=== PATIENT | male | born 1950 | race Caucasian/White ===

== ENCOUNTER 2016-11-10 12:25 | Inpatient (IN) | payer MEDICARE, MEDICAID ==
--- NOTE | 2016-11-10 12:55 | ED Physician Chart ---
Chief Complaint/HPI - Patient Information Date Seen:: 11/10/16 Time Seen:: 12:51 Chief Complaint:: geripsych eval History of Present Illness:: pt sent from [place] for difficult behavior. Was sent over for geripsych eval. pt arrives comfortable and cooperative. he denies any pain or recent illness. states he has no jl pmh. pt from [place]....pt has hx of schizophrenia....reportedly he sometimes runs screaming down hallways c/o hearing voices; this is the case again recently. Allergies:: Allergies Allergy/AdvReac Type Severity Reaction Status Date / Time fluphenazine Allergy Verified 11/10/16 12:32 trifluoperazine Allergy Verified 11/10/16 12:32 [From Stelazine] Vitals:: Vital Signs - 8 hr 11/10/16 12:25 Temp 98.5 F HR 85 RR 16 BP 123/83 O2 Sat % 98 Historian:: Patient, Medical Records Review:: Transfer documents Reviewed Review of Systems - Review of Systems General/Constitutional: No fever, No chills, No weight loss, No weakness, No diaphoresis, No edema, No loss of appetite Skin: No skin lesions, No rash, No bruising Head: No headache, No light-headedness Eyes: No loss of vision, No pain, No diplopia ENT: No earache, No nasal drainage, No sore throat, No tinnitus Neck: No neck pain, No swelling, No thyromegaly, No stiffness, No mass noted Cardio Vascular: No chest pain, No palpitations, No PND, No orthopnea, No edema Pulmonary: No SOB, No cough, No sputum, No wheezing GI: No nausea, No vomiting, No diarrhea, No pain, No melena, No hematochezia, No constipation, No hematemesis G/U: No dysuria, No frequency, No hematuria Musculoskeletal: No bone or joint pain, No back pain, No muscle pain Endocrine: No polyuria, No polydipsia Psychiatric: Prior psych history, No depression, No anxiety, No suicidal ideation, Auditory hallucination Hematopoietic: No bruising, No lymphadenopathy Allergic/Immuno: No urticaria, No angioedema Neurological: No syncope, No focal symptoms, No weakness, No paresthesia, No headache, No seizure, No dizziness, No confusion, No vertigo Past Medical History - Past Medical History Past Medical History: No significant medical hx, HTN, DM, CHF, Asthma/COPD, CVA/ TIA, Dyslipidemia, Arthritis, Other (scoliosis) Social History: Care Facility Psychiatricy History: Schizophrenia, Bipolar Medication: Reviewed Family Medical History - Family Member Mother History Unknown: Yes Hx Family Coronary Artery Disease: (NONE) Hx Family Congestive Heart Failure: (NONE) Physical Exam - Physical Examination General/Constitutional: Awake, Well-developed, well-nourished, Alert, No distress, GCS 15, Non-toxic appearing, Ambulatory Other Gen/Cons comments:: pt calm and cooperative in nad. no complaints. Head: Atraumatic Eyes: Lids, conjuctiva normal, PERRL, EOMI Skin: Nl inspection, No rash, No skin lesions, No ecchymosis, Well hydrated, No lymphadenopathy ENMT: External ears, nose nl, Nasal exam nl, Lips, teeth, gums nl Neck: Nontender, Full ROM w/o pain, No JVD, No nuchal rigidity, No bruit, No mass, No stridor Respiratory: Nl effort/Exclusion, Clear to Auscultation, No Wheeze/Rhonchi/Rales Cardio Vascular: RRR, No murmur, gallop, rubs, NL S1 S2 GI: No tenderness/rebounding/guarding, No organomegaly, No hernia, Normal BS's, Nondistended, No mass/bruits, No McBurney tenderness : No CVA tenderness Extremities: No tenderness or effusion, Full ROM, normal strength in all extremities, No edema, Normal digits & nails Neuro/Psych: Alert/oriented, DTR's symmetric, Normal sensory exam, Normal motor strength, Judgement/insight normal, Mood normal, Normal gait, No focal deficits Misc: normal gait, Normal back, No paraspinal tenderness Labs/Radiology/EKG Results - Lab Results Results: Laboratory Tests 11/10/16 11/10/16 11/10/16 12:50 12:50 12:50 WBC 7.0 D RBC 4.77 Hgb 13.8 Hct 41.0 MCV 85.9 MCH 28.8 MCHC Differential 33.5 RDW 13.5 Plt Count 226 MPV 8.3 Neutrophils % 56.2 Lymphocytes % 30.6 Monocytes % 7.4 Eosinophils % 5.0 Basophils % 0.8 Sodium 133 L Potassium 4.0 Chloride 102 Carbon Dioxide 26.1 Anion Gap 8.9 BUN 14 Creatinine 0.6 L Est GFR ( Amer) > 60.0 Est GFR (Non-Af Amer) > 60.0 BUN/Creatinine Ratio 23.3 Glucose 103 Calcium 9.5 Total Bilirubin 0.5 AST 20 ALT 15 Alkaline Phosphatase 57 Total Protein 6.7 Albumin 4.0 L Globulin 2.7 Albumin/Globulin Ratio 1.5 Triglycerides 136 Cholesterol 167 LDL Cholesterol Direct 97 HDL Cholesterol 55 TSH 1.33 Urine Source Urine Color Urine Clarity Urine pH Ur Specific [place] Urine Protein Urine Glucose (UA) Urine Ketones Urine Blood Urine Nitrate Urine Bilirubin Urine Urobilinogen Ur Leukocyte Esterase Urine RBC Urine WBC Ur Epithelial Cells Urine Bacteria Valproic Acid 11/10/16 11/10/16 12:50 13:00 WBC RBC Hgb Hct MCV MCH MCHC Differential RDW Plt Count MPV Neutrophils % Lymphocytes % Monocytes % Eosinophils % Basophils % Sodium Potassium Chloride Carbon Dioxide Anion Gap BUN Creatinine Est GFR ( Amer) Est GFR (Non-Af Amer) BUN/Creatinine Ratio Glucose Calcium Total Bilirubin AST ALT Alkaline Phosphatase Total Protein Albumin Globulin Albumin/Globulin Ratio Triglycerides Cholesterol LDL Cholesterol Direct HDL Cholesterol TSH Urine Source CLEAN C Urine Color YELLOW Urine Clarity SL. CLOUDY Urine pH 6.5 Ur Specific [place] 1.015 Urine Protein NEGATIVE Urine Glucose (UA) NEGATIVE Urine Ketones NEGATIVE Urine Blood NEGATIVE Urine Nitrate NEGATIVE Urine Bilirubin NEGATIVE Urine Urobilinogen 0.2 Ur Leukocyte Esterase NEGATIVE Urine RBC NONE SEEN Urine WBC NONE SEEN Ur Epithelial Cells RARE Urine Bacteria NONE SEEN Valproic Acid 25.7 L - EKG Interpretations EKG Time:: 13:15 Rhythm: nsr [place]: 11 Rate: 71 Comments:: wnl ED Septic Shock - . Is Septic Shock (SBP<90, OR Lactate>4 mmol\L) present?: No - <6hrs of presentation: Vital Signs: Vital Signs - 8 hr 11/10/16 12:25 Temp 98.5 F HR 85 RR 16 BP 123/83 O2 Sat % 98 Reassessment (Disposition) - Reassessment Reassessment Condition:: Unchanged - Diagnosis Diagnosis:: 1 psychosis 2 medically clear for psych admission - Patient Disposition Admitted to:: [facility] Condition at Disposition:: Unchanged ED Discharge Plan - Patient Disposition Admit/Discharge/Transfer: Other Care w/in this hosp Condition at Disposition: Stable
[2016-11-10 13:03] LABS: % BASOPHILS 0.8 % (0.0-2.0); % LYMPHOCYTES 30.6 % (20.0-50.0); % MONOCYTES 7.4 % (2.0-10.0); % NEUTROPHILS 56.2 % (40.0-80.0); HEMOGLOBIN 13.8 gm/dL (12.6-17.4); MEAN CELL VOLUME 85.9 fl (80-99); MEAN CORPUSCULAR HEMOGLOBIN 28.8 pg (27.0-31.0); MEAN CORPUSCULAR HGB CONC 33.5 pg (28.0-36.0); MEAN PLATELET VOLUME 8.3 fl; PLATELET COUNT 226 Th/cmm (150-400); RED BLOOD COUNT 4.77 Mil/cmm (3.80-5.80); RED CELL DISTRIBUTION WIDTH 13.5 % (11.5-20.0)
[2016-11-10 13:13] LABS: URINE BILIRUBIN NEGATIVE (NEGATIVE); URINE COLOR YELLOW; URINE GLUCOSE (UA) NEGATIVE (NEGATIVE); URINE KETONE NEGATIVE (NEGATIVE)
[2016-11-10 13:14] LABS: URINE BACTERIA NONE SEEN /hpf (NONE SEEN); URINE BLOOD NEGATIVE (NEGATIVE); URINE EPITHELIAL CELLS RARE /lpf (FEW); URINE PH 6.5; URINE PROTEIN NEGATIVE (NEGATIVE); URINE RBC NONE SEEN /hpf (0-5); URINE UROBILINOGEN 0.2 E.U./dL (0.2 - 1.0); URINE WBC NONE SEEN /hpf (0-5)
[2016-11-10 13:22] LABS: ALB/GLOB RATIO 1.5 (1.0-1.8); ALKALINE PHOSPHATASE 57 U/L (34-104); ANION GAP 8.9 (7.0-16.0); BILIRUBIN,TOTAL 0.5 mg/dL (0.3-1.0); BUN - UREA NITROGEN 14 mg/dL (7-25); BUN/CREATININE RATIO 23.3; CALCIUM SERUM 9.5 mg/dL (8.6-10.3); CARBON DIOXIDE 26.1 mEq/L (21.0-31.0); CHLORIDE 102 mEq/L (98-107); CHOLESTEROL 167 mg/dL (<200); CREATININE - SERUM 0.6 mg/dL (0.7-1.3); GLUCOSE 103 mg/dL (70-105); SGOT 20 U/L (13-39); SGPT/ALT 15 U/L (7-52); SODIUM SERUM 133 mEq/L (136-145); TRIGLYCERIDES 136 mg/dL (<150)
[2016-11-10 15:21] VITALS: BP 0/0
[2016-11-10] MEDS ORDERED: Magnesium Hydroxide (MOM) 30 mL UDC PO PRN (15:25)
[2016-11-10] MEDS ORDERED: Maalox 30 mL Cup PO PRN (15:25)
[2016-11-10] MEDS ORDERED: Non-Formulary Item 1 EA (Atorvastatin Calcium [Lipitor] 20 MG) PO SCH (21:00)
--- NOTE | 2016-11-11 01:10 | History & Physical ---
HISTORY OF PRESENT ILLNESS: The patient is a 66-year-old male with long history of hypertension, hyperlipidemia, degenerative joint disease, dementia, admitted to [facility] under Dr. Peguero's service for evaluation and treatment. The patient has been very confused, no chest pain, no shortness of breath, no nausea, no vomiting, no fever, no chills. PAST MEDICAL HISTORY: Significant for hypertension, degenerative joint disease, hyperlipidemia, dementia. PAST SURGICAL HISTORY: No history of recent surgery. ALLERGIES: He is allergic to fluphenazine, which is Prolixin and trifluoperazine. SOCIAL HISTORY: No smoking, alcohol or drugs. FAMILY HISTORY: Noncontributory. REVIEW OF SYSTEMS: RENAL SYSTEM: No history of chronic renal disorder. CARDIOVASCULAR SYSTEM: He has history of hypertension. ENDOCRINE SYSTEM: No diabetes or thyroid problem. GASTROINTESTINAL SYSTEM: No upper or lower gastrointestinal bleed. NEUROLOGICAL: He has history of dementia. PHYSICAL EXAMINATION: GENERAL: He is awake, not coherent. VITAL SIGNS: Temperature is 97.6, heart rate 95, blood pressure 100/64. HEENT: Normocephalic. Pupils reacting to light and accommodation. Sclerae clear. NECK: Supple. Negative for lymphadenopathy, JVD or bruit. CHEST: Bilaterally normal. No rhonchi or wheezing. HEART: S1, S2 normal. ____. ABDOMEN: Soft, bowel sounds positive. EXTREMITIES: No edema. BACK: No tenderness. SKIN: Intact. NEUROLOGIC: He is awake, alert, not fully oriented. No focal motor or sensory deficit. Cranial nerves II-XII intact. ASSESSMENT: 1. Hypertension. 2. Hyperlipidemia. 3. Degenerative joint disease. 4. Dementia. PLAN: The patient admitted to [facility] under Dr. Peguero's service. Medical problem to be addressed during hospitalization is dementia. Medical problems to be addressed at discharge are hypertension and hyperlipidemia. The patient is medically stable for activity. Thank you, Dr. Peguero, for asking me to see your patient. JOB# [id number]
[2016-11-11] MEDS: Multivitamin Tab PO SCH (09:23)
[2016-11-11] MEDS: Aspirin 81mg Chewable Tab PO SCH (09:23)
[2016-11-11] MEDS: Benztropine 1 MG TAB PO SCH (09:23)
[2016-11-11 10:18] LABS: HEP B CORE IGM Negative (Negative); HEP C ANTIBODY <0.1 s/co ratio (0.0-0.9)
--- NOTE | 2016-11-11 15:20 | History & Physical ---
IDENTIFYING INFORMATION: The patient is a 66-year-old male. CHIEF COMPLAINT: "I have been hearing voices." HISTORY OF PRESENT ILLNESS: Presents from [place] because of psychosis. When I talked to him, he agrees that he has been hearing voices and that he was rambling. He is unable to tell me the exact date. He knew this 2016, believe this is October 29, confused, unpredictable, impulsive. He denies having any command hallucination. He sleeps well, eats well. PAST PSYCHIATRIC HISTORY: The patient has a history of schizophrenia with multiple prior admissions to this facility for similar reasons. ALLERGIES: THE PATIENT IS ALLERGIC TO FLUPHENAZINE AND ____. MEDICATIONS: He has been on Tylenol, aspirin. He is on Cogentin 1 mg daily and metoprolol for hypertension and simvastatin, ____ multivitamin. The patient is also on Zyprexa 7.5 mg at bedtime. FAMILY AND SOCIAL HISTORY: Please refer to old records. The patient has been staying at the nursing facility for the past few years. MENTAL STATUS EXAMINATION: The patient is appropriately dressed, not well groomed, he was rambling, admits to hearing voices, but he said they tell him different things that are not command hallucinations. He was irritable, aggressive, unable to tell me the date, where he is, why he is here other than the voices. He believes this is October 26, 2016. Unable to make safe plan for self-care. He has been sleeping and eating well, he reports he is not a good historian. His long and short term memory is a poor because of his psychosis. His insight and judgment is impaired. IMPRESSION: AXIS I: Chronic undifferentiated schizophrenia. MEDICAL DIAGNOSES: Hypertension, hyperlipidemia. His assets, he is accepting treatment. Negative poor coping skills. TREATMENT PLAN: ____ medications. We will do group therapy, milieu therapy, and individual therapy. ESTIMATED LENGTH OF STAY: 3-7 days. DISCHARGE CRITERIA: Decrease in psychosis, agitation after discharge. JOB# [id number]
[2016-11-12] MEDS: Aspirin 81mg Chewable Tab PO SCH (08:38)
[2016-11-12] MEDS: Multivitamin Tab PO SCH (08:38)
[2016-11-12] MEDS: Benztropine 1 MG TAB PO SCH (08:39)
--- NOTE | 2016-11-13 08:26 | Progress Notes ---
Case was discussed with staff of the patient, reviewed records. The patient continues to be responding to internal stimuli. Continues to be unpredictable, impulsive, and needing redirection, internally preoccupied, irritable, and easily agitated. He is compliant with the medication with no side effects, no sedation, no nausea, and no extrapyramidal symptoms. I will be increasing his Zyprexa dose to 10 mg at bedtime. His Depakote level came back low at 25.7, so I will be increasing also his Depakote dose. His current dose of Depakote is 125 twice a day. I will make it 250 twice a day and recheck the level later. We will continue to work with the patient in group therapy, milieu therapy, and adjust the medication as needed. JOB# [id number]
[2016-11-13] MEDS: Benztropine 1 MG TAB PO SCH (09:07)
[2016-11-13] MEDS: Multivitamin Tab PO SCH (09:07)
[2016-11-13] MEDS: Aspirin 81mg Chewable Tab PO SCH (09:07)
--- NOTE | 2016-11-14 05:58 | Progress Notes ---
Case was discussed with staff of the patient, reviewed records. The patient continues to be unpredictable, impulsive, continues to have poor insight, needing redirection. He continues to be internally preoccupied. I did increase the dose of Zyprexa as well as Depakote yesterday. The Depakote level came back. He is compliant with the medication with no side effects, no sedation, no nausea, no extrapyramidal symptoms. Lab Work: Hepatitis panel was negative, CBC within normal range and urinalysis within normal range. His serum sodium is a little bit low at 133 and the rest of chemistry panel within normal range and TSH within normal range. I will be consulting with the medical doctor regarding his abnormal lab work regarding the low sodium level. We will continue to work with the patient in group therapy, milieu therapy, adjust the medication as needed. JOB# [id number]
[2016-11-14] MEDS: Aspirin 81mg Chewable Tab PO SCH (09:59)
[2016-11-14] MEDS: Benztropine 1 MG TAB PO SCH (10:00)
[2016-11-14] MEDS: Multivitamin Tab PO SCH (10:00)
--- NOTE | 2016-11-15 05:43 | Progress Notes ---
Case was discussed with staff of the patient, reviewed records. The patient continues to hear voices. He reports he is not sleeping well at night. Continues to look disheveled, disorganized, internally preoccupied, continues to need redirection and unable to take care of his ADLs. I will be increasing his Zyprexa dose to 12.5 mg at bedtime and so far no side effects, no sedation, no nausea and we will continue to work with the patient in group therapy, milieu therapy and adjust the medications as needed. JOB# [id number]
[2016-11-15] MEDS: Multivitamin Tab PO SCH (09:09)
[2016-11-15] MEDS: Benztropine 1 MG TAB PO SCH (09:09)
[2016-11-15] MEDS: Aspirin 81mg Chewable Tab PO SCH (09:10)
--- NOTE | 2016-11-16 03:12 | Progress Notes ---
Case was discussed with staff of the patient, reviewed records. The patient reports he continues to hear voices. He continues to not sleep well. Continues to be internally preoccupied, looking disheveled, disorganized. Continues to be unable to make safe plan for his self-care. I did increase his olanzapine yesterday to 12.5; however, he is not sleeping well. I will be increasing the Ambien to 10 mg at bedtime, also increase Zyprexa because of the voices to 15 mg at bedtime to help with his sleep. No side effects with the medication, no sedation, no nausea, no extrapyramidal symptoms. We will continue to work with the patient in group therapy, milieu therapy, adjust the medications as needed. JOB# [id number]
[2016-11-16] MEDS: Benztropine 1 MG TAB PO SCH (08:34)
[2016-11-16] MEDS: Multivitamin Tab PO SCH (08:34)
[2016-11-16] MEDS: Aspirin 81mg Chewable Tab PO SCH (08:34)
--- NOTE | 2016-11-17 03:40 | Progress Notes ---
Case was discussed with staff of the patient. The patient reports he continues to hear voices and therefore, he is not sleeping well. I did increase his Zyprexa yesterday to 15 mg at bedtime with no side effects, no sedation, no nausea. We will give it more time to work, as it may not work at the beginning and I will be adding trazodone to his medication to help him with sleep. So far, no side effects, no sedation, no nausea, no extrapyramidal symptoms. We will continue to work with the patient in group therapy, milieu therapy, adjust the medication as needed. JOB# [id number]
[2016-11-17] MEDS: Benztropine 1 MG TAB PO SCH (08:43)
[2016-11-17] MEDS: Multivitamin Tab PO SCH (08:43)
[2016-11-17] MEDS: Aspirin 81mg Chewable Tab PO SCH (08:44)
--- NOTE | 2016-11-18 06:23 | Progress Notes ---
Case was discussed with staff of the patient, reviewed records. The patient reports he continues to hear voices. He is unable to sleep, but he is able to contract for safety. He is not doing well on the higher dose of Zyprexa and I have been increasing the dose daily. He did better, he reports on Seroquel, so I will be discontinuing the Zyprexa and starting the patient on Seroquel, discuss side effects with the patient, so the [facility] and we will continue to work with the patient in group therapy, milieu therapy and adjust the medication as needed. JOB# [id number]
[2016-11-18] MEDS: Aspirin 81mg Chewable Tab PO SCH (09:09)
[2016-11-18] MEDS: Multivitamin Tab PO SCH (09:09)
[2016-11-18] MEDS: Benztropine 1 MG TAB PO SCH (09:10)
--- NOTE | 2016-11-19 08:23 | Progress Notes ---
SUBJECTIVE: The patient seen, chart reviewed, discussed with staff. The patient in the hospital attesting to voices, worsening psychosis, rambling, confused, impulsive, unpredictable, stating that "I get mad", feels medications are not really helping. The patient not sofia for safety, desperate for help, unpredictable, impulsive, still with intense auditory hallucinations. Dr. Peguero is adjusting medications. The patient currently now on Seroquel, tolerating well. No side effects noted. Sleeping fairly well, eating with prompting. ASSESSMENT: The patient remains symptomatic, not safe for a lower level of care, still with intense hallucinations. PLAN: We will increase Seroquel today. Monitor closely for any overt side effects. Continue concerns for the patient's safety. [facility]# [id number]
[2016-11-19] MEDS: Multivitamin Tab PO SCH (08:25)
[2016-11-19] MEDS: Benztropine 1 MG TAB PO SCH (08:25)
[2016-11-19] MEDS: Aspirin 81mg Chewable Tab PO SCH (08:25)
--- NOTE | 2016-11-20 02:34 | Progress Notes ---
SUBJECTIVE: The patient seen, chart reviewed, discussed with staff. The patient remains symptomatic, telling me he hears "crazy voices," states the voices are commanding in nature and he scared and distressed, withdrawn, paranoid, isolative, needs medications, states that he wants medications, adjust ____, states that he gets "upset" because of the voices, still with intense auditory hallucinations, impulsive, unpredictable. Sleeping fairly well, eating with prompting, ADLs with prompting. No EPS. No akathisia noted. ASSESSMENT: The patient is symptomatic, still hallucinating. PLAN: Continue to monitor. We will continue to reassure the patient. Given the severity of his current symptoms, he is not safe for a lower level of care. We will also increase his Seroquel to 150 mg at nighttime to target his psychotic symptoms. [facility]# [id number]
[2016-11-20] MEDS: Aspirin 81mg Chewable Tab PO SCH (08:53)
[2016-11-20] MEDS: Multivitamin Tab PO SCH (08:53)
[2016-11-20] MEDS: Benztropine 1 MG TAB PO SCH (08:53)
--- NOTE | 2016-11-21 01:31 | Progress Notes ---
SUBJECTIVE: The patient is seen, chart reviewed, discussed with staff. The patient remains symptomatic, still talking about "crazy voices", not sofia for safety, depressed, upset, still with hallucinations, still unpredictable, sleeping fairly well, eating fairly well. No EPS. No akathisia noted. Still requiring prompting for ADLs. Concerns for his ability to provide for basic food, clothing and residential. ASSESSMENT: The patient is still symptomatic, still psychotic. PLAN: Continue to monitor. We will continue to titrate medications. The patient remains symptomatic, not safe for a lower level of care. [facility]# [id number]
[2016-11-21] MEDS: Multivitamin Tab PO SCH (09:15)
[2016-11-21] MEDS: Benztropine 1 MG TAB PO SCH (09:15)
[2016-11-21] MEDS: Aspirin 81mg Chewable Tab PO SCH (09:15)
--- NOTE | 2016-11-22 00:39 | Progress Notes ---
SUBJECTIVE: The patient is seen, chart reviewed, discussed with staff. The patient is still talking about voices. Stating the voices "tease me." States the voices "say crazy things to me," still distressing about the voices, depressed, upset, paranoid, isolative, withdrawn, still requiring prompting for ADLs, not doing well due to the severity of his psychotic symptoms, concerns for his ability to utilize basic food, clothing, and detention, spending most of his time in his room, withdrawn. ASSESSMENT: The patient is still symptomatic, still psychotic, still with voices that are distressing. PLAN: We will continue to monitor, we will continue to titrate medications, we will increase Seroquel to 200 mg to try to further target perceptual disturbances. [facility]# [id number]
--- NOTE | 2016-11-22 04:54 | Progress Notes ---
SUBJECTIVE: The patient seen, chart reviewed, discussed with staff. The patient under the care of Dr. Peguero. Remains symptomatic, disorganized, poor orientation, no idea what is going on, stating that he wants to stay home, but this does not making any sense in the context to being in the hospital, still combative, withdrawn, requiring a lot of prompting and redirection, still with episodes of irritability, agitation, unable to participate in any meaningful conversations, requiring prompting for basic food, clothing and [facility]. No EPS noted on exam. Tolerant to medications. ASSESSMENT: The patient remains symptomatic, not safe for a lower level of care. We will continue to monitor. PLAN: We will increase Risperdal to target his combative symptoms, psychotic symptoms, disorganized thought processes. JOB# [id number]
[2016-11-22] MEDS: Benztropine 1 MG TAB PO SCH (09:07)
[2016-11-22] MEDS: Multivitamin Tab PO SCH (09:07)
[2016-11-22] MEDS: Aspirin 81mg Chewable Tab PO SCH (09:07)
--- NOTE | 2016-11-23 00:51 | Progress Notes ---
Case discussed with staff of the patient, reviewed records. The patient continues to report hearing voices. He is unable to sleep well. He continues to be unpredictable, impulsive. Looking disheveled, though he denies any intent to harm himself or anybody. Dr. Vickers increased his Seroquel dose today to be increased to 200 mg or give it a chance. He is compliant with the medication with no side effects, no sedation, no nausea, no extrapyramidal symptoms and we will make further adjustment of the medication depending on how he feels tomorrow. We will continue to work the patient in group therapy, milieu therapy, adjust medication as needed. JOB# [id number]
[2016-11-23] MEDS: Aspirin 81mg Chewable Tab PO SCH (09:15)
[2016-11-23] MEDS: Benztropine 1 MG TAB PO SCH (09:15)
[2016-11-23] MEDS: Multivitamin Tab PO SCH (09:15)
--- NOTE | 2016-11-23 23:36 | Progress Notes ---
Case discussed with staff of the patient, reviewed records. The patient reports hearing voices, but denies command hallucination. He also complained of feeling depressed. He continues to be overwhelmed, continues to be bothered by the voices. I will be increasing the dose, also I will be adding an antidepressant to him, Lexapro and so far no side effects with the medication, no sedation, no nausea, no extrapyramidal symptoms. Discussed the side effects with the patient. Continue the patient in group therapy, milieu therapy, and adjust the medication as needed. JOB# [id number]
[2016-11-24] MEDS: Aspirin 81mg Chewable Tab PO SCH (08:21)
[2016-11-24] MEDS: Escitalopram Oxalate 5 mg Tab PO SCH (08:22)
[2016-11-24] MEDS: Benztropine 1 MG TAB PO SCH (08:22)
[2016-11-24] MEDS: Multivitamin Tab PO SCH (08:22)
--- NOTE | 2016-11-25 02:36 | Progress Notes ---
Case was discussed with staff of the patient, reviewed records. The patient ____ the voices are improving. He accepted that he only slept 3 hours last night. He reports the voices are not command hallucination, ____ about suicide. He said he would never harm himself. He however continues to isolate himself, continues to be unpredictable, impulses, needing redirection, though he denies any intent to harm himself or anybody. He is sleeping, not well. I will be increasing the Seroquel to 400 mg at bedtime and so far no side effects, no sedation, no nausea and no extrapyramidal symptoms. We will continue to work the patient in group therapy, milieu therapy and adjust the medication as needed. JOB# [id number]
[2016-11-25] MEDS: Multivitamin Tab PO SCH (09:14)
[2016-11-25] MEDS: Escitalopram Oxalate 5 mg Tab PO SCH (09:14)
[2016-11-25] MEDS: Benztropine 1 MG TAB PO SCH (09:14)
[2016-11-25] MEDS: Aspirin 81mg Chewable Tab PO SCH (09:14)
[2016-11-25] MEDS ORDERED: Escitalopram Oxalate 5 mg Tab PO SCH (12:06)
--- NOTE | 2016-11-26 05:54 | Progress Notes ---
Case was discussed with staff of the patient, reviewed records. The patient continues to report hearing voices. They are not command hallucination. He reports he would never try to harm himself; however, the voices are bothersome. He is sleeping better. He also reported that he is still depressed. I will be increasing his Lexapro dose to 10 mg a day as he is having no side effects to this. He just started it and also his dose of Seroquel will be increased to 500. The patient used to be on a higher dose of Seroquel in the past and if it does not work, we may have to change it and so far no side effects of the medication, no sedation, no nausea, no extrapyramidal symptoms and we will continue to work the patient in group therapy, milieu therapy and adjust medication as needed. JOB# [id number]
[2016-11-26] MEDS: Multivitamin Tab PO SCH (08:39)
[2016-11-26] MEDS: Benztropine 1 MG TAB PO SCH (08:39)
[2016-11-26] MEDS: Aspirin 81mg Chewable Tab PO SCH (08:39)
[2016-11-26] MEDS: risperiDONE 1 mg/mL 30 mL Bottle PO SCH (17:39)
[2016-11-26] MEDS ORDERED: QUETIAPINE FUMARATE PO SCH (21:00)
--- NOTE | 2016-11-26 21:46 | Progress Notes ---
Case was discussed with staff of the patient, reviewed records. The patient reports he is still not sleeping well. He reports that he is still hearing voices. He believes that Seroquel is not working, he has been on it for 5 days, despite increasing the dose. I will be taking him off the Seroquel, try him on Risperdal, discussed that with the patient, side effects included. He is still not suitable for discharge because of continued psychotic symptoms; however, his hallucinations are not command. He is also not sleeping well, so I will be increasing his trazodone dose to 100 mg a day. We will continue to work with the patient in group therapy, milieu therapy, adjust the medication as needed. JOB# [id number]
[2016-11-27] MEDS: Aspirin 81mg Chewable Tab PO SCH (08:28)
[2016-11-27] MEDS: Benztropine 1 MG TAB PO SCH (08:29)
[2016-11-27] MEDS: Multivitamin Tab PO SCH (08:29)
[2016-11-27] MEDS: risperiDONE 1 mg/mL 30 mL Bottle PO SCH ×2 (08:30→16:31)
--- NOTE | 2016-11-27 21:24 | Progress Notes ---
SUBJECTIVE: The patient seen, chart reviewed. Discussed with staff. The patient remains paranoid, states his mood is "not good," states "everyone is against me," still attesting to voices. The patient being tapered off of Seroquel, now on Risperdal. Dr. Peguero started him on Risperdal to target psychotic symptoms, which remain present. Sleeping fairly well, eating with prompting, ADLs with prompting. He is withdrawn and isolative. ASSESSMENT: The patient remains isolative, withdrawn, depressed, still symptomatic, still with voices. We will continue to monitor and titrate his medications. The patient is not safe for a lower level of care due to the severity of his symptoms. [facility]# [id number]
[2016-11-28] MEDS: Aspirin 81mg Chewable Tab PO SCH (08:59)
[2016-11-28] MEDS: Benztropine 1 MG TAB PO SCH (08:59)
[2016-11-28] MEDS: Multivitamin Tab PO SCH (08:59)
[2016-11-28] MEDS: risperiDONE 1 mg/mL 30 mL Bottle PO SCH ×2 (09:01→17:18)
--- NOTE | 2016-11-28 21:13 | Progress Notes ---
SUBJECTIVE: Chart reviewed and the patient interviewed. Also discussed the patient's condition with the staff and reviewed records and labs. "I couldn't sleep. I hear voices and I am crazy." The patient is still in angry and irritable mood and is still actively hallucinating. The patient also is still staying by himself in his room most of the time. The patient also is still paranoid and he is still having mood swings. Otherwise, the patient is having difficulty with his mood and he is still angry all the time. Also, he is compliant with taking his medications with no side effects of medications. ASSESSMENT: The patient is still psychotic. TREATMENT PLAN: We will continue monitoring his behavior and his condition closely. Also, continue to work on his irritability and we will continue to follow up. [facility]# [id number]
[2016-11-29] MEDS: risperiDONE 1 mg/mL 30 mL Bottle PO SCH ×2 (09:09→16:46)
[2016-11-29] MEDS: Multivitamin Tab PO SCH (09:10)
[2016-11-29] MEDS: Benztropine 1 MG TAB PO SCH (09:10)
[2016-11-29] MEDS: Aspirin 81mg Chewable Tab PO SCH (09:10)
--- NOTE | 2016-11-29 21:38 | Progress Notes ---
Case discussed with staff of the patient, reviewed records. The patient continues to be depressed, feeling worthless, continues to have poor insight. Continues to report hearing voices, but they are not command hallucinations. He continues to be overwhelmed and psychotic, looking disheveled, disorganized, internally preoccupied. I did initiate on him, Risperdal 1 mg twice a day. I will be increasing the dose to 2 mg twice a day and so far no side effects, no sedation, no nausea, no extrapyramidal symptoms and also I will be increasing the trazodone to 200 to help with his sleep and we will continue to work with the patient in group therapy, milieu therapy, adjust the medication as needed. JOB# [id number]
[2016-11-30] MEDS: risperiDONE 1 mg/mL 30 mL Bottle PO SCH ×2 (09:10→17:48)
[2016-11-30] MEDS: Benztropine 1 MG TAB PO SCH (09:12)
[2016-11-30] MEDS: Multivitamin Tab PO SCH (09:12)
[2016-11-30] MEDS: Aspirin 81mg Chewable Tab PO SCH (09:14)
--- NOTE | 2016-12-01 02:07 | Progress Notes ---
Case discussed with staff of the patient, reviewed records. The patient continues to be fairly psychotic. Reports hearing voices. The patient also reported that he feels like people are going to murder him. He is very paranoid, unable to sleep. I did increase his trazodone yesterday. I doubled the dose; however, it does not seem like it is working for him, so I will be taking him off the trazodone and give him Remeron instead and also I will be discussing side effects and also I will be increasing Risperdal to 3 mg twice a day. So far, no side effects of the medication, no sedation, no nausea, and no extrapyramidal symptoms. We will continue to work with the patient in group therapy, milieu therapy, and adjust the medication as needed. JOB# [id number]
[2016-12-01] MEDS: Benztropine 1 MG TAB PO SCH (08:15)
[2016-12-01] MEDS: Aspirin 81mg Chewable Tab PO SCH (08:15)
[2016-12-01] MEDS: Multivitamin Tab PO SCH (08:15)
[2016-12-01] MEDS: risperiDONE 1 mg/mL 30 mL Bottle PO SCH ×2 (08:21→17:01)
--- NOTE | 2016-12-01 23:01 | Progress Notes ---
Case was discussed with staff of the patient, reviewed record. The patient reports he did not sleep well last night, still hearing voices, still paranoid, feeling that he is going to be murdered. He continues to be easily agitated. He is overwhelmed because of poor response to his medication. I have made many adjustments so far with no good outcome. I will be increasing the Depakote today, maybe he will respond better to the antipsychotic and help him with his agitation. Also, I will be increasing the Risperdal to 4 mg twice a day and so far, no side effects with the medication, no sedation, no nausea, no extrapyramidal symptoms. Also, I asked the staff to make sure that the patient is taking his medications and we will continue to work with the patient in group therapy, milieu therapy, adjust the medication as needed. JOB# [id number]
[2016-12-02] MEDS: Benztropine 1 MG TAB PO SCH (08:31)
[2016-12-02] MEDS: Multivitamin Tab PO SCH (08:32)
[2016-12-02] MEDS: Aspirin 81mg Chewable Tab PO SCH (08:33)
[2016-12-02] MEDS: risperiDONE 1 mg/mL 30 mL Bottle PO SCH ×2 (09:44→17:44)
[2016-12-02 13:05] LABS: % BASOPHILS 0.7 % (0.0-2.0); % EOSINOPHILS 4.8 % (0.0-5.0); % LYMPHOCYTES 27.4 % (20.0-50.0); % NEUTROPHILS 59.1 % (40.0-80.0); HEMATOCRIT 43.1 % (39.0-49.0); HEMOGLOBIN 14.4 gm/dL (12.6-17.4); MEAN CELL VOLUME 86.1 fl (80-99); MEAN CORPUSCULAR HEMOGLOBIN 28.8 pg (27.0-31.0); MEAN CORPUSCULAR HGB CONC 33.5 pg (28.0-36.0); MEAN PLATELET VOLUME 8.6 fl; NEUTROPHILE ABSOLUTE 4.9 Th/cmm (1.8-8.0); PLATELET COUNT 233 Th/cmm (150-400); RED BLOOD COUNT 5.01 Mil/cmm (3.80-5.80); RED CELL DISTRIBUTION WIDTH 13.6 % (11.5-20.0); WHITE BLOOD COUNT 8.4 Th/cmm (4.8-10.8)
--- NOTE | 2016-12-02 22:03 | Progress Notes ---
Case was discussed with staff of the patient, reviewed records. He continues to be psychotic, hearing knocks on the wall, very agitated. I have gotten a second opinion from Dr. Hickey, who recommended using Clozaril for him since he is not doing well. We tried him on many medications, so I will be initiating Clozaril on the patient, discussed side effects and so far, no side effects with the medication, no sedation, no nausea, no extrapyramidal symptoms. We will titrate Risperdal down later and we will continue to work with the patient in group therapy, milieu therapy, adjust medication as needed. JOB# [id number]
[2016-12-03] MEDS: risperiDONE 1 mg/mL 30 mL Bottle PO SCH ×2 (09:04→18:17)
[2016-12-03] MEDS: Aspirin 81mg Chewable Tab PO SCH (09:05)
[2016-12-03] MEDS: Benztropine 1 MG TAB PO SCH (09:05)
[2016-12-03] MEDS: Multivitamin Tab PO SCH (09:05)
--- NOTE | 2016-12-03 21:38 | Progress Notes ---
Case discussed with staff of the patient who reports he feels a little bit better, though he is still hearing voices. He still reports not sleeping well. I advised the patient to make sure if he is not sleeping well to tell the staff about it because the staff reports he sleeps well. He continues to be unpredictable and impulsive. I initiated Clozaril for the patient on a small dose and for the covering psychiatrist, I would recommend to increase the Clozaril dose and so far no side effects with the medication, no sedation, no nausea, no extrapyramidal symptoms. We will continue to work with the patient in group therapy, milieu therapy, and adjust the medication as needed. JOB# [id number]
[2016-12-04] MEDS: Aspirin 81mg Chewable Tab PO SCH (08:20)
[2016-12-04] MEDS: Multivitamin Tab PO SCH (08:21)
[2016-12-04] MEDS: Benztropine 1 MG TAB PO SCH (08:22)
[2016-12-04] MEDS: risperiDONE 1 mg/mL 30 mL Bottle PO SCH ×2 (08:28→16:15)
--- NOTE | 2016-12-04 20:02 | Progress Notes ---
SUBJECTIVE: The patient was seen, chart reviewed, discussed with staff. The patient remains symptomatic, still noted to be hearing voices. The patient with perceptual disturbances, still feeling "not good." Dr. Peguero initiated Clozaril, titrating the dose. The patient seems to be tolerating well. Remains depressed, withdrawn, desperate for help. Sleeping well. Eating fairly well. ASSESSMENT: The patient remains symptomatic, still psychotic, not safe for a lower level of care. PLAN: Initiate Clozaril. We will titrate it over the next few days. Monitor closely for any undue side effects. Due to the severity of his psychotic symptoms, he is not safe for discharge at this time. [facility]# [id number]
[2016-12-05] MEDS: risperiDONE 1 mg/mL 30 mL Bottle PO SCH ×3 (08:12→16:34)
[2016-12-05] MEDS: Aspirin 81mg Chewable Tab PO SCH (08:12)
[2016-12-05] MEDS: Multivitamin Tab PO SCH (08:12)
[2016-12-05] MEDS: Benztropine 1 MG TAB PO SCH (08:12)
--- NOTE | 2016-12-05 18:30 | Progress Notes ---
SUBJECTIVE: The patient seen, chart reviewed and discussed with staff. The patient is still symptomatic, still with hallucinations complaining of hallucinations that are disturbing to him. He is asking for some help, desperate for help, depressed and overwhelmed with the voices. The patient is still very upset, isolative and withdrawn. The patient is redirectable following any rules and redirection, but he does remain somewhat disorganized and psychotic and tolerant of Clozaril. ASSESSMENT: The patient remains symptomatic, still psychotic, still with voices that are disturbing to him that are causing him to feel overwhelmed, but desperate. PLAN: We will lower Risperdal today. We will increase Clozaril today. Monitor closely for any overt side effects. [facility]# [id number]
[2016-12-06] MEDS: Benztropine 1 MG TAB PO SCH (09:08)
[2016-12-06] MEDS: Multivitamin Tab PO SCH (09:08)
[2016-12-06] MEDS: Aspirin 81mg Chewable Tab PO SCH (09:08)
[2016-12-06] MEDS: risperiDONE 1 mg/mL 30 mL Bottle PO SCH ×2 (09:09→17:58)
--- NOTE | 2016-12-07 01:07 | Progress Notes ---
Case was discussed with staff of the patient, reviewed records. The patient continues to report hearing voices. He feels that people are going to murder him, he is loud, very irritable, agitated. He reports his sleep is improved a little bit, so his dose of Clozaril was increased to 25 mg at bedtime and 25 mg in the morning, I will be increasing the evening dose to 50 mg a day and so far, no side effects, no sedation, no nausea, no extrapyramidal symptoms. Risperdal dose was decreased to 3 mg twice a day and I will later taper him off the Risperdal and no side effects, no sedation, no nausea, no extrapyramidal symptoms, and we will continue to work with the patient in group therapy, milieu therapy, adjust the medication as needed. JOB# [id number]
[2016-12-07] MEDS: Benztropine 1 MG TAB PO SCH (08:40)
[2016-12-07] MEDS: Aspirin 81mg Chewable Tab PO SCH (08:40)
[2016-12-07] MEDS: Multivitamin Tab PO SCH (08:40)
[2016-12-07] MEDS: risperiDONE 1 mg/mL 30 mL Bottle PO SCH ×2 (08:41→16:58)
--- NOTE | 2016-12-07 23:40 | Progress Notes ---
Case discussed with staff of the patient, reviewed records. The patient continues to be hearing voices, paranoid. He believes the voices are trying to harm him. He continues to be floridly psychotic, not sleeping well, easily agitated, isolating himself. I will be increasing his Clozaril dose at bedtime to 75 mg to help him with sleep and help with psychotic symptoms. He is still not ready to go because of his psychosis, lack of sleep, paranoia. No side effects with the medication, no sedation, no nausea, no extrapyramidal symptoms. I will also taper his Risperdal as well to 2 mg twice a day and maybe stop it later and we will continue to work with the patient in group therapy, milieu therapy, adjust the medication as needed. JOB# [id number]
[2016-12-08] MEDS: Aspirin 81mg Chewable Tab PO SCH (09:38)
[2016-12-08] MEDS: Benztropine 1 MG TAB PO SCH (09:39)
[2016-12-08] MEDS: Multivitamin Tab PO SCH (09:40)
[2016-12-08] MEDS: risperiDONE 1 mg/mL 30 mL Bottle PO SCH ×2 (09:42→18:01)
--- NOTE | 2016-12-08 19:09 | Progress Notes ---
Case was discussed with staff of the patient, reviewed records. The patient continues to be psychotic, loud, continues to be responding to internal stimuli. However, he reports his sleep has improved a little bit. He is still depressed, still unpredictable and impulsive. I will be increasing his Clozaril dose to 100 mg at bedtime and continue the 25 mg in the morning. So far, no side effects with the medication, no sedation, no nausea, and no extrapyramidal symptoms. He is still not ready to go because of his continued psychosis and agitation. We will continue to work with the patient in group therapy, milieu therapy, and adjust the medication as needed. JOB# [id number]
[2016-12-09] MEDS: Aspirin 81mg Chewable Tab PO SCH (09:56)
[2016-12-09] MEDS: Multivitamin Tab PO SCH (09:56)
[2016-12-09] MEDS: Benztropine 1 MG TAB PO SCH (09:56)
[2016-12-09 10:22] LABS: % BASOPHILS 0.8 % (0.0-2.0); % EOSINOPHILS 6.1 % (0.0-5.0); % LYMPHOCYTES 28.4 % (20.0-50.0); % MONOCYTES 12.1 % (2.0-10.0); % NEUTROPHILS 52.6 % (40.0-80.0); HEMATOCRIT 42.4 % (39.0-49.0); HEMOGLOBIN 14.1 gm/dL (12.6-17.4); MEAN CELL VOLUME 86.5 fl (80-99); MEAN CORPUSCULAR HEMOGLOBIN 28.7 pg (27.0-31.0); MEAN CORPUSCULAR HGB CONC 33.2 pg (28.0-36.0); MEAN PLATELET VOLUME 8.4 fl; NEUTROPHILE ABSOLUTE 3.6 Th/cmm (1.8-8.0); PLATELET COUNT 207 Th/cmm (150-400); RED CELL DISTRIBUTION WIDTH 13.6 % (11.5-20.0); WHITE BLOOD COUNT 6.8 Th/cmm (4.8-10.8)
[2016-12-09] MEDS: risperiDONE 1 mg/mL 30 mL Bottle PO SCH ×2 (11:14→17:52)
--- NOTE | 2016-12-10 06:48 | Progress Notes ---
LOCATION: [facility]. Case was discussed with staff of the patient, reviewed records. The patient is ____ Clozaril. He reported the voices are still there, they are loud, they are bothering him. He feels paranoid. He is still not ready to go to a lesser level of care. He has a high eosinophil and monocyte, but his ____ is within normal range. He said he is sleeping a little bit better. He is still loud, irritable, internally preoccupied, paranoid. He is still not ready to go. I will be increasing Clozaril to 125 mg at bedtime and so far, no side effects, no sedation, no nausea, no extrapyramidal symptoms. We will continue to work with the patient in group therapy, milieu therapy, adjust medication as needed. JOB# [id number]
[2016-12-10] MEDS: Multivitamin Tab PO SCH (08:25)
[2016-12-10] MEDS: Benztropine 1 MG TAB PO SCH (08:25)
[2016-12-10] MEDS: Aspirin 81mg Chewable Tab PO SCH (08:25)
[2016-12-10] MEDS: risperiDONE 1 mg/mL 30 mL Bottle PO SCH (08:26)
--- NOTE | 2016-12-10 22:34 | Progress Notes ---
Case discussed with staff of the patient, reviewed records. The patient continues to report hearing voices. He said that he is improving. He continues to isolate himself, continues to be unpredictable, impulsive. He reports he is sleeping better. He continues to have poor insight, unable to make safe plan for his self-care. I will be increasing his Clozaril at bedtime to 150 and I will be decreasing also Risperdal to 1 mg twice a day with the intent of discontinuing it and so far, no side effects with the medication, no sedation, no nausea, no extrapyramidal symptoms and we will continue to work with the patient in group therapy, milieu therapy, adjust medication as needed. [facility]# [id number]
[2016-12-11] MEDS: risperiDONE 1 mg/mL 30 mL Bottle PO SCH ×2 (08:23→16:58)
[2016-12-11] MEDS: Multivitamin Tab PO SCH (08:24)
[2016-12-11] MEDS: Aspirin 81mg Chewable Tab PO SCH (08:24)
[2016-12-11] MEDS: Benztropine 1 MG TAB PO SCH (08:24)
[2016-12-11] MEDS ORDERED: Maalox 30 mL Cup PO PRN (12:54)
--- NOTE | 2016-12-11 20:17 | Progress Notes ---
SUBJECTIVE: Chart reviewed and the patient interviewed. Also discussed the patient's condition with the staff and reviewed records and labs. The patient is still reporting auditory hallucinations and the patient is still stating that the voices are bothering him. The patient also states that the voices although getting slightly less, yet he is still unable to tolerate them. It ____ to isolate himself and is interacting minimally with others. The patient also has unpredictable behavior and he is still impulsive. Otherwise, the patient is cooperative with his treatment and compliant with taking his medications with no side effects of medications. ASSESSMENT: The patient is still paranoid and psychotic. TREATMENT PLAN: We will continue monitoring his behavior and his condition closely. Also, we will continue adjusting psychotropic medications and we will continue to follow up. [facility]# [id number]
[2016-12-12] MEDS: Aspirin 81mg Chewable Tab PO SCH (08:40)
[2016-12-12] MEDS: Multivitamin Tab PO SCH (08:40)
[2016-12-12] MEDS: Benztropine 1 MG TAB PO SCH (08:41)
[2016-12-12] MEDS: risperiDONE 1 mg/mL 30 mL Bottle PO SCH ×2 (08:42→17:31)
--- NOTE | 2016-12-12 22:07 | Progress Notes ---
SUBJECTIVE: Chart reviewed and the patient interviewed. Also discussed the patient's condition with the staff and reviewed records and labs. The patient is still actively hallucinating and he is still complaining of auditory hallucinations "a little bit" and the patient was pointing out with 2 fingers indicating that they are still ____, but in a small amount. The patient is also still paranoid and suspicious and still stating that although the voices are declining, yet he is still bothered by them and they are still keeping him in angry and in irritable mood. The patient also is still suspicious and his thought processes are circumstantial with occasional flight of ideas. ASSESSMENT: The patient is still psychotic and needs close monitoring. TREATMENT PLAN: We will continue monitoring his behavior and his condition closely. Also, we will continue working on his psychosis and adjusting psychotropic medications and we will continue to follow up. JOB# [id number]
[2016-12-13] MEDS: risperiDONE 1 mg/mL 30 mL Bottle PO SCH (08:55)
[2016-12-13] MEDS: Aspirin 81mg Chewable Tab PO SCH (08:56)
[2016-12-13] MEDS: Multivitamin Tab PO SCH (08:56)
[2016-12-13] MEDS: Benztropine 1 MG TAB PO SCH (08:56)
--- NOTE | 2016-12-13 21:52 | Discharge Summary ---
IDENTIFYING INFORMATION: The patient is a 66-year-old male. CHIEF COMPLAINT: "I've been hearing voices." HISTORY OF PRESENT ILLNESS: The patient admitted from [place] because of psychosis. The patient has been hearing voices. He was rambling, unable to tell me the exact date. He knew that it was 2016 ____ October 29, confused, unpredictable, impulsive. He denies having command hallucination. He has a history of schizophrenia with multiple prior admissions to this facility. COURSE IN THE HOSPITAL: The patient was continued with medications. I added Lexapro 10 mg daily and at the beginning he was on Zyprexa, the dose was increased with no progress, changed to Seroquel, increased the dose with no progress. So, I did consult Dr. Hickey, recommended Clozaril, so the patient was started on Clozaril, the dose was increased to 25 mg in the morning and 150 mg at bedtime. The patient progressively got better, though he reported he was hearing them, but not on a constant basis. They come and go. He was not acting in any way dangerous. He never said at all at any point that he was going to harm himself. He was never acting in any way dangerous, so we felt since he is going to a nursing facility, which I go to, that we continue to monitor him at the custodial. So, he was also started on Depakote, increased the dose to 500 mg twice a day, and so the patient was discharged to a lesser level of care. FINAL DIAGNOSES: AXIS I: Chronic undifferentiated schizophrenia. MEDICAL DIAGNOSES: Hypertension, hyperlipidemia. The patient will be going back to [place]. The patient will be followed up with me and the primary care physician there. Expected outcome is stable if the patient complies with the above. JOB# [id number]
== END 2016-12-13 15:00 | DRG 885 ==
LOC: ER 12:25 → GERO 14:25
PROVIDERS: ADMIT Psychiatry & Neurology Psychiatry; ATTEND Psychiatry & Neurology Psychiatry
DX: F20.9 Schizophrenia, unspecified (principal); I11.0 Hypertensive heart disease with heart failure; I50.9 Heart failure, unspecified; F03.90 Unspecified dementia, unspecified severity, without behavioral disturbance, psychotic disturbance, mood disturbance, and anxiety; E11.9 Type 2 diabetes mellitus without complications; J45.909 Unspecified asthma, uncomplicated; J44.9 Chronic obstructive pulmonary disease, unspecified; E78.5 Hyperlipidemia, unspecified; M19.90 Unspecified osteoarthritis, unspecified site; M41.9 Scoliosis, unspecified; F31.9 Bipolar disorder, unspecified; F29 Unspecified psychosis not due to a substance or known physiological condition; Z88.8 Allergy status to other drugs, medicaments and biological substances; Z86.73 Personal history of transient ischemic attack (TIA), and cerebral infarction without residual deficits
CPT/HCPCS: 36415-UA; 80053-TC; 80061-TC; 80074-90; 80164-TC; 81001-TC; 84443-TC; 85025-TC; 86592-TC; 90899; 93005; G0410; Z7610

== ENCOUNTER 2017-05-26 14:02 | Inpatient (IN) | payer MEDICARE, MEDICAID ==
--- NOTE | 2017-05-26 14:16 | ED Physician Chart ---
Chief Complaint/HPI - Patient Information Date Seen:: 05/26/17 Time Seen:: 14:05 Chief Complaint:: visual hallucinations History of Present Illness:: At [facility] he has reportedly been seeing snakes. He thinks that someone is watching him. The EMT got the report that he has been crying a lot. Allergies:: Allergies Allergy/AdvReac Type Severity Reaction Status Date / Time fluphenazine Allergy Verified 11/10/16 12:32 trifluoperazine Allergy Verified 11/10/16 12:32 [From Stelazine] Historian:: Patient, EMS Review:: Nurse's Note Reviewed Review of Systems - Review of Systems General/Constitutional: No fever, No chills Skin: No skin lesions Head: No headache Eyes: No loss of vision ENT: No earache Neck: No neck pain Cardio Vascular: No chest pain, No palpitations Pulmonary: No SOB GI: No nausea, No vomiting G/U: No dysuria, No hematuria Musculoskeletal: No bone or joint pain, No muscle pain Psychiatric: Prior psych history, Visual hallucination Hematopoietic: No bruising Allergic/Immuno: No urticaria, No angioedema Neurological: No syncope, No focal symptoms Past Medical History - Past Medical History Past Medical History: HTN, DM, CHF, Asthma/COPD, Dyslipidemia, Arthritis, Other (hyperlipidemia; paranoid schizophrenia; dementia; major depression cerebrovascular disease; bipolar disorder; scoliosis) Family History: Other (not available) Social History: Non Smoker, No Alcohol, Care Facility Surgical History: other (not available) Psychiatricy History: Schizophrenia, Bipolar, Dementia Medication: Reviewed Family Medical History - Family Member Mother History Unknown: Yes Hx Family Coronary Artery Disease: (NONE) Hx Family Congestive Heart Failure: (NONE) Physical Exam - Physical Examination General/Constitutional: Awake, Well-developed, well-nourished, Alert, No distress Other Gen/Cons comments:: Patient knows the correct month but not the year Head: Atraumatic Eyes: Lids, conjuctiva normal Skin: Nl inspection, No rash, No skin lesions, No ecchymosis, Well hydrated ENMT: External ears, nose nl, TM canals nl, Nasal exam nl Other ENMT comments:: Edentulous Neck: No nuchal rigidity Respiratory: Nl effort/Exclusion, Clear to Auscultation, No Wheeze/Rhonchi/Rales Cardio Vascular: RRR GI: No tenderness/rebounding/guarding, No organomegaly, No hernia : No CVA tenderness Extremities: No tenderness or effusion, Normal digits & nails Neuro/Psych: Alert/oriented Labs/Radiology/EKG Results - Lab Results Results: Laboratory Results - last 24 hr 05/26/17 05/26/17 05/26/17 14:12 14:12 14:12 WBC 9.6 D RBC 5.05 Hgb 14.3 Hct 43.4 MCV 86.0 MCH 28.3 MCHC Differential 32.9 RDW 13.8 Plt Count 268 D MPV 8.3 Neutrophils % 76.9 Lymphocytes % 14.3 L Monocytes % 8.2 Eosinophils % 0.6 Basophils % 0.0 Sodium 137 Potassium 3.5 Chloride 106 Carbon Dioxide 25.3 Anion Gap 9.2 BUN 14 Creatinine 0.7 Est GFR ( Amer) > 60.0 Est GFR (Non-Af Amer) > 60.0 BUN/Creatinine Ratio 20.0 Glucose 109 H Calcium 9.7 Total Bilirubin 0.8 AST 25 ALT 17 Alkaline Phosphatase 76 Total Protein 7.2 Albumin 4.1 L Globulin 3.1 Albumin/Globulin Ratio 1.3 Triglycerides 83 Cholesterol 136 LDL Cholesterol Direct 79 HDL Cholesterol 46 TSH 1.01 Valproic Acid 05/26/17 14:12 WBC RBC Hgb Hct MCV MCH MCHC Differential RDW Plt Count MPV Neutrophils % Lymphocytes % Monocytes % Eosinophils % Basophils % Sodium Potassium Chloride Carbon Dioxide Anion Gap BUN Creatinine Est GFR ( Amer) Est GFR (Non-Af Amer) BUN/Creatinine Ratio Glucose Calcium Total Bilirubin AST ALT Alkaline Phosphatase Total Protein Albumin Globulin Albumin/Globulin Ratio Triglycerides Cholesterol LDL Cholesterol Direct HDL Cholesterol TSH Valproic Acid < 10.0 L - EKG Interpretations Rate & Rhythm: normal sinus rhythm with a rate of 88; normal axis; no ST or T changes ED Septic Shock - . Is Septic Shock (SBP<90, OR Lactate>4 mmol\L) present?: No Reassessment (Disposition) - Reassessment Reassessment Condition:: Unchanged - Diagnosis Diagnosis:: Schizophrenia with visual hallucinations - Patient Disposition Admitted to:: [facility] Admitting Medical Physician:: Thierry Bedoya Admitting Psych Physician:: Diandra Peguero
[2017-05-26 14:26] LABS: % EOSINOPHILS 0.6 % (0.0-5.0); % LYMPHOCYTES 14.3 % (20.0-50.0); % MONOCYTES 8.2 % (2.0-10.0); % NEUTROPHILS 76.9 % (40.0-80.0); HEMATOCRIT 43.4 % (39.0-49.0); HEMOGLOBIN 14.3 gm/dL (12.6-17.4); MEAN CORPUSCULAR HEMOGLOBIN 28.3 pg (27.0-31.0); MEAN CORPUSCULAR HGB CONC 32.9 pg (28.0-36.0); MEAN PLATELET VOLUME 8.3 fl; NEUTROPHILE ABSOLUTE 7.3 Th/cmm (1.8-8.0); RED BLOOD COUNT 5.05 Mil/cmm (3.80-5.80); RED CELL DISTRIBUTION WIDTH 13.8 % (11.5-20.0)
[2017-05-26 14:40] LABS: ALB/GLOB RATIO 1.3 (1.0-1.8); ALKALINE PHOSPHATASE 76 U/L (34-104); ANION GAP 9.2 (7.0-16.0); BILIRUBIN,TOTAL 0.8 mg/dL (0.3-1.0); BUN - UREA NITROGEN 14 mg/dL (7-25); CALCIUM SERUM 9.7 mg/dL (8.6-10.3); CARBON DIOXIDE 25.3 mEq/L (21.0-31.0); CHLORIDE 106 mEq/L (98-107); CHOLESTEROL 136 mg/dL (<200); CREATININE - SERUM 0.7 mg/dL (0.7-1.3); GLUCOSE 109 mg/dL (70-105); POTASSIUM SERUM 3.5 mEq/L (3.5-5.1); SGOT 25 U/L (13-39); SGPT/ALT 17 U/L (7-52); SODIUM SERUM 137 mEq/L (136-145); TRIGLYCERIDES 83 mg/dL (<150)
[2017-05-26 14:41] LABS: PLATELET COUNT 268 Th/cmm (150-400); WHITE BLOOD COUNT 9.6 Th/cmm (4.8-10.8)
[2017-05-26 17:16] VITALS: BP 134/74
[2017-05-26] MEDS ORDERED: Magnesium Hydroxide (MOM) 30 mL UDC PO PRN (17:19)
[2017-05-26] MEDS ORDERED: Non-Formulary Item 1 EA (Melatonin [Melatonin] 3 MG) PO SCH (21:00)
--- NOTE | 2017-05-26 22:20 | History & Physical ---
ADMIT DATE: 05/26/2017 HISTORY OF PRESENT ILLNESS: The patient is a 67-year-old male with long history of diabetes mellitus, hypertension, COPD, dementia, admitted to [facility] for treatment. Apparently, the patient has been very confused, agitated. The patient has been coughing phlegm. The patient . The patient is a poor historian. PAST MEDICAL HISTORY: Significant for hypertension, COPD, diabetes mellitus, dementia. PAST SURGICAL HISTORY: No recent surgery. ALLERGIES: ALLERGIC TO FLUPHENAZINE AND TRIFLUOPERAZINE. MEDICATIONS: Follow admission reconciliation. SOCIAL HISTORY: He is a chronic smoker. No alcohol or drugs. FAMILY HISTORY: Noncontributory. REVIEW OF SYSTEMS: RENAL SYSTEM: No history of chronic renal disorder. CARDIOVASCULAR SYSTEM: No coronary artery disease. ENDOCRINE SYSTEM: He has history of diabetes mellitus. GASTROINTESTINAL SYSTEM: No upper or lower gastrointestinal bleed. NEUROLOGICAL: He has history of dementia. SKELETOMUSCULAR: Has severe kyphosis and osteoporosis. RESPIRATORY: He has history of and COPD. GENITOURINARY: No dysuria or hematuria. PHYSICAL EXAMINATION: GENERAL: He is awake, not coherent. VITAL SIGNS: Temperature 98.6, heart rate 98, blood pressure ____. HEENT: Normocephalic. Pupils reacting to light and accommodation. Sclerae clear. NECK: Supple. Negative for lymphadenopathy, JVD or bruit. CHEST: ____. HEART: S1, S2 normal. ABDOMEN: Soft, bowel sounds positive. EXTREMITIES: No edema. NEUROLOGIC: Awake, not coherent. LABORATORY DATA: White blood cell 9.6, hemoglobin 14.3, hematocrit 43.4, platelet is 268. Sodium 137, potassium 3.5, BUN is 14, creatinine ____. Valproic acid less than 10. ASSESSMENT: 1. Hypertension. 2. Diabetes mellitus. 3. Chronic obstructive pulmonary disease. 4. Dementia. PLAN: The patient is admitted to the hospital and admitted to the Geropsych Department under Dr. Peguero's service. MEDICAL PROBLEMS FOR THIS HOSPITALIZATION: Dementia, psychosis, COPD, diabetes mellitus. MEDICAL PROBLEMS TO BE ADDRESSED AT DISCHARGE: Hypertension, COPD, cessation of smoking, the patient is medically stable for activity. Thank you, Dr. Peguero, for asking me to see your patient. JOB# [id number]
[2017-05-26] MEDS: Albuterol/Ipratropium Neb 3 ML AERS HHN SCH (23:33)
[2017-05-27] MEDS: INSULIN ASPART SLIDING SCALE 100 UNITS/ML UNIT SUBQ SCH (06:17)
[2017-05-27] MEDS: Albuterol/Ipratropium Neb 3 ML AERS HHN SCH ×3 (07:07→22:27)
[2017-05-27] MEDS ORDERED: INSULIN ASPART SLIDING SCALE 100 UNITS/ML UNIT SUBQ SCH (07:30)
[2017-05-27] MEDS ORDERED: Non-Formulary Item 1 EA (Docusate Sodium [Docusate Sodium] 100 MG) PO SCH (09:00)
[2017-05-27] MEDS: Multivitamin w/ Minerals Tab PO SCH (09:03)
[2017-05-27] MEDS: Aspirin 81mg Chewable Tab PO SCH (09:04)
--- NOTE | 2017-05-27 13:04 | Psychosocial Evaluation ---
DATE OF SERVICE: 05/27/2017 IDENTIFYING INFORMATION: The patient is a 67-year-old male. CHIEF COMPLAINT: The patient was referred from [place] because of hallucinations. HISTORY OF PRESENT ILLNESS: The patient himself was a poor historian. He was crying uncontrollably saying that he has a heart attack. He was delusional, reports hearing voices, but they are not command hallucinations, seeing things hard to be controlled. He has apparently been taken of the Clozaril, has not been on any medication so his psychotic symptoms got worse. He denies any current intent to harm himself or anybody. He has not been able to sleep well and eat well. No substance abuse. PAST PSYCHIATRIC HISTORY: Multiple prior admissions to this facility for similar reasons. MEDICAL HISTORY: ALLERGIC TO FLUPHENAZINE, TRIFLUOPERAZINE. He is diabetic. He on insulin. He also has a high triglyceride and on simvastatin. FAMILY AND SOCIAL HISTORY: The patient is single, never , no children. No family involvement. Denies family history of psychotic disorder, and this is according to records. No legal problem. No substance abuse problem. MENTAL STATUS EXAMINATION: The patient is appropriately dressed, not well groomed. He was crying uncontrollably, hard to become consoled. He believed he had a heart attack. He reports hearing voices, but they are not command hallucination. He does not ____ tell him seeing things, unable to tell me what he is seeing. Unable to participate in memory testing because he was overwhelmed, crying, hard to redirect. He reports poor sleep, poor energy, motivation, poor appetite. His insight and judgment is impaired. IMPRESSION: AXIS I: Schizoaffective disorder. MEDICAL DIAGNOSES: Deferred to the medical doctor. His assets, he wants to get help, negative poor coping skills. INITIAL TREATMENT PLAN: The patient will be continued with Seroquel that we started yesterday and then increase the dose. I will be initiating also Remeron on him to help him with his depressive symptoms. We will do group therapy, milieu therapy, individual therapy. ESTIMATED LENGTH OF STAY: 3-7 days. DISCHARGE CRITERIA: Decrease in depression and psychosis. After discharge, outpatient treatment. [facility]# [id number]
--- NOTE | 2017-05-27 20:25 | Internal Medicine Prog Note ---
Internal Medicine Subjective - Subjective Service Date: 05/27/17 Patient seen and examined:: with staff (HE HAS BEEN THROUGHING UP INTENTIOLY.) Patient is:: awake, non-verbal, in bed Per staff patient has:: no adverse event Internal Medicine Objective - Results Result Diagrams: 05/26/17 14:12 05/26/17 14:12 Recent Labs: Laboratory Last Values WBC 9.6 Th/cmm (4.8-10.8) D 05/26/17 14:12 RBC 5.05 Mil/cmm (3.80-5.80) 05/26/17 14:12 Hgb 14.3 gm/dL (12.6-17.4) 05/26/17 14:12 Hct 43.4 % (39.0-49.0) 05/26/17 14:12 MCV 86.0 fl (80-99) 05/26/17 14:12 MCH 28.3 pg (27.0-31.0) 05/26/17 14:12 MCHC Differential 32.9 pg (28.0-36.0) 05/26/17 14:12 RDW 13.8 % (11.5-20.0) 05/26/17 14:12 Plt Count 268 Th/cmm (150-400) D 05/26/17 14:12 MPV 8.3 fl 05/26/17 14:12 Neutrophils % 76.9 % (40.0-80.0) 05/26/17 14:12 Lymphocytes % 14.3 % (20.0-50.0) L 05/26/17 14:12 Monocytes % 8.2 % (2.0-10.0) 05/26/17 14:12 Eosinophils % 0.6 % (0.0-5.0) 05/26/17 14:12 Basophils % 0.0 % (0.0-2.0) 05/26/17 14:12 Sodium 137 mEq/L (136-145) 05/26/17 14:12 Potassium 3.5 mEq/L (3.5-5.1) 05/26/17 14:12 Chloride 106 mEq/L (98-107) 05/26/17 14:12 Carbon Dioxide 25.3 mEq/L (21.0-31.0) 05/26/17 14:12 Anion Gap 9.2 (7.0-16.0) 05/26/17 14:12 BUN 14 mg/dL (7-25) 05/26/17 14:12 Creatinine 0.7 mg/dL (0.7-1.3) 05/26/17 14:12 Est GFR ( Amer) > 60.0 ml/min (>90) 05/26/17 14:12 Est GFR (Non-Af Amer) > 60.0 ml/min 05/26/17 14:12 BUN/Creatinine Ratio 20.0 05/26/17 14:12 Glucose 109 mg/dL (70-105) H 05/26/17 14:12 POC Glucose 94 MG/DL (70 - 105) 05/27/17 05:42 Calcium 9.7 mg/dL (8.6-10.3) 05/26/17 14:12 Total Bilirubin 0.8 mg/dL (0.3-1.0) 05/26/17 14:12 AST 25 U/L (13-39) 05/26/17 14:12 ALT 17 U/L (7-52) 05/26/17 14:12 Alkaline Phosphatase 76 U/L (34-104) 05/26/17 14:12 Total Protein 7.2 gm/dL (6.0-8.3) 05/26/17 14:12 Albumin 4.1 gm/dL (4.2-5.5) L 05/26/17 14:12 Globulin 3.1 gm/dL 05/26/17 14:12 Albumin/Globulin Ratio 1.3 (1.0-1.8) 05/26/17 14:12 Triglycerides 83 mg/dL (<150) 05/26/17 14:12 Cholesterol 136 mg/dL (<200) 05/26/17 14:12 LDL Cholesterol Direct 79 mg/dL (75-193) 05/26/17 14:12 HDL Cholesterol 46 mg/dL (23-92) 05/26/17 14:12 TSH 1.01 uIU/ml (0.34-5.60) 05/26/17 14:12 Valproic Acid < 10.0 ug/mL (50.0-100.0) L 05/26/17 14:12 - Physical Exam Vitals and I&O: Vital Signs Temp 98.2 F 05/27/17 16:22 Pulse 84 05/27/17 16:22 Resp 18 05/27/17 16:22 BP 126/77 05/27/17 16:22 Pulse Ox 96 05/27/17 16:22 Intake & Output 05/27/17 05/27/17 05/28/17 06:59 18:59 06:59 Intake Total 850 Balance 850 Intake: Oral 850 Other: # Voids 4 # Bowel Movements 0 Active Medications: Current Medications Acetaminophen (Tylenol) 650 mg PO Q4HR PRN PRN Reason: Pain (Mild) Stop: 07/25/17 17:18 Albuterol/Ipratropium (Duoneb Neb) 3 ml HHN Q8HRT [facility] Stop: 07/25/17 22:59 Last Admin: 05/27/17 14:01 Dose: 3 ml Aspirin (Aspirin Chewable) 81 mg PO DAILY [facility] Stop: 07/26/17 08:59 Last Admin: 05/27/17 09:04 Dose: 81 mg Docusate Sodium (Colace) 100 mg PO BID [facility] Stop: 07/26/17 08:59 Last Admin: 05/27/17 17:18 Dose: Not Given Insulin Aspart (Novolog Insulin Sliding Scale) 0 units SUBQ 0630 [facility] PRN Reason: Protocol Stop: 07/26/17 06:29 Last Admin: 05/27/17 06:17 Dose: Not Given Lorazepam (Ativan) 0.5 mg PO Q4HR PRN; Protocol PRN Reason: Anxiety Stop: 06/25/17 17:19 Last Admin: 05/26/17 20:14 Dose: 0.5 mg Magnesium Hydroxide (Milk Of Magnesia) 30 ml PO DAILY PRN PRN Reason: Constipation Stop: 07/25/17 17:18 Metoprolol Tartrate (Lopressor) 25 mg PO BID [facility] Stop: 07/26/17 08:59 Last Admin: 05/27/17 17:18 Dose: Not Given Mirtazapine (Remeron) 7.5 mg PO HS [facility] PRN Reason: Protocol Stop: 07/26/17 20:59 Quetiapine Fumarate (Seroquel) 150 mg PO BID [facility] PRN Reason: Protocol Stop: 07/26/17 16:59 Last Admin: 05/27/17 17:00 Dose: Not Given Simvastatin (Zocor) 20 mg PO HS [facility] PRN Reason: Protocol Stop: 07/25/17 20:59 Last Admin: 05/26/17 20:14 Dose: 20 mg Zolpidem Tartrate (Ambien) 5 mg PO HS PRN PRN Reason: Insomnia Stop: 07/25/17 17:19 General: alert, demented, thin HEENT: PERRLA, EOMI, anicteric sclerae, throat clear Neck: Supple, No JVD, No thyromegaly, +2 carotid pulse wo bruit, No LAD Lungs: CTAB, ronchi Cardiovascular: RRR, Normal S1, Normal S2, without murmur Abdomen: non-tender Extremities: clear Neurological: no change - Procedures Procedures: Procedures Procedure Code Date GROUP PSYCHOTHERAPY 81195 07/16/15 GROUP PSYCHOTHERAPY GZHZZZZ 07/16/15 [facility] PSYCHOTHERAP NEC 94.39 09/06/13 OTHER GROUP THERAPY 94.44 05/03/14 RECREATIONAL THERAPY 93.81 08/25/12 Internal Medicine Assmt/Plan - Assessment Assessment: 1.DM. 2.COPD 3.HTN. 4.DEMENTIA. - Plan Plan: CONTINUE ON CURRENT MEDICATION AND DIET.
[2017-05-28] MEDS: INSULIN ASPART SLIDING SCALE 100 UNITS/ML UNIT SUBQ SCH (06:40)
[2017-05-28] MEDS: Albuterol/Ipratropium Neb 3 ML AERS HHN SCH ×2 (07:27→14:46)
[2017-05-28] MEDS: Multivitamin w/ Minerals Tab PO SCH (08:12)
[2017-05-28] MEDS: Aspirin 81mg Chewable Tab PO SCH (08:12)
[2017-05-28 08:42] LABS: % EOSINOPHILS 0.2 % (0.0-5.0); % LYMPHOCYTES 16.1 % (20.0-50.0); % NEUTROPHILS 76.7 % (40.0-80.0); HEMATOCRIT 44.4 % (39.0-49.0); HEMOGLOBIN 14.7 gm/dL (12.6-17.4); MEAN CELL VOLUME 86.4 fl (80-99); MEAN CORPUSCULAR HEMOGLOBIN 28.5 pg (27.0-31.0); MEAN PLATELET VOLUME 8.5 fl; NEUTROPHILE ABSOLUTE 7.9 Th/cmm (1.8-8.0); PLATELET COUNT 275 Th/cmm (150-400); RED BLOOD COUNT 5.14 Mil/cmm (3.80-5.80); WHITE BLOOD COUNT 10.3 Th/cmm (4.8-10.8)
[2017-05-28 08:59] LABS: ALB/GLOB RATIO 1.4 (1.0-1.8); ALKALINE PHOSPHATASE 77 U/L (34-104); ANION GAP 12.6 (7.0-16.0); BILIRUBIN,TOTAL 0.8 mg/dL (0.3-1.0); BUN - UREA NITROGEN 27 mg/dL (7-25); BUN/CREATININE RATIO 33.8; CALCIUM SERUM 10.2 mg/dL (8.6-10.3); CHLORIDE 103 mEq/L (98-107); CREATININE - SERUM 0.8 mg/dL (0.7-1.3); GLUCOSE 120 mg/dL (70-105); POTASSIUM SERUM 3.6 mEq/L (3.5-5.1); SGOT 23 U/L (13-39); SGPT/ALT 16 U/L (7-52); SODIUM SERUM 139 mEq/L (136-145)
--- NOTE | 2017-05-28 10:10 | Diagnostic Imaging Report ---
Exam: KUB. HISTORY: Vomiting. Findings: Supine examination of the abdomen was reviewed. The study demonstrates nonspecific bowel gas pattern. Bony structures intact. No abnormal masses or calcifications are noted. IMPRESSION: Nonspecific bowel gas pattern.
--- NOTE | 2017-05-28 12:23 | Internal Medicine Prog Note ---
Internal Medicine Subjective - Subjective Service Date: 05/28/17 Patient seen and examined:: with staff Patient is:: awake, non-verbal, in bed Per staff patient has:: no adverse event Internal Medicine Objective - Results Result Diagrams: 05/28/17 08:35 05/28/17 08:35 Recent Labs: Laboratory Last Values WBC 10.3 Th/cmm (4.8-10.8) 05/28/17 08:35 RBC 5.14 Mil/cmm (3.80-5.80) 05/28/17 08:35 Hgb 14.7 gm/dL (12.6-17.4) 05/28/17 08:35 Hct 44.4 % (39.0-49.0) 05/28/17 08:35 MCV 86.4 fl (80-99) 05/28/17 08:35 MCH 28.5 pg (27.0-31.0) 05/28/17 08:35 MCHC Differential 33.0 pg (28.0-36.0) 05/28/17 08:35 RDW 14.0 % (11.5-20.0) 05/28/17 08:35 Plt Count 275 Th/cmm (150-400) 05/28/17 08:35 MPV 8.5 fl 05/28/17 08:35 Neutrophils % 76.7 % (40.0-80.0) 05/28/17 08:35 Lymphocytes % 16.1 % (20.0-50.0) L 05/28/17 08:35 Monocytes % 7.0 % (2.0-10.0) 05/28/17 08:35 Eosinophils % 0.2 % (0.0-5.0) 05/28/17 08:35 Basophils % 0.0 % (0.0-2.0) 05/28/17 08:35 Sodium 139 mEq/L (136-145) 05/28/17 08:35 Potassium 3.6 mEq/L (3.5-5.1) 05/28/17 08:35 Chloride 103 mEq/L (98-107) 05/28/17 08:35 Carbon Dioxide 27.0 mEq/L (21.0-31.0) 05/28/17 08:35 Anion Gap 12.6 (7.0-16.0) 05/28/17 08:35 BUN 27 mg/dL (7-25) H 05/28/17 08:35 Creatinine 0.8 mg/dL (0.7-1.3) 05/28/17 08:35 Est GFR ( Amer) > 60.0 ml/min (>90) 05/28/17 08:35 Est GFR (Non-Af Amer) > 60.0 ml/min 05/28/17 08:35 BUN/Creatinine Ratio 33.8 05/28/17 08:35 Glucose 120 mg/dL (70-105) H 05/28/17 08:35 POC Glucose 110 MG/DL (70 - 105) H 05/28/17 05:46 Calcium 10.2 mg/dL (8.6-10.3) 05/28/17 08:35 Total Bilirubin 0.8 mg/dL (0.3-1.0) 05/28/17 08:35 AST 23 U/L (13-39) 05/28/17 08:35 ALT 16 U/L (7-52) 05/28/17 08:35 Alkaline Phosphatase 77 U/L (34-104) 05/28/17 08:35 Total Protein 7.6 gm/dL (6.0-8.3) 05/28/17 08:35 Albumin 4.4 gm/dL (4.2-5.5) 05/28/17 08:35 Globulin 3.2 gm/dL 05/28/17 08:35 Albumin/Globulin Ratio 1.4 (1.0-1.8) 05/28/17 08:35 Triglycerides 83 mg/dL (<150) 05/26/17 14:12 Cholesterol 136 mg/dL (<200) 05/26/17 14:12 LDL Cholesterol Direct 79 mg/dL (75-193) 05/26/17 14:12 HDL Cholesterol 46 mg/dL (23-92) 05/26/17 14:12 TSH 1.01 uIU/ml (0.34-5.60) 05/26/17 14:12 Valproic Acid < 10.0 ug/mL (50.0-100.0) L 05/26/17 14:12 RPR NONREACTIVE (NONREACTIVE) 05/26/17 14:12 - Physical Exam Vitals and I&O: Vital Signs Temp 98 F 05/27/17 20:47 Pulse 87 05/27/17 22:37 Resp 20 05/27/17 22:37 BP 106/64 05/27/17 20:47 Pulse Ox 97 05/27/17 22:37 Intake & Output 05/27/17 05/28/17 05/28/17 18:59 06:59 18:59 Intake Total 850 240 Output Total 1 Balance 850 239 Intake: Oral 850 240 Output: Urine 1 Other: # Voids 4 # Bowel Movements 0 Active Medications: Current Medications Acetaminophen (Tylenol) 650 mg PO Q4HR PRN PRN Reason: Pain (Mild) Stop: 07/25/17 17:18 Albuterol/Ipratropium (Duoneb Neb) 3 ml HHN Q8HRT [facility] Stop: 07/25/17 22:59 Last Admin: 05/28/17 07:27 Dose: 3 ml Aspirin (Aspirin Chewable) 81 mg PO DAILY [facility] Stop: 07/26/17 08:59 Last Admin: 05/28/17 08:12 Dose: Not Given Docusate Sodium (Colace) 100 mg PO BID [facility] Stop: 07/26/17 08:59 Last Admin: 05/28/17 08:12 Dose: Not Given Insulin Aspart (Novolog Insulin Sliding Scale) 0 units SUBQ 0630 [facility] PRN Reason: Protocol Stop: 07/26/17 06:29 Last Admin: 05/28/17 06:40 Dose: Not Given Lorazepam (Ativan) 0.5 mg PO Q4HR PRN; Protocol PRN Reason: Anxiety Stop: 06/25/17 17:19 Last Admin: 05/26/17 20:14 Dose: 0.5 mg Magnesium Hydroxide (Milk Of Magnesia) 30 ml PO DAILY PRN PRN Reason: Constipation Stop: 07/25/17 17:18 Metoprolol Tartrate (Lopressor) 25 mg PO BID [facility] Stop: 07/26/17 08:59 Last Admin: 05/28/17 08:12 Dose: Not Given Mirtazapine (Remeron) 7.5 mg PO HS [facility] PRN Reason: Protocol Stop: 07/26/17 20:59 Quetiapine Fumarate (Seroquel) 200 mg PO BID [facility] PRN Reason: Protocol Stop: 07/27/17 16:59 Simvastatin (Zocor) 20 mg PO HS [facility] PRN Reason: Protocol Stop: 07/25/17 20:59 Last Admin: 05/27/17 20:34 Dose: Not Given Zolpidem Tartrate (Ambien) 5 mg PO HS PRN PRN Reason: Insomnia Stop: 07/25/17 17:19 General: alert, demented, thin HEENT: PERRLA, EOMI, anicteric sclerae, throat clear Neck: Supple, No JVD, No thyromegaly, +2 carotid pulse wo bruit, No LAD Lungs: CTAB, ronchi Cardiovascular: RRR, Normal S1, Normal S2, without murmur Abdomen: non-tender Extremities: clear Neurological: no change - Procedures Procedures: Procedures Procedure Code Date GROUP PSYCHOTHERAPY 01525 07/16/15 GROUP PSYCHOTHERAPY GZHZZZZ 07/16/15 INDIVID PSYCHOTHERAP NEC 94.39 09/06/13 OTHER GROUP THERAPY 94.44 05/03/14 RECREATIONAL THERAPY 93.81 08/25/12 Internal Medicine Assmt/Plan - Assessment Assessment: 1.DM. 2.COPD 3.HTN. 4.DEMENTIA. - Plan Plan: CONTINUE ON CURRENT MEDICATION AND DIET.
[2017-05-28] MEDS ORDERED: Midazolam 1mg/ml 2 ml vial IV ONE ×2 (18:29→18:45)
[2017-05-28] MEDS ORDERED: Sodium Chloride 0.9% 1,000 ML IV ONE (18:48)
--- NOTE | 2017-05-28 20:57 | ED Physician Chart ---
Chief Complaint/HPI - Patient Information Date Seen:: 05/28/17 Time Seen:: 06:30 Chief Complaint:: syncope History of Present Illness:: 67-year-old male admitted to the geriatric psych unit with acute, brief, now improving, severe, loss of consciousness but happened about 5 minutes prior to my arrival. Had associated coughing. In the setting of rapid response being called. Patient was apparently eating dinner and suddenly collapsed. There is reported to have cyanosis of the lips. Regain consciousness after coughing on the floor. History limited by patient's underlying severe psychological disease History provided by nursing staff Allergies:: Allergies Allergy/AdvReac Type Severity Reaction Status Date / Time fluphenazine Allergy Verified 05/26/17 15:29 trifluoperazine Allergy Verified 05/26/17 15:29 [From Stelazine] Historian:: Other Review:: Nurse's Note Reviewed, Old Chart Reviewed Review of Systems - Review of Systems Other: Complete system review otherwise unremarkable except as noted in history of present illness. Past Medical History - Past Medical History Past Medical History: Other Family History: None Social History: Non Smoker, No Alcohol, No Drug Use, Care Facility Surgical History: None Psychiatricy History: Other Medication: Reviewed Family Medical History - Family Member Mother History Unknown: Yes Ethnicity: Unknown Living Status: Unknown Hx Family Coronary Artery Disease: (NONE) Hx Family Congestive Heart Failure: (NONE) Physical Exam - Physical Examination Other:: INITIAL VITAL SIGNS: Reviewed by me GENERAL: Alert and interactive. Agitated HEAD: Head is normocephalic and atraumatic EYES: EOMI. PERRL. No scleral icterus. No conjunctival injection ENT: Moist mucous membranes. NECK: Supple. No masses. Full range of motion RESPIRATORY: No tachypnea. Clear breath sounds bilaterally. No wheezing, rales, or rhonchi CV: Tachycardic No murmurs, rubs, or gallops ABDOMEN: Soft, non-distended, non-tender. No guarding. No rebound. No masses. EXTREMITIES: No deformity. No cyanosis. No edema. SKIN: Warm and dry. No obvious rashes. NEUROLOGIC: Alert and oriented. Face is symmetric. Speech is normal. Moves all extremities equally. Motor and sensory distally intact. Labs/Radiology/EKG Results - Lab Results Results: Laboratory Tests 0805/26/17 05/26/17 14:12 14:12 14:12 WBC 9.6 D RBC 5.05 Hgb 14.3 Hct 43.4 MCV 86.0 MCH 28.3 MCHC Differential 32.9 RDW 13.8 Plt Count 268 D MPV 8.3 Neutrophils % 76.9 Lymphocytes % 14.3 L Monocytes % 8.2 Eosinophils % 0.6 Basophils % 0.0 Sodium 137 Potassium 3.5 Chloride 106 Carbon Dioxide 25.3 Anion Gap 9.2 BUN 14 Creatinine 0.7 Est GFR ( Amer) > 60.0 Est GFR (Non-Af Amer) > 60.0 BUN/Creatinine Ratio 20.0 Glucose 109 H Calcium 9.7 Total Bilirubin 0.8 AST 25 ALT 17 Alkaline Phosphatase 76 Total Protein 7.2 Albumin 4.1 L Globulin 3.1 Albumin/Globulin Ratio 1.3 Triglycerides 83 Cholesterol 136 LDL Cholesterol Direct 79 HDL Cholesterol 46 TSH 1.01 Valproic Acid RPR 05/26/17 05/26/17 14:12 14:12 WBC RBC Hgb Hct MCV MCH MCHC Differential RDW Plt Count MPV Neutrophils % Lymphocytes % Monocytes % Eosinophils % Basophils % Sodium Potassium Chloride Carbon Dioxide Anion Gap BUN Creatinine Est GFR ( Amer) Est GFR (Non-Af Amer) BUN/Creatinine Ratio Glucose Calcium Total Bilirubin AST ALT Alkaline Phosphatase Total Protein Albumin Globulin Albumin/Globulin Ratio Triglycerides Cholesterol LDL Cholesterol Direct HDL Cholesterol TSH Valproic Acid < 10.0 L RPR NONREACTIVE - Radiology Results Results: Single AP VIEW Portable Chest X-ray was interpreted independently and contemporaneously by Belia Flores MD: No cardiomegaly Normal mediastinum No lung infiltrates No pneumothorax No soft tissue or bony abnormalities - EKG Interpretations Comments:: 12-lead EKG Interpretation by Belia Flores MD: Sinus tachycardia with ventricular rate of 148 beats per minute Normal axis Normal intervals No acute ST or T wave changes. No obvious STEMI ED Septic Shock - . Is Septic Shock (SBP<90, OR Lactate>4 mmol\L) present?: No Reassessment (Disposition) - Reassessment Reassessment:: This was a patient who is admitted to the geriatric psych unit. He was eating dinner. Apparently he collapsed with lips turning blue and coughing. He was apparently unresponsive initially. Rapid response was called. By the time I arrived the patient was agitated but alert. He has severe psychological illness which makes it difficult to obtain a clear history from him. He is quite tachycardic as I auscultate his chest. EKG shows sinus tachycardia. We did give him some calming medication as he was quite agitated. He got 2 mg of intramuscular Versed. The tachycardia appeared to be sinus tachycardia. For this we administered 1 L of IV normal saline. The patient's heart rate greatly improved after the fluid bolus. Chest x-ray was clear. There was some concern that he may have aspirated however lung sounds were clear. SPO2 was good on room air as when I arrived. Blood sugar was good. Most likely the patient choked on some food had cleared his own airway prior to my arrival. Currently resolved after IV fluid bolus. The agitation resolved after the intramuscular Versed. The admitting physician was called. We've we recommended the patient be transferred to telemetry temporarily to monitor him. Admitting hospitalist transfer patient to telemetry for further observation. Most likely this patient can return to the geriatric psych unit after he is observed for some time. Reassessment Condition:: Improved - Diagnosis Diagnosis:: Syncope due to choking on food bolus Tachycardia Agitation - Patient Disposition Discharge/Transfer:: Acute Care w/in this hosp Admitted to:: Telemetry Time:: 21:01 Condition at Disposition:: Improved ED Discharge Plan - Patient Disposition Admit/Discharge/Transfer: Other Care w/in this hosp
--- NOTE | 2017-05-29 02:14 | Progress Notes ---
DATE: 05/28/2017 Case was discussed with staff of the patient, reviewed records. The patient believes he is having a heart attack. He is very agitated. We tried to medicate him, but his pulse was higher, and he is compliant with the medication with no side effects, no sedation, no nausea, no extrapyramidal symptoms. I did increase his Seroquel yesterday to 150 mg twice a day and I will make further adjustments to 200 mg twice a day, and so far, no sedation, no nausea, no extrapyramidal symptoms. We will continue to work with the patient in group therapy, milieu therapy, adjust medication as needed. JOB# [id number]
--- NOTE | 2017-05-29 08:02 | Diagnostic Imaging Report ---
Exam: Chest x-ray. HISTORY: Cough Findings: Frontal examination of chest was reviewed no prior studies available comparison. Bony thorax is intact. Mediastinal structures midline. The costophrenic angles are clear. No acute pulmonic infiltrates or effusions are noted. IMPRESSION: No acute disease.
--- NOTE | 2017-05-29 21:08 | Discharge Summary ---
DATE OF DISCHARGE: 05/28/2017 IDENTIFYING INFORMATION: The patient is a 67-year-old male. HISTORY OF PRESENT ILLNESS: The patient was sent from [facility] because of psychosis. When I first met the patient, the patient was crying. He felt he was having a heart attack, he was very psychotic. He is a well-known case to me as I have seen him many times before at [facility] and also here. The patient is a poor historian. He admits to hearing voices, but they are not command hallucination. COURSE IN THE HOSPITAL: The patient was started on Seroquel, the dose was increased to 100 mg twice a day; however, the patient yesterday, the day of his discharge in the morning, felt he was having a heart attack and we checked his vital signs. The patient also given Remeron 7.5 mg at bedtime and increased his Seroquel to 100 mg twice a day; however, he developed a seizure in the evening and was transferred to the Telemetry. FINAL DIAGNOSES: AXIS I: Schizoaffective disorder. MEDICAL DIAGNOSES: Deferred to the medical doctor. The patient was transferred to the medical floor because of seizure. JOB# [id number]
== END 2017-05-28 18:45 | DRG 885 ==
LOC: ER 14:02 → GERO 16:38
PROVIDERS: ADMIT Psychiatry & Neurology Psychiatry; ATTEND Psychiatry & Neurology Psychiatry
DX: F25.9 Schizoaffective disorder, unspecified (principal); F03.90 Unspecified dementia, unspecified severity, without behavioral disturbance, psychotic disturbance, mood disturbance, and anxiety; I11.0 Hypertensive heart disease with heart failure; I50.9 Heart failure, unspecified; J44.9 Chronic obstructive pulmonary disease, unspecified; E11.9 Type 2 diabetes mellitus without complications; F17.210 Nicotine dependence, cigarettes, uncomplicated; E78.5 Hyperlipidemia, unspecified; M19.90 Unspecified osteoarthritis, unspecified site; F32.9 Major depressive disorder, single episode, unspecified; M41.9 Scoliosis, unspecified; R55 Syncope and collapse; R00.0 Tachycardia, unspecified; Z88.8 Allergy status to other drugs, medicaments and biological substances; Z86.73 Personal history of transient ischemic attack (TIA), and cerebral infarction without residual deficits
CPT/HCPCS: 36415-UA; 71010-TC; 74000-TC; 80053-TC; 80061-TC; 80164-TC; 82948-90; 84443-TC; 85025-TC; 86592-TC; 93005; 94760; J2250; J7030; Z7610

== ENCOUNTER 2017-05-28 19:40 | Inpatient (IN) | payer MEDICARE, MEDICAID ==
[2017-05-28 21:29] VITALS: BP 98/65
[2017-05-28] MEDS ORDERED: Magnesium Hydroxide (MOM) 30 mL UDC PO PRN (23:22)
[2017-05-29] MEDS: D5-0.45NS w/20 mEq KCL 1,000 ML IV SCH (01:03)
[2017-05-29 05:39] LABS: % BASOPHILS 0.3 % (0.0-2.0); % EOSINOPHILS 0.5 % (0.0-5.0); % LYMPHOCYTES 22.3 % (20.0-50.0); % MONOCYTES 11.7 % (2.0-10.0); % NEUTROPHILS 65.2 % (40.0-80.0); MEAN CELL VOLUME 85.5 fl (80-99); MEAN CORPUSCULAR HEMOGLOBIN 27.9 pg (27.0-31.0); MEAN CORPUSCULAR HGB CONC 32.6 pg (28.0-36.0); MEAN PLATELET VOLUME 8.3 fl; NEUTROPHILE ABSOLUTE 4.9 Th/cmm (1.8-8.0); PLATELET COUNT 234 Th/cmm (150-400); RED BLOOD COUNT 4.67 Mil/cmm (3.80-5.80); RED CELL DISTRIBUTION WIDTH 13.9 % (11.5-20.0)
[2017-05-29 05:59] LABS: WHITE BLOOD COUNT 7.5 Th/cmm (4.8-10.8)
[2017-05-29 06:12] LABS: ANION GAP 5.5 (7.0-16.0); BUN - UREA NITROGEN 24 mg/dL (7-25); BUN/CREATININE RATIO 34.3; CALCIUM SERUM 9.2 mg/dL (8.6-10.3); CARBON DIOXIDE 30.3 mEq/L (21.0-31.0); CHLORIDE 111 mEq/L (98-107); CREATININE - SERUM 0.7 mg/dL (0.7-1.3); GLUCOSE 109 mg/dL (70-105); POTASSIUM SERUM 3.8 mEq/L (3.5-5.1); SODIUM SERUM 143 mEq/L (136-145)
[2017-05-29] MEDS: INSULIN ASPART SLIDING SCALE 100 UNITS/ML UNIT SUBQ SCH (06:46)
[2017-05-29] MEDS: Albuterol/Ipratropium Neb 3 ML AERS HHN SCH ×2 (07:39→15:57)
[2017-05-29] MEDS: Multivitamin w/ Minerals Tab PO SCH (08:27)
[2017-05-29] MEDS: Aspirin 81mg Chewable Tab PO SCH (08:27)
[2017-05-29] MEDS ORDERED: Non-Formulary Item 1 EA (Docusate Sodium [Docusate Sodium] 100 MG) PO SCH (09:00)
[2017-05-29] MEDS ORDERED: VTE Chemical Prophylaxis Screen/Admission MC PRN (10:03)
[2017-05-29] MEDS ORDERED: Diltiazem 5 mg/mL 5mL Vial IVP STA (15:42)
[2017-05-29] MEDS ORDERED: Diltiazem 5 mg/mL 5mL Vial IVP PRN (18:30)
[2017-05-29] MEDS ORDERED: Non-Formulary Item 1 EA (Melatonin [Melatonin] 3 MG) PO SCH (21:00)
--- NOTE | 2017-05-29 22:23 | History & Physical ---
ADMIT DATE: 05/29/2017 CHIEF COMPLAINT: Seizure disorder, tachycardia. HISTORY OF PRESENT ILLNESS: The patient is a 67-year-old male with long history of dementia, diabetes mellitus, hypertension, resident at [facility], transferred to telemetry with tachycardia with possible seizure disorder. The patient is a poor historian. On arrival, the patient started on IV fluid, Cardizem ordered. Cardiology consultation obtained. No fever, no chills, no nausea, and no vomiting. PAST MEDICAL HISTORY: Dementia, psychosis, hypertension, and diabetes mellitus. PAST SURGICAL HISTORY: No recent surgery. ALLERGIES: None. MEDICATIONS: Follow admission reconciliation. SOCIAL HISTORY: No smoking, alcohol, or drug. FAMILY HISTORY: Noncontributory. REVIEW OF SYSTEMS: IMMUNO SYSTEM: No history of chronic renal disorder. CARDIOVASCULAR SYSTEM: He has history of hypertension, tachycardia. ENDOCRINE SYSTEM: He has history of diabetes mellitus. GASTROINTESTINAL SYSTEM: No upper or lower gastrointestinal bleed. NEUROLOGICAL: He has history ____ dementia, psychosis. PHYSICAL EXAMINATION: GENERAL: He is awake, not coherent. VITAL SIGNS: Temperature 97.8, heart rate 116, and blood pressure 144/90. HEENT: Normocephalic. Pupils are reacting to light and accommodation. Sclerae clear. NECK: Supple. Negative for lymphadenopathy, JVD, or bruit. CHEST: Bilateral normal. No rhonchi or wheezing. HEART: S1 and S2 normal. Tachycardia. ABDOMEN: Soft, bowel sounds positive. EXTREMITIES: No edema. NEUROLOGIC: Awake, not coherent. LABORATORY DATA: White blood 7.5, hemoglobin 13, hematocrit 40, and platelets 234,000. Sodium 143, potassium 3.8, BUN 24, creatinine 0.7, and glucose 109. ASSESSMENT: 1. Possible seizure disorder. 2. Supraventricular tachycardia. 3. Hypertension. 4. Diabetes mellitus. 5. Dementia. 6. Psychosis. PLAN: The patient admitted to the hospital under Dr. Bedoya's service, started on IV fluids, regular diet. The patient will resume his medication. Dr. Jared Ruby, Cardiology consult on the case. Dr. Farah, Neurology consult on the case. The patient is a Full Code. CBC, CMP, magnesium level in a.m. JOB# [id number]
[2017-05-30] MEDS: Albuterol/Ipratropium Neb 3 ML AERS HHN SCH ×4 (00:43→22:38)
--- NOTE | 2017-05-30 03:43 | Consultation ---
DATE OF CONSULTATION: 05/28/2017 IDENTIFYING INFORMATION: The patient is a 67-year-old male. HISTORY OF PRESENT ILLNESS: The patient was transferred from [facility] because the patient developed a seizure. The patient himself was a poor historian, internally preoccupied. He had normal voices responding to internal stimuli. He is a well-known case to me as I have seen him many times here at this hospital, so I follow him at [facility]. PAST PSYCHIATRIC HISTORY: Multiple prior hospitalizations because of psychosis. MEDICAL HISTORY: Deferred to the medical doctor. ALLERGIES: HE IS ALLERGIC TO FLUPHENAZINE AND TRIFLUOPERAZINE. MEDICATIONS: He has been on Seroquel 200 mg twice a day and Remeron 7.5 mg at bedtime. FAMILY AND SOCIAL HISTORY: The patient has been staying at the nursing facility at [facility]. No family involvement. No family history of psychiatric disorder. MENTAL STATUS EXAMINATION: The patient is appropriately dressed, not well groomed. He was alert, he was internally preoccupied, unable to participate in meaningful conversation or make safe plan for self-care. Unable to test his memory because he was somewhat tearful, but in general, he is calmer compared to how he was when he was in [facility] as he was tearful that he was having heart attack. The patient's insight and judgment is impaired. IMPRESSION: AXIS I: Schizoaffective disorder. MEDICAL DIAGNOSIS: Deferred to the medical doctor. I would recommend to continue medication. She may need to go back to [facility] when medically cleared. Thank you very much for allowing me to participate in the care of this most interesting gentleman. JOB# [id number]
[2017-05-30 05:37] LABS: % BASOPHILS 0.9 % (0.0-2.0); % EOSINOPHILS 4.6 % (0.0-5.0); % MONOCYTES 9.2 % (2.0-10.0); % NEUTROPHILS 56.3 % (40.0-80.0); HEMATOCRIT 37.2 % (39.0-49.0); HEMOGLOBIN 12.6 gm/dL (12.6-17.4); MEAN CELL VOLUME 84.9 fl (80-99); MEAN CORPUSCULAR HEMOGLOBIN 28.8 pg (27.0-31.0); MEAN CORPUSCULAR HGB CONC 33.9 pg (28.0-36.0); MEAN PLATELET VOLUME 7.6 fl; NEUTROPHILE ABSOLUTE 3.9 Th/cmm (1.8-8.0); PLATELET COUNT 211 Th/cmm (150-400); RED BLOOD COUNT 4.38 Mil/cmm (3.80-5.80); RED CELL DISTRIBUTION WIDTH 13.5 % (11.5-20.0); WHITE BLOOD COUNT 6.9 Th/cmm (4.8-10.8)
[2017-05-30 06:12] LABS: ALB/GLOB RATIO 1.3 (1.0-1.8); ALKALINE PHOSPHATASE 61 U/L (34-104); ANION GAP 5.3 (7.0-16.0); BILIRUBIN,TOTAL 1.1 mg/dL (0.3-1.0); BUN - UREA NITROGEN 10 mg/dL (7-25); BUN/CREATININE RATIO 16.7; CALCIUM SERUM 8.8 mg/dL (8.6-10.3); CHLORIDE 104 mEq/L (98-107); CHOLESTEROL 106 mg/dL (<200); CREATININE - SERUM 0.6 mg/dL (0.7-1.3); GLUCOSE 94 mg/dL (70-105); MAGNESIUM 1.8 mg/dL (1.9-2.7); POTASSIUM SERUM 3.3 mEq/L (3.5-5.1); SGOT 43 U/L (13-39); SGPT/ALT 23 U/L (7-52); SODIUM SERUM 135 mEq/L (136-145); TRIGLYCERIDES 84 mg/dL (<150)
--- NOTE | 2017-05-30 06:14 | Consultation ---
DATE OF CONSULTATION: 05/28/2017 HISTORY OF PRESENT ILLNESS: This 67-year-old male was seen and examined at the courtesy of Dr. Andrews. The patient was admitted here from [facility]. Cardiology consult was called for marked sinus tachycardia. Proper history is not available from the patient. Information obtained from the chart. The patient does have a history of hypertension, diabetes type 2, chronic obstructive pulmonary disease, hyperlipidemia, dementia, psych problem of schizoaffective disorders. The patient has been very restless, confused, uncooperative, did not give any history of chest pains. Appears very anxious. PAST MEDICAL HISTORY: History of hypertension, COPD, diabetes mellitus, and dementia. PSYCH PROBLEMS: As mentioned above. No other past history available. SOCIAL HISTORY: The patient has history of chronic smoking, no alcohol, or drugs. FAMILY HISTORY: Not significant. REVIEW OF SYSTEMS: Not available from the patient. PHYSICAL EXAMINATION: VITAL SIGNS: Heart rate was 86 now, sinus rhythm, blood pressure 105/54, temperature 98.8, respirations 19, O2 saturation 100%. SKIN: Normal. HEAD: Head is normocephalic. Eyes: Conjunctivae pink. There is no icterus in the eyes. Pupils equally reactive to light. NECK: There was no increased jugular vein distention, no thyromegaly, no lymphadenopathy. Carotids equal both sides. CHEST: Bilaterally symmetrical and moved well with respirations. Respiratory movements equal both sides. Trachea is central. percussion There were no rhonchi, no rales. CARDIOVASCULAR SYSTEM: PMI not well localized. There is no pulsation or thrill. No parasternal heave. S1 normal, S2 physiologic. There was no S3, no rub. ABDOMEN: Soft, no tenderness, no rigidity, no guarding. Bowel sounds are present. EXTREMITIES: There was no edema, no calf tenderness. Peripheral pulses slightly diminished. LABORATORY DATA: EKG showed sinus rhythm, sinus tachycardia. There were no other acute changes. Sodium was 143, potassium 3.8, chloride 111, CO2 30.3, BUN 24, creatinine 0.7, glucose 109, calcium was 9.2. WBC was 7.5, hemoglobin 13, hematocrit 40, platelet count was 234. Chest x-ray showed no acute disease. MEDICATIONS: He responded well to IV Cardizem and Lopressor. His other medications include NovoLog for the diabetes. He is also getting IV fluids half normal saline. He is also on aspirin, Lopressor, Seroquel, Remeron, simvastatin, Cardizem p.r.n., Ambien, and Ativan p.r.n. IMPRESSION: Sinus tachycardia, most probably related to his underlying psych condition such as confusion, restlessness, anxiety; hypertension under control, diabetes type 2, chronic obstructive pulmonary disease, dementia, hyperlipidemia, psych problem of schizoaffective disorder. PLAN: To continue present management. We will get EKG, thyroid panel, lipid panel, and echocardiogram. Thank you, and Dr. Nisa Ruby will be following him in the morning. JOB# [id number]
[2017-05-30] MEDS: INSULIN ASPART SLIDING SCALE 100 UNITS/ML UNIT SUBQ SCH (06:22)
--- NOTE | 2017-05-30 07:25 | Consultation ---
DATE OF CONSULTATION: 05/30/2017 HISTORY OF PRESENT ILLNESS: The patient is a 67-year-old. The patient was in [facility]. Transferred because of seizure. The patient at the moment is awake, alert. Confused. No seizure while here. PAST MEDICAL HISTORY: Dementia, psychosis, hypertension, diabetes. PAST SURGICAL HISTORY: None recently. ALLERGIES: None. MEDICATIONS: As per reconciliation. The patient here on lorazepam 0.5 p.r.n., mirtazapine 7.5 mg at night, Seroquel 200 mg b.i.d., Ambien. I do not see any seizure medication, will start the patient on Keppra. REVIEW OF SYSTEMS: The patient's 12-point negative except for above. ALLERGIES: None known. PHYSICAL EXAMINATION: VITAL SIGNS: Temperature 97.3, blood pressure 132/87, pulse is around 90. NECK: Supple, no bruits. HEART: Sounds S1, S2. LUNGS: Clear. NEUROLOGIC: The patient is awake. Dysarthria. The patient is confused, gives me his name, but does not even give me his age, does not know where he is. He is able to name simple objects such as pen and glasses. CRANIAL NERVES: Pupils react to light. Full eye movement, no nystagmus. No facial weakness. MOTOR: He has some abnormal movements of the face, tongue. Lifts both arms up equal. Will lift both legs up equal. Reflexes about 1. Difficult to get at the ankles. INVESTIGATIONS: No MRI or CAT scan. LABORATORY DATA: WBC 6.9, hemoglobin 12.6, sodium 143, potassium is 3.8, calcium 9.2. IMPRESSION: 1. Seizure. 2. Dementia. 3. Psychosis. 4. Hypertension. 5. Diabetes. PLAN: The patient's CT scan of the head. Further workup depending on findings. We will hold off medications unless repeat seizure. JOB# [id number]
[2017-05-30] MEDS: Aspirin 81mg Chewable Tab PO SCH (09:12)
[2017-05-30] MEDS: Multivitamin w/ Minerals Tab PO SCH (09:15)
[2017-05-30] MEDS ORDERED: Mag Sulfate 2gm/50mL Premix 2 GM/50 ML BAG IV ONE (11:37)
[2017-05-30] MEDS ORDERED: Potassium Chloride 20 mEq ER Tab PO ONE (11:37)
--- NOTE | 2017-05-30 14:13 | Cardiology ---
05/30/[address] Bedoya. M-MODE ECHOCARDIOGRAM: Mitral valve, anterior leaflet of mitral valve shows normal excursion, EF velocity. Posterior mitral valve shows normal excursion. Left ventricular posterior wall shows increased thickness, normal excursion. Interventricular septum shows increased thickness, normal excursion, hypertrophy of the left ventricle, ejection fraction 50%. Left atrium normal. Aortic root shows normal dimension, normal excursion of aortic leaflets. CONCLUSION: Hypertrophy of the left ventricle, ejection fraction 50%. 2D ECHO: Long axis view showed normal sized left ventricle with hypertrophy of the left ventricle. Left atrium normal. Aortic root shows normal dimension, normal excursion of aortic leaflets. Short axis view of mitral valve normal. Short axis view of aortic valve normal. Apical four chamber view showed normal sized left ventricle with hypertrophy of the left ventricle. Left atrium normal. Right ventricular cavity, right atrium normal. No pericardial effusion. CONCLUSION: Hypertrophy of the left ventricle, ejection fraction 50%. Doppler study shows prominent A wave consistent with ____ compliance of left ventricle. Right ventricular systolic pressure 21 mmHg. [facility]# [id number]
--- NOTE | 2017-05-30 17:27 | Internal Medicine Prog Note ---
Internal Medicine Subjective - Subjective Service Date: 05/30/17 Patient seen and examined:: with staff Patient is:: awake, in bed, confused Per staff patient has:: no adverse event (HE IS EATING WELL AND TAKING MEDICATION) Internal Medicine Objective - Results Result Diagrams: 05/30/17 05:30 05/30/17 05:30 Recent Labs: Laboratory Last Values WBC 6.9 Th/cmm (4.8-10.8) 05/30/17 05:30 RBC 4.38 Mil/cmm (3.80-5.80) 05/30/17 05:30 Hgb 12.6 gm/dL (12.6-17.4) 05/30/17 05:30 Hct 37.2 % (39.0-49.0) L 05/30/17 05:30 MCV 84.9 fl (80-99) 05/30/17 05:30 MCH 28.8 pg (27.0-31.0) 05/30/17 05:30 MCHC Differential 33.9 pg (28.0-36.0) 05/30/17 05:30 RDW 13.5 % (11.5-20.0) 05/30/17 05:30 Plt Count 211 Th/cmm (150-400) 05/30/17 05:30 MPV 7.6 fl 05/30/17 05:30 Neutrophils % 56.3 % (40.0-80.0) 05/30/17 05:30 Lymphocytes % 29.0 % (20.0-50.0) 05/30/17 05:30 Monocytes % 9.2 % (2.0-10.0) 05/30/17 05:30 Eosinophils % 4.6 % (0.0-5.0) 05/30/17 05:30 Basophils % 0.9 % (0.0-2.0) 05/30/17 05:30 Sodium 135 mEq/L (136-145) L 05/30/17 05:30 Potassium 3.3 mEq/L (3.5-5.1) L 05/30/17 05:30 Chloride 104 mEq/L (98-107) 05/30/17 05:30 Carbon Dioxide 29.0 mEq/L (21.0-31.0) 05/30/17 05:30 Anion Gap 5.3 (7.0-16.0) L 05/30/17 05:30 BUN 10 mg/dL (7-25) 05/30/17 05:30 Creatinine 0.6 mg/dL (0.7-1.3) L 05/30/17 05:30 Est GFR ( Amer) > 60.0 ml/min (>90) 05/30/17 05:30 Est GFR (Non-Af Amer) > 60.0 ml/min 05/30/17 05:30 BUN/Creatinine Ratio 16.7 05/30/17 05:30 Glucose 94 mg/dL (70-105) 05/30/17 05:30 POC Glucose 94 MG/DL (70 - 105) 05/30/17 06:20 Calcium 8.8 mg/dL (8.6-10.3) 05/30/17 05:30 Magnesium 1.8 mg/dL (1.9-2.7) L 05/30/17 05:30 Total Bilirubin 1.1 mg/dL (0.3-1.0) H 05/30/17 05:30 AST 43 U/L (13-39) H 05/30/17 05:30 ALT 23 U/L (7-52) 05/30/17 05:30 Alkaline Phosphatase 61 U/L (34-104) 05/30/17 05:30 Total Protein 5.8 gm/dL (6.0-8.3) L 05/30/17 05:30 Albumin 3.3 gm/dL (4.2-5.5) L 05/30/17 05:30 Globulin 2.5 gm/dL 05/30/17 05:30 Albumin/Globulin Ratio 1.3 (1.0-1.8) 05/30/17 05:30 Triglycerides 84 mg/dL (<150) 05/30/17 05:30 Cholesterol 106 mg/dL (<200) 05/30/17 05:30 LDL Cholesterol Direct 50 mg/dL (75-193) L 05/30/17 05:30 HDL Cholesterol 41 mg/dL (23-92) 05/30/17 05:30 - Physical Exam Vitals and I&O: Vital Signs Temp 98.2 F 05/30/17 12:00 Pulse 110 05/30/17 14:43 Resp 14 05/30/17 14:43 BP 106/72 05/30/17 12:00 Pulse Ox 97 05/30/17 14:43 Intake & Output 05/29/17 05/30/17 05/30/17 18:59 06:59 18:59 Intake Total 1020 Balance 1020 Weight (lbs) 65.771 kg 63.957 kg Intake: Oral 1020 Other: # Voids 4 Active Medications: Current Medications Acetaminophen (Tylenol) 650 mg PO Q4HR PRN PRN Reason: Pain (Mild) Stop: 07/27/17 23:21 Albuterol/Ipratropium (Duoneb Neb) 3 ml HHN Q8HRT [facility] Stop: 07/28/17 06:59 Last Admin: 05/30/17 14:42 Dose: 3 ml Aspirin (Aspirin Chewable) 81 mg PO DAILY [facility] Stop: 07/28/17 08:59 Last Admin: 05/30/17 09:12 Dose: 81 mg Docusate Sodium (Colace) 100 mg PO BID [facility] Stop: 07/28/17 08:59 Last Admin: 05/30/17 17:01 Dose: 100 mg Potassium Chloride/Dextrose/Sod Cl (D5-0.45ns W/20 Meq Kcl) 1,000 mls @ 75 mls/ hr IV .[id number] [facility] Stop: 07/27/17 23:19 Last Admin: 05/29/17 01:03 Dose: 75 mls/hr Insulin Aspart (Novolog Insulin Sliding Scale) 0 units SUBQ 0630 JOEL PRN Reason: Protocol Stop: 07/28/17 06:29 Last Admin: 05/30/17 06:22 Dose: Not Given Lorazepam (Ativan) 0.5 mg PO Q4HR PRN; Protocol PRN Reason: Agitation Stop: 07/27/17 23:21 Last Admin: 05/29/17 17:21 Dose: 0.5 mg Magnesium Hydroxide (Milk Of Magnesia) 30 ml PO DAILY PRN PRN Reason: Constipation Stop: 07/27/17 23:21 Metoprolol Tartrate (Lopressor) 50 mg PO BID [facility] Stop: 07/29/17 08:59 Last Admin: 05/30/17 17:00 Dose: 50 mg Mirtazapine (Remeron) 7.5 mg PO HS [facility] PRN Reason: Protocol Stop: 07/28/17 20:59 Last Admin: 05/29/17 20:14 Dose: 7.5 mg Miscellaneous (Vte Chemical Prophylaxis Screen/ Admission) 1 ea [facility] PRN PRN PRN Reason: PROTOCOL Stop: 07/28/17 10:02 Quetiapine Fumarate (Seroquel) 200 mg PO BID JOEL PRN Reason: Protocol Stop: 07/28/17 08:59 Last Admin: 05/30/17 17:01 Dose: 200 mg Simvastatin (Zocor) 20 mg PO HS JOEL PRN Reason: Protocol Stop: 07/28/17 20:59 Last Admin: 05/29/17 20:15 Dose: 20 mg Zolpidem Tartrate (Ambien) 5 mg PO HS PRN PRN Reason: Insomnia Stop: 07/27/17 23:21 Last Admin: 05/30/17 01:57 Dose: 5 mg General: demented HEENT: NC/AT, PERRLA, EOMI, anicteric sclerae, throat clear Neck: Supple, No JVD, No thyromegaly Lungs: CTAB Cardiovascular: RRR, Normal S1, Normal S2, without murmur Abdomen: soft, non-tender, non-distended Neurological: no change - Procedures Procedures: Procedures Procedure Code Date GROUP PSYCHOTHERAPY 45795 07/16/15 GROUP PSYCHOTHERAPY GZHZZZZ 07/16/15 INDIVID PSYCHOTHERAP NEC 94.39 09/06/13 OTHER GROUP THERAPY 94.44 05/03/14 RECREATIONAL THERAPY 93.81 08/25/12 Internal Medicine Assmt/Plan - Assessment Assessment: 1.POSSIBLE SEIZURE. 2.DM 3.HTN. 4.DEMENTIA. - Plan Plan: CONTINUE ON CURRENT MEDICATION AND DIET.
[2017-05-31] MEDS: D5-0.45NS w/20 mEq KCL 1,000 ML IV SCH (00:53)
--- NOTE | 2017-05-31 04:17 | Progress Notes ---
DATE: 05/30/2017 The patient is still in telemetry. The patient had a seizure 2 days ago, transferred to med/surg. The patient continues to be fearful, acting like he is praying. Continues to be unpredictable, impulsive, frightened. He needs to go back to [facility] when medically cleared. I have him Seroquel 200 mg twice a day with no side effects, no sedation, no nausea, no extrapyramidal symptoms. We will continue to work with the patient in group therapy, milieu therapy, adjust medication as needed. JOB# [id number]
[2017-05-31] MEDS: INSULIN ASPART SLIDING SCALE 100 UNITS/ML UNIT SUBQ SCH (06:26)
[2017-05-31 07:04] LABS: ANION GAP 7.6 (7.0-16.0); BUN - UREA NITROGEN 10 mg/dL (7-25); BUN/CREATININE RATIO 16.7; CALCIUM SERUM 8.9 mg/dL (8.6-10.3); CARBON DIOXIDE 28.5 mEq/L (21.0-31.0); CHLORIDE 103 mEq/L (98-107); CREATININE - SERUM 0.6 mg/dL (0.7-1.3); GLUCOSE 104 mg/dL (70-105); MAGNESIUM 1.9 mg/dL (1.9-2.7); POTASSIUM SERUM 4.1 mEq/L (3.5-5.1); SODIUM SERUM 135 mEq/L (136-145)
[2017-05-31] MEDS: Albuterol/Ipratropium Neb 3 ML AERS HHN SCH (07:39)
[2017-05-31] MEDS: Aspirin 81mg Chewable Tab PO SCH (08:39)
[2017-05-31] MEDS: Multivitamin w/ Minerals Tab PO SCH (08:39)
--- NOTE | 2017-05-31 10:40 | Diagnostic Imaging Report ---
Head CT without intravenous contrast Indication: CVA, history of seizure Comparison: None Technique: Axial images were obtained from the vertex to the skull base without IV contrast. Coronal reconstructions were made. Total DLP: 643, CTDI34 FINDINGS: Images of the brain obtained without contrast demonstrate no acute hemorrhage. No mass lesions identified. The ventricles and basal cisterns are patent. The purcell-white matter differentiation is preserved. There is no mass effect or midline shift. No skull fractures identified. No soft tissue swelling. There is mucosal thickening in the paranasal sinuses. Sclerotic bilateral mastoid air cells are seen with complete opacification of the left mastoid air cells and partial opacification right mastoid air cells. IMPRESSION: No CT evidence of an acute intracranial abnormality. If indicated, follow up MRI may also be obtained. Bilateral mastoid air cell disease left greater than right. Please correlate clinically for mastoiditis.
[2017-06-03 13:18] LABS: THYROGLOBULIN AB <1.0
== END 2017-05-31 16:14 | DRG 101 ==
LOC: TELE 19:40 → MSI 05-30 13:43
PROVIDERS: ADMIT Family Medicine; ATTEND Family Medicine
DX: G40.909 Epilepsy, unspecified, not intractable, without status epilepticus (principal); I47.1 Supraventricular tachycardia; F03.90 Unspecified dementia, unspecified severity, without behavioral disturbance, psychotic disturbance, mood disturbance, and anxiety; J44.9 Chronic obstructive pulmonary disease, unspecified; I10 Essential (primary) hypertension; E11.9 Type 2 diabetes mellitus without complications; F29 Unspecified psychosis not due to a substance or known physiological condition; F25.9 Schizoaffective disorder, unspecified; F41.9 Anxiety disorder, unspecified; E78.5 Hyperlipidemia, unspecified; F17.210 Nicotine dependence, cigarettes, uncomplicated; Z88.8 Allergy status to other drugs, medicaments and biological substances
CPT/HCPCS: 36415-UA; 70450-TC; 80048-TC; 80053-TC; 80061-TC; 82948-90; 83735-TC; 83880-TC; 84432-90; 85025-TC; 86235-90; 90779; 90784; 93005; 94760; J1815; J3475; Z7610

== ENCOUNTER 2017-05-31 16:49 | Inpatient (IN) | payer MEDICARE, MEDICAID ==
[2017-05-31 17:56] VITALS: BP 97/57
[2017-05-31] MEDS ORDERED: Maalox 30 mL Cup PO PRN (20:27)
[2017-05-31] MEDS ORDERED: Magnesium Hydroxide (MOM) 30 mL UDC PO PRN (20:27)
[2017-05-31] MEDS: Albuterol/Ipratropium Neb 3 ML AERS HHN SCH (23:43)
--- NOTE | 2017-06-01 00:42 | Progress Notes ---
DATE: 05/31/2017 Case was discussed with staff of the patient. The patient is much calmer. He is not as agitated and tearful he was. He was crying all the time. He was very upset; however, in general, he has better. We probably have to send him back to [facility] when he is medically cleared by his medical doctor. I thank you very much for allowing me to participate in the care of this most interesting gentleman. JOB# [id number]
[2017-06-01] MEDS: INSULIN ASPART SLIDING SCALE 100 UNITS/ML UNIT SUBQ SCH (05:52)
[2017-06-01] MEDS: Albuterol/Ipratropium Neb 3 ML AERS HHN SCH ×3 (08:30→22:15)
--- NOTE | 2017-06-01 09:51 | Psychosocial Evaluation ---
DATE OF SERVICE: 05/31/2017 IDENTIFYING INFORMATION: The patient is a 67-year-old male. CHIEF COMPLAINT: "I am hearing voices." HISTORY OF PRESENT ILLNESS: Transferred back from the medical floor and he was transferred there 2 days ago after he had a seizure. He was stabilized. He was started back on the Seroquel while he was there 200 mg twice a day. The patient apparently continues to hear voices, somewhat confused, unable to tell me the date, where he is, he knew he is in the hospital, not sure of the name. He denies that the voices telling him to harm himself. He states he is no longer hearing them already; however, he was internally preoccupied. PAST PSYCHIATRIC HISTORY: Multiple prior admissions to this facility for similar reasons. I have been seeing him for years now at [place]. MEDICAL HISTORY: THE PATIENT IS ALLERGIC TO FLUPHENAZINE AND TRIFLUOPERAZINE. The patient had seizure recently, was worked up while on the medical unit. I do not see any seizure medications. FAMILY AND SOCIAL HISTORY: The patient was single, never , and has been staying at [place]. No family involvement. MENTAL STATUS EXAMINATION: The patient is appropriately dressed, not well groomed. He was internally preoccupied. He did not say much, mainly he is fine. Unable to tell me the date, where he is, he knows he is here because he was hearing voices. He denies any intent to harm himself or anybody. His sleeping and appetite varies. He hears voices and on, but they are not command hallucination. Long-term memory is good for his age. Recent memory is a poor, still not sure about the exact events led to his admission because of his psychosis. He reports he can think. His insight and judgment is impaired. IMPRESSION: AXIS I: Chronic paranoid schizophrenia with acute exacerbation. MEDICAL DIAGNOSES: Deferred to the medical doctor. His assets, he wants to get help. Negative poor coping skills. INITIAL TREATMENT PLAN: The patient will be able to start back on medication. We will do group therapy, milieu therapy, individual therapy. ESTIMATED LENGTH OF STAY: 3-7 days. DISCHARGE CRITERIA: Decreased agitation and psychosis after discharge to outpatient treatment. JOB# [id number]
[2017-06-01] MEDS: Multivitamin Tab PO SCH (11:03)
[2017-06-01] MEDS: Aspirin 81mg Chewable Tab PO SCH (11:05)
--- NOTE | 2017-06-01 19:57 | History & Physical ---
ADMIT DATE: 06/01/2017 HISTORY OF PRESENT ILLNESS: The patient is a 67-year-old male with long history of diabetes mellitus, hypertension, degenerative joint disease, dementia, admitted to [facility] under Dr. Peguero's service for evaluation and treatment. The patient today had some back pain. No fever, no chills, no nausea, no vomiting, and no seizure disorder. The patient is eating well. PAST MEDICAL HISTORY: Significant for hypertension, diabetes mellitus, degenerative joint disease, and dementia. PAST SURGICAL HISTORY: No recent surgery. ALLERGIES: None. MEDICATIONS: Follow admission reconciliation. SOCIAL HISTORY: No smoking, alcohol, or drugs. FAMILY HISTORY: Noncontributory. REVIEW OF SYSTEMS: RENAL SYSTEM: No history of chronic renal disorder. CARDIOVASCULAR SYSTEM: No coronary artery disease. ENDOCRINE SYSTEM: Has history of diabetes mellitus. GASTROINTESTINAL SYSTEM: No upper or lower gastrointestinal bleed. NEUROLOGIC: History of dementia. MUSCULOSKELETAL SYSTEM: He has back pain and degenerative joint disease. PHYSICAL EXAMINATION: GENERAL: He is awake, alert, not fully coherent. VITAL SIGNS: Temperature 98.2, heart rate 96, and blood pressure 105/63. HEENT: Normocephalic. Pupils are reacting equal to light and accommodation. Sclerae clear. NECK: Supple. Negative for lymphadenopathy, JVD, or bruit. CHEST: Bilateral normal. No rhonchi or wheezing. HEART: S1 and S2 normal. No murmur or gallop. ABDOMEN: Soft, bowel sounds positive. EXTREMITIES: No edema. BACK: No tenderness. SKIN: Intact. GENITALIA: Rectal examination done by primary physician. NEUROLOGIC: He is awake, alert, not fully oriented. No focal motor or sensory deficits. Cranial nerves 2-12 are intact. ASSESSMENT: 1. Hypertension. 2. Diabetes mellitus. 3. Hyperlipidemia. 4. Chronic back pain. 5. Dementia. PLAN: The patient is in the hospital under Dr. Peguero's service. MEDICAL PROBLEM TO BE ADDRESSED DURING HOSPITALIZATION: Dementia. MEDICAL PROBLEM TO BE ADDRESSED AT DISCHARGE: Hypertension, diabetes mellitus, and hyperlipidemia. The patient was started on Ultram 50 mg q.8 hour p.r.n. for back pain. The patient is cleared for activity. Thank you, Dr. Peguero, for asking me to see your patient. JOB# [id number]
[2017-06-02] MEDS: INSULIN ASPART SLIDING SCALE 100 UNITS/ML UNIT SUBQ SCH (06:34)
[2017-06-02] MEDS: Albuterol/Ipratropium Neb 3 ML AERS HHN SCH ×3 (07:13→23:14)
[2017-06-02] MEDS: Multivitamin Tab PO SCH (09:04)
[2017-06-02] MEDS: Aspirin 81mg Chewable Tab PO SCH (09:05)
--- NOTE | 2017-06-02 17:28 | Internal Medicine Prog Note ---
Internal Medicine Subjective - Subjective Service Date: 06/02/17 Patient seen and examined:: with staff Patient is:: awake, verbal, in bed, confused Per staff patient has:: no adverse event Internal Medicine Objective - Results Recent Labs: Laboratory Last Values POC Glucose 114 MG/DL (70 - 105) H 06/02/17 06:32 - Physical Exam Vitals and I&O: Vital Signs Temp 97.6 F 06/02/17 14:00 Pulse 112 06/02/17 16:09 Resp 18 06/02/17 15:14 BP 100/74 06/02/17 16:09 Pulse Ox 96 06/02/17 15:14 Intake & Output 06/01/17 06/02/17 06/02/17 18:59 06:59 18:59 Intake Total 1200 Balance 1200 Intake: Oral 1200 Other: # Voids 2 # Bowel Movements 1 0 Active Medications: Current Medications Acetaminophen (Tylenol) 650 mg PO Q4HR PRN PRN Reason: Mild Pain / Temp above 100 Stop: 07/30/17 20:26 Al Hydrox/Mg Hydrox/Simethicone (Maalox) 30 ml PO Q4HR PRN PRN Reason: GI DISTRESS Stop: 07/30/17 20:26 Albuterol/Ipratropium (Duoneb Neb) 3 ml HHN Q8HRT [facility] Stop: 07/30/17 22:59 Last Admin: 06/02/17 07:13 Dose: 3 ml Aspirin (Aspirin Chewable) 81 mg PO DAILY [facility] Stop: 07/31/17 08:59 Last Admin: 06/02/17 09:05 Dose: 81 mg Docusate Sodium (Colace) 100 mg PO BID [facility] Stop: 07/31/17 08:59 Last Admin: 06/02/17 16:08 Dose: 100 mg Insulin Aspart (Novolog Insulin Sliding Scale) 0 units SUBQ 0630 JOEL PRN Reason: Protocol Stop: 07/31/17 06:29 Last Admin: 06/02/17 06:34 Dose: Not Given Lorazepam (Ativan) 0.5 mg PO Q4HR PRN; Protocol PRN Reason: Anxiety Stop: 06/30/17 20:26 Last Admin: 06/01/17 01:20 Dose: 0.5 mg Magnesium Hydroxide (Milk Of Magnesia) 30 ml PO HS PRN PRN Reason: Constipation Metoprolol Tartrate (Lopressor) 50 mg PO BID JOEL Stop: 07/31/17 08:59 Last Admin: 06/02/17 16:09 Dose: Not Given Mirtazapine (Remeron) 7.5 mg PO HS JOEL PRN Reason: Protocol Stop: 07/30/17 20:59 Last Admin: 06/01/17 21:33 Dose: 7.5 mg Multivitamins/Vitamin C (Theragran) 1 tab PO DAILY [facility] Stop: 07/31/17 08:59 Last Admin: 06/02/17 09:04 Dose: 1 tab Quetiapine Fumarate (Seroquel) 200 mg PO BID JOEL PRN Reason: Protocol Stop: 07/31/17 08:59 Last Admin: 06/02/17 16:07 Dose: 200 mg Simvastatin (Zocor) 20 mg PO HS JOEL PRN Reason: Protocol Stop: 07/30/17 20:59 Last Admin: 06/01/17 21:33 Dose: 20 mg Tramadol HCl (Ultram) 50 mg PO Q8HR PRN PRN Reason: Pain (Moderate) Stop: 07/31/17 19:27 Last Admin: 06/02/17 16:08 Dose: 50 mg Zolpidem Tartrate (Ambien) 5 mg PO HS PRN PRN Reason: Insomnia Stop: 07/30/17 20:26 General: demented HEENT: NC/AT, anicteric sclerae, throat clear Neck: Supple, No JVD, No thyromegaly, +2 carotid pulse wo bruit, No LAD Lungs: CTAB Cardiovascular: RRR, Normal S1, Normal S2, without murmur Abdomen: soft, non-tender, non-distended Extremities: clear Neurological: no change - Procedures Procedures: Procedures Procedure Code Date GROUP PSYCHOTHERAPY 74872 07/16/15 GROUP PSYCHOTHERAPY GZHZZZZ 07/16/15 INDIVID PSYCHOTHERAP NEC 94.39 09/06/13 OTHER GROUP THERAPY 94.44 05/03/14 RECREATIONAL THERAPY 93.81 08/25/12 Internal Medicine Assmt/Plan - Assessment Assessment: 1.DM. 2.HTN. 3.3DEMENTEA. 4.DJD - Plan Plan: CONTINUE ON CURRENT MEDICATION AND DIET.
--- NOTE | 2017-06-03 02:38 | Progress Notes ---
DATE: 06/02/2017 Case was discussed with staff of the patient, reviewed records. The patient continues to be internally preoccupied. However, when I questioned, he reported that the voices are fading away. He denies any intent to harm himself or anyone. He denies having any command hallucination. He is less overwhelmed as compared to how he was when he first came. He is compliant with the medication with no side effects, no sedation, no nausea, no extrapyramidal symptoms. We will continue with the patient in group therapy, milieu therapy, adjust medication as needed. JOB# [id number]
[2017-06-03] MEDS: INSULIN ASPART SLIDING SCALE 100 UNITS/ML UNIT SUBQ SCH (06:21)
[2017-06-03] MEDS: Albuterol/Ipratropium Neb 3 ML AERS HHN SCH ×3 (08:00→23:14)
[2017-06-03] MEDS: Aspirin 81mg Chewable Tab PO SCH (08:48)
[2017-06-03] MEDS: Multivitamin Tab PO SCH (08:49)
--- NOTE | 2017-06-04 03:15 | Progress Notes ---
DATE: 06/03/2017 Case was discussed with staff of the patient, reviewed records. The patient has been telling the staff, he wants to be , but yet trying to do a CPR on himself, so very much contradicting himself, very poor insight. Unable to make safe plan for self-care, internally preoccupied. He is sleeping better, eating better. He has been compliant with the medication with no side effects. He reports the voices are not as prominent. He is still acting inappropriately. He is on Seroquel now 200 mg twice a day, increasing the dose a little bit more to make his 225 mg twice a day and so far no side effects with the medication, no sedation, no nausea, no extrapyramidal symptoms. We will continue to work with the patient in group therapy, milieu therapy, adjust medication as needed. JOB# [id number]
[2017-06-04] MEDS: INSULIN ASPART SLIDING SCALE 100 UNITS/ML UNIT SUBQ SCH (06:01)
[2017-06-04] MEDS: Albuterol/Ipratropium Neb 3 ML AERS HHN SCH ×3 (07:24→23:28)
[2017-06-04] MEDS: Multivitamin Tab PO SCH (08:51)
[2017-06-04] MEDS: Aspirin 81mg Chewable Tab PO SCH (08:51)
--- NOTE | 2017-06-04 10:01 | Progress Notes ---
DATE: 06/04/2017 HISTORY OF PRESENT ILLNESS: The patient was seen, chart reviewed, discussed with staff. The patient is currently in the hospital confused, disoriented, mumbling, not safe for a lower level of care, the patient is being cared for by Dr. Peguero, history of agitation and psychosis. Dr. Peguero has been seeing the patient over the past few days, noting that he remains internally preoccupied, still overwhelmed at times, is not answering any questions appropriately today. ASSESSMENT: The patient remains disoriented, mumbling, I cannot understand them, internally preoccupied, seems to be talking to himself. PLAN: We will continue to monitor. Given the ongoing severity of his symptoms, the patient is not safe for a lower level of care. Medications were reviewed, recent dose adjustment by Dr. Peguero. [facility]# [id number]
--- NOTE | 2017-06-04 17:24 | General Progress Note ---
Subjective - Review of Systems Service Date: 06/04/17 Subjective: resting comfortably in bed cooperative no distress Objective - Results Recent Labs: Laboratory Last Values POC Glucose 103 MG/DL (70 - 105) 06/04/17 05:59 - Physical Exam Vitals and I&O: Vital Signs Temp 97.8 F 06/04/17 14:00 Pulse 91 06/04/17 16:38 Resp 16 06/04/17 14:36 BP 108/57 06/04/17 16:38 Pulse Ox 94 06/04/17 14:36 Intake & Output 06/03/17 06/04/17 06/04/17 18:59 06:59 18:59 Intake Total 1200 120 Balance 1200 120 Weight (lbs) 59.058 kg Intake: Oral 1200 120 Other: # Voids 3 3 # Bowel Movements 1 Active Medications: Current Medications Acetaminophen (Tylenol) 650 mg PO Q4HR PRN PRN Reason: Mild Pain / Temp above 100 Stop: 07/30/17 20:26 Al Hydrox/Mg Hydrox/Simethicone (Maalox) 30 ml PO Q4HR PRN PRN Reason: GI DISTRESS Stop: 07/30/17 20:26 Albuterol/Ipratropium (Duoneb Neb) 3 ml HHN Q8HRT [facility] Stop: 07/30/17 22:59 Last Admin: 06/04/17 14:33 Dose: 3 ml Aspirin (Aspirin Chewable) 81 mg PO DAILY [facility] Stop: 07/31/17 08:59 Last Admin: 06/04/17 08:51 Dose: 81 mg Docusate Sodium (Colace) 100 mg PO BID [facility] Stop: 07/31/17 08:59 Last Admin: 06/04/17 16:38 Dose: 100 mg Insulin Aspart (Novolog Insulin Sliding Scale) 0 units SUBQ 0630 JOEL PRN Reason: Protocol Stop: 07/31/17 06:29 Last Admin: 06/04/17 06:01 Dose: Not Given Lorazepam (Ativan) 0.5 mg PO Q4HR PRN; Protocol PRN Reason: Anxiety Stop: 06/30/17 20:26 Last Admin: 06/01/17 01:20 Dose: 0.5 mg Magnesium Hydroxide (Milk Of Magnesia) 30 ml PO HS PRN PRN Reason: Constipation Metoprolol Tartrate (Lopressor) 50 mg PO BID [facility] Stop: 07/31/17 08:59 Last Admin: 06/04/17 16:38 Dose: Not Given Mirtazapine (Remeron) 7.5 mg PO HS JOEL PRN Reason: Protocol Stop: 07/30/17 20:59 Last Admin: 06/03/17 20:12 Dose: 7.5 mg Multivitamins/Vitamin C (Theragran) 1 tab PO DAILY JOEL Stop: 07/31/17 08:59 Last Admin: 06/04/17 08:51 Dose: 1 tab Quetiapine Fumarate 200 mg/ (Quetiapine Fumarate 25 mg) 225 mg PO BID JOEL Stop: 08/02/17 16:59 Last Admin: 06/04/17 16:38 Dose: 225 mg Simvastatin (Zocor) 20 mg PO HS JOEL PRN Reason: Protocol Stop: 07/30/17 20:59 Last Admin: 06/03/17 20:12 Dose: 20 mg Tramadol HCl (Ultram) 50 mg PO Q8HR PRN PRN Reason: Pain (Moderate) Stop: 07/31/17 19:27 Last Admin: 06/02/17 16:08 Dose: 50 mg Zolpidem Tartrate (Ambien) 5 mg PO HS PRN PRN Reason: Insomnia Stop: 07/30/17 20:26 General: Alert Neck: Supple Cardiovascular: Regular rate, Normal S1 Lungs: Clear to auscultation Abdomen: Bowel sounds, Soft - Procedures Procedures: Procedures Procedure Code Date GROUP PSYCHOTHERAPY 04923 07/16/15 GROUP PSYCHOTHERAPY GZHZZZZ 07/16/15 INDIVID PSYCHOTHERAP NEC 94.39 09/06/13 OTHER GROUP THERAPY 94.44 05/03/14 RECREATIONAL THERAPY 93.81 08/25/12 Assessment/Plan - Problem List Patient Problems: All Active Problems Anemia (Active) D64.9 Arthritis (Active) M19.90 CVA - cerebrovascular accident due to cerebral artery occlusion (Active) I63.50 Chronic obstructive lung disease (Active) J44.9 Degenerative joint disease of ankle AND/OR foot (Active) M19.079 Diabetes mellitus (Active) E11.9 Weakness of limb (Active) M62.81 Agitation (Acute) R45.1 Hypertension (Acute) I10 INCREASED HALLUCINATION (Acute 05/03/14) Mental health problem (Acute) F48.9 Schizo affective schizophrenia (Acute) F25.0 - Assessment Assessment: 1.DM. 2.HTN. 3.DEMENTIA. 4.DJD - Plan Plan: cont current treatment Nutritional Asmnt/Malnutr-PDOC - Dietary Evaluation Malnutrition Findings (Please click <Entered> for more info): Nutritional Asmnt/Malnutrition Start: 06/03/17 12: 18 Text: Status: Complete Freq: Document 06/03/17 12:18 GSUN (Rec: 06/03/17 12:30 GSUN [email or web address]) Nutritional Asmnt/Malnutrition Patient General Information Nutritional Screening Moderate Risk Screening Diagnosis Chronic paranoid schizophrenia with acute exacerbation Pertinent Medical Hx/Surgical Hx DM, HTN, DJD, dementia, chronic back pain Subjective Information 67 year old male from SNF. Pt appeared anxious and delusional. Avg PO intake 38% of past 6 meals, not meeting nutritional needs. Pt is able to self feed, admits feeling hungry, however refuses to eat , stating "I can't eat, I am sacrificing myself... waiting for a miracle" Auto Design Checker explained to pt several times of importance of nutrition, pt repeatedly responded with above statement. Write was able to obtain pt's food preference for milk and yogurt . No muscle/fat wasting noted. Current Diet Order/ Nutrition Support [facility] soft ground. Pertinent Medications Colace, Novolog, MOM, Remeron, Theragran Pertinent Labs PCO glucose 99-123H since adm Nutritional Hx/Data Height 1.6 m Height (Calculated Centimeters) 160.0 Current Weight (lbs) 59.058 kg Weight (Calculated Kilograms) 59.1 Weight (Calculated Grams) 42619.7 [place] Body Weight 124 Weight Status Approriate GI Symptoms Cultural/Ethnic/Alevism Belief Likes milk and yogurt Skin Integrity/Comment: Mansoor 17. Skin intact. Current %PO Poor (25-49%) Estimated Nutritional Goals BEE in Kcals: Using Current wt Calories/Kcals/Kg CBW 130.2lb/59.2kg Kcals Calculated 1480-1776kcal (25-30kcal/kg) Protein: Using Current wt Protein Calculated 59g (1g/kg) Fluid: ml 1480-1776ml (1ml/kcal) Nutritional Problem 2. Problem Problem Altered nutrition related laboratory values related to Etiology DM aeb Signs/Symptoms: H&P, on Novolog, elevated POC glucose 1. Problem Problem Inadequate oral food beverage intake related to Etiology cognition, personal believes aeb Signs/Symptoms: pt stated "I can't eat, I am sacrificing myself... waiting for a miracle" Intervention/Recommendation Comments 1. Continue with current diet order to promote PO intake. Avg PO intake is inadequate. Pt believes "I can't eat, I am sacrificing myself... waiting for a miracle." Nursing staff to provide supervision and encouragement with meals. 2. Recommend healthshake and yogurt with every meal. 3. Monitor weight due to poor PO itnake. 4. Monitor glucose levels. Recommend [id number] if PO intake improves to meet >75% of estimated nutritional needs . Expected Outcomes/Goals Expected Outcomes/Goals 1. PO intake to meet at least 75% of estimated nutritional needs.
[2017-06-05] MEDS: INSULIN ASPART SLIDING SCALE 100 UNITS/ML UNIT SUBQ SCH (06:10)
[2017-06-05] MEDS: Albuterol/Ipratropium Neb 3 ML AERS HHN SCH ×3 (06:54→23:04)
[2017-06-05] MEDS: Aspirin 81mg Chewable Tab PO SCH (08:22)
[2017-06-05] MEDS: Multivitamin Tab PO SCH (08:23)
--- NOTE | 2017-06-05 09:05 | Progress Notes ---
DATE: 06/05/2017 SUBJECTIVE: The patient seen, chart reviewed, discussed with staff. The patient hearing voices, stating things like "I am scared," believes that he is "cripple," responding to internal stimuli, delusional, crying in the middle of the hallway, not responding to any of my questions. Staff concerned. ASSESSMENT: The patient remains psychotic, not sleeping, delusional, bizarre behaviors, believing that he is "cripple" for example, not safe for a lower level of care due to the severity of his ongoing psychotic behaviors. PLAN: We will continue to monitor. The patient is on fairly high dose already of Seroquel. We will try to also add medications to help the patient sleep at night. He is currently on Remeron 7.5 mg at bedtime, we will increase his dosage to 50 mg to see if this helps with the sleep and mood symptoms as well. The patient may need ____switch_ to a different antipsychotic like Haldol or Risperdal. JOB# [id number] FABIOLA
[2017-06-06] MEDS: Albuterol/Ipratropium Neb 3 ML AERS HHN SCH ×2 (06:39→14:35)
[2017-06-06] MEDS: INSULIN ASPART SLIDING SCALE 100 UNITS/ML UNIT SUBQ SCH (07:09)
[2017-06-06] MEDS: Multivitamin Tab PO SCH (09:09)
[2017-06-06] MEDS: Aspirin 81mg Chewable Tab PO SCH (09:09)
--- NOTE | 2017-06-06 14:20 | Progress Notes ---
DATE: 06/06/[address] Peguero. SUBJECTIVE: Overnight nursing staff reporting the patient presents very disorganized, very hyper-hindu, responding very heavily when ____ his room, crying and disorganized. Today on [id number] evaluation, the patient observed responding to internal stimuli, hearing voices, very guarded, minimizing in regards to the voices. MENTAL STATUS EXAMINATION: Disorganized, hearing voices, responding heavily. ASSESSMENT AND PLAN: The patient is a 67-year-old male who continues to be very psychotic, disorganized, hyper-hindu. We will continue with the current medication regimen, which includes 225 mg p.o. b.i.d. of the Seroquel and mirtazapine 15 mg ____ active psychotic symptoms as he observed to be responding heavily to internal stimuli. We will continue with the current medication regimen as he is still reaching steady state. [facility]# [id number]
--- NOTE | 2017-06-06 17:13 | General Progress Note ---
Subjective - Review of Systems Service Date: 06/06/17 Subjective: resting comfortably in bed cooperative no distress Objective - Results Recent Labs: Laboratory Last Values POC Glucose 107 MG/DL (70 - 105) H 06/06/17 06:32 - Physical Exam Vitals and I&O: Vital Signs Temp 98.4 F 06/06/17 14:00 Pulse 90 06/06/17 16:30 Resp 14 06/06/17 14:39 BP 91/53 06/06/17 16:30 Pulse Ox 95 06/06/17 14:39 Intake & Output 06/05/17 06/06/17 06/06/17 18:59 06:59 18:59 Intake Total 800 300 Balance 800 300 Intake: Oral 800 300 Other: # Voids 4 2 # Bowel Movements 0 0 Active Medications: Current Medications Acetaminophen (Tylenol) 650 mg PO Q4HR PRN PRN Reason: Mild Pain / Temp above 100 Stop: 07/30/17 20:26 Al Hydrox/Mg Hydrox/Simethicone (Maalox) 30 ml PO Q4HR PRN PRN Reason: GI DISTRESS Stop: 07/30/17 20:26 Albuterol/Ipratropium (Duoneb Neb) 3 ml HHN Q8HRT JOEL Stop: 07/30/17 22:59 Last Admin: 06/06/17 14:35 Dose: 3 ml Aspirin (Aspirin Chewable) 81 mg PO DAILY [facility] Stop: 07/31/17 08:59 Last Admin: 06/06/17 09:09 Dose: 81 mg Docusate Sodium (Colace) 100 mg PO BID [facility] Stop: 07/31/17 08:59 Last Admin: 06/06/17 16:30 Dose: 100 mg Insulin Aspart (Novolog Insulin Sliding Scale) 0 units SUBQ 0630 JOEL PRN Reason: Protocol Stop: 07/31/17 06:29 Last Admin: 06/06/17 07:09 Dose: Not Given Lorazepam (Ativan) 0.5 mg PO Q4HR PRN; Protocol PRN Reason: Anxiety Stop: 06/30/17 20:26 Last Admin: 06/06/17 10:37 Dose: 0.5 mg Magnesium Hydroxide (Milk Of Magnesia) 30 ml PO HS PRN PRN Reason: Constipation Metoprolol Tartrate (Lopressor) 50 mg PO BID JOEL Stop: 07/31/17 08:59 Last Admin: 06/06/17 16:30 Dose: Not Given Mirtazapine (Remeron) 15 mg PO HS JOEL PRN Reason: Protocol Stop: 08/04/17 06:21 Last Admin: 06/05/17 21:06 Dose: 15 mg Multivitamins/Vitamin C (Theragran) 1 tab PO DAILY [facility] Stop: 07/31/17 08:59 Last Admin: 06/06/17 09:09 Dose: 1 tab Quetiapine Fumarate 200 mg/ (Quetiapine Fumarate 25 mg) 225 mg PO BID [facility] Stop: 08/02/17 16:59 Last Admin: 06/06/17 09:10 Dose: 225 mg Simvastatin (Zocor) 20 mg PO HS JOEL PRN Reason: Protocol Stop: 07/30/17 20:59 Last Admin: 06/05/17 21:03 Dose: 20 mg Tramadol HCl (Ultram) 50 mg PO Q8HR PRN PRN Reason: Pain (Moderate) Stop: 07/31/17 19:27 Last Admin: 06/02/17 16:08 Dose: 50 mg Zolpidem Tartrate (Ambien) 5 mg PO HS PRN PRN Reason: Insomnia Stop: 07/30/17 20:26 General: Alert Neck: Supple Cardiovascular: Regular rate, Normal S1 Lungs: Clear to auscultation Abdomen: Bowel sounds, Soft - Procedures Procedures: Procedures Procedure Code Date GROUP PSYCHOTHERAPY 30311 07/16/15 GROUP PSYCHOTHERAPY GZHZZZZ 07/16/15 INDIVID PSYCHOTHERAP NEC 94.39 09/06/13 OTHER GROUP THERAPY 94.44 05/03/14 RECREATIONAL THERAPY 93.81 08/25/12 Assessment/Plan - Problem List Patient Problems: All Active Problems Anemia (Active) D64.9 Arthritis (Active) M19.90 CVA - cerebrovascular accident due to cerebral artery occlusion (Active) I63.50 Chronic obstructive lung disease (Active) J44.9 Degenerative joint disease of ankle AND/OR foot (Active) M19.079 Diabetes mellitus (Active) E11.9 Weakness of limb (Active) M62.81 Agitation (Acute) R45.1 Hypertension (Acute) I10 INCREASED HALLUCINATION (Acute 05/03/14) Mental health problem (Acute) F48.9 Schizo affective schizophrenia (Acute) F25.0 - Assessment Assessment: 1.DM. 2.HTN. 3.DEMENTIA. 4.DJD - Plan Plan: cont current treatment neb treatment changed to PRN Nutritional Asmnt/Malnutr-PDOC - Dietary Evaluation Malnutrition Findings (Please click <Entered> for more info): Nutritional Asmnt/Malnutrition Start: 06/03/17 12: 18 Text: Status: Complete Freq: Document 06/03/17 12:18 GSUN (Rec: 06/03/17 12:30 GSUN [email or web address]) Nutritional Asmnt/Malnutrition Patient General Information Nutritional Screening Moderate Risk Screening Diagnosis Chronic paranoid schizophrenia with acute exacerbation Pertinent Medical Hx/Surgical Hx DM, HTN, DJD, dementia, chronic back pain Subjective Information 67 year old male from SNF. Pt appeared anxious and delusional. Avg PO intake 38% of past 6 meals, not meeting nutritional needs. Pt is able to self feed, admits feeling hungry, however refuses to eat , stating "I can't eat, I am sacrificing myself... waiting for a miracle" Bellows Assembler explained to pt several times of importance of nutrition, pt repeatedly responded with above statement. Write was able to obtain pt's food preference for milk and yogurt . No muscle/fat wasting noted. Current Diet Order/ Nutrition Support [facility] soft ground. Pertinent Medications Colace, Novolog, MOM, Remeron, Theragran Pertinent Labs PCO glucose 99-123H since adm Nutritional Hx/Data Height 1.6 m Height (Calculated Centimeters) 160.0 Current Weight (lbs) 59.058 kg Weight (Calculated Kilograms) 59.1 Weight (Calculated Grams) 44298.7 [place] Body Weight 124 Weight Status Approriate GI Symptoms Cultural/Ethnic/Alevism Belief Likes milk and yogurt Skin Integrity/Comment: Mansoor 17. Skin intact. Current %PO Poor (25-49%) Estimated Nutritional Goals BEE in Kcals: Using Current wt Calories/Kcals/Kg CBW 130.2lb/59.2kg Kcals Calculated 1480-1776kcal (25-30kcal/kg) Protein: Using Current wt Protein Calculated 59g (1g/kg) Fluid: ml 1480-1776ml (1ml/kcal) Nutritional Problem 2. Problem Problem Altered nutrition related laboratory values related to Etiology DM aeb Signs/Symptoms: H&P, on Novolog, elevated POC glucose 1. Problem Problem Inadequate oral food beverage intake related to Etiology cognition, personal believes aeb Signs/Symptoms: pt stated "I can't eat, I am sacrificing myself... waiting for a miracle" Intervention/Recommendation Comments 1. Continue with current diet order to promote PO intake. Avg PO intake is inadequate. Pt believes "I can't eat, I am sacrificing myself... waiting for a miracle." Nursing staff to provide supervision and encouragement with meals. 2. Recommend healthshake and yogurt with every meal. 3. Monitor weight due to poor PO itnake. 4. Monitor glucose levels. Recommend [id number] if PO intake improves to meet >75% of estimated nutritional needs . Expected Outcomes/Goals Expected Outcomes/Goals 1. PO intake to meet at least 75% of estimated nutritional needs.
[2017-06-06] MEDS ORDERED: Albuterol/Ipratropium Neb 3 ML AERS HHN PRN (17:35)
--- NOTE | 2017-06-06 23:14 | Admit Criteria Form ---
Admit Criteria Forms - Admit Criteria Diagnosis: PSYCHIATRIC DISORDERS (Place 'X' for any and all applicable criteria): Ongoing inpatient care may be needed for 1 or more of the following(1)(2)(3)(4)( 6)(7)(8): [ ]I. Danger to self or others not manageable at lower level of care. [ ]II. Grave disability (eg, inability to perform self care necessary at lower level of care) [ ]III. Agitation or inappropriate behavior interfering with care for primary condition (eg, attempting to discontinue lines or drains prematurely, unable to cooperate with respiratory care) [X ]IV. Severe disability or disorder indicated by ALL of the following: [X ]a) Severe behavioral health disorder-related symptoms or condition indicated by 1 or more of the following: [ ]i) Severe problem with cognition, memory, judgment, or impulse control [ X]ii) Severe clinical manifestations (eg, hallucinations , delusions, other acute psychotic symptoms, adolfo, extreme agitation or anxiety) [X ]b) Patient management at lower level of care is not feasible until acute intervention or modification is initiated. Extended stay beyond goal length of stay for the primary condition may be needed until ALLof the following are present(1)(2)(3)(4)(7)25)(23): [ ]a) Danger to self or others is absent or manageable at lower level of care [ ]b) Behavior crisis management, including physical or chemical restraints, is required and is not available at a lower level of care. [ ]c) Behavioral symptoms (e.g., agitation, somnolence, inappropriate behavior) are present, and are not manageable at a lower level of care. [ ]d) Patient cannot understand follow-up treatment and crisis plan. [ ]e) Provider and supports are sufficiently available at lower level of care. [ ]f) Patient can participate (e.g., verify absence of plan for harm) and is in needed of monitoring. The original [facility] content created by [facility] has been revised. The portions of the content which have been revised are identified through the use of italic text or in bold, and [facility] has neither reviewed nor approved the modified material. All other unmodified content is copyright [facility]. Please see references footnoted in the original [facility] edition 2017 Admit Criteria Met?: Yes
[2017-06-07] MEDS: INSULIN ASPART SLIDING SCALE 100 UNITS/ML UNIT SUBQ SCH (06:29)
[2017-06-07] MEDS: Multivitamin Tab PO SCH (09:04)
[2017-06-07] MEDS: Aspirin 81mg Chewable Tab PO SCH (09:04)
--- NOTE | 2017-06-07 20:09 | Internal Medicine Prog Note ---
Internal Medicine Subjective - Subjective Service Date: 06/07/17 Patient seen and examined:: with staff Patient is:: awake, verbal, in bed, confused Per staff patient has:: no adverse event Internal Medicine Objective - Results Recent Labs: Laboratory Last Values POC Glucose 101 MG/DL (70 - 105) 06/07/17 06:09 - Physical Exam Vitals and I&O: Vital Signs Temp 97.4 F 06/07/17 14:00 Pulse 100 06/07/17 17:10 Resp 20 06/07/17 14:00 BP 119/73 06/07/17 17:10 Pulse Ox 96 06/07/17 14:00 Intake & Output 06/07/17 06/07/17 06/08/17 06:59 18:59 06:59 Intake Total 120 1200 Balance 120 1200 Intake: Oral 120 1200 Other: # Voids 3 3 # Bowel Movements 0 1 Active Medications: Current Medications Acetaminophen (Tylenol) 650 mg PO Q4HR PRN PRN Reason: Mild Pain / Temp above 100 Stop: 07/30/17 20:26 Last Admin: 06/06/17 18:32 Dose: 650 mg Al Hydrox/Mg Hydrox/Simethicone (Maalox) 30 ml PO Q4HR PRN PRN Reason: GI DISTRESS Stop: 07/30/17 20:26 Albuterol/Ipratropium (Duoneb Neb) 3 ml HHN Q8HRT PRN PRN Reason: Shortness of Breath Stop: 08/05/17 17:34 Aspirin (Aspirin Chewable) 81 mg PO DAILY [facility] Stop: 07/31/17 08:59 Last Admin: 06/07/17 09:04 Dose: 81 mg Docusate Sodium (Colace) 100 mg PO BID [facility] Stop: 07/31/17 08:59 Last Admin: 06/07/17 17:14 Dose: 100 mg Insulin Aspart (Novolog Insulin Sliding Scale) 0 units SUBQ 0630 JOEL PRN Reason: Protocol Stop: 07/31/17 06:29 Last Admin: 06/07/17 06:29 Dose: Not Given Lorazepam (Ativan) 0.5 mg PO Q4HR PRN; Protocol PRN Reason: Anxiety Stop: 06/30/17 20:26 Last Admin: 06/06/17 20:28 Dose: 0.5 mg Magnesium Hydroxide (Milk Of Magnesia) 30 ml PO HS PRN PRN Reason: Constipation Metoprolol Tartrate (Lopressor) 50 mg PO BID [facility] Stop: 07/31/17 08:59 Last Admin: 06/07/17 17:10 Dose: Not Given Mirtazapine (Remeron) 15 mg PO HS JOEL PRN Reason: Protocol Stop: 08/04/17 06:21 Last Admin: 06/06/17 20:28 Dose: 15 mg Multivitamins/Vitamin C (Theragran) 1 tab PO DAILY JOEL Stop: 07/31/17 08:59 Last Admin: 06/07/17 09:04 Dose: 1 tab Quetiapine Fumarate 200 mg/ (Quetiapine Fumarate 50 mg) 250 mg PO BID JOEL Stop: 08/06/17 16:59 Last Admin: 06/07/17 17:13 Dose: 250 mg Simvastatin (Zocor) 20 mg PO HS JOEL PRN Reason: Protocol Stop: 07/30/17 20:59 Last Admin: 06/06/17 20:28 Dose: 20 mg Tramadol HCl (Ultram) 50 mg PO Q8HR PRN PRN Reason: Pain (Moderate) Stop: 07/31/17 19:27 Last Admin: 06/02/17 16:08 Dose: 50 mg Zolpidem Tartrate (Ambien) 5 mg PO HS PRN PRN Reason: Insomnia Stop: 07/30/17 20:26 General: demented HEENT: NC/AT, anicteric sclerae, throat clear Neck: Supple, No JVD, No thyromegaly, +2 carotid pulse wo bruit, No LAD Lungs: CTAB Cardiovascular: RRR, Normal S1, Normal S2, without murmur Abdomen: soft, non-tender, non-distended Extremities: clear Neurological: no change - Procedures Procedures: Procedures Procedure Code Date GROUP PSYCHOTHERAPY 00979 07/16/15 GROUP PSYCHOTHERAPY GZHZZZZ 07/16/15 INDIVID PSYCHOTHERAP NEC 94.39 09/06/13 OTHER GROUP THERAPY 94.44 05/03/14 RECREATIONAL THERAPY 93.81 08/25/12 Internal Medicine Assmt/Plan - Assessment Assessment: 1.DM. 2.HTN. 3.DEMENTEA. 4.DJD - Plan Plan: CONTINUE ON CURRENT MEDICATION AND DIET. Nutritional Asmnt/Malnutr-PDOC - Dietary Evaluation Malnutrition Findings (Please click <Entered> for more info): Nutritional Asmnt/Malnutrition Start: 06/03/17 12: 18 Text: Status: Complete Freq: Document 06/03/17 12:18 ROSALIASARA (Rec: 06/03/17 12:30 [email or web address]) Nutritional Asmnt/Malnutrition Patient General Information Nutritional Screening Moderate Risk Screening Diagnosis Chronic paranoid schizophrenia with acute exacerbation Pertinent Medical Hx/Surgical Hx DM, HTN, DJD, dementia, chronic back pain Subjective Information 67 year old male from SNF. Pt appeared anxious and delusional. Avg PO intake 38% of past 6 meals, not meeting nutritional needs. Pt is able to self feed, admits feeling hungry, however refuses to eat , stating "I can't eat, I am sacrificing myself... waiting for a miracle" Prop Drawer explained to pt several times of importance of nutrition, pt repeatedly responded with above statement. Write was able to obtain pt's food preference for milk and yogurt . No muscle/fat wasting noted. Current Diet Order/ Nutrition Support [facility] soft ground. Pertinent Medications Colace, Novolog, MOM, Remeron, Theragran Pertinent Labs PCO glucose 99-123H since adm Nutritional Hx/Data Height 1.6 m Height (Calculated Centimeters) 160.0 Current Weight (lbs) 59.058 kg Weight (Calculated Kilograms) 59.1 Weight (Calculated Grams) 36748.7 [place] Body Weight 124 Weight Status Approriate GI Symptoms Cultural/Ethnic/Mu-Ism Belief Likes milk and yogurt Skin Integrity/Comment: Mansoor 17. Skin intact. Current %PO Poor (25-49%) Estimated Nutritional Goals BEE in Kcals: Using Current wt Calories/Kcals/Kg CBW 130.2lb/59.2kg Kcals Calculated 1480-1776kcal (25-30kcal/kg) Protein: Using Current wt Protein Calculated 59g (1g/kg) Fluid: ml 1480-1776ml (1ml/kcal) Nutritional Problem 2. Problem Problem Altered nutrition related laboratory values related to Etiology DM aeb Signs/Symptoms: H&P, on Novolog, elevated POC glucose 1. Problem Problem Inadequate oral food beverage intake related to Etiology cognition, personal believes aeb Signs/Symptoms: pt stated "I can't eat, I am sacrificing myself... waiting for a miracle" Intervention/Recommendation Comments 1. Continue with current diet order to promote PO intake. Avg PO intake is inadequate. Pt believes "I can't eat, I am sacrificing myself... waiting for a miracle." Nursing staff to provide supervision and encouragement with meals. 2. Recommend healthshake and yogurt with every meal. 3. Monitor weight due to poor PO itnake. 4. Monitor glucose levels. Recommend [id number] if PO intake improves to meet >75% of estimated nutritional needs . Expected Outcomes/Goals Expected Outcomes/Goals 1. PO intake to meet at least 75% of estimated nutritional needs.
--- NOTE | 2017-06-08 00:32 | Progress Notes ---
DATE: Case was discussed with staff of the patient, reviewed records. The patient continues to be psychotic, internally preoccupied. Continues to have poor insight, unable to make safe plan for self-care, responding to internal stimuli, unpredictable, impulsive, and needing redirection. He is compliant with the medication with no side effects. No sedation, no nausea, no extrapyramidal symptoms. I will be increasing his Seroquel dosage to 50 mg twice a day and so far no side effects, no sedation, no nausea, no extrapyramidal symptoms. We will continue to work with the patient in group therapy and milieu therapy, adjust the medication as needed. JOB# [id number]
[2017-06-08] MEDS: INSULIN ASPART SLIDING SCALE 100 UNITS/ML UNIT SUBQ SCH (06:01)
[2017-06-08] MEDS: Aspirin 81mg Chewable Tab PO SCH (08:14)
[2017-06-08] MEDS: Multivitamin Tab PO SCH (08:14)
--- NOTE | 2017-06-08 19:21 | Internal Medicine Prog Note ---
Internal Medicine Subjective - Subjective Service Date: 06/08/17 Patient seen and examined:: without staff Patient is:: awake, verbal, in bed, confused Per staff patient has:: no adverse event Internal Medicine Objective - Results Recent Labs: Laboratory Last Values POC Glucose 101 MG/DL (70 - 105) 06/07/17 06:09 - Physical Exam Vitals and I&O: Vital Signs Temp 98.0 F 06/08/17 14:00 Pulse 101 06/08/17 19:13 Resp 20 06/08/17 19:13 BP 106/64 06/08/17 16:20 Pulse Ox 99 06/08/17 19:13 Intake & Output 06/08/17 06/08/17 06/09/17 06:59 18:59 06:59 Intake Total 120 700 Balance 120 700 Intake: Oral 120 700 Other: # Voids 3 3 # Bowel Movements 0 1 Stool Characteristics Soft Formed Active Medications: Current Medications Acetaminophen (Tylenol) 650 mg PO Q4HR PRN PRN Reason: Mild Pain / Temp above 100 Stop: 07/30/17 20:26 Last Admin: 06/08/17 15:16 Dose: 650 mg Al Hydrox/Mg Hydrox/Simethicone (Maalox) 30 ml PO Q4HR PRN PRN Reason: GI DISTRESS Stop: 07/30/17 20:26 Albuterol/Ipratropium (Duoneb Neb) 3 ml HHN Q8HRT PRN PRN Reason: Shortness of Breath Stop: 08/05/17 17:34 Last Admin: 06/08/17 19:13 Dose: 3 ml Aspirin (Aspirin Chewable) 81 mg PO DAILY [facility] Stop: 07/31/17 08:59 Last Admin: 06/08/17 08:14 Dose: 81 mg Docusate Sodium (Colace) 100 mg PO BID [facility] Stop: 07/31/17 08:59 Last Admin: 06/08/17 16:20 Dose: 100 mg Insulin Aspart (Novolog Insulin Sliding Scale) 0 units SUBQ 0630 JOEL PRN Reason: Protocol Stop: 07/31/17 06:29 Last Admin: 06/08/17 06:01 Dose: Not Given Lorazepam (Ativan) 0.5 mg PO Q4HR PRN; Protocol PRN Reason: Anxiety Stop: 06/30/17 20:26 Last Admin: 06/08/17 10:36 Dose: 0.5 mg Metoprolol Tartrate (Lopressor) 50 mg PO BID [facility] Stop: 07/31/17 08:59 Last Admin: 06/08/17 16:20 Dose: 50 mg Mirtazapine (Remeron) 15 mg PO HS JOEL PRN Reason: Protocol Stop: 08/04/17 06:21 Last Admin: 06/07/17 20:16 Dose: 15 mg Multivitamins/Vitamin C (Theragran) 1 tab PO DAILY [facility] Stop: 07/31/17 08:59 Last Admin: 06/08/17 08:14 Dose: 1 tab Quetiapine Fumarate 200 mg/ (Quetiapine Fumarate 50 mg) 250 mg PO BID [facility] Stop: 08/06/17 16:59 Last Admin: 06/08/17 16:20 Dose: 250 mg Simvastatin (Zocor) 20 mg PO HS JOEL PRN Reason: Protocol Stop: 07/30/17 20:59 Last Admin: 06/07/17 20:16 Dose: 20 mg Tramadol HCl (Ultram) 50 mg PO Q8HR PRN PRN Reason: Pain (Moderate) Stop: 07/31/17 19:27 Last Admin: 06/02/17 16:08 Dose: 50 mg Zolpidem Tartrate (Ambien) 5 mg PO HS PRN PRN Reason: Insomnia Stop: 07/30/17 20:26 General: demented HEENT: NC/AT, anicteric sclerae, throat clear Neck: Supple, No JVD, No thyromegaly, +2 carotid pulse wo bruit, No LAD Lungs: CTAB Cardiovascular: RRR, Normal S1, Normal S2, without murmur Abdomen: soft, non-tender, non-distended Extremities: clear Neurological: no change - Procedures Procedures: Procedures Procedure Code Date GROUP PSYCHOTHERAPY 14933 07/16/15 GROUP PSYCHOTHERAPY GZHZZZZ 07/16/15 INDIVID PSYCHOTHERAP NEC 94.39 09/06/13 OTHER GROUP THERAPY 94.44 05/03/14 RECREATIONAL THERAPY 93.81 08/25/12 Internal Medicine Assmt/Plan - Assessment Assessment: 1.DM. 2.HTN. 3.DEMENTEA. 4.DJD - Plan Plan: CONTINUE ON CURRENT MEDICATION AND DIET. Nutritional Asmnt/Malnutr-PDOC - Dietary Evaluation Malnutrition Findings (Please click <Entered> for more info): Nutritional Asmnt/Malnutrition Start: 06/03/17 12: 18 Text: Status: Complete Freq: Document 06/03/17 12:18 ROSALIASARA (Rec: 06/03/17 12:30 [email or web address]) Nutritional Asmnt/Malnutrition Patient General Information Nutritional Screening Moderate Risk Screening Diagnosis Chronic paranoid schizophrenia with acute exacerbation Pertinent Medical Hx/Surgical Hx DM, HTN, DJD, dementia, chronic back pain Subjective Information 67 year old male from SNF. Pt appeared anxious and delusional. Avg PO intake 38% of past 6 meals, not meeting nutritional needs. Pt is able to self feed, admits feeling hungry, however refuses to eat , stating "I can't eat, I am sacrificing myself... waiting for a miracle" Claims Coordinator explained to pt several times of importance of nutrition, pt repeatedly responded with above statement. Write was able to obtain pt's food preference for milk and yogurt . No muscle/fat wasting noted. Current Diet Order/ Nutrition Support [facility] soft ground. Pertinent Medications Colace, Novolog, MOM, Remeron, Theragran Pertinent Labs PCO glucose 99-123H since adm Nutritional Hx/Data Height 1.6 m Height (Calculated Centimeters) 160.0 Current Weight (lbs) 59.058 kg Weight (Calculated Kilograms) 59.1 Weight (Calculated Grams) 98970.7 [place] Body Weight 124 Weight Status Approriate GI Symptoms Cultural/Ethnic/Yazidism Belief Likes milk and yogurt Skin Integrity/Comment: Mansoor 17. Skin intact. Current %PO Poor (25-49%) Estimated Nutritional Goals BEE in Kcals: Using Current wt Calories/Kcals/Kg CBW 130.2lb/59.2kg Kcals Calculated 1480-1776kcal (25-30kcal/kg) Protein: Using Current wt Protein Calculated 59g (1g/kg) Fluid: ml 1480-1776ml (1ml/kcal) Nutritional Problem 2. Problem Problem Altered nutrition related laboratory values related to Etiology DM aeb Signs/Symptoms: H&P, on Novolog, elevated POC glucose 1. Problem Problem Inadequate oral food beverage intake related to Etiology cognition, personal believes aeb Signs/Symptoms: pt stated "I can't eat, I am sacrificing myself... waiting for a miracle" Intervention/Recommendation Comments 1. Continue with current diet order to promote PO intake. Avg PO intake is inadequate. Pt believes "I can't eat, I am sacrificing myself... waiting for a miracle." Nursing staff to provide supervision and encouragement with meals. 2. Recommend healthshake and yogurt with every meal. 3. Monitor weight due to poor PO itnake. 4. Monitor glucose levels. Recommend [id number] if PO intake improves to meet >75% of estimated nutritional needs . Expected Outcomes/Goals Expected Outcomes/Goals 1. PO intake to meet at least 75% of estimated nutritional needs.
--- NOTE | 2017-06-08 22:33 | Progress Notes ---
DATE: 06/08/2017 Case discussed with staff and the patient, reviewed records. The patient continues to be delusional, believes he had a heart attack last night. He is trying to do CPR for himself, pushing on his chest with both hands. He is still psychotic, unpredictable and impulsive. I did increase his Seroquel dose yesterday. No side effects with the medication, no sedation, no nausea. No extrapyramidal symptoms. We will continue to work with the patient in group therapy, milieu therapy, adjust medication as needed. JOB# [id number]
[2017-06-09] MEDS: INSULIN ASPART SLIDING SCALE 100 UNITS/ML UNIT SUBQ SCH (06:56)
[2017-06-09] MEDS: Aspirin 81mg Chewable Tab PO SCH (08:19)
[2017-06-09] MEDS: Multivitamin Tab PO SCH (08:19)
[2017-06-09] MEDS: QUETIAPINE FUMARATE PO SCH (16:23)
--- NOTE | 2017-06-09 18:07 | Internal Medicine Prog Note ---
Internal Medicine Subjective - Subjective Service Date: 06/09/17 Patient seen and examined:: with staff Patient is:: awake, verbal, in bed, confused Per staff patient has:: no adverse event Internal Medicine Objective - Results Recent Labs: Laboratory Last Values POC Glucose 108 MG/DL (70 - 105) H 06/09/17 06:02 - Physical Exam Vitals and I&O: Vital Signs Temp 97.9 F 06/09/17 14:00 Pulse 90 06/09/17 16:24 Resp 18 06/09/17 14:00 BP 97/63 06/09/17 16:24 Pulse Ox 97 06/09/17 14:00 Intake & Output 06/08/17 06/09/17 06/09/17 18:59 06:59 18:59 Intake Total 700 120 Balance 700 120 Intake: Oral 700 120 Other: # Voids 3 3 # Bowel Movements 1 Stool Characteristics Soft Formed Active Medications: Current Medications Acetaminophen (Tylenol) 650 mg PO Q4HR PRN PRN Reason: Mild Pain / Temp above 100 Stop: 07/30/17 20:26 Last Admin: 06/08/17 15:16 Dose: 650 mg Al Hydrox/Mg Hydrox/Simethicone (Maalox) 30 ml PO Q4HR PRN PRN Reason: GI DISTRESS Stop: 07/30/17 20:26 Albuterol/Ipratropium (Duoneb Neb) 3 ml HHN Q8HRT PRN PRN Reason: Shortness of Breath Stop: 08/05/17 17:34 Last Admin: 06/08/17 19:13 Dose: 3 ml Aspirin (Aspirin Chewable) 81 mg PO DAILY [facility] Stop: 07/31/17 08:59 Last Admin: 06/09/17 08:19 Dose: 81 mg Docusate Sodium (Colace) 100 mg PO BID [facility] Stop: 07/31/17 08:59 Last Admin: 06/09/17 16:22 Dose: 100 mg Insulin Aspart (Novolog Insulin Sliding Scale) 0 units SUBQ 0630 JOEL PRN Reason: Protocol Stop: 07/31/17 06:29 Last Admin: 06/09/17 06:56 Dose: Not Given Lorazepam (Ativan) 0.5 mg PO Q4HR PRN; Protocol PRN Reason: Anxiety Stop: 06/30/17 20:26 Last Admin: 06/08/17 20:34 Dose: 0.5 mg Metoprolol Tartrate (Lopressor) 50 mg PO BID [facility] Stop: 07/31/17 08:59 Last Admin: 06/09/17 16:24 Dose: Not Given Mirtazapine (Remeron) 15 mg PO HS JOEL PRN Reason: Protocol Stop: 08/04/17 06:21 Last Admin: 06/08/17 20:34 Dose: 15 mg Multivitamins/Vitamin C (Theragran) 1 tab PO DAILY [facility] Stop: 07/31/17 08:59 Last Admin: 06/09/17 08:19 Dose: 1 tab Quetiapine Fumarate 200 mg/ (Quetiapine Fumarate 75 mg) 275 mg PO BID [facility] Stop: 08/08/17 16:59 Last Admin: 06/09/17 16:23 Dose: 275 mg Simvastatin (Zocor) 20 mg PO HS JOEL PRN Reason: Protocol Stop: 07/30/17 20:59 Last Admin: 06/08/17 20:34 Dose: 20 mg Tramadol HCl (Ultram) 50 mg PO Q8HR PRN PRN Reason: Pain (Moderate) Stop: 07/31/17 19:27 Last Admin: 06/09/17 09:45 Dose: 50 mg Zolpidem Tartrate (Ambien) 5 mg PO HS PRN PRN Reason: Insomnia Stop: 07/30/17 20:26 General: demented HEENT: NC/AT, anicteric sclerae, throat clear Neck: Supple, No JVD, No thyromegaly, +2 carotid pulse wo bruit, No LAD Lungs: CTAB Cardiovascular: RRR, Normal S1, Normal S2, without murmur Abdomen: soft, non-tender, non-distended Extremities: clear Neurological: no change - Procedures Procedures: Procedures Procedure Code Date GROUP PSYCHOTHERAPY 52785 07/16/15 GROUP PSYCHOTHERAPY GZHZZZZ 07/16/15 INDIVID PSYCHOTHERAP NEC 94.39 09/06/13 OTHER GROUP THERAPY 94.44 05/03/14 RECREATIONAL THERAPY 93.81 08/25/12 Internal Medicine Assmt/Plan - Assessment Assessment: 1.DM. 2.HTN. 3.DEMENTEA. 4.DJD - Plan Plan: CONTINUE ON CURRENT MEDICATION AND DIET. Nutritional Asmnt/Malnutr-PDOC - Dietary Evaluation Malnutrition Findings (Please click <Entered> for more info): Nutritional Asmnt/Malnutrition Start: 06/03/17 12: 18 Text: Status: Complete Freq: Document 06/03/17 12:18 ROSALIASARA (Rec: 06/03/17 12:30 GSSARA [email or web address]) Nutritional Asmnt/Malnutrition Patient General Information Nutritional Screening Moderate Risk Screening Diagnosis Chronic paranoid schizophrenia with acute exacerbation Pertinent Medical Hx/Surgical Hx DM, HTN, DJD, dementia, chronic back pain Subjective Information 67 year old male from SNF. Pt appeared anxious and delusional. Avg PO intake 38% of past 6 meals, not meeting nutritional needs. Pt is able to self feed, admits feeling hungry, however refuses to eat , stating "I can't eat, I am sacrificing myself... waiting for a miracle" Hourly Associate explained to pt several times of importance of nutrition, pt repeatedly responded with above statement. Write was able to obtain pt's food preference for milk and yogurt . No muscle/fat wasting noted. Current Diet Order/ Nutrition Support [facility] soft ground. Pertinent Medications Colace, Novolog, MOM, Remeron, Theragran Pertinent Labs PCO glucose 99-123H since adm Nutritional Hx/Data Height 1.6 m Height (Calculated Centimeters) 160.0 Current Weight (lbs) 59.058 kg Weight (Calculated Kilograms) 59.1 Weight (Calculated Grams) 80478.7 [place] Body Weight 124 Weight Status Approriate GI Symptoms Cultural/Ethnic/Synagogue Belief Likes milk and yogurt Skin Integrity/Comment: Mansoor 17. Skin intact. Current %PO Poor (25-49%) Estimated Nutritional Goals BEE in Kcals: Using Current wt Calories/Kcals/Kg CBW 130.2lb/59.2kg Kcals Calculated 1480-1776kcal (25-30kcal/kg) Protein: Using Current wt Protein Calculated 59g (1g/kg) Fluid: ml 1480-1776ml (1ml/kcal) Nutritional Problem 2. Problem Problem Altered nutrition related laboratory values related to Etiology DM aeb Signs/Symptoms: H&P, on Novolog, elevated POC glucose 1. Problem Problem Inadequate oral food beverage intake related to Etiology cognition, personal believes aeb Signs/Symptoms: pt stated "I can't eat, I am sacrificing myself... waiting for a miracle" Intervention/Recommendation Comments 1. Continue with current diet order to promote PO intake. Avg PO intake is inadequate. Pt believes "I can't eat, I am sacrificing myself... waiting for a miracle." Nursing staff to provide supervision and encouragement with meals. 2. Recommend healthshake and yogurt with every meal. 3. Monitor weight due to poor PO itnake. 4. Monitor glucose levels. Recommend [id number] if PO intake improves to meet >75% of estimated nutritional needs . Expected Outcomes/Goals Expected Outcomes/Goals 1. PO intake to meet at least 75% of estimated nutritional needs.
[2017-06-10] MEDS: INSULIN ASPART SLIDING SCALE 100 UNITS/ML UNIT SUBQ SCH (06:25)
--- NOTE | 2017-06-10 08:07 | Progress Notes ---
DATE: 06/09/2017 Case was discussed with staff of the patient, reviewed records. The patient continues to be internally preoccupied. Continues to unable to make safe plan for self-care. Sleeping well, eating well. No side effects with the medication, no sedation, no nausea, no extrapyramidal symptoms. Still believe he had a heart attack, delusional, paranoid and trying to have CPR for himself. I will be increasing his Seroquel dose to 275 mg twice a day and so far no side effects, no sedation, no nausea, no extrapyramidal symptoms and we will continue to work with the patient in group therapy, milieu therapy, adjust the medication as needed. [facility]# [id number]
[2017-06-10] MEDS: QUETIAPINE FUMARATE PO SCH ×2 (08:19→16:36)
[2017-06-10] MEDS: Multivitamin Tab PO SCH (08:20)
[2017-06-10] MEDS: Aspirin 81mg Chewable Tab PO SCH (08:20)
--- NOTE | 2017-06-10 22:57 | Internal Medicine Prog Note ---
Internal Medicine Subjective - Subjective Service Date: 06/10/17 Patient seen and examined:: without staff Patient is:: awake, verbal, in bed, confused Per staff patient has:: no adverse event Internal Medicine Objective - Results Recent Labs: Laboratory Last Values POC Glucose 110 MG/DL (70-105) H 06/10/17 06:45 - Physical Exam Vitals and I&O: Vital Signs Temp 97.6 F 06/10/17 15:34 Pulse 93 06/10/17 16:38 Resp 18 06/10/17 15:34 BP 103/62 06/10/17 16:38 Pulse Ox 96 06/10/17 15:34 Intake & Output 06/10/17 06/10/17 06/11/17 06:59 18:59 06:59 Intake Total 120 900 Balance 120 900 Weight (lbs) 57.516 kg Intake: Oral 120 900 Other: # Voids 3 4 # Bowel Movements 1 Active Medications: Current Medications Acetaminophen (Tylenol) 650 mg PO Q4HR PRN PRN Reason: Mild Pain / Temp above 100 Stop: 07/30/17 20:26 Last Admin: 06/08/17 15:16 Dose: 650 mg Al Hydrox/Mg Hydrox/Simethicone (Maalox) 30 ml PO Q4HR PRN PRN Reason: GI DISTRESS Stop: 07/30/17 20:26 Albuterol/Ipratropium (Duoneb Neb) 3 ml HHN Q8HRT PRN PRN Reason: Shortness of Breath Stop: 08/05/17 17:34 Last Admin: 06/08/17 19:13 Dose: 3 ml Aspirin (Aspirin Chewable) 81 mg PO DAILY [facility] Stop: 07/31/17 08:59 Last Admin: 06/10/17 08:20 Dose: 81 mg Docusate Sodium (Colace) 100 mg PO BID [facility] Stop: 07/31/17 08:59 Last Admin: 06/10/17 16:38 Dose: 100 mg Insulin Aspart (Novolog Insulin Sliding Scale) 0 units SUBQ 0630 JOEL PRN Reason: Protocol Stop: 07/31/17 06:29 Last Admin: 06/10/17 06:25 Dose: Not Given Lorazepam (Ativan) 0.5 mg PO Q4HR PRN; Protocol PRN Reason: Anxiety Stop: 06/30/17 20:26 Last Admin: 06/08/17 20:34 Dose: 0.5 mg Metoprolol Tartrate (Lopressor) 50 mg PO BID [facility] Stop: 07/31/17 08:59 Last Admin: 06/10/17 16:38 Dose: 50 mg Mirtazapine (Remeron) 15 mg PO HS JOEL PRN Reason: Protocol Stop: 08/04/17 06:21 Last Admin: 06/10/17 20:35 Dose: 15 mg Multivitamins/Vitamin C (Theragran) 1 tab PO DAILY [facility] Stop: 07/31/17 08:59 Last Admin: 06/10/17 08:20 Dose: 1 tab Quetiapine Fumarate 200 mg/ (Quetiapine Fumarate 75 mg) 275 mg PO BID [facility] Stop: 08/08/17 16:59 Last Admin: 06/10/17 16:36 Dose: 275 mg Simvastatin (Zocor) 20 mg PO HS JOEL PRN Reason: Protocol Stop: 07/30/17 20:59 Last Admin: 06/10/17 20:35 Dose: 20 mg Tramadol HCl (Ultram) 50 mg PO Q8HR PRN PRN Reason: Pain (Moderate) Stop: 07/31/17 19:27 Last Admin: 06/09/17 09:45 Dose: 50 mg Zolpidem Tartrate (Ambien) 5 mg PO HS PRN PRN Reason: Insomnia Stop: 07/30/17 20:26 Last Admin: 06/10/17 20:35 Dose: 5 mg General: demented HEENT: NC/AT, anicteric sclerae, throat clear Neck: Supple, No JVD, No thyromegaly, +2 carotid pulse wo bruit, No LAD Lungs: CTAB Cardiovascular: RRR, Normal S1, Normal S2, without murmur Abdomen: soft, non-tender, non-distended Extremities: clear Neurological: no change - Procedures Procedures: Procedures Procedure Code Date GROUP PSYCHOTHERAPY 37521 07/16/15 GROUP PSYCHOTHERAPY GZHZZZZ 07/16/15 INDIVID PSYCHOTHERAP NEC 94.39 09/06/13 OTHER GROUP THERAPY 94.44 05/03/14 RECREATIONAL THERAPY 93.81 08/25/12 Internal Medicine Assmt/Plan - Assessment Assessment: 1.DM. 2.HTN. 3.DEMENTEA. 4.DJD - Plan Plan: CONTINUE ON CURRENT MEDICATION AND DIET. Nutritional Asmnt/Malnutr-PDOC - Dietary Evaluation Malnutrition Findings (Please click <Entered> for more info): Nutritional Asmnt/Malnutrition Start: 06/03/17 12: 18 Text: Status: Complete Freq: Document 06/03/17 12:18 GSSARA (Rec: 06/03/17 12:30 [email or web address]) Nutritional Asmnt/Malnutrition Patient General Information Nutritional Screening Moderate Risk Screening Diagnosis Chronic paranoid schizophrenia with acute exacerbation Pertinent Medical Hx/Surgical Hx DM, HTN, DJD, dementia, chronic back pain Subjective Information 67 year old male from SNF. Pt appeared anxious and delusional. Avg PO intake 38% of past 6 meals, not meeting nutritional needs. Pt is able to self feed, admits feeling hungry, however refuses to eat , stating "I can't eat, I am sacrificing myself... waiting for a miracle" Radial Router Operator explained to pt several times of importance of nutrition, pt repeatedly responded with above statement. Write was able to obtain pt's food preference for milk and yogurt . No muscle/fat wasting noted. Current Diet Order/ Nutrition Support [facility] soft ground. Pertinent Medications Colace, Novolog, MOM, Remeron, Theragran Pertinent Labs PCO glucose 99-123H since adm Nutritional Hx/Data Height 1.6 m Height (Calculated Centimeters) 160.0 Current Weight (lbs) 59.058 kg Weight (Calculated Kilograms) 59.1 Weight (Calculated Grams) 08887.7 [place] Body Weight 124 Weight Status Approriate GI Symptoms Cultural/Ethnic/Tenriism Belief Likes milk and yogurt Skin Integrity/Comment: Mansoor 17. Skin intact. Current %PO Poor (25-49%) Estimated Nutritional Goals BEE in Kcals: Using Current wt Calories/Kcals/Kg CBW 130.2lb/59.2kg Kcals Calculated 1480-1776kcal (25-30kcal/kg) Protein: Using Current wt Protein Calculated 59g (1g/kg) Fluid: ml 1480-1776ml (1ml/kcal) Nutritional Problem 2. Problem Problem Altered nutrition related laboratory values related to Etiology DM aeb Signs/Symptoms: H&P, on Novolog, elevated POC glucose 1. Problem Problem Inadequate oral food beverage intake related to Etiology cognition, personal believes aeb Signs/Symptoms: pt stated "I can't eat, I am sacrificing myself... waiting for a miracle" Intervention/Recommendation Comments 1. Continue with current diet order to promote PO intake. Avg PO intake is inadequate. Pt believes "I can't eat, I am sacrificing myself... waiting for a miracle." Nursing staff to provide supervision and encouragement with meals. 2. Recommend healthshake and yogurt with every meal. 3. Monitor weight due to poor PO itnake. 4. Monitor glucose levels. Recommend [id number] if PO intake improves to meet >75% of estimated nutritional needs . Expected Outcomes/Goals Expected Outcomes/Goals 1. PO intake to meet at least 75% of estimated nutritional needs.
[2017-06-11] MEDS: INSULIN ASPART SLIDING SCALE 100 UNITS/ML UNIT SUBQ SCH (06:01)
[2017-06-11] MEDS: Multivitamin Tab PO SCH (08:06)
[2017-06-11] MEDS: Aspirin 81mg Chewable Tab PO SCH (08:06)
[2017-06-11] MEDS: QUETIAPINE FUMARATE PO SCH ×2 (08:07→16:29)
[2017-06-11 12:43] LABS: % BASOPHILS 0.9 % (0.0-2.0); % EOSINOPHILS 4.4 % (0.0-5.0); % MONOCYTES 9.9 % (2.0-10.0); % NEUTROPHILS 59.8 % (40.0-80.0); HEMATOCRIT 39.8 % (39.0-49.0); HEMOGLOBIN 13.1 gm/dL (12.6-17.4); MEAN CELL VOLUME 84.3 fl (80-99); MEAN CORPUSCULAR HEMOGLOBIN 27.7 pg (27.0-31.0); MEAN CORPUSCULAR HGB CONC 32.8 pg (28.0-36.0); MEAN PLATELET VOLUME 7.7 fl; NEUTROPHILE ABSOLUTE 3.8 Th/cmm (1.8-8.0); RED BLOOD COUNT 4.73 Mil/cmm (3.80-5.80); RED CELL DISTRIBUTION WIDTH 13.3 % (11.5-20.0); WHITE BLOOD COUNT 6.4 Th/cmm (4.8-10.8)
[2017-06-11 12:44] LABS: PLATELET COUNT 438 Th/cmm (150-400)
--- NOTE | 2017-06-11 20:24 | Internal Medicine Prog Note ---
Internal Medicine Subjective - Subjective Service Date: 06/11/17 Patient seen and examined:: without staff Patient is:: awake, verbal, in bed, confused Per staff patient has:: no adverse event Internal Medicine Objective - Results Result Diagrams: 06/11/17 12:30 Recent Labs: Laboratory Last Values WBC 6.4 Th/cmm (4.8-10.8) 06/11/17 12:30 RBC 4.73 Mil/cmm (3.80-5.80) 06/11/17 12:30 Hgb 13.1 gm/dL (12.6-17.4) 06/11/17 12:30 Hct 39.8 % (39.0-49.0) 06/11/17 12:30 MCV 84.3 fl (80-99) 06/11/17 12:30 MCH 27.7 pg (27.0-31.0) 06/11/17 12:30 MCHC Differential 32.8 pg (28.0-36.0) 06/11/17 12:30 RDW 13.3 % (11.5-20.0) 06/11/17 12:30 Plt Count 438 Th/cmm (150-400) H D 06/11/17 12:30 MPV 7.7 fl 06/11/17 12:30 Neutrophils % 59.8 % (40.0-80.0) 06/11/17 12:30 Lymphocytes % 25.0 % (20.0-50.0) 06/11/17 12:30 Monocytes % 9.9 % (2.0-10.0) 06/11/17 12:30 Eosinophils % 4.4 % (0.0-5.0) 06/11/17 12:30 Basophils % 0.9 % (0.0-2.0) 06/11/17 12:30 POC Glucose 106 MG/DL (70 - 105) H 06/11/17 05:25 - Physical Exam Vitals and I&O: Vital Signs Temp 97.6 F 06/11/17 18:16 Pulse 98 06/11/17 19:09 Resp 18 06/11/17 19:09 BP 84/53 06/11/17 18:16 Pulse Ox 98 06/11/17 19:09 Intake & Output 06/11/17 06/11/17 06/12/17 06:59 18:59 06:59 Intake Total 900 Balance 900 Intake: Oral 900 Other: # Voids 3 3 # Bowel Movements 0 1 Active Medications: Current Medications Acetaminophen (Tylenol) 650 mg PO Q4HR PRN PRN Reason: Mild Pain / Temp above 100 Stop: 07/30/17 20:26 Last Admin: 06/08/17 15:16 Dose: 650 mg Al Hydrox/Mg Hydrox/Simethicone (Maalox) 30 ml PO Q4HR PRN PRN Reason: GI DISTRESS Stop: 07/30/17 20:26 Albuterol/Ipratropium (Duoneb Neb) 3 ml HHN Q8HRT PRN PRN Reason: Shortness of Breath Stop: 08/05/17 17:34 Last Admin: 06/08/17 19:13 Dose: 3 ml Aspirin (Aspirin Chewable) 81 mg PO DAILY [facility] Stop: 07/31/17 08:59 Last Admin: 06/11/17 08:06 Dose: 81 mg Docusate Sodium (Colace) 100 mg PO BID [facility] Stop: 07/31/17 08:59 Last Admin: 06/11/17 16:28 Dose: 100 mg Insulin Aspart (Novolog Insulin Sliding Scale) 0 units SUBQ 0630 JOEL PRN Reason: Protocol Stop: 07/31/17 06:29 Last Admin: 06/11/17 06:01 Dose: Not Given Lorazepam (Ativan) 0.5 mg PO Q4HR PRN; Protocol PRN Reason: Anxiety Stop: 06/30/17 20:26 Last Admin: 06/11/17 12:58 Dose: 0.5 mg Metoprolol Tartrate (Lopressor) 50 mg PO BID [facility] Stop: 07/31/17 08:59 Last Admin: 06/11/17 16:30 Dose: Not Given Mirtazapine (Remeron) 15 mg PO HS JOEL PRN Reason: Protocol Stop: 08/04/17 06:21 Last Admin: 06/10/17 20:35 Dose: 15 mg Multivitamins/Vitamin C (Theragran) 1 tab PO DAILY JOEL Stop: 07/31/17 08:59 Last Admin: 06/11/17 08:06 Dose: 1 tab Quetiapine Fumarate 200 mg/ (Quetiapine Fumarate 75 mg) 275 mg PO BID [facility] Stop: 08/08/17 16:59 Last Admin: 06/11/17 16:29 Dose: 275 mg Simvastatin (Zocor) 20 mg PO HS JOEL PRN Reason: Protocol Stop: 07/30/17 20:59 Last Admin: 06/10/17 20:35 Dose: 20 mg Tramadol HCl (Ultram) 50 mg PO Q8HR PRN PRN Reason: Pain (Moderate) Stop: 07/31/17 19:27 Last Admin: 06/11/17 09:37 Dose: 50 mg Zolpidem Tartrate (Ambien) 5 mg PO HS PRN PRN Reason: Insomnia Stop: 07/30/17 20:26 Last Admin: 06/10/17 20:35 Dose: 5 mg General: demented HEENT: NC/AT, anicteric sclerae, throat clear Neck: Supple, No JVD, No thyromegaly, +2 carotid pulse wo bruit, No LAD Lungs: CTAB Cardiovascular: RRR, Normal S1, Normal S2, without murmur Abdomen: soft, non-tender, non-distended Extremities: clear Neurological: no change - Procedures Procedures: Procedures Procedure Code Date GROUP PSYCHOTHERAPY 92127 07/16/15 GROUP PSYCHOTHERAPY GZHZZZZ 07/16/15 INDIVID PSYCHOTHERAP NEC 94.39 09/06/13 OTHER GROUP THERAPY 94.44 05/03/14 RECREATIONAL THERAPY 93.81 08/25/12 Internal Medicine Assmt/Plan - Assessment Assessment: 1.DM. 2.HTN. 3.DEMENTEA. 4.DJD - Plan Plan: CONTINUE ON CURRENT MEDICATION AND DIET. Nutritional Asmnt/Malnutr-PDOC - Dietary Evaluation Malnutrition Findings (Please click <Entered> for more info): Nutritional Asmnt/Malnutrition Start: 06/03/17 12: 18 Text: Status: Complete Freq: Document 06/03/17 12:18 GSUN (Rec: 06/03/17 12:30 [email or web address]) Nutritional Asmnt/Malnutrition Patient General Information Nutritional Screening Moderate Risk Screening Diagnosis Chronic paranoid schizophrenia with acute exacerbation Pertinent Medical Hx/Surgical Hx DM, HTN, DJD, dementia, chronic back pain Subjective Information 67 year old male from SNF. Pt appeared anxious and delusional. Avg PO intake 38% of past 6 meals, not meeting nutritional needs. Pt is able to self feed, admits feeling hungry, however refuses to eat , stating "I can't eat, I am sacrificing myself... waiting for a miracle" Glazier Supervisor explained to pt several times of importance of nutrition, pt repeatedly responded with above statement. Write was able to obtain pt's food preference for milk and yogurt . No muscle/fat wasting noted. Current Diet Order/ Nutrition Support [facility] soft ground. Pertinent Medications Colace, Novolog, MOM, Remeron, Theragran Pertinent Labs PCO glucose 99-123H since adm Nutritional Hx/Data Height 1.6 m Height (Calculated Centimeters) 160.0 Current Weight (lbs) 59.058 kg Weight (Calculated Kilograms) 59.1 Weight (Calculated Grams) 14057.7 [place] Body Weight 124 Weight Status Approriate GI Symptoms Cultural/Ethnic/Scientologist Belief Likes milk and yogurt Skin Integrity/Comment: Mansoor 17. Skin intact. Current %PO Poor (25-49%) Estimated Nutritional Goals BEE in Kcals: Using Current wt Calories/Kcals/Kg CBW 130.2lb/59.2kg Kcals Calculated 1480-1776kcal (25-30kcal/kg) Protein: Using Current wt Protein Calculated 59g (1g/kg) Fluid: ml 1480-1776ml (1ml/kcal) Nutritional Problem 2. Problem Problem Altered nutrition related laboratory values related to Etiology DM aeb Signs/Symptoms: H&P, on Novolog, elevated POC glucose 1. Problem Problem Inadequate oral food beverage intake related to Etiology cognition, personal believes aeb Signs/Symptoms: pt stated "I can't eat, I am sacrificing myself... waiting for a miracle" Intervention/Recommendation Comments 1. Continue with current diet order to promote PO intake. Avg PO intake is inadequate. Pt believes "I can't eat, I am sacrificing myself... waiting for a miracle." Nursing staff to provide supervision and encouragement with meals. 2. Recommend healthshake and yogurt with every meal. 3. Monitor weight due to poor PO itnake. 4. Monitor glucose levels. Recommend [id number] if PO intake improves to meet >75% of estimated nutritional needs . Expected Outcomes/Goals Expected Outcomes/Goals 1. PO intake to meet at least 75% of estimated nutritional needs.
--- NOTE | 2017-06-11 20:59 | Progress Notes ---
DATE: 06/10/2017 Case was discussed with staff of patient, reviewed records. The patient is more quiet now. He was a little sleepy today, probably from increase in Seroquel, but he is not as delusional. He is sleeping better, eating better. He reported the voices are fading away. He denies any current intent to harm himself or anybody. Some sedation as a side effect. However, I will keep him on that and he is already on fall precaution and we will continue to work with the patient in group therapy, milieu therapy, adjust medication as needed. JOB# [id number]
[2017-06-12] MEDS: INSULIN ASPART SLIDING SCALE 100 UNITS/ML UNIT SUBQ SCH (06:08)
[2017-06-12] MEDS: Multivitamin Tab PO SCH (08:44)
[2017-06-12] MEDS: Aspirin 81mg Chewable Tab PO SCH (08:44)
[2017-06-12] MEDS: QUETIAPINE FUMARATE PO SCH ×2 (08:44→16:15)
--- NOTE | 2017-06-12 21:02 | Progress Notes ---
DATE: 06/11/2017 Case was discussed with staff of the patient, reviewed records. The patient continues to be scared. He is delusional. He is very fearful. He is anxious, paranoid. Does not seem like he is doing well on Seroquel. Last time, he was here, we have to put him on Clozaril, so I will be initiating the Clozaril, start tapering him off Seroquel soon. After, he was on Clozaril and so far no side effects with the medication, no sedation, no nausea, no extrapyramidal symptoms. Discussed side effects of the medication. We will continue to work with the patient in group therapy, milieu therapy, adjust medication as needed. JOB# [id number]
--- NOTE | 2017-06-12 21:39 | Internal Medicine Prog Note ---
Internal Medicine Subjective - Subjective Service Date: 06/12/17 Patient seen and examined:: without staff Patient is:: awake, verbal, in bed, confused Per staff patient has:: no adverse event Internal Medicine Objective - Results Result Diagrams: 06/11/17 12:30 Recent Labs: Laboratory Last Values WBC 6.4 Th/cmm (4.8-10.8) 06/11/17 12:30 RBC 4.73 Mil/cmm (3.80-5.80) 06/11/17 12:30 Hgb 13.1 gm/dL (12.6-17.4) 06/11/17 12:30 Hct 39.8 % (39.0-49.0) 06/11/17 12:30 MCV 84.3 fl (80-99) 06/11/17 12:30 MCH 27.7 pg (27.0-31.0) 06/11/17 12:30 MCHC Differential 32.8 pg (28.0-36.0) 06/11/17 12:30 RDW 13.3 % (11.5-20.0) 06/11/17 12:30 Plt Count 438 Th/cmm (150-400) H D 06/11/17 12:30 MPV 7.7 fl 06/11/17 12:30 Neutrophils % 59.8 % (40.0-80.0) 06/11/17 12:30 Lymphocytes % 25.0 % (20.0-50.0) 06/11/17 12:30 Monocytes % 9.9 % (2.0-10.0) 06/11/17 12:30 Eosinophils % 4.4 % (0.0-5.0) 06/11/17 12:30 Basophils % 0.9 % (0.0-2.0) 06/11/17 12:30 POC Glucose 113 MG/DL (70 - 105) H 06/12/17 06:01 - Physical Exam Vitals and I&O: Vital Signs Temp 98 F 06/12/17 17:35 Pulse 117 06/12/17 20:51 Resp 19 06/12/17 20:51 BP 104/66 06/12/17 17:35 Pulse Ox 95 06/12/17 20:51 Intake & Output 06/12/17 06/12/17 06/13/17 06:59 18:59 06:59 Intake Total 120 900 Balance 120 900 Intake: Oral 120 900 Other: # Voids 3 4 # Bowel Movements 2 Active Medications: Current Medications Acetaminophen (Tylenol) 650 mg PO Q4HR PRN PRN Reason: Mild Pain / Temp above 100 Stop: 07/30/17 20:26 Last Admin: 06/08/17 15:16 Dose: 650 mg Al Hydrox/Mg Hydrox/Simethicone (Maalox) 30 ml PO Q4HR PRN PRN Reason: GI DISTRESS Stop: 07/30/17 20:26 Albuterol/Ipratropium (Duoneb Neb) 3 ml HHN Q8HRT PRN PRN Reason: Shortness of Breath Stop: 08/05/17 17:34 Last Admin: 06/08/17 19:13 Dose: 3 ml Aspirin (Aspirin Chewable) 81 mg PO DAILY [facility] Stop: 07/31/17 08:59 Last Admin: 06/12/17 08:44 Dose: 81 mg Clozapine (Clozaril) 25 mg PO DAILY JOEL PRN Reason: Protocol Stop: 08/12/17 08:59 Docusate Sodium (Colace) 100 mg PO BID JOEL Stop: 07/31/17 08:59 Last Admin: 06/12/17 16:19 Dose: 100 mg Insulin Aspart (Novolog Insulin Sliding Scale) 0 units SUBQ 0630 JOEL PRN Reason: Protocol Stop: 07/31/17 06:29 Last Admin: 06/12/17 06:08 Dose: Not Given Lorazepam (Ativan) 0.5 mg PO Q4HR PRN; Protocol PRN Reason: Anxiety Stop: 06/30/17 20:26 Last Admin: 06/11/17 12:58 Dose: 0.5 mg Metoprolol Tartrate (Lopressor) 50 mg PO BID JOEL Stop: 07/31/17 08:59 Last Admin: 06/12/17 16:20 Dose: Not Given Mirtazapine (Remeron) 15 mg PO HS JOEL PRN Reason: Protocol Stop: 08/04/17 06:21 Last Admin: 06/12/17 20:29 Dose: 15 mg Miscellaneous (Clinical Monitoring) 1 ea MC PRN PRN PRN Reason: PROTOCOL Stop: 08/11/17 12:18 Multivitamins/Vitamin C (Theragran) 1 tab PO DAILY JOEL Stop: 07/31/17 08:59 Last Admin: 06/12/17 08:44 Dose: 1 tab Quetiapine Fumarate 200 mg/ (Quetiapine Fumarate 75 mg) 275 mg PO BID JOEL Stop: 08/08/17 16:59 Last Admin: 06/12/17 16:15 Dose: 275 mg Simvastatin (Zocor) 20 mg PO HS JOEL PRN Reason: Protocol Stop: 07/30/17 20:59 Last Admin: 06/12/17 20:28 Dose: 20 mg Tramadol HCl (Ultram) 50 mg PO Q8HR PRN PRN Reason: Pain (Moderate) Stop: 07/31/17 19:27 Last Admin: 06/11/17 09:37 Dose: 50 mg Zolpidem Tartrate (Ambien) 5 mg PO HS PRN PRN Reason: Insomnia Stop: 07/30/17 20:26 Last Admin: 06/12/17 20:29 Dose: 5 mg General: demented HEENT: NC/AT, anicteric sclerae, throat clear Neck: Supple, No JVD, No thyromegaly, +2 carotid pulse wo bruit, No LAD Lungs: CTAB Cardiovascular: RRR, Normal S1, Normal S2, without murmur Abdomen: soft, non-tender, non-distended Extremities: clear Neurological: no change - Procedures Procedures: Procedures Procedure Code Date GROUP PSYCHOTHERAPY 32871 07/16/15 GROUP PSYCHOTHERAPY GZHZZZZ 07/16/15 INDIVID PSYCHOTHERAP NEC 94.39 09/06/13 OTHER GROUP THERAPY 94.44 05/03/14 RECREATIONAL THERAPY 93.81 08/25/12 Internal Medicine Assmt/Plan - Assessment Assessment: 1.DM. 2.HTN. 3.DEMENTEA. 4.DJD - Plan Plan: CONTINUE ON CURRENT MEDICATION AND DIET. Nutritional Asmnt/Malnutr-PDOC - Dietary Evaluation Malnutrition Findings (Please click <Entered> for more info): Nutritional Asmnt/Malnutrition Start: 06/03/17 12: 18 Text: Status: Complete Freq: Document 06/03/17 12:18 GSUN (Rec: 06/03/17 12:30 GSUN [email or web address]) Nutritional Asmnt/Malnutrition Patient General Information Nutritional Screening Moderate Risk Screening Diagnosis Chronic paranoid schizophrenia with acute exacerbation Pertinent Medical Hx/Surgical Hx DM, HTN, DJD, dementia, chronic back pain Subjective Information 67 year old male from SNF. Pt appeared anxious and delusional. Avg PO intake 38% of past 6 meals, not meeting nutritional needs. Pt is able to self feed, admits feeling hungry, however refuses to eat , stating "I can't eat, I am sacrificing myself... waiting for a miracle" Tattoo Technician explained to pt several times of importance of nutrition, pt repeatedly responded with above statement. Write was able to obtain pt's food preference for milk and yogurt . No muscle/fat wasting noted. Current Diet Order/ Nutrition Support [facility] soft ground. Pertinent Medications Colace, Novolog, MOM, Remeron, Theragran Pertinent Labs PCO glucose 99-123H since adm Nutritional Hx/Data Height 1.6 m Height (Calculated Centimeters) 160.0 Current Weight (lbs) 59.058 kg Weight (Calculated Kilograms) 59.1 Weight (Calculated Grams) 30214.7 [place] Body Weight 124 Weight Status Approriate GI Symptoms Cultural/Ethnic/Congregation Belief Likes milk and yogurt Skin Integrity/Comment: Mansoor 17. Skin intact. Current %PO Poor (25-49%) Estimated Nutritional Goals BEE in Kcals: Using Current wt Calories/Kcals/Kg CBW 130.2lb/59.2kg Kcals Calculated 1480-1776kcal (25-30kcal/kg) Protein: Using Current wt Protein Calculated 59g (1g/kg) Fluid: ml 1480-1776ml (1ml/kcal) Nutritional Problem 2. Problem Problem Altered nutrition related laboratory values related to Etiology DM aeb Signs/Symptoms: H&P, on Novolog, elevated POC glucose 1. Problem Problem Inadequate oral food beverage intake related to Etiology cognition, personal believes aeb Signs/Symptoms: pt stated "I can't eat, I am sacrificing myself... waiting for a miracle" Intervention/Recommendation Comments 1. Continue with current diet order to promote PO intake. Avg PO intake is inadequate. Pt believes "I can't eat, I am sacrificing myself... waiting for a miracle." Nursing staff to provide supervision and encouragement with meals. 2. Recommend healthshake and yogurt with every meal. 3. Monitor weight due to poor PO itnake. 4. Monitor glucose levels. Recommend [id number] if PO intake improves to meet >75% of estimated nutritional needs . Expected Outcomes/Goals Expected Outcomes/Goals 1. PO intake to meet at least 75% of estimated nutritional needs.
--- NOTE | 2017-06-13 04:53 | Progress Notes ---
DATE: 06/12/2017 Case was discussed with staff of the patient, reviewed records. The patient will be started on Clozaril. We are working on getting him a stat CBC, still delusional, responding to internal stimuli, fearful, sad. No side effects with the medication, no sedation, no nausea, no extrapyramidal symptoms. We will continue to work with the patient in group therapy, milieu therapy, adjust the medication as needed. The patient currently denies that he will harm himself as he is very fearful. JOB# [id number]
[2017-06-13] MEDS: INSULIN ASPART SLIDING SCALE 100 UNITS/ML UNIT SUBQ SCH (06:51)
[2017-06-13] MEDS: Multivitamin Tab PO SCH (09:28)
[2017-06-13] MEDS: QUETIAPINE FUMARATE PO SCH (09:28)
[2017-06-13] MEDS: Aspirin 81mg Chewable Tab PO SCH (09:28)
--- NOTE | 2017-06-14 01:54 | Progress Notes ---
DATE: 06/13/2017 Case was discussed with staff of the patient, reviewed records. The patient continues to be fearful, paranoid and continues to have poor insight. Continues to be unable to make safe plan for self-care. He continues to be delusional. He reports he cannot walk. I would be taking him off Seroquel initiating Risperdal on him and so far, no side effects, no sedation, no nausea, and no extrapyramidal symptoms. We will continue to work with the patient in group therapy, milieu therapy, adjust medication as needed. So, the patient will be started on Risperdal 1 mg twice a day to help with his psychotic symptoms and discussed side effects and will consider the patient in group therapy, milieu therapy, adjust the medication as needed. JOB# [id number]
[2017-06-14] MEDS: INSULIN ASPART SLIDING SCALE 100 UNITS/ML UNIT SUBQ SCH (06:37)
[2017-06-14] MEDS: Aspirin 81mg Chewable Tab PO SCH (08:38)
[2017-06-14] MEDS: Multivitamin Tab PO SCH (08:39)
--- NOTE | 2017-06-14 13:03 | Internal Medicine Prog Note ---
Internal Medicine Subjective - Subjective Service Date: 06/14/17 Patient seen and examined:: without staff Patient is:: awake, verbal, in bed, confused Per staff patient has:: no adverse event Internal Medicine Objective - Results Result Diagrams: 06/11/17 12:30 Recent Labs: Laboratory Last Values WBC 6.4 Th/cmm (4.8-10.8) 06/11/17 12:30 RBC 4.73 Mil/cmm (3.80-5.80) 06/11/17 12:30 Hgb 13.1 gm/dL (12.6-17.4) 06/11/17 12:30 Hct 39.8 % (39.0-49.0) 06/11/17 12:30 MCV 84.3 fl (80-99) 06/11/17 12:30 MCH 27.7 pg (27.0-31.0) 06/11/17 12:30 MCHC Differential 32.8 pg (28.0-36.0) 06/11/17 12:30 RDW 13.3 % (11.5-20.0) 06/11/17 12:30 Plt Count 438 Th/cmm (150-400) H D 06/11/17 12:30 MPV 7.7 fl 06/11/17 12:30 Neutrophils % 59.8 % (40.0-80.0) 06/11/17 12:30 Lymphocytes % 25.0 % (20.0-50.0) 06/11/17 12:30 Monocytes % 9.9 % (2.0-10.0) 06/11/17 12:30 Eosinophils % 4.4 % (0.0-5.0) 06/11/17 12:30 Basophils % 0.9 % (0.0-2.0) 06/11/17 12:30 POC Glucose 120 MG/DL (70 - 105) H 06/14/17 06:34 - Physical Exam Vitals and I&O: Vital Signs Temp 97.9 F 06/14/17 06:05 Pulse 110 06/14/17 08:39 Resp 20 06/14/17 06:05 BP 118/66 06/14/17 08:39 Pulse Ox 95 06/14/17 06:05 Intake & Output 06/13/17 06/14/17 06/14/17 18:59 06:59 18:59 Intake Total 850 360 Balance 850 360 Intake: Oral 850 360 Other: # Voids 4 2 # Bowel Movements 2 0 Active Medications: Current Medications Acetaminophen (Tylenol) 650 mg PO Q4HR PRN PRN Reason: Mild Pain / Temp above 100 Stop: 07/30/17 20:26 Last Admin: 06/08/17 15:16 Dose: 650 mg Al Hydrox/Mg Hydrox/Simethicone (Maalox) 30 ml PO Q4HR PRN PRN Reason: GI DISTRESS Stop: 07/30/17 20:26 Albuterol/Ipratropium (Duoneb Neb) 3 ml HHN Q8HRT PRN PRN Reason: Shortness of Breath Stop: 08/05/17 17:34 Last Admin: 06/08/17 19:13 Dose: 3 ml Aspirin (Aspirin Chewable) 81 mg PO DAILY JOEL Stop: 07/31/17 08:59 Last Admin: 06/14/17 08:38 Dose: 81 mg Clozapine (Clozaril) 50 mg PO DAILY JOEL PRN Reason: Protocol Stop: 08/13/17 12:05 Docusate Sodium (Colace) 100 mg PO BID JOEL Stop: 07/31/17 08:59 Last Admin: 06/14/17 08:39 Dose: 100 mg Insulin Aspart (Novolog Insulin Sliding Scale) 0 units SUBQ 0630 JOEL PRN Reason: Protocol Stop: 07/31/17 06:29 Last Admin: 06/14/17 06:37 Dose: Not Given Lorazepam (Ativan) 0.5 mg PO Q4HR PRN; Protocol PRN Reason: Anxiety Stop: 06/30/17 20:26 Last Admin: 06/13/17 20:43 Dose: 0.5 mg Metoprolol Tartrate (Lopressor) 50 mg PO BID JOEL Stop: 07/31/17 08:59 Last Admin: 06/14/17 08:39 Dose: 50 mg Mirtazapine (Remeron) 15 mg PO HS JOEL PRN Reason: Protocol Stop: 08/04/17 06:21 Last Admin: 06/13/17 20:43 Dose: 15 mg Miscellaneous (Clinical Monitoring) 1 ea MC PRN PRN PRN Reason: PROTOCOL Stop: 08/11/17 12:18 Multivitamins/Vitamin C (Theragran) 1 tab PO DAILY JOEL Stop: 07/31/17 08:59 Last Admin: 06/14/17 08:39 Dose: 1 tab Risperidone (Risperdal) 1 mg PO BID JOEL PRN Reason: Protocol Stop: 08/12/17 16:59 Last Admin: 06/13/17 17:00 Dose: Not Given Simvastatin (Zocor) 20 mg PO HS JOEL PRN Reason: Protocol Stop: 07/30/17 20:59 Last Admin: 06/13/17 20:43 Dose: 20 mg Tramadol HCl (Ultram) 50 mg PO Q8HR PRN PRN Reason: Pain (Moderate) Stop: 07/31/17 19:27 Last Admin: 06/11/17 09:37 Dose: 50 mg Zolpidem Tartrate (Ambien) 5 mg PO HS PRN PRN Reason: Insomnia Stop: 07/30/17 20:26 Last Admin: 06/12/17 20:29 Dose: 5 mg General: demented HEENT: NC/AT, anicteric sclerae, throat clear Neck: Supple, No JVD, No thyromegaly, +2 carotid pulse wo bruit, No LAD Lungs: CTAB Cardiovascular: RRR, Normal S1, Normal S2, without murmur Abdomen: soft, non-tender, non-distended Extremities: clear Neurological: no change - Procedures Procedures: Procedures Procedure Code Date GROUP PSYCHOTHERAPY 62937 07/16/15 GROUP PSYCHOTHERAPY GZHZZZZ 07/16/15 INDIVID PSYCHOTHERAP NEC 94.39 09/06/13 OTHER GROUP THERAPY 94.44 05/03/14 RECREATIONAL THERAPY 93.81 08/25/12 Internal Medicine Assmt/Plan - Assessment Assessment: 1.DM. 2.HTN. 3.DEMENTEA. 4.DJD - Plan Plan: CONTINUE ON CURRENT MEDICATION AND DIET. Nutritional Asmnt/Malnutr-PDOC - Dietary Evaluation Malnutrition Findings (Please click <Entered> for more info): Nutritional Asmnt/Malnutrition Start: 06/03/17 12: 18 Text: Status: Complete Freq: Document 06/03/17 12:18 GSUN (Rec: 06/03/17 12:30 GSUN [email or web address]) Nutritional Asmnt/Malnutrition Patient General Information Nutritional Screening Moderate Risk Screening Diagnosis Chronic paranoid schizophrenia with acute exacerbation Pertinent Medical Hx/Surgical Hx DM, HTN, DJD, dementia, chronic back pain Subjective Information 67 year old male from SNF. Pt appeared anxious and delusional. Avg PO intake 38% of past 6 meals, not meeting nutritional needs. Pt is able to self feed, admits feeling hungry, however refuses to eat , stating "I can't eat, I am sacrificing myself... waiting for a miracle" Surgical Instruments Inspector explained to pt several times of importance of nutrition, pt repeatedly responded with above statement. Write was able to obtain pt's food preference for milk and yogurt . No muscle/fat wasting noted. Current Diet Order/ Nutrition Support [facility] soft ground. Pertinent Medications Colace, Novolog, MOM, Remeron, Theragran Pertinent Labs PCO glucose 99-123H since adm Nutritional Hx/Data Height 1.6 m Height (Calculated Centimeters) 160.0 Current Weight (lbs) 59.058 kg Weight (Calculated Kilograms) 59.1 Weight (Calculated Grams) 38114.7 [place] Body Weight 124 Weight Status Approriate GI Symptoms Cultural/Ethnic/Roman Catholic Belief Likes milk and yogurt Skin Integrity/Comment: Mansoor 17. Skin intact. Current %PO Poor (25-49%) Estimated Nutritional Goals BEE in Kcals: Using Current wt Calories/Kcals/Kg CBW 130.2lb/59.2kg Kcals Calculated 1480-1776kcal (25-30kcal/kg) Protein: Using Current wt Protein Calculated 59g (1g/kg) Fluid: ml 1480-1776ml (1ml/kcal) Nutritional Problem 2. Problem Problem Altered nutrition related laboratory values related to Etiology DM aeb Signs/Symptoms: H&P, on Novolog, elevated POC glucose 1. Problem Problem Inadequate oral food beverage intake related to Etiology cognition, personal believes aeb Signs/Symptoms: pt stated "I can't eat, I am sacrificing myself... waiting for a miracle" Intervention/Recommendation Comments 1. Continue with current diet order to promote PO intake. Avg PO intake is inadequate. Pt believes "I can't eat, I am sacrificing myself... waiting for a miracle." Nursing staff to provide supervision and encouragement with meals. 2. Recommend healthshake and yogurt with every meal. 3. Monitor weight due to poor PO itnake. 4. Monitor glucose levels. Recommend [id number] if PO intake improves to meet >75% of estimated nutritional needs . Expected Outcomes/Goals Expected Outcomes/Goals 1. PO intake to meet at least 75% of estimated nutritional needs.
--- NOTE | 2017-06-15 02:09 | Progress Notes ---
DATE: 06/14/2017 Case was discussed with staff of the patient, reviewed records. The patient continues to be delusional, responding to internal stimuli. He denies having any intent to harm himself or anybody. He is scared of . He is unpredictable, impulsive, needing redirection. He is actually on Clozaril, but they managed to get ____ and I will be increasing it to 50 mg at bedtime to help improve his symptoms as it did help him before and maybe later take him off Risperdal. He is already off the Seroquel and we will continue to work with the patient in group therapy, milieu therapy, adjust the medication as needed. JOB# [id number]
[2017-06-15] MEDS: INSULIN ASPART SLIDING SCALE 100 UNITS/ML UNIT SUBQ SCH (06:45)
[2017-06-15] MEDS: Multivitamin Tab PO SCH (08:14)
[2017-06-15] MEDS: Aspirin 81mg Chewable Tab PO SCH (08:15)
--- NOTE | 2017-06-15 21:16 | Internal Medicine Prog Note ---
Internal Medicine Subjective - Subjective Service Date: 06/15/17 Patient seen and examined:: without staff Patient is:: awake, verbal, in bed, confused Per staff patient has:: no adverse event Internal Medicine Objective - Results Result Diagrams: 06/11/17 12:30 Recent Labs: Laboratory Last Values WBC 6.4 Th/cmm (4.8-10.8) 06/11/17 12:30 RBC 4.73 Mil/cmm (3.80-5.80) 06/11/17 12:30 Hgb 13.1 gm/dL (12.6-17.4) 06/11/17 12:30 Hct 39.8 % (39.0-49.0) 06/11/17 12:30 MCV 84.3 fl (80-99) 06/11/17 12:30 MCH 27.7 pg (27.0-31.0) 06/11/17 12:30 MCHC Differential 32.8 pg (28.0-36.0) 06/11/17 12:30 RDW 13.3 % (11.5-20.0) 06/11/17 12:30 Plt Count 438 Th/cmm (150-400) H D 06/11/17 12:30 MPV 7.7 fl 06/11/17 12:30 Neutrophils % 59.8 % (40.0-80.0) 06/11/17 12:30 Lymphocytes % 25.0 % (20.0-50.0) 06/11/17 12:30 Monocytes % 9.9 % (2.0-10.0) 06/11/17 12:30 Eosinophils % 4.4 % (0.0-5.0) 06/11/17 12:30 Basophils % 0.9 % (0.0-2.0) 06/11/17 12:30 POC Glucose 96 MG/DL (70 - 105) 06/15/17 05:55 - Physical Exam Vitals and I&O: Vital Signs Temp 97.6 F 06/15/17 20:00 Pulse 102 06/15/17 20:00 Resp 20 06/15/17 20:00 BP 117/78 06/15/17 20:00 Pulse Ox 97 06/15/17 20:00 Intake & Output 06/15/17 06/15/17 06/16/17 06:59 18:59 06:59 Intake Total 120 1800 Balance 120 1800 Intake: Oral 120 1800 Other: # Voids 3 4 # Bowel Movements 0 0 Active Medications: Current Medications Acetaminophen (Tylenol) 650 mg PO Q4HR PRN PRN Reason: Mild Pain / Temp above 100 Stop: 07/30/17 20:26 Last Admin: 06/08/17 15:16 Dose: 650 mg Al Hydrox/Mg Hydrox/Simethicone (Maalox) 30 ml PO Q4HR PRN PRN Reason: GI DISTRESS Stop: 07/30/17 20:26 Albuterol/Ipratropium (Duoneb Neb) 3 ml HHN Q8HRT PRN PRN Reason: Shortness of Breath Stop: 08/05/17 17:34 Last Admin: 06/08/17 19:13 Dose: 3 ml Aspirin (Aspirin Chewable) 81 mg PO DAILY [facility] Stop: 07/31/17 08:59 Last Admin: 06/15/17 08:15 Dose: 81 mg Clozapine (Clozaril) 75 mg PO DAILY JOEL PRN Reason: Protocol Stop: 08/14/17 08:35 Last Admin: 06/15/17 08:52 Dose: Not Given Docusate Sodium (Colace) 100 mg PO BID JOEL Stop: 07/31/17 08:59 Last Admin: 06/15/17 16:24 Dose: 100 mg Insulin Aspart (Novolog Insulin Sliding Scale) 0 units SUBQ 0630 JOEL PRN Reason: Protocol Stop: 07/31/17 06:29 Last Admin: 06/15/17 06:45 Dose: Not Given Metoprolol Tartrate (Lopressor) 50 mg PO BID JOEL Stop: 07/31/17 08:59 Last Admin: 06/15/17 16:24 Dose: 50 mg Mirtazapine (Remeron) 15 mg PO HS JOEL PRN Reason: Protocol Stop: 08/04/17 06:21 Last Admin: 06/14/17 20:13 Dose: 15 mg Miscellaneous (Clinical Monitoring) 1 ea MC PRN PRN PRN Reason: PROTOCOL Stop: 08/11/17 12:18 Multivitamins/Vitamin C (Theragran) 1 tab PO DAILY JOEL Stop: 07/31/17 08:59 Last Admin: 06/15/17 08:14 Dose: 1 tab Simvastatin (Zocor) 20 mg PO HS JOEL PRN Reason: Protocol Stop: 07/30/17 20:59 Last Admin: 06/14/17 20:13 Dose: 20 mg Tramadol HCl (Ultram) 50 mg PO Q8HR PRN PRN Reason: Pain (Moderate) Stop: 07/31/17 19:27 Last Admin: 06/11/17 09:37 Dose: 50 mg General: demented HEENT: NC/AT, anicteric sclerae, throat clear Neck: Supple, No JVD, No thyromegaly, +2 carotid pulse wo bruit, No LAD Lungs: CTAB Cardiovascular: RRR, Normal S1, Normal S2, without murmur Abdomen: soft, non-tender, non-distended Extremities: clear Neurological: no change - Procedures Procedures: Procedures Procedure Code Date GROUP PSYCHOTHERAPY 89892 07/16/15 GROUP PSYCHOTHERAPY GZHZZZZ 07/16/15 INDIVID PSYCHOTHERAP NEC 94.39 09/06/13 OTHER GROUP THERAPY 94.44 05/03/14 RECREATIONAL THERAPY 93.81 08/25/12 Internal Medicine Assmt/Plan - Assessment Assessment: 1.DM. 2.HTN. 3.DEMENTEA. 4.DJD - Plan Plan: CONTINUE ON CURRENT MEDICATION AND DIET. Nutritional Asmnt/Malnutr-PDOC - Dietary Evaluation Malnutrition Findings (Please click <Entered> for more info): Nutritional Asmnt/Malnutrition Start: 06/03/17 12: 18 Text: Status: Complete Freq: Document 06/03/17 12:18 GSUN (Rec: 06/03/17 12:30 [email or web address]) Nutritional Asmnt/Malnutrition Patient General Information Nutritional Screening Moderate Risk Screening Diagnosis Chronic paranoid schizophrenia with acute exacerbation Pertinent Medical Hx/Surgical Hx DM, HTN, DJD, dementia, chronic back pain Subjective Information 67 year old male from SNF. Pt appeared anxious and delusional. Avg PO intake 38% of past 6 meals, not meeting nutritional needs. Pt is able to self feed, admits feeling hungry, however refuses to eat , stating "I can't eat, I am sacrificing myself... waiting for a miracle" Senior Environmental Scientist explained to pt several times of importance of nutrition, pt repeatedly responded with above statement. Write was able to obtain pt's food preference for milk and yogurt . No muscle/fat wasting noted. Current Diet Order/ Nutrition Support [facility] soft ground. Pertinent Medications Colace, Novolog, MOM, Remeron, Theragran Pertinent Labs PCO glucose 99-123H since adm Nutritional Hx/Data Height 1.6 m Height (Calculated Centimeters) 160.0 Current Weight (lbs) 59.058 kg Weight (Calculated Kilograms) 59.1 Weight (Calculated Grams) 71225.7 [place] Body Weight 124 Weight Status Approriate GI Symptoms Cultural/Ethnic/Evangelical Belief Likes milk and yogurt Skin Integrity/Comment: Mansoor 17. Skin intact. Current %PO Poor (25-49%) Estimated Nutritional Goals BEE in Kcals: Using Current wt Calories/Kcals/Kg CBW 130.2lb/59.2kg Kcals Calculated 1480-1776kcal (25-30kcal/kg) Protein: Using Current wt Protein Calculated 59g (1g/kg) Fluid: ml 1480-1776ml (1ml/kcal) Nutritional Problem 2. Problem Problem Altered nutrition related laboratory values related to Etiology DM aeb Signs/Symptoms: H&P, on Novolog, elevated POC glucose 1. Problem Problem Inadequate oral food beverage intake related to Etiology cognition, personal believes aeb Signs/Symptoms: pt stated "I can't eat, I am sacrificing myself... waiting for a miracle" Intervention/Recommendation Comments 1. Continue with current diet order to promote PO intake. Avg PO intake is inadequate. Pt believes "I can't eat, I am sacrificing myself... waiting for a miracle." Nursing staff to provide supervision and encouragement with meals. 2. Recommend healthshake and yogurt with every meal. 3. Monitor weight due to poor PO itnake. 4. Monitor glucose levels. Recommend [id number] if PO intake improves to meet >75% of estimated nutritional needs . Expected Outcomes/Goals Expected Outcomes/Goals 1. PO intake to meet at least 75% of estimated nutritional needs.
--- NOTE | 2017-06-15 23:58 | Progress Notes ---
DATE: 06/15/2017 Case was discussed with staff of the patient. The story is not hearing voices. He seems to be a little better, though he still has multiple somatic concerns. He believes having a heart attack. He has been sleeping better, eating better. I will be taking him off the Risperdal dose and increase the Clozaril dose and so far, no side effects, no sedation, no nausea, no extrapyramidal symptoms, his new dose for Plavix 75 mg at bedtime and will continue to work with the patient in group therapy, milieu therapy, adjust medications as needed. JOB# [id number]
[2017-06-16] MEDS: INSULIN ASPART SLIDING SCALE 100 UNITS/ML UNIT SUBQ SCH (06:05)
[2017-06-16] MEDS: Aspirin 81mg Chewable Tab PO SCH (08:33)
[2017-06-16] MEDS: Multivitamin Tab PO SCH (08:33)
--- NOTE | 2017-06-16 21:51 | Internal Medicine Prog Note ---
Internal Medicine Subjective - Subjective Service Date: 06/16/17 Patient seen and examined:: without staff (HE IS DOING BETTER,TOLERATING HIS MEDICATION.) Patient is:: awake, verbal, in bed, confused Per staff patient has:: no adverse event Internal Medicine Objective - Results Result Diagrams: 06/11/17 12:30 Recent Labs: Laboratory Last Values WBC 6.4 Th/cmm (4.8-10.8) 06/11/17 12:30 RBC 4.73 Mil/cmm (3.80-5.80) 06/11/17 12:30 Hgb 13.1 gm/dL (12.6-17.4) 06/11/17 12:30 Hct 39.8 % (39.0-49.0) 06/11/17 12:30 MCV 84.3 fl (80-99) 06/11/17 12:30 MCH 27.7 pg (27.0-31.0) 06/11/17 12:30 MCHC Differential 32.8 pg (28.0-36.0) 06/11/17 12:30 RDW 13.3 % (11.5-20.0) 06/11/17 12:30 Plt Count 438 Th/cmm (150-400) H D 06/11/17 12:30 MPV 7.7 fl 06/11/17 12:30 Neutrophils % 59.8 % (40.0-80.0) 06/11/17 12:30 Lymphocytes % 25.0 % (20.0-50.0) 06/11/17 12:30 Monocytes % 9.9 % (2.0-10.0) 06/11/17 12:30 Eosinophils % 4.4 % (0.0-5.0) 06/11/17 12:30 Basophils % 0.9 % (0.0-2.0) 06/11/17 12:30 POC Glucose 101 MG/DL (70 - 105) 06/16/17 05:48 - Physical Exam Vitals and I&O: Vital Signs Temp 97.6 F 06/16/17 14:00 Pulse 145 06/16/17 20:30 Resp 20 06/16/17 20:30 BP 96/78 06/16/17 16:23 Pulse Ox 98 06/16/17 20:30 Intake & Output 06/16/17 06/16/17 06/17/17 06:59 18:59 06:59 Intake Total 120 1600 Balance 120 1600 Intake: Oral 120 1600 Other: # Voids 3 4 # Bowel Movements 0 Active Medications: Current Medications Acetaminophen (Tylenol) 650 mg PO Q4HR PRN PRN Reason: Mild Pain / Temp above 100 Stop: 07/30/17 20:26 Last Admin: 06/08/17 15:16 Dose: 650 mg Al Hydrox/Mg Hydrox/Simethicone (Maalox) 30 ml PO Q4HR PRN PRN Reason: GI DISTRESS Stop: 07/30/17 20:26 Albuterol/Ipratropium (Duoneb Neb) 3 ml HHN Q8HRT PRN PRN Reason: Shortness of Breath Stop: 08/05/17 17:34 Last Admin: 06/08/17 19:13 Dose: 3 ml Aspirin (Aspirin Chewable) 81 mg PO DAILY [facility] Stop: 07/31/17 08:59 Last Admin: 06/16/17 08:33 Dose: 81 mg Clozapine (Clozaril) 100 mg PO DAILY JOEL PRN Reason: Protocol Stop: 08/15/17 12:30 Docusate Sodium (Colace) 100 mg PO BID JOEL Stop: 07/31/17 08:59 Last Admin: 06/16/17 16:23 Dose: Not Given Insulin Aspart (Novolog Insulin Sliding Scale) 0 units SUBQ 0630 JOEL PRN Reason: Protocol Stop: 07/31/17 06:29 Last Admin: 06/16/17 06:05 Dose: Not Given Metoprolol Tartrate (Lopressor) 50 mg PO BID [facility] Stop: 07/31/17 08:59 Last Admin: 06/16/17 16:23 Dose: Not Given Mirtazapine (Remeron) 15 mg PO HS JOEL PRN Reason: Protocol Stop: 08/04/17 06:21 Last Admin: 06/16/17 20:54 Dose: 15 mg Miscellaneous (Clinical Monitoring) 1 ea MC PRN PRN PRN Reason: PROTOCOL Stop: 08/11/17 12:18 Multivitamins/Vitamin C (Theragran) 1 tab PO DAILY [facility] Stop: 07/31/17 08:59 Last Admin: 06/16/17 08:33 Dose: 1 tab Simvastatin (Zocor) 20 mg PO HS JOEL PRN Reason: Protocol Stop: 07/30/17 20:59 Last Admin: 06/16/17 20:54 Dose: 20 mg Tramadol HCl (Ultram) 50 mg PO Q8HR PRN PRN Reason: Pain (Moderate) Stop: 07/31/17 19:27 Last Admin: 06/11/17 09:37 Dose: 50 mg General: demented HEENT: NC/AT, anicteric sclerae, throat clear Neck: Supple, No JVD, No thyromegaly, +2 carotid pulse wo bruit, No LAD Lungs: CTAB Cardiovascular: RRR, Normal S1, Normal S2, without murmur Abdomen: soft, non-tender, non-distended Extremities: clear Neurological: no change - Procedures Procedures: Procedures Procedure Code Date GROUP PSYCHOTHERAPY 49259 07/16/15 GROUP PSYCHOTHERAPY GZHZZZZ 07/16/15 INDIVID PSYCHOTHERAP NEC 94.39 09/06/13 OTHER GROUP THERAPY 94.44 05/03/14 RECREATIONAL THERAPY 93.81 08/25/12 Internal Medicine Assmt/Plan - Assessment Assessment: 1.DM. 2.HTN. 3.DEMENTEA. 4.DJD - Plan Plan: CONTINUE ON CURRENT MEDICATION AND DIET. Nutritional Asmnt/Malnutr-PDOC - Dietary Evaluation Malnutrition Findings (Please click <Entered> for more info): Nutritional Asmnt/Malnutrition Start: 06/03/17 12: 18 Text: Status: Complete Freq: Document 06/03/17 12:18 GSUN (Rec: 06/03/17 12:30 GSUN [email or web address]) Nutritional Asmnt/Malnutrition Patient General Information Nutritional Screening Moderate Risk Screening Diagnosis Chronic paranoid schizophrenia with acute exacerbation Pertinent Medical Hx/Surgical Hx DM, HTN, DJD, dementia, chronic back pain Subjective Information 67 year old male from SNF. Pt appeared anxious and delusional. Avg PO intake 38% of past 6 meals, not meeting nutritional needs. Pt is able to self feed, admits feeling hungry, however refuses to eat , stating "I can't eat, I am sacrificing myself... waiting for a miracle" Brand Marketing Intern explained to pt several times of importance of nutrition, pt repeatedly responded with above statement. Write was able to obtain pt's food preference for milk and yogurt . No muscle/fat wasting noted. Current Diet Order/ Nutrition Support [facility] soft ground. Pertinent Medications Colace, Novolog, MOM, Remeron, Theragran Pertinent Labs PCO glucose 99-123H since adm Nutritional Hx/Data Height 1.6 m Height (Calculated Centimeters) 160.0 Current Weight (lbs) 59.058 kg Weight (Calculated Kilograms) 59.1 Weight (Calculated Grams) 10703.7 [place] Body Weight 124 Weight Status Approriate GI Symptoms Cultural/Ethnic/Temple Belief Likes milk and yogurt Skin Integrity/Comment: Mansoor 17. Skin intact. Current %PO Poor (25-49%) Estimated Nutritional Goals BEE in Kcals: Using Current wt Calories/Kcals/Kg CBW 130.2lb/59.2kg Kcals Calculated 1480-1776kcal (25-30kcal/kg) Protein: Using Current wt Protein Calculated 59g (1g/kg) Fluid: ml 1480-1776ml (1ml/kcal) Nutritional Problem 2. Problem Problem Altered nutrition related laboratory values related to Etiology DM aeb Signs/Symptoms: H&P, on Novolog, elevated POC glucose 1. Problem Problem Inadequate oral food beverage intake related to Etiology cognition, personal believes aeb Signs/Symptoms: pt stated "I can't eat, I am sacrificing myself... waiting for a miracle" Intervention/Recommendation Comments 1. Continue with current diet order to promote PO intake. Avg PO intake is inadequate. Pt believes "I can't eat, I am sacrificing myself... waiting for a miracle." Nursing staff to provide supervision and encouragement with meals. 2. Recommend healthshake and yogurt with every meal. 3. Monitor weight due to poor PO itnake. 4. Monitor glucose levels. Recommend [id number] if PO intake improves to meet >75% of estimated nutritional needs . Expected Outcomes/Goals Expected Outcomes/Goals 1. PO intake to meet at least 75% of estimated nutritional needs.
--- NOTE | 2017-06-16 23:23 | Progress Notes ---
DATE: 06/16/2017 Case was discussed with staff of the patient, reviewed records. The patient seems to be showing a little progress. He is still internally preoccupied. Continues to have feelings he is going to have a heart attack. He continues to be unpredictable, impulsive, needing redirection. He is compliant with the medication with no side effects, no sedation, no nausea, no extrapyramidal symptoms. I will be increasing the dose to 100 mg at bedtime and he is currently denying any intent to harm himself or anybody. He denies that the hallucinations are command hallucination. We will continue to work with the patient in group therapy, milieu therapy, and adjust the medication as needed. JOB# [id number]
[2017-06-17] MEDS: INSULIN ASPART SLIDING SCALE 100 UNITS/ML UNIT SUBQ SCH (06:03)
[2017-06-17] MEDS: Aspirin 81mg Chewable Tab PO SCH (08:13)
[2017-06-17] MEDS: Multivitamin Tab PO SCH (08:14)
[2017-06-17] MEDS ORDERED: Haloperidol Lactate 5 mg/mL 1mL Vial IM ONE (12:55)
[2017-06-17] MEDS: cloZAPine 100 MG, cloZAPine 25 MG PO SCH (12:59)
[2017-06-17] MEDS ORDERED: Haloperidol Lactate 5 mg/mL 1mL Vial ONE (13:00)
--- NOTE | 2017-06-17 15:24 | Internal Medicine Prog Note ---
Internal Medicine Subjective - Subjective Service Date: 06/17/17 Patient seen and examined:: with staff Patient is:: awake, verbal, in bed, confused Per staff patient has:: no adverse event Internal Medicine Objective - Results Result Diagrams: 06/11/17 12:30 Recent Labs: Laboratory Last Values WBC 6.4 Th/cmm (4.8-10.8) 06/11/17 12:30 RBC 4.73 Mil/cmm (3.80-5.80) 06/11/17 12:30 Hgb 13.1 gm/dL (12.6-17.4) 06/11/17 12:30 Hct 39.8 % (39.0-49.0) 06/11/17 12:30 MCV 84.3 fl (80-99) 06/11/17 12:30 MCH 27.7 pg (27.0-31.0) 06/11/17 12:30 MCHC Differential 32.8 pg (28.0-36.0) 06/11/17 12:30 RDW 13.3 % (11.5-20.0) 06/11/17 12:30 Plt Count 438 Th/cmm (150-400) H D 06/11/17 12:30 MPV 7.7 fl 06/11/17 12:30 Neutrophils % 59.8 % (40.0-80.0) 06/11/17 12:30 Lymphocytes % 25.0 % (20.0-50.0) 06/11/17 12:30 Monocytes % 9.9 % (2.0-10.0) 06/11/17 12:30 Eosinophils % 4.4 % (0.0-5.0) 06/11/17 12:30 Basophils % 0.9 % (0.0-2.0) 06/11/17 12:30 POC Glucose 106 MG/DL (70 - 105) H 06/17/17 05:58 - Physical Exam Vitals and I&O: Vital Signs Temp 97.8 F 06/17/17 06:39 Pulse 115 06/17/17 07:41 Resp 20 06/17/17 07:41 BP 133/75 06/17/17 06:39 Pulse Ox 97 06/17/17 07:41 Intake & Output 06/16/17 06/17/17 06/17/17 18:59 06:59 18:59 Intake Total 1600 120 Balance 1600 120 Intake: Oral 1600 120 Other: # Voids 4 3 # Bowel Movements 0 Active Medications: Current Medications Acetaminophen (Tylenol) 650 mg PO Q4HR PRN PRN Reason: Mild Pain / Temp above 100 Stop: 07/30/17 20:26 Last Admin: 06/08/17 15:16 Dose: 650 mg Al Hydrox/Mg Hydrox/Simethicone (Maalox) 30 ml PO Q4HR PRN PRN Reason: GI DISTRESS Stop: 07/30/17 20:26 Albuterol/Ipratropium (Duoneb Neb) 3 ml HHN Q8HRT PRN PRN Reason: Shortness of Breath Stop: 08/05/17 17:34 Last Admin: 06/08/17 19:13 Dose: 3 ml Aspirin (Aspirin Chewable) 81 mg PO DAILY [facility] Stop: 07/31/17 08:59 Last Admin: 06/17/17 08:13 Dose: 81 mg Clozapine 100 mg/ Clozapine 25 (mg) 125 mg PO DAILY JOEL Stop: 08/16/17 11:29 Last Admin: 06/17/17 12:59 Dose: Not Given Divalproex Sodium (Depakote Dr) 250 mg PO Q8HR JOEL PRN Reason: Protocol Stop: 08/16/17 12:59 Last Admin: 06/17/17 13:06 Dose: Not Given Docusate Sodium (Colace) 100 mg PO BID JOEL Stop: 07/31/17 08:59 Last Admin: 06/17/17 08:14 Dose: 100 mg Insulin Aspart (Novolog Insulin Sliding Scale) 0 units SUBQ 0630 JOEL PRN Reason: Protocol Stop: 07/31/17 06:29 Last Admin: 06/17/17 06:03 Dose: Not Given Metoprolol Tartrate (Lopressor) 25 mg PO HS JOEL Stop: 08/16/17 20:59 Mirtazapine (Remeron) 15 mg PO HS JOEL PRN Reason: Protocol Stop: 08/04/17 06:21 Last Admin: 06/16/17 20:54 Dose: 15 mg Miscellaneous (Clinical Monitoring) 1 ea MC PRN PRN PRN Reason: PROTOCOL Stop: 08/11/17 12:18 Multivitamins/Vitamin C (Theragran) 1 tab PO DAILY [facility] Stop: 07/31/17 08:59 Last Admin: 06/17/17 08:14 Dose: 1 tab Simvastatin (Zocor) 20 mg PO HS JOEL PRN Reason: Protocol Stop: 07/30/17 20:59 Last Admin: 06/16/17 20:54 Dose: 20 mg Tramadol HCl (Ultram) 50 mg PO Q8HR PRN PRN Reason: Pain (Moderate) Stop: 07/31/17 19:27 Last Admin: 06/11/17 09:37 Dose: 50 mg General: demented HEENT: NC/AT, anicteric sclerae, throat clear Neck: Supple, No JVD, No thyromegaly, +2 carotid pulse wo bruit, No LAD Lungs: CTAB Cardiovascular: RRR, Normal S1, Normal S2, without murmur Abdomen: soft, non-tender, non-distended Extremities: clear Neurological: no change - Procedures Procedures: Procedures Procedure Code Date GROUP PSYCHOTHERAPY 36020 07/16/15 GROUP PSYCHOTHERAPY GZHZZZZ 07/16/15 INDIVID PSYCHOTHERAP NEC 94.39 09/06/13 OTHER GROUP THERAPY 94.44 05/03/14 RECREATIONAL THERAPY 93.81 08/25/12 Internal Medicine Assmt/Plan - Assessment Assessment: 1.DM. 2.HTN. 3.DEMENTEA. 4.DJD - Plan Plan: CONTINUE ON CURRENT MEDICATION AND DIET. Nutritional Asmnt/Malnutr-PDOC - Dietary Evaluation Malnutrition Findings (Please click <Entered> for more info): Nutritional Asmnt/Malnutrition Start: 06/03/17 12: 18 Text: Status: Complete Freq: Document 06/03/17 12:18 GSUN (Rec: 06/03/17 12:30 GSUN [email or web address]) Nutritional Asmnt/Malnutrition Patient General Information Nutritional Screening Moderate Risk Screening Diagnosis Chronic paranoid schizophrenia with acute exacerbation Pertinent Medical Hx/Surgical Hx DM, HTN, DJD, dementia, chronic back pain Subjective Information 67 year old male from SNF. Pt appeared anxious and delusional. Avg PO intake 38% of past 6 meals, not meeting nutritional needs. Pt is able to self feed, admits feeling hungry, however refuses to eat , stating "I can't eat, I am sacrificing myself... waiting for a miracle" Printer'S Assistant explained to pt several times of importance of nutrition, pt repeatedly responded with above statement. Write was able to obtain pt's food preference for milk and yogurt . No muscle/fat wasting noted. Current Diet Order/ Nutrition Support [facility] soft ground. Pertinent Medications Colace, Novolog, MOM, Remeron, Theragran Pertinent Labs PCO glucose 99-123H since adm Nutritional Hx/Data Height 1.6 m Height (Calculated Centimeters) 160.0 Current Weight (lbs) 59.058 kg Weight (Calculated Kilograms) 59.1 Weight (Calculated Grams) 40463.7 [place] Body Weight 124 Weight Status Approriate GI Symptoms Cultural/Ethnic/Jehovah'S Witness Belief Likes milk and yogurt Skin Integrity/Comment: Mansoor 17. Skin intact. Current %PO Poor (25-49%) Estimated Nutritional Goals BEE in Kcals: Using Current wt Calories/Kcals/Kg CBW 130.2lb/59.2kg Kcals Calculated 1480-1776kcal (25-30kcal/kg) Protein: Using Current wt Protein Calculated 59g (1g/kg) Fluid: ml 1480-1776ml (1ml/kcal) Nutritional Problem 2. Problem Problem Altered nutrition related laboratory values related to Etiology DM aeb Signs/Symptoms: H&P, on Novolog, elevated POC glucose 1. Problem Problem Inadequate oral food beverage intake related to Etiology cognition, personal believes aeb Signs/Symptoms: pt stated "I can't eat, I am sacrificing myself... waiting for a miracle" Intervention/Recommendation Comments 1. Continue with current diet order to promote PO intake. Avg PO intake is inadequate. Pt believes "I can't eat, I am sacrificing myself... waiting for a miracle." Nursing staff to provide supervision and encouragement with meals. 2. Recommend healthshake and yogurt with every meal. 3. Monitor weight due to poor PO itnake. 4. Monitor glucose levels. Recommend [id number] if PO intake improves to meet >75% of estimated nutritional needs . Expected Outcomes/Goals Expected Outcomes/Goals 1. PO intake to meet at least 75% of estimated nutritional needs.
--- NOTE | 2017-06-17 23:07 | Progress Notes ---
DATE: 06/17/2017 Case was discussed with staff of the patient, reviewed records. The patient continues to be degroot, irritable, continues to be responding to internal stimuli. He said he could not sleep last night. The staff believes he is displaying some bipolar symptoms being degroot. He is on Clozaril with no side effects, no sedation, no nausea, no extrapyramidal symptoms. I will be increasing the dose 125 mg a day and I will be adding a small dose of Depakote to his medication to help stabilize his mood. We will continue to work with the patient in group therapy, milieu therapy, adjust medications as needed. JOB# [id number]
[2017-06-18] MEDS: INSULIN ASPART SLIDING SCALE 100 UNITS/ML UNIT SUBQ SCH (05:53)
[2017-06-18] MEDS: cloZAPine 100 MG, cloZAPine 25 MG PO SCH (08:34)
[2017-06-18] MEDS: Multivitamin Tab PO SCH (08:34)
[2017-06-18] MEDS: Aspirin 81mg Chewable Tab PO SCH (08:34)
--- NOTE | 2017-06-18 16:53 | General Progress Note ---
Subjective - Review of Systems Service Date: 06/18/17 Subjective: resting comfortably in bed cooperative no distress Objective - Results Result Diagrams: 06/11/17 12:30 Recent Labs: Laboratory Last Values WBC 6.4 Th/cmm (4.8-10.8) 06/11/17 12:30 RBC 4.73 Mil/cmm (3.80-5.80) 06/11/17 12:30 Hgb 13.1 gm/dL (12.6-17.4) 06/11/17 12:30 Hct 39.8 % (39.0-49.0) 06/11/17 12:30 MCV 84.3 fl (80-99) 06/11/17 12:30 MCH 27.7 pg (27.0-31.0) 06/11/17 12:30 MCHC Differential 32.8 pg (28.0-36.0) 06/11/17 12:30 RDW 13.3 % (11.5-20.0) 06/11/17 12:30 Plt Count 438 Th/cmm (150-400) H D 06/11/17 12:30 MPV 7.7 fl 06/11/17 12:30 Neutrophils % 59.8 % (40.0-80.0) 06/11/17 12:30 Lymphocytes % 25.0 % (20.0-50.0) 06/11/17 12:30 Monocytes % 9.9 % (2.0-10.0) 06/11/17 12:30 Eosinophils % 4.4 % (0.0-5.0) 06/11/17 12:30 Basophils % 0.9 % (0.0-2.0) 06/11/17 12:30 POC Glucose 94 MG/DL (70 - 105) 06/18/17 05:50 - Physical Exam Vitals and I&O: Vital Signs Temp 97.6 F 06/18/17 15:28 Pulse 94 06/18/17 15:28 Resp 18 06/18/17 15:28 BP 107/66 06/18/17 15:28 Pulse Ox 97 06/18/17 15:28 Intake & Output 06/17/17 06/18/17 06/18/17 18:59 06:59 18:59 Intake Total 960 360 Balance 960 360 Intake: Oral 960 360 Other: # Voids 3 2 # Bowel Movements 1 Active Medications: Current Medications Acetaminophen (Tylenol) 650 mg PO Q4HR PRN PRN Reason: Mild Pain / Temp above 100 Stop: 07/30/17 20:26 Last Admin: 06/08/17 15:16 Dose: 650 mg Al Hydrox/Mg Hydrox/Simethicone (Maalox) 30 ml PO Q4HR PRN PRN Reason: GI DISTRESS Stop: 07/30/17 20:26 Albuterol/Ipratropium (Duoneb Neb) 3 ml HHN Q8HRT PRN PRN Reason: Shortness of Breath Stop: 08/05/17 17:34 Last Admin: 06/08/17 19:13 Dose: 3 ml Aspirin (Aspirin Chewable) 81 mg PO DAILY [facility] Stop: 07/31/17 08:59 Last Admin: 06/18/17 08:34 Dose: 81 mg Clozapine 100 mg/ Clozapine 25 (mg) 125 mg PO DAILY JOEL Stop: 08/16/17 11:29 Last Admin: 06/18/17 08:34 Dose: 125 mg Divalproex Sodium (Depakote Dr) 250 mg PO Q8HR JOEL PRN Reason: Protocol Stop: 08/16/17 12:59 Last Admin: 06/18/17 12:28 Dose: 250 mg Docusate Sodium (Colace) 100 mg PO BID JOEL Stop: 07/31/17 08:59 Last Admin: 06/18/17 16:03 Dose: Not Given Insulin Aspart (Novolog Insulin Sliding Scale) 0 units SUBQ 0630 JOEL PRN Reason: Protocol Stop: 07/31/17 06:29 Last Admin: 06/18/17 05:53 Dose: Not Given Metoprolol Tartrate (Lopressor) 25 mg PO HS JOEL Stop: 08/16/17 20:59 Last Admin: 06/17/17 20:36 Dose: 25 mg Mirtazapine (Remeron) 15 mg PO HS JOEL PRN Reason: Protocol Stop: 08/04/17 06:21 Last Admin: 06/17/17 20:36 Dose: 15 mg Miscellaneous (Clinical Monitoring) 1 ea MC PRN PRN PRN Reason: PROTOCOL Stop: 08/11/17 12:18 Multivitamins/Vitamin C (Theragran) 1 tab PO DAILY [facility] Stop: 07/31/17 08:59 Last Admin: 06/18/17 08:34 Dose: 1 tab Simvastatin (Zocor) 20 mg PO HS JOEL PRN Reason: Protocol Stop: 07/30/17 20:59 Last Admin: 06/17/17 20:35 Dose: 20 mg Tramadol HCl (Ultram) 50 mg PO Q8HR PRN PRN Reason: Pain (Moderate) Stop: 07/31/17 19:27 Last Admin: 06/11/17 09:37 Dose: 50 mg General: Alert Neck: Supple Cardiovascular: Regular rate, Normal S1 Lungs: Clear to auscultation Abdomen: Bowel sounds, Soft - Procedures Procedures: Procedures Procedure Code Date GROUP PSYCHOTHERAPY 28926 07/16/15 GROUP PSYCHOTHERAPY GZHZZZZ 07/16/15 INDIVID PSYCHOTHERAP NEC 94.39 09/06/13 OTHER GROUP THERAPY 94.44 05/03/14 RECREATIONAL THERAPY 93.81 08/25/12 Assessment/Plan - Problem List Patient Problems: All Active Problems Anemia (Active) D64.9 Arthritis (Active) M19.90 CVA - cerebrovascular accident due to cerebral artery occlusion (Active) I63.50 Chronic obstructive lung disease (Active) J44.9 Degenerative joint disease of ankle AND/OR foot (Active) M19.079 Diabetes mellitus (Active) E11.9 Weakness of limb (Active) M62.81 Agitation (Acute) R45.1 Hypertension (Acute) I10 INCREASED HALLUCINATION (Acute 05/03/14) Mental health problem (Acute) F48.9 Schizo affective schizophrenia (Acute) F25.0 - Assessment Assessment: 1.DM. 2.HTN. 3.DEMENTIA. 4.DJD - Plan Plan: cont current treatment Nutritional Asmnt/Malnutr-PDOC - Dietary Evaluation Malnutrition Findings (Please click <Entered> for more info): Nutritional Asmnt/Malnutrition Start: 06/03/17 12: 18 Text: Status: Complete Freq: Document 06/03/17 12:18 GSUN (Rec: 06/03/17 12:30 GSUN [email or web address]) Nutritional Asmnt/Malnutrition Patient General Information Nutritional Screening Moderate Risk Screening Diagnosis Chronic paranoid schizophrenia with acute exacerbation Pertinent Medical Hx/Surgical Hx DM, HTN, DJD, dementia, chronic back pain Subjective Information 67 year old male from SNF. Pt appeared anxious and delusional. Avg PO intake 38% of past 6 meals, not meeting nutritional needs. Pt is able to self feed, admits feeling hungry, however refuses to eat , stating "I can't eat, I am sacrificing myself... waiting for a miracle" Bureau Director explained to pt several times of importance of nutrition, pt repeatedly responded with above statement. Write was able to obtain pt's food preference for milk and yogurt . No muscle/fat wasting noted. Current Diet Order/ Nutrition Support [facility] soft ground. Pertinent Medications Colace, Novolog, MOM, Remeron, Theragran Pertinent Labs PCO glucose 99-123H since adm Nutritional Hx/Data Height 1.6 m Height (Calculated Centimeters) 160.0 Current Weight (lbs) 59.058 kg Weight (Calculated Kilograms) 59.1 Weight (Calculated Grams) 29744.7 [place] Body Weight 124 Weight Status Approriate GI Symptoms Cultural/Ethnic/Judaism Belief Likes milk and yogurt Skin Integrity/Comment: Mansoor 17. Skin intact. Current %PO Poor (25-49%) Estimated Nutritional Goals BEE in Kcals: Using Current wt Calories/Kcals/Kg CBW 130.2lb/59.2kg Kcals Calculated 1480-1776kcal (25-30kcal/kg) Protein: Using Current wt Protein Calculated 59g (1g/kg) Fluid: ml 1480-1776ml (1ml/kcal) Nutritional Problem 2. Problem Problem Altered nutrition related laboratory values related to Etiology DM aeb Signs/Symptoms: H&P, on Novolog, elevated POC glucose 1. Problem Problem Inadequate oral food beverage intake related to Etiology cognition, personal believes aeb Signs/Symptoms: pt stated "I can't eat, I am sacrificing myself... waiting for a miracle" Intervention/Recommendation Comments 1. Continue with current diet order to promote PO intake. Avg PO intake is inadequate. Pt believes "I can't eat, I am sacrificing myself... waiting for a miracle." Nursing staff to provide supervision and encouragement with meals. 2. Recommend healthshake and yogurt with every meal. 3. Monitor weight due to poor PO itnake. 4. Monitor glucose levels. Recommend [id number] if PO intake improves to meet >75% of estimated nutritional needs . Expected Outcomes/Goals Expected Outcomes/Goals 1. PO intake to meet at least 75% of estimated nutritional needs.
--- NOTE | 2017-06-18 21:50 | Progress Notes ---
DATE: 06/18/2017 Dr. Hickey is covering for Dr. Peguero. SUBJECTIVE: Chart reviewed and the patient interviewed. Also discussed the patient's condition with the staff and reviewed records and labs. The patient is still easily agitated and the patient is still withdrawn. The patient also is still combative and aggressive with the staff and the patient had to be given Haldol, Ativan and Benadryl on emergency basis yesterday at around 1:00 p.m. Also, still needs lots of redirections. He also still seems to be actively responding to stimuli. The patient also is still complaining of difficulty sleeping at night and only sleeping for a few hours according to staff. The patient is still in irritable and angry mood and also is still disheveled. ASSESSMENT: The patient is still psychotic and can be dangerous to others. TREATMENT PLAN: Clozaril was increased yesterday to 125 mg everyday. We will continue same dose. Also, continue every 8 hours and Remeron 15 mg at bedtime and we will continue to follow up his condition closely. JOB# [id number]
[2017-06-19] MEDS: INSULIN ASPART SLIDING SCALE 100 UNITS/ML UNIT SUBQ SCH (05:54)
--- NOTE | 2017-06-19 07:51 | General Progress Note ---
Subjective - Review of Systems Service Date: 06/19/17 Subjective: resting comfortably in bed cooperative no distress Objective - Results Result Diagrams: 06/11/17 12:30 Recent Labs: Laboratory Last Values WBC 6.4 Th/cmm (4.8-10.8) 06/11/17 12:30 RBC 4.73 Mil/cmm (3.80-5.80) 06/11/17 12:30 Hgb 13.1 gm/dL (12.6-17.4) 06/11/17 12:30 Hct 39.8 % (39.0-49.0) 06/11/17 12:30 MCV 84.3 fl (80-99) 06/11/17 12:30 MCH 27.7 pg (27.0-31.0) 06/11/17 12:30 MCHC Differential 32.8 pg (28.0-36.0) 06/11/17 12:30 RDW 13.3 % (11.5-20.0) 06/11/17 12:30 Plt Count 438 Th/cmm (150-400) H D 06/11/17 12:30 MPV 7.7 fl 06/11/17 12:30 Neutrophils % 59.8 % (40.0-80.0) 06/11/17 12:30 Lymphocytes % 25.0 % (20.0-50.0) 06/11/17 12:30 Monocytes % 9.9 % (2.0-10.0) 06/11/17 12:30 Eosinophils % 4.4 % (0.0-5.0) 06/11/17 12:30 Basophils % 0.9 % (0.0-2.0) 06/11/17 12:30 POC Glucose 104 MG/DL (70 - 105) 06/19/17 05:53 - Physical Exam Vitals and I&O: Vital Signs Temp 97.9 F 06/19/17 06:44 Pulse 103 06/19/17 06:44 Resp 20 06/19/17 06:44 BP 102/59 06/19/17 06:44 Pulse Ox 97 06/19/17 06:44 Intake & Output 06/18/17 06/19/17 06/19/17 18:59 06:59 18:59 Intake Total 1200 720 Balance 1200 720 Intake: Oral 1200 720 Other: # Voids 4 2 # Bowel Movements 1 Active Medications: Current Medications Acetaminophen (Tylenol) 650 mg PO Q4HR PRN PRN Reason: Mild Pain / Temp above 100 Stop: 07/30/17 20:26 Last Admin: 06/08/17 15:16 Dose: 650 mg Al Hydrox/Mg Hydrox/Simethicone (Maalox) 30 ml PO Q4HR PRN PRN Reason: GI DISTRESS Stop: 07/30/17 20:26 Albuterol/Ipratropium (Duoneb Neb) 3 ml HHN Q8HRT PRN PRN Reason: Shortness of Breath Stop: 08/05/17 17:34 Last Admin: 06/08/17 19:13 Dose: 3 ml Aspirin (Aspirin Chewable) 81 mg PO DAILY [facility] Stop: 07/31/17 08:59 Last Admin: 06/18/17 08:34 Dose: 81 mg Clozapine 100 mg/ Clozapine 25 (mg) 125 mg PO DAILY JOEL Stop: 08/16/17 11:29 Last Admin: 06/18/17 08:34 Dose: 125 mg Divalproex Sodium (Depakote Dr) 250 mg PO Q8HR JOEL PRN Reason: Protocol Stop: 08/16/17 12:59 Last Admin: 06/19/17 05:48 Dose: 250 mg Docusate Sodium (Colace) 100 mg PO BID JOEL Stop: 07/31/17 08:59 Last Admin: 06/18/17 16:03 Dose: Not Given Insulin Aspart (Novolog Insulin Sliding Scale) 0 units SUBQ 0630 JOEL PRN Reason: Protocol Stop: 07/31/17 06:29 Last Admin: 06/19/17 05:54 Dose: Not Given Metoprolol Tartrate (Lopressor) 25 mg PO HS JOEL Stop: 08/16/17 20:59 Last Admin: 06/18/17 20:27 Dose: 25 mg Mirtazapine (Remeron) 15 mg PO HS JOEL PRN Reason: Protocol Stop: 08/04/17 06:21 Last Admin: 06/18/17 20:27 Dose: 15 mg Miscellaneous (Clinical Monitoring) 1 ea MC PRN PRN PRN Reason: PROTOCOL Stop: 08/11/17 12:18 Multivitamins/Vitamin C (Theragran) 1 tab PO DAILY JOEL Stop: 07/31/17 08:59 Last Admin: 06/18/17 08:34 Dose: 1 tab Simvastatin (Zocor) 20 mg PO HS JOEL PRN Reason: Protocol Stop: 07/30/17 20:59 Last Admin: 06/18/17 20:27 Dose: 20 mg Tramadol HCl (Ultram) 50 mg PO Q8HR PRN PRN Reason: Pain (Moderate) Stop: 07/31/17 19:27 Last Admin: 06/11/17 09:37 Dose: 50 mg General: Alert Neck: Supple Cardiovascular: Regular rate, Normal S1 Lungs: Clear to auscultation Abdomen: Bowel sounds, Soft - Procedures Procedures: Procedures Procedure Code Date GROUP PSYCHOTHERAPY 46783 07/16/15 GROUP PSYCHOTHERAPY GZHZZZZ 07/16/15 INDIVID PSYCHOTHERAP NEC 94.39 09/06/13 OTHER GROUP THERAPY 94.44 05/03/14 RECREATIONAL THERAPY 93.81 08/25/12 Assessment/Plan - Problem List Patient Problems: All Active Problems Anemia (Active) D64.9 Arthritis (Active) M19.90 CVA - cerebrovascular accident due to cerebral artery occlusion (Active) I63.50 Chronic obstructive lung disease (Active) J44.9 Degenerative joint disease of ankle AND/OR foot (Active) M19.079 Diabetes mellitus (Active) E11.9 Weakness of limb (Active) M62.81 Agitation (Acute) R45.1 Hypertension (Acute) I10 INCREASED HALLUCINATION (Acute 05/03/14) Mental health problem (Acute) F48.9 Schizo affective schizophrenia (Acute) F25.0 - Assessment Assessment: 1.DM. 2.HTN. 3.DEMENTIA. 4.DJD - Plan Plan: cont current treatment Nutritional Asmnt/Malnutr-PDOC - Dietary Evaluation Malnutrition Findings (Please click <Entered> for more info): Nutritional Asmnt/Malnutrition Start: 06/03/17 12: 18 Text: Status: Complete Freq: Document 06/03/17 12:18 GSUN (Rec: 06/03/17 12:30 [email or web address]) Nutritional Asmnt/Malnutrition Patient General Information Nutritional Screening Moderate Risk Screening Diagnosis Chronic paranoid schizophrenia with acute exacerbation Pertinent Medical Hx/Surgical Hx DM, HTN, DJD, dementia, chronic back pain Subjective Information 67 year old male from SNF. Pt appeared anxious and delusional. Avg PO intake 38% of past 6 meals, not meeting nutritional needs. Pt is able to self feed, admits feeling hungry, however refuses to eat , stating "I can't eat, I am sacrificing myself... waiting for a miracle" Outside Rigger explained to pt several times of importance of nutrition, pt repeatedly responded with above statement. Write was able to obtain pt's food preference for milk and yogurt . No muscle/fat wasting noted. Current Diet Order/ Nutrition Support [facility] soft ground. Pertinent Medications Colace, Novolog, MOM, Remeron, Theragran Pertinent Labs PCO glucose 99-123H since adm Nutritional Hx/Data Height 1.6 m Height (Calculated Centimeters) 160.0 Current Weight (lbs) 59.058 kg Weight (Calculated Kilograms) 59.1 Weight (Calculated Grams) 72366.7 [place] Body Weight 124 Weight Status Approriate GI Symptoms Cultural/Ethnic/Spiritism Belief Likes milk and yogurt Skin Integrity/Comment: Mansoor 17. Skin intact. Current %PO Poor (25-49%) Estimated Nutritional Goals BEE in Kcals: Using Current wt Calories/Kcals/Kg CBW 130.2lb/59.2kg Kcals Calculated 1480-1776kcal (25-30kcal/kg) Protein: Using Current wt Protein Calculated 59g (1g/kg) Fluid: ml 1480-1776ml (1ml/kcal) Nutritional Problem 2. Problem Problem Altered nutrition related laboratory values related to Etiology DM aeb Signs/Symptoms: H&P, on Novolog, elevated POC glucose 1. Problem Problem Inadequate oral food beverage intake related to Etiology cognition, personal believes aeb Signs/Symptoms: pt stated "I can't eat, I am sacrificing myself... waiting for a miracle" Intervention/Recommendation Comments 1. Continue with current diet order to promote PO intake. Avg PO intake is inadequate. Pt believes "I can't eat, I am sacrificing myself... waiting for a miracle." Nursing staff to provide supervision and encouragement with meals. 2. Recommend healthshake and yogurt with every meal. 3. Monitor weight due to poor PO itnake. 4. Monitor glucose levels. Recommend [id number] if PO intake improves to meet >75% of estimated nutritional needs . Expected Outcomes/Goals Expected Outcomes/Goals 1. PO intake to meet at least 75% of estimated nutritional needs.
[2017-06-19] MEDS: cloZAPine 100 MG, cloZAPine 25 MG PO SCH (08:15)
[2017-06-19] MEDS: Aspirin 81mg Chewable Tab PO SCH (08:15)
[2017-06-19] MEDS: Multivitamin Tab PO SCH (08:15)
--- NOTE | 2017-06-19 20:24 | Progress Notes ---
DATE: 06/19/2017 SUBJECTIVE: Chart reviewed and the patient interviewed. Also discussed the patient's condition with the staff and reviewed records and labs. The patient continued to be severely agitated and he is still paranoid. The patient also is still actively responding to stimuli. He also still has severe mood swings and irritability and needs lots of redirections with difficulty following directions. ASSESSMENT: The patient is still agitated and psychotic. TREATMENT PLAN: We will continue monitoring his behavior and his condition closely. Also, continue Clozaril that was increased to 125 mg a day and continue Depakote and Remeron. JOB# [id number]
[2017-06-20] MEDS ORDERED: Pantoprazole 40 mg EC Tab PO ONE (00:30)
[2017-06-20] MEDS: INSULIN ASPART SLIDING SCALE 100 UNITS/ML UNIT SUBQ SCH (06:38)
[2017-06-20] MEDS: Pantoprazole 40 mg EC Tab PO SCH (07:01)
[2017-06-20 07:52] LABS: % BASOPHILS 0.8 % (0.0-2.0); % EOSINOPHILS 0.7 % (0.0-5.0); % LYMPHOCYTES 20.1 % (20.0-50.0); % MONOCYTES 8.8 % (2.0-10.0); % NEUTROPHILS 69.6 % (40.0-80.0); HEMATOCRIT 38.4 % (41.0-60); HEMOGLOBIN 12.7 gm/dL (12-16); MEAN PLATELET VOLUME 8.5 fl; NEUTROPHILE ABSOLUTE 6.9 Th/cmm (1.8-8.0); PLATELET COUNT 352 Th/cmm (150-400); RED BLOOD COUNT 4.52 Mil/cmm (3.80-5.80); RED CELL DISTRIBUTION WIDTH 13.8 % (11.5-20.0)
[2017-06-20 08:28] LABS: ALB/GLOB RATIO 1.1 (1.0-1.8); ALKALINE PHOSPHATASE 132 U/L (34-104); ANION GAP 9.5 (7.0-16.0); BILIRUBIN,TOTAL 0.6 mg/dL (0.3-1.0); BUN - UREA NITROGEN 12 mg/dL (7-25); BUN/CREATININE RATIO 17.1; CALCIUM SERUM 8.9 mg/dL (8.6-10.3); CARBON DIOXIDE 28.6 mEq/L (21.0-31.0); CHLORIDE 104 mEq/L (98-107); CREATININE - SERUM 0.7 mg/dL (0.7-1.3); GLUCOSE 88 mg/dL (70-105); POTASSIUM SERUM 4.1 mEq/L (3.5-5.1); SGOT 16 U/L (13-39); SGPT/ALT 10 U/L (7-52); SODIUM SERUM 138 mEq/L (136-145)
[2017-06-20] MEDS ORDERED: Pantoprazole 40 mg EC Tab PO SCH (09:00)
[2017-06-20] MEDS: cloZAPine 100 MG, cloZAPine 25 MG PO SCH (09:48)
[2017-06-20] MEDS: Multivitamin Tab PO SCH (09:49)
--- NOTE | 2017-06-20 18:56 | Internal Medicine Prog Note ---
Internal Medicine Subjective - Subjective Service Date: 06/20/17 Patient seen and examined:: with staff (HE IS TAKING MEDICATION,STILL HAS ON AND OFF TACHYCARDIA.NO NAUSEA OR VOMITING.) Patient is:: awake, verbal, in bed, confused Per staff patient has:: no adverse event Internal Medicine Objective - Results Result Diagrams: 06/20/17 07:07 06/20/17 07:07 Recent Labs: Laboratory Last Values WBC 10.0 Th/cmm (4.8-10.8) D 06/20/17 07:07 RBC 4.52 Mil/cmm (3.80-5.80) 06/20/17 07:07 Hgb 12.7 gm/dL (12-16) 06/20/17 07:07 Hct 38.4 % (41.0-60) L 06/20/17 07:07 MCV 85.0 fl (80-99) 06/20/17 07:07 MCH 28.0 pg (27.0-31.0) 06/20/17 07:07 MCHC Differential 33.0 pg (28.0-36.0) 06/20/17 07:07 RDW 13.8 % (11.5-20.0) 06/20/17 07:07 Plt Count 352 Th/cmm (150-400) 06/20/17 07:07 MPV 8.5 fl 06/20/17 07:07 Neutrophils % 69.6 % (40.0-80.0) 06/20/17 07:07 Lymphocytes % 20.1 % (20.0-50.0) 06/20/17 07:07 Monocytes % 8.8 % (2.0-10.0) 06/20/17 07:07 Eosinophils % 0.7 % (0.0-5.0) 06/20/17 07:07 Basophils % 0.8 % (0.0-2.0) 06/20/17 07:07 Sodium 138 mEq/L (136-145) 06/20/17 07:07 Potassium 4.1 mEq/L (3.5-5.1) 06/20/17 07:07 Chloride 104 mEq/L (98-107) 06/20/17 07:07 Carbon Dioxide 28.6 mEq/L (21.0-31.0) 06/20/17 07:07 Anion Gap 9.5 (7.0-16.0) 06/20/17 07:07 BUN 12 mg/dL (7-25) 06/20/17 07:07 Creatinine 0.7 mg/dL (0.7-1.3) 06/20/17 07:07 Est GFR ( Amer) > 60.0 ml/min (>90) 06/20/17 07:07 Est GFR (Non-Af Amer) > 60.0 ml/min 06/20/17 07:07 BUN/Creatinine Ratio 17.1 06/20/17 07:07 Glucose 88 mg/dL (70-105) 06/20/17 07:07 POC Glucose 99 MG/DL (70 - 105) 06/20/17 06:33 Calcium 8.9 mg/dL (8.6-10.3) 06/20/17 07:07 Total Bilirubin 0.6 mg/dL (0.3-1.0) 06/20/17 07:07 AST 16 U/L (13-39) 06/20/17 07:07 ALT 10 U/L (7-52) 06/20/17 07:07 Alkaline Phosphatase 132 U/L (34-104) H 06/20/17 07:07 Total Protein 6.2 gm/dL (6.0-8.3) 06/20/17 07:07 Albumin 3.3 gm/dL (4.2-5.5) L 06/20/17 07:07 Globulin 2.9 gm/dL 06/20/17 07:07 Albumin/Globulin Ratio 1.1 (1.0-1.8) 06/20/17 07:07 - Physical Exam Vitals and I&O: Vital Signs Temp 98.2 F 06/20/17 15:15 Pulse 105 06/20/17 15:15 Resp 19 06/20/17 15:15 BP 106/57 06/20/17 15:15 Pulse Ox 95 06/20/17 15:15 Intake & Output 06/19/17 06/20/17 06/20/17 18:59 06:59 18:59 Intake Total 489 676 1620 Balance 900 856 6454 Intake: Oral 763 873 5582 Other: # Voids 4 1 3 # Bowel Movements 1 0 0 Stool Characteristics Soft Soft Active Medications: Current Medications Acetaminophen (Tylenol) 650 mg PO Q4HR PRN PRN Reason: Mild Pain / Temp above 100 Stop: 07/30/17 20:26 Last Admin: 06/08/17 15:16 Dose: 650 mg Al Hydrox/Mg Hydrox/Simethicone (Maalox) 30 ml PO Q4HR PRN PRN Reason: GI DISTRESS Stop: 07/30/17 20:26 Albuterol/Ipratropium (Duoneb Neb) 3 ml HHN Q8HRT PRN PRN Reason: Shortness of Breath Stop: 08/05/17 17:34 Last Admin: 06/08/17 19:13 Dose: 3 ml Clozapine (Clozaril) 150 mg PO DAILY [facility] Stop: 08/20/17 08:59 Divalproex Sodium (Depakote Dr) 250 mg PO Q8HR JOEL PRN Reason: Protocol Stop: 08/16/17 12:59 Last Admin: 06/20/17 13:48 Dose: 250 mg Docusate Sodium (Colace) 100 mg PO BID [facility] Stop: 07/31/17 08:59 Last Admin: 06/20/17 16:57 Dose: 100 mg Insulin Aspart (Novolog Insulin Sliding Scale) 0 units SUBQ 0630 JOEL PRN Reason: Protocol Stop: 07/31/17 06:29 Last Admin: 06/20/17 06:38 Dose: Not Given Metoprolol Tartrate (Lopressor) 25 mg PO HS [facility] Stop: 08/16/17 20:59 Last Admin: 06/19/17 20:46 Dose: 25 mg Mirtazapine (Remeron) 15 mg PO HS [facility] PRN Reason: Protocol Stop: 08/04/17 06:21 Last Admin: 06/19/17 20:47 Dose: 15 mg Miscellaneous (Clinical Monitoring) 1 ea MC PRN PRN PRN Reason: PROTOCOL Stop: 08/11/17 12:18 Multivitamins/Vitamin C (Theragran) 1 tab PO DAILY [facility] Stop: 07/31/17 08:59 Last Admin: 06/20/17 09:49 Dose: Not Given Ondansetron HCl (Zofran Odt) 4 mg PO Q4H PRN PRN Reason: Nausea / Vomiting Stop: 08/19/17 00:17 Last Admin: 06/20/17 01:06 Dose: 4 mg Pantoprazole Sodium (Protonix) 40 mg PO QDAC JOEL Stop: 08/19/17 07:29 Last Admin: 06/20/17 07:01 Dose: 40 mg Simvastatin (Zocor) 20 mg PO HS JOEL PRN Reason: Protocol Stop: 07/30/17 20:59 Last Admin: 06/19/17 20:47 Dose: 20 mg Tramadol HCl (Ultram) 50 mg PO Q8HR PRN PRN Reason: Pain (Moderate) Stop: 07/31/17 19:27 Last Admin: 06/11/17 09:37 Dose: 50 mg General: demented HEENT: NC/AT, anicteric sclerae, throat clear Neck: Supple, No JVD, No thyromegaly, +2 carotid pulse wo bruit, No LAD Lungs: CTAB Cardiovascular: RRR, Normal S1, Normal S2, without murmur Abdomen: soft, non-tender, non-distended Extremities: clear Neurological: no change - Procedures Procedures: Procedures Procedure Code Date GROUP PSYCHOTHERAPY 47389 07/16/15 GROUP PSYCHOTHERAPY GZHZZZZ 07/16/15 INDIVID PSYCHOTHERAP NEC 94.39 09/06/13 OTHER GROUP THERAPY 94.44 05/03/14 RECREATIONAL THERAPY 93.81 08/25/12 Internal Medicine Assmt/Plan - Assessment Assessment: 1.DM. 2.HTN. 3.DEMENTEA. 4.DJD - Plan Plan: CONTINUE ON CURRENT MEDICATION AND DIET. Nutritional Asmnt/Malnutr-PDOC - Dietary Evaluation Malnutrition Findings (Please click <Entered> for more info): Nutritional Asmnt/Malnutrition Start: 06/03/17 12: 18 Text: Status: Complete Freq: Document 06/03/17 12:18 GSUN (Rec: 06/03/17 12:30 GSUN [email or web address]) Nutritional Asmnt/Malnutrition Patient General Information Nutritional Screening Moderate Risk Screening Diagnosis Chronic paranoid schizophrenia with acute exacerbation Pertinent Medical Hx/Surgical Hx DM, HTN, DJD, dementia, chronic back pain Subjective Information 67 year old male from SNF. Pt appeared anxious and delusional. Avg PO intake 38% of past 6 meals, not meeting nutritional needs. Pt is able to self feed, admits feeling hungry, however refuses to eat , stating "I can't eat, I am sacrificing myself... waiting for a miracle" Cadastral Engineer explained to pt several times of importance of nutrition, pt repeatedly responded with above statement. Write was able to obtain pt's food preference for milk and yogurt . No muscle/fat wasting noted. Current Diet Order/ Nutrition Support [facility] soft ground. Pertinent Medications Colace, Novolog, MOM, Remeron, Theragran Pertinent Labs PCO glucose 99-123H since adm Nutritional Hx/Data Height 1.6 m Height (Calculated Centimeters) 160.0 Current Weight (lbs) 59.058 kg Weight (Calculated Kilograms) 59.1 Weight (Calculated Grams) 07574.7 [place] Body Weight 124 Weight Status Approriate GI Symptoms Cultural/Ethnic/Jewish Belief Likes milk and yogurt Skin Integrity/Comment: Mansoor 17. Skin intact. Current %PO Poor (25-49%) Estimated Nutritional Goals BEE in Kcals: Using Current wt Calories/Kcals/Kg CBW 130.2lb/59.2kg Kcals Calculated 1480-1776kcal (25-30kcal/kg) Protein: Using Current wt Protein Calculated 59g (1g/kg) Fluid: ml 1480-1776ml (1ml/kcal) Nutritional Problem 2. Problem Problem Altered nutrition related laboratory values related to Etiology DM aeb Signs/Symptoms: H&P, on Novolog, elevated POC glucose 1. Problem Problem Inadequate oral food beverage intake related to Etiology cognition, personal believes aeb Signs/Symptoms: pt stated "I can't eat, I am sacrificing myself... waiting for a miracle" Intervention/Recommendation Comments 1. Continue with current diet order to promote PO intake. Avg PO intake is inadequate. Pt believes "I can't eat, I am sacrificing myself... waiting for a miracle." Nursing staff to provide supervision and encouragement with meals. 2. Recommend healthshake and yogurt with every meal. 3. Monitor weight due to poor PO itnake. 4. Monitor glucose levels. Recommend [id number] if PO intake improves to meet >75% of estimated nutritional needs . Expected Outcomes/Goals Expected Outcomes/Goals 1. PO intake to meet at least 75% of estimated nutritional needs.
--- NOTE | 2017-06-21 05:16 | Progress Notes ---
DATE: 06/20/2017 Case was discussed with staff of the patient, reviewed records. The patient continues to be talking to himself. Continues to be unpredictable, impulsive, needing redirection. Continues to have poor insight, laughing inappropriately at times, responding to internal stimuli. No side effects to the medication, no sedation, no nausea, no extrapyramidal symptoms. I will be increasing his Clozaril dose to 150 mg a day and we will continue to work with the patient in group therapy, milieu therapy, adjust medication as needed. The patient in the past when he was on Clozaril, who was on a higher dose, was able to tolerate that and that was few months ago. JOB# [id number]
[2017-06-21] MEDS: INSULIN ASPART SLIDING SCALE 100 UNITS/ML UNIT SUBQ SCH (06:27)
[2017-06-21] MEDS: Pantoprazole 40 mg EC Tab PO SCH (06:29)
[2017-06-21] MEDS: Multivitamin Tab PO SCH (09:44)
--- NOTE | 2017-06-21 19:46 | Internal Medicine Prog Note ---
Internal Medicine Subjective - Subjective Service Date: 06/21/17 Patient seen and examined:: with staff (HE IS DOING BETTER,TAKING MEDICATION.) Patient is:: awake, verbal, in bed, confused Per staff patient has:: no adverse event Internal Medicine Objective - Results Result Diagrams: 06/20/17 07:07 06/20/17 07:07 Recent Labs: Laboratory Last Values WBC 10.0 Th/cmm (4.8-10.8) D 06/20/17 07:07 RBC 4.52 Mil/cmm (3.80-5.80) 06/20/17 07:07 Hgb 12.7 gm/dL (12-16) 06/20/17 07:07 Hct 38.4 % (41.0-60) L 06/20/17 07:07 MCV 85.0 fl (80-99) 06/20/17 07:07 MCH 28.0 pg (27.0-31.0) 06/20/17 07:07 MCHC Differential 33.0 pg (28.0-36.0) 06/20/17 07:07 RDW 13.8 % (11.5-20.0) 06/20/17 07:07 Plt Count 352 Th/cmm (150-400) 06/20/17 07:07 MPV 8.5 fl 06/20/17 07:07 Neutrophils % 69.6 % (40.0-80.0) 06/20/17 07:07 Lymphocytes % 20.1 % (20.0-50.0) 06/20/17 07:07 Monocytes % 8.8 % (2.0-10.0) 06/20/17 07:07 Eosinophils % 0.7 % (0.0-5.0) 06/20/17 07:07 Basophils % 0.8 % (0.0-2.0) 06/20/17 07:07 Sodium 138 mEq/L (136-145) 06/20/17 07:07 Potassium 4.1 mEq/L (3.5-5.1) 06/20/17 07:07 Chloride 104 mEq/L (98-107) 06/20/17 07:07 Carbon Dioxide 28.6 mEq/L (21.0-31.0) 06/20/17 07:07 Anion Gap 9.5 (7.0-16.0) 06/20/17 07:07 BUN 12 mg/dL (7-25) 06/20/17 07:07 Creatinine 0.7 mg/dL (0.7-1.3) 06/20/17 07:07 Est GFR ( Amer) > 60.0 ml/min (>90) 06/20/17 07:07 Est GFR (Non-Af Amer) > 60.0 ml/min 06/20/17 07:07 BUN/Creatinine Ratio 17.1 06/20/17 07:07 Glucose 88 mg/dL (70-105) 06/20/17 07:07 POC Glucose 103 MG/DL (70 - 105) 06/21/17 06:23 Calcium 8.9 mg/dL (8.6-10.3) 06/20/17 07:07 Total Bilirubin 0.6 mg/dL (0.3-1.0) 06/20/17 07:07 AST 16 U/L (13-39) 06/20/17 07:07 ALT 10 U/L (7-52) 06/20/17 07:07 Alkaline Phosphatase 132 U/L (34-104) H 06/20/17 07:07 Total Protein 6.2 gm/dL (6.0-8.3) 06/20/17 07:07 Albumin 3.3 gm/dL (4.2-5.5) L 06/20/17 07:07 Globulin 2.9 gm/dL 06/20/17 07:07 Albumin/Globulin Ratio 1.1 (1.0-1.8) 06/20/17 07:07 Valproic Acid 80.4 ug/mL (50.0-100.0) 06/21/17 14:00 - Physical Exam Vitals and I&O: Vital Signs Temp 97.4 F 06/21/17 14:00 Pulse 88 06/21/17 14:00 Resp 20 06/21/17 14:00 BP 108/66 06/21/17 14:00 Pulse Ox 96 06/21/17 14:00 Intake & Output 06/21/17 06/21/17 06/22/17 06:59 18:59 06:59 Intake Total 240 800 Balance 240 800 Intake: Oral 240 800 Other: # Voids 3 3 # Bowel Movements 0 1 Stool Characteristics Soft Active Medications: Current Medications Acetaminophen (Tylenol) 650 mg PO Q4HR PRN PRN Reason: Mild Pain / Temp above 100 Stop: 07/30/17 20:26 Last Admin: 06/08/17 15:16 Dose: 650 mg Al Hydrox/Mg Hydrox/Simethicone (Maalox) 30 ml PO Q4HR PRN PRN Reason: GI DISTRESS Stop: 07/30/17 20:26 Albuterol/Ipratropium (Duoneb Neb) 3 ml HHN Q8HRT PRN PRN Reason: Shortness of Breath Stop: 08/05/17 17:34 Last Admin: 06/08/17 19:13 Dose: 3 ml Clozapine (Clozaril) 150 mg PO DAILY COUNT INCLUDES [facility] Stop: 08/20/17 08:59 Last Admin: 06/21/17 09:44 Dose: 150 mg Divalproex Sodium (Depakote Dr) 250 mg PO Q8HR JOEL PRN Reason: Protocol Stop: 08/16/17 12:59 Last Admin: 06/21/17 13:19 Dose: 250 mg Docusate Sodium (Colace) 100 mg PO BID COUNT INCLUDES [facility] Stop: 07/31/17 08:59 Last Admin: 06/21/17 16:16 Dose: 100 mg Insulin Aspart (Novolog Insulin Sliding Scale) 0 units SUBQ 0630 JOEL PRN Reason: Protocol Stop: 07/31/17 06:29 Last Admin: 06/21/17 06:27 Dose: Not Given Metoprolol Tartrate (Lopressor) 25 mg PO HS COUNT INCLUDES [facility] Stop: 08/16/17 20:59 Last Admin: 06/20/17 21:30 Dose: 25 mg Mirtazapine (Remeron) 15 mg PO HS COUNT INCLUDES [facility] PRN Reason: Protocol Stop: 08/04/17 06:21 Last Admin: 06/20/17 21:31 Dose: 15 mg Miscellaneous (Clinical Monitoring) 1 ea MC PRN PRN PRN Reason: PROTOCOL Stop: 08/11/17 12:18 Multivitamins/Vitamin C (Theragran) 1 tab PO DAILY COUNT INCLUDES [facility] Stop: 07/31/17 08:59 Last Admin: 06/21/17 09:44 Dose: 1 tab Ondansetron HCl (Zofran Odt) 4 mg PO Q4H PRN PRN Reason: Nausea / Vomiting Stop: 08/19/17 00:17 Last Admin: 06/20/17 01:06 Dose: 4 mg Pantoprazole Sodium (Protonix) 40 mg PO QDAC JOEL Stop: 08/19/17 07:29 Last Admin: 06/21/17 06:29 Dose: 40 mg Simvastatin (Zocor) 20 mg PO HS JOEL PRN Reason: Protocol Stop: 07/30/17 20:59 Last Admin: 06/20/17 21:31 Dose: 20 mg Tramadol HCl (Ultram) 50 mg PO Q8HR PRN PRN Reason: Pain (Moderate) Stop: 07/31/17 19:27 Last Admin: 06/11/17 09:37 Dose: 50 mg General: demented HEENT: NC/AT, anicteric sclerae, throat clear Neck: Supple, No JVD, No thyromegaly, +2 carotid pulse wo bruit, No LAD Lungs: CTAB Cardiovascular: RRR, Normal S1, Normal S2, without murmur Abdomen: soft, non-tender, non-distended Extremities: clear Neurological: no change - Procedures Procedures: Procedures Procedure Code Date GROUP PSYCHOTHERAPY 06387 07/16/15 GROUP PSYCHOTHERAPY GZHZZZZ 07/16/15 INDIVID PSYCHOTHERAP NEC 94.39 09/06/13 OTHER GROUP THERAPY 94.44 05/03/14 RECREATIONAL THERAPY 93.81 08/25/12 Internal Medicine Assmt/Plan - Assessment Assessment: 1.DM. 2.HTN. 3.DEMENTEA. 4.DJD - Plan Plan: CONTINUE ON CURRENT MEDICATION AND DIET. Nutritional Asmnt/Malnutr-PDOC - Dietary Evaluation Malnutrition Findings (Please click <Entered> for more info): Nutritional Asmnt/Malnutrition Start: 06/03/17 12: 18 Text: Status: Complete Freq: Document 06/03/17 12:18 GSUN (Rec: 06/03/17 12:30 GSUN [email or web address]) Nutritional Asmnt/Malnutrition Patient General Information Nutritional Screening Moderate Risk Screening Diagnosis Chronic paranoid schizophrenia with acute exacerbation Pertinent Medical Hx/Surgical Hx DM, HTN, DJD, dementia, chronic back pain Subjective Information 67 year old male from SNF. Pt appeared anxious and delusional. Avg PO intake 38% of past 6 meals, not meeting nutritional needs. Pt is able to self feed, admits feeling hungry, however refuses to eat , stating "I can't eat, I am sacrificing myself... waiting for a miracle" Service Cashier explained to pt several times of importance of nutrition, pt repeatedly responded with above statement. Write was able to obtain pt's food preference for milk and yogurt . No muscle/fat wasting noted. Current Diet Order/ Nutrition Support [facility] soft ground. Pertinent Medications Colace, Novolog, MOM, Remeron, Theragran Pertinent Labs PCO glucose 99-123H since adm Nutritional Hx/Data Height 1.6 m Height (Calculated Centimeters) 160.0 Current Weight (lbs) 59.058 kg Weight (Calculated Kilograms) 59.1 Weight (Calculated Grams) 08091.7 [place] Body Weight 124 Weight Status Approriate GI Symptoms Cultural/Ethnic/Protestant Belief Likes milk and yogurt Skin Integrity/Comment: Mansoor 17. Skin intact. Current %PO Poor (25-49%) Estimated Nutritional Goals BEE in Kcals: Using Current wt Calories/Kcals/Kg CBW 130.2lb/59.2kg Kcals Calculated 1480-1776kcal (25-30kcal/kg) Protein: Using Current wt Protein Calculated 59g (1g/kg) Fluid: ml 1480-1776ml (1ml/kcal) Nutritional Problem 2. Problem Problem Altered nutrition related laboratory values related to Etiology DM aeb Signs/Symptoms: H&P, on Novolog, elevated POC glucose 1. Problem Problem Inadequate oral food beverage intake related to Etiology cognition, personal believes aeb Signs/Symptoms: pt stated "I can't eat, I am sacrificing myself... waiting for a miracle" Intervention/Recommendation Comments 1. Continue with current diet order to promote PO intake. Avg PO intake is inadequate. Pt believes "I can't eat, I am sacrificing myself... waiting for a miracle." Nursing staff to provide supervision and encouragement with meals. 2. Recommend healthshake and yogurt with every meal. 3. Monitor weight due to poor PO itnake. 4. Monitor glucose levels. Recommend [id number] if PO intake improves to meet >75% of estimated nutritional needs . Expected Outcomes/Goals Expected Outcomes/Goals 1. PO intake to meet at least 75% of estimated nutritional needs.
--- NOTE | 2017-06-22 02:23 | Progress Notes ---
DATE: 06/21/2017 Case was discussed with staff of the patient, continues to be internally preoccupied. His pulse rate was high yesterday at 2014. Today, he is calmer in general. Sleeping better, eating better. Continues to be internally preoccupied. Unable to make safe plan for self-care. No side effects with the medication, no sedation, no nausea, and no extrapyramidal symptoms. I did increase his Clozaril to 150 mg twice a day and he is on Depakote as well as checking his Depakote level. We will continue to work with the patient in group therapy, milieu therapy, adjust the medication as needed. JOB# [id number]
[2017-06-22] MEDS: INSULIN ASPART SLIDING SCALE 100 UNITS/ML UNIT SUBQ SCH (06:23)
[2017-06-22] MEDS: Pantoprazole 40 mg EC Tab PO SCH (06:29)
[2017-06-22] MEDS: Multivitamin Tab PO SCH (08:13)
--- NOTE | 2017-06-22 10:26 | Internal Medicine Prog Note ---
Internal Medicine Subjective - Subjective Service Date: 06/22/17 Patient seen and examined:: without staff Patient is:: awake, verbal, in bed, confused Per staff patient has:: no adverse event Internal Medicine Objective - Results Result Diagrams: 06/20/17 07:07 06/20/17 07:07 Recent Labs: Laboratory Last Values WBC 10.0 Th/cmm (4.8-10.8) D 06/20/17 07:07 RBC 4.52 Mil/cmm (3.80-5.80) 06/20/17 07:07 Hgb 12.7 gm/dL (12-16) 06/20/17 07:07 Hct 38.4 % (41.0-60) L 06/20/17 07:07 MCV 85.0 fl (80-99) 06/20/17 07:07 MCH 28.0 pg (27.0-31.0) 06/20/17 07:07 MCHC Differential 33.0 pg (28.0-36.0) 06/20/17 07:07 RDW 13.8 % (11.5-20.0) 06/20/17 07:07 Plt Count 352 Th/cmm (150-400) 06/20/17 07:07 MPV 8.5 fl 06/20/17 07:07 Neutrophils % 69.6 % (40.0-80.0) 06/20/17 07:07 Lymphocytes % 20.1 % (20.0-50.0) 06/20/17 07:07 Monocytes % 8.8 % (2.0-10.0) 06/20/17 07:07 Eosinophils % 0.7 % (0.0-5.0) 06/20/17 07:07 Basophils % 0.8 % (0.0-2.0) 06/20/17 07:07 Sodium 138 mEq/L (136-145) 06/20/17 07:07 Potassium 4.1 mEq/L (3.5-5.1) 06/20/17 07:07 Chloride 104 mEq/L (98-107) 06/20/17 07:07 Carbon Dioxide 28.6 mEq/L (21.0-31.0) 06/20/17 07:07 Anion Gap 9.5 (7.0-16.0) 06/20/17 07:07 BUN 12 mg/dL (7-25) 06/20/17 07:07 Creatinine 0.7 mg/dL (0.7-1.3) 06/20/17 07:07 Est GFR ( Amer) > 60.0 ml/min (>90) 06/20/17 07:07 Est GFR (Non-Af Amer) > 60.0 ml/min 06/20/17 07:07 BUN/Creatinine Ratio 17.1 06/20/17 07:07 Glucose 88 mg/dL (70-105) 06/20/17 07:07 POC Glucose 96 MG/DL (70 - 105) 06/22/17 06:20 Calcium 8.9 mg/dL (8.6-10.3) 06/20/17 07:07 Total Bilirubin 0.6 mg/dL (0.3-1.0) 06/20/17 07:07 AST 16 U/L (13-39) 06/20/17 07:07 ALT 10 U/L (7-52) 06/20/17 07:07 Alkaline Phosphatase 132 U/L (34-104) H 06/20/17 07:07 Total Protein 6.2 gm/dL (6.0-8.3) 06/20/17 07:07 Albumin 3.3 gm/dL (4.2-5.5) L 06/20/17 07:07 Globulin 2.9 gm/dL 06/20/17 07:07 Albumin/Globulin Ratio 1.1 (1.0-1.8) 06/20/17 07:07 Valproic Acid 80.4 ug/mL (50.0-100.0) 06/21/17 14:00 - Physical Exam Vitals and I&O: Vital Signs Temp 97 F 06/22/17 06:32 Pulse 112 06/22/17 07:22 Resp 20 06/22/17 07:22 BP 152/86 06/22/17 06:32 Pulse Ox 98 06/22/17 07:22 Intake & Output 06/21/17 06/22/17 06/22/17 18:59 06:59 18:59 Intake Total 800 120 Balance 800 120 Intake: Oral 800 120 Other: # Voids 3 3 # Bowel Movements 1 Active Medications: Current Medications Acetaminophen (Tylenol) 650 mg PO Q4HR PRN PRN Reason: Mild Pain / Temp above 100 Stop: 07/30/17 20:26 Last Admin: 06/08/17 15:16 Dose: 650 mg Al Hydrox/Mg Hydrox/Simethicone (Maalox) 30 ml PO Q4HR PRN PRN Reason: GI DISTRESS Stop: 07/30/17 20:26 Albuterol/Ipratropium (Duoneb Neb) 3 ml HHN Q8HRT PRN PRN Reason: Shortness of Breath Stop: 08/05/17 17:34 Last Admin: 06/08/17 19:13 Dose: 3 ml Clozapine 100 mg/ Clozapine 75 (mg) 175 mg PO DAILY JOEL Stop: 08/21/17 09:29 Divalproex Sodium (Depakote Dr) 250 mg PO Q8HR JOEL PRN Reason: Protocol Stop: 08/16/17 12:59 Last Admin: 06/22/17 06:00 Dose: 250 mg Docusate Sodium (Colace) 100 mg PO BID [facility] Stop: 07/31/17 08:59 Last Admin: 06/22/17 08:13 Dose: 100 mg Insulin Aspart (Novolog Insulin Sliding Scale) 0 units SUBQ 0630 JOEL PRN Reason: Protocol Stop: 07/31/17 06:29 Last Admin: 06/22/17 06:23 Dose: Not Given Metoprolol Tartrate (Lopressor) 25 mg PO HS [facility] Stop: 08/16/17 20:59 Last Admin: 06/21/17 20:36 Dose: 25 mg Mirtazapine (Remeron) 15 mg PO HS JOEL PRN Reason: Protocol Stop: 08/04/17 06:21 Last Admin: 06/21/17 20:39 Dose: 15 mg Miscellaneous (Clinical Monitoring) 1 ea MC PRN PRN PRN Reason: PROTOCOL Stop: 08/11/17 12:18 Multivitamins/Vitamin C (Theragran) 1 tab PO DAILY [facility] Stop: 07/31/17 08:59 Last Admin: 06/22/17 08:13 Dose: 1 tab Ondansetron HCl (Zofran Odt) 4 mg PO Q4H PRN PRN Reason: Nausea / Vomiting Stop: 08/19/17 00:17 Last Admin: 06/20/17 01:06 Dose: 4 mg Pantoprazole Sodium (Protonix) 40 mg PO QDAC JOEL Stop: 08/19/17 07:29 Last Admin: 06/22/17 06:29 Dose: 40 mg Simvastatin (Zocor) 20 mg PO HS JOEL PRN Reason: Protocol Stop: 07/30/17 20:59 Last Admin: 06/21/17 20:40 Dose: 20 mg Tramadol HCl (Ultram) 50 mg PO Q8HR PRN PRN Reason: Pain (Moderate) Stop: 07/31/17 19:27 Last Admin: 06/11/17 09:37 Dose: 50 mg General: demented HEENT: NC/AT, anicteric sclerae, throat clear Neck: Supple, No JVD, No thyromegaly, +2 carotid pulse wo bruit, No LAD Lungs: CTAB Cardiovascular: RRR, Normal S1, Normal S2, without murmur Abdomen: soft, non-tender, non-distended Extremities: clear Neurological: no change - Procedures Procedures: Procedures Procedure Code Date GROUP PSYCHOTHERAPY 67397 07/16/15 GROUP PSYCHOTHERAPY GZHZZZZ 07/16/15 INDIVID PSYCHOTHERAP NEC 94.39 09/06/13 OTHER GROUP THERAPY 94.44 05/03/14 RECREATIONAL THERAPY 93.81 08/25/12 Internal Medicine Assmt/Plan - Assessment Assessment: 1.DM. 2.HTN. 3.DEMENTEA. 4.DJD - Plan Plan: CONTINUE ON CURRENT MEDICATION AND DIET. Nutritional Asmnt/Malnutr-PDOC - Dietary Evaluation Malnutrition Findings (Please click <Entered> for more info): Nutritional Asmnt/Malnutrition Start: 06/03/17 12: 18 Text: Status: Complete Freq: Document 06/03/17 12:18 GSUN (Rec: 06/03/17 12:30 GSUN [id number]) Nutritional Asmnt/Malnutrition Patient General Information Nutritional Screening Moderate Risk Screening Diagnosis Chronic paranoid schizophrenia with acute exacerbation Pertinent Medical Hx/Surgical Hx DM, HTN, DJD, dementia, chronic back pain Subjective Information 67 year old male from SNF. Pt appeared anxious and delusional. Avg PO intake 38% of past 6 meals, not meeting nutritional needs. Pt is able to self feed, admits feeling hungry, however refuses to eat , stating "I can't eat, I am sacrificing myself... waiting for a miracle" Technical Advisor explained to pt several times of importance of nutrition, pt repeatedly responded with above statement. Write was able to obtain pt's food preference for milk and yogurt . No muscle/fat wasting noted. Current Diet Order/ Nutrition Support [facility] soft ground. Pertinent Medications Colace, Novolog, MOM, Remeron, Theragran Pertinent Labs PCO glucose 99-123H since adm Nutritional Hx/Data Height 1.6 m Height (Calculated Centimeters) 160.0 Current Weight (lbs) 59.058 kg Weight (Calculated Kilograms) 59.1 Weight (Calculated Grams) 92226.7 [place] Body Weight 124 Weight Status Approriate GI Symptoms Cultural/Ethnic/Catholic Belief Likes milk and yogurt Skin Integrity/Comment: Mansoor 17. Skin intact. Current %PO Poor (25-49%) Estimated Nutritional Goals BEE in Kcals: Using Current wt Calories/Kcals/Kg CBW 130.2lb/59.2kg Kcals Calculated 1480-1776kcal (25-30kcal/kg) Protein: Using Current wt Protein Calculated 59g (1g/kg) Fluid: ml 1480-1776ml (1ml/kcal) Nutritional Problem 2. Problem Problem Altered nutrition related laboratory values related to Etiology DM aeb Signs/Symptoms: H&P, on Novolog, elevated POC glucose 1. Problem Problem Inadequate oral food beverage intake related to Etiology cognition, personal believes aeb Signs/Symptoms: pt stated "I can't eat, I am sacrificing myself... waiting for a miracle" Intervention/Recommendation Comments 1. Continue with current diet order to promote PO intake. Avg PO intake is inadequate. Pt believes "I can't eat, I am sacrificing myself... waiting for a miracle." Nursing staff to provide supervision and encouragement with meals. 2. Recommend healthshake and yogurt with every meal. 3. Monitor weight due to poor PO itnake. 4. Monitor glucose levels. Recommend [id number] if PO intake improves to meet >75% of estimated nutritional needs . Expected Outcomes/Goals Expected Outcomes/Goals 1. PO intake to meet at least 75% of estimated nutritional needs.
[2017-06-22] MEDS: cloZAPine 100 MG, cloZAPine 75 MG PO SCH (11:32)
--- NOTE | 2017-06-22 23:21 | Progress Notes ---
DATE: 06/22/2017 Case was discussed with staff of the patient, reviewed records. The patient continues to do the same. Continues to be unpredictable, impulsive, needing redirection, responding to internal stimuli. Continues to have poor insight. I initiated Depakote few days ago to stabilize his mood and his current dose of Clozaril is 150. He used to be on a higher dose. I will be increasing the dose to 175 mg a day and he is no longer having tachycardia, his pulse is 106. No side effects with the medication, no sedation, no nausea, no extrapyramidal symptoms. We will continue to work with the patient in group therapy and milieu therapy, adjust the medication as needed. JOB# [id number]
[2017-06-23] MEDS: INSULIN ASPART SLIDING SCALE 100 UNITS/ML UNIT SUBQ SCH (06:37)
[2017-06-23] MEDS: Pantoprazole 40 mg EC Tab PO SCH (06:37)
[2017-06-23] MEDS: cloZAPine 100 MG, cloZAPine 75 MG PO SCH (09:02)
[2017-06-23] MEDS: Multivitamin Tab PO SCH (09:03)
--- NOTE | 2017-06-23 20:20 | Internal Medicine Prog Note ---
Internal Medicine Subjective - Subjective Service Date: 06/23/17 Patient seen and examined:: with staff Patient is:: awake, verbal, in bed, confused Per staff patient has:: no adverse event Internal Medicine Objective - Results Result Diagrams: 06/20/17 07:07 06/20/17 07:07 Recent Labs: Laboratory Last Values WBC 10.0 Th/cmm (4.8-10.8) D 06/20/17 07:07 RBC 4.52 Mil/cmm (3.80-5.80) 06/20/17 07:07 Hgb 12.7 gm/dL (12-16) 06/20/17 07:07 Hct 38.4 % (41.0-60) L 06/20/17 07:07 MCV 85.0 fl (80-99) 06/20/17 07:07 MCH 28.0 pg (27.0-31.0) 06/20/17 07:07 MCHC Differential 33.0 pg (28.0-36.0) 06/20/17 07:07 RDW 13.8 % (11.5-20.0) 06/20/17 07:07 Plt Count 352 Th/cmm (150-400) 06/20/17 07:07 MPV 8.5 fl 06/20/17 07:07 Neutrophils % 69.6 % (40.0-80.0) 06/20/17 07:07 Lymphocytes % 20.1 % (20.0-50.0) 06/20/17 07:07 Monocytes % 8.8 % (2.0-10.0) 06/20/17 07:07 Eosinophils % 0.7 % (0.0-5.0) 06/20/17 07:07 Basophils % 0.8 % (0.0-2.0) 06/20/17 07:07 Sodium 138 mEq/L (136-145) 06/20/17 07:07 Potassium 4.1 mEq/L (3.5-5.1) 06/20/17 07:07 Chloride 104 mEq/L (98-107) 06/20/17 07:07 Carbon Dioxide 28.6 mEq/L (21.0-31.0) 06/20/17 07:07 Anion Gap 9.5 (7.0-16.0) 06/20/17 07:07 BUN 12 mg/dL (7-25) 06/20/17 07:07 Creatinine 0.7 mg/dL (0.7-1.3) 06/20/17 07:07 Est GFR ( Amer) > 60.0 ml/min (>90) 06/20/17 07:07 Est GFR (Non-Af Amer) > 60.0 ml/min 06/20/17 07:07 BUN/Creatinine Ratio 17.1 06/20/17 07:07 Glucose 88 mg/dL (70-105) 06/20/17 07:07 POC Glucose 101 MG/DL (70 - 105) 06/23/17 06:04 Calcium 8.9 mg/dL (8.6-10.3) 06/20/17 07:07 Total Bilirubin 0.6 mg/dL (0.3-1.0) 06/20/17 07:07 AST 16 U/L (13-39) 06/20/17 07:07 ALT 10 U/L (7-52) 06/20/17 07:07 Alkaline Phosphatase 132 U/L (34-104) H 06/20/17 07:07 Total Protein 6.2 gm/dL (6.0-8.3) 06/20/17 07:07 Albumin 3.3 gm/dL (4.2-5.5) L 06/20/17 07:07 Globulin 2.9 gm/dL 06/20/17 07:07 Albumin/Globulin Ratio 1.1 (1.0-1.8) 06/20/17 07:07 Valproic Acid 80.4 ug/mL (50.0-100.0) 06/21/17 14:00 - Physical Exam Vitals and I&O: Vital Signs Temp 97.6 F 06/23/17 14:00 Pulse 129 06/23/17 19:51 Resp 20 06/23/17 19:51 BP 116/70 06/23/17 14:00 Pulse Ox 99 06/23/17 19:51 Intake & Output 06/23/17 06/23/17 06/24/17 06:59 18:59 06:59 Intake Total 120 1200 Balance 120 1200 Intake: Oral 120 1200 Other: # Voids 3 # Bowel Movements 1 Stool Characteristics Formed Active Medications: Current Medications Acetaminophen (Tylenol) 650 mg PO Q4HR PRN PRN Reason: Mild Pain / Temp above 100 Stop: 07/30/17 20:26 Last Admin: 06/08/17 15:16 Dose: 650 mg Al Hydrox/Mg Hydrox/Simethicone (Maalox) 30 ml PO Q4HR PRN PRN Reason: GI DISTRESS Stop: 07/30/17 20:26 Albuterol/Ipratropium (Duoneb Neb) 3 ml HHN Q8HRT PRN PRN Reason: Shortness of Breath Stop: 08/05/17 17:34 Last Admin: 06/08/17 19:13 Dose: 3 ml Clozapine 100 mg/ Clozapine 75 (mg) 175 mg PO DAILY [facility] Stop: 08/21/17 09:29 Last Admin: 06/23/17 09:02 Dose: 175 mg Divalproex Sodium (Depakote Dr) 250 mg PO Q8HR JOEL PRN Reason: Protocol Stop: 08/16/17 12:59 Last Admin: 06/23/17 13:10 Dose: 250 mg Docusate Sodium (Colace) 100 mg PO BID [facility] Stop: 07/31/17 08:59 Last Admin: 06/23/17 16:30 Dose: 100 mg Insulin Aspart (Novolog Insulin Sliding Scale) 0 units SUBQ 0630 JOEL PRN Reason: Protocol Stop: 07/31/17 06:29 Last Admin: 06/23/17 06:37 Dose: Not Given Metoprolol Tartrate (Lopressor) 25 mg PO HS [facility] Stop: 08/16/17 20:59 Last Admin: 06/22/17 21:06 Dose: 25 mg Mirtazapine (Remeron) 15 mg PO HS [facility] PRN Reason: Protocol Stop: 08/04/17 06:21 Last Admin: 06/22/17 21:05 Dose: 15 mg Miscellaneous (Clinical Monitoring) 1 ea MC PRN PRN PRN Reason: PROTOCOL Stop: 08/11/17 12:18 Multivitamins/Vitamin C (Theragran) 1 tab PO DAILY [facility] Stop: 07/31/17 08:59 Last Admin: 06/23/17 09:03 Dose: 1 tab Ondansetron HCl (Zofran Odt) 4 mg PO Q4H PRN PRN Reason: Nausea / Vomiting Stop: 08/19/17 00:17 Last Admin: 06/20/17 01:06 Dose: 4 mg Pantoprazole Sodium (Protonix) 40 mg PO QDAC JOEL Stop: 08/19/17 07:29 Last Admin: 06/23/17 06:37 Dose: 40 mg Simvastatin (Zocor) 20 mg PO HS JOEL PRN Reason: Protocol Stop: 07/30/17 20:59 Last Admin: 06/22/17 21:06 Dose: 20 mg Tramadol HCl (Ultram) 50 mg PO Q8HR PRN PRN Reason: Pain (Moderate) Stop: 07/31/17 19:27 Last Admin: 06/11/17 09:37 Dose: 50 mg General: demented HEENT: NC/AT, anicteric sclerae, throat clear Neck: Supple, No JVD, No thyromegaly, +2 carotid pulse wo bruit, No LAD Lungs: CTAB Cardiovascular: RRR, Normal S1, Normal S2, without murmur Abdomen: soft, non-tender, non-distended Extremities: clear Neurological: no change - Procedures Procedures: Procedures Procedure Code Date GROUP PSYCHOTHERAPY 73226 07/16/15 GROUP PSYCHOTHERAPY [id number] 07/16/15 INDIVID PSYCHOTHERAP NEC 94.39 09/06/13 OTHER GROUP THERAPY 94.44 05/03/14 RECREATIONAL THERAPY 93.81 08/25/12 Internal Medicine Assmt/Plan - Assessment Assessment: 1.DM. 2.HTN. 3.DEMENTEA. 4.DJD - Plan Plan: CONTINUE ON CURRENT MEDICATION AND DIET. Nutritional Asmnt/Malnutr-PDOC - Dietary Evaluation Malnutrition Findings (Please click <Entered> for more info): Nutritional Asmnt/Malnutrition Start: 06/03/17 12: 18 Text: Status: Complete Freq: Document 06/03/17 12:18 GSUN (Rec: 06/03/17 12:30 GSUN [id number]) Nutritional Asmnt/Malnutrition Patient General Information Nutritional Screening Moderate Risk Screening Diagnosis Chronic paranoid schizophrenia with acute exacerbation Pertinent Medical Hx/Surgical Hx DM, HTN, DJD, dementia, chronic back pain Subjective Information 67 year old male from SNF. Pt appeared anxious and delusional. Avg PO intake 38% of past 6 meals, not meeting nutritional needs. Pt is able to self feed, admits feeling hungry, however refuses to eat , stating "I can't eat, I am sacrificing myself... waiting for a miracle" Presser Machine explained to pt several times of importance of nutrition, pt repeatedly responded with above statement. Write was able to obtain pt's food preference for milk and yogurt . No muscle/fat wasting noted. Current Diet Order/ Nutrition Support [facility] soft ground. Pertinent Medications Colace, Novolog, MOM, Remeron, Theragran Pertinent Labs PCO glucose 99-123H since adm Nutritional Hx/Data Height 1.6 m Height (Calculated Centimeters) 160.0 Current Weight (lbs) 59.058 kg Weight (Calculated Kilograms) 59.1 Weight (Calculated Grams) 80435.7 [place] Body Weight 124 Weight Status Approriate GI Symptoms Cultural/Ethnic/Mosque Belief Likes milk and yogurt Skin Integrity/Comment: Mansoor 17. Skin intact. Current %PO Poor (25-49%) Estimated Nutritional Goals BEE in Kcals: Using Current wt Calories/Kcals/Kg CBW 130.2lb/59.2kg Kcals Calculated 1480-1776kcal (25-30kcal/kg) Protein: Using Current wt Protein Calculated 59g (1g/kg) Fluid: ml 1480-1776ml (1ml/kcal) Nutritional Problem 2. Problem Problem Altered nutrition related laboratory values related to Etiology DM aeb Signs/Symptoms: H&P, on Novolog, elevated POC glucose 1. Problem Problem Inadequate oral food beverage intake related to Etiology cognition, personal believes aeb Signs/Symptoms: pt stated "I can't eat, I am sacrificing myself... waiting for a miracle" Intervention/Recommendation Comments 1. Continue with current diet order to promote PO intake. Avg PO intake is inadequate. Pt believes "I can't eat, I am sacrificing myself... waiting for a miracle." Nursing staff to provide supervision and encouragement with meals. 2. Recommend healthshake and yogurt with every meal. 3. Monitor weight due to poor PO itnake. 4. Monitor glucose levels. Recommend [id number] if PO intake improves to meet >75% of estimated nutritional needs . Expected Outcomes/Goals Expected Outcomes/Goals 1. PO intake to meet at least 75% of estimated nutritional needs.
--- NOTE | 2017-06-24 00:12 | Progress Notes ---
DATE: 06/23/2017 Case was discussed with staff of the patient. Staff reports that this patient is improving. He is less psychotic. He is responding better to redirection. Sleeping better, eating better. No side effects with the medication, no sedation, no nausea, no extrapyramidal symptoms and tolerating increasing Klonopin to 175 mg yesterday. I will continue working on discharge planning as well. He would be going to ____ when he is ready. I will continue to work with the patient in group therapy, milieu therapy, and adjust medication as needed. JOB# [id number]
[2017-06-24] MEDS: Pantoprazole 40 mg EC Tab PO SCH (06:41)
[2017-06-24] MEDS: INSULIN ASPART SLIDING SCALE 100 UNITS/ML UNIT SUBQ SCH (06:46)
[2017-06-24] MEDS: Multivitamin Tab PO SCH (08:20)
[2017-06-24] MEDS: cloZAPine 100 MG, cloZAPine 75 MG PO SCH (08:20)
--- NOTE | 2017-06-24 12:05 | Discharge Summary ---
DATE OF DISCHARGE: 06/24/2017 DISCHARGE DATE: 06/24/2017 IDENTIFYING INFORMATION: The patient is a 67-year-old male. CHIEF COMPLAINT: The patient was psychotic. HISTORY OF PRESENT ILLNESS: The patient was sent from [place] because of agitation and psychosis. The patient was a poor historian. He believes he was psychotic, delusional. The patient was responding to internal stimuli. He was hearing voices and so believes he was having a heart attack, unable to participate in a meaningful conversation, he is a well-known case, we have seen him before many times because of his condition. He has multiple prior admissions to this facility for similar reason. The patient was actually admitted to the staff from the medical floor and he was originally here and then has to be transferred there because of the seizure. COURSE IN THE HOSPITAL: The patient allergic to FLUPHENAZINE and TRIFLUOPERAZINE. First, we tried on Seroquel, increased the dose but that did not help him. ____ that worked, so I put him back ____ used to be on, increased the dose to 175 mg day, also added Depakote because of his mood swings and irritability 250 mg 3 times a day. The patient progressively got better. He was continued with insulin, metoprolol, and Remeron 15 mg at bedtime, multivitamins and Zofran as needed, Protonix, simvastatin on tramadol. The patient progressively got better. He was calmer. He was no longer delusional. I believe that he has a heart attack. He was sleeping well, eating well. He was accepted to go to [place], as he improved. He was no longer acting psychotic or delusional. He was sleeping well, eating well. We felt he could be discharged to a lesser level of care. FINAL DIAGNOSIS: AXIS I: Chronic paranoid schizophrenia with acute exacerbation. MEDICAL DIAGNOSES: Diabetes mellitus, seizure, hyperlipidemia, asthma, hypertension, GERD, chronic pain. The patient will be discharged to [facility]. The patient will follow up with the psychiatrist, primary care physician and a therapist there. EXPECTED OUTCOME: Stable if the patient complies with the above. JOB# [id number]
== END 2017-06-24 13:45 | DRG 885 ==
LOC: GERO 16:49 → UNDOADMIN 16:49 → GERO 06-01 16:42
PROVIDERS: ADMIT Psychiatry & Neurology Psychiatry; ATTEND Psychiatry & Neurology Psychiatry
DX: F20.0 Paranoid schizophrenia (principal); F03.90 Unspecified dementia, unspecified severity, without behavioral disturbance, psychotic disturbance, mood disturbance, and anxiety; R56.9 Unspecified convulsions; I10 Essential (primary) hypertension; E11.9 Type 2 diabetes mellitus without complications; E78.5 Hyperlipidemia, unspecified; M54.9 Dorsalgia, unspecified; M19.90 Unspecified osteoarthritis, unspecified site; G89.29 Other chronic pain; J45.909 Unspecified asthma, uncomplicated; K21.9 Gastro-esophageal reflux disease without esophagitis; Z88.8 Allergy status to other drugs, medicaments and biological substances
CPT/HCPCS: 36415-UA; 80053-TC; 80164-TC; 82948-90; 85025-TC; 90899; 94640; 94760; G0410; J1200; J1630; J1815; J2060; Q0162; Z7610

== ENCOUNTER 2017-11-10 16:12 | Inpatient (IN) | payer MEDICARE, MEDICAID ==
--- NOTE | 2017-11-10 16:29 | ED Physician Chart ---
ED Chief Complaint/HPI - Patient Information Date Seen:: 11/10/17 Time Seen:: 16:20 Chief Complaint:: Agitation History of Present Illness:: onset x 3 days of agitation and combative behavior; no report of SIs, trauma, H/ As, neck pain, C/P, SOB, cough, Abd. Pain, A/N/V/D/C, fever, chills, or urinary s/s Allergies:: Allergies Allergy/AdvReac Type Severity Reaction Status Date / Time fluphenazine Allergy Verified 05/26/17 15:29 trifluoperazine Allergy Verified 05/26/17 15:29 [From Stelazine] Historian:: Patient, EMS Review:: Nurse's Note Reviewed, Old Chart Reviewed, EMS run form Reviewed ED Review of Systems - Review of Systems General/Constitutional: No fever, No chills, No weight loss, No weakness, No diaphoresis, No edema, No loss of appetite Skin: No skin lesions, No rash, No bruising Head: No headache, No light-headedness Eyes: No loss of vision, No pain, No diplopia ENT: No earache, No nasal drainage, No sore throat, No tinnitus Neck: No neck pain, No swelling, No thyromegaly, No stiffness, No mass noted Cardio Vascular: No chest pain, No palpitations, No PND, No orthopnea, No edema Pulmonary: No SOB, No cough, No sputum, No wheezing GI: No nausea, No vomiting, No diarrhea, No pain, No melena, No hematochezia, No constipation, No hematemesis G/U: No dysuria, No frequency, No hematuria, No nacturia Musculoskeletal: No bone or joint pain, No back pain, No muscle pain Endocrine: Polyuria, Polydipsia Psychiatric: No prior psych history, No depression, No anxiety, No suicidal ideation, No homicidal ideation, Auditory hallucination, No visual hallucination Hematopoietic: No bruising, No lymphadenopathy Allergic/Immuno: No urticaria, No angioedema Neurological: No syncope, No focal symptoms, No weakness, No paresthesia, No headache, No seizure, No dizziness, No confusion, No vertigo ED Past Medical History - Past Medical History Obtainable: Yes Past Medical History: HTN, DM, CVA/TIA, Dyslipidemia, PUD/GERD, Arthritis, Dementia Family History: Diabetes Melitus, HTN Social History: Single, Care Facility Surgical History: None Psychiatricy History: Depression, Schizophrenia, Bipolar, Dementia Medication: Reviewed Family Medical History - Family Member Mother History Unknown: Yes Ethnicity: Unknown Living Status: Unknown Hx Family Coronary Artery Disease: (NONE) Hx Family Congestive Heart Failure: (NONE) ED Physical Exam - Physical Examination General/Constitutional: Awake, Well-developed, well-nourished, Alert, No distress, GCS 15, Non-toxic appearing, Ambulatory Head: Atraumatic Eyes: Lids, conjuctiva normal, PERRL, EOMI Skin: Nl inspection, No rash, No skin lesions, No ecchymosis, Well hydrated, No lymphadenopathy ENMT: External ears, nose nl, TM canals nl, Nasal exam nl, Lips, teeth, gums nl , Oropharynx nl, Tonsils nl Neck: Nontender, Full ROM w/o pain, No JVD, No nuchal rigidity, No bruit, No mass, No stridor Respiratory: Nl effort/Exclusion, Clear to Auscultation, No Wheeze/Rhonchi/Rales Cardio Vascular: RRR, No murmur, gallop, rubs, NL S1 S2, Carotid/Femoral/Distal pulses equal bilaterally GI: No tenderness/rebounding/guarding, No organomegaly, No hernia, Normal BS's, Nondistended, No mass/bruits, No McBurney tenderness : No CVA tenderness Extremities: No tenderness or effusion, Full ROM, normal strength in all extremities, No edema, Normal digits & nails Neuro/Psych: Alert/oriented, DTR's symmetric, Normal sensory exam, Normal motor strength, Judgement/insight normal, Mood normal, Normal gait, No focal deficits Other Neuro/Psych comments:: + Psychomotor Agitation; no SIs; Mood/Affect: Labile Misc: Normal back, No paraspinal tenderness ED Labs/Radiology/EKG Results - Lab Results Comments:: unremarkable - EKG Interpretations EKG Time:: 16:49 Rate & Rhythm: 113; ST Comments:: non-specific st-t changes ED Septic Shock - . Is Septic Shock (SBP<90, OR Lactate>4 mmol\L) present?: No ED Reassessment (Disposition) - Reassessment Reassessment Condition:: Improved - Diagnosis Diagnosis:: Agitation; Bipolar Disorder; - Aftercare/Follow up Instructions Aftercare/Follow-Up Instructions:: Counseled pt regarding lab results/diagnosis & need follow up, Counseled pt & family regarding lab results/diagnosis & need follow up - Patient Disposition Discharge/Transfer:: Acute Care w/in this hosp Admitted to:: [facility] Condition at Disposition:: Stable, Improved
[2017-11-10 16:45] LABS: % BASOPHILS 0.4 % (0.0-2.0); % EOSINOPHILS 4.2 % (0.0-5.0); % LYMPHOCYTES 31.3 % (20.0-50.0); % MONOCYTES 8.6 % (2.0-10.0); % NEUTROPHILS 55.5 % (40.0-80.0); EOSINOPHILE ABSOLUTE 0.2 Th/cmm (0.1-0.4); HEMATOCRIT 40.2 % (41.0-60); HEMOGLOBIN 13.1 gm/dL (12-16); LYMPHOCYTE ABSOLUTE 1.7 Th/cmm (1.5-3.0); MEAN CORPUSCULAR HEMOGLOBIN 27.3 pg (27.0-31.0); MEAN CORPUSCULAR HGB CONC 32.5 pg (28.0-36.0); MONOCYTE ABSOLUTE 0.5 Th/cmm (0.3-1.0); RED BLOOD COUNT 4.78 Mil/cmm (3.80-5.80); RED CELL DISTRIBUTION WIDTH 15.8 % (11.5-20.0)
[2017-11-10 16:47] LABS: PLATELET COUNT 276 Th/cmm (150-400); WHITE BLOOD COUNT 5.4 Th/cmm (4.8-10.8)
[2017-11-10 17:03] LABS: ACETAMINOPHEN < 10.0 ug/mL (10.0-30.0); ALB/GLOB RATIO 1.7 (1.0-1.8); ALBUMIN 4.2 gm/dL (4.2-5.5); ALKALINE PHOSPHATASE 62 U/L (34-104); ANION GAP 10.8 (7.0-16.0); BILIRUBIN,TOTAL 0.3 mg/dL (0.3-1.0); BUN - UREA NITROGEN 18 mg/dL (7-25); CALCIUM SERUM 9.5 mg/dL (8.6-10.3); CARBON DIOXIDE 27.6 mEq/L (21.0-31.0); CHLORIDE 102 mEq/L (98-107); CHOLESTEROL 157 mg/dL (<200); GFR AFRICAN-AMERICAN > 60.0 ml/min (>90); GFR NON AFRICAN-AMERICAN > 60.0 ml/min; GLUCOSE 115 mg/dL (70-105); HDL -HIGH DENSITY LIPOPROTEIN 58 mg/dL (23-92); POTASSIUM SERUM 4.4 mEq/L (3.5-5.1); SGOT 18 U/L (13-39); SGPT/ALT 11 U/L (7-52); SODIUM SERUM 136 mEq/L (136-145); TOTAL PROTEIN,SERUM 6.7 gm/dL (6.0-8.3); TRIGLYCERIDES 108 mg/dL (<150)
[2017-11-10 17:09] LABS: SALICYLATES (ASPIRIN) < 25.0 mg/L (30.0-100.0)
[2017-11-10 18:18] LABS: URINE MICROSCOPIC INDICATED? YES; URINE SOURCE CLEAN C
[2017-11-10 18:22] LABS: URINE BILIRUBIN NEGATIVE (NEGATIVE); URINE BLOOD NEGATIVE (NEGATIVE); URINE GLUCOSE (UA) NEGATIVE (NEGATIVE); URINE KETONE NEGATIVE (NEGATIVE); URINE LEUKOCYTE ESTERASE NEGATIVE (NEGATIVE); URINE NITRATE NEGATIVE (NEGATIVE); URINE PH 7.5 (4.6 - 8.0); URINE PROTEIN NEGATIVE (NEGATIVE); URINE UROBILINOGEN 0.2 E.U./dL (0.2 - 1.0)
[2017-11-10 18:28] LABS: URINE CLARITY CLEAR (CLEAR); URINE COLOR YELLOW
[2017-11-10 18:32] LABS: URINE BACTERIA NONE SEEN /hpf (NONE SEEN); URINE EPITHELIAL CELLS NONE SEEN /lpf (FEW); URINE RBC NONE SEEN /hpf (0-5); URINE WBC NONE SEEN /hpf (0-5)
[2017-11-10 18:33] LABS: AMPHETAMINE URINE NEGATIVE (NEGATIVE); BARBITURATES URINE NEGATIVE (NEGATIVE); BENZODIAZEPINES QUAL URINE NEGATIVE (NEGATIVE); CANNABINOID THC NEGATIVE (NEGATIVE); COCAINE METABOLITE QUAL URINE NEGATIVE (NEGATIVE); METHADONE URINE NEGATIVE (NEGATIVE); METHAMPHETAMINES QUAL URINE NEGATIVE (NEGATIVE); OPIATES (MORPHINE) QUAL. URINE NEGATIVE (NEGATIVE); PHENCYCLIDINE (PCP) URINE NEGATIVE (NEGATIVE); TRICYCLICS (TCA) QUAL. URINE NEGATIVE (NEGATIVE)
[2017-11-10 20:02] VITALS: BP 155/80
[2017-11-11] MEDS ORDERED: Albuterol/Ipratropium Neb 3 ML AERS HHN PRN (00:17)
[2017-11-11] MEDS ORDERED: Maalox 30 mL Cup PO PRN (00:17)
[2017-11-11] MEDS: INSULIN ASPART SLIDING SCALE 100 UNITS/ML UNIT SUBQ SCH (06:34)
[2017-11-11] MEDS: Pantoprazole 40 mg EC Tab PO SCH (06:35)
[2017-11-11] MEDS: Multivitamin Tab PO SCH (09:12)
[2017-11-11] MEDS ORDERED: cloZAPine 100 MG, cloZAPine 75 MG PO SCH (17:00)
--- NOTE | 2017-11-11 21:48 | History & Physical ---
ADMIT DATE: HISTORY OF PRESENT ILLNESS: The patient is a 67-year-old male with long history of diabetes mellitus, hypertension, hyperlipidemia, and psychosis, admitted to [facility] under Dr. Peguero's service for treatment. The patient feels well. No chest pain, no shortness of breath, no nausea, no vomiting. PAST MEDICAL HISTORY: Significant for diabetes mellitus, hypertension, hyperlipidemia, and psychosis. PAST SURGICAL HISTORY: No recent surgery. ALLERGIES: FLUPHENAZINE AND TRIFLUOPERAZINE. SOCIAL HISTORY: He is a chronic smoker. No alcohol or drugs. FAMILY HISTORY: Noncontributory. MEDICATIONS: Follow admission reconciliation. REVIEW OF SYSTEMS: RENAL SYSTEM: No history of chronic renal disorder. CARDIOVASCULAR SYSTEM: He has history of hypertension. No coronary artery disease. ENDOCRINE SYSTEM: Diabetes mellitus. No thyroid problem. GASTROINTESTINAL SYSTEM: No upper or lower gastrointestinal bleed. NEUROLOGICAL SYSTEM: History of psychosis. No seizure disorder. SKELETOMUSCULAR SYSTEM: No muscular dystrophy. HEMATOLOGIC SYSTEM: No bleeding tendencies. RESPIRATORY SYSTEM: Chronic smoker. GENITOURINARY SYSTEM: No dysuria or hematuria. PHYSICAL EXAMINATION: GENERAL: He is awake, alert, and oriented. VITAL SIGNS: Temperature 98.2, heart rate 86, and blood pressure 112/61. HEENT: Normocephalic. Pupils reactive to light and accommodation. Sclerae clear. NECK: Supple. Negative for lymphadenopathy, JVD, or bruit. CHEST: Entry of air bilaterally normal. No rhonchi or wheezing. HEART: S1, S2 normal. No gallop rhythm. ABDOMEN: Soft. Bowel sounds positive. EXTREMITIES: No edema. BACK: Nontender. SKIN: Intact. NEUROLOGIC: He is awake, alert, and oriented. No focal motor deficits. Cranial nerves 2-12 are intact. LABORATORY DATA: White blood 5.4, hemoglobin 13.1, hematocrit 40.2, and platelets 276. Sodium 136, potassium 4.4, BUN 18, and creatinine 1.0. ASSESSMENT: 1. Diabetes mellitus. 2. Hypertension. 3. Hyperlipidemia. 4. Psychosis. PLAN: The patient admitted to the hospital under Dr. Peguero's service. PROBLEM ADDRESSED DURING HOSPITALIZATION: Psychosis. MEDICAL PROBLEMS ADDRESSED AT DISCHARGE: Diabetes mellitus, hypertension, and hyperlipidemia. The patient is medically stable for activity. Thank you, Dr. Peguero for asking me to see your patient. [facility]# [id number]
--- NOTE | 2017-11-12 00:41 | Psychosocial Evaluation ---
DATE OF SERVICE: 11/11/2017 JUSTIFICATION FOR HOSPITALIZATION: The patient is currently in the hospital, combative, agitated, was hallucinating. CHIEF COMPLAINT: "The voices are getting bad." HISTORY OF PRESENT ILLNESS: A 67-year-old male, seems he has history of schizophrenia, complaining of voices, noted to be more combative, agitated, states his mood is "not good". Notes he is very depressed, hopeless, poor sleep, poor appetite. PAST MEDICAL HISTORY: Admissions in the past. FAMILY HISTORY: Noncontributory. SOCIAL HISTORY: Born in [place], not , no kids. Using nicotine. States he lives in group facility type setting. No family, "they are all ." ALLERGIES: Noted including fluphenazine. MENTAL STATUS EXAMINATION: Stated age, some eye contact. Speech within normal limits. Mood "not good". Affect flat. Thought processes were tangential, but redirectable. The patient exhibiting hallucinatory-type behaviors, psychosis, delusions. No overt SI or HI. Insight and judgment diminished. PROVISIONAL DIAGNOSIS: Schizophrenia. UNDER MEDICAL: Please see full H and P. ESTIMATED LENGTH OF STAY: 5-7 days. ASSESSMENT: The patient is requiring inpatient hospitalization, delusional, aggressive, agitated, worsening psychotic symptoms. PLAN: We will continue Clozaril. Will adjust dosages appropriately. TREATMENT PLAN: Includes group as well as milieu therapy. CONDITIONS FOR DISCHARGE: Improved mood, improved affect, cessation of any SI, better coping. [facility]# [id number]
[2017-11-12] MEDS: INSULIN ASPART SLIDING SCALE 100 UNITS/ML UNIT SUBQ SCH (05:38)
[2017-11-12] MEDS: Pantoprazole 40 mg EC Tab PO SCH (06:31)
[2017-11-12] MEDS: Multivitamin Tab PO SCH (08:31)
--- NOTE | 2017-11-12 19:28 | Progress Notes ---
DATE: 11/12/2017 SUBJECTIVE: The patient is currently in the hospital with worsening voices, hallucinating. On [id number], the patient notes he feels "very bad." States the voices are." mumbling." He states he is "not good." He has slept well, but he remains occlusive, paranoid, isolative, stating that he is very upset about the voices, feeling hopeless and despairing. ASSESSMENT: The patient remains symptomatic, ongoing perceptual disturbances, ongoing psychosis. PLAN: We will continue to monitor. The patient is on Clozaril. We will increase Clozaril at this time to target perceptual disturbances. JOB# [id number]
--- NOTE | 2017-11-12 20:06 | Internal Medicine Prog Note ---
Internal Medicine Subjective - Subjective Service Date: 11/12/17 Patient seen and examined:: with staff Patient is:: awake, verbal, in bed, denies any new complaints Per staff patient has:: no adverse event (HE FEELS WELL) Internal Medicine Objective - Results Result Diagrams: 11/10/17 16:37 11/10/17 16:37 Recent Labs: Laboratory Last Values WBC 5.4 Th/cmm (4.8-10.8) D 11/10/17 16:37 RBC 4.78 Mil/cmm (3.80-5.80) 11/10/17 16:37 Hgb 13.1 gm/dL (12-16) 11/10/17 16:37 Hct 40.2 % (41.0-60) L 11/10/17 16:37 MCV 84.0 fl (80-99) 11/10/17 16:37 MCH 27.3 pg (27.0-31.0) 11/10/17 16:37 MCHC Differential 32.5 pg (28.0-36.0) 11/10/17 16:37 RDW 15.8 % (11.5-20.0) 11/10/17 16:37 Plt Count 276 Th/cmm (150-400) D 11/10/17 16:37 MPV 8.0 fl 11/10/17 16:37 Neutrophils % 55.5 % (40.0-80.0) 11/10/17 16:37 Lymphocytes % 31.3 % (20.0-50.0) 11/10/17 16:37 Monocytes % 8.6 % (2.0-10.0) 11/10/17 16:37 Eosinophils % 4.2 % (0.0-5.0) 11/10/17 16:37 Basophils % 0.4 % (0.0-2.0) 11/10/17 16:37 Sodium 136 mEq/L (136-145) 11/10/17 16:37 Potassium 4.4 mEq/L (3.5-5.1) 11/10/17 16:37 Chloride 102 mEq/L (98-107) 11/10/17 16:37 Carbon Dioxide 27.6 mEq/L (21.0-31.0) 11/10/17 16:37 Anion Gap 10.8 (7.0-16.0) 11/10/17 16:37 BUN 18 mg/dL (7-25) 11/10/17 16:37 Creatinine 1.0 mg/dL (0.7-1.3) 11/10/17 16:37 Est GFR ( Amer) > 60.0 ml/min (>90) 11/10/17 16:37 Est GFR (Non-Af Amer) > 60.0 ml/min 11/10/17 16:37 BUN/Creatinine Ratio 18.0 11/10/17 16:37 Glucose 115 mg/dL (70-105) H 11/10/17 16:37 POC Glucose 84 MG/DL (70 - 105) 11/11/17 05:19 Hemoglobin A1c % 6.0 % (4.0-6.0) 11/10/17 16:37 Calcium 9.5 mg/dL (8.6-10.3) 11/10/17 16:37 Total Bilirubin 0.3 mg/dL (0.3-1.0) 11/10/17 16:37 AST 18 U/L (13-39) 11/10/17 16:37 ALT 11 U/L (7-52) 11/10/17 16:37 Alkaline Phosphatase 62 U/L (34-104) 11/10/17 16:37 Total Protein 6.7 gm/dL (6.0-8.3) 11/10/17 16:37 Albumin 4.2 gm/dL (4.2-5.5) 11/10/17 16:37 Globulin 2.5 gm/dL 11/10/17 16:37 Albumin/Globulin Ratio 1.7 (1.0-1.8) 11/10/17 16:37 Triglycerides 108 mg/dL (<150) 11/10/17 16:37 Cholesterol 157 mg/dL (<200) 11/10/17 16:37 LDL Cholesterol Direct 85 mg/dL (75-193) 11/10/17 16:37 HDL Cholesterol 58 mg/dL (23-92) 11/10/17 16:37 TSH 2.23 uIU/ml (0.34-5.60) 11/10/17 16:37 Urine Source CLEAN C 11/10/17 18:10 Urine Color YELLOW 11/10/17 18:10 Urine Clarity CLEAR (CLEAR) 11/10/17 18:10 Urine pH 7.5 (4.6 - 8.0) 11/10/17 18:10 Ur Specific [place] 1.015 (1.005-1.030) 11/10/17 18:10 Urine Protein NEGATIVE mg/dL (NEGATIVE) 11/10/17 18:10 Urine Glucose (UA) NEGATIVE mg/dL (NEGATIVE) 11/10/17 18:10 Urine Ketones NEGATIVE mg/dL (NEGATIVE) 11/10/17 18:10 Urine Blood NEGATIVE (NEGATIVE) 11/10/17 18:10 Urine Nitrate NEGATIVE (NEGATIVE) 11/10/17 18:10 Urine Bilirubin NEGATIVE (NEGATIVE) 11/10/17 18:10 Urine Urobilinogen 0.2 E.U./dL (0.2 - 1.0) 11/10/17 18:10 Ur Leukocyte Esterase NEGATIVE (NEGATIVE) 11/10/17 18:10 Urine RBC NONE SEEN /hpf (0-5) 11/10/17 18:10 Urine WBC NONE SEEN /hpf (0-5) 11/10/17 18:10 Ur Epithelial Cells NONE SEEN /lpf (FEW) 11/10/17 18:10 Urine Bacteria NONE SEEN /hpf (NONE SEEN) 11/10/17 18:10 Salicylates < 25.0 mg/L (30.0-100.0) L 11/10/17 16:37 Urine Opiates Screen NEGATIVE (NEGATIVE) 11/10/17 18:10 Urine Methadone Screen NEGATIVE (NEGATIVE) 11/10/17 18:10 Acetaminophen < 10.0 ug/mL (10.0-30.0) L 11/10/17 16:37 Ur Barbiturates Screen NEGATIVE (NEGATIVE) 11/10/17 18:10 Ur Tricyclics Screen NEGATIVE (NEGATIVE) 11/10/17 18:10 Ur Phencyclidine Scrn NEGATIVE (NEGATIVE) 11/10/17 18:10 Amphetamines Screen NEGATIVE (NEGATIVE) 11/10/17 18:10 U Methamphetamines Scrn NEGATIVE (NEGATIVE) 11/10/17 18:10 U Benzodiazepines Scrn NEGATIVE (NEGATIVE) 11/10/17 18:10 U Cocaine Metab Screen NEGATIVE (NEGATIVE) 11/10/17 18:10 U Cannabinoids Screen NEGATIVE (NEGATIVE) 11/10/17 18:10 Ethyl Alcohol < 10 mg/dL (0-10) 11/10/17 16:37 RPR NONREACTIVE (NONREACTIVE) 11/10/17 16:37 - Physical Exam Vitals and I&O: Vital Signs Temp 97.8 F 11/12/17 14:00 Pulse 91 11/12/17 14:00 Resp 20 11/12/17 14:00 BP 108/70 11/12/17 14:00 Pulse Ox 98 11/12/17 14:00 Intake & Output 11/12/17 11/12/17 11/13/17 06:59 18:59 06:59 Intake Total 480 1000 Balance 480 1000 Intake: Oral 480 1000 Other: # Voids 2 4 # Bowel Movements 1 Active Medications: Current Medications Acetaminophen (Tylenol) 650 mg PO Q4HR PRN PRN Reason: Mild Pain / Temp above 100 Stop: 01/10/18 00:16 Al Hydrox/Mg Hydrox/Simethicone (Maalox) 30 ml PO Q4HR PRN PRN Reason: GI DISTRESS Stop: 01/10/18 00:16 Albuterol/Ipratropium (Duoneb Neb) 3 ml HHN Q8HRT PRN PRN Reason: Shortness of Breath Stop: 01/10/18 00:16 Clozapine (Clozaril) 200 mg PO DAILY [facility] Stop: 01/11/18 05:58 Last Admin: 11/12/17 08:30 Dose: 200 mg Divalproex Sodium (Depakote Dr) 250 mg PO Q8HR JOEL PRN Reason: Protocol Stop: 01/10/18 04:59 Last Admin: 11/12/17 14:00 Dose: 250 mg Docusate Sodium (Colace) 100 mg PO BID [facility] Stop: 01/10/18 08:59 Last Admin: 11/12/17 17:56 Dose: Not Given Insulin Aspart (Novolog Insulin Sliding Scale) 0 units SUBQ 0630 JOEL PRN Reason: Protocol Stop: 01/10/18 06:29 Last Admin: 11/12/17 05:38 Dose: Not Given Metoprolol Tartrate (Lopressor) 25 mg PO HS [facility] Stop: 01/10/18 20:59 Last Admin: 11/11/17 20:24 Dose: Not Given Mirtazapine (Remeron) 15 mg PO [facility] PRN Reason: Protocol Stop: 01/10/18 20:59 Last Admin: 11/11/17 20:24 Dose: 15 mg Multivitamins/Vitamin C (Theragran) 1 tab PO DAILY [facility] Stop: 01/10/18 08:59 Last Admin: 11/12/17 08:31 Dose: 1 tab Ondansetron HCl (Zofran Odt) 4 mg PO Q4H PRN PRN Reason: Nausea / Vomiting Stop: 01/10/18 00:16 Pantoprazole Sodium (Protonix) 40 mg PO QDAC [facility]EL Stop: 01/10/18 07:29 Last Admin: 11/12/17 06:31 Dose: 40 mg Simvastatin (Zocor) 20 mg PO HS [facility]EL PRN Reason: Protocol Stop: 01/10/18 20:59 Last Admin: 11/11/17 20:23 Dose: 20 mg Tramadol HCl (Ultram) 50 mg PO Q8HR PRN PRN Reason: Pain (Moderate) Stop: 01/10/18 00:16 Zolpidem Tartrate (Ambien) 5 mg PO HS PRN PRN Reason: Insomnia Stop: 01/10/18 01:02 General: demented HEENT: NC/AT, PERRLA, EOMI, anicteric sclerae, throat clear Neck: Supple, No JVD, No thyromegaly, No LAD Lungs: CTAB Abdomen: non-tender, non-distended Extremities: clear Neurological: no change - Procedures Procedures: Procedures Procedure Code Date GROUP PSYCHOTHERAPY 28613 07/16/15 GROUP PSYCHOTHERAPY GZHZZZZ 07/16/15 INDIVID PSYCHOTHERAP NEC 94.39 09/06/13 OTHER GROUP THERAPY 94.44 05/03/14 RECREATIONAL THERAPY 93.81 08/25/12 Internal Medicine Assmt/Plan - Assessment Assessment: 1.DM. 2.HTN. 3 HYPERLIPIDEMIA. 4.DEMENTIA. - Plan Plan: CONTINUE ON CURRENT MEDICATION AND DIET.
[2017-11-13] MEDS: INSULIN ASPART SLIDING SCALE 100 UNITS/ML UNIT SUBQ SCH (05:45)
[2017-11-13] MEDS: Pantoprazole 40 mg EC Tab PO SCH (06:56)
--- NOTE | 2017-11-13 07:15 | Progress Notes ---
DATE: 11/13/2017 SUBJECTIVE: The patient is seen today on 11/13/2017. Currently not in the hospital combative, agitated, hallucinating, worsening of voices, history of schizophrenia. On [id number], the patient remains withdrawn, states he does not feel good, states the voices are ongoing. He remains isolative, paranoid, delusional, still with hopeless thoughts, despair, appearing sullen. MEDICATIONS: Reviewed. ASSESSMENT: The patient remains symptomatic, ongoing perceptual disturbances, ongoing psychosis, hopeless thoughts. PLAN: We will continue to monitor. The patient not very amenable to interview this morning, not engaging on exam. He wakes up, but does not say anything to me and goes back to sleep. I did make a recent dose increase of Clozaril. JOB# [id number]
[2017-11-13] MEDS: Multivitamin Tab PO SCH (08:52)
--- NOTE | 2017-11-13 19:38 | Internal Medicine Prog Note ---
Internal Medicine Subjective - Subjective Service Date: 11/13/17 Patient seen and examined:: with staff Patient is:: awake, verbal, in bed, denies any new complaints Per staff patient has:: no adverse event (HE FEELS WELL) Internal Medicine Objective - Results Result Diagrams: 11/10/17 16:37 11/10/17 16:37 Recent Labs: Laboratory Last Values WBC 5.4 Th/cmm (4.8-10.8) D 11/10/17 16:37 RBC 4.78 Mil/cmm (3.80-5.80) 11/10/17 16:37 Hgb 13.1 gm/dL (12-16) 11/10/17 16:37 Hct 40.2 % (41.0-60) L 11/10/17 16:37 MCV 84.0 fl (80-99) 11/10/17 16:37 MCH 27.3 pg (27.0-31.0) 11/10/17 16:37 MCHC Differential 32.5 pg (28.0-36.0) 11/10/17 16:37 RDW 15.8 % (11.5-20.0) 11/10/17 16:37 Plt Count 276 Th/cmm (150-400) D 11/10/17 16:37 MPV 8.0 fl 11/10/17 16:37 Neutrophils % 55.5 % (40.0-80.0) 11/10/17 16:37 Lymphocytes % 31.3 % (20.0-50.0) 11/10/17 16:37 Monocytes % 8.6 % (2.0-10.0) 11/10/17 16:37 Eosinophils % 4.2 % (0.0-5.0) 11/10/17 16:37 Basophils % 0.4 % (0.0-2.0) 11/10/17 16:37 Sodium 136 mEq/L (136-145) 11/10/17 16:37 Potassium 4.4 mEq/L (3.5-5.1) 11/10/17 16:37 Chloride 102 mEq/L (98-107) 11/10/17 16:37 Carbon Dioxide 27.6 mEq/L (21.0-31.0) 11/10/17 16:37 Anion Gap 10.8 (7.0-16.0) 11/10/17 16:37 BUN 18 mg/dL (7-25) 11/10/17 16:37 Creatinine 1.0 mg/dL (0.7-1.3) 11/10/17 16:37 Est GFR ( Amer) > 60.0 ml/min (>90) 11/10/17 16:37 Est GFR (Non-Af Amer) > 60.0 ml/min 11/10/17 16:37 BUN/Creatinine Ratio 18.0 11/10/17 16:37 Glucose 115 mg/dL (70-105) H 11/10/17 16:37 POC Glucose 107 MG/DL (70 - 105) H 11/13/17 05:39 Hemoglobin A1c % 6.0 % (4.0-6.0) 11/10/17 16:37 Calcium 9.5 mg/dL (8.6-10.3) 11/10/17 16:37 Total Bilirubin 0.3 mg/dL (0.3-1.0) 11/10/17 16:37 AST 18 U/L (13-39) 11/10/17 16:37 ALT 11 U/L (7-52) 11/10/17 16:37 Alkaline Phosphatase 62 U/L (34-104) 11/10/17 16:37 Total Protein 6.7 gm/dL (6.0-8.3) 11/10/17 16:37 Albumin 4.2 gm/dL (4.2-5.5) 11/10/17 16:37 Globulin 2.5 gm/dL 11/10/17 16:37 Albumin/Globulin Ratio 1.7 (1.0-1.8) 11/10/17 16:37 Triglycerides 108 mg/dL (<150) 11/10/17 16:37 Cholesterol 157 mg/dL (<200) 11/10/17 16:37 LDL Cholesterol Direct 85 mg/dL (75-193) 11/10/17 16:37 HDL Cholesterol 58 mg/dL (23-92) 11/10/17 16:37 TSH 2.23 uIU/ml (0.34-5.60) 11/10/17 16:37 Urine Source CLEAN C 11/10/17 18:10 Urine Color YELLOW 11/10/17 18:10 Urine Clarity CLEAR (CLEAR) 11/10/17 18:10 Urine pH 7.5 (4.6 - 8.0) 11/10/17 18:10 Ur Specific [place] 1.015 (1.005-1.030) 11/10/17 18:10 Urine Protein NEGATIVE mg/dL (NEGATIVE) 11/10/17 18:10 Urine Glucose (UA) NEGATIVE mg/dL (NEGATIVE) 11/10/17 18:10 Urine Ketones NEGATIVE mg/dL (NEGATIVE) 11/10/17 18:10 Urine Blood NEGATIVE (NEGATIVE) 11/10/17 18:10 Urine Nitrate NEGATIVE (NEGATIVE) 11/10/17 18:10 Urine Bilirubin NEGATIVE (NEGATIVE) 11/10/17 18:10 Urine Urobilinogen 0.2 E.U./dL (0.2 - 1.0) 11/10/17 18:10 Ur Leukocyte Esterase NEGATIVE (NEGATIVE) 11/10/17 18:10 Urine RBC NONE SEEN /hpf (0-5) 11/10/17 18:10 Urine WBC NONE SEEN /hpf (0-5) 11/10/17 18:10 Ur Epithelial Cells NONE SEEN /lpf (FEW) 11/10/17 18:10 Urine Bacteria NONE SEEN /hpf (NONE SEEN) 11/10/17 18:10 Salicylates < 25.0 mg/L (30.0-100.0) L 11/10/17 16:37 Urine Opiates Screen NEGATIVE (NEGATIVE) 11/10/17 18:10 Urine Methadone Screen NEGATIVE (NEGATIVE) 11/10/17 18:10 Acetaminophen < 10.0 ug/mL (10.0-30.0) L 11/10/17 16:37 Ur Barbiturates Screen NEGATIVE (NEGATIVE) 11/10/17 18:10 Ur Tricyclics Screen NEGATIVE (NEGATIVE) 11/10/17 18:10 Ur Phencyclidine Scrn NEGATIVE (NEGATIVE) 11/10/17 18:10 Amphetamines Screen NEGATIVE (NEGATIVE) 11/10/17 18:10 U Methamphetamines Scrn NEGATIVE (NEGATIVE) 11/10/17 18:10 U Benzodiazepines Scrn NEGATIVE (NEGATIVE) 11/10/17 18:10 U Cocaine Metab Screen NEGATIVE (NEGATIVE) 11/10/17 18:10 U Cannabinoids Screen NEGATIVE (NEGATIVE) 11/10/17 18:10 Ethyl Alcohol < 10 mg/dL (0-10) 11/10/17 16:37 RPR NONREACTIVE (NONREACTIVE) 11/10/17 16:37 - Physical Exam Vitals and I&O: Vital Signs Temp 97.1 F 11/13/17 06:45 Pulse 103 11/13/17 08:15 Resp 20 11/13/17 08:15 BP 129/82 11/13/17 06:45 Pulse Ox 97 11/13/17 08:15 Intake & Output 11/13/17 11/13/17 11/14/17 06:59 18:59 06:59 Intake Total 120 1000 Balance 120 1000 Intake: Oral 120 1000 Other: # Voids 2 Active Medications: Current Medications Acetaminophen (Tylenol) 650 mg PO Q4HR PRN PRN Reason: Mild Pain / Temp above 100 Stop: 01/10/18 00:16 Al Hydrox/Mg Hydrox/Simethicone (Maalox) 30 ml PO Q4HR PRN PRN Reason: GI DISTRESS Stop: 01/10/18 00:16 Albuterol/Ipratropium (Duoneb Neb) 3 ml HHN Q8HRT PRN PRN Reason: Shortness of Breath Stop: 01/10/18 00:16 Clozapine (Clozaril) 200 mg PO DAILY [facility] Stop: 01/11/18 05:58 Last Admin: 11/13/17 08:51 Dose: 200 mg Divalproex Sodium (Depakote Dr) 250 mg PO Q8HR [facility]EL PRN Reason: Protocol Stop: 01/10/18 04:59 Last Admin: 11/13/17 12:48 Dose: 250 mg Docusate Sodium (Colace) 100 mg PO BID [facility] Stop: 01/10/18 08:59 Last Admin: 11/13/17 16:24 Dose: 100 mg Insulin Aspart (Novolog Insulin Sliding Scale) 0 units SUBQ 0630 JOEL PRN Reason: Protocol Stop: 01/10/18 06:29 Last Admin: 11/13/17 05:45 Dose: Not Given Metoprolol Tartrate (Lopressor) 25 mg PO HS [facility] Stop: 01/10/18 20:59 Last Admin: 11/12/17 21:23 Dose: 25 mg Mirtazapine (Remeron) 15 mg PO HS [facility]EL PRN Reason: Protocol Stop: 01/10/18 20:59 Last Admin: 11/12/17 21:19 Dose: 15 mg Multivitamins/Vitamin C (Theragran) 1 tab PO DAILY [facility] Stop: 01/10/18 08:59 Last Admin: 11/13/17 08:52 Dose: 1 tab Ondansetron HCl (Zofran Odt) 4 mg PO Q4H PRN PRN Reason: Nausea / Vomiting Stop: 01/10/18 00:16 Pantoprazole Sodium (Protonix) 40 mg PO QDAC JOEL Stop: 01/10/18 07:29 Last Admin: 11/13/17 06:56 Dose: 40 mg Simvastatin (Zocor) 20 mg PO HS JOEL PRN Reason: Protocol Stop: 01/10/18 20:59 Last Admin: 11/12/17 21:19 Dose: 20 mg Tramadol HCl (Ultram) 50 mg PO Q8HR PRN PRN Reason: Pain (Moderate) Stop: 01/10/18 00:16 Zolpidem Tartrate (Ambien) 5 mg PO HS PRN PRN Reason: Insomnia Stop: 01/10/18 01:02 General: demented HEENT: NC/AT, PERRLA, EOMI, anicteric sclerae, throat clear Neck: Supple, No JVD, No thyromegaly, No LAD Lungs: CTAB Abdomen: non-tender, non-distended Extremities: clear Neurological: no change - Procedures Procedures: Procedures Procedure Code Date GROUP PSYCHOTHERAPY 00097 07/16/15 GROUP PSYCHOTHERAPY GZHZZZZ 07/16/15 INDIVID PSYCHOTHERAP NEC 94.39 09/06/13 OTHER GROUP THERAPY 94.44 05/03/14 RECREATIONAL THERAPY 93.81 08/25/12 Internal Medicine Assmt/Plan - Assessment Assessment: 1.DM. 2.HTN. 3 HYPERLIPIDEMIA. 4.DEMENTIA. - Plan Plan: CONTINUE ON CURRENT MEDICATION AND DIET.
[2017-11-14] MEDS: INSULIN ASPART SLIDING SCALE 100 UNITS/ML UNIT SUBQ SCH (05:30)
[2017-11-14] MEDS: Pantoprazole 40 mg EC Tab PO SCH (06:30)
[2017-11-14] MEDS: Multivitamin Tab PO SCH (08:38)
--- NOTE | 2017-11-14 21:15 | Internal Medicine Prog Note ---
Internal Medicine Subjective - Subjective Service Date: 11/14/17 Patient seen and examined:: with staff Patient is:: awake, verbal, in bed, denies any new complaints Per staff patient has:: no adverse event (HE FEELS WELL) Internal Medicine Objective - Results Result Diagrams: 11/10/17 16:37 11/10/17 16:37 Recent Labs: Laboratory Last Values WBC 5.4 Th/cmm (4.8-10.8) D 11/10/17 16:37 RBC 4.78 Mil/cmm (3.80-5.80) 11/10/17 16:37 Hgb 13.1 gm/dL (12-16) 11/10/17 16:37 Hct 40.2 % (41.0-60) L 11/10/17 16:37 MCV 84.0 fl (80-99) 11/10/17 16:37 MCH 27.3 pg (27.0-31.0) 11/10/17 16:37 MCHC Differential 32.5 pg (28.0-36.0) 11/10/17 16:37 RDW 15.8 % (11.5-20.0) 11/10/17 16:37 Plt Count 276 Th/cmm (150-400) D 11/10/17 16:37 MPV 8.0 fl 11/10/17 16:37 Neutrophils % 55.5 % (40.0-80.0) 11/10/17 16:37 Lymphocytes % 31.3 % (20.0-50.0) 11/10/17 16:37 Monocytes % 8.6 % (2.0-10.0) 11/10/17 16:37 Eosinophils % 4.2 % (0.0-5.0) 11/10/17 16:37 Basophils % 0.4 % (0.0-2.0) 11/10/17 16:37 Sodium 136 mEq/L (136-145) 11/10/17 16:37 Potassium 4.4 mEq/L (3.5-5.1) 11/10/17 16:37 Chloride 102 mEq/L (98-107) 11/10/17 16:37 Carbon Dioxide 27.6 mEq/L (21.0-31.0) 11/10/17 16:37 Anion Gap 10.8 (7.0-16.0) 11/10/17 16:37 BUN 18 mg/dL (7-25) 11/10/17 16:37 Creatinine 1.0 mg/dL (0.7-1.3) 11/10/17 16:37 Est GFR ( Amer) > 60.0 ml/min (>90) 11/10/17 16:37 Est GFR (Non-Af Amer) > 60.0 ml/min 11/10/17 16:37 BUN/Creatinine Ratio 18.0 11/10/17 16:37 Glucose 115 mg/dL (70-105) H 11/10/17 16:37 POC Glucose 95 MG/DL (70 - 105) 11/14/17 05:26 Hemoglobin A1c % 6.0 % (4.0-6.0) 11/10/17 16:37 Calcium 9.5 mg/dL (8.6-10.3) 11/10/17 16:37 Total Bilirubin 0.3 mg/dL (0.3-1.0) 11/10/17 16:37 AST 18 U/L (13-39) 11/10/17 16:37 ALT 11 U/L (7-52) 11/10/17 16:37 Alkaline Phosphatase 62 U/L (34-104) 11/10/17 16:37 Total Protein 6.7 gm/dL (6.0-8.3) 11/10/17 16:37 Albumin 4.2 gm/dL (4.2-5.5) 11/10/17 16:37 Globulin 2.5 gm/dL 11/10/17 16:37 Albumin/Globulin Ratio 1.7 (1.0-1.8) 11/10/17 16:37 Triglycerides 108 mg/dL (<150) 11/10/17 16:37 Cholesterol 157 mg/dL (<200) 11/10/17 16:37 LDL Cholesterol Direct 85 mg/dL (75-193) 11/10/17 16:37 HDL Cholesterol 58 mg/dL (23-92) 11/10/17 16:37 TSH 2.23 uIU/ml (0.34-5.60) 11/10/17 16:37 Urine Source CLEAN C 11/10/17 18:10 Urine Color YELLOW 11/10/17 18:10 Urine Clarity CLEAR (CLEAR) 11/10/17 18:10 Urine pH 7.5 (4.6 - 8.0) 11/10/17 18:10 Ur Specific [place] 1.015 (1.005-1.030) 11/10/17 18:10 Urine Protein NEGATIVE mg/dL (NEGATIVE) 11/10/17 18:10 Urine Glucose (UA) NEGATIVE mg/dL (NEGATIVE) 11/10/17 18:10 Urine Ketones NEGATIVE mg/dL (NEGATIVE) 11/10/17 18:10 Urine Blood NEGATIVE (NEGATIVE) 11/10/17 18:10 Urine Nitrate NEGATIVE (NEGATIVE) 11/10/17 18:10 Urine Bilirubin NEGATIVE (NEGATIVE) 11/10/17 18:10 Urine Urobilinogen 0.2 E.U./dL (0.2 - 1.0) 11/10/17 18:10 Ur Leukocyte Esterase NEGATIVE (NEGATIVE) 11/10/17 18:10 Urine RBC NONE SEEN /hpf (0-5) 11/10/17 18:10 Urine WBC NONE SEEN /hpf (0-5) 11/10/17 18:10 Ur Epithelial Cells NONE SEEN /lpf (FEW) 11/10/17 18:10 Urine Bacteria NONE SEEN /hpf (NONE SEEN) 11/10/17 18:10 Salicylates < 25.0 mg/L (30.0-100.0) L 11/10/17 16:37 Urine Opiates Screen NEGATIVE (NEGATIVE) 11/10/17 18:10 Urine Methadone Screen NEGATIVE (NEGATIVE) 11/10/17 18:10 Acetaminophen < 10.0 ug/mL (10.0-30.0) L 11/10/17 16:37 Ur Barbiturates Screen NEGATIVE (NEGATIVE) 11/10/17 18:10 Ur Tricyclics Screen NEGATIVE (NEGATIVE) 11/10/17 18:10 Ur Phencyclidine Scrn NEGATIVE (NEGATIVE) 11/10/17 18:10 Amphetamines Screen NEGATIVE (NEGATIVE) 11/10/17 18:10 U Methamphetamines Scrn NEGATIVE (NEGATIVE) 11/10/17 18:10 U Benzodiazepines Scrn NEGATIVE (NEGATIVE) 11/10/17 18:10 U Cocaine Metab Screen NEGATIVE (NEGATIVE) 11/10/17 18:10 U Cannabinoids Screen NEGATIVE (NEGATIVE) 11/10/17 18:10 Ethyl Alcohol < 10 mg/dL (0-10) 11/10/17 16:37 RPR NONREACTIVE (NONREACTIVE) 11/10/17 16:37 - Physical Exam Vitals and I&O: Vital Signs Temp 97.8 F 11/14/17 20:08 Pulse 100 11/14/17 20:57 Resp 20 11/14/17 20:08 BP 121/66 11/14/17 20:57 Pulse Ox 97 11/14/17 20:08 Intake & Output 11/14/17 11/14/17 11/15/17 06:59 18:59 06:59 Intake Total 240 950 480 Balance 240 950 480 Intake: Oral 240 950 480 Other: # Voids 1 4 2 # Bowel Movements 0 1 Active Medications: Current Medications Acetaminophen (Tylenol) 650 mg PO Q4HR PRN PRN Reason: Mild Pain / Temp above 100 Stop: 01/10/18 00:16 Al Hydrox/Mg Hydrox/Simethicone (Maalox) 30 ml PO Q4HR PRN PRN Reason: GI DISTRESS Stop: 01/10/18 00:16 Albuterol/Ipratropium (Duoneb Neb) 3 ml HHN Q8HRT PRN PRN Reason: Shortness of Breath Stop: 01/10/18 00:16 Clozapine (Clozaril) 200 mg PO DAILY [facility] Stop: 01/11/18 05:58 Last Admin: 11/14/17 08:35 Dose: 200 mg Clozapine (Clozaril) 25 mg PO HS JOEL PRN Reason: Protocol Stop: 01/13/18 20:59 Divalproex Sodium (Depakote Dr) 250 mg PO Q8HR JOEL PRN Reason: Protocol Stop: 01/10/18 04:59 Last Admin: 11/14/17 20:58 Dose: 250 mg Docusate Sodium (Colace) 100 mg PO BID [facility] Stop: 01/10/18 08:59 Last Admin: 11/14/17 16:06 Dose: 100 mg Insulin Aspart (Novolog Insulin Sliding Scale) 0 units SUBQ 0630 JOEL PRN Reason: Protocol Stop: 01/10/18 06:29 Last Admin: 11/14/17 05:30 Dose: Not Given Metoprolol Tartrate (Lopressor) 25 mg PO HS [facility] Stop: 01/10/18 20:59 Last Admin: 11/14/17 20:57 Dose: 25 mg Mirtazapine (Remeron) 15 mg PO HS JOEL PRN Reason: Protocol Stop: 01/10/18 20:59 Last Admin: 11/14/17 20:58 Dose: 15 mg Multivitamins/Vitamin C (Theragran) 1 tab PO DAILY JOEL Stop: 01/10/18 08:59 Last Admin: 11/14/17 08:38 Dose: 1 tab Ondansetron HCl (Zofran Odt) 4 mg PO Q4H PRN PRN Reason: Nausea / Vomiting Stop: 01/10/18 00:16 Pantoprazole Sodium (Protonix) 40 mg PO QDAC JOEL Stop: 01/10/18 07:29 Last Admin: 11/14/17 06:30 Dose: 40 mg Simvastatin (Zocor) 20 mg PO HS JOEL PRN Reason: Protocol Stop: 01/10/18 20:59 Last Admin: 11/14/17 20:58 Dose: 20 mg Tramadol HCl (Ultram) 50 mg PO Q8HR PRN PRN Reason: Pain (Moderate) Stop: 01/10/18 00:16 Zolpidem Tartrate (Ambien) 5 mg PO HS PRN PRN Reason: Insomnia Stop: 01/10/18 01:02 General: demented HEENT: NC/AT, PERRLA, EOMI, anicteric sclerae, throat clear Neck: Supple, No JVD, No thyromegaly, No LAD Lungs: CTAB Abdomen: non-tender, non-distended Extremities: clear Neurological: no change - Procedures Procedures: Procedures Procedure Code Date GROUP PSYCHOTHERAPY 74451 07/16/15 GROUP PSYCHOTHERAPY [id number] 07/16/15 INDIVID PSYCHOTHERAP NEC 94.39 09/06/13 OTHER GROUP THERAPY 94.44 05/03/14 RECREATIONAL THERAPY 93.81 08/25/12 Internal Medicine Assmt/Plan - Assessment Assessment: 1.DM. 2.HTN. 3 HYPERLIPIDEMIA. 4.DEMENTIA. - Plan Plan: CONTINUE ON CURRENT MEDICATION AND DIET.
[2017-11-15] MEDS: Pantoprazole 40 mg EC Tab PO SCH (06:47)
[2017-11-15] MEDS: INSULIN ASPART SLIDING SCALE 100 UNITS/ML UNIT SUBQ SCH (06:48)
--- NOTE | 2017-11-15 07:15 | Progress Notes ---
DATE: 11/14/2017 The patient is seen today, 11/14/2017. Currently in the hospital due to combative behaviors, agitation, hallucinations, worsening of voices. The patient noting he is having difficulty sleeping at night, still hallucinating, still hopeless and helpless thoughts, despair, appearing sullen and isolative and reclusive. Medications reviewed. He is currently on Clozaril and Depakote. ASSESSMENT: The patient remains symptomatic, still with ongoing psychotic symptoms. PLAN: We will continue to monitor. We will be titrating, adjusting his dosing of Clozaril, I will be increasing Clozaril dosing to target his hallucinations given his ongoing symptoms, he is not safe for discharge at this time. [facility]# [id number]
[2017-11-15] MEDS: Multivitamin Tab PO SCH (09:33)
--- NOTE | 2017-11-15 21:02 | Internal Medicine Prog Note ---
Internal Medicine Subjective - Subjective Service Date: 11/15/17 Patient seen and examined:: with staff Patient is:: awake, verbal, in bed, denies any new complaints Per staff patient has:: no adverse event (HE FEELS WELL) Internal Medicine Objective - Results Result Diagrams: 11/10/17 16:37 11/10/17 16:37 Recent Labs: Laboratory Last Values WBC 5.4 Th/cmm (4.8-10.8) D 11/10/17 16:37 RBC 4.78 Mil/cmm (3.80-5.80) 11/10/17 16:37 Hgb 13.1 gm/dL (12-16) 11/10/17 16:37 Hct 40.2 % (41.0-60) L 11/10/17 16:37 MCV 84.0 fl (80-99) 11/10/17 16:37 MCH 27.3 pg (27.0-31.0) 11/10/17 16:37 MCHC Differential 32.5 pg (28.0-36.0) 11/10/17 16:37 RDW 15.8 % (11.5-20.0) 11/10/17 16:37 Plt Count 276 Th/cmm (150-400) D 11/10/17 16:37 MPV 8.0 fl 11/10/17 16:37 Neutrophils % 55.5 % (40.0-80.0) 11/10/17 16:37 Lymphocytes % 31.3 % (20.0-50.0) 11/10/17 16:37 Monocytes % 8.6 % (2.0-10.0) 11/10/17 16:37 Eosinophils % 4.2 % (0.0-5.0) 11/10/17 16:37 Basophils % 0.4 % (0.0-2.0) 11/10/17 16:37 Sodium 136 mEq/L (136-145) 11/10/17 16:37 Potassium 4.4 mEq/L (3.5-5.1) 11/10/17 16:37 Chloride 102 mEq/L (98-107) 11/10/17 16:37 Carbon Dioxide 27.6 mEq/L (21.0-31.0) 11/10/17 16:37 Anion Gap 10.8 (7.0-16.0) 11/10/17 16:37 BUN 18 mg/dL (7-25) 11/10/17 16:37 Creatinine 1.0 mg/dL (0.7-1.3) 11/10/17 16:37 Est GFR ( Amer) > 60.0 ml/min (>90) 11/10/17 16:37 Est GFR (Non-Af Amer) > 60.0 ml/min 11/10/17 16:37 BUN/Creatinine Ratio 18.0 11/10/17 16:37 Glucose 115 mg/dL (70-105) H 11/10/17 16:37 POC Glucose 90 MG/DL (70 - 105) 11/15/17 11:20 Hemoglobin A1c % 6.0 % (4.0-6.0) 11/10/17 16:37 Calcium 9.5 mg/dL (8.6-10.3) 11/10/17 16:37 Total Bilirubin 0.3 mg/dL (0.3-1.0) 11/10/17 16:37 AST 18 U/L (13-39) 11/10/17 16:37 ALT 11 U/L (7-52) 11/10/17 16:37 Alkaline Phosphatase 62 U/L (34-104) 11/10/17 16:37 Total Protein 6.7 gm/dL (6.0-8.3) 11/10/17 16:37 Albumin 4.2 gm/dL (4.2-5.5) 11/10/17 16:37 Globulin 2.5 gm/dL 11/10/17 16:37 Albumin/Globulin Ratio 1.7 (1.0-1.8) 11/10/17 16:37 Triglycerides 108 mg/dL (<150) 11/10/17 16:37 Cholesterol 157 mg/dL (<200) 11/10/17 16:37 LDL Cholesterol Direct 85 mg/dL (75-193) 11/10/17 16:37 HDL Cholesterol 58 mg/dL (23-92) 11/10/17 16:37 TSH 2.23 uIU/ml (0.34-5.60) 11/10/17 16:37 Urine Source CLEAN C 11/10/17 18:10 Urine Color YELLOW 11/10/17 18:10 Urine Clarity CLEAR (CLEAR) 11/10/17 18:10 Urine pH 7.5 (4.6 - 8.0) 11/10/17 18:10 Ur Specific [place] 1.015 (1.005-1.030) 11/10/17 18:10 Urine Protein NEGATIVE mg/dL (NEGATIVE) 11/10/17 18:10 Urine Glucose (UA) NEGATIVE mg/dL (NEGATIVE) 11/10/17 18:10 Urine Ketones NEGATIVE mg/dL (NEGATIVE) 11/10/17 18:10 Urine Blood NEGATIVE (NEGATIVE) 11/10/17 18:10 Urine Nitrate NEGATIVE (NEGATIVE) 11/10/17 18:10 Urine Bilirubin NEGATIVE (NEGATIVE) 11/10/17 18:10 Urine Urobilinogen 0.2 E.U./dL (0.2 - 1.0) 11/10/17 18:10 Ur Leukocyte Esterase NEGATIVE (NEGATIVE) 11/10/17 18:10 Urine RBC NONE SEEN /hpf (0-5) 11/10/17 18:10 Urine WBC NONE SEEN /hpf (0-5) 11/10/17 18:10 Ur Epithelial Cells NONE SEEN /lpf (FEW) 11/10/17 18:10 Urine Bacteria NONE SEEN /hpf (NONE SEEN) 11/10/17 18:10 Salicylates < 25.0 mg/L (30.0-100.0) L 11/10/17 16:37 Urine Opiates Screen NEGATIVE (NEGATIVE) 11/10/17 18:10 Urine Methadone Screen NEGATIVE (NEGATIVE) 11/10/17 18:10 Acetaminophen < 10.0 ug/mL (10.0-30.0) L 11/10/17 16:37 Ur Barbiturates Screen NEGATIVE (NEGATIVE) 11/10/17 18:10 Ur Tricyclics Screen NEGATIVE (NEGATIVE) 11/10/17 18:10 Ur Phencyclidine Scrn NEGATIVE (NEGATIVE) 11/10/17 18:10 Amphetamines Screen NEGATIVE (NEGATIVE) 11/10/17 18:10 U Methamphetamines Scrn NEGATIVE (NEGATIVE) 11/10/17 18:10 U Benzodiazepines Scrn NEGATIVE (NEGATIVE) 11/10/17 18:10 U Cocaine Metab Screen NEGATIVE (NEGATIVE) 11/10/17 18:10 U Cannabinoids Screen NEGATIVE (NEGATIVE) 11/10/17 18:10 Ethyl Alcohol < 10 mg/dL (0-10) 11/10/17 16:37 RPR NONREACTIVE (NONREACTIVE) 11/10/17 16:37 - Physical Exam Vitals and I&O: Vital Signs Temp 98.2 F 11/15/17 19:40 Pulse 97 11/15/17 20:41 Resp 20 11/15/17 19:40 BP 139/75 11/15/17 20:41 Pulse Ox 98 11/15/17 19:40 Intake & Output 11/15/17 11/15/17 11/16/17 06:59 18:59 06:59 Intake Total 480 1200 480 Balance 480 1200 480 Intake: Oral 480 1200 480 Other: # Voids 2 3 2 # Bowel Movements 0 Stool Characteristics Soft Active Medications: Current Medications Acetaminophen (Tylenol) 650 mg PO Q4HR PRN PRN Reason: Mild Pain / Temp above 100 Stop: 01/10/18 00:16 Al Hydrox/Mg Hydrox/Simethicone (Maalox) 30 ml PO Q4HR PRN PRN Reason: GI DISTRESS Stop: 01/10/18 00:16 Albuterol/Ipratropium (Duoneb Neb) 3 ml HHN Q8HRT PRN PRN Reason: Shortness of Breath Stop: 01/10/18 00:16 Clozapine (Clozaril) 200 mg PO DAILY [facility] Stop: 01/11/18 05:58 Last Admin: 11/15/17 09:32 Dose: 200 mg Clozapine (Clozaril) 50 mg PO HS JOEL PRN Reason: Protocol Stop: 01/14/18 20:59 Last Admin: 11/15/17 20:40 Dose: 50 mg Divalproex Sodium (Depakote Dr) 250 mg PO Q8HR JOEL PRN Reason: Protocol Stop: 01/10/18 04:59 Last Admin: 11/15/17 20:40 Dose: 250 mg Docusate Sodium (Colace) 100 mg PO BID [facility] Stop: 01/10/18 08:59 Last Admin: 11/15/17 16:15 Dose: 100 mg Insulin Aspart (Novolog Insulin Sliding Scale) 0 units SUBQ 0630 JOEL PRN Reason: Protocol Stop: 01/10/18 06:29 Last Admin: 11/15/17 06:48 Dose: Not Given Lorazepam (Ativan) 0.5 mg PO Q6H PRN; Protocol PRN Reason: Agitation Stop: 01/14/18 11:12 Last Admin: 11/15/17 12:09 Dose: 0.5 mg Metoprolol Tartrate (Lopressor) 25 mg PO HS JOEL Stop: 01/10/18 20:59 Last Admin: 11/15/17 20:41 Dose: 25 mg Mirtazapine (Remeron) 15 mg PO HS JOEL PRN Reason: Protocol Stop: 01/10/18 20:59 Last Admin: 11/15/17 20:40 Dose: 15 mg Multivitamins/Vitamin C (Theragran) 1 tab PO DAILY JOEL Stop: 01/10/18 08:59 Last Admin: 11/15/17 09:33 Dose: 1 tab Ondansetron HCl (Zofran Odt) 4 mg PO Q4H PRN PRN Reason: Nausea / Vomiting Stop: 01/10/18 00:16 Pantoprazole Sodium (Protonix) 40 mg PO QDAC JOEL Stop: 01/10/18 07:29 Last Admin: 11/15/17 06:47 Dose: 40 mg Simvastatin (Zocor) 20 mg PO HS JOEL PRN Reason: Protocol Stop: 01/10/18 20:59 Last Admin: 11/15/17 20:40 Dose: 20 mg Tramadol HCl (Ultram) 50 mg PO Q8HR PRN PRN Reason: Pain (Moderate) Stop: 01/10/18 00:16 Zolpidem Tartrate (Ambien) 5 mg PO HS PRN PRN Reason: Insomnia Stop: 01/10/18 01:02 General: demented HEENT: NC/AT, PERRLA, EOMI, anicteric sclerae, throat clear Neck: Supple, No JVD, No thyromegaly, No LAD Lungs: CTAB Abdomen: non-tender, non-distended Extremities: clear Neurological: no change - Procedures Procedures: Procedures Procedure Code Date GROUP PSYCHOTHERAPY 14994 07/16/15 GROUP PSYCHOTHERAPY GZHZZZZ 07/16/15 INDIVID PSYCHOTHERAP NEC 94.39 09/06/13 OTHER GROUP THERAPY 94.44 05/03/14 RECREATIONAL THERAPY 93.81 08/25/12 Internal Medicine Assmt/Plan - Assessment Assessment: 1.DM. 2.HTN. 3 HYPERLIPIDEMIA. 4.DEMENTIA. - Plan Plan: CONTINUE ON CURRENT MEDICATION AND DIET. Nutritional Asmnt/Malnutr-PDOC - Dietary Evaluation Malnutrition Findings (Please click <Entered> for more info): Nutritional Asmnt/Malnutrition Start: 11/15/17 14: 32 Text: Status: Complete Freq: Document 11/15/17 14:32 [email or web address] (Rec: 11/15/17 14:35 [email or web address]) Nutritional Asmnt/Malnutrition Patient General Information Nutritional Screening Moderate Risk Diagnosis psychosis NOS Pertinent Medical Hx/Surgical Hx DM, HTN, HLD, psychosis Subjective Information Pt confused and depressed. Eating 75-100% of meals. Current Diet Order/ Nutrition Support mechanical soft, chopped, CCHO , MAURA Patient / S.O Not Indicated Pertinent Medications insulin, remeron, MVI, protonix Pertinent Labs POC: 84-107, hgba1c: 6.0 Nutritional Hx/Data Height 1.57 m Height (Calculated Centimeters) 157.5 Current Weight (lbs) 68.039 kg Weight (Calculated Kilograms) 68.0 Weight (Calculated Grams) 38774.9 [place] Body Weight 118 lbs % [place] Body Weight 127 Body Mass Index (BMI) 27.4 Weight Status Overweight GI Symptoms GI Symptoms None Last BM 11/13 Difficult in: None Skin Integrity/Comment: intact Current %PO Good (75-100%) Estimated Nutritional Goals BEE in Kcals: Adj wt of IBW Calories/Kcals/Kg 25-30 Kcals Calculated 1482-1941 kcals Protein: Adj wt of IBW Protein g/k-1.2 Protein Calculated 68-82 g Fluid: ml 3401-0161 mL (1 ml/kcal) Nutritional Problem 1. Problem Problem n/a Etiology none Signs/Symptoms: none Intervention/Recommendation Comments 1. Continue mechanical soft, chopped, CCHO, MAURA diet as ordered Expected Outcomes/Goals Expected Outcomes/Goals Goal: PO intake >50% montior wts, labs, skin, PO intake
--- NOTE | 2017-11-16 05:33 | Progress Notes ---
DATE: 11/15/2017 SUBJECTIVE: The patient is currently in the hospital due to combative behaviors, delusional, psychotic, still attesting to voices, poor sleep, believing that people are after him, paranoid that someone is trying to hurt him, stating he is not sleeping at all at night, attesting to insomnia. Staff noting he is very anxious, ruminative. MEDICATIONS: Reviewed. ASSESSMENT: The patient remains symptomatic, still psychotic, insomnia. PLAN: We will continue to monitor. We will titrate and adjust medications. Given his ongoing symptoms, he is not safe for discharge. [facility]# [id number]
[2017-11-16] MEDS: INSULIN ASPART SLIDING SCALE 100 UNITS/ML UNIT SUBQ SCH (06:40)
[2017-11-16] MEDS: Pantoprazole 40 mg EC Tab PO SCH (06:41)
[2017-11-16] MEDS: Multivitamin Tab PO SCH (08:24)
--- NOTE | 2017-11-16 20:19 | Internal Medicine Prog Note ---
Internal Medicine Subjective - Subjective Service Date: 11/16/17 Patient seen and examined:: with staff Patient is:: awake, verbal, in bed, denies any new complaints Per staff patient has:: no adverse event (HE FEELS WELL) Internal Medicine Objective - Results Result Diagrams: 11/10/17 16:37 11/10/17 16:37 Recent Labs: Laboratory Last Values WBC 5.4 Th/cmm (4.8-10.8) D 11/10/17 16:37 RBC 4.78 Mil/cmm (3.80-5.80) 11/10/17 16:37 Hgb 13.1 gm/dL (12-16) 11/10/17 16:37 Hct 40.2 % (41.0-60) L 11/10/17 16:37 MCV 84.0 fl (80-99) 11/10/17 16:37 MCH 27.3 pg (27.0-31.0) 11/10/17 16:37 MCHC Differential 32.5 pg (28.0-36.0) 11/10/17 16:37 RDW 15.8 % (11.5-20.0) 11/10/17 16:37 Plt Count 276 Th/cmm (150-400) D 11/10/17 16:37 MPV 8.0 fl 11/10/17 16:37 Neutrophils % 55.5 % (40.0-80.0) 11/10/17 16:37 Lymphocytes % 31.3 % (20.0-50.0) 11/10/17 16:37 Monocytes % 8.6 % (2.0-10.0) 11/10/17 16:37 Eosinophils % 4.2 % (0.0-5.0) 11/10/17 16:37 Basophils % 0.4 % (0.0-2.0) 11/10/17 16:37 Sodium 136 mEq/L (136-145) 11/10/17 16:37 Potassium 4.4 mEq/L (3.5-5.1) 11/10/17 16:37 Chloride 102 mEq/L (98-107) 11/10/17 16:37 Carbon Dioxide 27.6 mEq/L (21.0-31.0) 11/10/17 16:37 Anion Gap 10.8 (7.0-16.0) 11/10/17 16:37 BUN 18 mg/dL (7-25) 11/10/17 16:37 Creatinine 1.0 mg/dL (0.7-1.3) 11/10/17 16:37 Est GFR ( Amer) > 60.0 ml/min (>90) 11/10/17 16:37 Est GFR (Non-Af Amer) > 60.0 ml/min 11/10/17 16:37 BUN/Creatinine Ratio 18.0 11/10/17 16:37 Glucose 115 mg/dL (70-105) H 11/10/17 16:37 POC Glucose 90 MG/DL (70 - 105) 11/15/17 11:20 Hemoglobin A1c % 6.0 % (4.0-6.0) 11/10/17 16:37 Calcium 9.5 mg/dL (8.6-10.3) 11/10/17 16:37 Total Bilirubin 0.3 mg/dL (0.3-1.0) 11/10/17 16:37 AST 18 U/L (13-39) 11/10/17 16:37 ALT 11 U/L (7-52) 11/10/17 16:37 Alkaline Phosphatase 62 U/L (34-104) 11/10/17 16:37 Total Protein 6.7 gm/dL (6.0-8.3) 11/10/17 16:37 Albumin 4.2 gm/dL (4.2-5.5) 11/10/17 16:37 Globulin 2.5 gm/dL 11/10/17 16:37 Albumin/Globulin Ratio 1.7 (1.0-1.8) 11/10/17 16:37 Triglycerides 108 mg/dL (<150) 11/10/17 16:37 Cholesterol 157 mg/dL (<200) 11/10/17 16:37 LDL Cholesterol Direct 85 mg/dL (75-193) 11/10/17 16:37 HDL Cholesterol 58 mg/dL (23-92) 11/10/17 16:37 TSH 2.23 uIU/ml (0.34-5.60) 11/10/17 16:37 Urine Source CLEAN C 11/10/17 18:10 Urine Color YELLOW 11/10/17 18:10 Urine Clarity CLEAR (CLEAR) 11/10/17 18:10 Urine pH 7.5 (4.6 - 8.0) 11/10/17 18:10 Ur Specific [place] 1.015 (1.005-1.030) 11/10/17 18:10 Urine Protein NEGATIVE mg/dL (NEGATIVE) 11/10/17 18:10 Urine Glucose (UA) NEGATIVE mg/dL (NEGATIVE) 11/10/17 18:10 Urine Ketones NEGATIVE mg/dL (NEGATIVE) 11/10/17 18:10 Urine Blood NEGATIVE (NEGATIVE) 11/10/17 18:10 Urine Nitrate NEGATIVE (NEGATIVE) 11/10/17 18:10 Urine Bilirubin NEGATIVE (NEGATIVE) 11/10/17 18:10 Urine Urobilinogen 0.2 E.U./dL (0.2 - 1.0) 11/10/17 18:10 Ur Leukocyte Esterase NEGATIVE (NEGATIVE) 11/10/17 18:10 Urine RBC NONE SEEN /hpf (0-5) 11/10/17 18:10 Urine WBC NONE SEEN /hpf (0-5) 11/10/17 18:10 Ur Epithelial Cells NONE SEEN /lpf (FEW) 11/10/17 18:10 Urine Bacteria NONE SEEN /hpf (NONE SEEN) 11/10/17 18:10 Salicylates < 25.0 mg/L (30.0-100.0) L 11/10/17 16:37 Urine Opiates Screen NEGATIVE (NEGATIVE) 11/10/17 18:10 Urine Methadone Screen NEGATIVE (NEGATIVE) 11/10/17 18:10 Acetaminophen < 10.0 ug/mL (10.0-30.0) L 11/10/17 16:37 Ur Barbiturates Screen NEGATIVE (NEGATIVE) 11/10/17 18:10 Ur Tricyclics Screen NEGATIVE (NEGATIVE) 11/10/17 18:10 Ur Phencyclidine Scrn NEGATIVE (NEGATIVE) 11/10/17 18:10 Amphetamines Screen NEGATIVE (NEGATIVE) 11/10/17 18:10 U Methamphetamines Scrn NEGATIVE (NEGATIVE) 11/10/17 18:10 U Benzodiazepines Scrn NEGATIVE (NEGATIVE) 11/10/17 18:10 U Cocaine Metab Screen NEGATIVE (NEGATIVE) 11/10/17 18:10 U Cannabinoids Screen NEGATIVE (NEGATIVE) 11/10/17 18:10 Ethyl Alcohol < 10 mg/dL (0-10) 11/10/17 16:37 RPR NONREACTIVE (NONREACTIVE) 11/10/17 16:37 - Physical Exam Vitals and I&O: Vital Signs Temp 97.9 F 11/16/17 17:13 Pulse 113 11/16/17 17:13 Resp 20 11/16/17 17:13 BP 92/71 11/16/17 17:13 Pulse Ox 97 11/16/17 17:13 Intake & Output 11/16/17 11/16/17 11/17/17 06:59 18:59 06:59 Intake Total 480 1000 Balance 480 1000 Intake: Oral 480 1000 Other: # Voids 2 3 Stool Characteristics Soft Soft Active Medications: Current Medications Acetaminophen (Tylenol) 650 mg PO Q4HR PRN PRN Reason: Mild Pain / Temp above 100 Stop: 01/10/18 00:16 Al Hydrox/Mg Hydrox/Simethicone (Maalox) 30 ml PO Q4HR PRN PRN Reason: GI DISTRESS Stop: 01/10/18 00:16 Albuterol/Ipratropium (Duoneb Neb) 3 ml HHN Q8HRT PRN PRN Reason: Shortness of Breath Stop: 01/10/18 00:16 Clozapine (Clozaril) 200 mg PO DAILY JOEL Stop: 01/11/18 05:58 Last Admin: 11/16/17 08:23 Dose: 200 mg Clozapine (Clozaril) 75 mg PO HS JOEL PRN Reason: Protocol Stop: 01/15/18 10:26 Divalproex Sodium (Depakote Dr) 250 mg PO Q8HR JOEL PRN Reason: Protocol Stop: 01/10/18 04:59 Last Admin: 11/16/17 12:55 Dose: 250 mg Docusate Sodium (Colace) 100 mg PO BID JOEL Stop: 01/10/18 08:59 Last Admin: 11/16/17 17:56 Dose: 100 mg Insulin Aspart (Novolog Insulin Sliding Scale) 0 units SUBQ 0630 JOEL PRN Reason: Protocol Stop: 01/10/18 06:29 Last Admin: 11/16/17 06:40 Dose: Not Given Lorazepam (Ativan) 0.5 mg PO Q6H PRN; Protocol PRN Reason: Agitation Stop: 01/14/18 11:12 Last Admin: 11/15/17 12:09 Dose: 0.5 mg Metoprolol Tartrate (Lopressor) 25 mg PO HS JOEL Stop: 01/10/18 20:59 Last Admin: 11/15/17 20:41 Dose: 25 mg Mirtazapine (Remeron) 15 mg PO HS JOEL PRN Reason: Protocol Stop: 01/10/18 20:59 Last Admin: 11/15/17 20:40 Dose: 15 mg Multivitamins/Vitamin C (Theragran) 1 tab PO DAILY JOEL Stop: 01/10/18 08:59 Last Admin: 11/16/17 08:24 Dose: 1 tab Ondansetron HCl (Zofran Odt) 4 mg PO Q4H PRN PRN Reason: Nausea / Vomiting Stop: 01/10/18 00:16 Pantoprazole Sodium (Protonix) 40 mg PO QDAC JOEL Stop: 01/10/18 07:29 Last Admin: 11/16/17 06:41 Dose: 40 mg Simvastatin (Zocor) 20 mg PO HS JOEL PRN Reason: Protocol Stop: 01/10/18 20:59 Last Admin: 11/15/17 20:40 Dose: 20 mg Tramadol HCl (Ultram) 50 mg PO Q8HR PRN PRN Reason: Pain (Moderate) Stop: 01/10/18 00:16 Zolpidem Tartrate (Ambien) 5 mg PO HS PRN PRN Reason: Insomnia Stop: 01/10/18 01:02 General: demented HEENT: NC/AT, PERRLA, EOMI, anicteric sclerae, throat clear Neck: Supple, No JVD, No thyromegaly, No LAD Lungs: CTAB Abdomen: non-tender, non-distended Extremities: clear Neurological: no change - Procedures Procedures: Procedures Procedure Code Date GROUP PSYCHOTHERAPY 95113 07/16/15 GROUP PSYCHOTHERAPY GZHZZZZ 07/16/15 INDIVID PSYCHOTHERAP NEC 94.39 09/06/13 OTHER GROUP THERAPY 94.44 05/03/14 RECREATIONAL THERAPY 93.81 08/25/12 Internal Medicine Assmt/Plan - Assessment Assessment: 1.DM. 2.HTN. 3 HYPERLIPIDEMIA. 4.DEMENTIA. - Plan Plan: CONTINUE ON CURRENT MEDICATION AND DIET. Nutritional Asmnt/Malnutr-PDOC - Dietary Evaluation Malnutrition Findings (Please click <Entered> for more info): Nutritional Asmnt/Malnutrition Start: 11/15/17 14: 32 Text: Status: Complete Freq: Document 11/15/17 14:32 [email or web address] (Rec: 11/15/17 14:35 [email or web address]) Nutritional Asmnt/Malnutrition Patient General Information Nutritional Screening Moderate Risk Diagnosis psychosis NOS Pertinent Medical Hx/Surgical Hx DM, HTN, HLD, psychosis Subjective Information Pt confused and depressed. Eating 75-100% of meals. Current Diet Order/ Nutrition Support mechanical soft, chopped, CCHO , MAURA Patient / S.O Not Indicated Pertinent Medications insulin, remeron, MVI, protonix Pertinent Labs POC: 84-107, hgba1c: 6.0 Nutritional Hx/Data Height 1.57 m Height (Calculated Centimeters) 157.5 Current Weight (lbs) 68.039 kg Weight (Calculated Kilograms) 68.0 Weight (Calculated Grams) 36479.9 [place] Body Weight 118 lbs % [place] Body Weight 127 Body Mass Index (BMI) 27.4 Weight Status Overweight GI Symptoms GI Symptoms None Last BM 11/13 Difficult in: None Skin Integrity/Comment: intact Current %PO Good (75-100%) Estimated Nutritional Goals BEE in Kcals: Adj wt of IBW Calories/Kcals/Kg 25-30 Kcals Calculated 3762-6632 kcals Protein: Adj wt of IBW Protein g/k-1.2 Protein Calculated 68-82 g Fluid: ml 1537-3114 mL (1 ml/kcal) Nutritional Problem 1. Problem Problem n/a Etiology none Signs/Symptoms: none Intervention/Recommendation Comments 1. Continue mechanical soft, chopped, CCHO, MAURA diet as ordered Expected Outcomes/Goals Expected Outcomes/Goals Goal: PO intake >50% montior wts, labs, skin, PO intake
--- NOTE | 2017-11-16 23:51 | Progress Notes ---
DATE: 11/16/2017 SUBJECTIVE: The patient is currently in the hospital due to combative behaviors, delusional and psychotic. The patient has been calm and cooperative and amenable to treatment. However, he remains reclusive and isolative. Still attesting to voices, very poor sleep, still desperate for help, desperate to feel calmer, desperate for the voices to go away. ASSESSMENT: The patient remains symptomatic, ongoing psychotic symptoms, ongoing hopeless and helpless thoughts and melancholy. PLAN: We will increase Clozaril today. Given his ongoing symptoms, he is not safe for discharge. We will also encourage socialization. [facility]# [id number]
[2017-11-17] MEDS: INSULIN ASPART SLIDING SCALE 100 UNITS/ML UNIT SUBQ SCH (06:38)
[2017-11-17] MEDS: Pantoprazole 40 mg EC Tab PO SCH (06:42)
[2017-11-17] MEDS: Multivitamin Tab PO SCH (09:00)
--- NOTE | 2017-11-17 17:17 | Internal Medicine Prog Note ---
Internal Medicine Subjective - Subjective Service Date: 11/17/17 Patient seen and examined:: with staff Patient is:: awake, verbal, in bed, denies any new complaints Per staff patient has:: no adverse event (HE FEELS WELL) Internal Medicine Objective - Results Result Diagrams: 11/10/17 16:37 11/10/17 16:37 Recent Labs: Laboratory Last Values WBC 5.4 Th/cmm (4.8-10.8) D 11/10/17 16:37 RBC 4.78 Mil/cmm (3.80-5.80) 11/10/17 16:37 Hgb 13.1 gm/dL (12-16) 11/10/17 16:37 Hct 40.2 % (41.0-60) L 11/10/17 16:37 MCV 84.0 fl (80-99) 11/10/17 16:37 MCH 27.3 pg (27.0-31.0) 11/10/17 16:37 MCHC Differential 32.5 pg (28.0-36.0) 11/10/17 16:37 RDW 15.8 % (11.5-20.0) 11/10/17 16:37 Plt Count 276 Th/cmm (150-400) D 11/10/17 16:37 MPV 8.0 fl 11/10/17 16:37 Neutrophils % 55.5 % (40.0-80.0) 11/10/17 16:37 Lymphocytes % 31.3 % (20.0-50.0) 11/10/17 16:37 Monocytes % 8.6 % (2.0-10.0) 11/10/17 16:37 Eosinophils % 4.2 % (0.0-5.0) 11/10/17 16:37 Basophils % 0.4 % (0.0-2.0) 11/10/17 16:37 Sodium 136 mEq/L (136-145) 11/10/17 16:37 Potassium 4.4 mEq/L (3.5-5.1) 11/10/17 16:37 Chloride 102 mEq/L (98-107) 11/10/17 16:37 Carbon Dioxide 27.6 mEq/L (21.0-31.0) 11/10/17 16:37 Anion Gap 10.8 (7.0-16.0) 11/10/17 16:37 BUN 18 mg/dL (7-25) 11/10/17 16:37 Creatinine 1.0 mg/dL (0.7-1.3) 11/10/17 16:37 Est GFR ( Amer) > 60.0 ml/min (>90) 11/10/17 16:37 Est GFR (Non-Af Amer) > 60.0 ml/min 11/10/17 16:37 BUN/Creatinine Ratio 18.0 11/10/17 16:37 Glucose 115 mg/dL (70-105) H 11/10/17 16:37 POC Glucose 85 MG/DL (70 - 105) 11/17/17 06:37 Hemoglobin A1c % 6.0 % (4.0-6.0) 11/10/17 16:37 Calcium 9.5 mg/dL (8.6-10.3) 11/10/17 16:37 Total Bilirubin 0.3 mg/dL (0.3-1.0) 11/10/17 16:37 AST 18 U/L (13-39) 11/10/17 16:37 ALT 11 U/L (7-52) 11/10/17 16:37 Alkaline Phosphatase 62 U/L (34-104) 11/10/17 16:37 Total Protein 6.7 gm/dL (6.0-8.3) 11/10/17 16:37 Albumin 4.2 gm/dL (4.2-5.5) 11/10/17 16:37 Globulin 2.5 gm/dL 11/10/17 16:37 Albumin/Globulin Ratio 1.7 (1.0-1.8) 11/10/17 16:37 Triglycerides 108 mg/dL (<150) 11/10/17 16:37 Cholesterol 157 mg/dL (<200) 11/10/17 16:37 LDL Cholesterol Direct 85 mg/dL (75-193) 11/10/17 16:37 HDL Cholesterol 58 mg/dL (23-92) 11/10/17 16:37 TSH 2.23 uIU/ml (0.34-5.60) 11/10/17 16:37 Urine Source CLEAN C 11/10/17 18:10 Urine Color YELLOW 11/10/17 18:10 Urine Clarity CLEAR (CLEAR) 11/10/17 18:10 Urine pH 7.5 (4.6 - 8.0) 11/10/17 18:10 Ur Specific [place] 1.015 (1.005-1.030) 11/10/17 18:10 Urine Protein NEGATIVE mg/dL (NEGATIVE) 11/10/17 18:10 Urine Glucose (UA) NEGATIVE mg/dL (NEGATIVE) 11/10/17 18:10 Urine Ketones NEGATIVE mg/dL (NEGATIVE) 11/10/17 18:10 Urine Blood NEGATIVE (NEGATIVE) 11/10/17 18:10 Urine Nitrate NEGATIVE (NEGATIVE) 11/10/17 18:10 Urine Bilirubin NEGATIVE (NEGATIVE) 11/10/17 18:10 Urine Urobilinogen 0.2 E.U./dL (0.2 - 1.0) 11/10/17 18:10 Ur Leukocyte Esterase NEGATIVE (NEGATIVE) 11/10/17 18:10 Urine RBC NONE SEEN /hpf (0-5) 11/10/17 18:10 Urine WBC NONE SEEN /hpf (0-5) 11/10/17 18:10 Ur Epithelial Cells NONE SEEN /lpf (FEW) 11/10/17 18:10 Urine Bacteria NONE SEEN /hpf (NONE SEEN) 11/10/17 18:10 Salicylates < 25.0 mg/L (30.0-100.0) L 11/10/17 16:37 Urine Opiates Screen NEGATIVE (NEGATIVE) 11/10/17 18:10 Urine Methadone Screen NEGATIVE (NEGATIVE) 11/10/17 18:10 Acetaminophen < 10.0 ug/mL (10.0-30.0) L 11/10/17 16:37 Ur Barbiturates Screen NEGATIVE (NEGATIVE) 11/10/17 18:10 Ur Tricyclics Screen NEGATIVE (NEGATIVE) 11/10/17 18:10 Ur Phencyclidine Scrn NEGATIVE (NEGATIVE) 11/10/17 18:10 Amphetamines Screen NEGATIVE (NEGATIVE) 11/10/17 18:10 U Methamphetamines Scrn NEGATIVE (NEGATIVE) 11/10/17 18:10 U Benzodiazepines Scrn NEGATIVE (NEGATIVE) 11/10/17 18:10 U Cocaine Metab Screen NEGATIVE (NEGATIVE) 11/10/17 18:10 U Cannabinoids Screen NEGATIVE (NEGATIVE) 11/10/17 18:10 Ethyl Alcohol < 10 mg/dL (0-10) 11/10/17 16:37 RPR NONREACTIVE (NONREACTIVE) 11/10/17 16:37 - Physical Exam Vitals and I&O: Vital Signs Temp 98.3 F 11/17/17 06:55 Pulse 94 11/17/17 08:44 Resp 18 11/17/17 08:46 BP 123/78 11/17/17 06:55 Pulse Ox 96 11/17/17 08:44 Intake & Output 11/16/17 11/17/17 11/17/17 18:59 06:59 18:59 Intake Total 1000 120 Balance 1000 120 Intake: Oral 1000 120 Other: # Voids 3 2 Stool Characteristics Soft Soft Soft Active Medications: Current Medications Acetaminophen (Tylenol) 650 mg PO Q4HR PRN PRN Reason: Mild Pain / Temp above 100 Stop: 01/10/18 00:16 Al Hydrox/Mg Hydrox/Simethicone (Maalox) 30 ml PO Q4HR PRN PRN Reason: GI DISTRESS Stop: 01/10/18 00:16 Albuterol/Ipratropium (Duoneb Neb) 3 ml HHN Q8HRT PRN PRN Reason: Shortness of Breath Stop: 01/10/18 00:16 Clozapine (Clozaril) 200 mg PO DAILY JOEL Stop: 01/11/18 05:58 Last Admin: 11/17/17 09:00 Dose: 200 mg Clozapine (Clozaril) 75 mg PO HS JOEL PRN Reason: Protocol Stop: 01/15/18 10:26 Last Admin: 11/16/17 21:06 Dose: 75 mg Divalproex Sodium (Depakote Dr) 250 mg PO Q8HR JOEL PRN Reason: Protocol Stop: 01/10/18 04:59 Last Admin: 11/17/17 13:33 Dose: 250 mg Docusate Sodium (Colace) 100 mg PO BID JOEL Stop: 01/10/18 08:59 Last Admin: 11/17/17 09:00 Dose: 100 mg Insulin Aspart (Novolog Insulin Sliding Scale) 0 units SUBQ 0630 JOEL PRN Reason: Protocol Stop: 01/10/18 06:29 Last Admin: 11/17/17 06:38 Dose: Not Given Lorazepam (Ativan) 0.5 mg PO Q6H PRN; Protocol PRN Reason: Agitation Stop: 01/14/18 11:12 Last Admin: 11/15/17 12:09 Dose: 0.5 mg Metoprolol Tartrate (Lopressor) 25 mg PO HS JOEL Stop: 01/10/18 20:59 Last Admin: 11/16/17 21:07 Dose: 25 mg Mirtazapine (Remeron) 15 mg PO HS JOEL PRN Reason: Protocol Stop: 01/10/18 20:59 Last Admin: 11/16/17 21:06 Dose: 15 mg Multivitamins/Vitamin C (Theragran) 1 tab PO DAILY JOEL Stop: 01/10/18 08:59 Last Admin: 11/17/17 09:00 Dose: 1 tab Ondansetron HCl (Zofran Odt) 4 mg PO Q4H PRN PRN Reason: Nausea / Vomiting Stop: 01/10/18 00:16 Pantoprazole Sodium (Protonix) 40 mg PO QDAC JOEL Stop: 01/10/18 07:29 Last Admin: 11/17/17 06:42 Dose: 40 mg Simvastatin (Zocor) 20 mg PO HS JOEL PRN Reason: Protocol Stop: 01/10/18 20:59 Last Admin: 11/16/17 21:07 Dose: 20 mg Tramadol HCl (Ultram) 50 mg PO Q8HR PRN PRN Reason: Pain (Moderate) Stop: 01/10/18 00:16 Zolpidem Tartrate (Ambien) 5 mg PO HS PRN PRN Reason: Insomnia Stop: 01/10/18 01:02 General: demented HEENT: NC/AT, PERRLA, EOMI, anicteric sclerae, throat clear Neck: Supple, No JVD, No thyromegaly, No LAD Lungs: CTAB Abdomen: non-tender, non-distended Extremities: clear Neurological: no change - Procedures Procedures: Procedures Procedure Code Date GROUP PSYCHOTHERAPY 47570 07/16/15 GROUP PSYCHOTHERAPY GZHZZZZ 07/16/15 INDIVID PSYCHOTHERAP NEC 94.39 09/06/13 OTHER GROUP THERAPY 94.44 05/03/14 RECREATIONAL THERAPY 93.81 08/25/12 Internal Medicine Assmt/Plan - Assessment Assessment: 1.DM. 2.HTN. 3 HYPERLIPIDEMIA. 4.DEMENTIA. - Plan Plan: CONTINUE ON CURRENT MEDICATION AND DIET. Nutritional Asmnt/Malnutr-PDOC - Dietary Evaluation Malnutrition Findings (Please click <Entered> for more info): Nutritional Asmnt/Malnutrition Start: 11/15/17 14: 32 Text: Status: Complete Freq: Document 11/15/17 14:32 [email or web address] (Rec: 11/15/17 14:35 [email or web address]) Nutritional Asmnt/Malnutrition Patient General Information Nutritional Screening Moderate Risk Diagnosis psychosis NOS Pertinent Medical Hx/Surgical Hx DM, HTN, HLD, psychosis Subjective Information Pt confused and depressed. Eating 75-100% of meals. Current Diet Order/ Nutrition Support mechanical soft, chopped, CCHO , MAURA Patient / S.O Not Indicated Pertinent Medications insulin, remeron, MVI, protonix Pertinent Labs POC: 84-107, hgba1c: 6.0 Nutritional Hx/Data Height 1.57 m Height (Calculated Centimeters) 157.5 Current Weight (lbs) 68.039 kg Weight (Calculated Kilograms) 68.0 Weight (Calculated Grams) 71079.9 [place] Body Weight 118 lbs % [place] Body Weight 127 Body Mass Index (BMI) 27.4 Weight Status Overweight GI Symptoms GI Symptoms None Last BM 11/13 Difficult in: None Skin Integrity/Comment: intact Current %PO Good (75-100%) Estimated Nutritional Goals BEE in Kcals: Adj wt of IBW Calories/Kcals/Kg 25-30 Kcals Calculated 1204-5813 kcals Protein: Adj wt of IBW Protein g/k-1.2 Protein Calculated 68-82 g Fluid: ml 2527-1736 mL (1 ml/kcal) Nutritional Problem 1. Problem Problem n/a Etiology none Signs/Symptoms: none Intervention/Recommendation Comments 1. Continue mechanical soft, chopped, CCHO, MAURA diet as ordered Expected Outcomes/Goals Expected Outcomes/Goals Goal: PO intake >50% montior wts, labs, skin, PO intake
--- NOTE | 2017-11-17 20:49 | Progress Notes ---
DATE: 11/17/2017 The patient is currently in the hospital due to delusional behavior, psychosis, voices. On [id number], it seems that he is less anxious. He is still attesting to voices. It seems he did sleep better last night, calmer, more cooperative, but still does prefer the voices to go away. ASSESSMENT: The patient remains symptomatic, ongoing voices, still melancholic, isolative and withdrawn; however, he seems to be calmer and tolerant of Clozaril. We will continue to monitor and follow up. JOB# [id number]
[2017-11-18] MEDS: INSULIN ASPART SLIDING SCALE 100 UNITS/ML UNIT SUBQ SCH (06:13)
[2017-11-18 06:23] LABS: % BASOPHILS 0.8 % (0.0-2.0); % EOSINOPHILS 6.2 % (0.0-5.0); % LYMPHOCYTES 31.5 % (20.0-50.0); % MONOCYTES 9.4 % (2.0-10.0); % NEUTROPHILS 52.1 % (40.0-80.0); EOSINOPHILE ABSOLUTE 0.4 Th/cmm (0.1-0.4); HEMATOCRIT 40.7 % (41.0-60); HEMOGLOBIN 13.4 gm/dL (12-16); LYMPHOCYTE ABSOLUTE 1.8 Th/cmm (1.5-3.0); MEAN CELL VOLUME 83.7 fl (80-99); MEAN CORPUSCULAR HEMOGLOBIN 27.7 pg (27.0-31.0); MEAN PLATELET VOLUME 8.2 fl; MONOCYTE ABSOLUTE 0.5 Th/cmm (0.3-1.0); PLATELET COUNT 266 Th/cmm (150-400); RED BLOOD COUNT 4.86 Mil/cmm (3.80-5.80); RED CELL DISTRIBUTION WIDTH 15.5 % (11.5-20.0); WHITE BLOOD COUNT 5.7 Th/cmm (4.8-10.8)
[2017-11-18] MEDS: Multivitamin Tab PO SCH (08:05)
[2017-11-18] MEDS: Pantoprazole 40 mg EC Tab PO SCH (08:05)
--- NOTE | 2017-11-18 20:07 | Internal Medicine Prog Note ---
Internal Medicine Subjective - Subjective Service Date: 11/18/17 Patient seen and examined:: with staff Patient is:: awake, verbal, in bed, denies any new complaints Per staff patient has:: no adverse event (HE FEELS WELL) Internal Medicine Objective - Results Result Diagrams: 11/18/17 06:20 11/10/17 16:37 Recent Labs: Laboratory Last Values WBC 5.7 Th/cmm (4.8-10.8) 11/18/17 06:20 RBC 4.86 Mil/cmm (3.80-5.80) 11/18/17 06:20 Hgb 13.4 gm/dL (12-16) 11/18/17 06:20 Hct 40.7 % (41.0-60) L 11/18/17 06:20 MCV 83.7 fl (80-99) 11/18/17 06:20 MCH 27.7 pg (27.0-31.0) 11/18/17 06:20 MCHC Differential 33.0 pg (28.0-36.0) 11/18/17 06:20 RDW 15.5 % (11.5-20.0) 11/18/17 06:20 Plt Count 266 Th/cmm (150-400) 11/18/17 06:20 MPV 8.2 fl 11/18/17 06:20 Neutrophils % 52.1 % (40.0-80.0) 11/18/17 06:20 Lymphocytes % 31.5 % (20.0-50.0) 11/18/17 06:20 Monocytes % 9.4 % (2.0-10.0) 11/18/17 06:20 Eosinophils % 6.2 % (0.0-5.0) H 11/18/17 06:20 Basophils % 0.8 % (0.0-2.0) 11/18/17 06:20 Sodium 136 mEq/L (136-145) 11/10/17 16:37 Potassium 4.4 mEq/L (3.5-5.1) 11/10/17 16:37 Chloride 102 mEq/L (98-107) 11/10/17 16:37 Carbon Dioxide 27.6 mEq/L (21.0-31.0) 11/10/17 16:37 Anion Gap 10.8 (7.0-16.0) 11/10/17 16:37 BUN 18 mg/dL (7-25) 11/10/17 16:37 Creatinine 1.0 mg/dL (0.7-1.3) 11/10/17 16:37 Est GFR ( Amer) > 60.0 ml/min (>90) 11/10/17 16:37 Est GFR (Non-Af Amer) > 60.0 ml/min 11/10/17 16:37 BUN/Creatinine Ratio 18.0 11/10/17 16:37 Glucose 115 mg/dL (70-105) H 11/10/17 16:37 POC Glucose 92 MG/DL (70 - 105) 11/18/17 06:13 Hemoglobin A1c % 6.0 % (4.0-6.0) 11/10/17 16:37 Calcium 9.5 mg/dL (8.6-10.3) 11/10/17 16:37 Total Bilirubin 0.3 mg/dL (0.3-1.0) 11/10/17 16:37 AST 18 U/L (13-39) 11/10/17 16:37 ALT 11 U/L (7-52) 11/10/17 16:37 Alkaline Phosphatase 62 U/L (34-104) 11/10/17 16:37 Total Protein 6.7 gm/dL (6.0-8.3) 11/10/17 16:37 Albumin 4.2 gm/dL (4.2-5.5) 11/10/17 16:37 Globulin 2.5 gm/dL 11/10/17 16:37 Albumin/Globulin Ratio 1.7 (1.0-1.8) 11/10/17 16:37 Triglycerides 108 mg/dL (<150) 11/10/17 16:37 Cholesterol 157 mg/dL (<200) 11/10/17 16:37 LDL Cholesterol Direct 85 mg/dL (75-193) 11/10/17 16:37 HDL Cholesterol 58 mg/dL (23-92) 11/10/17 16:37 TSH 2.23 uIU/ml (0.34-5.60) 11/10/17 16:37 Urine Source CLEAN C 11/10/17 18:10 Urine Color YELLOW 11/10/17 18:10 Urine Clarity CLEAR (CLEAR) 11/10/17 18:10 Urine pH 7.5 (4.6 - 8.0) 11/10/17 18:10 Ur Specific [place] 1.015 (1.005-1.030) 11/10/17 18:10 Urine Protein NEGATIVE mg/dL (NEGATIVE) 11/10/17 18:10 Urine Glucose (UA) NEGATIVE mg/dL (NEGATIVE) 11/10/17 18:10 Urine Ketones NEGATIVE mg/dL (NEGATIVE) 11/10/17 18:10 Urine Blood NEGATIVE (NEGATIVE) 11/10/17 18:10 Urine Nitrate NEGATIVE (NEGATIVE) 11/10/17 18:10 Urine Bilirubin NEGATIVE (NEGATIVE) 11/10/17 18:10 Urine Urobilinogen 0.2 E.U./dL (0.2 - 1.0) 11/10/17 18:10 Ur Leukocyte Esterase NEGATIVE (NEGATIVE) 11/10/17 18:10 Urine RBC NONE SEEN /hpf (0-5) 11/10/17 18:10 Urine WBC NONE SEEN /hpf (0-5) 11/10/17 18:10 Ur Epithelial Cells NONE SEEN /lpf (FEW) 11/10/17 18:10 Urine Bacteria NONE SEEN /hpf (NONE SEEN) 11/10/17 18:10 Salicylates < 25.0 mg/L (30.0-100.0) L 11/10/17 16:37 Urine Opiates Screen NEGATIVE (NEGATIVE) 11/10/17 18:10 Urine Methadone Screen NEGATIVE (NEGATIVE) 11/10/17 18:10 Acetaminophen < 10.0 ug/mL (10.0-30.0) L 11/10/17 16:37 Ur Barbiturates Screen NEGATIVE (NEGATIVE) 11/10/17 18:10 Ur Tricyclics Screen NEGATIVE (NEGATIVE) 11/10/17 18:10 Ur Phencyclidine Scrn NEGATIVE (NEGATIVE) 11/10/17 18:10 Amphetamines Screen NEGATIVE (NEGATIVE) 11/10/17 18:10 U Methamphetamines Scrn NEGATIVE (NEGATIVE) 11/10/17 18:10 U Benzodiazepines Scrn NEGATIVE (NEGATIVE) 11/10/17 18:10 U Cocaine Metab Screen NEGATIVE (NEGATIVE) 11/10/17 18:10 U Cannabinoids Screen NEGATIVE (NEGATIVE) 11/10/17 18:10 Ethyl Alcohol < 10 mg/dL (0-10) 11/10/17 16:37 RPR NONREACTIVE (NONREACTIVE) 11/10/17 16:37 - Physical Exam Vitals and I&O: Vital Signs Temp 97.8 F 11/18/17 15:17 Pulse 91 11/18/17 15:17 Resp 18 11/18/17 15:17 BP 117/72 11/18/17 15:17 Pulse Ox 96 11/18/17 15:17 Intake & Output 11/18/17 11/18/17 11/19/17 06:59 18:59 06:59 Intake Total 120 1200 Balance 120 1200 Intake: Oral 120 1200 Other: # Voids 2 Stool Characteristics Soft Active Medications: Current Medications Acetaminophen (Tylenol) 650 mg PO Q4HR PRN PRN Reason: Mild Pain / Temp above 100 Stop: 01/10/18 00:16 Al Hydrox/Mg Hydrox/Simethicone (Maalox) 30 ml PO Q4HR PRN PRN Reason: GI DISTRESS Stop: 01/10/18 00:16 Albuterol/Ipratropium (Duoneb Neb) 3 ml HHN Q8HRT PRN PRN Reason: Shortness of Breath Stop: 01/10/18 00:16 Clozapine (Clozaril) 200 mg PO DAILY [facility] Stop: 01/11/18 05:58 Last Admin: 11/18/17 08:04 Dose: 200 mg Clozapine (Clozaril) 100 mg PO HS JOEL PRN Reason: Protocol Stop: 01/17/18 06:57 Divalproex Sodium (Depakote Dr) 250 mg PO Q8HR JOEL PRN Reason: Protocol Stop: 01/10/18 04:59 Last Admin: 11/18/17 13:14 Dose: 250 mg Docusate Sodium (Colace) 100 mg PO BID JOEL Stop: 01/10/18 08:59 Last Admin: 11/18/17 16:02 Dose: 100 mg Insulin Aspart (Novolog Insulin Sliding Scale) 0 units SUBQ 0630 JOEL PRN Reason: Protocol Stop: 01/10/18 06:29 Last Admin: 11/18/17 06:13 Dose: Not Given Lorazepam (Ativan) 0.5 mg PO Q6H PRN; Protocol PRN Reason: Agitation Stop: 01/14/18 11:12 Last Admin: 11/15/17 12:09 Dose: 0.5 mg Metoprolol Tartrate (Lopressor) 25 mg PO HS JOEL Stop: 01/10/18 20:59 Last Admin: 11/17/17 21:42 Dose: 25 mg Mirtazapine (Remeron) 15 mg PO HS JOEL PRN Reason: Protocol Stop: 01/10/18 20:59 Last Admin: 11/17/17 21:44 Dose: 15 mg Multivitamins/Vitamin C (Theragran) 1 tab PO DAILY JOEL Stop: 01/10/18 08:59 Last Admin: 11/18/17 08:05 Dose: 1 tab Ondansetron HCl (Zofran Odt) 4 mg PO Q4H PRN PRN Reason: Nausea / Vomiting Stop: 01/10/18 00:16 Pantoprazole Sodium (Protonix) 40 mg PO QDAC JOEL Stop: 01/10/18 07:29 Last Admin: 11/18/17 08:05 Dose: 40 mg Simvastatin (Zocor) 20 mg PO HS JOEL PRN Reason: Protocol Stop: 01/10/18 20:59 Last Admin: 11/17/17 21:44 Dose: 20 mg Tramadol HCl (Ultram) 50 mg PO Q8HR PRN PRN Reason: Pain (Moderate) Stop: 01/10/18 00:16 Zolpidem Tartrate (Ambien) 5 mg PO HS PRN PRN Reason: Insomnia Stop: 01/10/18 01:02 General: demented HEENT: NC/AT, PERRLA, EOMI, anicteric sclerae, throat clear Neck: Supple, No JVD, No thyromegaly, No LAD Lungs: CTAB Abdomen: non-tender, non-distended Extremities: clear Neurological: no change - Procedures Procedures: Procedures Procedure Code Date GROUP PSYCHOTHERAPY 32195 07/16/15 GROUP PSYCHOTHERAPY GZHZZZZ 07/16/15 INDIVID PSYCHOTHERAP NEC 94.39 09/06/13 OTHER GROUP THERAPY 94.44 05/03/14 RECREATIONAL THERAPY 93.81 08/25/12 Internal Medicine Assmt/Plan - Assessment Assessment: 1.DM. 2.HTN. 3 HYPERLIPIDEMIA. 4.DEMENTIA. - Plan Plan: CONTINUE ON CURRENT MEDICATION AND DIET. Nutritional Asmnt/Malnutr-PDOC - Dietary Evaluation Malnutrition Findings (Please click <Entered> for more info): Nutritional Asmnt/Malnutrition Start: 11/15/17 14: 32 Text: Status: Complete Freq: Document 11/15/17 14:32 [email or web address] (Rec: 11/15/17 14:35 [email or web address]) Nutritional Asmnt/Malnutrition Patient General Information Nutritional Screening Moderate Risk Diagnosis psychosis NOS Pertinent Medical Hx/Surgical Hx DM, HTN, HLD, psychosis Subjective Information Pt confused and depressed. Eating 75-100% of meals. Current Diet Order/ Nutrition Support mechanical soft, chopped, CCHO , MAURA Patient / S.O Not Indicated Pertinent Medications insulin, remeron, MVI, protonix Pertinent Labs POC: 84-107, hgba1c: 6.0 Nutritional Hx/Data Height 1.57 m Height (Calculated Centimeters) 157.5 Current Weight (lbs) 68.039 kg Weight (Calculated Kilograms) 68.0 Weight (Calculated Grams) 98697.9 [place] Body Weight 118 lbs % [place] Body Weight 127 Body Mass Index (BMI) 27.4 Weight Status Overweight GI Symptoms GI Symptoms None Last BM 11/13 Difficult in: None Skin Integrity/Comment: intact Current %PO Good (75-100%) Estimated Nutritional Goals BEE in Kcals: Adj wt of IBW Calories/Kcals/Kg 25-30 Kcals Calculated 4029-5867 kcals Protein: Adj wt of IBW Protein g/k-1.2 Protein Calculated 68-82 g Fluid: ml 0251-1729 mL (1 ml/kcal) Nutritional Problem 1. Problem Problem n/a Etiology none Signs/Symptoms: none Intervention/Recommendation Comments 1. Continue mechanical soft, chopped, CCHO, MAURA diet as ordered Expected Outcomes/Goals Expected Outcomes/Goals Goal: PO intake >50% montior wts, labs, skin, PO intake
--- NOTE | 2017-11-19 01:12 | Progress Notes ---
DATE: 11/18/2017 SUBJECTIVE: The patient was seen today, 11/18/2017. The patient in the hospital, still hearing mumbling, still psychotic, hearing voices, still with poor sleep, anxiety, hopelessness and despair, desperate for help, isolative and occlusive. MEDICATIONS: Reviewed. ASSESSMENT: The patient remains symptomatic, rambling voices, still hopeless, verbalizing, poor sleep. PLAN: We will continue to monitor. We will continue to make dose adjustments to his medications. I will be increasing his Clozaril dosing today. JOB# [id number]
[2017-11-19] MEDS: Pantoprazole 40 mg EC Tab PO SCH (06:47)
[2017-11-19] MEDS: INSULIN ASPART SLIDING SCALE 100 UNITS/ML UNIT SUBQ SCH (06:50)
[2017-11-19] MEDS: Multivitamin Tab PO SCH (08:16)
--- NOTE | 2017-11-19 21:10 | General Progress Note ---
Subjective - Review of Systems Service Date: 11/19/17 Subjective: resting comfortably no distress Objective - Results Result Diagrams: 11/18/17 06:20 11/10/17 16:37 Recent Labs: Laboratory Last Values WBC 5.7 Th/cmm (4.8-10.8) 11/18/17 06:20 RBC 4.86 Mil/cmm (3.80-5.80) 11/18/17 06:20 Hgb 13.4 gm/dL (12-16) 11/18/17 06:20 Hct 40.7 % (41.0-60) L 11/18/17 06:20 MCV 83.7 fl (80-99) 11/18/17 06:20 MCH 27.7 pg (27.0-31.0) 11/18/17 06:20 MCHC Differential 33.0 pg (28.0-36.0) 11/18/17 06:20 RDW 15.5 % (11.5-20.0) 11/18/17 06:20 Plt Count 266 Th/cmm (150-400) 11/18/17 06:20 MPV 8.2 fl 11/18/17 06:20 Neutrophils % 52.1 % (40.0-80.0) 11/18/17 06:20 Lymphocytes % 31.5 % (20.0-50.0) 11/18/17 06:20 Monocytes % 9.4 % (2.0-10.0) 11/18/17 06:20 Eosinophils % 6.2 % (0.0-5.0) H 11/18/17 06:20 Basophils % 0.8 % (0.0-2.0) 11/18/17 06:20 Sodium 136 mEq/L (136-145) 11/10/17 16:37 Potassium 4.4 mEq/L (3.5-5.1) 11/10/17 16:37 Chloride 102 mEq/L (98-107) 11/10/17 16:37 Carbon Dioxide 27.6 mEq/L (21.0-31.0) 11/10/17 16:37 Anion Gap 10.8 (7.0-16.0) 11/10/17 16:37 BUN 18 mg/dL (7-25) 11/10/17 16:37 Creatinine 1.0 mg/dL (0.7-1.3) 11/10/17 16:37 Est GFR ( Amer) > 60.0 ml/min (>90) 11/10/17 16:37 Est GFR (Non-Af Amer) > 60.0 ml/min 11/10/17 16:37 BUN/Creatinine Ratio 18.0 11/10/17 16:37 Glucose 115 mg/dL (70-105) H 11/10/17 16:37 POC Glucose 92 MG/DL (70 - 105) 11/18/17 06:13 Hemoglobin A1c % 6.0 % (4.0-6.0) 11/10/17 16:37 Calcium 9.5 mg/dL (8.6-10.3) 11/10/17 16:37 Total Bilirubin 0.3 mg/dL (0.3-1.0) 11/10/17 16:37 AST 18 U/L (13-39) 11/10/17 16:37 ALT 11 U/L (7-52) 11/10/17 16:37 Alkaline Phosphatase 62 U/L (34-104) 11/10/17 16:37 Total Protein 6.7 gm/dL (6.0-8.3) 11/10/17 16:37 Albumin 4.2 gm/dL (4.2-5.5) 11/10/17 16:37 Globulin 2.5 gm/dL 11/10/17 16:37 Albumin/Globulin Ratio 1.7 (1.0-1.8) 11/10/17 16:37 Triglycerides 108 mg/dL (<150) 11/10/17 16:37 Cholesterol 157 mg/dL (<200) 11/10/17 16:37 LDL Cholesterol Direct 85 mg/dL (75-193) 11/10/17 16:37 HDL Cholesterol 58 mg/dL (23-92) 11/10/17 16:37 TSH 2.23 uIU/ml (0.34-5.60) 11/10/17 16:37 Urine Source CLEAN C 11/10/17 18:10 Urine Color YELLOW 11/10/17 18:10 Urine Clarity CLEAR (CLEAR) 11/10/17 18:10 Urine pH 7.5 (4.6 - 8.0) 11/10/17 18:10 Ur Specific [place] 1.015 (1.005-1.030) 11/10/17 18:10 Urine Protein NEGATIVE mg/dL (NEGATIVE) 11/10/17 18:10 Urine Glucose (UA) NEGATIVE mg/dL (NEGATIVE) 11/10/17 18:10 Urine Ketones NEGATIVE mg/dL (NEGATIVE) 11/10/17 18:10 Urine Blood NEGATIVE (NEGATIVE) 11/10/17 18:10 Urine Nitrate NEGATIVE (NEGATIVE) 11/10/17 18:10 Urine Bilirubin NEGATIVE (NEGATIVE) 11/10/17 18:10 Urine Urobilinogen 0.2 E.U./dL (0.2 - 1.0) 11/10/17 18:10 Ur Leukocyte Esterase NEGATIVE (NEGATIVE) 11/10/17 18:10 Urine RBC NONE SEEN /hpf (0-5) 11/10/17 18:10 Urine WBC NONE SEEN /hpf (0-5) 11/10/17 18:10 Ur Epithelial Cells NONE SEEN /lpf (FEW) 11/10/17 18:10 Urine Bacteria NONE SEEN /hpf (NONE SEEN) 11/10/17 18:10 Salicylates < 25.0 mg/L (30.0-100.0) L 11/10/17 16:37 Urine Opiates Screen NEGATIVE (NEGATIVE) 11/10/17 18:10 Urine Methadone Screen NEGATIVE (NEGATIVE) 11/10/17 18:10 Acetaminophen < 10.0 ug/mL (10.0-30.0) L 11/10/17 16:37 Ur Barbiturates Screen NEGATIVE (NEGATIVE) 11/10/17 18:10 Ur Tricyclics Screen NEGATIVE (NEGATIVE) 11/10/17 18:10 Ur Phencyclidine Scrn NEGATIVE (NEGATIVE) 11/10/17 18:10 Amphetamines Screen NEGATIVE (NEGATIVE) 11/10/17 18:10 U Methamphetamines Scrn NEGATIVE (NEGATIVE) 11/10/17 18:10 U Benzodiazepines Scrn NEGATIVE (NEGATIVE) 11/10/17 18:10 U Cocaine Metab Screen NEGATIVE (NEGATIVE) 11/10/17 18:10 U Cannabinoids Screen NEGATIVE (NEGATIVE) 11/10/17 18:10 Ethyl Alcohol < 10 mg/dL (0-10) 11/10/17 16:37 RPR NONREACTIVE (NONREACTIVE) 11/10/17 16:37 - Physical Exam Vitals and I&O: Vital Signs Temp 97.9 F 11/19/17 20:40 Pulse 98 11/19/17 20:57 Resp 19 11/19/17 20:40 BP 104/77 11/19/17 20:57 Pulse Ox 96 11/19/17 20:40 Intake & Output 11/19/17 11/19/17 11/20/17 06:59 18:59 06:59 Intake Total 500 1200 240 Balance 500 1200 240 Intake: Oral 500 1200 240 Other: # Voids 1 3 1 Active Medications: Current Medications Acetaminophen (Tylenol) 650 mg PO Q4HR PRN PRN Reason: Mild Pain / Temp above 100 Stop: 01/10/18 00:16 Al Hydrox/Mg Hydrox/Simethicone (Maalox) 30 ml PO Q4HR PRN PRN Reason: GI DISTRESS Stop: 01/10/18 00:16 Albuterol/Ipratropium (Duoneb Neb) 3 ml HHN Q8HRT PRN PRN Reason: Shortness of Breath Stop: 01/10/18 00:16 Clozapine (Clozaril) 200 mg PO DAILY JOEL Stop: 01/11/18 05:58 Last Admin: 11/19/17 08:16 Dose: 200 mg Clozapine (Clozaril) 100 mg PO HS JOEL PRN Reason: Protocol Stop: 01/17/18 06:57 Last Admin: 11/19/17 20:56 Dose: 100 mg Divalproex Sodium (Depakote Dr) 250 mg PO Q8HR JOEL PRN Reason: Protocol Stop: 01/10/18 04:59 Last Admin: 11/19/17 20:56 Dose: 250 mg Docusate Sodium (Colace) 100 mg PO BID JOEL Stop: 01/10/18 08:59 Last Admin: 11/19/17 16:06 Dose: 100 mg Insulin Aspart (Novolog Insulin Sliding Scale) 0 units SUBQ 0630 JOEL PRN Reason: Protocol Stop: 01/10/18 06:29 Last Admin: 11/19/17 06:50 Dose: Not Given Lorazepam (Ativan) 0.5 mg PO Q6H PRN; Protocol PRN Reason: Agitation Stop: 01/14/18 11:12 Last Admin: 11/15/17 12:09 Dose: 0.5 mg Metoprolol Tartrate (Lopressor) 25 mg PO HS JOEL Stop: 01/10/18 20:59 Last Admin: 11/19/17 20:57 Dose: 25 mg Mirtazapine (Remeron) 15 mg PO HS JOEL PRN Reason: Protocol Stop: 01/10/18 20:59 Last Admin: 11/19/17 20:57 Dose: 15 mg Multivitamins/Vitamin C (Theragran) 1 tab PO DAILY JOEL Stop: 01/10/18 08:59 Last Admin: 11/19/17 08:16 Dose: 1 tab Ondansetron HCl (Zofran Odt) 4 mg PO Q4H PRN PRN Reason: Nausea / Vomiting Stop: 01/10/18 00:16 Pantoprazole Sodium (Protonix) 40 mg PO QDAC JOEL Stop: 01/10/18 07:29 Last Admin: 11/19/17 06:47 Dose: 40 mg Simvastatin (Zocor) 20 mg PO HS JOEL PRN Reason: Protocol Stop: 01/10/18 20:59 Last Admin: 11/19/17 20:58 Dose: 20 mg Tramadol HCl (Ultram) 50 mg PO Q8HR PRN PRN Reason: Pain (Moderate) Stop: 01/10/18 00:16 Zolpidem Tartrate (Ambien) 5 mg PO HS PRN PRN Reason: Insomnia Stop: 01/10/18 01:02 General: No acute distress HEENT: Atraumatic, PERRLA, EOMI Neck: Supple, JVD Cardiovascular: Regular rate, Normal S1, Normal S2 Lungs: Clear to auscultation Abdomen: Bowel sounds, Soft - Procedures Procedures: Procedures Procedure Code Date GROUP PSYCHOTHERAPY 00922 07/16/15 GROUP PSYCHOTHERAPY GZHZZZZ 07/16/15 INDIVID PSYCHOTHERAP NEC 94.39 09/06/13 OTHER GROUP THERAPY 94.44 05/03/14 RECREATIONAL THERAPY 93.81 08/25/12 Assessment/Plan - Assessment Assessment: 1.DM. 2.HTN. 3 HYPERLIPIDEMIA. 4.DEMENTIA. - Plan Plan: cont current treatment Nutritional Asmnt/Malnutr-PDOC - Dietary Evaluation Malnutrition Findings (Please click <Entered> for more info): Nutritional Asmnt/Malnutrition Start: 11/15/17 14: 32 Text: Status: Complete Freq: Document 11/15/17 14:32 [email or web address] (Rec: 11/15/17 14:35 [email or web address]) Nutritional Asmnt/Malnutrition Patient General Information Nutritional Screening Moderate Risk Diagnosis psychosis NOS Pertinent Medical Hx/Surgical Hx DM, HTN, HLD, psychosis Subjective Information Pt confused and depressed. Eating 75-100% of meals. Current Diet Order/ Nutrition Support mechanical soft, chopped, CCHO , MAURA Patient / S.O Not Indicated Pertinent Medications insulin, remeron, MVI, protonix Pertinent Labs POC: 84-107, hgba1c: 6.0 Nutritional Hx/Data Height 1.57 m Height (Calculated Centimeters) 157.5 Current Weight (lbs) 68.039 kg Weight (Calculated Kilograms) 68.0 Weight (Calculated Grams) 34679.9 [place] Body Weight 118 lbs % [place] Body Weight 127 Body Mass Index (BMI) 27.4 Weight Status Overweight GI Symptoms GI Symptoms None Last BM 11/13 Difficult in: None Skin Integrity/Comment: intact Current %PO Good (75-100%) Estimated Nutritional Goals BEE in Kcals: Adj wt of IBW Calories/Kcals/Kg 25-30 Kcals Calculated 2314-4295 kcals Protein: Adj wt of IBW Protein g/k-1.2 Protein Calculated 68-82 g Fluid: ml 1302-2402 mL (1 ml/kcal) Nutritional Problem 1. Problem Problem n/a Etiology none Signs/Symptoms: none Intervention/Recommendation Comments 1. Continue mechanical soft, chopped, CCHO, MAURA diet as ordered Expected Outcomes/Goals Expected Outcomes/Goals Goal: PO intake >50% montior wts, labs, skin, PO intake
[2017-11-20] MEDS: INSULIN ASPART SLIDING SCALE 100 UNITS/ML UNIT SUBQ SCH (06:31)
[2017-11-20] MEDS: Pantoprazole 40 mg EC Tab PO SCH (06:52)
[2017-11-20] MEDS: Multivitamin Tab PO SCH (08:13)
--- NOTE | 2017-11-20 10:37 | General Progress Note ---
Subjective - Review of Systems Service Date: 11/20/17 Subjective: resting comfortably no distress Objective - Results Result Diagrams: 11/18/17 06:20 11/10/17 16:37 Recent Labs: Laboratory Last Values WBC 5.7 Th/cmm (4.8-10.8) 11/18/17 06:20 RBC 4.86 Mil/cmm (3.80-5.80) 11/18/17 06:20 Hgb 13.4 gm/dL (12-16) 11/18/17 06:20 Hct 40.7 % (41.0-60) L 11/18/17 06:20 MCV 83.7 fl (80-99) 11/18/17 06:20 MCH 27.7 pg (27.0-31.0) 11/18/17 06:20 MCHC Differential 33.0 pg (28.0-36.0) 11/18/17 06:20 RDW 15.5 % (11.5-20.0) 11/18/17 06:20 Plt Count 266 Th/cmm (150-400) 11/18/17 06:20 MPV 8.2 fl 11/18/17 06:20 Neutrophils % 52.1 % (40.0-80.0) 11/18/17 06:20 Lymphocytes % 31.5 % (20.0-50.0) 11/18/17 06:20 Monocytes % 9.4 % (2.0-10.0) 11/18/17 06:20 Eosinophils % 6.2 % (0.0-5.0) H 11/18/17 06:20 Basophils % 0.8 % (0.0-2.0) 11/18/17 06:20 Sodium 136 mEq/L (136-145) 11/10/17 16:37 Potassium 4.4 mEq/L (3.5-5.1) 11/10/17 16:37 Chloride 102 mEq/L (98-107) 11/10/17 16:37 Carbon Dioxide 27.6 mEq/L (21.0-31.0) 11/10/17 16:37 Anion Gap 10.8 (7.0-16.0) 11/10/17 16:37 BUN 18 mg/dL (7-25) 11/10/17 16:37 Creatinine 1.0 mg/dL (0.7-1.3) 11/10/17 16:37 Est GFR ( Amer) > 60.0 ml/min (>90) 11/10/17 16:37 Est GFR (Non-Af Amer) > 60.0 ml/min 11/10/17 16:37 BUN/Creatinine Ratio 18.0 11/10/17 16:37 Glucose 115 mg/dL (70-105) H 11/10/17 16:37 POC Glucose 93 MG/DL (70 - 105) 11/20/17 06:27 Hemoglobin A1c % 6.0 % (4.0-6.0) 11/10/17 16:37 Calcium 9.5 mg/dL (8.6-10.3) 11/10/17 16:37 Total Bilirubin 0.3 mg/dL (0.3-1.0) 11/10/17 16:37 AST 18 U/L (13-39) 11/10/17 16:37 ALT 11 U/L (7-52) 11/10/17 16:37 Alkaline Phosphatase 62 U/L (34-104) 11/10/17 16:37 Total Protein 6.7 gm/dL (6.0-8.3) 11/10/17 16:37 Albumin 4.2 gm/dL (4.2-5.5) 11/10/17 16:37 Globulin 2.5 gm/dL 11/10/17 16:37 Albumin/Globulin Ratio 1.7 (1.0-1.8) 11/10/17 16:37 Triglycerides 108 mg/dL (<150) 11/10/17 16:37 Cholesterol 157 mg/dL (<200) 11/10/17 16:37 LDL Cholesterol Direct 85 mg/dL (75-193) 11/10/17 16:37 HDL Cholesterol 58 mg/dL (23-92) 11/10/17 16:37 TSH 2.23 uIU/ml (0.34-5.60) 11/10/17 16:37 Urine Source CLEAN C 11/10/17 18:10 Urine Color YELLOW 11/10/17 18:10 Urine Clarity CLEAR (CLEAR) 11/10/17 18:10 Urine pH 7.5 (4.6 - 8.0) 11/10/17 18:10 Ur Specific [place] 1.015 (1.005-1.030) 11/10/17 18:10 Urine Protein NEGATIVE mg/dL (NEGATIVE) 11/10/17 18:10 Urine Glucose (UA) NEGATIVE mg/dL (NEGATIVE) 11/10/17 18:10 Urine Ketones NEGATIVE mg/dL (NEGATIVE) 11/10/17 18:10 Urine Blood NEGATIVE (NEGATIVE) 11/10/17 18:10 Urine Nitrate NEGATIVE (NEGATIVE) 11/10/17 18:10 Urine Bilirubin NEGATIVE (NEGATIVE) 11/10/17 18:10 Urine Urobilinogen 0.2 E.U./dL (0.2 - 1.0) 11/10/17 18:10 Ur Leukocyte Esterase NEGATIVE (NEGATIVE) 11/10/17 18:10 Urine RBC NONE SEEN /hpf (0-5) 11/10/17 18:10 Urine WBC NONE SEEN /hpf (0-5) 11/10/17 18:10 Ur Epithelial Cells NONE SEEN /lpf (FEW) 11/10/17 18:10 Urine Bacteria NONE SEEN /hpf (NONE SEEN) 11/10/17 18:10 Salicylates < 25.0 mg/L (30.0-100.0) L 11/10/17 16:37 Urine Opiates Screen NEGATIVE (NEGATIVE) 11/10/17 18:10 Urine Methadone Screen NEGATIVE (NEGATIVE) 11/10/17 18:10 Acetaminophen < 10.0 ug/mL (10.0-30.0) L 11/10/17 16:37 Ur Barbiturates Screen NEGATIVE (NEGATIVE) 11/10/17 18:10 Ur Tricyclics Screen NEGATIVE (NEGATIVE) 11/10/17 18:10 Ur Phencyclidine Scrn NEGATIVE (NEGATIVE) 11/10/17 18:10 Amphetamines Screen NEGATIVE (NEGATIVE) 11/10/17 18:10 U Methamphetamines Scrn NEGATIVE (NEGATIVE) 11/10/17 18:10 U Benzodiazepines Scrn NEGATIVE (NEGATIVE) 11/10/17 18:10 U Cocaine Metab Screen NEGATIVE (NEGATIVE) 11/10/17 18:10 U Cannabinoids Screen NEGATIVE (NEGATIVE) 11/10/17 18:10 Ethyl Alcohol < 10 mg/dL (0-10) 11/10/17 16:37 RPR NONREACTIVE (NONREACTIVE) 11/10/17 16:37 - Physical Exam Vitals and I&O: Vital Signs Temp 97.9 F 11/19/17 20:40 Pulse 85 11/20/17 07:50 Resp 18 11/20/17 07:50 BP 104/77 11/19/17 20:57 Pulse Ox 97 11/20/17 07:50 Intake & Output 11/19/17 11/20/17 11/20/17 18:59 06:59 18:59 Intake Total 1200 240 Balance 1200 240 Intake: Oral 1200 240 Other: # Voids 3 1 Active Medications: Current Medications Acetaminophen (Tylenol) 650 mg PO Q4HR PRN PRN Reason: Mild Pain / Temp above 100 Stop: 01/10/18 00:16 Al Hydrox/Mg Hydrox/Simethicone (Maalox) 30 ml PO Q4HR PRN PRN Reason: GI DISTRESS Stop: 01/10/18 00:16 Albuterol/Ipratropium (Duoneb Neb) 3 ml HHN Q8HRT PRN PRN Reason: Shortness of Breath Stop: 01/10/18 00:16 Clozapine (Clozaril) 200 mg PO DAILY [facility] Stop: 01/11/18 05:58 Last Admin: 11/20/17 08:13 Dose: 200 mg Clozapine (Clozaril) 100 mg PO HS JOEL PRN Reason: Protocol Stop: 01/17/18 06:57 Last Admin: 11/19/17 20:56 Dose: 100 mg Divalproex Sodium (Depakote Dr) 250 mg PO Q8HR JOEL PRN Reason: Protocol Stop: 01/10/18 04:59 Last Admin: 11/20/17 05:00 Dose: 250 mg Docusate Sodium (Colace) 100 mg PO BID JOEL Stop: 01/10/18 08:59 Last Admin: 11/20/17 08:13 Dose: 100 mg Insulin Aspart (Novolog Insulin Sliding Scale) 0 units SUBQ 0630 JOEL PRN Reason: Protocol Stop: 01/10/18 06:29 Last Admin: 11/20/17 06:31 Dose: Not Given Lorazepam (Ativan) 0.5 mg PO Q6H PRN; Protocol PRN Reason: Agitation Stop: 01/14/18 11:12 Last Admin: 11/15/17 12:09 Dose: 0.5 mg Metoprolol Tartrate (Lopressor) 25 mg PO HS JOEL Stop: 01/10/18 20:59 Last Admin: 11/19/17 20:57 Dose: 25 mg Mirtazapine (Remeron) 15 mg PO HS JOEL PRN Reason: Protocol Stop: 01/10/18 20:59 Last Admin: 11/19/17 20:57 Dose: 15 mg Multivitamins/Vitamin C (Theragran) 1 tab PO DAILY JOEL Stop: 01/10/18 08:59 Last Admin: 11/20/17 08:13 Dose: 1 tab Ondansetron HCl (Zofran Odt) 4 mg PO Q4H PRN PRN Reason: Nausea / Vomiting Stop: 01/10/18 00:16 Pantoprazole Sodium (Protonix) 40 mg PO QDAC JOEL Stop: 01/10/18 07:29 Last Admin: 11/20/17 06:52 Dose: 40 mg Simvastatin (Zocor) 20 mg PO HS JOEL PRN Reason: Protocol Stop: 01/10/18 20:59 Last Admin: 11/19/17 20:58 Dose: 20 mg Tramadol HCl (Ultram) 50 mg PO Q8HR PRN PRN Reason: Pain (Moderate) Stop: 01/10/18 00:16 Zolpidem Tartrate (Ambien) 5 mg PO HS PRN PRN Reason: Insomnia Stop: 01/10/18 01:02 General: No acute distress HEENT: Atraumatic, PERRLA, EOMI Neck: Supple, JVD Cardiovascular: Regular rate, Normal S1, Normal S2 Lungs: Clear to auscultation Abdomen: Bowel sounds, Soft - Procedures Procedures: Procedures Procedure Code Date GROUP PSYCHOTHERAPY 05658 07/16/15 GROUP PSYCHOTHERAPY GZHZZZZ 07/16/15 INDIVID PSYCHOTHERAP NEC 94.39 09/06/13 OTHER GROUP THERAPY 94.44 05/03/14 RECREATIONAL THERAPY 93.81 08/25/12 Assessment/Plan - Assessment Assessment: 1.DM. 2.HTN. 3 HYPERLIPIDEMIA. 4.DEMENTIA. - Plan Plan: cont current treatment Nutritional Asmnt/Malnutr-PDOC - Dietary Evaluation Malnutrition Findings (Please click <Entered> for more info): Nutritional Asmnt/Malnutrition Start: 11/15/17 14: 32 Text: Status: Complete Freq: Document 11/15/17 14:32 [email or web address] (Rec: 11/15/17 14:35 [email or web address]) Nutritional Asmnt/Malnutrition Patient General Information Nutritional Screening Moderate Risk Diagnosis psychosis NOS Pertinent Medical Hx/Surgical Hx DM, HTN, HLD, psychosis Subjective Information Pt confused and depressed. Eating 75-100% of meals. Current Diet Order/ Nutrition Support mechanical soft, chopped, CCHO , MAURA Patient / S.O Not Indicated Pertinent Medications insulin, remeron, MVI, protonix Pertinent Labs POC: 84-107, hgba1c: 6.0 Nutritional Hx/Data Height 1.57 m Height (Calculated Centimeters) 157.5 Current Weight (lbs) 68.039 kg Weight (Calculated Kilograms) 68.0 Weight (Calculated Grams) 89984.9 [place] Body Weight 118 lbs % [place] Body Weight 127 Body Mass Index (BMI) 27.4 Weight Status Overweight GI Symptoms GI Symptoms None Last BM 11/13 Difficult in: None Skin Integrity/Comment: intact Current %PO Good (75-100%) Estimated Nutritional Goals BEE in Kcals: Adj wt of IBW Calories/Kcals/Kg 25-30 Kcals Calculated 5207-4259 kcals Protein: Adj wt of IBW Protein g/k-1.2 Protein Calculated 68-82 g Fluid: ml 7548-4815 mL (1 ml/kcal) Nutritional Problem 1. Problem Problem n/a Etiology none Signs/Symptoms: none Intervention/Recommendation Comments 1. Continue mechanical soft, chopped, CCHO, MAURA diet as ordered Expected Outcomes/Goals Expected Outcomes/Goals Goal: PO intake >50% montior wts, labs, skin, PO intake
--- NOTE | 2017-11-20 10:55 | Progress Notes ---
DATE: SUBJECTIVE: The patient was seen, chart reviewed and discussed with staff. The patient continues to be actively psychotic, responding to internal stimuli seen, talking to himself. The patient continues to be isolative and very aloof. He has, however, been compliant with his medications. PLAN: The patient continues to be acutely psychotic, so that he will require inpatient care center treatment. We will monitor patient on a daily basis for response of treatment and titrate meds as needed. [facility]# [id number]
--- NOTE | 2017-11-20 22:20 | Progress Notes ---
DATE: SUBJECTIVE: The patient was seen, chart reviewed and discussed with staff. The patient continues to be actively psychotic, responding to internal stimuli, seen talking and mumbling to himself. He has been compliant with medications and denies any undue side effects. PLAN: The patient continues to be actively psychotic, so that he will require continued inpatient care for stabilization and treatment. We will monitor patient on a daily basis for response to medication and titrate medications as needed. [facility]# [id number]
[2017-11-21] MEDS: INSULIN ASPART SLIDING SCALE 100 UNITS/ML UNIT SUBQ SCH (06:15)
[2017-11-21] MEDS: Pantoprazole 40 mg EC Tab PO SCH (06:29)
[2017-11-21] MEDS: Multivitamin Tab PO SCH (09:27)
--- NOTE | 2017-11-21 19:52 | Internal Medicine Prog Note ---
Internal Medicine Subjective - Subjective Service Date: 11/21/17 Patient seen and examined:: with staff Patient is:: awake, verbal, in bed, denies any new complaints Per staff patient has:: no adverse event (HE FEELS WELL) Internal Medicine Objective - Results Result Diagrams: 11/18/17 06:20 11/10/17 16:37 Recent Labs: Laboratory Last Values WBC 5.7 Th/cmm (4.8-10.8) 11/18/17 06:20 RBC 4.86 Mil/cmm (3.80-5.80) 11/18/17 06:20 Hgb 13.4 gm/dL (12-16) 11/18/17 06:20 Hct 40.7 % (41.0-60) L 11/18/17 06:20 MCV 83.7 fl (80-99) 11/18/17 06:20 MCH 27.7 pg (27.0-31.0) 11/18/17 06:20 MCHC Differential 33.0 pg (28.0-36.0) 11/18/17 06:20 RDW 15.5 % (11.5-20.0) 11/18/17 06:20 Plt Count 266 Th/cmm (150-400) 11/18/17 06:20 MPV 8.2 fl 11/18/17 06:20 Neutrophils % 52.1 % (40.0-80.0) 11/18/17 06:20 Lymphocytes % 31.5 % (20.0-50.0) 11/18/17 06:20 Monocytes % 9.4 % (2.0-10.0) 11/18/17 06:20 Eosinophils % 6.2 % (0.0-5.0) H 11/18/17 06:20 Basophils % 0.8 % (0.0-2.0) 11/18/17 06:20 Sodium 136 mEq/L (136-145) 11/10/17 16:37 Potassium 4.4 mEq/L (3.5-5.1) 11/10/17 16:37 Chloride 102 mEq/L (98-107) 11/10/17 16:37 Carbon Dioxide 27.6 mEq/L (21.0-31.0) 11/10/17 16:37 Anion Gap 10.8 (7.0-16.0) 11/10/17 16:37 BUN 18 mg/dL (7-25) 11/10/17 16:37 Creatinine 1.0 mg/dL (0.7-1.3) 11/10/17 16:37 Est GFR ( Amer) > 60.0 ml/min (>90) 11/10/17 16:37 Est GFR (Non-Af Amer) > 60.0 ml/min 11/10/17 16:37 BUN/Creatinine Ratio 18.0 11/10/17 16:37 Glucose 115 mg/dL (70-105) H 11/10/17 16:37 POC Glucose 93 MG/DL (70 - 105) 11/20/17 06:27 Hemoglobin A1c % 6.0 % (4.0-6.0) 11/10/17 16:37 Calcium 9.5 mg/dL (8.6-10.3) 11/10/17 16:37 Total Bilirubin 0.3 mg/dL (0.3-1.0) 11/10/17 16:37 AST 18 U/L (13-39) 11/10/17 16:37 ALT 11 U/L (7-52) 11/10/17 16:37 Alkaline Phosphatase 62 U/L (34-104) 11/10/17 16:37 Total Protein 6.7 gm/dL (6.0-8.3) 11/10/17 16:37 Albumin 4.2 gm/dL (4.2-5.5) 11/10/17 16:37 Globulin 2.5 gm/dL 11/10/17 16:37 Albumin/Globulin Ratio 1.7 (1.0-1.8) 11/10/17 16:37 Triglycerides 108 mg/dL (<150) 11/10/17 16:37 Cholesterol 157 mg/dL (<200) 11/10/17 16:37 LDL Cholesterol Direct 85 mg/dL (75-193) 11/10/17 16:37 HDL Cholesterol 58 mg/dL (23-92) 11/10/17 16:37 TSH 2.23 uIU/ml (0.34-5.60) 11/10/17 16:37 Urine Source CLEAN C 11/10/17 18:10 Urine Color YELLOW 11/10/17 18:10 Urine Clarity CLEAR (CLEAR) 11/10/17 18:10 Urine pH 7.5 (4.6 - 8.0) 11/10/17 18:10 Ur Specific [place] 1.015 (1.005-1.030) 11/10/17 18:10 Urine Protein NEGATIVE mg/dL (NEGATIVE) 11/10/17 18:10 Urine Glucose (UA) NEGATIVE mg/dL (NEGATIVE) 11/10/17 18:10 Urine Ketones NEGATIVE mg/dL (NEGATIVE) 11/10/17 18:10 Urine Blood NEGATIVE (NEGATIVE) 11/10/17 18:10 Urine Nitrate NEGATIVE (NEGATIVE) 11/10/17 18:10 Urine Bilirubin NEGATIVE (NEGATIVE) 11/10/17 18:10 Urine Urobilinogen 0.2 E.U./dL (0.2 - 1.0) 11/10/17 18:10 Ur Leukocyte Esterase NEGATIVE (NEGATIVE) 11/10/17 18:10 Urine RBC NONE SEEN /hpf (0-5) 11/10/17 18:10 Urine WBC NONE SEEN /hpf (0-5) 11/10/17 18:10 Ur Epithelial Cells NONE SEEN /lpf (FEW) 11/10/17 18:10 Urine Bacteria NONE SEEN /hpf (NONE SEEN) 11/10/17 18:10 Salicylates < 25.0 mg/L (30.0-100.0) L 11/10/17 16:37 Urine Opiates Screen NEGATIVE (NEGATIVE) 11/10/17 18:10 Urine Methadone Screen NEGATIVE (NEGATIVE) 11/10/17 18:10 Acetaminophen < 10.0 ug/mL (10.0-30.0) L 11/10/17 16:37 Ur Barbiturates Screen NEGATIVE (NEGATIVE) 11/10/17 18:10 Ur Tricyclics Screen NEGATIVE (NEGATIVE) 11/10/17 18:10 Ur Phencyclidine Scrn NEGATIVE (NEGATIVE) 11/10/17 18:10 Amphetamines Screen NEGATIVE (NEGATIVE) 11/10/17 18:10 U Methamphetamines Scrn NEGATIVE (NEGATIVE) 11/10/17 18:10 U Benzodiazepines Scrn NEGATIVE (NEGATIVE) 11/10/17 18:10 U Cocaine Metab Screen NEGATIVE (NEGATIVE) 11/10/17 18:10 U Cannabinoids Screen NEGATIVE (NEGATIVE) 11/10/17 18:10 Ethyl Alcohol < 10 mg/dL (0-10) 11/10/17 16:37 RPR NONREACTIVE (NONREACTIVE) 11/10/17 16:37 - Physical Exam Vitals and I&O: Vital Signs Temp 97.7 F 11/21/17 17:54 Pulse 113 11/21/17 17:54 Resp 18 11/21/17 17:54 BP 116/64 11/21/17 17:54 Pulse Ox 99 11/21/17 17:54 Intake & Output 11/21/17 11/21/17 11/22/17 06:59 18:59 06:59 Other: Stool Characteristics Soft Active Medications: Current Medications Acetaminophen (Tylenol) 650 mg PO Q4HR PRN PRN Reason: Mild Pain / Temp above 100 Stop: 01/10/18 00:16 Al Hydrox/Mg Hydrox/Simethicone (Maalox) 30 ml PO Q4HR PRN PRN Reason: GI DISTRESS Stop: 01/10/18 00:16 Albuterol/Ipratropium (Duoneb Neb) 3 ml HHN Q8HRT PRN PRN Reason: Shortness of Breath Stop: 01/10/18 00:16 Clozapine (Clozaril) 200 mg PO DAILY JOEL Stop: 01/11/18 05:58 Last Admin: 11/21/17 09:27 Dose: 200 mg Clozapine (Clozaril) 100 mg PO HS JOEL PRN Reason: Protocol Stop: 01/17/18 06:57 Last Admin: 11/20/17 21:15 Dose: 100 mg Divalproex Sodium (Depakote Dr) 250 mg PO Q8HR JOEL PRN Reason: Protocol Stop: 01/10/18 04:59 Last Admin: 11/21/17 13:35 Dose: Not Given Docusate Sodium (Colace) 100 mg PO BID JOEL Stop: 01/10/18 08:59 Last Admin: 11/21/17 17:16 Dose: Not Given Insulin Aspart (Novolog Insulin Sliding Scale) 0 units SUBQ 0630 JOEL PRN Reason: Protocol Stop: 01/10/18 06:29 Last Admin: 11/21/17 06:15 Dose: Not Given Lorazepam (Ativan) 0.5 mg PO Q6H PRN; Protocol PRN Reason: Agitation Stop: 01/14/18 11:12 Last Admin: 11/15/17 12:09 Dose: 0.5 mg Metoprolol Tartrate (Lopressor) 25 mg PO HS JOEL Stop: 01/10/18 20:59 Last Admin: 11/20/17 21:16 Dose: 25 mg Mirtazapine (Remeron) 30 mg PO HS JOEL PRN Reason: Protocol Stop: 01/20/18 20:59 Multivitamins/Vitamin C (Theragran) 1 tab PO DAILY JOEL Stop: 01/10/18 08:59 Last Admin: 11/21/17 09:27 Dose: 1 tab Ondansetron HCl (Zofran Odt) 4 mg PO Q4H PRN PRN Reason: Nausea / Vomiting Stop: 01/10/18 00:16 Pantoprazole Sodium (Protonix) 40 mg PO QDAC JOEL Stop: 01/10/18 07:29 Last Admin: 11/21/17 06:29 Dose: 40 mg Simvastatin (Zocor) 20 mg PO HS JOEL PRN Reason: Protocol Stop: 01/10/18 20:59 Last Admin: 11/20/17 21:16 Dose: 20 mg Tramadol HCl (Ultram) 50 mg PO Q8HR PRN PRN Reason: Pain (Moderate) Stop: 01/10/18 00:16 Zolpidem Tartrate (Ambien) 5 mg PO HS PRN PRN Reason: Insomnia Stop: 01/10/18 01:02 General: demented HEENT: NC/AT, PERRLA, EOMI, anicteric sclerae, throat clear Neck: Supple, No JVD, No thyromegaly, No LAD Lungs: CTAB Abdomen: non-tender, non-distended Extremities: clear Neurological: no change - Procedures Procedures: Procedures Procedure Code Date GROUP PSYCHOTHERAPY 40624 07/16/15 GROUP PSYCHOTHERAPY GZHZZZZ 07/16/15 INDIVID PSYCHOTHERAP NEC 94.39 09/06/13 OTHER GROUP THERAPY 94.44 05/03/14 RECREATIONAL THERAPY 93.81 08/25/12 Internal Medicine Assmt/Plan - Assessment Assessment: 1.DM. 2.HTN. 3 HYPERLIPIDEMIA. 4.DEMENTIA. - Plan Plan: CONTINUE ON CURRENT MEDICATION AND DIET. Nutritional Asmnt/Malnutr-PDOC - Dietary Evaluation Malnutrition Findings (Please click <Entered> for more info): Nutritional Asmnt/Malnutrition Start: 11/15/17 14: 32 Text: Status: Complete Freq: Document 11/15/17 14:32 [email or web address] (Rec: 11/15/17 14:35 [email or web address]) Nutritional Asmnt/Malnutrition Patient General Information Nutritional Screening Moderate Risk Diagnosis psychosis NOS Pertinent Medical Hx/Surgical Hx DM, HTN, HLD, psychosis Subjective Information Pt confused and depressed. Eating 75-100% of meals. Current Diet Order/ Nutrition Support mechanical soft, chopped, CCHO , MAURA Patient / S.O Not Indicated Pertinent Medications insulin, remeron, MVI, protonix Pertinent Labs POC: 84-107, hgba1c: 6.0 Nutritional Hx/Data Height 1.57 m Height (Calculated Centimeters) 157.5 Current Weight (lbs) 68.039 kg Weight (Calculated Kilograms) 68.0 Weight (Calculated Grams) 27640.9 [place] Body Weight 118 lbs % [place] Body Weight 127 Body Mass Index (BMI) 27.4 Weight Status Overweight GI Symptoms GI Symptoms None Last BM 11/13 Difficult in: None Skin Integrity/Comment: intact Current %PO Good (75-100%) Estimated Nutritional Goals BEE in Kcals: Adj wt of IBW Calories/Kcals/Kg 25-30 Kcals Calculated 6465-7123 kcals Protein: Adj wt of IBW Protein g/k-1.2 Protein Calculated 68-82 g Fluid: ml 7697-4724 mL (1 ml/kcal) Nutritional Problem 1. Problem Problem n/a Etiology none Signs/Symptoms: none Intervention/Recommendation Comments 1. Continue mechanical soft, chopped, CCHO, MAURA diet as ordered Expected Outcomes/Goals Expected Outcomes/Goals Goal: PO intake >50% montior wts, labs, skin, PO intake
--- NOTE | 2017-11-22 01:55 | Progress Notes ---
DATE: 11/21/2017 Case was discussed with staff of the patient, reviewed records. This is a patient of mine that was readmitted on 11/10/2017. He was agitated and hallucinating. He reports the voices were getting bad. The patient has multiple prior admissions. He was combative and agitated. He continues to be depressed. He is feeling hopeless, poor sleep, and poor appetite. The patient is single, never , no children. The patient has a history of being on Clozaril in the past and currently he is on clozapine 200 mg daily and 100 mg at bedtime, and Depakote 250 mg 3 times a day with no side effects, no constipation, no extrapyramidal symptoms. He is also on Remeron 50 mg at bedtime, multivitamins, simvastatin and he reports that he is not sleeping great, so I will be increasing his Remeron to 30 mg at bedtime. He continues to be internally preoccupied. Continues to be unpredictable, impulsive, and needing redirection. Continues not ready to go because of his symptoms, lack of sleep, psychosis, and agitation. We will continue outpatient group therapy, milieu therapy and adjust medications. [facility]# [id number]
[2017-11-22] MEDS: INSULIN ASPART SLIDING SCALE 100 UNITS/ML UNIT SUBQ SCH (05:46)
[2017-11-22] MEDS: Multivitamin Tab PO SCH (08:30)
[2017-11-22] MEDS: Pantoprazole 40 mg EC Tab PO SCH (08:30)
--- NOTE | 2017-11-22 19:31 | Internal Medicine Prog Note ---
Internal Medicine Subjective - Subjective Service Date: 11/22/17 Patient seen and examined:: with staff Patient is:: awake, verbal, in bed, denies any new complaints Per staff patient has:: no adverse event (HE FEELS WELL) Internal Medicine Objective - Results Result Diagrams: 11/18/17 06:20 11/10/17 16:37 Recent Labs: Laboratory Last Values WBC 5.7 Th/cmm (4.8-10.8) 11/18/17 06:20 RBC 4.86 Mil/cmm (3.80-5.80) 11/18/17 06:20 Hgb 13.4 gm/dL (12-16) 11/18/17 06:20 Hct 40.7 % (41.0-60) L 11/18/17 06:20 MCV 83.7 fl (80-99) 11/18/17 06:20 MCH 27.7 pg (27.0-31.0) 11/18/17 06:20 MCHC Differential 33.0 pg (28.0-36.0) 11/18/17 06:20 RDW 15.5 % (11.5-20.0) 11/18/17 06:20 Plt Count 266 Th/cmm (150-400) 11/18/17 06:20 MPV 8.2 fl 11/18/17 06:20 Neutrophils % 52.1 % (40.0-80.0) 11/18/17 06:20 Lymphocytes % 31.5 % (20.0-50.0) 11/18/17 06:20 Monocytes % 9.4 % (2.0-10.0) 11/18/17 06:20 Eosinophils % 6.2 % (0.0-5.0) H 11/18/17 06:20 Basophils % 0.8 % (0.0-2.0) 11/18/17 06:20 Sodium 136 mEq/L (136-145) 11/10/17 16:37 Potassium 4.4 mEq/L (3.5-5.1) 11/10/17 16:37 Chloride 102 mEq/L (98-107) 11/10/17 16:37 Carbon Dioxide 27.6 mEq/L (21.0-31.0) 11/10/17 16:37 Anion Gap 10.8 (7.0-16.0) 11/10/17 16:37 BUN 18 mg/dL (7-25) 11/10/17 16:37 Creatinine 1.0 mg/dL (0.7-1.3) 11/10/17 16:37 Est GFR ( Amer) > 60.0 ml/min (>90) 11/10/17 16:37 Est GFR (Non-Af Amer) > 60.0 ml/min 11/10/17 16:37 BUN/Creatinine Ratio 18.0 11/10/17 16:37 Glucose 115 mg/dL (70-105) H 11/10/17 16:37 POC Glucose 78 MG/DL (70 - 105) 11/22/17 16:08 Hemoglobin A1c % 6.0 % (4.0-6.0) 11/10/17 16:37 Calcium 9.5 mg/dL (8.6-10.3) 11/10/17 16:37 Total Bilirubin 0.3 mg/dL (0.3-1.0) 11/10/17 16:37 AST 18 U/L (13-39) 11/10/17 16:37 ALT 11 U/L (7-52) 11/10/17 16:37 Alkaline Phosphatase 62 U/L (34-104) 11/10/17 16:37 Total Protein 6.7 gm/dL (6.0-8.3) 11/10/17 16:37 Albumin 4.2 gm/dL (4.2-5.5) 11/10/17 16:37 Globulin 2.5 gm/dL 11/10/17 16:37 Albumin/Globulin Ratio 1.7 (1.0-1.8) 11/10/17 16:37 Triglycerides 108 mg/dL (<150) 11/10/17 16:37 Cholesterol 157 mg/dL (<200) 11/10/17 16:37 LDL Cholesterol Direct 85 mg/dL (75-193) 11/10/17 16:37 HDL Cholesterol 58 mg/dL (23-92) 11/10/17 16:37 TSH 2.23 uIU/ml (0.34-5.60) 11/10/17 16:37 Urine Source CLEAN C 11/10/17 18:10 Urine Color YELLOW 11/10/17 18:10 Urine Clarity CLEAR (CLEAR) 11/10/17 18:10 Urine pH 7.5 (4.6 - 8.0) 11/10/17 18:10 Ur Specific [place] 1.015 (1.005-1.030) 11/10/17 18:10 Urine Protein NEGATIVE mg/dL (NEGATIVE) 11/10/17 18:10 Urine Glucose (UA) NEGATIVE mg/dL (NEGATIVE) 11/10/17 18:10 Urine Ketones NEGATIVE mg/dL (NEGATIVE) 11/10/17 18:10 Urine Blood NEGATIVE (NEGATIVE) 11/10/17 18:10 Urine Nitrate NEGATIVE (NEGATIVE) 11/10/17 18:10 Urine Bilirubin NEGATIVE (NEGATIVE) 11/10/17 18:10 Urine Urobilinogen 0.2 E.U./dL (0.2 - 1.0) 11/10/17 18:10 Ur Leukocyte Esterase NEGATIVE (NEGATIVE) 11/10/17 18:10 Urine RBC NONE SEEN /hpf (0-5) 11/10/17 18:10 Urine WBC NONE SEEN /hpf (0-5) 11/10/17 18:10 Ur Epithelial Cells NONE SEEN /lpf (FEW) 11/10/17 18:10 Urine Bacteria NONE SEEN /hpf (NONE SEEN) 11/10/17 18:10 Salicylates < 25.0 mg/L (30.0-100.0) L 11/10/17 16:37 Urine Opiates Screen NEGATIVE (NEGATIVE) 11/10/17 18:10 Urine Methadone Screen NEGATIVE (NEGATIVE) 11/10/17 18:10 Acetaminophen < 10.0 ug/mL (10.0-30.0) L 11/10/17 16:37 Ur Barbiturates Screen NEGATIVE (NEGATIVE) 11/10/17 18:10 Ur Tricyclics Screen NEGATIVE (NEGATIVE) 11/10/17 18:10 Ur Phencyclidine Scrn NEGATIVE (NEGATIVE) 11/10/17 18:10 Amphetamines Screen NEGATIVE (NEGATIVE) 11/10/17 18:10 U Methamphetamines Scrn NEGATIVE (NEGATIVE) 11/10/17 18:10 U Benzodiazepines Scrn NEGATIVE (NEGATIVE) 11/10/17 18:10 U Cocaine Metab Screen NEGATIVE (NEGATIVE) 11/10/17 18:10 U Cannabinoids Screen NEGATIVE (NEGATIVE) 11/10/17 18:10 Ethyl Alcohol < 10 mg/dL (0-10) 11/10/17 16:37 RPR NONREACTIVE (NONREACTIVE) 11/10/17 16:37 - Physical Exam Vitals and I&O: Vital Signs Temp 98.8 F 11/22/17 16:07 Pulse 94 11/22/17 16:07 Resp 18 11/22/17 16:07 BP 120/76 11/22/17 16:07 Pulse Ox 98 11/22/17 16:07 Intake & Output 11/22/17 11/22/17 11/23/17 06:59 18:59 06:59 Intake Total 1800 Balance 1800 Intake: Oral 1800 Other: # Voids 4 # Bowel Movements 0 Active Medications: Current Medications Acetaminophen (Tylenol) 650 mg PO Q4HR PRN PRN Reason: Mild Pain / Temp above 100 Stop: 01/10/18 00:16 Al Hydrox/Mg Hydrox/Simethicone (Maalox) 30 ml PO Q4HR PRN PRN Reason: GI DISTRESS Stop: 01/10/18 00:16 Albuterol/Ipratropium (Duoneb Neb) 3 ml HHN Q8HRT PRN PRN Reason: Shortness of Breath Stop: 01/10/18 00:16 Clozapine (Clozaril) 200 mg PO DAILY JOEL Stop: 01/11/18 05:58 Last Admin: 11/22/17 08:30 Dose: 200 mg Clozapine (Clozaril) 100 mg PO HS JOEL PRN Reason: Protocol Stop: 01/17/18 06:57 Last Admin: 11/21/17 20:35 Dose: 100 mg Divalproex Sodium (Depakote Dr) 250 mg PO Q8HR JOEL PRN Reason: Protocol Stop: 01/10/18 04:59 Last Admin: 11/22/17 14:17 Dose: 250 mg Docusate Sodium (Colace) 100 mg PO BID JOEL Stop: 01/10/18 08:59 Last Admin: 11/22/17 16:57 Dose: 100 mg Insulin Aspart (Novolog Insulin Sliding Scale) 0 units SUBQ 0630 JOEL PRN Reason: Protocol Stop: 01/10/18 06:29 Last Admin: 11/22/17 05:46 Dose: Not Given Lorazepam (Ativan) 0.5 mg PO Q6H PRN; Protocol PRN Reason: Agitation Stop: 01/14/18 11:12 Last Admin: 11/21/17 20:49 Dose: 0.5 mg Metoprolol Tartrate (Lopressor) 25 mg PO HS JOEL Stop: 01/10/18 20:59 Last Admin: 11/21/17 20:34 Dose: 25 mg Mirtazapine (Remeron) 30 mg PO HS JOEL PRN Reason: Protocol Stop: 01/20/18 20:59 Last Admin: 11/21/17 20:35 Dose: 30 mg Multivitamins/Vitamin C (Theragran) 1 tab PO DAILY JOEL Stop: 01/10/18 08:59 Last Admin: 11/22/17 08:30 Dose: 1 tab Ondansetron HCl (Zofran Odt) 4 mg PO Q4H PRN PRN Reason: Nausea / Vomiting Stop: 01/10/18 00:16 Pantoprazole Sodium (Protonix) 40 mg PO QDAC JOEL Stop: 01/10/18 07:29 Last Admin: 11/22/17 08:30 Dose: 40 mg Simvastatin (Zocor) 20 mg PO HS JOEL PRN Reason: Protocol Stop: 01/10/18 20:59 Last Admin: 11/21/17 20:34 Dose: 20 mg Tramadol HCl (Ultram) 50 mg PO Q8HR PRN PRN Reason: Pain (Moderate) Stop: 01/10/18 00:16 Zolpidem Tartrate (Ambien) 5 mg PO HS PRN PRN Reason: Insomnia Stop: 01/10/18 01:02 Last Admin: 11/21/17 20:49 Dose: 5 mg General: demented HEENT: NC/AT, PERRLA, EOMI, anicteric sclerae, throat clear Neck: Supple, No JVD, No thyromegaly, No LAD Lungs: CTAB Abdomen: non-tender, non-distended Extremities: clear Neurological: no change - Procedures Procedures: Procedures Procedure Code Date GROUP PSYCHOTHERAPY 83090 07/16/15 GROUP PSYCHOTHERAPY GZHZZZZ 07/16/15 INDIVID PSYCHOTHERAP NEC 94.39 09/06/13 OTHER GROUP THERAPY 94.44 05/03/14 RECREATIONAL THERAPY 93.81 08/25/12 Internal Medicine Assmt/Plan - Assessment Assessment: 1.DM. 2.HTN. 3 HYPERLIPIDEMIA. 4.DEMENTIA. - Plan Plan: CONTINUE ON CURRENT MEDICATION AND DIET. Nutritional Asmnt/Malnutr-PDOC - Dietary Evaluation Malnutrition Findings (Please click <Entered> for more info): Nutritional Asmnt/Malnutrition Start: 11/15/17 14: 32 Text: Status: Complete Freq: Document 11/15/17 14:32 [email or web address] (Rec: 11/15/17 14:35 [email or web address]) Nutritional Asmnt/Malnutrition Patient General Information Nutritional Screening Moderate Risk Diagnosis psychosis NOS Pertinent Medical Hx/Surgical Hx DM, HTN, HLD, psychosis Subjective Information Pt confused and depressed. Eating 75-100% of meals. Current Diet Order/ Nutrition Support mechanical soft, chopped, CCHO , MAURA Patient / S.O Not Indicated Pertinent Medications insulin, remeron, MVI, protonix Pertinent Labs POC: 84-107, hgba1c: 6.0 Nutritional Hx/Data Height 1.57 m Height (Calculated Centimeters) 157.5 Current Weight (lbs) 68.039 kg Weight (Calculated Kilograms) 68.0 Weight (Calculated Grams) 28951.9 [place] Body Weight 118 lbs % [place] Body Weight 127 Body Mass Index (BMI) 27.4 Weight Status Overweight GI Symptoms GI Symptoms None Last BM 11/13 Difficult in: None Skin Integrity/Comment: intact Current %PO Good (75-100%) Estimated Nutritional Goals BEE in Kcals: Adj wt of IBW Calories/Kcals/Kg 25-30 Kcals Calculated 9529-8290 kcals Protein: Adj wt of IBW Protein g/k-1.2 Protein Calculated 68-82 g Fluid: ml 1556-7553 mL (1 ml/kcal) Nutritional Problem 1. Problem Problem n/a Etiology none Signs/Symptoms: none Intervention/Recommendation Comments 1. Continue mechanical soft, chopped, CCHO, MAURA diet as ordered Expected Outcomes/Goals Expected Outcomes/Goals Goal: PO intake >50% montior wts, labs, skin, PO intake
--- NOTE | 2017-11-22 23:12 | Progress Notes ---
DATE: 11/22/2017 SUBJECTIVE: Case was discussed with staff of the patient and reviewed records. The patient continues to be internally preoccupied, stays in his room. Continues to be unable to make safe plan for self-care. Continues to be unpredictable, impulsive, needing redirection, isolating himself. PLAN: I did decrease his mirtazapine yesterday to 15 mg at bedtime. His lab work showed his hematology with low hematocrit at 40.7 and high eosinophils, the rest was within normal range. Chemistry panel shows blood sugar to be within normal range. No other lab work was available. We will continue to have the patient in group therapy, milieu therapy, adjust medication as needed. JOB# [id number]
[2017-11-23] MEDS: Pantoprazole 40 mg EC Tab PO SCH (06:41)
[2017-11-23] MEDS: INSULIN ASPART SLIDING SCALE 100 UNITS/ML UNIT SUBQ SCH (06:41)
[2017-11-23] MEDS: Multivitamin Tab PO SCH (09:56)
--- NOTE | 2017-11-23 21:03 | Internal Medicine Prog Note ---
Internal Medicine Subjective - Subjective Service Date: 11/23/17 Patient seen and examined:: with staff Patient is:: awake, verbal, in bed, denies any new complaints Per staff patient has:: no adverse event (HE FEELS WELL) Internal Medicine Objective - Results Result Diagrams: 11/18/17 06:20 11/10/17 16:37 Recent Labs: Laboratory Last Values WBC 5.7 Th/cmm (4.8-10.8) 11/18/17 06:20 RBC 4.86 Mil/cmm (3.80-5.80) 11/18/17 06:20 Hgb 13.4 gm/dL (12-16) 11/18/17 06:20 Hct 40.7 % (41.0-60) L 11/18/17 06:20 MCV 83.7 fl (80-99) 11/18/17 06:20 MCH 27.7 pg (27.0-31.0) 11/18/17 06:20 MCHC Differential 33.0 pg (28.0-36.0) 11/18/17 06:20 RDW 15.5 % (11.5-20.0) 11/18/17 06:20 Plt Count 266 Th/cmm (150-400) 11/18/17 06:20 MPV 8.2 fl 11/18/17 06:20 Neutrophils % 52.1 % (40.0-80.0) 11/18/17 06:20 Lymphocytes % 31.5 % (20.0-50.0) 11/18/17 06:20 Monocytes % 9.4 % (2.0-10.0) 11/18/17 06:20 Eosinophils % 6.2 % (0.0-5.0) H 11/18/17 06:20 Basophils % 0.8 % (0.0-2.0) 11/18/17 06:20 Sodium 136 mEq/L (136-145) 11/10/17 16:37 Potassium 4.4 mEq/L (3.5-5.1) 11/10/17 16:37 Chloride 102 mEq/L (98-107) 11/10/17 16:37 Carbon Dioxide 27.6 mEq/L (21.0-31.0) 11/10/17 16:37 Anion Gap 10.8 (7.0-16.0) 11/10/17 16:37 BUN 18 mg/dL (7-25) 11/10/17 16:37 Creatinine 1.0 mg/dL (0.7-1.3) 11/10/17 16:37 Est GFR ( Amer) > 60.0 ml/min (>90) 11/10/17 16:37 Est GFR (Non-Af Amer) > 60.0 ml/min 11/10/17 16:37 BUN/Creatinine Ratio 18.0 11/10/17 16:37 Glucose 115 mg/dL (70-105) H 11/10/17 16:37 POC Glucose 78 MG/DL (70 - 105) 11/22/17 16:08 Hemoglobin A1c % 6.0 % (4.0-6.0) 11/10/17 16:37 Calcium 9.5 mg/dL (8.6-10.3) 11/10/17 16:37 Total Bilirubin 0.3 mg/dL (0.3-1.0) 11/10/17 16:37 AST 18 U/L (13-39) 11/10/17 16:37 ALT 11 U/L (7-52) 11/10/17 16:37 Alkaline Phosphatase 62 U/L (34-104) 11/10/17 16:37 Total Protein 6.7 gm/dL (6.0-8.3) 11/10/17 16:37 Albumin 4.2 gm/dL (4.2-5.5) 11/10/17 16:37 Globulin 2.5 gm/dL 11/10/17 16:37 Albumin/Globulin Ratio 1.7 (1.0-1.8) 11/10/17 16:37 Triglycerides 108 mg/dL (<150) 11/10/17 16:37 Cholesterol 157 mg/dL (<200) 11/10/17 16:37 LDL Cholesterol Direct 85 mg/dL (75-193) 11/10/17 16:37 HDL Cholesterol 58 mg/dL (23-92) 11/10/17 16:37 TSH 2.23 uIU/ml (0.34-5.60) 11/10/17 16:37 Urine Source CLEAN C 11/10/17 18:10 Urine Color YELLOW 11/10/17 18:10 Urine Clarity CLEAR (CLEAR) 11/10/17 18:10 Urine pH 7.5 (4.6 - 8.0) 11/10/17 18:10 Ur Specific [place] 1.015 (1.005-1.030) 11/10/17 18:10 Urine Protein NEGATIVE mg/dL (NEGATIVE) 11/10/17 18:10 Urine Glucose (UA) NEGATIVE mg/dL (NEGATIVE) 11/10/17 18:10 Urine Ketones NEGATIVE mg/dL (NEGATIVE) 11/10/17 18:10 Urine Blood NEGATIVE (NEGATIVE) 11/10/17 18:10 Urine Nitrate NEGATIVE (NEGATIVE) 11/10/17 18:10 Urine Bilirubin NEGATIVE (NEGATIVE) 11/10/17 18:10 Urine Urobilinogen 0.2 E.U./dL (0.2 - 1.0) 11/10/17 18:10 Ur Leukocyte Esterase NEGATIVE (NEGATIVE) 11/10/17 18:10 Urine RBC NONE SEEN /hpf (0-5) 11/10/17 18:10 Urine WBC NONE SEEN /hpf (0-5) 11/10/17 18:10 Ur Epithelial Cells NONE SEEN /lpf (FEW) 11/10/17 18:10 Urine Bacteria NONE SEEN /hpf (NONE SEEN) 11/10/17 18:10 Salicylates < 25.0 mg/L (30.0-100.0) L 11/10/17 16:37 Urine Opiates Screen NEGATIVE (NEGATIVE) 11/10/17 18:10 Urine Methadone Screen NEGATIVE (NEGATIVE) 11/10/17 18:10 Acetaminophen < 10.0 ug/mL (10.0-30.0) L 11/10/17 16:37 Ur Barbiturates Screen NEGATIVE (NEGATIVE) 11/10/17 18:10 Valproic Acid 56.3 ug/mL (50.0-100.0) 11/23/17 08:25 Ur Tricyclics Screen NEGATIVE (NEGATIVE) 11/10/17 18:10 Ur Phencyclidine Scrn NEGATIVE (NEGATIVE) 11/10/17 18:10 Amphetamines Screen NEGATIVE (NEGATIVE) 11/10/17 18:10 U Methamphetamines Scrn NEGATIVE (NEGATIVE) 11/10/17 18:10 U Benzodiazepines Scrn NEGATIVE (NEGATIVE) 11/10/17 18:10 U Cocaine Metab Screen NEGATIVE (NEGATIVE) 11/10/17 18:10 U Cannabinoids Screen NEGATIVE (NEGATIVE) 11/10/17 18:10 Ethyl Alcohol < 10 mg/dL (0-10) 11/10/17 16:37 RPR NONREACTIVE (NONREACTIVE) 11/10/17 16:37 - Physical Exam Vitals and I&O: Vital Signs Temp 98.3 F 11/23/17 16:02 Pulse 110 11/23/17 20:36 Resp 18 11/23/17 19:30 BP 120/74 11/23/17 20:36 Pulse Ox 98 11/23/17 19:30 Intake & Output 11/23/17 11/23/17 11/24/17 06:59 18:59 06:59 Intake Total 2220 Balance 2220 Intake: Oral 2220 Other: # Voids 4 # Bowel Movements 1 Stool Characteristics Soft Formed Active Medications: Current Medications Acetaminophen (Tylenol) 650 mg PO Q4HR PRN PRN Reason: Mild Pain / Temp above 100 Stop: 01/10/18 00:16 Al Hydrox/Mg Hydrox/Simethicone (Maalox) 30 ml PO Q4HR PRN PRN Reason: GI DISTRESS Stop: 01/10/18 00:16 Albuterol/Ipratropium (Duoneb Neb) 3 ml HHN Q8HRT PRN PRN Reason: Shortness of Breath Stop: 01/10/18 00:16 Clozapine (Clozaril) 200 mg PO DAILY [facility] Stop: 01/11/18 05:58 Last Admin: 11/23/17 09:56 Dose: 200 mg Clozapine (Clozaril) 100 mg PO HS JOEL PRN Reason: Protocol Stop: 01/17/18 06:57 Last Admin: 11/23/17 20:32 Dose: 100 mg Divalproex Sodium (Depakote Dr) 250 mg PO Q8HR JOEL PRN Reason: Protocol Stop: 01/10/18 04:59 Last Admin: 11/23/17 20:33 Dose: 250 mg Docusate Sodium (Colace) 100 mg PO BID JOEL Stop: 01/10/18 08:59 Last Admin: 11/23/17 17:54 Dose: Not Given Insulin Aspart (Novolog Insulin Sliding Scale) 0 units SUBQ 0630 JOEL PRN Reason: Protocol Stop: 01/10/18 06:29 Last Admin: 11/23/17 06:41 Dose: Not Given Lorazepam (Ativan) 0.5 mg PO Q6H PRN; Protocol PRN Reason: Agitation Stop: 01/14/18 11:12 Last Admin: 11/23/17 20:38 Dose: 0.5 mg Metoprolol Tartrate (Lopressor) 25 mg PO HS JOEL Stop: 01/10/18 20:59 Last Admin: 11/23/17 20:36 Dose: 25 mg Mirtazapine (Remeron) 30 mg PO HS JOEL PRN Reason: Protocol Stop: 01/20/18 20:59 Last Admin: 11/23/17 20:33 Dose: 30 mg Multivitamins/Vitamin C (Theragran) 1 tab PO DAILY JOEL Stop: 01/10/18 08:59 Last Admin: 11/23/17 09:56 Dose: 1 tab Ondansetron HCl (Zofran Odt) 4 mg PO Q4H PRN PRN Reason: Nausea / Vomiting Stop: 01/10/18 00:16 Pantoprazole Sodium (Protonix) 40 mg PO QDAC JOEL Stop: 01/10/18 07:29 Last Admin: 11/23/17 06:41 Dose: 40 mg Simvastatin (Zocor) 20 mg PO HS JOEL PRN Reason: Protocol Stop: 01/10/18 20:59 Last Admin: 11/23/17 20:33 Dose: 20 mg Tramadol HCl (Ultram) 50 mg PO Q8HR PRN PRN Reason: Pain (Moderate) Stop: 01/10/18 00:16 Zolpidem Tartrate (Ambien) 5 mg PO HS PRN PRN Reason: Insomnia Stop: 01/10/18 01:02 Last Admin: 11/23/17 20:34 Dose: 5 mg General: demented HEENT: NC/AT, PERRLA, EOMI, anicteric sclerae, throat clear Neck: Supple, No JVD, No thyromegaly, No LAD Lungs: CTAB Abdomen: non-tender, non-distended Extremities: clear Neurological: no change - Procedures Procedures: Procedures Procedure Code Date GROUP PSYCHOTHERAPY 20248 07/16/15 GROUP PSYCHOTHERAPY GZHZZZZ 07/16/15 INDIVID PSYCHOTHERAP NEC 94.39 09/06/13 OTHER GROUP THERAPY 94.44 05/03/14 RECREATIONAL THERAPY 93.81 08/25/12 Internal Medicine Assmt/Plan - Assessment Assessment: 1.DM. 2.HTN. 3 HYPERLIPIDEMIA. 4.DEMENTIA. - Plan Plan: CONTINUE ON CURRENT MEDICATION AND DIET. Nutritional Asmnt/Malnutr-PDOC - Dietary Evaluation Malnutrition Findings (Please click <Entered> for more info): Nutritional Asmnt/Malnutrition Start: 11/15/17 14: 32 Text: Status: Complete Freq: Document 11/15/17 14:32 [email or web address] (Rec: 11/15/17 14:35 [email or web address]) Nutritional Asmnt/Malnutrition Patient General Information Nutritional Screening Moderate Risk Diagnosis psychosis NOS Pertinent Medical Hx/Surgical Hx DM, HTN, HLD, psychosis Subjective Information Pt confused and depressed. Eating 75-100% of meals. Current Diet Order/ Nutrition Support mechanical soft, chopped, CCHO , MAURA Patient / S.O Not Indicated Pertinent Medications insulin, remeron, MVI, protonix Pertinent Labs POC: 84-107, hgba1c: 6.0 Nutritional Hx/Data Height 1.57 m Height (Calculated Centimeters) 157.5 Current Weight (lbs) 68.039 kg Weight (Calculated Kilograms) 68.0 Weight (Calculated Grams) 87637.9 [place] Body Weight 118 lbs % [place] Body Weight 127 Body Mass Index (BMI) 27.4 Weight Status Overweight GI Symptoms GI Symptoms None Last BM 11/13 Difficult in: None Skin Integrity/Comment: intact Current %PO Good (75-100%) Estimated Nutritional Goals BEE in Kcals: Adj wt of IBW Calories/Kcals/Kg 25-30 Kcals Calculated 7378-9947 kcals Protein: Adj wt of IBW Protein g/k-1.2 Protein Calculated 68-82 g Fluid: ml 9562-6695 mL (1 ml/kcal) Nutritional Problem 1. Problem Problem n/a Etiology none Signs/Symptoms: none Intervention/Recommendation Comments 1. Continue mechanical soft, chopped, CCHO, MAURA diet as ordered Expected Outcomes/Goals Expected Outcomes/Goals Goal: PO intake >50% montior wts, labs, skin, PO intake
--- NOTE | 2017-11-23 23:13 | Progress Notes ---
DATE: 11/23/2017 Case was discussed with staff of the patient, reviewed records. The patient is reported to be mumbling to himself. Continues to have poor insight, internally preoccupied, and depressed. Continues to be unable to make safe plan for self-care. He is compliant with the medication with no side effects, no sedation, no nausea, and no extrapyramidal symptoms. I did increase his Remeron dose to 50 mg at bedtime and his lab work was discussed yesterday, but I will be ordering Depakote level on him to make sure he is compliant with the medication and see if this could be adjusted. I will continue to work with the patient in group therapy, milieu therapy, and adjust medication as needed. JOB# [id number]
[2017-11-24] MEDS: INSULIN ASPART SLIDING SCALE 100 UNITS/ML UNIT SUBQ SCH (06:55)
[2017-11-24] MEDS: Pantoprazole 40 mg EC Tab PO SCH (06:55)
[2017-11-24] MEDS: Multivitamin Tab PO SCH (09:25)
--- NOTE | 2017-11-24 15:55 | Internal Medicine Prog Note ---
Internal Medicine Subjective - Subjective Service Date: 11/24/17 Patient seen and examined:: with staff Patient is:: awake, verbal, in bed, denies any new complaints Per staff patient has:: no adverse event (HE FEELS WELL) Internal Medicine Objective - Results Result Diagrams: 11/18/17 06:20 11/10/17 16:37 Recent Labs: Laboratory Last Values WBC 5.7 Th/cmm (4.8-10.8) 11/18/17 06:20 RBC 4.86 Mil/cmm (3.80-5.80) 11/18/17 06:20 Hgb 13.4 gm/dL (12-16) 11/18/17 06:20 Hct 40.7 % (41.0-60) L 11/18/17 06:20 MCV 83.7 fl (80-99) 11/18/17 06:20 MCH 27.7 pg (27.0-31.0) 11/18/17 06:20 MCHC Differential 33.0 pg (28.0-36.0) 11/18/17 06:20 RDW 15.5 % (11.5-20.0) 11/18/17 06:20 Plt Count 266 Th/cmm (150-400) 11/18/17 06:20 MPV 8.2 fl 11/18/17 06:20 Neutrophils % 52.1 % (40.0-80.0) 11/18/17 06:20 Lymphocytes % 31.5 % (20.0-50.0) 11/18/17 06:20 Monocytes % 9.4 % (2.0-10.0) 11/18/17 06:20 Eosinophils % 6.2 % (0.0-5.0) H 11/18/17 06:20 Basophils % 0.8 % (0.0-2.0) 11/18/17 06:20 Sodium 136 mEq/L (136-145) 11/10/17 16:37 Potassium 4.4 mEq/L (3.5-5.1) 11/10/17 16:37 Chloride 102 mEq/L (98-107) 11/10/17 16:37 Carbon Dioxide 27.6 mEq/L (21.0-31.0) 11/10/17 16:37 Anion Gap 10.8 (7.0-16.0) 11/10/17 16:37 BUN 18 mg/dL (7-25) 11/10/17 16:37 Creatinine 1.0 mg/dL (0.7-1.3) 11/10/17 16:37 Est GFR ( Amer) > 60.0 ml/min (>90) 11/10/17 16:37 Est GFR (Non-Af Amer) > 60.0 ml/min 11/10/17 16:37 BUN/Creatinine Ratio 18.0 11/10/17 16:37 Glucose 115 mg/dL (70-105) H 11/10/17 16:37 POC Glucose 78 MG/DL (70 - 105) 11/22/17 16:08 Hemoglobin A1c % 6.0 % (4.0-6.0) 11/10/17 16:37 Calcium 9.5 mg/dL (8.6-10.3) 11/10/17 16:37 Total Bilirubin 0.3 mg/dL (0.3-1.0) 11/10/17 16:37 AST 18 U/L (13-39) 11/10/17 16:37 ALT 11 U/L (7-52) 11/10/17 16:37 Alkaline Phosphatase 62 U/L (34-104) 11/10/17 16:37 Total Protein 6.7 gm/dL (6.0-8.3) 11/10/17 16:37 Albumin 4.2 gm/dL (4.2-5.5) 11/10/17 16:37 Globulin 2.5 gm/dL 11/10/17 16:37 Albumin/Globulin Ratio 1.7 (1.0-1.8) 11/10/17 16:37 Triglycerides 108 mg/dL (<150) 11/10/17 16:37 Cholesterol 157 mg/dL (<200) 11/10/17 16:37 LDL Cholesterol Direct 85 mg/dL (75-193) 11/10/17 16:37 HDL Cholesterol 58 mg/dL (23-92) 11/10/17 16:37 TSH 2.23 uIU/ml (0.34-5.60) 11/10/17 16:37 Urine Source CLEAN C 11/10/17 18:10 Urine Color YELLOW 11/10/17 18:10 Urine Clarity CLEAR (CLEAR) 11/10/17 18:10 Urine pH 7.5 (4.6 - 8.0) 11/10/17 18:10 Ur Specific [place] 1.015 (1.005-1.030) 11/10/17 18:10 Urine Protein NEGATIVE mg/dL (NEGATIVE) 11/10/17 18:10 Urine Glucose (UA) NEGATIVE mg/dL (NEGATIVE) 11/10/17 18:10 Urine Ketones NEGATIVE mg/dL (NEGATIVE) 11/10/17 18:10 Urine Blood NEGATIVE (NEGATIVE) 11/10/17 18:10 Urine Nitrate NEGATIVE (NEGATIVE) 11/10/17 18:10 Urine Bilirubin NEGATIVE (NEGATIVE) 11/10/17 18:10 Urine Urobilinogen 0.2 E.U./dL (0.2 - 1.0) 11/10/17 18:10 Ur Leukocyte Esterase NEGATIVE (NEGATIVE) 11/10/17 18:10 Urine RBC NONE SEEN /hpf (0-5) 11/10/17 18:10 Urine WBC NONE SEEN /hpf (0-5) 11/10/17 18:10 Ur Epithelial Cells NONE SEEN /lpf (FEW) 11/10/17 18:10 Urine Bacteria NONE SEEN /hpf (NONE SEEN) 11/10/17 18:10 Salicylates < 25.0 mg/L (30.0-100.0) L 11/10/17 16:37 Urine Opiates Screen NEGATIVE (NEGATIVE) 11/10/17 18:10 Urine Methadone Screen NEGATIVE (NEGATIVE) 11/10/17 18:10 Acetaminophen < 10.0 ug/mL (10.0-30.0) L 11/10/17 16:37 Ur Barbiturates Screen NEGATIVE (NEGATIVE) 11/10/17 18:10 Valproic Acid 56.3 ug/mL (50.0-100.0) 11/23/17 08:25 Ur Tricyclics Screen NEGATIVE (NEGATIVE) 11/10/17 18:10 Ur Phencyclidine Scrn NEGATIVE (NEGATIVE) 11/10/17 18:10 Amphetamines Screen NEGATIVE (NEGATIVE) 11/10/17 18:10 U Methamphetamines Scrn NEGATIVE (NEGATIVE) 11/10/17 18:10 U Benzodiazepines Scrn NEGATIVE (NEGATIVE) 11/10/17 18:10 U Cocaine Metab Screen NEGATIVE (NEGATIVE) 11/10/17 18:10 U Cannabinoids Screen NEGATIVE (NEGATIVE) 11/10/17 18:10 Ethyl Alcohol < 10 mg/dL (0-10) 11/10/17 16:37 RPR NONREACTIVE (NONREACTIVE) 11/10/17 16:37 - Physical Exam Vitals and I&O: Vital Signs Temp 97.2 F 11/24/17 06:41 Pulse 112 11/24/17 08:06 Resp 18 11/24/17 08:06 BP 112/71 11/24/17 06:41 Pulse Ox 97 11/24/17 08:06 Intake & Output 11/23/17 11/24/17 11/24/17 18:59 06:59 18:59 Intake Total 2220 120 Balance 2220 120 Intake: Oral 2220 120 Other: # Voids 4 3 # Bowel Movements 1 Stool Characteristics Soft Formed Active Medications: Current Medications Acetaminophen (Tylenol) 650 mg PO Q4HR PRN PRN Reason: Mild Pain / Temp above 100 Stop: 01/10/18 00:16 Al Hydrox/Mg Hydrox/Simethicone (Maalox) 30 ml PO Q4HR PRN PRN Reason: GI DISTRESS Stop: 01/10/18 00:16 Albuterol/Ipratropium (Duoneb Neb) 3 ml HHN Q8HRT PRN PRN Reason: Shortness of Breath Stop: 01/10/18 00:16 Bupropion HCl (Wellbutrin Xl) 150 mg PO DAILY JOEL PRN Reason: Protocol Stop: 01/24/18 08:59 Clozapine (Clozaril) 200 mg PO DAILY JOEL Stop: 01/11/18 05:58 Last Admin: 11/24/17 09:24 Dose: 200 mg Clozapine (Clozaril) 100 mg PO HS OJEL PRN Reason: Protocol Stop: 01/17/18 06:57 Last Admin: 11/23/17 20:32 Dose: 100 mg Divalproex Sodium (Depakote Dr) 250 mg PO Q8HR JOEL PRN Reason: Protocol Stop: 01/10/18 04:59 Last Admin: 11/24/17 13:26 Dose: 250 mg Docusate Sodium (Colace) 100 mg PO BID JOEL Stop: 01/10/18 08:59 Last Admin: 11/24/17 09:25 Dose: 100 mg Insulin Aspart (Novolog Insulin Sliding Scale) 0 units SUBQ 0630 JOEL PRN Reason: Protocol Stop: 01/10/18 06:29 Last Admin: 11/24/17 06:55 Dose: Not Given Lorazepam (Ativan) 0.5 mg PO Q6H PRN; Protocol PRN Reason: Agitation Stop: 01/14/18 11:12 Last Admin: 11/23/17 20:38 Dose: 0.5 mg Metoprolol Tartrate (Lopressor) 25 mg PO HS JOEL Stop: 01/10/18 20:59 Last Admin: 11/23/17 20:36 Dose: 25 mg Mirtazapine (Remeron) 30 mg PO HS JOEL PRN Reason: Protocol Stop: 01/20/18 20:59 Last Admin: 11/23/17 20:33 Dose: 30 mg Multivitamins/Vitamin C (Theragran) 1 tab PO DAILY [facility] Stop: 01/10/18 08:59 Last Admin: 11/24/17 09:25 Dose: 1 tab Ondansetron HCl (Zofran Odt) 4 mg PO Q4H PRN PRN Reason: Nausea / Vomiting Stop: 01/10/18 00:16 Pantoprazole Sodium (Protonix) 40 mg PO QDAC JOEL Stop: 01/10/18 07:29 Last Admin: 11/24/17 06:55 Dose: 40 mg Simvastatin (Zocor) 20 mg PO HS [facility] PRN Reason: Protocol Stop: 01/10/18 20:59 Last Admin: 11/23/17 20:33 Dose: 20 mg Tramadol HCl (Ultram) 50 mg PO Q8HR PRN PRN Reason: Pain (Moderate) Stop: 01/10/18 00:16 Zolpidem Tartrate (Ambien) 5 mg PO HS PRN PRN Reason: Insomnia Stop: 01/10/18 01:02 Last Admin: 11/23/17 20:34 Dose: 5 mg General: demented HEENT: NC/AT, PERRLA, EOMI, anicteric sclerae, throat clear Neck: Supple, No JVD, No thyromegaly, No LAD Lungs: CTAB Abdomen: non-tender, non-distended Extremities: clear Neurological: no change - Procedures Procedures: Procedures Procedure Code Date GROUP PSYCHOTHERAPY 95432 07/16/15 GROUP PSYCHOTHERAPY GZHZZZZ 07/16/15 INDIVID PSYCHOTHERAP NEC 94.39 09/06/13 OTHER GROUP THERAPY 94.44 05/03/14 RECREATIONAL THERAPY 93.81 08/25/12 Internal Medicine Assmt/Plan - Assessment Assessment: 1.DM. 2.HTN. 3 HYPERLIPIDEMIA. 4.DEMENTIA. - Plan Plan: CONTINUE ON CURRENT MEDICATION AND DIET. Nutritional Asmnt/Malnutr-PDOC - Dietary Evaluation Malnutrition Findings (Please click <Entered> for more info): Nutritional Asmnt/Malnutrition Start: 11/15/17 14: 32 Text: Status: Complete Freq: Document 11/15/17 14:32 [email or web address] (Rec: 11/15/17 14:35 [email or web address]) Nutritional Asmnt/Malnutrition Patient General Information Nutritional Screening Moderate Risk Diagnosis psychosis NOS Pertinent Medical Hx/Surgical Hx DM, HTN, HLD, psychosis Subjective Information Pt confused and depressed. Eating 75-100% of meals. Current Diet Order/ Nutrition Support mechanical soft, chopped, CCHO , MAURA Patient / S.O Not Indicated Pertinent Medications insulin, remeron, MVI, protonix Pertinent Labs POC: 84-107, hgba1c: 6.0 Nutritional Hx/Data Height 1.57 m Height (Calculated Centimeters) 157.5 Current Weight (lbs) 68.039 kg Weight (Calculated Kilograms) 68.0 Weight (Calculated Grams) 22775.9 [place] Body Weight 118 lbs % [place] Body Weight 127 Body Mass Index (BMI) 27.4 Weight Status Overweight GI Symptoms GI Symptoms None Last BM 11/13 Difficult in: None Skin Integrity/Comment: intact Current %PO Good (75-100%) Estimated Nutritional Goals BEE in Kcals: Adj wt of IBW Calories/Kcals/Kg 25-30 Kcals Calculated 0146-7476 kcals Protein: Adj wt of IBW Protein g/k-1.2 Protein Calculated 68-82 g Fluid: ml 0879-2762 mL (1 ml/kcal) Nutritional Problem 1. Problem Problem n/a Etiology none Signs/Symptoms: none Intervention/Recommendation Comments 1. Continue mechanical soft, chopped, CCHO, MAURA diet as ordered Expected Outcomes/Goals Expected Outcomes/Goals Goal: PO intake >50% montior wts, labs, skin, PO intake
--- NOTE | 2017-11-24 22:45 | Progress Notes ---
DATE: 11/24/2017 SUBJECTIVE: Case was discussed with staff of the patient and reviewed records. The patient continues to be psychotic, internally preoccupied. He is on Clozaril 100 mg at bedtime and he is still isolating himself unpredictable, impulsive. Also reported to be very depressed with no energy, no motivation. I will be adding Wellbutrin to his medication to help give him more energy and motivation and he is still very severely depressed with very poor energy, stay to himself. We will continue outpatient group therapy, milieu therapy, adjust medication as needed. JOB# [id number]
[2017-11-25] MEDS: INSULIN ASPART SLIDING SCALE 100 UNITS/ML UNIT SUBQ SCH (06:41)
[2017-11-25] MEDS: Pantoprazole 40 mg EC Tab PO SCH (06:41)
[2017-11-25] MEDS: buPROPion XL 150 mg T 24 H PO SCH (08:49)
[2017-11-25] MEDS: Multivitamin Tab PO SCH (08:49)
[2017-11-25 10:20] LABS: % BASOPHILS 0.2 % (0.0-2.0); % EOSINOPHILS 2.9 % (0.0-5.0); % LYMPHOCYTES 22.4 % (20.0-50.0); % MONOCYTES 7.8 % (2.0-10.0); % NEUTROPHILS 66.7 % (40.0-80.0); EOSINOPHILE ABSOLUTE 0.2 Th/cmm (0.1-0.4); HEMATOCRIT 43.3 % (41.0-60); HEMOGLOBIN 14.2 gm/dL (12-16); LYMPHOCYTE ABSOLUTE 1.5 Th/cmm (1.5-3.0); MEAN CORPUSCULAR HEMOGLOBIN 27.5 pg (27.0-31.0); MEAN CORPUSCULAR HGB CONC 32.7 pg (28.0-36.0); MEAN PLATELET VOLUME 8.5 fl; MONOCYTE ABSOLUTE 0.5 Th/cmm (0.3-1.0); NEUTROPHILE ABSOLUTE 4.5 Th/cmm (1.8-8.0); PLATELET COUNT 256 Th/cmm (150-400); RED BLOOD COUNT 5.15 Mil/cmm (3.80-5.80); RED CELL DISTRIBUTION WIDTH 15.9 % (11.5-20.0); WHITE BLOOD COUNT 6.7 Th/cmm (4.8-10.8)
--- NOTE | 2017-11-25 21:18 | Internal Medicine Prog Note ---
Internal Medicine Subjective - Subjective Service Date: 11/25/17 Patient seen and examined:: with staff Patient is:: awake, verbal, in bed, denies any new complaints Per staff patient has:: no adverse event (HE FEELS WELL) Internal Medicine Objective - Results Result Diagrams: 11/25/17 10:00 11/10/17 16:37 Recent Labs: Laboratory Last Values WBC 6.7 Th/cmm (4.8-10.8) 11/25/17 10:00 RBC 5.15 Mil/cmm (3.80-5.80) 11/25/17 10:00 Hgb 14.2 gm/dL (12-16) 11/25/17 10:00 Hct 43.3 % (41.0-60) 11/25/17 10:00 MCV 84.0 fl (80-99) 11/25/17 10:00 MCH 27.5 pg (27.0-31.0) 11/25/17 10:00 MCHC Differential 32.7 pg (28.0-36.0) 11/25/17 10:00 RDW 15.9 % (11.5-20.0) 11/25/17 10:00 Plt Count 256 Th/cmm (150-400) 11/25/17 10:00 MPV 8.5 fl 11/25/17 10:00 Neutrophils % 66.7 % (40.0-80.0) 11/25/17 10:00 Lymphocytes % 22.4 % (20.0-50.0) 11/25/17 10:00 Monocytes % 7.8 % (2.0-10.0) 11/25/17 10:00 Eosinophils % 2.9 % (0.0-5.0) 11/25/17 10:00 Basophils % 0.2 % (0.0-2.0) 11/25/17 10:00 Sodium 136 mEq/L (136-145) 11/10/17 16:37 Potassium 4.4 mEq/L (3.5-5.1) 11/10/17 16:37 Chloride 102 mEq/L (98-107) 11/10/17 16:37 Carbon Dioxide 27.6 mEq/L (21.0-31.0) 11/10/17 16:37 Anion Gap 10.8 (7.0-16.0) 11/10/17 16:37 BUN 18 mg/dL (7-25) 11/10/17 16:37 Creatinine 1.0 mg/dL (0.7-1.3) 11/10/17 16:37 Est GFR ( Amer) > 60.0 ml/min (>90) 11/10/17 16:37 Est GFR (Non-Af Amer) > 60.0 ml/min 11/10/17 16:37 BUN/Creatinine Ratio 18.0 11/10/17 16:37 Glucose 115 mg/dL (70-105) H 11/10/17 16:37 POC Glucose 81 MG/DL (70 - 105) 11/25/17 06:33 Hemoglobin A1c % 6.0 % (4.0-6.0) 11/10/17 16:37 Calcium 9.5 mg/dL (8.6-10.3) 11/10/17 16:37 Total Bilirubin 0.3 mg/dL (0.3-1.0) 11/10/17 16:37 AST 18 U/L (13-39) 11/10/17 16:37 ALT 11 U/L (7-52) 11/10/17 16:37 Alkaline Phosphatase 62 U/L (34-104) 11/10/17 16:37 Total Protein 6.7 gm/dL (6.0-8.3) 11/10/17 16:37 Albumin 4.2 gm/dL (4.2-5.5) 11/10/17 16:37 Globulin 2.5 gm/dL 11/10/17 16:37 Albumin/Globulin Ratio 1.7 (1.0-1.8) 11/10/17 16:37 Triglycerides 108 mg/dL (<150) 11/10/17 16:37 Cholesterol 157 mg/dL (<200) 11/10/17 16:37 LDL Cholesterol Direct 85 mg/dL (75-193) 11/10/17 16:37 HDL Cholesterol 58 mg/dL (23-92) 11/10/17 16:37 TSH 2.23 uIU/ml (0.34-5.60) 11/10/17 16:37 Urine Source CLEAN C 11/10/17 18:10 Urine Color YELLOW 11/10/17 18:10 Urine Clarity CLEAR (CLEAR) 11/10/17 18:10 Urine pH 7.5 (4.6 - 8.0) 11/10/17 18:10 Ur Specific [place] 1.015 (1.005-1.030) 11/10/17 18:10 Urine Protein NEGATIVE mg/dL (NEGATIVE) 11/10/17 18:10 Urine Glucose (UA) NEGATIVE mg/dL (NEGATIVE) 11/10/17 18:10 Urine Ketones NEGATIVE mg/dL (NEGATIVE) 11/10/17 18:10 Urine Blood NEGATIVE (NEGATIVE) 11/10/17 18:10 Urine Nitrate NEGATIVE (NEGATIVE) 11/10/17 18:10 Urine Bilirubin NEGATIVE (NEGATIVE) 11/10/17 18:10 Urine Urobilinogen 0.2 E.U./dL (0.2 - 1.0) 11/10/17 18:10 Ur Leukocyte Esterase NEGATIVE (NEGATIVE) 11/10/17 18:10 Urine RBC NONE SEEN /hpf (0-5) 11/10/17 18:10 Urine WBC NONE SEEN /hpf (0-5) 11/10/17 18:10 Ur Epithelial Cells NONE SEEN /lpf (FEW) 11/10/17 18:10 Urine Bacteria NONE SEEN /hpf (NONE SEEN) 11/10/17 18:10 Salicylates < 25.0 mg/L (30.0-100.0) L 11/10/17 16:37 Urine Opiates Screen NEGATIVE (NEGATIVE) 11/10/17 18:10 Urine Methadone Screen NEGATIVE (NEGATIVE) 11/10/17 18:10 Acetaminophen < 10.0 ug/mL (10.0-30.0) L 11/10/17 16:37 Ur Barbiturates Screen NEGATIVE (NEGATIVE) 11/10/17 18:10 Valproic Acid 56.3 ug/mL (50.0-100.0) 11/23/17 08:25 Ur Tricyclics Screen NEGATIVE (NEGATIVE) 11/10/17 18:10 Ur Phencyclidine Scrn NEGATIVE (NEGATIVE) 11/10/17 18:10 Amphetamines Screen NEGATIVE (NEGATIVE) 11/10/17 18:10 U Methamphetamines Scrn NEGATIVE (NEGATIVE) 11/10/17 18:10 U Benzodiazepines Scrn NEGATIVE (NEGATIVE) 11/10/17 18:10 U Cocaine Metab Screen NEGATIVE (NEGATIVE) 11/10/17 18:10 U Cannabinoids Screen NEGATIVE (NEGATIVE) 11/10/17 18:10 Ethyl Alcohol < 10 mg/dL (0-10) 11/10/17 16:37 RPR NONREACTIVE (NONREACTIVE) 11/10/17 16:37 - Physical Exam Vitals and I&O: Vital Signs Temp 97.5 F 11/25/17 16:33 Pulse 119 11/25/17 20:41 Resp 20 11/25/17 16:33 BP 116/87 11/25/17 20:41 Pulse Ox 97 11/25/17 16:33 Intake & Output 11/25/17 11/25/17 11/26/17 06:59 18:59 06:59 Intake Total 490 Balance 490 Intake: Oral 490 Other: # Voids 2 # Bowel Movements 0 Active Medications: Current Medications Acetaminophen (Tylenol) 650 mg PO Q4HR PRN PRN Reason: Mild Pain / Temp above 100 Stop: 01/10/18 00:16 Al Hydrox/Mg Hydrox/Simethicone (Maalox) 30 ml PO Q4HR PRN PRN Reason: GI DISTRESS Stop: 01/10/18 00:16 Albuterol/Ipratropium (Duoneb Neb) 3 ml HHN Q8HRT PRN PRN Reason: Shortness of Breath Stop: 01/10/18 00:16 Bupropion HCl (Wellbutrin Xl) 150 mg PO DAILY JOEL PRN Reason: Protocol Stop: 01/24/18 08:59 Last Admin: 11/25/17 08:49 Dose: 150 mg Clozapine (Clozaril) 200 mg PO DAILY JOEL Stop: 01/11/18 05:58 Last Admin: 11/25/17 08:49 Dose: 200 mg Clozapine (Clozaril) 100 mg PO HS [facility]OL PRN Reason: Protocol Stop: 01/17/18 06:57 Last Admin: 11/25/17 20:39 Dose: 100 mg Divalproex Sodium (Depakote Dr) 250 mg PO Q8HR JOEL PRN Reason: Protocol Stop: 01/10/18 04:59 Last Admin: 11/25/17 20:39 Dose: 250 mg Docusate Sodium (Colace) 100 mg PO BID JOEL Stop: 01/10/18 08:59 Last Admin: 11/25/17 16:30 Dose: 100 mg Insulin Aspart (Novolog Insulin Sliding Scale) 0 units SUBQ 0630 JOEL PRN Reason: Protocol Stop: 01/10/18 06:29 Last Admin: 11/25/17 06:41 Dose: Not Given Lorazepam (Ativan) 0.5 mg PO Q6H PRN; Protocol PRN Reason: Agitation Stop: 01/14/18 11:12 Last Admin: 11/23/17 20:38 Dose: 0.5 mg Metoprolol Tartrate (Lopressor) 25 mg PO HS JOEL Stop: 01/10/18 20:59 Last Admin: 11/25/17 20:41 Dose: 25 mg Mirtazapine (Remeron) 30 mg PO HS JOEL PRN Reason: Protocol Stop: 01/20/18 20:59 Last Admin: 11/25/17 20:40 Dose: 30 mg Multivitamins/Vitamin C (Theragran) 1 tab PO DAILY JOEL Stop: 01/10/18 08:59 Last Admin: 11/25/17 08:49 Dose: 1 tab Ondansetron HCl (Zofran Odt) 4 mg PO Q4H PRN PRN Reason: Nausea / Vomiting Stop: 01/10/18 00:16 Pantoprazole Sodium (Protonix) 40 mg PO QDAC JOEL Stop: 01/10/18 07:29 Last Admin: 11/25/17 06:41 Dose: 40 mg Simvastatin (Zocor) 20 mg PO HS [facility] PRN Reason: Protocol Stop: 01/10/18 20:59 Last Admin: 11/25/17 20:40 Dose: 20 mg General: demented HEENT: NC/AT, PERRLA, EOMI, anicteric sclerae, throat clear Neck: Supple, No JVD, No thyromegaly, No LAD Lungs: CTAB Abdomen: non-tender, non-distended Extremities: clear Neurological: no change - Procedures Procedures: Procedures Procedure Code Date GROUP PSYCHOTHERAPY 00403 07/16/15 GROUP PSYCHOTHERAPY GZHZZZZ 07/16/15 INDIVID PSYCHOTHERAP NEC 94.39 09/06/13 OTHER GROUP THERAPY 94.44 05/03/14 RECREATIONAL THERAPY 93.81 08/25/12 Internal Medicine Assmt/Plan - Assessment Assessment: 1.DM. 2.HTN. 3 HYPERLIPIDEMIA. 4.DEMENTIA. - Plan Plan: CONTINUE ON CURRENT MEDICATION AND DIET. Nutritional Asmnt/Malnutr-PDOC - Dietary Evaluation Malnutrition Findings (Please click <Entered> for more info): Nutritional Asmnt/Malnutrition Start: 11/15/17 14: 32 Text: Status: Complete Freq: Document 11/15/17 14:32 [email or web address] (Rec: 11/15/17 14:35 [id number]) Nutritional Asmnt/Malnutrition Patient General Information Nutritional Screening Moderate Risk Diagnosis psychosis NOS Pertinent Medical Hx/Surgical Hx DM, HTN, HLD, psychosis Subjective Information Pt confused and depressed. Eating 75-100% of meals. Current Diet Order/ Nutrition Support mechanical soft, chopped, CCHO , MAURA Patient / S.O Not Indicated Pertinent Medications insulin, remeron, MVI, protonix Pertinent Labs POC: 84-107, hgba1c: 6.0 Nutritional Hx/Data Height 1.57 m Height (Calculated Centimeters) 157.5 Current Weight (lbs) 68.039 kg Weight (Calculated Kilograms) 68.0 Weight (Calculated Grams) 60064.9 [place] Body Weight 118 lbs % [place] Body Weight 127 Body Mass Index (BMI) 27.4 Weight Status Overweight GI Symptoms GI Symptoms None Last BM 11/13 Difficult in: None Skin Integrity/Comment: intact Current %PO Good (75-100%) Estimated Nutritional Goals BEE in Kcals: Adj wt of IBW Calories/Kcals/Kg 25-30 Kcals Calculated 0293-7464 kcals Protein: Adj wt of IBW Protein g/k-1.2 Protein Calculated 68-82 g Fluid: ml 6070-8883 mL (1 ml/kcal) Nutritional Problem 1. Problem Problem n/a Etiology none Signs/Symptoms: none Intervention/Recommendation Comments 1. Continue mechanical soft, chopped, CCHO, MAURA diet as ordered Expected Outcomes/Goals Expected Outcomes/Goals Goal: PO intake >50% montior wts, labs, skin, PO intake
--- NOTE | 2017-11-25 23:33 | Progress Notes ---
DATE: 11/25/2017 SUBJECTIVE: Case was discussed with staff of the patient, reviewed records. The patient continues to be unpredictable, impulsive, needing redirection. Continues to be internally preoccupied, isolating himself. Continues to look very depressed. I did add Wellbutrin yesterday and it is too early to make judgment how it is helping him and he is on the Seroquel, a total of 300 mg a day with no side effects, no sedation, no nausea, no extrapyramidal symptoms. His Depakote level is 66.3, which is within acceptable therapeutic range and no complaint of constipation by the patient. PLAN: We will continue to work with the patient in group therapy, milieu therapy, and adjust medications as needed. JOB# [id number]
[2017-11-26] MEDS: INSULIN ASPART SLIDING SCALE 100 UNITS/ML UNIT SUBQ SCH (06:12)
[2017-11-26] MEDS: Pantoprazole 40 mg EC Tab PO SCH (06:43)
[2017-11-26] MEDS: Multivitamin Tab PO SCH (09:11)
[2017-11-26] MEDS: buPROPion XL 150 mg T 24 H PO SCH (09:11)
--- NOTE | 2017-11-26 19:41 | Internal Medicine Prog Note ---
Internal Medicine Subjective - Subjective Service Date: 11/26/17 Patient seen and examined:: with staff Patient is:: awake, verbal, in bed, denies any new complaints Per staff patient has:: no adverse event (HE FEELS WELL) Internal Medicine Objective - Results Result Diagrams: 11/25/17 10:00 11/10/17 16:37 Recent Labs: Laboratory Last Values WBC 6.7 Th/cmm (4.8-10.8) 11/25/17 10:00 RBC 5.15 Mil/cmm (3.80-5.80) 11/25/17 10:00 Hgb 14.2 gm/dL (12-16) 11/25/17 10:00 Hct 43.3 % (41.0-60) 11/25/17 10:00 MCV 84.0 fl (80-99) 11/25/17 10:00 MCH 27.5 pg (27.0-31.0) 11/25/17 10:00 MCHC Differential 32.7 pg (28.0-36.0) 11/25/17 10:00 RDW 15.9 % (11.5-20.0) 11/25/17 10:00 Plt Count 256 Th/cmm (150-400) 11/25/17 10:00 MPV 8.5 fl 11/25/17 10:00 Neutrophils % 66.7 % (40.0-80.0) 11/25/17 10:00 Lymphocytes % 22.4 % (20.0-50.0) 11/25/17 10:00 Monocytes % 7.8 % (2.0-10.0) 11/25/17 10:00 Eosinophils % 2.9 % (0.0-5.0) 11/25/17 10:00 Basophils % 0.2 % (0.0-2.0) 11/25/17 10:00 Sodium 136 mEq/L (136-145) 11/10/17 16:37 Potassium 4.4 mEq/L (3.5-5.1) 11/10/17 16:37 Chloride 102 mEq/L (98-107) 11/10/17 16:37 Carbon Dioxide 27.6 mEq/L (21.0-31.0) 11/10/17 16:37 Anion Gap 10.8 (7.0-16.0) 11/10/17 16:37 BUN 18 mg/dL (7-25) 11/10/17 16:37 Creatinine 1.0 mg/dL (0.7-1.3) 11/10/17 16:37 Est GFR ( Amer) > 60.0 ml/min (>90) 11/10/17 16:37 Est GFR (Non-Af Amer) > 60.0 ml/min 11/10/17 16:37 BUN/Creatinine Ratio 18.0 11/10/17 16:37 Glucose 115 mg/dL (70-105) H 11/10/17 16:37 POC Glucose 90 MG/DL (70 - 105) 11/26/17 05:58 Hemoglobin A1c % 6.0 % (4.0-6.0) 11/10/17 16:37 Calcium 9.5 mg/dL (8.6-10.3) 11/10/17 16:37 Total Bilirubin 0.3 mg/dL (0.3-1.0) 11/10/17 16:37 AST 18 U/L (13-39) 11/10/17 16:37 ALT 11 U/L (7-52) 11/10/17 16:37 Alkaline Phosphatase 62 U/L (34-104) 11/10/17 16:37 Total Protein 6.7 gm/dL (6.0-8.3) 11/10/17 16:37 Albumin 4.2 gm/dL (4.2-5.5) 11/10/17 16:37 Globulin 2.5 gm/dL 11/10/17 16:37 Albumin/Globulin Ratio 1.7 (1.0-1.8) 11/10/17 16:37 Triglycerides 108 mg/dL (<150) 11/10/17 16:37 Cholesterol 157 mg/dL (<200) 11/10/17 16:37 LDL Cholesterol Direct 85 mg/dL (75-193) 11/10/17 16:37 HDL Cholesterol 58 mg/dL (23-92) 11/10/17 16:37 TSH 2.23 uIU/ml (0.34-5.60) 11/10/17 16:37 Urine Source CLEAN C 11/10/17 18:10 Urine Color YELLOW 11/10/17 18:10 Urine Clarity CLEAR (CLEAR) 11/10/17 18:10 Urine pH 7.5 (4.6 - 8.0) 11/10/17 18:10 Ur Specific [place] 1.015 (1.005-1.030) 11/10/17 18:10 Urine Protein NEGATIVE mg/dL (NEGATIVE) 11/10/17 18:10 Urine Glucose (UA) NEGATIVE mg/dL (NEGATIVE) 11/10/17 18:10 Urine Ketones NEGATIVE mg/dL (NEGATIVE) 11/10/17 18:10 Urine Blood NEGATIVE (NEGATIVE) 11/10/17 18:10 Urine Nitrate NEGATIVE (NEGATIVE) 11/10/17 18:10 Urine Bilirubin NEGATIVE (NEGATIVE) 11/10/17 18:10 Urine Urobilinogen 0.2 E.U./dL (0.2 - 1.0) 11/10/17 18:10 Ur Leukocyte Esterase NEGATIVE (NEGATIVE) 11/10/17 18:10 Urine RBC NONE SEEN /hpf (0-5) 11/10/17 18:10 Urine WBC NONE SEEN /hpf (0-5) 11/10/17 18:10 Ur Epithelial Cells NONE SEEN /lpf (FEW) 11/10/17 18:10 Urine Bacteria NONE SEEN /hpf (NONE SEEN) 11/10/17 18:10 Salicylates < 25.0 mg/L (30.0-100.0) L 11/10/17 16:37 Urine Opiates Screen NEGATIVE (NEGATIVE) 11/10/17 18:10 Urine Methadone Screen NEGATIVE (NEGATIVE) 11/10/17 18:10 Acetaminophen < 10.0 ug/mL (10.0-30.0) L 11/10/17 16:37 Ur Barbiturates Screen NEGATIVE (NEGATIVE) 11/10/17 18:10 Valproic Acid 56.3 ug/mL (50.0-100.0) 11/23/17 08:25 Ur Tricyclics Screen NEGATIVE (NEGATIVE) 11/10/17 18:10 Ur Phencyclidine Scrn NEGATIVE (NEGATIVE) 11/10/17 18:10 Amphetamines Screen NEGATIVE (NEGATIVE) 11/10/17 18:10 U Methamphetamines Scrn NEGATIVE (NEGATIVE) 11/10/17 18:10 U Benzodiazepines Scrn NEGATIVE (NEGATIVE) 11/10/17 18:10 U Cocaine Metab Screen NEGATIVE (NEGATIVE) 11/10/17 18:10 U Cannabinoids Screen NEGATIVE (NEGATIVE) 11/10/17 18:10 Ethyl Alcohol < 10 mg/dL (0-10) 11/10/17 16:37 RPR NONREACTIVE (NONREACTIVE) 11/10/17 16:37 - Physical Exam Vitals and I&O: Vital Signs Temp 97.8 F 11/26/17 16:33 Pulse 90 11/26/17 16:33 Resp 18 11/26/17 16:33 BP 125/61 11/26/17 16:33 Pulse Ox 97 11/26/17 16:33 Intake & Output 11/26/17 11/26/17 11/27/17 06:59 18:59 06:59 Intake Total 240 1800 Balance 240 1800 Intake: Oral 240 1800 Other: # Voids 2 4 # Bowel Movements 0 Active Medications: Current Medications Acetaminophen (Tylenol) 650 mg PO Q4HR PRN PRN Reason: Mild Pain / Temp above 100 Stop: 01/10/18 00:16 Al Hydrox/Mg Hydrox/Simethicone (Maalox) 30 ml PO Q4HR PRN PRN Reason: GI DISTRESS Stop: 01/10/18 00:16 Albuterol/Ipratropium (Duoneb Neb) 3 ml HHN Q8HRT PRN PRN Reason: Shortness of Breath Stop: 01/10/18 00:16 Bupropion HCl (Wellbutrin Xl) 150 mg PO DAILY JOEL PRN Reason: Protocol Stop: 01/24/18 08:59 Last Admin: 11/26/17 09:11 Dose: 150 mg Clozapine (Clozaril) 200 mg PO DAILY [facility] Stop: 01/11/18 05:58 Last Admin: 11/26/17 09:11 Dose: 200 mg Clozapine (Clozaril) 100 mg PO HS JOEL PRN Reason: Protocol Stop: 01/17/18 06:57 Last Admin: 11/25/17 20:39 Dose: 100 mg Divalproex Sodium (Depakote Dr) 250 mg PO Q8HR JOEL PRN Reason: Protocol Stop: 01/10/18 04:59 Last Admin: 11/26/17 13:18 Dose: 250 mg Docusate Sodium (Colace) 100 mg PO BID JOEL Stop: 01/10/18 08:59 Last Admin: 11/26/17 16:41 Dose: 100 mg Insulin Aspart (Novolog Insulin Sliding Scale) 0 units SUBQ 0630 JOEL PRN Reason: Protocol Stop: 01/10/18 06:29 Last Admin: 11/26/17 06:12 Dose: Not Given Lorazepam (Ativan) 0.5 mg PO Q6H PRN; Protocol PRN Reason: Agitation Stop: 01/14/18 11:12 Last Admin: 11/23/17 20:38 Dose: 0.5 mg Metoprolol Tartrate (Lopressor) 25 mg PO HS JOEL Stop: 01/10/18 20:59 Last Admin: 11/25/17 20:41 Dose: 25 mg Mirtazapine (Remeron) 30 mg PO HS [facility] PRN Reason: Protocol Stop: 01/20/18 20:59 Last Admin: 11/25/17 20:40 Dose: 30 mg Multivitamins/Vitamin C (Theragran) 1 tab PO DAILY [facility] Stop: 01/10/18 08:59 Last Admin: 11/26/17 09:11 Dose: 1 tab Ondansetron HCl (Zofran Odt) 4 mg PO Q4H PRN PRN Reason: Nausea / Vomiting Stop: 01/10/18 00:16 Pantoprazole Sodium (Protonix) 40 mg PO QDAC JOEL Stop: 01/10/18 07:29 Last Admin: 11/26/17 06:43 Dose: 40 mg Simvastatin (Zocor) 20 mg PO HS [facility] PRN Reason: Protocol Stop: 01/10/18 20:59 Last Admin: 11/25/17 20:40 Dose: 20 mg General: demented HEENT: NC/AT, PERRLA, EOMI, anicteric sclerae, throat clear Neck: Supple, No JVD, No thyromegaly, No LAD Lungs: CTAB Abdomen: non-tender, non-distended Extremities: clear Neurological: no change - Procedures Procedures: Procedures Procedure Code Date GROUP PSYCHOTHERAPY 76216 07/16/15 GROUP PSYCHOTHERAPY GZHZZZZ 07/16/15 INDIVID PSYCHOTHERAP NEC 94.39 09/06/13 OTHER GROUP THERAPY 94.44 05/03/14 RECREATIONAL THERAPY 93.81 08/25/12 Internal Medicine Assmt/Plan - Assessment Assessment: 1.DM. 2.HTN. 3 HYPERLIPIDEMIA. 4.DEMENTIA. - Plan Plan: CONTINUE ON CURRENT MEDICATION AND DIET. Nutritional Asmnt/Malnutr-PDOC - Dietary Evaluation Malnutrition Findings (Please click <Entered> for more info): Nutritional Asmnt/Malnutrition Start: 11/15/17 14: 32 Text: Status: Complete Freq: Document 11/15/17 14:32 [email or web address].[email or web address] (Rec: 11/15/17 14:35 [email or web address]) Nutritional Asmnt/Malnutrition Patient General Information Nutritional Screening Moderate Risk Diagnosis psychosis NOS Pertinent Medical Hx/Surgical Hx DM, HTN, HLD, psychosis Subjective Information Pt confused and depressed. Eating 75-100% of meals. Current Diet Order/ Nutrition Support mechanical soft, chopped, CCHO , MAURA Patient / S.O Not Indicated Pertinent Medications insulin, remeron, MVI, protonix Pertinent Labs POC: 84-107, hgba1c: 6.0 Nutritional Hx/Data Height 1.57 m Height (Calculated Centimeters) 157.5 Current Weight (lbs) 68.039 kg Weight (Calculated Kilograms) 68.0 Weight (Calculated Grams) 04048.9 [place] Body Weight 118 lbs % [place] Body Weight 127 Body Mass Index (BMI) 27.4 Weight Status Overweight GI Symptoms GI Symptoms None Last BM 11/13 Difficult in: None Skin Integrity/Comment: intact Current %PO Good (75-100%) Estimated Nutritional Goals BEE in Kcals: Adj wt of IBW Calories/Kcals/Kg 25-30 Kcals Calculated 2639-9903 kcals Protein: Adj wt of IBW Protein g/k-1.2 Protein Calculated 68-82 g Fluid: ml 2641-7066 mL (1 ml/kcal) Nutritional Problem 1. Problem Problem n/a Etiology none Signs/Symptoms: none Intervention/Recommendation Comments 1. Continue mechanical soft, chopped, CCHO, MAURA diet as ordered Expected Outcomes/Goals Expected Outcomes/Goals Goal: PO intake >50% montior wts, labs, skin, PO intake
--- NOTE | 2017-11-27 02:29 | Progress Notes ---
DATE: 11/26/2017 SUBJECTIVE: The patient was seen and evaluated. The patient's chart reviewed. Dr. Alexis covering for Dr. Peguero. He is a 67-year-old male who is still noted to be very isolative, withdrawn and disengaged. In the last 24 hours, primary psychiatrist had continued to note that the patient has been internally preoccupied and mostly isolating himself. Recently, he was added on Wellbutrin without any complications or side effects of medications and also Seroquel with a total of 300 mg daily with no side effects with Depakote level 66. Today on [id number] evaluation, the patient is very isolative, withdrawn, disengaged, minimally interactive and guarded, minimizing. MENTAL STATUS EXAMINATION: Minimally interactive and disengaged, withdrawn, disorganized, and internally preoccupied. ASSESSMENT AND PLAN: The patient is a 67-year-old male with a history of schizoaffective depressive type, who presents still very distraught, melancholic, will continue with primary psychiatrist's treatment plan, while more collateral baseline information is gathered. He is currently on Wellbutrin 150 mg a day, Clozaril 200 mg at daytime and 100 at nighttime with Depakote 750 a day and mirtazapine at 30 mg. [facility]# [id number]
[2017-11-27] MEDS: INSULIN ASPART SLIDING SCALE 100 UNITS/ML UNIT SUBQ SCH (06:27)
[2017-11-27] MEDS: Pantoprazole 40 mg EC Tab PO SCH (06:31)
[2017-11-27] MEDS: buPROPion XL 150 mg T 24 H PO SCH (08:59)
[2017-11-27] MEDS: Multivitamin Tab PO SCH (08:59)
--- NOTE | 2017-11-27 19:02 | Progress Notes ---
DATE: SUBJECTIVE: The patient was seen and evaluated. The patient's chart reviewed. Covering for Dr. Peguero. Today on [id number] evaluation, the patient denies any side effects of medications. He reported his sleep is little better. Today on mental status examination despite the improvement, he is noted to be very isolative, withdrawn and disengaged. ASSESSMENT AND PLAN: This is a 67-year-old male with history of schizoaffective depressive disorder who continues to feel very distraught and isolating, withdrawn and continues to be high risk. We will continue with the current medication regimen, which includes Wellbutrin, Clozaril, Depakote, and mirtazapine. Primary psychiatrist to continue following tomorrow and adjust medications as needed. [facility]# [phone] [id number]
--- NOTE | 2017-11-27 20:46 | Internal Medicine Prog Note ---
Internal Medicine Subjective - Subjective Service Date: 11/27/17 Patient seen and examined:: with staff Patient is:: awake, verbal, in bed, denies any new complaints Per staff patient has:: no adverse event (HE FEELS WELL) Internal Medicine Objective - Results Result Diagrams: 11/25/17 10:00 11/10/17 16:37 Recent Labs: Laboratory Last Values WBC 6.7 Th/cmm (4.8-10.8) 11/25/17 10:00 RBC 5.15 Mil/cmm (3.80-5.80) 11/25/17 10:00 Hgb 14.2 gm/dL (12-16) 11/25/17 10:00 Hct 43.3 % (41.0-60) 11/25/17 10:00 MCV 84.0 fl (80-99) 11/25/17 10:00 MCH 27.5 pg (27.0-31.0) 11/25/17 10:00 MCHC Differential 32.7 pg (28.0-36.0) 11/25/17 10:00 RDW 15.9 % (11.5-20.0) 11/25/17 10:00 Plt Count 256 Th/cmm (150-400) 11/25/17 10:00 MPV 8.5 fl 11/25/17 10:00 Neutrophils % 66.7 % (40.0-80.0) 11/25/17 10:00 Lymphocytes % 22.4 % (20.0-50.0) 11/25/17 10:00 Monocytes % 7.8 % (2.0-10.0) 11/25/17 10:00 Eosinophils % 2.9 % (0.0-5.0) 11/25/17 10:00 Basophils % 0.2 % (0.0-2.0) 11/25/17 10:00 Sodium 136 mEq/L (136-145) 11/10/17 16:37 Potassium 4.4 mEq/L (3.5-5.1) 11/10/17 16:37 Chloride 102 mEq/L (98-107) 11/10/17 16:37 Carbon Dioxide 27.6 mEq/L (21.0-31.0) 11/10/17 16:37 Anion Gap 10.8 (7.0-16.0) 11/10/17 16:37 BUN 18 mg/dL (7-25) 11/10/17 16:37 Creatinine 1.0 mg/dL (0.7-1.3) 11/10/17 16:37 Est GFR ( Amer) > 60.0 ml/min (>90) 11/10/17 16:37 Est GFR (Non-Af Amer) > 60.0 ml/min 11/10/17 16:37 BUN/Creatinine Ratio 18.0 11/10/17 16:37 Glucose 115 mg/dL (70-105) H 11/10/17 16:37 POC Glucose 100 MG/DL (70 - 105) 11/27/17 05:32 Hemoglobin A1c % 6.0 % (4.0-6.0) 11/10/17 16:37 Calcium 9.5 mg/dL (8.6-10.3) 11/10/17 16:37 Total Bilirubin 0.3 mg/dL (0.3-1.0) 11/10/17 16:37 AST 18 U/L (13-39) 11/10/17 16:37 ALT 11 U/L (7-52) 11/10/17 16:37 Alkaline Phosphatase 62 U/L (34-104) 11/10/17 16:37 Total Protein 6.7 gm/dL (6.0-8.3) 11/10/17 16:37 Albumin 4.2 gm/dL (4.2-5.5) 11/10/17 16:37 Globulin 2.5 gm/dL 11/10/17 16:37 Albumin/Globulin Ratio 1.7 (1.0-1.8) 11/10/17 16:37 Triglycerides 108 mg/dL (<150) 11/10/17 16:37 Cholesterol 157 mg/dL (<200) 11/10/17 16:37 LDL Cholesterol Direct 85 mg/dL (75-193) 11/10/17 16:37 HDL Cholesterol 58 mg/dL (23-92) 11/10/17 16:37 TSH 2.23 uIU/ml (0.34-5.60) 11/10/17 16:37 Urine Source CLEAN C 11/10/17 18:10 Urine Color YELLOW 11/10/17 18:10 Urine Clarity CLEAR (CLEAR) 11/10/17 18:10 Urine pH 7.5 (4.6 - 8.0) 11/10/17 18:10 Ur Specific [place] 1.015 (1.005-1.030) 11/10/17 18:10 Urine Protein NEGATIVE mg/dL (NEGATIVE) 11/10/17 18:10 Urine Glucose (UA) NEGATIVE mg/dL (NEGATIVE) 11/10/17 18:10 Urine Ketones NEGATIVE mg/dL (NEGATIVE) 11/10/17 18:10 Urine Blood NEGATIVE (NEGATIVE) 11/10/17 18:10 Urine Nitrate NEGATIVE (NEGATIVE) 11/10/17 18:10 Urine Bilirubin NEGATIVE (NEGATIVE) 11/10/17 18:10 Urine Urobilinogen 0.2 E.U./dL (0.2 - 1.0) 11/10/17 18:10 Ur Leukocyte Esterase NEGATIVE (NEGATIVE) 11/10/17 18:10 Urine RBC NONE SEEN /hpf (0-5) 11/10/17 18:10 Urine WBC NONE SEEN /hpf (0-5) 11/10/17 18:10 Ur Epithelial Cells NONE SEEN /lpf (FEW) 11/10/17 18:10 Urine Bacteria NONE SEEN /hpf (NONE SEEN) 11/10/17 18:10 Salicylates < 25.0 mg/L (30.0-100.0) L 11/10/17 16:37 Urine Opiates Screen NEGATIVE (NEGATIVE) 11/10/17 18:10 Urine Methadone Screen NEGATIVE (NEGATIVE) 11/10/17 18:10 Acetaminophen < 10.0 ug/mL (10.0-30.0) L 11/10/17 16:37 Ur Barbiturates Screen NEGATIVE (NEGATIVE) 11/10/17 18:10 Valproic Acid 56.3 ug/mL (50.0-100.0) 11/23/17 08:25 Ur Tricyclics Screen NEGATIVE (NEGATIVE) 11/10/17 18:10 Ur Phencyclidine Scrn NEGATIVE (NEGATIVE) 11/10/17 18:10 Amphetamines Screen NEGATIVE (NEGATIVE) 11/10/17 18:10 U Methamphetamines Scrn NEGATIVE (NEGATIVE) 11/10/17 18:10 U Benzodiazepines Scrn NEGATIVE (NEGATIVE) 11/10/17 18:10 U Cocaine Metab Screen NEGATIVE (NEGATIVE) 11/10/17 18:10 U Cannabinoids Screen NEGATIVE (NEGATIVE) 11/10/17 18:10 Ethyl Alcohol < 10 mg/dL (0-10) 11/10/17 16:37 RPR NONREACTIVE (NONREACTIVE) 11/10/17 16:37 - Physical Exam Vitals and I&O: Vital Signs Temp 97.8 F 11/27/17 15:33 Pulse 89 11/27/17 20:29 Resp 20 11/27/17 19:45 BP 129/91 11/27/17 20:29 Pulse Ox 98 11/27/17 19:45 Intake & Output 11/27/17 11/27/17 11/28/17 06:59 18:59 06:59 Intake Total 1800 Balance 1800 Intake: Oral 1800 Other: # Voids 4 # Bowel Movements 0 Stool Characteristics Formed Brown Active Medications: Current Medications Acetaminophen (Tylenol) 650 mg PO Q4HR PRN PRN Reason: Mild Pain / Temp above 100 Stop: 01/10/18 00:16 Al Hydrox/Mg Hydrox/Simethicone (Maalox) 30 ml PO Q4HR PRN PRN Reason: GI DISTRESS Stop: 01/10/18 00:16 Albuterol/Ipratropium (Duoneb Neb) 3 ml HHN Q8HRT PRN PRN Reason: Shortness of Breath Stop: 01/10/18 00:16 Bupropion HCl (Wellbutrin Xl) 150 mg PO DAILY JOEL PRN Reason: Protocol Stop: 01/24/18 08:59 Last Admin: 11/27/17 08:59 Dose: 150 mg Clozapine (Clozaril) 200 mg PO DAILY [facility] Stop: 01/11/18 05:58 Last Admin: 11/27/17 08:58 Dose: 200 mg Clozapine (Clozaril) 100 mg PO HS JOEL PRN Reason: Protocol Stop: 01/17/18 06:57 Last Admin: 11/27/17 20:29 Dose: 100 mg Divalproex Sodium (Depakote Dr) 250 mg PO Q8HR JOEL PRN Reason: Protocol Stop: 01/10/18 04:59 Last Admin: 11/27/17 20:29 Dose: 250 mg Docusate Sodium (Colace) 100 mg PO BID JOEL Stop: 01/10/18 08:59 Last Admin: 11/27/17 16:59 Dose: 100 mg Insulin Aspart (Novolog Insulin Sliding Scale) 0 units SUBQ 0630 JOEL PRN Reason: Protocol Stop: 01/10/18 06:29 Last Admin: 11/27/17 06:27 Dose: Not Given Lorazepam (Ativan) 0.5 mg PO Q6H PRN; Protocol PRN Reason: Agitation Stop: 01/14/18 11:12 Last Admin: 11/27/17 03:58 Dose: 0.5 mg Metoprolol Tartrate (Lopressor) 25 mg PO HS JOEL Stop: 01/10/18 20:59 Last Admin: 11/27/17 20:29 Dose: 25 mg Mirtazapine (Remeron) 30 mg PO HS [facility] PRN Reason: Protocol Stop: 01/20/18 20:59 Last Admin: 11/27/17 20:28 Dose: 30 mg Multivitamins/Vitamin C (Theragran) 1 tab PO DAILY JOEL Stop: 01/10/18 08:59 Last Admin: 11/27/17 08:59 Dose: 1 tab Ondansetron HCl (Zofran Odt) 4 mg PO Q4H PRN PRN Reason: Nausea / Vomiting Stop: 01/10/18 00:16 Pantoprazole Sodium (Protonix) 40 mg PO QDAC JOEL Stop: 01/10/18 07:29 Last Admin: 11/27/17 06:31 Dose: 40 mg Simvastatin (Zocor) 20 mg PO HS [facility] PRN Reason: Protocol Stop: 01/10/18 20:59 Last Admin: 11/27/17 20:29 Dose: 20 mg General: demented HEENT: NC/AT, PERRLA, EOMI, anicteric sclerae, throat clear Neck: Supple, No JVD, No thyromegaly, No LAD Lungs: CTAB Abdomen: non-tender, non-distended Extremities: clear Neurological: no change - Procedures Procedures: Procedures Procedure Code Date GROUP PSYCHOTHERAPY 93906 07/16/15 GROUP PSYCHOTHERAPY GZHZZZZ 07/16/15 INDIVID PSYCHOTHERAP NEC 94.39 09/06/13 OTHER GROUP THERAPY 94.44 05/03/14 RECREATIONAL THERAPY 93.81 08/25/12 Internal Medicine Assmt/Plan - Assessment Assessment: 1.DM. 2.HTN. 3 HYPERLIPIDEMIA. 4.DEMENTIA. - Plan Plan: CONTINUE ON CURRENT MEDICATION AND DIET. Nutritional Asmnt/Malnutr-PDOC - Dietary Evaluation Malnutrition Findings (Please click <Entered> for more info): Nutritional Asmnt/Malnutrition Start: 11/15/17 14: 32 Text: Status: Complete Freq: Document 11/15/17 14:32 [email or web address] (Rec: 11/15/17 14:35 [email or web address]) Nutritional Asmnt/Malnutrition Patient General Information Nutritional Screening Moderate Risk Diagnosis psychosis NOS Pertinent Medical Hx/Surgical Hx DM, HTN, HLD, psychosis Subjective Information Pt confused and depressed. Eating 75-100% of meals. Current Diet Order/ Nutrition Support mechanical soft, chopped, CCHO , MAURA Patient / S.O Not Indicated Pertinent Medications insulin, remeron, MVI, protonix Pertinent Labs POC: 84-107, hgba1c: 6.0 Nutritional Hx/Data Height 1.57 m Height (Calculated Centimeters) 157.5 Current Weight (lbs) 68.039 kg Weight (Calculated Kilograms) 68.0 Weight (Calculated Grams) 55765.9 [place] Body Weight 118 lbs % [place] Body Weight 127 Body Mass Index (BMI) 27.4 Weight Status Overweight GI Symptoms GI Symptoms None Last BM 11/13 Difficult in: None Skin Integrity/Comment: intact Current %PO Good (75-100%) Estimated Nutritional Goals BEE in Kcals: Adj wt of IBW Calories/Kcals/Kg 25-30 Kcals Calculated 2174-1643 kcals Protein: Adj wt of IBW Protein g/k-1.2 Protein Calculated 68-82 g Fluid: ml 0407-8588 mL (1 ml/kcal) Nutritional Problem 1. Problem Problem n/a Etiology none Signs/Symptoms: none Intervention/Recommendation Comments 1. Continue mechanical soft, chopped, CCHO, MAURA diet as ordered Expected Outcomes/Goals Expected Outcomes/Goals Goal: PO intake >50% montior wts, labs, skin, PO intake
[2017-11-28] MEDS: INSULIN ASPART SLIDING SCALE 100 UNITS/ML UNIT SUBQ SCH (06:46)
[2017-11-28] MEDS: Pantoprazole 40 mg EC Tab PO SCH (06:47)
[2017-11-28] MEDS: buPROPion XL 150 mg T 24 H PO SCH (09:44)
[2017-11-28] MEDS: Multivitamin Tab PO SCH (09:44)
--- NOTE | 2017-11-28 19:45 | Internal Medicine Prog Note ---
Internal Medicine Subjective - Subjective Service Date: 11/28/17 Patient seen and examined:: without staff (HE IS DOING BETTER) Patient is:: awake, verbal, in bed, denies any new complaints Per staff patient has:: no adverse event (HE FEELS WELL) Internal Medicine Objective - Results Result Diagrams: 11/25/17 10:00 11/10/17 16:37 Recent Labs: Laboratory Last Values WBC 6.7 Th/cmm (4.8-10.8) 11/25/17 10:00 RBC 5.15 Mil/cmm (3.80-5.80) 11/25/17 10:00 Hgb 14.2 gm/dL (12-16) 11/25/17 10:00 Hct 43.3 % (41.0-60) 11/25/17 10:00 MCV 84.0 fl (80-99) 11/25/17 10:00 MCH 27.5 pg (27.0-31.0) 11/25/17 10:00 MCHC Differential 32.7 pg (28.0-36.0) 11/25/17 10:00 RDW 15.9 % (11.5-20.0) 11/25/17 10:00 Plt Count 256 Th/cmm (150-400) 11/25/17 10:00 MPV 8.5 fl 11/25/17 10:00 Neutrophils % 66.7 % (40.0-80.0) 11/25/17 10:00 Lymphocytes % 22.4 % (20.0-50.0) 11/25/17 10:00 Monocytes % 7.8 % (2.0-10.0) 11/25/17 10:00 Eosinophils % 2.9 % (0.0-5.0) 11/25/17 10:00 Basophils % 0.2 % (0.0-2.0) 11/25/17 10:00 Sodium 136 mEq/L (136-145) 11/10/17 16:37 Potassium 4.4 mEq/L (3.5-5.1) 11/10/17 16:37 Chloride 102 mEq/L (98-107) 11/10/17 16:37 Carbon Dioxide 27.6 mEq/L (21.0-31.0) 11/10/17 16:37 Anion Gap 10.8 (7.0-16.0) 11/10/17 16:37 BUN 18 mg/dL (7-25) 11/10/17 16:37 Creatinine 1.0 mg/dL (0.7-1.3) 11/10/17 16:37 Est GFR ( Amer) > 60.0 ml/min (>90) 11/10/17 16:37 Est GFR (Non-Af Amer) > 60.0 ml/min 11/10/17 16:37 BUN/Creatinine Ratio 18.0 11/10/17 16:37 Glucose 115 mg/dL (70-105) H 11/10/17 16:37 POC Glucose 106 MG/DL (70 - 105) H 11/28/17 05:50 Hemoglobin A1c % 6.0 % (4.0-6.0) 11/10/17 16:37 Calcium 9.5 mg/dL (8.6-10.3) 11/10/17 16:37 Total Bilirubin 0.3 mg/dL (0.3-1.0) 11/10/17 16:37 AST 18 U/L (13-39) 11/10/17 16:37 ALT 11 U/L (7-52) 11/10/17 16:37 Alkaline Phosphatase 62 U/L (34-104) 11/10/17 16:37 Total Protein 6.7 gm/dL (6.0-8.3) 11/10/17 16:37 Albumin 4.2 gm/dL (4.2-5.5) 11/10/17 16:37 Globulin 2.5 gm/dL 11/10/17 16:37 Albumin/Globulin Ratio 1.7 (1.0-1.8) 11/10/17 16:37 Triglycerides 108 mg/dL (<150) 11/10/17 16:37 Cholesterol 157 mg/dL (<200) 11/10/17 16:37 LDL Cholesterol Direct 85 mg/dL (75-193) 11/10/17 16:37 HDL Cholesterol 58 mg/dL (23-92) 11/10/17 16:37 TSH 2.23 uIU/ml (0.34-5.60) 11/10/17 16:37 Urine Source CLEAN C 11/10/17 18:10 Urine Color YELLOW 11/10/17 18:10 Urine Clarity CLEAR (CLEAR) 11/10/17 18:10 Urine pH 7.5 (4.6 - 8.0) 11/10/17 18:10 Ur Specific [place] 1.015 (1.005-1.030) 11/10/17 18:10 Urine Protein NEGATIVE mg/dL (NEGATIVE) 11/10/17 18:10 Urine Glucose (UA) NEGATIVE mg/dL (NEGATIVE) 11/10/17 18:10 Urine Ketones NEGATIVE mg/dL (NEGATIVE) 11/10/17 18:10 Urine Blood NEGATIVE (NEGATIVE) 11/10/17 18:10 Urine Nitrate NEGATIVE (NEGATIVE) 11/10/17 18:10 Urine Bilirubin NEGATIVE (NEGATIVE) 11/10/17 18:10 Urine Urobilinogen 0.2 E.U./dL (0.2 - 1.0) 11/10/17 18:10 Ur Leukocyte Esterase NEGATIVE (NEGATIVE) 11/10/17 18:10 Urine RBC NONE SEEN /hpf (0-5) 11/10/17 18:10 Urine WBC NONE SEEN /hpf (0-5) 11/10/17 18:10 Ur Epithelial Cells NONE SEEN /lpf (FEW) 11/10/17 18:10 Urine Bacteria NONE SEEN /hpf (NONE SEEN) 11/10/17 18:10 Salicylates < 25.0 mg/L (30.0-100.0) L 11/10/17 16:37 Urine Opiates Screen NEGATIVE (NEGATIVE) 11/10/17 18:10 Urine Methadone Screen NEGATIVE (NEGATIVE) 11/10/17 18:10 Acetaminophen < 10.0 ug/mL (10.0-30.0) L 11/10/17 16:37 Ur Barbiturates Screen NEGATIVE (NEGATIVE) 11/10/17 18:10 Valproic Acid 56.3 ug/mL (50.0-100.0) 11/23/17 08:25 Ur Tricyclics Screen NEGATIVE (NEGATIVE) 11/10/17 18:10 Ur Phencyclidine Scrn NEGATIVE (NEGATIVE) 11/10/17 18:10 Amphetamines Screen NEGATIVE (NEGATIVE) 11/10/17 18:10 U Methamphetamines Scrn NEGATIVE (NEGATIVE) 11/10/17 18:10 U Benzodiazepines Scrn NEGATIVE (NEGATIVE) 11/10/17 18:10 U Cocaine Metab Screen NEGATIVE (NEGATIVE) 11/10/17 18:10 U Cannabinoids Screen NEGATIVE (NEGATIVE) 11/10/17 18:10 Ethyl Alcohol < 10 mg/dL (0-10) 11/10/17 16:37 RPR NONREACTIVE (NONREACTIVE) 11/10/17 16:37 - Physical Exam Vitals and I&O: Vital Signs Temp 97.8 F 11/28/17 15:42 Pulse 90 11/28/17 15:42 Resp 20 11/28/17 15:42 BP 110/74 11/28/17 15:42 Pulse Ox 97 11/28/17 15:42 Intake & Output 11/28/17 11/28/17 11/29/17 06:59 18:59 06:59 Intake Total 240 1000 Balance 240 1000 Intake: Oral 240 1000 Other: # Voids 1 4 # Bowel Movements 1 Stool Characteristics Formed Formed Brown Brown Active Medications: Current Medications Acetaminophen (Tylenol) 650 mg PO Q4HR PRN PRN Reason: Mild Pain / Temp above 100 Stop: 01/10/18 00:16 Al Hydrox/Mg Hydrox/Simethicone (Maalox) 30 ml PO Q4HR PRN PRN Reason: GI DISTRESS Stop: 01/10/18 00:16 Albuterol/Ipratropium (Duoneb Neb) 3 ml HHN Q8HRT PRN PRN Reason: Shortness of Breath Stop: 01/10/18 00:16 Bupropion HCl (Wellbutrin Xl) 300 mg PO DAILY [facility] PRN Reason: Protocol Stop: 01/27/18 11:34 Clozapine (Clozaril) 200 mg PO DAILY [facility] Stop: 01/11/18 05:58 Last Admin: 11/28/17 09:45 Dose: 200 mg Clozapine 100 mg/ Clozapine 25 (mg) 125 mg PO HS [facility]EL Stop: 01/27/18 20:59 Divalproex Sodium (Depakote Dr) 250 mg PO Q8HR [facility] PRN Reason: Protocol Stop: 01/10/18 04:59 Last Admin: 11/28/17 15:10 Dose: Not Given Docusate Sodium (Colace) 100 mg PO BID [facility] Stop: 01/10/18 08:59 Last Admin: 11/28/17 16:27 Dose: Not Given Insulin Aspart (Novolog Insulin Sliding Scale) 0 units SUBQ 0630 JOEL PRN Reason: Protocol Stop: 01/10/18 06:29 Last Admin: 11/28/17 06:46 Dose: Not Given Lorazepam (Ativan) 0.5 mg PO Q6H PRN PRN Reason: Agitation Stop: 01/27/18 14:57 Last Admin: 11/28/17 15:14 Dose: 0.5 mg Metoprolol Tartrate (Lopressor) 25 mg PO HS [facility] Stop: 01/10/18 20:59 Last Admin: 11/27/17 20:29 Dose: 25 mg Mirtazapine (Remeron) 30 mg PO HS [facility] PRN Reason: Protocol Stop: 01/20/18 20:59 Last Admin: 11/27/17 20:28 Dose: 30 mg Multivitamins/Vitamin C (Theragran) 1 tab PO DAILY [facility] Stop: 01/10/18 08:59 Last Admin: 11/28/17 09:44 Dose: 1 tab Ondansetron HCl (Zofran Odt) 4 mg PO Q4H PRN PRN Reason: Nausea / Vomiting Stop: 01/10/18 00:16 Pantoprazole Sodium (Protonix) 40 mg PO QDAC [facility]EL Stop: 01/10/18 07:29 Last Admin: 11/28/17 06:47 Dose: Not Given Simvastatin (Zocor) 20 mg PO [facility] PRN Reason: Protocol Stop: 01/10/18 20:59 Last Admin: 11/27/17 20:29 Dose: 20 mg General: demented HEENT: NC/AT, PERRLA, EOMI, anicteric sclerae, throat clear Neck: Supple, No JVD, No thyromegaly, No LAD Lungs: CTAB Abdomen: non-tender, non-distended Extremities: clear Neurological: no change - Procedures Procedures: Procedures Procedure Code Date GROUP PSYCHOTHERAPY 17738 07/16/15 GROUP PSYCHOTHERAPY GZHZZZZ 07/16/15 INDIVID PSYCHOTHERAP NEC 94.39 09/06/13 OTHER GROUP THERAPY 94.44 05/03/14 RECREATIONAL THERAPY 93.81 08/25/12 Internal Medicine Assmt/Plan - Assessment Assessment: 1.DM. 2.HTN. 3 HYPERLIPIDEMIA. 4.DEMENTIA. - Plan Plan: CONTINUE ON CURRENT MEDICATION AND DIET. Nutritional Asmnt/Malnutr-PDOC - Dietary Evaluation Malnutrition Findings (Please click <Entered> for more info): Nutritional Asmnt/Malnutrition Start: 11/15/17 14: 32 Text: Status: Complete Freq: Document 11/15/17 14:32 [email or web address] (Rec: 11/15/17 14:35 [email or web address]) Nutritional Asmnt/Malnutrition Patient General Information Nutritional Screening Moderate Risk Diagnosis psychosis NOS Pertinent Medical Hx/Surgical Hx DM, HTN, HLD, psychosis Subjective Information Pt confused and depressed. Eating 75-100% of meals. Current Diet Order/ Nutrition Support mechanical soft, chopped, CCHO , MAURA Patient / S.O Not Indicated Pertinent Medications insulin, remeron, MVI, protonix Pertinent Labs POC: 84-107, hgba1c: 6.0 Nutritional Hx/Data Height 1.57 m Height (Calculated Centimeters) 157.5 Current Weight (lbs) 68.039 kg Weight (Calculated Kilograms) 68.0 Weight (Calculated Grams) 76665.9 [place] Body Weight 118 lbs % [place] Body Weight 127 Body Mass Index (BMI) 27.4 Weight Status Overweight GI Symptoms GI Symptoms None Last BM 11/13 Difficult in: None Skin Integrity/Comment: intact Current %PO Good (75-100%) Estimated Nutritional Goals BEE in Kcals: Adj wt of IBW Calories/Kcals/Kg 25-30 Kcals Calculated 3507-4359 kcals Protein: Adj wt of IBW Protein g/k-1.2 Protein Calculated 68-82 g Fluid: ml 4088-2820 mL (1 ml/kcal) Nutritional Problem 1. Problem Problem n/a Etiology none Signs/Symptoms: none Intervention/Recommendation Comments 1. Continue mechanical soft, chopped, CCHO, MAURA diet as ordered Expected Outcomes/Goals Expected Outcomes/Goals Goal: PO intake >50% montior wts, labs, skin, PO intake
[2017-11-28] MEDS: cloZAPine 100 MG, cloZAPine 25 MG PO SCH (21:22)
--- NOTE | 2017-11-28 23:46 | Progress Notes ---
DATE: 11/28/2017 Case was discussed with staff of the patient, reviewed records. This patient reports hearing voices, isolating himself, continues to be unpredictable, and impulsive. He is denying that he have any current plans of harming himself, but he is bothered by the voices. He isolates himself. I will be increasing his Clozaril dose to 125 mg at bedtime and continue the 200 mg in the morning. I did initiate Wellbutrin on him a few days ago, because of his lack of energy and motivation I will be increasing the dose to 300 mg a day and so far no side effects from the medication, no sedation, no nausea, and no extrapyramidal symptoms. We will continue to work with the patient in group therapy, milieu therapy, and adjust the medications as needed. JOB# [id number]
[2017-11-29] MEDS: INSULIN ASPART SLIDING SCALE 100 UNITS/ML UNIT SUBQ SCH (06:05)
[2017-11-29] MEDS: Pantoprazole 40 mg EC Tab PO SCH (06:34)
[2017-11-29] MEDS: buPROPion XL 150 mg T 24 H PO SCH (11:01)
[2017-11-29] MEDS: Multivitamin Tab PO SCH (11:03)
--- NOTE | 2017-11-29 19:11 | Internal Medicine Prog Note ---
Internal Medicine Subjective - Subjective Service Date: 11/29/17 Patient seen and examined:: without staff Patient is:: awake, verbal, in bed, denies any new complaints Per staff patient has:: no adverse event (HE FEELS WELL) Internal Medicine Objective - Results Result Diagrams: 11/25/17 10:00 11/10/17 16:37 Recent Labs: Laboratory Last Values WBC 6.7 Th/cmm (4.8-10.8) 11/25/17 10:00 RBC 5.15 Mil/cmm (3.80-5.80) 11/25/17 10:00 Hgb 14.2 gm/dL (12-16) 11/25/17 10:00 Hct 43.3 % (41.0-60) 11/25/17 10:00 MCV 84.0 fl (80-99) 11/25/17 10:00 MCH 27.5 pg (27.0-31.0) 11/25/17 10:00 MCHC Differential 32.7 pg (28.0-36.0) 11/25/17 10:00 RDW 15.9 % (11.5-20.0) 11/25/17 10:00 Plt Count 256 Th/cmm (150-400) 11/25/17 10:00 MPV 8.5 fl 11/25/17 10:00 Neutrophils % 66.7 % (40.0-80.0) 11/25/17 10:00 Lymphocytes % 22.4 % (20.0-50.0) 11/25/17 10:00 Monocytes % 7.8 % (2.0-10.0) 11/25/17 10:00 Eosinophils % 2.9 % (0.0-5.0) 11/25/17 10:00 Basophils % 0.2 % (0.0-2.0) 11/25/17 10:00 Sodium 136 mEq/L (136-145) 11/10/17 16:37 Potassium 4.4 mEq/L (3.5-5.1) 11/10/17 16:37 Chloride 102 mEq/L (98-107) 11/10/17 16:37 Carbon Dioxide 27.6 mEq/L (21.0-31.0) 11/10/17 16:37 Anion Gap 10.8 (7.0-16.0) 11/10/17 16:37 BUN 18 mg/dL (7-25) 11/10/17 16:37 Creatinine 1.0 mg/dL (0.7-1.3) 11/10/17 16:37 Est GFR ( Amer) > 60.0 ml/min (>90) 11/10/17 16:37 Est GFR (Non-Af Amer) > 60.0 ml/min 11/10/17 16:37 BUN/Creatinine Ratio 18.0 11/10/17 16:37 Glucose 115 mg/dL (70-105) H 11/10/17 16:37 POC Glucose 110 MG/DL (70 - 105) H 11/29/17 05:58 Hemoglobin A1c % 6.0 % (4.0-6.0) 11/10/17 16:37 Calcium 9.5 mg/dL (8.6-10.3) 11/10/17 16:37 Total Bilirubin 0.3 mg/dL (0.3-1.0) 11/10/17 16:37 AST 18 U/L (13-39) 11/10/17 16:37 ALT 11 U/L (7-52) 11/10/17 16:37 Alkaline Phosphatase 62 U/L (34-104) 11/10/17 16:37 Total Protein 6.7 gm/dL (6.0-8.3) 11/10/17 16:37 Albumin 4.2 gm/dL (4.2-5.5) 11/10/17 16:37 Globulin 2.5 gm/dL 11/10/17 16:37 Albumin/Globulin Ratio 1.7 (1.0-1.8) 11/10/17 16:37 Triglycerides 108 mg/dL (<150) 11/10/17 16:37 Cholesterol 157 mg/dL (<200) 11/10/17 16:37 LDL Cholesterol Direct 85 mg/dL (75-193) 11/10/17 16:37 HDL Cholesterol 58 mg/dL (23-92) 11/10/17 16:37 TSH 2.23 uIU/ml (0.34-5.60) 11/10/17 16:37 Urine Source CLEAN C 11/10/17 18:10 Urine Color YELLOW 11/10/17 18:10 Urine Clarity CLEAR (CLEAR) 11/10/17 18:10 Urine pH 7.5 (4.6 - 8.0) 11/10/17 18:10 Ur Specific [place] 1.015 (1.005-1.030) 11/10/17 18:10 Urine Protein NEGATIVE mg/dL (NEGATIVE) 11/10/17 18:10 Urine Glucose (UA) NEGATIVE mg/dL (NEGATIVE) 11/10/17 18:10 Urine Ketones NEGATIVE mg/dL (NEGATIVE) 11/10/17 18:10 Urine Blood NEGATIVE (NEGATIVE) 11/10/17 18:10 Urine Nitrate NEGATIVE (NEGATIVE) 11/10/17 18:10 Urine Bilirubin NEGATIVE (NEGATIVE) 11/10/17 18:10 Urine Urobilinogen 0.2 E.U./dL (0.2 - 1.0) 11/10/17 18:10 Ur Leukocyte Esterase NEGATIVE (NEGATIVE) 11/10/17 18:10 Urine RBC NONE SEEN /hpf (0-5) 11/10/17 18:10 Urine WBC NONE SEEN /hpf (0-5) 11/10/17 18:10 Ur Epithelial Cells NONE SEEN /lpf (FEW) 11/10/17 18:10 Urine Bacteria NONE SEEN /hpf (NONE SEEN) 11/10/17 18:10 Salicylates < 25.0 mg/L (30.0-100.0) L 11/10/17 16:37 Urine Opiates Screen NEGATIVE (NEGATIVE) 11/10/17 18:10 Urine Methadone Screen NEGATIVE (NEGATIVE) 11/10/17 18:10 Acetaminophen < 10.0 ug/mL (10.0-30.0) L 11/10/17 16:37 Ur Barbiturates Screen NEGATIVE (NEGATIVE) 11/10/17 18:10 Valproic Acid 56.3 ug/mL (50.0-100.0) 11/23/17 08:25 Ur Tricyclics Screen NEGATIVE (NEGATIVE) 11/10/17 18:10 Ur Phencyclidine Scrn NEGATIVE (NEGATIVE) 11/10/17 18:10 Amphetamines Screen NEGATIVE (NEGATIVE) 11/10/17 18:10 U Methamphetamines Scrn NEGATIVE (NEGATIVE) 11/10/17 18:10 U Benzodiazepines Scrn NEGATIVE (NEGATIVE) 11/10/17 18:10 U Cocaine Metab Screen NEGATIVE (NEGATIVE) 02/08/18 18:10 U Cannabinoids Screen NEGATIVE (NEGATIVE) 11/10/17 18:10 Ethyl Alcohol < 10 mg/dL (0-10) 11/10/17 16:37 RPR NONREACTIVE (NONREACTIVE) 11/10/17 16:37 - Physical Exam Vitals and I&O: Vital Signs Temp 98.0 F 11/29/17 14:00 Pulse 90 11/29/17 14:00 Resp 20 11/29/17 14:00 BP 105/61 11/29/17 14:00 Pulse Ox 98 11/29/17 14:00 Intake & Output 11/29/17 11/29/17 11/30/17 06:59 18:59 06:59 Intake Total 240 800 Balance 240 800 Intake: Oral 240 800 Other: # Voids 3 3 # Bowel Movements 0 1 Stool Characteristics Formed Formed Brown Brown Active Medications: Current Medications Acetaminophen (Tylenol) 650 mg PO Q4HR PRN PRN Reason: Mild Pain / Temp above 100 Stop: 01/10/18 00:16 Al Hydrox/Mg Hydrox/Simethicone (Maalox) 30 ml PO Q4HR PRN PRN Reason: GI DISTRESS Stop: 01/10/18 00:16 Albuterol/Ipratropium (Duoneb Neb) 3 ml HHN Q8HRT PRN PRN Reason: Shortness of Breath Stop: 01/10/18 00:16 Bupropion HCl (Wellbutrin Xl) 300 mg PO DAILY JOEL PRN Reason: Protocol Stop: 01/27/18 11:34 Last Admin: 11/29/17 11:01 Dose: 300 mg Clozapine (Clozaril) 200 mg PO DAILY JOEL Stop: 01/11/18 05:58 Last Admin: 11/29/17 11:01 Dose: 200 mg Clozapine 100 mg/ Clozapine 25 (mg) 125 mg PO HS JOEL Stop: 01/27/18 20:59 Last Admin: 11/28/17 21:22 Dose: 125 mg Divalproex Sodium (Depakote Dr) 250 mg PO Q8HR JOEL PRN Reason: Protocol Stop: 01/10/18 04:59 Last Admin: 11/29/17 15:16 Dose: 250 mg Docusate Sodium (Colace) 100 mg PO BID JOEL Stop: 01/10/18 08:59 Last Admin: 11/29/17 17:30 Dose: Not Given Insulin Aspart (Novolog Insulin Sliding Scale) 0 units SUBQ 0630 JOEL PRN Reason: Protocol Stop: 01/10/18 06:29 Last Admin: 11/29/17 06:05 Dose: Not Given Lorazepam (Ativan) 0.5 mg PO Q6H PRN PRN Reason: Agitation Stop: 01/27/18 14:57 Last Admin: 11/28/17 15:14 Dose: 0.5 mg Metoprolol Tartrate (Lopressor) 25 mg PO HS JOEL Stop: 01/10/18 20:59 Last Admin: 11/28/17 21:21 Dose: 25 mg Mirtazapine (Remeron) 30 mg PO HS JOEL PRN Reason: Protocol Stop: 01/20/18 20:59 Last Admin: 11/28/17 21:24 Dose: 30 mg Multivitamins/Vitamin C (Theragran) 1 tab PO DAILY JOEL Stop: 01/10/18 08:59 Last Admin: 11/29/17 11:03 Dose: Not Given Ondansetron HCl (Zofran Odt) 4 mg PO Q4H PRN PRN Reason: Nausea / Vomiting Stop: 01/10/18 00:16 Pantoprazole Sodium (Protonix) 40 mg PO QDAC JOEL Stop: 01/10/18 07:29 Last Admin: 11/29/17 06:34 Dose: 40 mg Simvastatin (Zocor) 20 mg PO HS JOEL PRN Reason: Protocol Stop: 01/10/18 20:59 Last Admin: 11/28/17 21:20 Dose: 20 mg General: demented HEENT: NC/AT, PERRLA, EOMI, anicteric sclerae, throat clear Neck: Supple, No JVD, No thyromegaly, No LAD Lungs: CTAB Abdomen: non-tender, non-distended Extremities: clear Neurological: no change - Procedures Procedures: Procedures Procedure Code Date GROUP PSYCHOTHERAPY 26844 07/16/15 GROUP PSYCHOTHERAPY GZHZZZZ 07/16/15 INDIVID PSYCHOTHERAP NEC 94.39 09/06/13 OTHER GROUP THERAPY 94.44 05/03/14 RECREATIONAL THERAPY 93.81 08/25/12 Internal Medicine Assmt/Plan - Assessment Assessment: 1.DM. 2.HTN. 3 HYPERLIPIDEMIA. 4.DEMENTIA. - Plan Plan: CONTINUE ON CURRENT MEDICATION AND DIET. Nutritional Asmnt/Malnutr-PDOC - Dietary Evaluation Malnutrition Findings (Please click <Entered> for more info): Nutritional Asmnt/Malnutrition Start: 11/15/17 14: 32 Text: Status: Complete Freq: Document 11/15/17 14:32 [email or web address] (Rec: 11/15/17 14:35 [email or web address]) Nutritional Asmnt/Malnutrition Patient General Information Nutritional Screening Moderate Risk Diagnosis psychosis NOS Pertinent Medical Hx/Surgical Hx DM, HTN, HLD, psychosis Subjective Information Pt confused and depressed. Eating 75-100% of meals. Current Diet Order/ Nutrition Support mechanical soft, chopped, CCHO , MAURA Patient / S.O Not Indicated Pertinent Medications insulin, remeron, MVI, protonix Pertinent Labs POC: 84-107, hgba1c: 6.0 Nutritional Hx/Data Height 1.57 m Height (Calculated Centimeters) 157.5 Current Weight (lbs) 68.039 kg Weight (Calculated Kilograms) 68.0 Weight (Calculated Grams) 07933.9 [place] Body Weight 118 lbs % [place] Body Weight 127 Body Mass Index (BMI) 27.4 Weight Status Overweight GI Symptoms GI Symptoms None Last BM 11/13 Difficult in: None Skin Integrity/Comment: intact Current %PO Good (75-100%) Estimated Nutritional Goals BEE in Kcals: Adj wt of IBW Calories/Kcals/Kg 25-30 Kcals Calculated 4096-6282 kcals Protein: Adj wt of IBW Protein g/k-1.2 Protein Calculated 68-82 g Fluid: ml 7056-4342 mL (1 ml/kcal) Nutritional Problem 1. Problem Problem n/a Etiology none Signs/Symptoms: none Intervention/Recommendation Comments 1. Continue mechanical soft, chopped, CCHO, MAURA diet as ordered Expected Outcomes/Goals Expected Outcomes/Goals Goal: PO intake >50% montior wts, labs, skin, PO intake
[2017-11-29] MEDS: cloZAPine 100 MG, cloZAPine 25 MG PO SCH (21:16)
--- NOTE | 2017-11-29 22:17 | Progress Notes ---
DATE: 11/29/2017 Case was discussed with staff of the patient and reviewed the records. The patient continues to be internally preoccupied. Continues to be unable to make safe plan for self-care, unpredictable, impulsive, responding to internal stimuli, very depressed, but he denies any intent to harm himself or anybody. I did increase his Wellbutrin to 20 mg a day, also increased his Clozapine to 125 mcg at bedtime with no side effects, no sedation, no nausea, no extrapyramidal symptoms, other systemic level is to be checked. I will continue the patient in group therapy, milieu therapy, adjust medication as needed. JOB# [id number]
[2017-11-30] MEDS: INSULIN ASPART SLIDING SCALE 100 UNITS/ML UNIT SUBQ SCH (06:37)
[2017-11-30] MEDS: Pantoprazole 40 mg EC Tab PO SCH (06:38)
[2017-11-30] MEDS: buPROPion XL 150 mg T 24 H PO SCH (10:46)
[2017-11-30] MEDS: Multivitamin Tab PO SCH (10:46)
--- NOTE | 2017-11-30 13:11 | Internal Medicine Prog Note ---
Internal Medicine Subjective - Subjective Service Date: 11/30/17 Patient seen and examined:: with staff Patient is:: awake, verbal, in bed, denies any new complaints Per staff patient has:: no adverse event (HE FEELS WELL) Internal Medicine Objective - Results Result Diagrams: 11/25/17 10:00 11/10/17 16:37 Recent Labs: Laboratory Last Values WBC 6.7 Th/cmm (4.8-10.8) 11/25/17 10:00 RBC 5.15 Mil/cmm (3.80-5.80) 11/25/17 10:00 Hgb 14.2 gm/dL (12-16) 11/25/17 10:00 Hct 43.3 % (41.0-60) 11/25/17 10:00 MCV 84.0 fl (80-99) 11/25/17 10:00 MCH 27.5 pg (27.0-31.0) 11/25/17 10:00 MCHC Differential 32.7 pg (28.0-36.0) 11/25/17 10:00 RDW 15.9 % (11.5-20.0) 11/25/17 10:00 Plt Count 256 Th/cmm (150-400) 11/25/17 10:00 MPV 8.5 fl 11/25/17 10:00 Neutrophils % 66.7 % (40.0-80.0) 11/25/17 10:00 Lymphocytes % 22.4 % (20.0-50.0) 11/25/17 10:00 Monocytes % 7.8 % (2.0-10.0) 11/25/17 10:00 Eosinophils % 2.9 % (0.0-5.0) 11/25/17 10:00 Basophils % 0.2 % (0.0-2.0) 11/25/17 10:00 Sodium 136 mEq/L (136-145) 11/10/17 16:37 Potassium 4.4 mEq/L (3.5-5.1) 11/10/17 16:37 Chloride 102 mEq/L (98-107) 11/10/17 16:37 Carbon Dioxide 27.6 mEq/L (21.0-31.0) 11/10/17 16:37 Anion Gap 10.8 (7.0-16.0) 11/10/17 16:37 BUN 18 mg/dL (7-25) 11/10/17 16:37 Creatinine 1.0 mg/dL (0.7-1.3) 11/10/17 16:37 Est GFR ( Amer) > 60.0 ml/min (>90) 11/10/17 16:37 Est GFR (Non-Af Amer) > 60.0 ml/min 11/10/17 16:37 BUN/Creatinine Ratio 18.0 11/10/17 16:37 Glucose 115 mg/dL (70-105) H 11/10/17 16:37 POC Glucose 110 MG/DL (70 - 105) H 11/29/17 05:58 Hemoglobin A1c % 6.0 % (4.0-6.0) 11/10/17 16:37 Calcium 9.5 mg/dL (8.6-10.3) 11/10/17 16:37 Total Bilirubin 0.3 mg/dL (0.3-1.0) 11/10/17 16:37 AST 18 U/L (13-39) 11/10/17 16:37 ALT 11 U/L (7-52) 11/10/17 16:37 Alkaline Phosphatase 62 U/L (34-104) 11/10/17 16:37 Total Protein 6.7 gm/dL (6.0-8.3) 11/10/17 16:37 Albumin 4.2 gm/dL (4.2-5.5) 11/10/17 16:37 Globulin 2.5 gm/dL 11/10/17 16:37 Albumin/Globulin Ratio 1.7 (1.0-1.8) 11/10/17 16:37 Triglycerides 108 mg/dL (<150) 11/10/17 16:37 Cholesterol 157 mg/dL (<200) 11/10/17 16:37 LDL Cholesterol Direct 85 mg/dL (75-193) 11/10/17 16:37 HDL Cholesterol 58 mg/dL (23-92) 11/10/17 16:37 TSH 2.23 uIU/ml (0.34-5.60) 11/10/17 16:37 Urine Source CLEAN C 11/10/17 18:10 Urine Color YELLOW 11/10/17 18:10 Urine Clarity CLEAR (CLEAR) 11/10/17 18:10 Urine pH 7.5 (4.6 - 8.0) 11/10/17 18:10 Ur Specific [place] 1.015 (1.005-1.030) 11/10/17 18:10 Urine Protein NEGATIVE mg/dL (NEGATIVE) 11/10/17 18:10 Urine Glucose (UA) NEGATIVE mg/dL (NEGATIVE) 11/10/17 18:10 Urine Ketones NEGATIVE mg/dL (NEGATIVE) 11/10/17 18:10 Urine Blood NEGATIVE (NEGATIVE) 11/10/17 18:10 Urine Nitrate NEGATIVE (NEGATIVE) 11/10/17 18:10 Urine Bilirubin NEGATIVE (NEGATIVE) 11/10/17 18:10 Urine Urobilinogen 0.2 E.U./dL (0.2 - 1.0) 11/10/17 18:10 Ur Leukocyte Esterase NEGATIVE (NEGATIVE) 11/10/17 18:10 Urine RBC NONE SEEN /hpf (0-5) 11/10/17 18:10 Urine WBC NONE SEEN /hpf (0-5) 11/10/17 18:10 Ur Epithelial Cells NONE SEEN /lpf (FEW) 11/10/17 18:10 Urine Bacteria NONE SEEN /hpf (NONE SEEN) 11/10/17 18:10 Salicylates < 25.0 mg/L (30.0-100.0) L 11/10/17 16:37 Urine Opiates Screen NEGATIVE (NEGATIVE) 11/10/17 18:10 Urine Methadone Screen NEGATIVE (NEGATIVE) 11/10/17 18:10 Acetaminophen < 10.0 ug/mL (10.0-30.0) L 11/10/17 16:37 Ur Barbiturates Screen NEGATIVE (NEGATIVE) 11/10/17 18:10 Valproic Acid 56.3 ug/mL (50.0-100.0) 11/23/17 08:25 Ur Tricyclics Screen NEGATIVE (NEGATIVE) 11/10/17 18:10 Ur Phencyclidine Scrn NEGATIVE (NEGATIVE) 11/10/17 18:10 Amphetamines Screen NEGATIVE (NEGATIVE) 11/10/17 18:10 U Methamphetamines Scrn NEGATIVE (NEGATIVE) 11/10/17 18:10 U Benzodiazepines Scrn NEGATIVE (NEGATIVE) 11/10/17 18:10 U Cocaine Metab Screen NEGATIVE (NEGATIVE) 02/08/18 18:10 U Cannabinoids Screen NEGATIVE (NEGATIVE) 11/10/17 18:10 Ethyl Alcohol < 10 mg/dL (0-10) 11/10/17 16:37 RPR NONREACTIVE (NONREACTIVE) 11/10/17 16:37 - Physical Exam Vitals and I&O: Vital Signs Temp 97.0 F 11/30/17 06:07 Pulse 101 11/30/17 07:33 Resp 17 11/30/17 07:33 BP 106/64 11/30/17 06:07 Pulse Ox 98 11/30/17 07:33 Intake & Output 11/29/17 11/30/17 11/30/17 18:59 06:59 18:59 Intake Total 800 240 Balance 800 240 Intake: Oral 800 240 Other: # Voids 3 2 # Bowel Movements 1 Stool Characteristics Formed Brown Active Medications: Current Medications Acetaminophen (Tylenol) 650 mg PO Q4HR PRN PRN Reason: Mild Pain / Temp above 100 Stop: 01/10/18 00:16 Al Hydrox/Mg Hydrox/Simethicone (Maalox) 30 ml PO Q4HR PRN PRN Reason: GI DISTRESS Stop: 01/10/18 00:16 Albuterol/Ipratropium (Duoneb Neb) 3 ml HHN Q8HRT PRN PRN Reason: Shortness of Breath Stop: 01/10/18 00:16 Bupropion HCl (Wellbutrin Xl) 300 mg PO DAILY JOEL PRN Reason: Protocol Stop: 01/27/18 11:34 Last Admin: 11/30/17 10:46 Dose: 300 mg Divalproex Sodium (Depakote Dr) 250 mg PO Q8HR JOEL PRN Reason: Protocol Stop: 01/10/18 04:59 Last Admin: 11/30/17 06:00 Dose: 250 mg Docusate Sodium (Colace) 100 mg PO BID JOEL Stop: 01/10/18 08:59 Last Admin: 11/30/17 10:46 Dose: 100 mg Insulin Aspart (Novolog Insulin Sliding Scale) 0 units SUBQ 0630 JOEL PRN Reason: Protocol Stop: 01/10/18 06:29 Last Admin: 11/30/17 06:37 Dose: Not Given Lorazepam (Ativan) 0.5 mg PO Q6H PRN PRN Reason: Agitation Stop: 01/27/18 14:57 Last Admin: 11/28/17 15:14 Dose: 0.5 mg Metoprolol Tartrate (Lopressor) 25 mg PO HS JOEL Stop: 01/10/18 20:59 Last Admin: 11/29/17 21:17 Dose: 25 mg Mirtazapine (Remeron) 30 mg PO HS JOEL PRN Reason: Protocol Stop: 01/20/18 20:59 Last Admin: 11/29/17 21:16 Dose: 30 mg Multivitamins/Vitamin C (Theragran) 1 tab PO DAILY JOEL Stop: 01/10/18 08:59 Last Admin: 11/30/17 10:46 Dose: 1 tab Ondansetron HCl (Zofran Odt) 4 mg PO Q4H PRN PRN Reason: Nausea / Vomiting Stop: 01/10/18 00:16 Pantoprazole Sodium (Protonix) 40 mg PO QDAC JOEL Stop: 01/10/18 07:29 Last Admin: 11/30/17 06:38 Dose: 40 mg Quetiapine Fumarate (Seroquel) 100 mg PO BID JOEL PRN Reason: Protocol Stop: 01/29/18 08:59 Last Admin: 11/30/17 10:46 Dose: 100 mg Simvastatin (Zocor) 20 mg PO HS JOEL PRN Reason: Protocol Stop: 01/10/18 20:59 Last Admin: 11/29/17 21:16 Dose: 20 mg General: demented HEENT: NC/AT, PERRLA, EOMI, anicteric sclerae, throat clear Neck: Supple, No JVD, No thyromegaly, No LAD Lungs: CTAB Abdomen: non-tender, non-distended Extremities: clear Neurological: no change - Procedures Procedures: Procedures Procedure Code Date GROUP PSYCHOTHERAPY 55570 07/16/15 GROUP PSYCHOTHERAPY GZHZZZZ 07/16/15 INDIVID PSYCHOTHERAP NEC 94.39 09/06/13 OTHER GROUP THERAPY 94.44 05/03/14 RECREATIONAL THERAPY 93.81 08/25/12 Internal Medicine Assmt/Plan - Assessment Assessment: 1.DM. 2.HTN. 3 HYPERLIPIDEMIA. 4.DEMENTIA. - Plan Plan: CONTINUE ON CURRENT MEDICATION AND DIET. Nutritional Asmnt/Malnutr-PDOC - Dietary Evaluation Malnutrition Findings (Please click <Entered> for more info): Nutritional Asmnt/Malnutrition Start: 11/15/17 14: 32 Text: Status: Complete Freq: Document 11/15/17 14:32 [email or web address] (Rec: 11/15/17 14:35 [email or web address]) Nutritional Asmnt/Malnutrition Patient General Information Nutritional Screening Moderate Risk Diagnosis psychosis NOS Pertinent Medical Hx/Surgical Hx DM, HTN, HLD, psychosis Subjective Information Pt confused and depressed. Eating 75-100% of meals. Current Diet Order/ Nutrition Support mechanical soft, chopped, CCHO , MAURA Patient / S.O Not Indicated Pertinent Medications insulin, remeron, MVI, protonix Pertinent Labs POC: 84-107, hgba1c: 6.0 Nutritional Hx/Data Height 1.57 m Height (Calculated Centimeters) 157.5 Current Weight (lbs) 68.039 kg Weight (Calculated Kilograms) 68.0 Weight (Calculated Grams) 40235.9 [place] Body Weight 118 lbs % [place] Body Weight 127 Body Mass Index (BMI) 27.4 Weight Status Overweight GI Symptoms GI Symptoms None Last BM 11/13 Difficult in: None Skin Integrity/Comment: intact Current %PO Good (75-100%) Estimated Nutritional Goals BEE in Kcals: Adj wt of IBW Calories/Kcals/Kg 25-30 Kcals Calculated 7146-2007 kcals Protein: Adj wt of IBW Protein g/k-1.2 Protein Calculated 68-82 g Fluid: ml 2420-4059 mL (1 ml/kcal) Nutritional Problem 1. Problem Problem n/a Etiology none Signs/Symptoms: none Intervention/Recommendation Comments 1. Continue mechanical soft, chopped, CCHO, MAURA diet as ordered Expected Outcomes/Goals Expected Outcomes/Goals Goal: PO intake >50% montior wts, labs, skin, PO intake
--- NOTE | 2017-11-30 22:10 | Progress Notes ---
DATE: 11/30/2017 Case was discussed with staff of the patient, reviewed records. The patient reports he continues to hear voices. He believes that Clozaril has not been helpful to him. He would rather go back on Seroquel. He said he felt better on Seroquel, so I will be discontinuing the Clozaril. I initiated Seroquel on him at 100 mg twice a day. He used to be on much higher dose in the past. He denies that he will harm himself. He says the voices do not tell him fairly to harm himself. He is more alert since I added the Wellbutrin. Continues to be unpredictable and impulsive, looking somewhat disheveled, and I will discussed side effects of the Seroquel. Also, I will be checking his Depakote level. I will continue to work with the patient in group therapy, milieu therapy, and adjust medications as needed. JOB# [id number]
[2017-12-01] MEDS: INSULIN ASPART SLIDING SCALE 100 UNITS/ML UNIT SUBQ SCH (05:55)
[2017-12-01] MEDS: Pantoprazole 40 mg EC Tab PO SCH (06:36)
[2017-12-01] MEDS: Multivitamin Tab PO SCH (08:15)
[2017-12-01] MEDS: buPROPion XL 150 mg T 24 H PO SCH (08:15)
--- NOTE | 2017-12-01 18:27 | Internal Medicine Prog Note ---
Internal Medicine Subjective - Subjective Service Date: 12/01/17 Patient seen and examined:: without staff Patient is:: awake, verbal, in bed, denies any new complaints Per staff patient has:: no adverse event (HE FEELS WELL) Internal Medicine Objective - Results Result Diagrams: 11/25/17 10:00 11/10/17 16:37 Recent Labs: Laboratory Last Values WBC 6.7 Th/cmm (4.8-10.8) 11/25/17 10:00 RBC 5.15 Mil/cmm (3.80-5.80) 11/25/17 10:00 Hgb 14.2 gm/dL (12-16) 11/25/17 10:00 Hct 43.3 % (41.0-60) 11/25/17 10:00 MCV 84.0 fl (80-99) 11/25/17 10:00 MCH 27.5 pg (27.0-31.0) 11/25/17 10:00 MCHC Differential 32.7 pg (28.0-36.0) 11/25/17 10:00 RDW 15.9 % (11.5-20.0) 11/25/17 10:00 Plt Count 256 Th/cmm (150-400) 11/25/17 10:00 MPV 8.5 fl 11/25/17 10:00 Neutrophils % 66.7 % (40.0-80.0) 11/25/17 10:00 Lymphocytes % 22.4 % (20.0-50.0) 11/25/17 10:00 Monocytes % 7.8 % (2.0-10.0) 11/25/17 10:00 Eosinophils % 2.9 % (0.0-5.0) 11/25/17 10:00 Basophils % 0.2 % (0.0-2.0) 11/25/17 10:00 Sodium 136 mEq/L (136-145) 11/10/17 16:37 Potassium 4.4 mEq/L (3.5-5.1) 11/10/17 16:37 Chloride 102 mEq/L (98-107) 11/10/17 16:37 Carbon Dioxide 27.6 mEq/L (21.0-31.0) 11/10/17 16:37 Anion Gap 10.8 (7.0-16.0) 11/10/17 16:37 BUN 18 mg/dL (7-25) 11/10/17 16:37 Creatinine 1.0 mg/dL (0.7-1.3) 11/10/17 16:37 Est GFR ( Amer) > 60.0 ml/min (>90) 11/10/17 16:37 Est GFR (Non-Af Amer) > 60.0 ml/min 11/10/17 16:37 BUN/Creatinine Ratio 18.0 11/10/17 16:37 Glucose 115 mg/dL (70-105) H 11/10/17 16:37 POC Glucose 86 MG/DL (70 - 105) 12/01/17 05:44 Hemoglobin A1c % 6.0 % (4.0-6.0) 11/10/17 16:37 Calcium 9.5 mg/dL (8.6-10.3) 11/10/17 16:37 Total Bilirubin 0.3 mg/dL (0.3-1.0) 11/10/17 16:37 AST 18 U/L (13-39) 11/10/17 16:37 ALT 11 U/L (7-52) 11/10/17 16:37 Alkaline Phosphatase 62 U/L (34-104) 11/10/17 16:37 Total Protein 6.7 gm/dL (6.0-8.3) 11/10/17 16:37 Albumin 4.2 gm/dL (4.2-5.5) 11/10/17 16:37 Globulin 2.5 gm/dL 11/10/17 16:37 Albumin/Globulin Ratio 1.7 (1.0-1.8) 11/10/17 16:37 Triglycerides 108 mg/dL (<150) 11/10/17 16:37 Cholesterol 157 mg/dL (<200) 11/10/17 16:37 LDL Cholesterol Direct 85 mg/dL (75-193) 11/10/17 16:37 HDL Cholesterol 58 mg/dL (23-92) 11/10/17 16:37 TSH 2.23 uIU/ml (0.34-5.60) 11/10/17 16:37 Urine Source CLEAN C 11/10/17 18:10 Urine Color YELLOW 11/10/17 18:10 Urine Clarity CLEAR (CLEAR) 11/10/17 18:10 Urine pH 7.5 (4.6 - 8.0) 11/10/17 18:10 Ur Specific [place] 1.015 (1.005-1.030) 11/10/17 18:10 Urine Protein NEGATIVE mg/dL (NEGATIVE) 11/10/17 18:10 Urine Glucose (UA) NEGATIVE mg/dL (NEGATIVE) 11/10/17 18:10 Urine Ketones NEGATIVE mg/dL (NEGATIVE) 11/10/17 18:10 Urine Blood NEGATIVE (NEGATIVE) 11/10/17 18:10 Urine Nitrate NEGATIVE (NEGATIVE) 11/10/17 18:10 Urine Bilirubin NEGATIVE (NEGATIVE) 11/10/17 18:10 Urine Urobilinogen 0.2 E.U./dL (0.2 - 1.0) 11/10/17 18:10 Ur Leukocyte Esterase NEGATIVE (NEGATIVE) 11/10/17 18:10 Urine RBC NONE SEEN /hpf (0-5) 11/10/17 18:10 Urine WBC NONE SEEN /hpf (0-5) 11/10/17 18:10 Ur Epithelial Cells NONE SEEN /lpf (FEW) 11/10/17 18:10 Urine Bacteria NONE SEEN /hpf (NONE SEEN) 11/10/17 18:10 Salicylates < 25.0 mg/L (30.0-100.0) L 11/10/17 16:37 Urine Opiates Screen NEGATIVE (NEGATIVE) 11/10/17 18:10 Urine Methadone Screen NEGATIVE (NEGATIVE) 11/10/17 18:10 Acetaminophen < 10.0 ug/mL (10.0-30.0) L 11/10/17 16:37 Ur Barbiturates Screen NEGATIVE (NEGATIVE) 11/10/17 18:10 Valproic Acid 71.0 ug/mL (50.0-100.0) 11/30/17 10:20 Ur Tricyclics Screen NEGATIVE (NEGATIVE) 11/10/17 18:10 Ur Phencyclidine Scrn NEGATIVE (NEGATIVE) 11/10/17 18:10 Amphetamines Screen NEGATIVE (NEGATIVE) 11/10/17 18:10 U Methamphetamines Scrn NEGATIVE (NEGATIVE) 11/10/17 18:10 U Benzodiazepines Scrn NEGATIVE (NEGATIVE) 11/10/17 18:10 U Cocaine Metab Screen NEGATIVE (NEGATIVE) 11/10/17 18:10 U Cannabinoids Screen NEGATIVE (NEGATIVE) 11/10/17 18:10 Ethyl Alcohol < 10 mg/dL (0-10) 11/10/17 16:37 RPR NONREACTIVE (NONREACTIVE) 11/10/17 16:37 - Physical Exam Vitals and I&O: Vital Signs Temp 97.2 F 12/01/17 14:58 Pulse 94 12/01/17 14:58 Resp 20 12/01/17 14:58 BP 94/63 12/01/17 14:58 Pulse Ox 95 12/01/17 14:58 Intake & Output 11/30/17 12/01/17 12/01/17 18:59 06:59 18:59 Intake Total 1200 120 Balance 1200 120 Intake: Oral 1200 120 Other: # Voids 3 3 # Bowel Movements 1 0 Active Medications: Current Medications Acetaminophen (Tylenol) 650 mg PO Q4HR PRN PRN Reason: Mild Pain / Temp above 100 Stop: 01/10/18 00:16 Al Hydrox/Mg Hydrox/Simethicone (Maalox) 30 ml PO Q4HR PRN PRN Reason: GI DISTRESS Stop: 01/10/18 00:16 Albuterol/Ipratropium (Duoneb Neb) 3 ml HHN Q8HRT PRN PRN Reason: Shortness of Breath Stop: 01/10/18 00:16 Bupropion HCl (Wellbutrin Xl) 300 mg PO DAILY JOEL PRN Reason: Protocol Stop: 01/27/18 11:34 Last Admin: 12/01/17 08:15 Dose: 300 mg Divalproex Sodium (Depakote Dr) 250 mg PO Q8HR JOEL PRN Reason: Protocol Stop: 01/10/18 04:59 Last Admin: 12/01/17 14:00 Dose: 250 mg Docusate Sodium (Colace) 100 mg PO BID JOEL Stop: 01/10/18 08:59 Last Admin: 12/01/17 17:33 Dose: 100 mg Insulin Aspart (Novolog Insulin Sliding Scale) 0 units SUBQ 0630 JOEL PRN Reason: Protocol Stop: 01/10/18 06:29 Last Admin: 12/01/17 05:55 Dose: Not Given Lorazepam (Ativan) 0.5 mg PO Q6H PRN PRN Reason: Agitation Stop: 01/27/18 14:57 Last Admin: 11/30/17 20:48 Dose: 0.5 mg Metoprolol Tartrate (Lopressor) 25 mg PO HS JOEL Stop: 01/10/18 20:59 Last Admin: 11/30/17 20:48 Dose: 25 mg Mirtazapine (Remeron) 30 mg PO HS JOEL PRN Reason: Protocol Stop: 01/20/18 20:59 Last Admin: 11/30/17 20:47 Dose: 30 mg Multivitamins/Vitamin C (Theragran) 1 tab PO DAILY JOEL Stop: 01/10/18 08:59 Last Admin: 12/01/17 08:15 Dose: 1 tab Ondansetron HCl (Zofran Odt) 4 mg PO Q4H PRN PRN Reason: Nausea / Vomiting Stop: 01/10/18 00:16 Pantoprazole Sodium (Protonix) 40 mg PO QDAC JOEL Stop: 01/10/18 07:29 Last Admin: 12/01/17 06:36 Dose: 40 mg Quetiapine Fumarate (Seroquel) 100 mg PO BID JOEL PRN Reason: Protocol Stop: 01/29/18 08:59 Last Admin: 12/01/17 17:33 Dose: 100 mg Simvastatin (Zocor) 20 mg PO HS JOEL PRN Reason: Protocol Stop: 01/10/18 20:59 Last Admin: 11/30/17 20:48 Dose: 20 mg General: demented HEENT: NC/AT, PERRLA, EOMI, anicteric sclerae, throat clear Neck: Supple, No JVD, No thyromegaly, No LAD Lungs: CTAB Abdomen: non-tender, non-distended Extremities: clear Neurological: no change - Procedures Procedures: Procedures Procedure Code Date GROUP PSYCHOTHERAPY 20038 07/16/15 GROUP PSYCHOTHERAPY GZHZZZZ 07/16/15 INDIVID PSYCHOTHERAP NEC 94.39 09/06/13 OTHER GROUP THERAPY 94.44 05/03/14 RECREATIONAL THERAPY 93.81 08/25/12 Internal Medicine Assmt/Plan - Assessment Assessment: 1.DM. 2.HTN. 3 HYPERLIPIDEMIA. 4.DEMENTIA. - Plan Plan: CONTINUE ON CURRENT MEDICATION AND DIET. Nutritional Asmnt/Malnutr-PDOC - Dietary Evaluation Malnutrition Findings (Please click <Entered> for more info): Nutritional Asmnt/Malnutrition Start: 11/15/17 14: 32 Text: Status: Complete Freq: Document 11/15/17 14:32 [email or web address] (Rec: 11/15/17 14:35 [email or web address]) Nutritional Asmnt/Malnutrition Patient General Information Nutritional Screening Moderate Risk Diagnosis psychosis NOS Pertinent Medical Hx/Surgical Hx DM, HTN, HLD, psychosis Subjective Information Pt confused and depressed. Eating 75-100% of meals. Current Diet Order/ Nutrition Support mechanical soft, chopped, CCHO , MAURA Patient / S.O Not Indicated Pertinent Medications insulin, remeron, MVI, protonix Pertinent Labs POC: 84-107, hgba1c: 6.0 Nutritional Hx/Data Height 1.57 m Height (Calculated Centimeters) 157.5 Current Weight (lbs) 68.039 kg Weight (Calculated Kilograms) 68.0 Weight (Calculated Grams) 07626.9 [place] Body Weight 118 lbs % [place] Body Weight 127 Body Mass Index (BMI) 27.4 Weight Status Overweight GI Symptoms GI Symptoms None Last BM 11/13 Difficult in: None Skin Integrity/Comment: intact Current %PO Good (75-100%) Estimated Nutritional Goals BEE in Kcals: Adj wt of IBW Calories/Kcals/Kg 25-30 Kcals Calculated 2800-5149 kcals Protein: Adj wt of IBW Protein g/k-1.2 Protein Calculated 68-82 g Fluid: ml 8449-8647 mL (1 ml/kcal) Nutritional Problem 1. Problem Problem n/a Etiology none Signs/Symptoms: none Intervention/Recommendation Comments 1. Continue mechanical soft, chopped, CCHO, MAURA diet as ordered Expected Outcomes/Goals Expected Outcomes/Goals Goal: PO intake >50% montior wts, labs, skin, PO intake
--- NOTE | 2017-12-02 02:55 | Progress Notes ---
DATE: 12/01/2017 SUBJECTIVE: Case was discussed with staff of the patient, reviewed records. The patient continues to report hearing voices. Continues to be unpredictable, impulsive, needing redirection. I changed him to Seroquel yesterday; however, it is too early to make any judgment. He is off the clozapine. It was not helping him anyway despite increasing the dose. I also added Wellbutrin to help him have more energy and so far no side effects with the medication. No sedation, no nausea, no extrapyramidal symptoms. His Depakote level was 71, which is within acceptable therapeutic range and also the patient is compliant with medications. We will continue the patient in group therapy, milieu therapy, and adjust medication as needed. JOB# [id number]
[2017-12-02] MEDS: INSULIN ASPART SLIDING SCALE 100 UNITS/ML UNIT SUBQ SCH (05:55)
[2017-12-02] MEDS: Pantoprazole 40 mg EC Tab PO SCH (06:51)
[2017-12-02] MEDS: buPROPion XL 150 mg T 24 H PO SCH (08:10)
[2017-12-02] MEDS: Multivitamin Tab PO SCH (08:10)
--- NOTE | 2017-12-02 21:52 | Progress Notes ---
DATE: 12/02/2017 Case was discussed with staff of the patient, reviewed records. The patient reports he continues to hear voices. He is not able to eat, continues to isolate himself. Continues to have poor insight, continues to need redirection. He tolerated the increase in Seroquel with no side effects and that was done over the last 2 days. He is currently on 100 mg twice a day. I will be increasing the dose to 125 mg twice a day and so far no side effects, no sedation, no nausea, no extrapyramidal symptoms. He used to be on a much higher dose of Seroquel in the past and tolerated it and no side effects and we will continue to work with the patient in group therapy, milieu therapy, and adjust the medications as needed. JOB# [id number]
--- NOTE | 2017-12-03 00:13 | Internal Medicine Prog Note ---
Internal Medicine Subjective - Subjective Service Date: 12/02/17 Patient seen and examined:: without staff Patient is:: awake, verbal, in bed, denies any new complaints Per staff patient has:: no adverse event (HE FEELS WELL) Internal Medicine Objective - Results Result Diagrams: 11/25/17 10:00 11/10/17 16:37 Recent Labs: Laboratory Last Values WBC 6.7 Th/cmm (4.8-10.8) 11/25/17 10:00 RBC 5.15 Mil/cmm (3.80-5.80) 11/25/17 10:00 Hgb 14.2 gm/dL (12-16) 11/25/17 10:00 Hct 43.3 % (41.0-60) 11/25/17 10:00 MCV 84.0 fl (80-99) 11/25/17 10:00 MCH 27.5 pg (27.0-31.0) 11/25/17 10:00 MCHC Differential 32.7 pg (28.0-36.0) 11/25/17 10:00 RDW 15.9 % (11.5-20.0) 11/25/17 10:00 Plt Count 256 Th/cmm (150-400) 11/25/17 10:00 MPV 8.5 fl 11/25/17 10:00 Neutrophils % 66.7 % (40.0-80.0) 11/25/17 10:00 Lymphocytes % 22.4 % (20.0-50.0) 11/25/17 10:00 Monocytes % 7.8 % (2.0-10.0) 11/25/17 10:00 Eosinophils % 2.9 % (0.0-5.0) 11/25/17 10:00 Basophils % 0.2 % (0.0-2.0) 11/25/17 10:00 Sodium 136 mEq/L (136-145) 11/10/17 16:37 Potassium 4.4 mEq/L (3.5-5.1) 11/10/17 16:37 Chloride 102 mEq/L (98-107) 11/10/17 16:37 Carbon Dioxide 27.6 mEq/L (21.0-31.0) 11/10/17 16:37 Anion Gap 10.8 (7.0-16.0) 11/10/17 16:37 BUN 18 mg/dL (7-25) 11/10/17 16:37 Creatinine 1.0 mg/dL (0.7-1.3) 11/10/17 16:37 Est GFR ( Amer) > 60.0 ml/min (>90) 11/10/17 16:37 Est GFR (Non-Af Amer) > 60.0 ml/min 11/10/17 16:37 BUN/Creatinine Ratio 18.0 11/10/17 16:37 Glucose 115 mg/dL (70-105) H 11/10/17 16:37 POC Glucose 74 MG/DL (70 - 105) 12/02/17 05:42 Hemoglobin A1c % 6.0 % (4.0-6.0) 11/10/17 16:37 Calcium 9.5 mg/dL (8.6-10.3) 11/10/17 16:37 Total Bilirubin 0.3 mg/dL (0.3-1.0) 11/10/17 16:37 AST 18 U/L (13-39) 11/10/17 16:37 ALT 11 U/L (7-52) 11/10/17 16:37 Alkaline Phosphatase 62 U/L (34-104) 11/10/17 16:37 Total Protein 6.7 gm/dL (6.0-8.3) 11/10/17 16:37 Albumin 4.2 gm/dL (4.2-5.5) 11/10/17 16:37 Globulin 2.5 gm/dL 11/10/17 16:37 Albumin/Globulin Ratio 1.7 (1.0-1.8) 11/10/17 16:37 Triglycerides 108 mg/dL (<150) 11/10/17 16:37 Cholesterol 157 mg/dL (<200) 11/10/17 16:37 LDL Cholesterol Direct 85 mg/dL (75-193) 11/10/17 16:37 HDL Cholesterol 58 mg/dL (23-92) 11/10/17 16:37 TSH 2.23 uIU/ml (0.34-5.60) 11/10/17 16:37 Urine Source CLEAN C 11/10/17 18:10 Urine Color YELLOW 11/10/17 18:10 Urine Clarity CLEAR (CLEAR) 11/10/17 18:10 Urine pH 7.5 (4.6 - 8.0) 11/10/17 18:10 Ur Specific [place] 1.015 (1.005-1.030) 11/10/17 18:10 Urine Protein NEGATIVE mg/dL (NEGATIVE) 11/10/17 18:10 Urine Glucose (UA) NEGATIVE mg/dL (NEGATIVE) 11/10/17 18:10 Urine Ketones NEGATIVE mg/dL (NEGATIVE) 11/10/17 18:10 Urine Blood NEGATIVE (NEGATIVE) 11/10/17 18:10 Urine Nitrate NEGATIVE (NEGATIVE) 11/10/17 18:10 Urine Bilirubin NEGATIVE (NEGATIVE) 11/10/17 18:10 Urine Urobilinogen 0.2 E.U./dL (0.2 - 1.0) 11/10/17 18:10 Ur Leukocyte Esterase NEGATIVE (NEGATIVE) 11/10/17 18:10 Urine RBC NONE SEEN /hpf (0-5) 11/10/17 18:10 Urine WBC NONE SEEN /hpf (0-5) 11/10/17 18:10 Ur Epithelial Cells NONE SEEN /lpf (FEW) 11/10/17 18:10 Urine Bacteria NONE SEEN /hpf (NONE SEEN) 11/10/17 18:10 Salicylates < 25.0 mg/L (30.0-100.0) L 11/10/17 16:37 Urine Opiates Screen NEGATIVE (NEGATIVE) 11/10/17 18:10 Urine Methadone Screen NEGATIVE (NEGATIVE) 11/10/17 18:10 Acetaminophen < 10.0 ug/mL (10.0-30.0) L 11/10/17 16:37 Ur Barbiturates Screen NEGATIVE (NEGATIVE) 11/10/17 18:10 Valproic Acid 71.0 ug/mL (50.0-100.0) 11/30/17 10:20 Ur Tricyclics Screen NEGATIVE (NEGATIVE) 11/10/17 18:10 Ur Phencyclidine Scrn NEGATIVE (NEGATIVE) 11/10/17 18:10 Amphetamines Screen NEGATIVE (NEGATIVE) 11/10/17 18:10 U Methamphetamines Scrn NEGATIVE (NEGATIVE) 11/10/17 18:10 U Benzodiazepines Scrn NEGATIVE (NEGATIVE) 11/10/17 18:10 U Cocaine Metab Screen NEGATIVE (NEGATIVE) 11/10/17 18:10 U Cannabinoids Screen NEGATIVE (NEGATIVE) 11/10/17 18:10 Ethyl Alcohol < 10 mg/dL (0-10) 11/10/17 16:37 RPR NONREACTIVE (NONREACTIVE) 11/10/17 16:37 - Physical Exam Vitals and I&O: Vital Signs Temp 97.2 F 12/02/17 15:06 Pulse 89 12/02/17 21:36 Resp 18 12/02/17 21:36 BP 108/70 12/02/17 21:15 Pulse Ox 97 12/02/17 21:36 Intake & Output 12/02/17 12/02/17 12/03/17 06:59 18:59 06:59 Intake Total 120 1200 Balance 120 1200 Intake: Oral 120 1200 Other: # Voids 3 3 # Bowel Movements 1 Active Medications: Current Medications Acetaminophen (Tylenol) 650 mg PO Q4HR PRN PRN Reason: Mild Pain / Temp above 100 Stop: 01/10/18 00:16 Al Hydrox/Mg Hydrox/Simethicone (Maalox) 30 ml PO Q4HR PRN PRN Reason: GI DISTRESS Stop: 01/10/18 00:16 Albuterol/Ipratropium (Duoneb Neb) 3 ml HHN Q8HRT PRN PRN Reason: Shortness of Breath Stop: 01/10/18 00:16 Bupropion HCl (Wellbutrin Xl) 300 mg PO DAILY JOEL PRN Reason: Protocol Stop: 01/27/18 11:34 Last Admin: 12/02/17 08:10 Dose: 300 mg Divalproex Sodium (Depakote Dr) 250 mg PO Q8HR JOEL PRN Reason: Protocol Stop: 01/10/18 04:59 Last Admin: 12/02/17 21:15 Dose: 250 mg Docusate Sodium (Colace) 100 mg PO BID JOEL Stop: 01/10/18 08:59 Last Admin: 12/02/17 17:20 Dose: 100 mg Insulin Aspart (Novolog Insulin Sliding Scale) 0 units SUBQ 0630 JOEL PRN Reason: Protocol Stop: 01/10/18 06:29 Last Admin: 12/02/17 05:55 Dose: Not Given Lorazepam (Ativan) 0.5 mg PO Q6H PRN PRN Reason: Agitation Stop: 01/27/18 14:57 Last Admin: 12/02/17 21:15 Dose: 0.5 mg Metoprolol Tartrate (Lopressor) 25 mg PO HS JOEL Stop: 01/10/18 20:59 Last Admin: 12/02/17 21:15 Dose: 25 mg Mirtazapine (Remeron) 30 mg PO HS [facility] PRN Reason: Protocol Stop: 01/20/18 20:59 Last Admin: 12/02/17 21:15 Dose: 30 mg Multivitamins/Vitamin C (Theragran) 1 tab PO DAILY JOEL Stop: 01/10/18 08:59 Last Admin: 12/02/17 08:10 Dose: 1 tab Ondansetron HCl (Zofran Odt) 4 mg PO Q4H PRN PRN Reason: Nausea / Vomiting Stop: 01/10/18 00:16 Pantoprazole Sodium (Protonix) 40 mg PO QDAC [facility] Stop: 01/10/18 07:29 Last Admin: 12/02/17 06:51 Dose: 40 mg Quetiapine Fumarate 100 mg/ (Quetiapine Fumarate 25 mg) 125 mg PO BID [facility] Stop: 01/31/18 16:59 Last Admin: 12/02/17 17:20 Dose: 125 mg Simvastatin (Zocor) 20 mg PO HS [facility] PRN Reason: Protocol Stop: 01/10/18 20:59 Last Admin: 12/02/17 21:15 Dose: 20 mg General: demented HEENT: NC/AT, PERRLA, EOMI, anicteric sclerae, throat clear Neck: Supple, No JVD, No thyromegaly, No LAD Lungs: CTAB Abdomen: non-tender, non-distended Extremities: clear Neurological: no change - Procedures Procedures: Procedures Procedure Code Date GROUP PSYCHOTHERAPY 22337 07/16/15 GROUP PSYCHOTHERAPY GZHZZZZ 07/16/15 INDIVID PSYCHOTHERAP NEC 94.39 09/06/13 OTHER GROUP THERAPY 94.44 05/03/14 RECREATIONAL THERAPY 93.81 08/25/12 Internal Medicine Assmt/Plan - Assessment Assessment: 1.DM. 2.HTN. 3 HYPERLIPIDEMIA. 4.DEMENTIA. - Plan Plan: CONTINUE ON CURRENT MEDICATION AND DIET. Nutritional Asmnt/Malnutr-PDOC - Dietary Evaluation Malnutrition Findings (Please click <Entered> for more info): Nutritional Asmnt/Malnutrition Start: 11/15/17 14: 32 Text: Status: Complete Freq: Document 11/15/17 14:32 [email or web address] (Rec: 11/15/17 14:35 [email or web address]) Nutritional Asmnt/Malnutrition Patient General Information Nutritional Screening Moderate Risk Diagnosis psychosis NOS Pertinent Medical Hx/Surgical Hx DM, HTN, HLD, psychosis Subjective Information Pt confused and depressed. Eating 75-100% of meals. Current Diet Order/ Nutrition Support mechanical soft, chopped, CCHO , MAURA Patient / S.O Not Indicated Pertinent Medications insulin, remeron, MVI, protonix Pertinent Labs POC: 84-107, hgba1c: 6.0 Nutritional Hx/Data Height 1.57 m Height (Calculated Centimeters) 157.5 Current Weight (lbs) 68.039 kg Weight (Calculated Kilograms) 68.0 Weight (Calculated Grams) 83050.9 [place] Body Weight 118 lbs % [place] Body Weight 127 Body Mass Index (BMI) 27.4 Weight Status Overweight GI Symptoms GI Symptoms None Last BM 11/13 Difficult in: None Skin Integrity/Comment: intact Current %PO Good (75-100%) Estimated Nutritional Goals BEE in Kcals: Adj wt of IBW Calories/Kcals/Kg 25-30 Kcals Calculated 8980-6779 kcals Protein: Adj wt of IBW Protein g/k-1.2 Protein Calculated 68-82 g Fluid: ml 6557-3892 mL (1 ml/kcal) Nutritional Problem 1. Problem Problem n/a Etiology none Signs/Symptoms: none Intervention/Recommendation Comments 1. Continue mechanical soft, chopped, CCHO, MAURA diet as ordered Expected Outcomes/Goals Expected Outcomes/Goals Goal: PO intake >50% montior wts, labs, skin, PO intake
[2017-12-03] MEDS: INSULIN ASPART SLIDING SCALE 100 UNITS/ML UNIT SUBQ SCH (05:38)
[2017-12-03] MEDS: Pantoprazole 40 mg EC Tab PO SCH (06:44)
[2017-12-03] MEDS: buPROPion XL 150 mg T 24 H PO SCH (08:51)
[2017-12-03] MEDS: Multivitamin Tab PO SCH (08:51)
--- NOTE | 2017-12-03 15:15 | General Progress Note ---
Subjective - Review of Systems Service Date: 12/03/17 Subjective: resting comfortably no distress Objective - Results Result Diagrams: 11/25/17 10:00 11/10/17 16:37 Recent Labs: Laboratory Last Values WBC 6.7 Th/cmm (4.8-10.8) 11/25/17 10:00 RBC 5.15 Mil/cmm (3.80-5.80) 11/25/17 10:00 Hgb 14.2 gm/dL (12-16) 11/25/17 10:00 Hct 43.3 % (41.0-60) 11/25/17 10:00 MCV 84.0 fl (80-99) 11/25/17 10:00 MCH 27.5 pg (27.0-31.0) 11/25/17 10:00 MCHC Differential 32.7 pg (28.0-36.0) 11/25/17 10:00 RDW 15.9 % (11.5-20.0) 11/25/17 10:00 Plt Count 256 Th/cmm (150-400) 11/25/17 10:00 MPV 8.5 fl 11/25/17 10:00 Neutrophils % 66.7 % (40.0-80.0) 11/25/17 10:00 Lymphocytes % 22.4 % (20.0-50.0) 11/25/17 10:00 Monocytes % 7.8 % (2.0-10.0) 11/25/17 10:00 Eosinophils % 2.9 % (0.0-5.0) 11/25/17 10:00 Basophils % 0.2 % (0.0-2.0) 11/25/17 10:00 Sodium 136 mEq/L (136-145) 11/10/17 16:37 Potassium 4.4 mEq/L (3.5-5.1) 11/10/17 16:37 Chloride 102 mEq/L (98-107) 11/10/17 16:37 Carbon Dioxide 27.6 mEq/L (21.0-31.0) 11/10/17 16:37 Anion Gap 10.8 (7.0-16.0) 11/10/17 16:37 BUN 18 mg/dL (7-25) 11/10/17 16:37 Creatinine 1.0 mg/dL (0.7-1.3) 11/10/17 16:37 Est GFR ( Amer) > 60.0 ml/min (>90) 11/10/17 16:37 Est GFR (Non-Af Amer) > 60.0 ml/min 11/10/17 16:37 BUN/Creatinine Ratio 18.0 11/10/17 16:37 Glucose 115 mg/dL (70-105) H 11/10/17 16:37 POC Glucose 85 MG/DL (70 - 105) 12/03/17 05:29 Hemoglobin A1c % 6.0 % (4.0-6.0) 11/10/17 16:37 Calcium 9.5 mg/dL (8.6-10.3) 11/10/17 16:37 Total Bilirubin 0.3 mg/dL (0.3-1.0) 11/10/17 16:37 AST 18 U/L (13-39) 11/10/17 16:37 ALT 11 U/L (7-52) 11/10/17 16:37 Alkaline Phosphatase 62 U/L (34-104) 11/10/17 16:37 Total Protein 6.7 gm/dL (6.0-8.3) 11/10/17 16:37 Albumin 4.2 gm/dL (4.2-5.5) 11/10/17 16:37 Globulin 2.5 gm/dL 11/10/17 16:37 Albumin/Globulin Ratio 1.7 (1.0-1.8) 11/10/17 16:37 Triglycerides 108 mg/dL (<150) 11/10/17 16:37 Cholesterol 157 mg/dL (<200) 11/10/17 16:37 LDL Cholesterol Direct 85 mg/dL (75-193) 11/10/17 16:37 HDL Cholesterol 58 mg/dL (23-92) 11/10/17 16:37 TSH 2.23 uIU/ml (0.34-5.60) 11/10/17 16:37 Urine Source CLEAN C 11/10/17 18:10 Urine Color YELLOW 11/10/17 18:10 Urine Clarity CLEAR (CLEAR) 11/10/17 18:10 Urine pH 7.5 (4.6 - 8.0) 11/10/17 18:10 Ur Specific [place] 1.015 (1.005-1.030) 11/10/17 18:10 Urine Protein NEGATIVE mg/dL (NEGATIVE) 11/10/17 18:10 Urine Glucose (UA) NEGATIVE mg/dL (NEGATIVE) 11/10/17 18:10 Urine Ketones NEGATIVE mg/dL (NEGATIVE) 11/10/17 18:10 Urine Blood NEGATIVE (NEGATIVE) 11/10/17 18:10 Urine Nitrate NEGATIVE (NEGATIVE) 11/10/17 18:10 Urine Bilirubin NEGATIVE (NEGATIVE) 11/10/17 18:10 Urine Urobilinogen 0.2 E.U./dL (0.2 - 1.0) 11/10/17 18:10 Ur Leukocyte Esterase NEGATIVE (NEGATIVE) 11/10/17 18:10 Urine RBC NONE SEEN /hpf (0-5) 11/10/17 18:10 Urine WBC NONE SEEN /hpf (0-5) 11/10/17 18:10 Ur Epithelial Cells NONE SEEN /lpf (FEW) 11/10/17 18:10 Urine Bacteria NONE SEEN /hpf (NONE SEEN) 11/10/17 18:10 Salicylates < 25.0 mg/L (30.0-100.0) L 11/10/17 16:37 Urine Opiates Screen NEGATIVE (NEGATIVE) 11/10/17 18:10 Urine Methadone Screen NEGATIVE (NEGATIVE) 11/10/17 18:10 Acetaminophen < 10.0 ug/mL (10.0-30.0) L 11/10/17 16:37 Ur Barbiturates Screen NEGATIVE (NEGATIVE) 11/10/17 18:10 Valproic Acid 71.0 ug/mL (50.0-100.0) 11/30/17 10:20 Ur Tricyclics Screen NEGATIVE (NEGATIVE) 11/10/17 18:10 Ur Phencyclidine Scrn NEGATIVE (NEGATIVE) 11/10/17 18:10 Amphetamines Screen NEGATIVE (NEGATIVE) 11/10/17 18:10 U Methamphetamines Scrn NEGATIVE (NEGATIVE) 11/10/17 18:10 U Benzodiazepines Scrn NEGATIVE (NEGATIVE) 11/10/17 18:10 U Cocaine Metab Screen NEGATIVE (NEGATIVE) 11/10/17 18:10 U Cannabinoids Screen NEGATIVE (NEGATIVE) 11/10/17 18:10 Ethyl Alcohol < 10 mg/dL (0-10) 11/10/17 16:37 RPR NONREACTIVE (NONREACTIVE) 11/10/17 16:37 - Physical Exam Vitals and I&O: Vital Signs Temp 97.2 F 12/02/17 15:06 Pulse 86 12/03/17 07:00 Resp 12 12/03/17 07:00 BP 108/70 12/02/17 21:15 Pulse Ox 98 12/03/17 07:00 Intake & Output 12/02/17 12/03/17 12/03/17 18:59 06:59 18:59 Intake Total 1200 Balance 1200 Intake: Oral 1200 Other: # Voids 3 # Bowel Movements 1 Active Medications: Current Medications Acetaminophen (Tylenol) 650 mg PO Q4HR PRN PRN Reason: Mild Pain / Temp above 100 Stop: 01/10/18 00:16 Al Hydrox/Mg Hydrox/Simethicone (Maalox) 30 ml PO Q4HR PRN PRN Reason: GI DISTRESS Stop: 01/10/18 00:16 Albuterol/Ipratropium (Duoneb Neb) 3 ml HHN Q8HRT PRN PRN Reason: Shortness of Breath Stop: 01/10/18 00:16 Bupropion HCl (Wellbutrin Xl) 300 mg PO DAILY JOEL PRN Reason: Protocol Stop: 01/27/18 11:34 Last Admin: 12/03/17 08:51 Dose: 300 mg Divalproex Sodium (Depakote Dr) 250 mg PO Q8HR JOEL PRN Reason: Protocol Stop: 01/10/18 04:59 Last Admin: 12/03/17 12:16 Dose: 250 mg Docusate Sodium (Colace) 100 mg PO BID [facility] Stop: 01/10/18 08:59 Last Admin: 12/03/17 08:51 Dose: 100 mg Insulin Aspart (Novolog Insulin Sliding Scale) 0 units SUBQ 0630 JOEL PRN Reason: Protocol Stop: 01/10/18 06:29 Last Admin: 12/03/17 05:38 Dose: Not Given Lorazepam (Ativan) 0.5 mg PO Q6H PRN PRN Reason: Agitation Stop: 01/27/18 14:57 Last Admin: 12/03/17 08:51 Dose: 0.5 mg Metoprolol Tartrate (Lopressor) 25 mg PO HS [facility] Stop: 01/10/18 20:59 Last Admin: 12/02/17 21:15 Dose: 25 mg Mirtazapine (Remeron) 30 mg PO HS JOEL PRN Reason: Protocol Stop: 01/20/18 20:59 Last Admin: 12/02/17 21:15 Dose: 30 mg Multivitamins/Vitamin C (Theragran) 1 tab PO DAILY JOEL Stop: 01/10/18 08:59 Last Admin: 12/03/17 08:51 Dose: 1 tab Ondansetron HCl (Zofran Odt) 4 mg PO Q4H PRN PRN Reason: Nausea / Vomiting Stop: 01/10/18 00:16 Pantoprazole Sodium (Protonix) 40 mg PO QDAC JOEL Stop: 01/10/18 07:29 Last Admin: 12/03/17 06:44 Dose: 40 mg Quetiapine Fumarate (Seroquel) 150 mg PO BID [facility] Stop: 02/01/18 12:04 Simvastatin (Zocor) 20 mg PO HS JOEL PRN Reason: Protocol Stop: 01/10/18 20:59 Last Admin: 12/02/17 21:15 Dose: 20 mg General: No acute distress HEENT: Atraumatic, PERRLA, EOMI Neck: Supple, JVD Cardiovascular: Regular rate, Normal S1, Normal S2 Lungs: Clear to auscultation Abdomen: Bowel sounds, Soft - Procedures Procedures: Procedures Procedure Code Date GROUP PSYCHOTHERAPY 55893 07/16/15 GROUP PSYCHOTHERAPY GZHZZZZ 07/16/15 INDIVID PSYCHOTHERAP NEC 94.39 09/06/13 OTHER GROUP THERAPY 94.44 05/03/14 RECREATIONAL THERAPY 93.81 08/25/12 Assessment/Plan - Assessment Assessment: 1.DM. 2.HTN. 3 HYPERLIPIDEMIA. 4.DEMENTIA. - Plan Plan: cont current treatment Nutritional Asmnt/Malnutr-PDOC - Dietary Evaluation Malnutrition Findings (Please click <Entered> for more info): Nutritional Asmnt/Malnutrition Start: 11/15/17 14: 32 Text: Status: Complete Freq: Document 11/15/17 14:32 [email or web address] (Rec: 11/15/17 14:35 [email or web address]) Nutritional Asmnt/Malnutrition Patient General Information Nutritional Screening Moderate Risk Diagnosis psychosis NOS Pertinent Medical Hx/Surgical Hx DM, HTN, HLD, psychosis Subjective Information Pt confused and depressed. Eating 75-100% of meals. Current Diet Order/ Nutrition Support mechanical soft, chopped, CCHO , MAURA Patient / S.O Not Indicated Pertinent Medications insulin, remeron, MVI, protonix Pertinent Labs POC: 84-107, hgba1c: 6.0 Nutritional Hx/Data Height 1.57 m Height (Calculated Centimeters) 157.5 Current Weight (lbs) 68.039 kg Weight (Calculated Kilograms) 68.0 Weight (Calculated Grams) 71678.9 [place] Body Weight 118 lbs % [place] Body Weight 127 Body Mass Index (BMI) 27.4 Weight Status Overweight GI Symptoms GI Symptoms None Last BM 11/13 Difficult in: None Skin Integrity/Comment: intact Current %PO Good (75-100%) Estimated Nutritional Goals BEE in Kcals: Adj wt of IBW Calories/Kcals/Kg 25-30 Kcals Calculated 2371-2562 kcals Protein: Adj wt of IBW Protein g/k-1.2 Protein Calculated 68-82 g Fluid: ml 1973-8315 mL (1 ml/kcal) Nutritional Problem 1. Problem Problem n/a Etiology none Signs/Symptoms: none Intervention/Recommendation Comments 1. Continue mechanical soft, chopped, CCHO, MAURA diet as ordered Expected Outcomes/Goals Expected Outcomes/Goals Goal: PO intake >50% montior wts, labs, skin, PO intake
--- NOTE | 2017-12-03 16:58 | Progress Notes ---
DATE: 12/03/2017 Case was discussed with staff of the patient, reviewed records. The patient continues to hear voices, continues to be restless, irritable, continues to have poor insight, continues to be unable to make safe plan for self-care. He wants medication change; however, just I told him that the Seroquel was only change yesterday and so I will be increasing the dose to 150 mg twice a day to help with his psychotic symptoms and so far no side effects, no sedation, no nausea and no extrapyramidal symptoms. The patient actually since the discontinuation of Clozaril, he has been more up and about going to the groups and activities, more visible in the unit. ____ also I added for him and Wellbutrin increased to 300 mg in the morning and he seems to be showing some progress; however, still not ready to go because of the hallucinations, they are not command hallucination, may tell him all kinds of things and they bother him. We will continue to work with the patient in group therapy, milieu therapy and adjust medications. JOB# [id number]
[2017-12-04] MEDS: INSULIN ASPART SLIDING SCALE 100 UNITS/ML UNIT SUBQ SCH (06:31)
[2017-12-04] MEDS: Pantoprazole 40 mg EC Tab PO SCH (06:32)
--- NOTE | 2017-12-04 08:20 | General Progress Note ---
Subjective - Review of Systems Service Date: 12/04/17 Subjective: resting comfortably no distress Objective - Results Result Diagrams: 11/25/17 10:00 11/10/17 16:37 Recent Labs: Laboratory Last Values WBC 6.7 Th/cmm (4.8-10.8) 11/25/17 10:00 RBC 5.15 Mil/cmm (3.80-5.80) 11/25/17 10:00 Hgb 14.2 gm/dL (12-16) 11/25/17 10:00 Hct 43.3 % (41.0-60) 11/25/17 10:00 MCV 84.0 fl (80-99) 11/25/17 10:00 MCH 27.5 pg (27.0-31.0) 11/25/17 10:00 MCHC Differential 32.7 pg (28.0-36.0) 11/25/17 10:00 RDW 15.9 % (11.5-20.0) 11/25/17 10:00 Plt Count 256 Th/cmm (150-400) 11/25/17 10:00 MPV 8.5 fl 11/25/17 10:00 Neutrophils % 66.7 % (40.0-80.0) 11/25/17 10:00 Lymphocytes % 22.4 % (20.0-50.0) 11/25/17 10:00 Monocytes % 7.8 % (2.0-10.0) 11/25/17 10:00 Eosinophils % 2.9 % (0.0-5.0) 11/25/17 10:00 Basophils % 0.2 % (0.0-2.0) 11/25/17 10:00 Sodium 136 mEq/L (136-145) 11/10/17 16:37 Potassium 4.4 mEq/L (3.5-5.1) 11/10/17 16:37 Chloride 102 mEq/L (98-107) 11/10/17 16:37 Carbon Dioxide 27.6 mEq/L (21.0-31.0) 11/10/17 16:37 Anion Gap 10.8 (7.0-16.0) 11/10/17 16:37 BUN 18 mg/dL (7-25) 11/10/17 16:37 Creatinine 1.0 mg/dL (0.7-1.3) 11/10/17 16:37 Est GFR ( Amer) > 60.0 ml/min (>90) 11/10/17 16:37 Est GFR (Non-Af Amer) > 60.0 ml/min 11/10/17 16:37 BUN/Creatinine Ratio 18.0 11/10/17 16:37 Glucose 115 mg/dL (70-105) H 11/10/17 16:37 POC Glucose 74 MG/DL (70 - 105) 12/04/17 06:31 Hemoglobin A1c % 6.0 % (4.0-6.0) 11/10/17 16:37 Calcium 9.5 mg/dL (8.6-10.3) 11/10/17 16:37 Total Bilirubin 0.3 mg/dL (0.3-1.0) 11/10/17 16:37 AST 18 U/L (13-39) 11/10/17 16:37 ALT 11 U/L (7-52) 11/10/17 16:37 Alkaline Phosphatase 62 U/L (34-104) 11/10/17 16:37 Total Protein 6.7 gm/dL (6.0-8.3) 11/10/17 16:37 Albumin 4.2 gm/dL (4.2-5.5) 11/10/17 16:37 Globulin 2.5 gm/dL 11/10/17 16:37 Albumin/Globulin Ratio 1.7 (1.0-1.8) 11/10/17 16:37 Triglycerides 108 mg/dL (<150) 11/10/17 16:37 Cholesterol 157 mg/dL (<200) 11/10/17 16:37 LDL Cholesterol Direct 85 mg/dL (75-193) 11/10/17 16:37 HDL Cholesterol 58 mg/dL (23-92) 11/10/17 16:37 TSH 2.23 uIU/ml (0.34-5.60) 11/10/17 16:37 Urine Source CLEAN C 11/10/17 18:10 Urine Color YELLOW 11/10/17 18:10 Urine Clarity CLEAR (CLEAR) 11/10/17 18:10 Urine pH 7.5 (4.6 - 8.0) 11/10/17 18:10 Ur Specific [place] 1.015 (1.005-1.030) 11/10/17 18:10 Urine Protein NEGATIVE mg/dL (NEGATIVE) 11/10/17 18:10 Urine Glucose (UA) NEGATIVE mg/dL (NEGATIVE) 11/10/17 18:10 Urine Ketones NEGATIVE mg/dL (NEGATIVE) 11/10/17 18:10 Urine Blood NEGATIVE (NEGATIVE) 11/10/17 18:10 Urine Nitrate NEGATIVE (NEGATIVE) 11/10/17 18:10 Urine Bilirubin NEGATIVE (NEGATIVE) 11/10/17 18:10 Urine Urobilinogen 0.2 E.U./dL (0.2 - 1.0) 11/10/17 18:10 Ur Leukocyte Esterase NEGATIVE (NEGATIVE) 11/10/17 18:10 Urine RBC NONE SEEN /hpf (0-5) 11/10/17 18:10 Urine WBC NONE SEEN /hpf (0-5) 11/10/17 18:10 Ur Epithelial Cells NONE SEEN /lpf (FEW) 11/10/17 18:10 Urine Bacteria NONE SEEN /hpf (NONE SEEN) 11/10/17 18:10 Salicylates < 25.0 mg/L (30.0-100.0) L 11/10/17 16:37 Urine Opiates Screen NEGATIVE (NEGATIVE) 11/10/17 18:10 Urine Methadone Screen NEGATIVE (NEGATIVE) 11/10/17 18:10 Acetaminophen < 10.0 ug/mL (10.0-30.0) L 11/10/17 16:37 Ur Barbiturates Screen NEGATIVE (NEGATIVE) 11/10/17 18:10 Valproic Acid 71.0 ug/mL (50.0-100.0) 11/30/17 10:20 Ur Tricyclics Screen NEGATIVE (NEGATIVE) 11/10/17 18:10 Ur Phencyclidine Scrn NEGATIVE (NEGATIVE) 11/10/17 18:10 Amphetamines Screen NEGATIVE (NEGATIVE) 11/10/17 18:10 U Methamphetamines Scrn NEGATIVE (NEGATIVE) 11/10/17 18:10 U Benzodiazepines Scrn NEGATIVE (NEGATIVE) 11/10/17 18:10 U Cocaine Metab Screen NEGATIVE (NEGATIVE) 11/10/17 18:10 U Cannabinoids Screen NEGATIVE (NEGATIVE) 11/10/17 18:10 Ethyl Alcohol < 10 mg/dL (0-10) 11/10/17 16:37 RPR NONREACTIVE (NONREACTIVE) 11/10/17 16:37 - Physical Exam Vitals and I&O: Vital Signs Temp 98.4 F 12/04/17 06:26 Pulse 76 12/04/17 06:26 Resp 18 12/04/17 06:26 BP 112/78 12/04/17 06:26 Pulse Ox 99 12/04/17 06:26 Intake & Output 12/03/17 12/04/17 12/04/17 18:59 06:59 18:59 Intake Total 1200 Balance 1200 Intake: Oral 1200 Other: # Voids 3 # Bowel Movements 1 Active Medications: Current Medications Acetaminophen (Tylenol) 650 mg PO Q4HR PRN PRN Reason: Mild Pain / Temp above 100 Stop: 01/10/18 00:16 Al Hydrox/Mg Hydrox/Simethicone (Maalox) 30 ml PO Q4HR PRN PRN Reason: GI DISTRESS Stop: 01/10/18 00:16 Albuterol/Ipratropium (Duoneb Neb) 3 ml HHN Q8HRT PRN PRN Reason: Shortness of Breath Stop: 01/10/18 00:16 Bupropion HCl (Wellbutrin Xl) 300 mg PO DAILY JOEL PRN Reason: Protocol Stop: 01/27/18 11:34 Last Admin: 12/03/17 08:51 Dose: 300 mg Divalproex Sodium (Depakote Dr) 250 mg PO Q8HR JOEL PRN Reason: Protocol Stop: 01/10/18 04:59 Last Admin: 12/04/17 05:05 Dose: 250 mg Docusate Sodium (Colace) 100 mg PO BID [facility] Stop: 01/10/18 08:59 Last Admin: 12/03/17 17:22 Dose: 100 mg Insulin Aspart (Novolog Insulin Sliding Scale) 0 units SUBQ 0630 JOEL PRN Reason: Protocol Stop: 01/10/18 06:29 Last Admin: 12/04/17 06:31 Dose: Not Given Lorazepam (Ativan) 0.5 mg PO Q6H PRN PRN Reason: Agitation Stop: 01/27/18 14:57 Last Admin: 12/03/17 08:51 Dose: 0.5 mg Metoprolol Tartrate (Lopressor) 25 mg PO [facility] Stop: 01/10/18 20:59 Last Admin: 12/03/17 21:35 Dose: 25 mg Mirtazapine (Remeron) 30 mg PO HS JOEL PRN Reason: Protocol Stop: 01/20/18 20:59 Last Admin: 12/03/17 21:35 Dose: 30 mg Multivitamins/Vitamin C (Theragran) 1 tab PO DAILY JOEL Stop: 01/10/18 08:59 Last Admin: 12/03/17 08:51 Dose: 1 tab Ondansetron HCl (Zofran Odt) 4 mg PO Q4H PRN PRN Reason: Nausea / Vomiting Stop: 01/10/18 00:16 Pantoprazole Sodium (Protonix) 40 mg PO QDAC JOEL Stop: 01/10/18 07:29 Last Admin: 12/04/17 06:32 Dose: 40 mg Quetiapine Fumarate (Seroquel) 150 mg PO BID JOEL Stop: 02/01/18 12:04 Last Admin: 12/03/17 17:21 Dose: 150 mg Simvastatin (Zocor) 20 mg PO HS JOEL PRN Reason: Protocol Stop: 01/10/18 20:59 Last Admin: 12/03/17 21:35 Dose: 20 mg General: No acute distress HEENT: Atraumatic, PERRLA, EOMI Neck: Supple, JVD Cardiovascular: Regular rate, Normal S1, Normal S2 Lungs: Clear to auscultation Abdomen: Bowel sounds, Soft - Procedures Procedures: Procedures Procedure Code Date GROUP PSYCHOTHERAPY 24958 07/16/15 GROUP PSYCHOTHERAPY GZHZZZZ 07/16/15 INDIVID PSYCHOTHERAP NEC 94.39 09/06/13 OTHER GROUP THERAPY 94.44 05/03/14 RECREATIONAL THERAPY 93.81 08/25/12 Assessment/Plan - Assessment Assessment: 1.DM. 2.HTN. 3 HYPERLIPIDEMIA. 4.DEMENTIA. - Plan Plan: cont current treatment Nutritional Asmnt/Malnutr-PDOC - Dietary Evaluation Malnutrition Findings (Please click <Entered> for more info): Nutritional Asmnt/Malnutrition Start: 11/15/17 14: 32 Text: Status: Complete Freq: Document 11/15/17 14:32 [email or web address] (Rec: 11/15/17 14:35 [email or web address]) Nutritional Asmnt/Malnutrition Patient General Information Nutritional Screening Moderate Risk Diagnosis psychosis NOS Pertinent Medical Hx/Surgical Hx DM, HTN, HLD, psychosis Subjective Information Pt confused and depressed. Eating 75-100% of meals. Current Diet Order/ Nutrition Support mechanical soft, chopped, CCHO , MAURA Patient / S.O Not Indicated Pertinent Medications insulin, remeron, MVI, protonix Pertinent Labs POC: 84-107, hgba1c: 6.0 Nutritional Hx/Data Height 1.57 m Height (Calculated Centimeters) 157.5 Current Weight (lbs) 68.039 kg Weight (Calculated Kilograms) 68.0 Weight (Calculated Grams) 08218.9 [place] Body Weight 118 lbs % [place] Body Weight 127 Body Mass Index (BMI) 27.4 Weight Status Overweight GI Symptoms GI Symptoms None Last BM 11/13 Difficult in: None Skin Integrity/Comment: intact Current %PO Good (75-100%) Estimated Nutritional Goals BEE in Kcals: Adj wt of IBW Calories/Kcals/Kg 25-30 Kcals Calculated 2570-9247 kcals Protein: Adj wt of IBW Protein g/k-1.2 Protein Calculated 68-82 g Fluid: ml 7260-5703 mL (1 ml/kcal) Nutritional Problem 1. Problem Problem n/a Etiology none Signs/Symptoms: none Intervention/Recommendation Comments 1. Continue mechanical soft, chopped, CCHO, MAURA diet as ordered Expected Outcomes/Goals Expected Outcomes/Goals Goal: PO intake >50% montior wts, labs, skin, PO intake
[2017-12-04] MEDS: Multivitamin Tab PO SCH (08:27)
[2017-12-04] MEDS: buPROPion XL 150 mg T 24 H PO SCH (08:27)
--- NOTE | 2017-12-04 22:30 | Progress Notes ---
DATE: 12/04/2017 Case was discussed with staff of the patient and reviewed records. The patient reports he only slept 2-1/2 hours last night, continues to hear voices, continues to have poor insight, continues to be easily agitated. He is compliant with the medication with no side effects, no sedation, no nausea, no extrapyramidal symptoms. I will be decreasing his Remeron to help him with sleep to 15 mg at bedtime as it tends to help him sleep better with a smaller dose. I will be increasing his Seroquel to 200 mg twice a day. We may have to add another antipsychotic with it if he continues to not do well; however, give it a chance at a higher dose. The patient is willing to contract for safety. He denies any current intent to harm himself or anybody. We will continue to work with the patient in group therapy, milieu therapy, adjust the medication as needed. JOB# [id number]
[2017-12-05] MEDS: INSULIN ASPART SLIDING SCALE 100 UNITS/ML UNIT SUBQ SCH (06:24)
[2017-12-05] MEDS: Pantoprazole 40 mg EC Tab PO SCH (06:44)
[2017-12-05] MEDS: buPROPion XL 150 mg T 24 H PO SCH (08:27)
[2017-12-05] MEDS: Multivitamin Tab PO SCH (08:27)
--- NOTE | 2017-12-05 22:25 | Progress Notes ---
DATE: 12/05/2017 SUBJECTIVE: Case was discussed with the staff of the patient and reviewed the records. The patient continues to report hearing voices. He reported the medications are not working. He could not sleep well last night. He continues to be easily overwhelmed, agitated, so I will be replacing the Seroquel since this has not been working despite he has been on it for a while now. I will be trying Zyprexa. He said he never tried Zyprexa before, maybe that would work as Clozaril did not work and Seroquel is no longer working. I will be initiating Zyprexa on this patient and discussed side effects, also initiated the patient on Ambien yesterday. I will continue to work the patient in group therapy, milieu therapy, adjust the medication as needed. Lab work showed blood sugar within normal limits. JOB# [id number]
--- NOTE | 2017-12-05 23:15 | Internal Medicine Prog Note ---
Internal Medicine Subjective - Subjective Service Date: 12/05/17 Patient seen and examined:: without staff Patient is:: awake, verbal, in bed, denies any new complaints Per staff patient has:: no adverse event (HE FEELS WELL) Internal Medicine Objective - Results Result Diagrams: 11/25/17 10:00 11/10/17 16:37 Recent Labs: Laboratory Last Values WBC 6.7 Th/cmm (4.8-10.8) 11/25/17 10:00 RBC 5.15 Mil/cmm (3.80-5.80) 11/25/17 10:00 Hgb 14.2 gm/dL (12-16) 11/25/17 10:00 Hct 43.3 % (41.0-60) 11/25/17 10:00 MCV 84.0 fl (80-99) 11/25/17 10:00 MCH 27.5 pg (27.0-31.0) 11/25/17 10:00 MCHC Differential 32.7 pg (28.0-36.0) 11/25/17 10:00 RDW 15.9 % (11.5-20.0) 11/25/17 10:00 Plt Count 256 Th/cmm (150-400) 11/25/17 10:00 MPV 8.5 fl 11/25/17 10:00 Neutrophils % 66.7 % (40.0-80.0) 11/25/17 10:00 Lymphocytes % 22.4 % (20.0-50.0) 11/25/17 10:00 Monocytes % 7.8 % (2.0-10.0) 11/25/17 10:00 Eosinophils % 2.9 % (0.0-5.0) 11/25/17 10:00 Basophils % 0.2 % (0.0-2.0) 11/25/17 10:00 Sodium 136 mEq/L (136-145) 11/10/17 16:37 Potassium 4.4 mEq/L (3.5-5.1) 11/10/17 16:37 Chloride 102 mEq/L (98-107) 11/10/17 16:37 Carbon Dioxide 27.6 mEq/L (21.0-31.0) 11/10/17 16:37 Anion Gap 10.8 (7.0-16.0) 11/10/17 16:37 BUN 18 mg/dL (7-25) 11/10/17 16:37 Creatinine 1.0 mg/dL (0.7-1.3) 11/10/17 16:37 Est GFR ( Amer) > 60.0 ml/min (>90) 11/10/17 16:37 Est GFR (Non-Af Amer) > 60.0 ml/min 11/10/17 16:37 BUN/Creatinine Ratio 18.0 11/10/17 16:37 Glucose 115 mg/dL (70-105) H 11/10/17 16:37 POC Glucose 87 MG/DL (70 - 105) 12/05/17 06:22 Hemoglobin A1c % 6.0 % (4.0-6.0) 11/10/17 16:37 Calcium 9.5 mg/dL (8.6-10.3) 11/10/17 16:37 Total Bilirubin 0.3 mg/dL (0.3-1.0) 11/10/17 16:37 AST 18 U/L (13-39) 11/10/17 16:37 ALT 11 U/L (7-52) 11/10/17 16:37 Alkaline Phosphatase 62 U/L (34-104) 11/10/17 16:37 Total Protein 6.7 gm/dL (6.0-8.3) 11/10/17 16:37 Albumin 4.2 gm/dL (4.2-5.5) 11/10/17 16:37 Globulin 2.5 gm/dL 11/10/17 16:37 Albumin/Globulin Ratio 1.7 (1.0-1.8) 11/10/17 16:37 Triglycerides 108 mg/dL (<150) 11/10/17 16:37 Cholesterol 157 mg/dL (<200) 11/10/17 16:37 LDL Cholesterol Direct 85 mg/dL (75-193) 11/10/17 16:37 HDL Cholesterol 58 mg/dL (23-92) 11/10/17 16:37 TSH 2.23 uIU/ml (0.34-5.60) 11/10/17 16:37 Urine Source CLEAN C 11/10/17 18:10 Urine Color YELLOW 11/10/17 18:10 Urine Clarity CLEAR (CLEAR) 11/10/17 18:10 Urine pH 7.5 (4.6 - 8.0) 11/10/17 18:10 Ur Specific [place] 1.015 (1.005-1.030) 11/10/17 18:10 Urine Protein NEGATIVE mg/dL (NEGATIVE) 11/10/17 18:10 Urine Glucose (UA) NEGATIVE mg/dL (NEGATIVE) 11/10/17 18:10 Urine Ketones NEGATIVE mg/dL (NEGATIVE) 11/10/17 18:10 Urine Blood NEGATIVE (NEGATIVE) 11/10/17 18:10 Urine Nitrate NEGATIVE (NEGATIVE) 11/10/17 18:10 Urine Bilirubin NEGATIVE (NEGATIVE) 11/10/17 18:10 Urine Urobilinogen 0.2 E.U./dL (0.2 - 1.0) 11/10/17 18:10 Ur Leukocyte Esterase NEGATIVE (NEGATIVE) 11/10/17 18:10 Urine RBC NONE SEEN /hpf (0-5) 11/10/17 18:10 Urine WBC NONE SEEN /hpf (0-5) 11/10/17 18:10 Ur Epithelial Cells NONE SEEN /lpf (FEW) 11/10/17 18:10 Urine Bacteria NONE SEEN /hpf (NONE SEEN) 11/10/17 18:10 Salicylates < 25.0 mg/L (30.0-100.0) L 11/10/17 16:37 Urine Opiates Screen NEGATIVE (NEGATIVE) 11/10/17 18:10 Urine Methadone Screen NEGATIVE (NEGATIVE) 11/10/17 18:10 Acetaminophen < 10.0 ug/mL (10.0-30.0) L 11/10/17 16:37 Ur Barbiturates Screen NEGATIVE (NEGATIVE) 11/10/17 18:10 Valproic Acid 71.0 ug/mL (50.0-100.0) 11/30/17 10:20 Ur Tricyclics Screen NEGATIVE (NEGATIVE) 11/10/17 18:10 Ur Phencyclidine Scrn NEGATIVE (NEGATIVE) 11/10/17 18:10 Amphetamines Screen NEGATIVE (NEGATIVE) 11/10/17 18:10 U Methamphetamines Scrn NEGATIVE (NEGATIVE) 11/10/17 18:10 U Benzodiazepines Scrn NEGATIVE (NEGATIVE) 11/10/17 18:10 U Cocaine Metab Screen NEGATIVE (NEGATIVE) 11/10/17 18:10 U Cannabinoids Screen NEGATIVE (NEGATIVE) 11/10/17 18:10 Ethyl Alcohol < 10 mg/dL (0-10) 11/10/17 16:37 RPR NONREACTIVE (NONREACTIVE) 11/10/17 16:37 - Physical Exam Vitals and I&O: Vital Signs Temp 97.8 F 12/05/17 20:49 Pulse 100 12/05/17 21:22 Resp 20 12/05/17 20:49 BP 127/78 12/05/17 21:22 Pulse Ox 97 12/05/17 20:49 Intake & Output 12/05/17 12/05/17 12/06/17 06:59 18:59 06:59 Intake Total 360 1000 240 Balance 360 1000 240 Intake: Oral 360 1000 240 Other: # Voids 1 3 1 # Bowel Movements 0 1 Active Medications: Current Medications Acetaminophen (Tylenol) 650 mg PO Q4HR PRN PRN Reason: Mild Pain / Temp above 100 Stop: 01/10/18 00:16 Al Hydrox/Mg Hydrox/Simethicone (Maalox) 30 ml PO Q4HR PRN PRN Reason: GI DISTRESS Stop: 01/10/18 00:16 Albuterol/Ipratropium (Duoneb Neb) 3 ml HHN Q8HRT PRN PRN Reason: Shortness of Breath Stop: 01/10/18 00:16 Bupropion HCl (Wellbutrin Xl) 300 mg PO DAILY JOEL PRN Reason: Protocol Stop: 01/27/18 11:34 Last Admin: 12/05/17 08:27 Dose: 300 mg Divalproex Sodium (Depakote Dr) 250 mg PO Q8HR JOEL PRN Reason: Protocol Stop: 01/10/18 04:59 Last Admin: 12/05/17 21:23 Dose: 250 mg Docusate Sodium (Colace) 100 mg PO BID JOEL Stop: 01/10/18 08:59 Last Admin: 12/05/17 16:28 Dose: 100 mg Insulin Aspart (Novolog Insulin Sliding Scale) 0 units SUBQ 0630 JOEL PRN Reason: Protocol Stop: 01/10/18 06:29 Last Admin: 12/05/17 06:24 Dose: Not Given Lorazepam (Ativan) 0.5 mg PO Q6H PRN PRN Reason: Agitation Stop: 01/27/18 14:57 Last Admin: 12/03/17 08:51 Dose: 0.5 mg Metoprolol Tartrate (Lopressor) 25 mg PO HS JOEL Stop: 01/10/18 20:59 Last Admin: 12/05/17 21:22 Dose: 25 mg Mirtazapine (Remeron) 15 mg PO HS JOEL PRN Reason: Protocol Stop: 02/02/18 12:52 Last Admin: 12/05/17 21:23 Dose: 15 mg Multivitamins/Vitamin C (Theragran) 1 tab PO DAILY JOEL Stop: 01/10/18 08:59 Last Admin: 12/05/17 08:27 Dose: 1 tab Olanzapine (Zyprexa) 10 mg PO DAILY JOEL PRN Reason: Protocol Stop: 02/04/18 08:59 Ondansetron HCl (Zofran Odt) 4 mg PO Q4H PRN PRN Reason: Nausea / Vomiting Stop: 01/10/18 00:16 Pantoprazole Sodium (Protonix) 40 mg PO QDAC JOEL Stop: 01/10/18 07:29 Last Admin: 12/05/17 06:44 Dose: 40 mg Simvastatin (Zocor) 20 mg PO HS JOEL PRN Reason: Protocol Stop: 01/10/18 20:59 Last Admin: 12/05/17 21:23 Dose: 20 mg Zolpidem Tartrate (Ambien) 5 mg PO HS PRN PRN Reason: Insomnia Stop: 02/02/18 12:53 Last Admin: 12/05/17 21:23 Dose: 5 mg General: demented HEENT: NC/AT, PERRLA, EOMI, anicteric sclerae, throat clear Neck: Supple, No JVD, No thyromegaly, No LAD Lungs: CTAB Abdomen: non-tender, non-distended Extremities: clear Neurological: no change - Procedures Procedures: Procedures Procedure Code Date GROUP PSYCHOTHERAPY 03943 07/16/15 GROUP PSYCHOTHERAPY GZHZZZZ 07/16/15 INDIVID PSYCHOTHERAP NEC 94.39 09/06/13 OTHER GROUP THERAPY 94.44 05/03/14 RECREATIONAL THERAPY 93.81 08/25/12 Internal Medicine Assmt/Plan - Assessment Assessment: 1.DM. 2.HTN. 3 HYPERLIPIDEMIA. 4.DEMENTIA. - Plan Plan: CONTINUE ON CURRENT MEDICATION AND DIET. Nutritional Asmnt/Malnutr-PDOC - Dietary Evaluation Malnutrition Findings (Please click <Entered> for more info): Nutritional Asmnt/Malnutrition Start: 11/15/17 14: 32 Text: Status: Complete Freq: Document 11/15/17 14:32 [email or web address] (Rec: 11/15/17 14:35 [email or web address]) Nutritional Asmnt/Malnutrition Patient General Information Nutritional Screening Moderate Risk Diagnosis psychosis NOS Pertinent Medical Hx/Surgical Hx DM, HTN, HLD, psychosis Subjective Information Pt confused and depressed. Eating 75-100% of meals. Current Diet Order/ Nutrition Support mechanical soft, chopped, CCHO , MAURA Patient / S.O Not Indicated Pertinent Medications insulin, remeron, MVI, protonix Pertinent Labs POC: 84-107, hgba1c: 6.0 Nutritional Hx/Data Height 1.57 m Height (Calculated Centimeters) 157.5 Current Weight (lbs) 68.039 kg Weight (Calculated Kilograms) 68.0 Weight (Calculated Grams) 77795.9 [place] Body Weight 118 lbs % [place] Body Weight 127 Body Mass Index (BMI) 27.4 Weight Status Overweight GI Symptoms GI Symptoms None Last BM 11/13 Difficult in: None Skin Integrity/Comment: intact Current %PO Good (75-100%) Estimated Nutritional Goals BEE in Kcals: Adj wt of IBW Calories/Kcals/Kg 25-30 Kcals Calculated 5739-8356 kcals Protein: Adj wt of IBW Protein g/k-1.2 Protein Calculated 68-82 g Fluid: ml 6312-5971 mL (1 ml/kcal) Nutritional Problem 1. Problem Problem n/a Etiology none Signs/Symptoms: none Intervention/Recommendation Comments 1. Continue mechanical soft, chopped, CCHO, MAURA diet as ordered Expected Outcomes/Goals Expected Outcomes/Goals Goal: PO intake >50% montior wts, labs, skin, PO intake
[2017-12-06] MEDS: INSULIN ASPART SLIDING SCALE 100 UNITS/ML UNIT SUBQ SCH (06:13)
[2017-12-06] MEDS: Pantoprazole 40 mg EC Tab PO SCH (06:36)
[2017-12-06] MEDS: buPROPion XL 150 mg T 24 H PO SCH (09:47)
[2017-12-06] MEDS: Multivitamin Tab PO SCH (09:47)
--- NOTE | 2017-12-06 11:45 | Internal Medicine Prog Note ---
Internal Medicine Subjective - Subjective Service Date: 12/06/17 Patient seen and examined:: with staff Patient is:: awake, verbal, in bed, denies any new complaints Per staff patient has:: no adverse event (HE FEELS WELL) Internal Medicine Objective - Results Result Diagrams: 11/25/17 10:00 11/10/17 16:37 Recent Labs: Laboratory Last Values WBC 6.7 Th/cmm (4.8-10.8) 11/25/17 10:00 RBC 5.15 Mil/cmm (3.80-5.80) 11/25/17 10:00 Hgb 14.2 gm/dL (12-16) 11/25/17 10:00 Hct 43.3 % (41.0-60) 11/25/17 10:00 MCV 84.0 fl (80-99) 11/25/17 10:00 MCH 27.5 pg (27.0-31.0) 11/25/17 10:00 MCHC Differential 32.7 pg (28.0-36.0) 11/25/17 10:00 RDW 15.9 % (11.5-20.0) 11/25/17 10:00 Plt Count 256 Th/cmm (150-400) 11/25/17 10:00 MPV 8.5 fl 11/25/17 10:00 Neutrophils % 66.7 % (40.0-80.0) 11/25/17 10:00 Lymphocytes % 22.4 % (20.0-50.0) 11/25/17 10:00 Monocytes % 7.8 % (2.0-10.0) 11/25/17 10:00 Eosinophils % 2.9 % (0.0-5.0) 11/25/17 10:00 Basophils % 0.2 % (0.0-2.0) 11/25/17 10:00 Sodium 136 mEq/L (136-145) 11/10/17 16:37 Potassium 4.4 mEq/L (3.5-5.1) 11/10/17 16:37 Chloride 102 mEq/L (98-107) 11/10/17 16:37 Carbon Dioxide 27.6 mEq/L (21.0-31.0) 11/10/17 16:37 Anion Gap 10.8 (7.0-16.0) 11/10/17 16:37 BUN 18 mg/dL (7-25) 11/10/17 16:37 Creatinine 1.0 mg/dL (0.7-1.3) 11/10/17 16:37 Est GFR ( Amer) > 60.0 ml/min (>90) 11/10/17 16:37 Est GFR (Non-Af Amer) > 60.0 ml/min 11/10/17 16:37 BUN/Creatinine Ratio 18.0 11/10/17 16:37 Glucose 115 mg/dL (70-105) H 11/10/17 16:37 POC Glucose 89 MG/DL (70 - 105) 12/06/17 06:03 Hemoglobin A1c % 6.0 % (4.0-6.0) 11/10/17 16:37 Calcium 9.5 mg/dL (8.6-10.3) 11/10/17 16:37 Total Bilirubin 0.3 mg/dL (0.3-1.0) 11/10/17 16:37 AST 18 U/L (13-39) 11/10/17 16:37 ALT 11 U/L (7-52) 11/10/17 16:37 Alkaline Phosphatase 62 U/L (34-104) 11/10/17 16:37 Total Protein 6.7 gm/dL (6.0-8.3) 11/10/17 16:37 Albumin 4.2 gm/dL (4.2-5.5) 11/10/17 16:37 Globulin 2.5 gm/dL 11/10/17 16:37 Albumin/Globulin Ratio 1.7 (1.0-1.8) 11/10/17 16:37 Triglycerides 108 mg/dL (<150) 11/10/17 16:37 Cholesterol 157 mg/dL (<200) 11/10/17 16:37 LDL Cholesterol Direct 85 mg/dL (75-193) 11/10/17 16:37 HDL Cholesterol 58 mg/dL (23-92) 11/10/17 16:37 TSH 2.23 uIU/ml (0.34-5.60) 11/10/17 16:37 Urine Source CLEAN C 11/10/17 18:10 Urine Color YELLOW 11/10/17 18:10 Urine Clarity CLEAR (CLEAR) 11/10/17 18:10 Urine pH 7.5 (4.6 - 8.0) 11/10/17 18:10 Ur Specific [place] 1.015 (1.005-1.030) 11/10/17 18:10 Urine Protein NEGATIVE mg/dL (NEGATIVE) 11/10/17 18:10 Urine Glucose (UA) NEGATIVE mg/dL (NEGATIVE) 11/10/17 18:10 Urine Ketones NEGATIVE mg/dL (NEGATIVE) 11/10/17 18:10 Urine Blood NEGATIVE (NEGATIVE) 11/10/17 18:10 Urine Nitrate NEGATIVE (NEGATIVE) 11/10/17 18:10 Urine Bilirubin NEGATIVE (NEGATIVE) 11/10/17 18:10 Urine Urobilinogen 0.2 E.U./dL (0.2 - 1.0) 11/10/17 18:10 Ur Leukocyte Esterase NEGATIVE (NEGATIVE) 11/10/17 18:10 Urine RBC NONE SEEN /hpf (0-5) 11/10/17 18:10 Urine WBC NONE SEEN /hpf (0-5) 11/10/17 18:10 Ur Epithelial Cells NONE SEEN /lpf (FEW) 11/10/17 18:10 Urine Bacteria NONE SEEN /hpf (NONE SEEN) 11/10/17 18:10 Salicylates < 25.0 mg/L (30.0-100.0) L 11/10/17 16:37 Urine Opiates Screen NEGATIVE (NEGATIVE) 11/10/17 18:10 Urine Methadone Screen NEGATIVE (NEGATIVE) 11/10/17 18:10 Acetaminophen < 10.0 ug/mL (10.0-30.0) L 11/10/17 16:37 Ur Barbiturates Screen NEGATIVE (NEGATIVE) 11/10/17 18:10 Valproic Acid 71.0 ug/mL (50.0-100.0) 11/30/17 10:20 Ur Tricyclics Screen NEGATIVE (NEGATIVE) 11/10/17 18:10 Ur Phencyclidine Scrn NEGATIVE (NEGATIVE) 11/10/17 18:10 Amphetamines Screen NEGATIVE (NEGATIVE) 11/10/17 18:10 U Methamphetamines Scrn NEGATIVE (NEGATIVE) 11/10/17 18:10 U Benzodiazepines Scrn NEGATIVE (NEGATIVE) 11/10/17 18:10 U Cocaine Metab Screen NEGATIVE (NEGATIVE) 11/10/17 18:10 U Cannabinoids Screen NEGATIVE (NEGATIVE) 11/10/17 18:10 Ethyl Alcohol < 10 mg/dL (0-10) 11/10/17 16:37 RPR NONREACTIVE (NONREACTIVE) 11/10/17 16:37 - Physical Exam Vitals and I&O: Vital Signs Temp 98 F 12/06/17 06:11 Pulse 84 12/06/17 06:11 Resp 19 12/06/17 06:11 BP 102/69 12/06/17 06:11 Pulse Ox 94 12/06/17 06:11 Intake & Output 12/05/17 12/06/17 12/06/17 18:59 06:59 18:59 Intake Total 1000 240 Balance 1000 240 Intake: Oral 1000 240 Other: # Voids 3 3 # Bowel Movements 1 0 Active Medications: Current Medications Acetaminophen (Tylenol) 650 mg PO Q4HR PRN PRN Reason: Mild Pain / Temp above 100 Stop: 01/10/18 00:16 Al Hydrox/Mg Hydrox/Simethicone (Maalox) 30 ml PO Q4HR PRN PRN Reason: GI DISTRESS Stop: 01/10/18 00:16 Albuterol/Ipratropium (Duoneb Neb) 3 ml HHN Q8HRT PRN PRN Reason: Shortness of Breath Stop: 01/10/18 00:16 Bupropion HCl (Wellbutrin Xl) 300 mg PO DAILY JOEL PRN Reason: Protocol Stop: 01/27/18 11:34 Last Admin: 12/06/17 09:47 Dose: 300 mg Divalproex Sodium (Depakote Dr) 250 mg PO Q8HR JOEL PRN Reason: Protocol Stop: 01/10/18 04:59 Last Admin: 12/06/17 05:08 Dose: 250 mg Docusate Sodium (Colace) 100 mg PO BID JOEL Stop: 01/10/18 08:59 Last Admin: 12/06/17 09:47 Dose: 100 mg Insulin Aspart (Novolog Insulin Sliding Scale) 0 units SUBQ 0630 JOEL PRN Reason: Protocol Stop: 01/10/18 06:29 Last Admin: 12/06/17 06:13 Dose: Not Given Lorazepam (Ativan) 0.5 mg PO Q6H PRN PRN Reason: Agitation Stop: 01/27/18 14:57 Last Admin: 12/06/17 09:47 Dose: 0.5 mg Metoprolol Tartrate (Lopressor) 25 mg PO HS JOEL Stop: 01/10/18 20:59 Last Admin: 12/05/17 21:22 Dose: 25 mg Mirtazapine (Remeron) 15 mg PO HS JOEL PRN Reason: Protocol Stop: 02/02/18 12:52 Last Admin: 12/05/17 21:23 Dose: 15 mg Multivitamins/Vitamin C (Theragran) 1 tab PO DAILY JOEL Stop: 01/10/18 08:59 Last Admin: 12/06/17 09:47 Dose: 1 tab Olanzapine (Zyprexa) 15 mg PO DAILY JOEL PRN Reason: Protocol Stop: 02/04/18 11:31 Ondansetron HCl (Zofran Odt) 4 mg PO Q4H PRN PRN Reason: Nausea / Vomiting Stop: 01/10/18 00:16 Pantoprazole Sodium (Protonix) 40 mg PO QDAC JOEL Stop: 01/10/18 07:29 Last Admin: 12/06/17 06:36 Dose: 40 mg Simvastatin (Zocor) 20 mg PO HS JOEL PRN Reason: Protocol Stop: 01/10/18 20:59 Last Admin: 12/05/17 21:23 Dose: 20 mg Zolpidem Tartrate (Ambien) 5 mg PO HS PRN PRN Reason: Insomnia Stop: 02/02/18 12:53 Last Admin: 12/05/17 21:23 Dose: 5 mg General: demented HEENT: NC/AT, PERRLA, EOMI, anicteric sclerae, throat clear Neck: Supple, No JVD, No thyromegaly, No LAD Lungs: CTAB Abdomen: non-tender, non-distended Extremities: clear Neurological: no change - Procedures Procedures: Procedures Procedure Code Date GROUP PSYCHOTHERAPY 02183 07/16/15 GROUP PSYCHOTHERAPY GZHZZZZ 07/16/15 INDIVID PSYCHOTHERAP NEC 94.39 09/06/13 OTHER GROUP THERAPY 94.44 05/03/14 RECREATIONAL THERAPY 93.81 08/25/12 Internal Medicine Assmt/Plan - Assessment Assessment: 1.DM. 2.HTN. 3 HYPERLIPIDEMIA. 4.DEMENTIA. - Plan Plan: CONTINUE ON CURRENT MEDICATION AND DIET. Nutritional Asmnt/Malnutr-PDOC - Dietary Evaluation Malnutrition Findings (Please click <Entered> for more info): Nutritional Asmnt/Malnutrition Start: 11/15/17 14: 32 Text: Status: Complete Freq: Document 11/15/17 14:32 [email or web address] (Rec: 11/15/17 14:35 [email or web address]) Nutritional Asmnt/Malnutrition Patient General Information Nutritional Screening Moderate Risk Diagnosis psychosis NOS Pertinent Medical Hx/Surgical Hx DM, HTN, HLD, psychosis Subjective Information Pt confused and depressed. Eating 75-100% of meals. Current Diet Order/ Nutrition Support mechanical soft, chopped, CCHO , MAURA Patient / S.O Not Indicated Pertinent Medications insulin, remeron, MVI, protonix Pertinent Labs POC: 84-107, hgba1c: 6.0 Nutritional Hx/Data Height 1.57 m Height (Calculated Centimeters) 157.5 Current Weight (lbs) 68.039 kg Weight (Calculated Kilograms) 68.0 Weight (Calculated Grams) 16645.9 [place] Body Weight 118 lbs % [place] Body Weight 127 Body Mass Index (BMI) 27.4 Weight Status Overweight GI Symptoms GI Symptoms None Last BM 11/13 Difficult in: None Skin Integrity/Comment: intact Current %PO Good (75-100%) Estimated Nutritional Goals BEE in Kcals: Adj wt of IBW Calories/Kcals/Kg 25-30 Kcals Calculated 6753-6714 kcals Protein: Adj wt of IBW Protein g/k-1.2 Protein Calculated 68-82 g Fluid: ml 4037-6479 mL (1 ml/kcal) Nutritional Problem 1. Problem Problem n/a Etiology none Signs/Symptoms: none Intervention/Recommendation Comments 1. Continue mechanical soft, chopped, CCHO, MAURA diet as ordered Expected Outcomes/Goals Expected Outcomes/Goals Goal: PO intake >50% montior wts, labs, skin, PO intake
--- NOTE | 2017-12-06 22:17 | Progress Notes ---
DATE: 12/06/2017 SUBJECTIVE: Case was discussed with staff of patient and reviewed records. The patient did not get the olanzapine yesterday. He will start getting it today. He said he only slept 3 hours last night. Continues to be easily agitated. Reports the voices are loud. He continues to have poor insight, continues to be unable to make safe plan for self-care. Zyprexa was started yesterday. He never took Zyprexa before he reported, discussed side effects, and we will continue to work the patient in group therapy, milieu therapy, and adjust medications as needed. JOB# [id number]
[2017-12-07] MEDS: INSULIN ASPART SLIDING SCALE 100 UNITS/ML UNIT SUBQ SCH (06:27)
[2017-12-07] MEDS: Pantoprazole 40 mg EC Tab PO SCH (06:38)
[2017-12-07] MEDS: Multivitamin Tab PO SCH (09:25)
[2017-12-07] MEDS: buPROPion XL 150 mg T 24 H PO SCH (09:25)
--- NOTE | 2017-12-07 15:27 | Progress Notes ---
DATE: 12/07/2017 Case was discussed with staff of the patient. The patient continues to be delusional, slept ____ 4 hours last night. I did add Zyprexa, took him off Seroquel 3 days ago and that he is currently on Zyprexa 50 mg daily. He reported this helped him sleep better. He is compliant with the medication with no side effects, no sedation, no nausea, no extrapyramidal symptoms. I will be increasing Zyprexa to 20 mg and we will continue to work with the patient in group therapy, milieu therapy, adjust the medication as needed. JOB# [id number]
--- NOTE | 2017-12-07 19:44 | Internal Medicine Prog Note ---
Internal Medicine Subjective - Subjective Service Date: 12/07/17 Patient seen and examined:: with staff Patient is:: awake, verbal, in bed, denies any new complaints Per staff patient has:: no adverse event (HE FEELS WELL) Internal Medicine Objective - Results Result Diagrams: 11/25/17 10:00 11/10/17 16:37 Recent Labs: Laboratory Last Values WBC 6.7 Th/cmm (4.8-10.8) 11/25/17 10:00 RBC 5.15 Mil/cmm (3.80-5.80) 11/25/17 10:00 Hgb 14.2 gm/dL (12-16) 11/25/17 10:00 Hct 43.3 % (41.0-60) 11/25/17 10:00 MCV 84.0 fl (80-99) 11/25/17 10:00 MCH 27.5 pg (27.0-31.0) 11/25/17 10:00 MCHC Differential 32.7 pg (28.0-36.0) 11/25/17 10:00 RDW 15.9 % (11.5-20.0) 11/25/17 10:00 Plt Count 256 Th/cmm (150-400) 11/25/17 10:00 MPV 8.5 fl 11/25/17 10:00 Neutrophils % 66.7 % (40.0-80.0) 11/25/17 10:00 Lymphocytes % 22.4 % (20.0-50.0) 11/25/17 10:00 Monocytes % 7.8 % (2.0-10.0) 11/25/17 10:00 Eosinophils % 2.9 % (0.0-5.0) 11/25/17 10:00 Basophils % 0.2 % (0.0-2.0) 11/25/17 10:00 Sodium 136 mEq/L (136-145) 11/10/17 16:37 Potassium 4.4 mEq/L (3.5-5.1) 11/10/17 16:37 Chloride 102 mEq/L (98-107) 11/10/17 16:37 Carbon Dioxide 27.6 mEq/L (21.0-31.0) 11/10/17 16:37 Anion Gap 10.8 (7.0-16.0) 11/10/17 16:37 BUN 18 mg/dL (7-25) 11/10/17 16:37 Creatinine 1.0 mg/dL (0.7-1.3) 11/10/17 16:37 Est GFR ( Amer) > 60.0 ml/min (>90) 11/10/17 16:37 Est GFR (Non-Af Amer) > 60.0 ml/min 11/10/17 16:37 BUN/Creatinine Ratio 18.0 11/10/17 16:37 Glucose 115 mg/dL (70-105) H 11/10/17 16:37 POC Glucose 98 MG/DL (70 - 105) 12/07/17 06:02 Hemoglobin A1c % 6.0 % (4.0-6.0) 11/10/17 16:37 Calcium 9.5 mg/dL (8.6-10.3) 11/10/17 16:37 Total Bilirubin 0.3 mg/dL (0.3-1.0) 11/10/17 16:37 AST 18 U/L (13-39) 11/10/17 16:37 ALT 11 U/L (7-52) 11/10/17 16:37 Alkaline Phosphatase 62 U/L (34-104) 11/10/17 16:37 Total Protein 6.7 gm/dL (6.0-8.3) 11/10/17 16:37 Albumin 4.2 gm/dL (4.2-5.5) 11/10/17 16:37 Globulin 2.5 gm/dL 11/10/17 16:37 Albumin/Globulin Ratio 1.7 (1.0-1.8) 11/10/17 16:37 Triglycerides 108 mg/dL (<150) 11/10/17 16:37 Cholesterol 157 mg/dL (<200) 11/10/17 16:37 LDL Cholesterol Direct 85 mg/dL (75-193) 11/10/17 16:37 HDL Cholesterol 58 mg/dL (23-92) 11/10/17 16:37 TSH 2.23 uIU/ml (0.34-5.60) 11/10/17 16:37 Urine Source CLEAN C 11/10/17 18:10 Urine Color YELLOW 11/10/17 18:10 Urine Clarity CLEAR (CLEAR) 11/10/17 18:10 Urine pH 7.5 (4.6 - 8.0) 11/10/17 18:10 Ur Specific [place] 1.015 (1.005-1.030) 11/10/17 18:10 Urine Protein NEGATIVE mg/dL (NEGATIVE) 11/10/17 18:10 Urine Glucose (UA) NEGATIVE mg/dL (NEGATIVE) 11/10/17 18:10 Urine Ketones NEGATIVE mg/dL (NEGATIVE) 11/10/17 18:10 Urine Blood NEGATIVE (NEGATIVE) 11/10/17 18:10 Urine Nitrate NEGATIVE (NEGATIVE) 11/10/17 18:10 Urine Bilirubin NEGATIVE (NEGATIVE) 11/10/17 18:10 Urine Urobilinogen 0.2 E.U./dL (0.2 - 1.0) 11/10/17 18:10 Ur Leukocyte Esterase NEGATIVE (NEGATIVE) 11/10/17 18:10 Urine RBC NONE SEEN /hpf (0-5) 11/10/17 18:10 Urine WBC NONE SEEN /hpf (0-5) 11/10/17 18:10 Ur Epithelial Cells NONE SEEN /lpf (FEW) 11/10/17 18:10 Urine Bacteria NONE SEEN /hpf (NONE SEEN) 11/10/17 18:10 Salicylates < 25.0 mg/L (30.0-100.0) L 11/10/17 16:37 Urine Opiates Screen NEGATIVE (NEGATIVE) 11/10/17 18:10 Urine Methadone Screen NEGATIVE (NEGATIVE) 11/10/17 18:10 Acetaminophen < 10.0 ug/mL (10.0-30.0) L 11/10/17 16:37 Ur Barbiturates Screen NEGATIVE (NEGATIVE) 11/10/17 18:10 Valproic Acid 71.0 ug/mL (50.0-100.0) 11/30/17 10:20 Ur Tricyclics Screen NEGATIVE (NEGATIVE) 11/10/17 18:10 Ur Phencyclidine Scrn NEGATIVE (NEGATIVE) 11/10/17 18:10 Amphetamines Screen NEGATIVE (NEGATIVE) 11/10/17 18:10 U Methamphetamines Scrn NEGATIVE (NEGATIVE) 11/10/17 18:10 U Benzodiazepines Scrn NEGATIVE (NEGATIVE) 11/10/17 18:10 U Cocaine Metab Screen NEGATIVE (NEGATIVE) 11/10/17 18:10 U Cannabinoids Screen NEGATIVE (NEGATIVE) 11/10/17 18:10 Ethyl Alcohol < 10 mg/dL (0-10) 11/10/17 16:37 RPR NONREACTIVE (NONREACTIVE) 11/10/17 16:37 - Physical Exam Vitals and I&O: Vital Signs Temp 98.2 F 12/07/17 15:49 Pulse 99 12/07/17 15:49 Resp 18 12/07/17 15:49 BP 101/59 12/07/17 15:49 Pulse Ox 97 12/07/17 15:49 Intake & Output 12/07/17 12/07/17 12/08/17 06:59 18:59 06:59 Intake Total 240 1200 Balance 240 1200 Intake: Oral 240 1200 Other: # Voids 1 3 # Bowel Movements 0 Active Medications: Current Medications Acetaminophen (Tylenol) 650 mg PO Q4HR PRN PRN Reason: Mild Pain / Temp above 100 Stop: 01/10/18 00:16 Al Hydrox/Mg Hydrox/Simethicone (Maalox) 30 ml PO Q4HR PRN PRN Reason: GI DISTRESS Stop: 01/10/18 00:16 Albuterol/Ipratropium (Duoneb Neb) 3 ml HHN Q8HRT PRN PRN Reason: Shortness of Breath Stop: 01/10/18 00:16 Bupropion HCl (Wellbutrin Xl) 300 mg PO DAILY JOEL PRN Reason: Protocol Stop: 01/27/18 11:34 Last Admin: 12/07/17 09:25 Dose: 300 mg Divalproex Sodium (Depakote Dr) 250 mg PO Q8HR JOEL PRN Reason: Protocol Stop: 01/10/18 04:59 Last Admin: 12/07/17 14:18 Dose: 250 mg Docusate Sodium (Colace) 100 mg PO BID JOEL Stop: 01/10/18 08:59 Last Admin: 12/07/17 18:46 Dose: 100 mg Insulin Aspart (Novolog Insulin Sliding Scale) 0 units SUBQ 0630 JOEL PRN Reason: Protocol Stop: 01/10/18 06:29 Last Admin: 12/07/17 06:27 Dose: Not Given Lorazepam (Ativan) 0.5 mg PO Q6H PRN PRN Reason: Agitation Stop: 01/27/18 14:57 Last Admin: 12/07/17 09:25 Dose: 0.5 mg Metoprolol Tartrate (Lopressor) 25 mg PO HS JOEL Stop: 01/10/18 20:59 Last Admin: 12/06/17 21:16 Dose: 25 mg Mirtazapine (Remeron) 15 mg PO HS JOEL PRN Reason: Protocol Stop: 02/02/18 12:52 Last Admin: 12/06/17 21:15 Dose: 15 mg Multivitamins/Vitamin C (Theragran) 1 tab PO DAILY JOEL Stop: 01/10/18 08:59 Last Admin: 12/07/17 09:25 Dose: 1 tab Olanzapine (Zyprexa) 20 mg PO DAILY JOEL PRN Reason: Protocol Stop: 02/05/18 15:59 Last Admin: 12/07/17 18:46 Dose: 20 mg Ondansetron HCl (Zofran Odt) 4 mg PO Q4H PRN PRN Reason: Nausea / Vomiting Stop: 01/10/18 00:16 Pantoprazole Sodium (Protonix) 40 mg PO QDAC JOEL Stop: 01/10/18 07:29 Last Admin: 12/07/17 06:38 Dose: 40 mg Simvastatin (Zocor) 20 mg PO HS JOEL PRN Reason: Protocol Stop: 01/10/18 20:59 Last Admin: 12/06/17 21:12 Dose: 20 mg Zolpidem Tartrate (Ambien) 5 mg PO HS PRN PRN Reason: Insomnia Stop: 02/02/18 12:53 Last Admin: 12/06/17 21:16 Dose: 5 mg General: demented HEENT: NC/AT, PERRLA, EOMI, anicteric sclerae, throat clear Neck: Supple, No JVD, No thyromegaly, No LAD Lungs: CTAB Abdomen: non-tender, non-distended Extremities: clear Neurological: no change - Procedures Procedures: Procedures Procedure Code Date GROUP PSYCHOTHERAPY 02744 07/16/15 GROUP PSYCHOTHERAPY GZHZZZZ 07/16/15 INDIVID PSYCHOTHERAP NEC 94.39 09/06/13 OTHER GROUP THERAPY 94.44 05/03/14 RECREATIONAL THERAPY 93.81 08/25/12 Internal Medicine Assmt/Plan - Assessment Assessment: 1.DM. 2.HTN. 3 HYPERLIPIDEMIA. 4.DEMENTIA. - Plan Plan: CONTINUE ON CURRENT MEDICATION AND DIET. Nutritional Asmnt/Malnutr-PDOC - Dietary Evaluation Malnutrition Findings (Please click <Entered> for more info): Nutritional Asmnt/Malnutrition Start: 11/15/17 14: 32 Text: Status: Complete Freq: Document 11/15/17 14:32 [email or web address] (Rec: 11/15/17 14:35 [email or web address]) Nutritional Asmnt/Malnutrition Patient General Information Nutritional Screening Moderate Risk Diagnosis psychosis NOS Pertinent Medical Hx/Surgical Hx DM, HTN, HLD, psychosis Subjective Information Pt confused and depressed. Eating 75-100% of meals. Current Diet Order/ Nutrition Support mechanical soft, chopped, CCHO , MAURA Patient / S.O Not Indicated Pertinent Medications insulin, remeron, MVI, protonix Pertinent Labs POC: 84-107, hgba1c: 6.0 Nutritional Hx/Data Height 1.57 m Height (Calculated Centimeters) 157.5 Current Weight (lbs) 68.039 kg Weight (Calculated Kilograms) 68.0 Weight (Calculated Grams) 94840.9 [place] Body Weight 118 lbs % [place] Body Weight 127 Body Mass Index (BMI) 27.4 Weight Status Overweight GI Symptoms GI Symptoms None Last BM 11/13 Difficult in: None Skin Integrity/Comment: intact Current %PO Good (75-100%) Estimated Nutritional Goals BEE in Kcals: Adj wt of IBW Calories/Kcals/Kg 25-30 Kcals Calculated 8412-8252 kcals Protein: Adj wt of IBW Protein g/k-1.2 Protein Calculated 68-82 g Fluid: ml 0317-3916 mL (1 ml/kcal) Nutritional Problem 1. Problem Problem n/a Etiology none Signs/Symptoms: none Intervention/Recommendation Comments 1. Continue mechanical soft, chopped, CCHO, MAURA diet as ordered Expected Outcomes/Goals Expected Outcomes/Goals Goal: PO intake >50% montior wts, labs, skin, PO intake
[2017-12-08] MEDS: INSULIN ASPART SLIDING SCALE 100 UNITS/ML UNIT SUBQ SCH (05:50)
[2017-12-08] MEDS: Pantoprazole 40 mg EC Tab PO SCH (06:42)
[2017-12-08] MEDS: buPROPion XL 150 mg T 24 H PO SCH (09:57)
[2017-12-08] MEDS: Multivitamin Tab PO SCH (09:57)
--- NOTE | 2017-12-08 19:10 | Progress Notes ---
DATE: 12/08/2017 Case was discussed with staff of the patient, reviewed records. The patient continues to be psychotic. He said he only slept 4 hours, seeing snakes, hearing voices, not command hallucinations. He tolerated the Zyprexa with no side effects, no sedation, no nausea, no extrapyramidal symptoms. We did increase his dose further and so far no side effects, no sedation, no nausea, no extrapyramidal symptoms. We will continue to work with the patient in group therapy, milieu therapy, adjust medication as needed. JOB# [id number]
--- NOTE | 2017-12-08 20:06 | Internal Medicine Prog Note ---
Internal Medicine Subjective - Subjective Service Date: 12/08/17 Patient seen and examined:: without staff Patient is:: awake, verbal, in bed, denies any new complaints Per staff patient has:: no adverse event (HE FEELS WELL) Internal Medicine Objective - Results Result Diagrams: 11/25/17 10:00 11/10/17 16:37 Recent Labs: Laboratory Last Values WBC 6.7 Th/cmm (4.8-10.8) 11/25/17 10:00 RBC 5.15 Mil/cmm (3.80-5.80) 11/25/17 10:00 Hgb 14.2 gm/dL (12-16) 11/25/17 10:00 Hct 43.3 % (41.0-60) 11/25/17 10:00 MCV 84.0 fl (80-99) 11/25/17 10:00 MCH 27.5 pg (27.0-31.0) 11/25/17 10:00 MCHC Differential 32.7 pg (28.0-36.0) 11/25/17 10:00 RDW 15.9 % (11.5-20.0) 11/25/17 10:00 Plt Count 256 Th/cmm (150-400) 11/25/17 10:00 MPV 8.5 fl 11/25/17 10:00 Neutrophils % 66.7 % (40.0-80.0) 11/25/17 10:00 Lymphocytes % 22.4 % (20.0-50.0) 11/25/17 10:00 Monocytes % 7.8 % (2.0-10.0) 11/25/17 10:00 Eosinophils % 2.9 % (0.0-5.0) 11/25/17 10:00 Basophils % 0.2 % (0.0-2.0) 11/25/17 10:00 Sodium 136 mEq/L (136-145) 11/10/17 16:37 Potassium 4.4 mEq/L (3.5-5.1) 11/10/17 16:37 Chloride 102 mEq/L (98-107) 11/10/17 16:37 Carbon Dioxide 27.6 mEq/L (21.0-31.0) 11/10/17 16:37 Anion Gap 10.8 (7.0-16.0) 11/10/17 16:37 BUN 18 mg/dL (7-25) 11/10/17 16:37 Creatinine 1.0 mg/dL (0.7-1.3) 11/10/17 16:37 Est GFR ( Amer) > 60.0 ml/min (>90) 11/10/17 16:37 Est GFR (Non-Af Amer) > 60.0 ml/min 11/10/17 16:37 BUN/Creatinine Ratio 18.0 11/10/17 16:37 Glucose 115 mg/dL (70-105) H 11/10/17 16:37 POC Glucose 95 MG/DL (70 - 105) 12/08/17 05:37 Hemoglobin A1c % 6.0 % (4.0-6.0) 11/10/17 16:37 Calcium 9.5 mg/dL (8.6-10.3) 11/10/17 16:37 Total Bilirubin 0.3 mg/dL (0.3-1.0) 11/10/17 16:37 AST 18 U/L (13-39) 11/10/17 16:37 ALT 11 U/L (7-52) 11/10/17 16:37 Alkaline Phosphatase 62 U/L (34-104) 11/10/17 16:37 Total Protein 6.7 gm/dL (6.0-8.3) 11/10/17 16:37 Albumin 4.2 gm/dL (4.2-5.5) 11/10/17 16:37 Globulin 2.5 gm/dL 11/10/17 16:37 Albumin/Globulin Ratio 1.7 (1.0-1.8) 11/10/17 16:37 Triglycerides 108 mg/dL (<150) 11/10/17 16:37 Cholesterol 157 mg/dL (<200) 11/10/17 16:37 LDL Cholesterol Direct 85 mg/dL (75-193) 11/10/17 16:37 HDL Cholesterol 58 mg/dL (23-92) 11/10/17 16:37 TSH 2.23 uIU/ml (0.34-5.60) 11/10/17 16:37 Urine Source CLEAN C 11/10/17 18:10 Urine Color YELLOW 11/10/17 18:10 Urine Clarity CLEAR (CLEAR) 11/10/17 18:10 Urine pH 7.5 (4.6 - 8.0) 11/10/17 18:10 Ur Specific [place] 1.015 (1.005-1.030) 11/10/17 18:10 Urine Protein NEGATIVE mg/dL (NEGATIVE) 11/10/17 18:10 Urine Glucose (UA) NEGATIVE mg/dL (NEGATIVE) 11/10/17 18:10 Urine Ketones NEGATIVE mg/dL (NEGATIVE) 11/10/17 18:10 Urine Blood NEGATIVE (NEGATIVE) 11/10/17 18:10 Urine Nitrate NEGATIVE (NEGATIVE) 11/10/17 18:10 Urine Bilirubin NEGATIVE (NEGATIVE) 11/10/17 18:10 Urine Urobilinogen 0.2 E.U./dL (0.2 - 1.0) 11/10/17 18:10 Ur Leukocyte Esterase NEGATIVE (NEGATIVE) 11/10/17 18:10 Urine RBC NONE SEEN /hpf (0-5) 11/10/17 18:10 Urine WBC NONE SEEN /hpf (0-5) 11/10/17 18:10 Ur Epithelial Cells NONE SEEN /lpf (FEW) 11/10/17 18:10 Urine Bacteria NONE SEEN /hpf (NONE SEEN) 11/10/17 18:10 Salicylates < 25.0 mg/L (30.0-100.0) L 11/10/17 16:37 Urine Opiates Screen NEGATIVE (NEGATIVE) 11/10/17 18:10 Urine Methadone Screen NEGATIVE (NEGATIVE) 11/10/17 18:10 Acetaminophen < 10.0 ug/mL (10.0-30.0) L 11/10/17 16:37 Ur Barbiturates Screen NEGATIVE (NEGATIVE) 11/10/17 18:10 Valproic Acid 71.0 ug/mL (50.0-100.0) 11/30/17 10:20 Ur Tricyclics Screen NEGATIVE (NEGATIVE) 11/10/17 18:10 Ur Phencyclidine Scrn NEGATIVE (NEGATIVE) 11/10/17 18:10 Amphetamines Screen NEGATIVE (NEGATIVE) 11/10/17 18:10 U Methamphetamines Scrn NEGATIVE (NEGATIVE) 11/10/17 18:10 U Benzodiazepines Scrn NEGATIVE (NEGATIVE) 11/10/17 18:10 U Cocaine Metab Screen NEGATIVE (NEGATIVE) 11/10/17 18:10 U Cannabinoids Screen NEGATIVE (NEGATIVE) 11/10/17 18:10 Ethyl Alcohol < 10 mg/dL (0-10) 11/10/17 16:37 RPR NONREACTIVE (NONREACTIVE) 11/10/17 16:37 - Physical Exam Vitals and I&O: Vital Signs Temp 98.7 F 12/08/17 14:00 Pulse 88 12/08/17 14:30 Resp 18 12/08/17 14:30 BP 106/59 12/08/17 14:00 Pulse Ox 95 12/08/17 14:30 Intake & Output 12/08/17 12/08/17 12/09/17 06:59 18:59 06:59 Intake Total 120 1000 Balance 120 1000 Intake: Oral 120 1000 Other: # Voids 3 4 # Bowel Movements 0 1 Stool Characteristics Formed Formed Formed Brown Brown Brown Active Medications: Current Medications Acetaminophen (Tylenol) 650 mg PO Q4HR PRN PRN Reason: Mild Pain / Temp above 100 Stop: 01/10/18 00:16 Al Hydrox/Mg Hydrox/Simethicone (Maalox) 30 ml PO Q4HR PRN PRN Reason: GI DISTRESS Stop: 01/10/18 00:16 Albuterol/Ipratropium (Duoneb Neb) 3 ml HHN Q8HRT PRN PRN Reason: Shortness of Breath Stop: 01/10/18 00:16 Bupropion HCl (Wellbutrin Xl) 300 mg PO DAILY JOEL PRN Reason: Protocol Stop: 01/27/18 11:34 Last Admin: 12/08/17 09:57 Dose: 300 mg Divalproex Sodium (Depakote Dr) 250 mg PO Q8HR JOEL PRN Reason: Protocol Stop: 01/10/18 04:59 Last Admin: 12/08/17 14:16 Dose: 250 mg Docusate Sodium (Colace) 100 mg PO BID JOEL Stop: 01/10/18 08:59 Last Admin: 12/08/17 17:59 Dose: 100 mg Insulin Aspart (Novolog Insulin Sliding Scale) 0 units SUBQ 0630 JOEL PRN Reason: Protocol Stop: 01/10/18 06:29 Last Admin: 12/08/17 05:50 Dose: Not Given Lorazepam (Ativan) 0.5 mg PO Q6H PRN PRN Reason: Agitation Stop: 01/27/18 14:57 Last Admin: 12/07/17 09:25 Dose: 0.5 mg Metoprolol Tartrate (Lopressor) 25 mg PO HS JOEL Stop: 01/10/18 20:59 Last Admin: 12/07/17 21:45 Dose: Not Given Mirtazapine (Remeron) 15 mg PO HS JOEL PRN Reason: Protocol Stop: 02/02/18 12:52 Last Admin: 12/07/17 21:44 Dose: 15 mg Multivitamins/Vitamin C (Theragran) 1 tab PO DAILY JOEL Stop: 01/10/18 08:59 Last Admin: 12/08/17 09:57 Dose: 1 tab Olanzapine 20 mg/ Olanzapine 5 (mg) 25 mg PO BID JOEL Stop: 02/06/18 16:59 Last Admin: 12/08/17 17:58 Dose: 25 mg Ondansetron HCl (Zofran Odt) 4 mg PO Q4H PRN PRN Reason: Nausea / Vomiting Stop: 01/10/18 00:16 Pantoprazole Sodium (Protonix) 40 mg PO QDAC JOEL Stop: 01/10/18 07:29 Last Admin: 12/08/17 06:42 Dose: 40 mg Simvastatin (Zocor) 20 mg PO HS JOEL PRN Reason: Protocol Stop: 01/10/18 20:59 Last Admin: 12/07/17 21:44 Dose: 20 mg Zolpidem Tartrate (Ambien) 5 mg PO HS PRN PRN Reason: Insomnia Stop: 02/02/18 12:53 Last Admin: 12/06/17 21:16 Dose: 5 mg General: demented HEENT: NC/AT, PERRLA, EOMI, anicteric sclerae, throat clear Neck: Supple, No JVD, No thyromegaly, No LAD Lungs: CTAB Abdomen: non-tender, non-distended Extremities: clear Neurological: no change - Procedures Procedures: Procedures Procedure Code Date GROUP PSYCHOTHERAPY 67028 07/16/15 GROUP PSYCHOTHERAPY GZHZZZZ 07/16/15 INDIVID PSYCHOTHERAP NEC 94.39 09/06/13 OTHER GROUP THERAPY 94.44 05/03/14 RECREATIONAL THERAPY 93.81 08/25/12 Internal Medicine Assmt/Plan - Assessment Assessment: 1.DM. 2.HTN. 3 HYPERLIPIDEMIA. 4.DEMENTIA. - Plan Plan: CONTINUE ON CURRENT MEDICATION AND DIET. Nutritional Asmnt/Malnutr-PDOC - Dietary Evaluation Malnutrition Findings (Please click <Entered> for more info): Nutritional Asmnt/Malnutrition Start: 11/15/17 14: 32 Text: Status: Complete Freq: Document 11/15/17 14:32 [email or web address].[email or web address] (Rec: 11/15/17 14:35 [email or web address]) Nutritional Asmnt/Malnutrition Patient General Information Nutritional Screening Moderate Risk Diagnosis psychosis NOS Pertinent Medical Hx/Surgical Hx DM, HTN, HLD, psychosis Subjective Information Pt confused and depressed. Eating 75-100% of meals. Current Diet Order/ Nutrition Support mechanical soft, chopped, CCHO , MAURA Patient / S.O Not Indicated Pertinent Medications insulin, remeron, MVI, protonix Pertinent Labs POC: 84-107, hgba1c: 6.0 Nutritional Hx/Data Height 1.57 m Height (Calculated Centimeters) 157.5 Current Weight (lbs) 68.039 kg Weight (Calculated Kilograms) 68.0 Weight (Calculated Grams) 69923.9 [place] Body Weight 118 lbs % [place] Body Weight 127 Body Mass Index (BMI) 27.4 Weight Status Overweight GI Symptoms GI Symptoms None Last BM 11/13 Difficult in: None Skin Integrity/Comment: intact Current %PO Good (75-100%) Estimated Nutritional Goals BEE in Kcals: Adj wt of IBW Calories/Kcals/Kg 25-30 Kcals Calculated 4745-2340 kcals Protein: Adj wt of IBW Protein g/k-1.2 Protein Calculated 68-82 g Fluid: ml 2320-7115 mL (1 ml/kcal) Nutritional Problem 1. Problem Problem n/a Etiology none Signs/Symptoms: none Intervention/Recommendation Comments 1. Continue mechanical soft, chopped, CCHO, MAURA diet as ordered Expected Outcomes/Goals Expected Outcomes/Goals Goal: PO intake >50% montior wts, labs, skin, PO intake
[2017-12-09] MEDS: INSULIN ASPART SLIDING SCALE 100 UNITS/ML UNIT SUBQ SCH (06:29)
[2017-12-09] MEDS: Pantoprazole 40 mg EC Tab PO SCH (06:30)
[2017-12-09] MEDS: Multivitamin Tab PO SCH (11:04)
[2017-12-09] MEDS: buPROPion XL 150 mg T 24 H PO SCH (11:04)
--- NOTE | 2017-12-09 19:28 | Internal Medicine Prog Note ---
Internal Medicine Subjective - Subjective Service Date: 12/09/17 Patient seen and examined:: with staff Patient is:: awake, verbal, in bed, denies any new complaints Per staff patient has:: no adverse event (HE FEELS WELL) Internal Medicine Objective - Results Result Diagrams: 11/25/17 10:00 11/10/17 16:37 Recent Labs: Laboratory Last Values WBC 6.7 Th/cmm (4.8-10.8) 11/25/17 10:00 RBC 5.15 Mil/cmm (3.80-5.80) 11/25/17 10:00 Hgb 14.2 gm/dL (12-16) 11/25/17 10:00 Hct 43.3 % (41.0-60) 11/25/17 10:00 MCV 84.0 fl (80-99) 11/25/17 10:00 MCH 27.5 pg (27.0-31.0) 11/25/17 10:00 MCHC Differential 32.7 pg (28.0-36.0) 11/25/17 10:00 RDW 15.9 % (11.5-20.0) 11/25/17 10:00 Plt Count 256 Th/cmm (150-400) 11/25/17 10:00 MPV 8.5 fl 11/25/17 10:00 Neutrophils % 66.7 % (40.0-80.0) 11/25/17 10:00 Lymphocytes % 22.4 % (20.0-50.0) 11/25/17 10:00 Monocytes % 7.8 % (2.0-10.0) 11/25/17 10:00 Eosinophils % 2.9 % (0.0-5.0) 11/25/17 10:00 Basophils % 0.2 % (0.0-2.0) 11/25/17 10:00 Sodium 136 mEq/L (136-145) 11/10/17 16:37 Potassium 4.4 mEq/L (3.5-5.1) 11/10/17 16:37 Chloride 102 mEq/L (98-107) 11/10/17 16:37 Carbon Dioxide 27.6 mEq/L (21.0-31.0) 11/10/17 16:37 Anion Gap 10.8 (7.0-16.0) 11/10/17 16:37 BUN 18 mg/dL (7-25) 11/10/17 16:37 Creatinine 1.0 mg/dL (0.7-1.3) 11/10/17 16:37 Est GFR ( Amer) > 60.0 ml/min (>90) 11/10/17 16:37 Est GFR (Non-Af Amer) > 60.0 ml/min 11/10/17 16:37 BUN/Creatinine Ratio 18.0 11/10/17 16:37 Glucose 115 mg/dL (70-105) H 11/10/17 16:37 POC Glucose 95 MG/DL (70 - 105) 12/09/17 06:09 Hemoglobin A1c % 6.0 % (4.0-6.0) 11/10/17 16:37 Calcium 9.5 mg/dL (8.6-10.3) 11/10/17 16:37 Total Bilirubin 0.3 mg/dL (0.3-1.0) 11/10/17 16:37 AST 18 U/L (13-39) 11/10/17 16:37 ALT 11 U/L (7-52) 11/10/17 16:37 Alkaline Phosphatase 62 U/L (34-104) 11/10/17 16:37 Total Protein 6.7 gm/dL (6.0-8.3) 11/10/17 16:37 Albumin 4.2 gm/dL (4.2-5.5) 11/10/17 16:37 Globulin 2.5 gm/dL 11/10/17 16:37 Albumin/Globulin Ratio 1.7 (1.0-1.8) 11/10/17 16:37 Triglycerides 108 mg/dL (<150) 11/10/17 16:37 Cholesterol 157 mg/dL (<200) 11/10/17 16:37 LDL Cholesterol Direct 85 mg/dL (75-193) 11/10/17 16:37 HDL Cholesterol 58 mg/dL (23-92) 11/10/17 16:37 TSH 2.23 uIU/ml (0.34-5.60) 11/10/17 16:37 Urine Source CLEAN C 11/10/17 18:10 Urine Color YELLOW 11/10/17 18:10 Urine Clarity CLEAR (CLEAR) 11/10/17 18:10 Urine pH 7.5 (4.6 - 8.0) 11/10/17 18:10 Ur Specific [place] 1.015 (1.005-1.030) 11/10/17 18:10 Urine Protein NEGATIVE mg/dL (NEGATIVE) 11/10/17 18:10 Urine Glucose (UA) NEGATIVE mg/dL (NEGATIVE) 11/10/17 18:10 Urine Ketones NEGATIVE mg/dL (NEGATIVE) 11/10/17 18:10 Urine Blood NEGATIVE (NEGATIVE) 11/10/17 18:10 Urine Nitrate NEGATIVE (NEGATIVE) 11/10/17 18:10 Urine Bilirubin NEGATIVE (NEGATIVE) 11/10/17 18:10 Urine Urobilinogen 0.2 E.U./dL (0.2 - 1.0) 11/10/17 18:10 Ur Leukocyte Esterase NEGATIVE (NEGATIVE) 11/10/17 18:10 Urine RBC NONE SEEN /hpf (0-5) 11/10/17 18:10 Urine WBC NONE SEEN /hpf (0-5) 11/10/17 18:10 Ur Epithelial Cells NONE SEEN /lpf (FEW) 11/10/17 18:10 Urine Bacteria NONE SEEN /hpf (NONE SEEN) 11/10/17 18:10 Salicylates < 25.0 mg/L (30.0-100.0) L 11/10/17 16:37 Urine Opiates Screen NEGATIVE (NEGATIVE) 11/10/17 18:10 Urine Methadone Screen NEGATIVE (NEGATIVE) 11/10/17 18:10 Acetaminophen < 10.0 ug/mL (10.0-30.0) L 11/10/17 16:37 Ur Barbiturates Screen NEGATIVE (NEGATIVE) 11/10/17 18:10 Valproic Acid 71.0 ug/mL (50.0-100.0) 11/30/17 10:20 Ur Tricyclics Screen NEGATIVE (NEGATIVE) 11/10/17 18:10 Ur Phencyclidine Scrn NEGATIVE (NEGATIVE) 11/10/17 18:10 Amphetamines Screen NEGATIVE (NEGATIVE) 11/10/17 18:10 U Methamphetamines Scrn NEGATIVE (NEGATIVE) 11/10/17 18:10 U Benzodiazepines Scrn NEGATIVE (NEGATIVE) 11/10/17 18:10 U Cocaine Metab Screen NEGATIVE (NEGATIVE) 11/10/17 18:10 U Cannabinoids Screen NEGATIVE (NEGATIVE) 11/10/17 18:10 Ethyl Alcohol < 10 mg/dL (0-10) 11/10/17 16:37 RPR NONREACTIVE (NONREACTIVE) 11/10/17 16:37 - Physical Exam Vitals and I&O: Vital Signs Temp 98.4 F 12/09/17 14:00 Pulse 95 12/09/17 14:01 Resp 18 12/09/17 14:03 BP 114/75 12/09/17 14:00 Pulse Ox 97 12/09/17 14:01 Intake & Output 12/09/17 12/09/17 12/10/17 06:59 18:59 06:59 Intake Total 450 1200 Balance 450 1200 Intake: Oral 450 1200 Other: # Voids 2 # Bowel Movements 0 1 Stool Characteristics Formed Formed Formed Brown Brown Brown Active Medications: Current Medications Acetaminophen (Tylenol) 650 mg PO Q4HR PRN PRN Reason: Mild Pain / Temp above 100 Stop: 01/10/18 00:16 Al Hydrox/Mg Hydrox/Simethicone (Maalox) 30 ml PO Q4HR PRN PRN Reason: GI DISTRESS Stop: 01/10/18 00:16 Albuterol/Ipratropium (Duoneb Neb) 3 ml HHN Q8HRT PRN PRN Reason: Shortness of Breath Stop: 01/10/18 00:16 Bupropion HCl (Wellbutrin Xl) 300 mg PO DAILY JOEL PRN Reason: Protocol Stop: 01/27/18 11:34 Last Admin: 12/09/17 11:04 Dose: 300 mg Divalproex Sodium (Depakote Dr) 250 mg PO Q8HR JOEL PRN Reason: Protocol Stop: 01/10/18 04:59 Last Admin: 12/09/17 15:00 Dose: 250 mg Docusate Sodium (Colace) 100 mg PO BID JOEL Stop: 01/10/18 08:59 Last Admin: 12/09/17 11:04 Dose: 100 mg Insulin Aspart (Novolog Insulin Sliding Scale) 0 units SUBQ 0630 JOEL PRN Reason: Protocol Stop: 01/10/18 06:29 Last Admin: 12/09/17 06:29 Dose: Not Given Lorazepam (Ativan) 0.5 mg PO Q6H PRN PRN Reason: Agitation Stop: 01/27/18 14:57 Last Admin: 12/09/17 11:21 Dose: 0.5 mg Metoprolol Tartrate (Lopressor) 25 mg PO HS JOEL Stop: 01/10/18 20:59 Last Admin: 12/08/17 20:42 Dose: 25 mg Mirtazapine (Remeron) 15 mg PO HS JOEL PRN Reason: Protocol Stop: 02/02/18 12:52 Last Admin: 12/08/17 20:43 Dose: 15 mg Multivitamins/Vitamin C (Theragran) 1 tab PO DAILY JOEL Stop: 01/10/18 08:59 Last Admin: 12/09/17 11:04 Dose: 1 tab Olanzapine 20 mg/ Olanzapine 5 (mg) 25 mg PO HS JOEL Stop: 02/07/18 20:59 Ondansetron HCl (Zofran Odt) 4 mg PO Q4H PRN PRN Reason: Nausea / Vomiting Stop: 01/10/18 00:16 Pantoprazole Sodium (Protonix) 40 mg PO QDAC JOEL Stop: 01/10/18 07:29 Last Admin: 12/09/17 06:30 Dose: 40 mg Simvastatin (Zocor) 20 mg PO HS JOEL PRN Reason: Protocol Stop: 01/10/18 20:59 Last Admin: 12/08/17 20:42 Dose: 20 mg Zolpidem Tartrate (Ambien) 5 mg PO HS PRN PRN Reason: Insomnia Stop: 02/02/18 12:53 Last Admin: 12/06/17 21:16 Dose: 5 mg General: demented HEENT: NC/AT, PERRLA, EOMI, anicteric sclerae, throat clear Neck: Supple, No JVD, No thyromegaly, No LAD Lungs: CTAB Abdomen: non-tender, non-distended Extremities: clear Neurological: no change - Procedures Procedures: Procedures Procedure Code Date GROUP PSYCHOTHERAPY 99259 07/16/15 GROUP PSYCHOTHERAPY GZHZZZZ 07/16/15 INDIVID PSYCHOTHERAP NEC 94.39 09/06/13 OTHER GROUP THERAPY 94.44 05/03/14 RECREATIONAL THERAPY 93.81 08/25/12 Internal Medicine Assmt/Plan - Assessment Assessment: 1.DM. 2.HTN. 3 HYPERLIPIDEMIA. 4.DEMENTIA. - Plan Plan: CONTINUE ON CURRENT MEDICATION AND DIET. Nutritional Asmnt/Malnutr-PDOC - Dietary Evaluation Malnutrition Findings (Please click <Entered> for more info): Nutritional Asmnt/Malnutrition Start: 11/15/17 14: 32 Text: Status: Complete Freq: Document 11/15/17 14:32 [email or web address] (Rec: 11/15/17 14:35 [email or web address]) Nutritional Asmnt/Malnutrition Patient General Information Nutritional Screening Moderate Risk Diagnosis psychosis NOS Pertinent Medical Hx/Surgical Hx DM, HTN, HLD, psychosis Subjective Information Pt confused and depressed. Eating 75-100% of meals. Current Diet Order/ Nutrition Support mechanical soft, chopped, CCHO , MAURA Patient / S.O Not Indicated Pertinent Medications insulin, remeron, MVI, protonix Pertinent Labs POC: 84-107, hgba1c: 6.0 Nutritional Hx/Data Height 1.57 m Height (Calculated Centimeters) 157.5 Current Weight (lbs) 68.039 kg Weight (Calculated Kilograms) 68.0 Weight (Calculated Grams) 49774.9 [place] Body Weight 118 lbs % [place] Body Weight 127 Body Mass Index (BMI) 27.4 Weight Status Overweight GI Symptoms GI Symptoms None Last BM 11/13 Difficult in: None Skin Integrity/Comment: intact Current %PO Good (75-100%) Estimated Nutritional Goals BEE in Kcals: Adj wt of IBW Calories/Kcals/Kg 25-30 Kcals Calculated 9856-2560 kcals Protein: Adj wt of IBW Protein g/k-1.2 Protein Calculated 68-82 g Fluid: ml 8148-6198 mL (1 ml/kcal) Nutritional Problem 1. Problem Problem n/a Etiology none Signs/Symptoms: none Intervention/Recommendation Comments 1. Continue mechanical soft, chopped, CCHO, MAURA diet as ordered Expected Outcomes/Goals Expected Outcomes/Goals Goal: PO intake >50% montior wts, labs, skin, PO intake
--- NOTE | 2017-12-09 20:34 | Discharge Summary ---
DATE OF DISCHARGE: 12/09/2017 IDENTIFYING INFORMATION: The patient is a 67-year-old male. HISTORY OF PRESENT ILLNESS: The patient was sent from [place] because of hearing voices and were getting bad with a history of schizophrenia. He is combative, agitated. His mood is not good, feeling hopeless and depressed with poor sleep, poor appetite. He has multiple prior admissions to this facility. He is a well known case to me as I treated him also at [place]. COURSE IN THE HOSPITAL: The patient was continued with the Clozaril, the dose was increased. However, he kept getting worse, so I discontinued the Clozaril and added Seroquel, despite increasing dose he did not do well either so I tried to give him Zyprexa and the dose was increased to 25 mg at bedtime. The patient got better. The patient was continued with his other medications, which was Depakote 250 mg 3 times a day and added Wellbutrin because of staying in bed all the time, increase to 300 mg daily also to help with his depression. He was on Remeron 50 mg at bedtime. As he improved, he was eating better, sleeping well, eating well. He was also continued with the simvastatin, multivitamin, metoprolol, so as he was at his basic level of functioning, we felt he could be discharged to a lesser level of care. FINAL DIAGNOSES: AXIS I: Chronic paranoid schizophrenia with acute exacerbation. MEDICAL DIAGNOSES: Deferred to the medical doctor. The patient will go back to [place]. I will follow up with the patient there and Dr. Bedoya will follow up with him there. EXPECTED OUTCOME: Stable if the patient complies the above. ADDENDUM The patient was supposed to have been discharged on the . However, his discharge was postponed until today because of placement issues. The patient is currently doing much better, continues to report hearing voices at times, but he said he is sleeping better. He denies any intent to harm himself or anybody. He reports the voices are much easier to deal with. No side effects with the medication, no sedation or nausea, no extrapyramidal symptoms and the patient will be discharged to a lesser level of care. [facility]# [id number]
[2017-12-10] MEDS: INSULIN ASPART SLIDING SCALE 100 UNITS/ML UNIT SUBQ SCH (05:56)
[2017-12-10] MEDS: Pantoprazole 40 mg EC Tab PO SCH (06:51)
[2017-12-10] MEDS: Multivitamin Tab PO SCH (09:19)
[2017-12-10] MEDS: buPROPion XL 150 mg T 24 H PO SCH (09:19)
--- NOTE | 2017-12-10 18:56 | Internal Medicine Prog Note ---
Internal Medicine Subjective - Subjective Service Date: 12/10/17 Patient seen and examined:: with staff Patient is:: awake, verbal, in bed, denies any new complaints Per staff patient has:: no adverse event (HE FEELS WELL) Internal Medicine Objective - Results Result Diagrams: 11/25/17 10:00 11/10/17 16:37 Recent Labs: Laboratory Last Values WBC 6.7 Th/cmm (4.8-10.8) 11/25/17 10:00 RBC 5.15 Mil/cmm (3.80-5.80) 11/25/17 10:00 Hgb 14.2 gm/dL (12-16) 11/25/17 10:00 Hct 43.3 % (41.0-60) 11/25/17 10:00 MCV 84.0 fl (80-99) 11/25/17 10:00 MCH 27.5 pg (27.0-31.0) 11/25/17 10:00 MCHC Differential 32.7 pg (28.0-36.0) 11/25/17 10:00 RDW 15.9 % (11.5-20.0) 11/25/17 10:00 Plt Count 256 Th/cmm (150-400) 11/25/17 10:00 MPV 8.5 fl 11/25/17 10:00 Neutrophils % 66.7 % (40.0-80.0) 11/25/17 10:00 Lymphocytes % 22.4 % (20.0-50.0) 11/25/17 10:00 Monocytes % 7.8 % (2.0-10.0) 11/25/17 10:00 Eosinophils % 2.9 % (0.0-5.0) 11/25/17 10:00 Basophils % 0.2 % (0.0-2.0) 11/25/17 10:00 Sodium 136 mEq/L (136-145) 11/10/17 16:37 Potassium 4.4 mEq/L (3.5-5.1) 11/10/17 16:37 Chloride 102 mEq/L (98-107) 11/10/17 16:37 Carbon Dioxide 27.6 mEq/L (21.0-31.0) 11/10/17 16:37 Anion Gap 10.8 (7.0-16.0) 11/10/17 16:37 BUN 18 mg/dL (7-25) 11/10/17 16:37 Creatinine 1.0 mg/dL (0.7-1.3) 11/10/17 16:37 Est GFR ( Amer) > 60.0 ml/min (>90) 11/10/17 16:37 Est GFR (Non-Af Amer) > 60.0 ml/min 11/10/17 16:37 BUN/Creatinine Ratio 18.0 11/10/17 16:37 Glucose 115 mg/dL (70-105) H 11/10/17 16:37 POC Glucose 78 MG/DL (70 - 105) 12/10/17 05:42 Hemoglobin A1c % 6.0 % (4.0-6.0) 11/10/17 16:37 Calcium 9.5 mg/dL (8.6-10.3) 11/10/17 16:37 Total Bilirubin 0.3 mg/dL (0.3-1.0) 11/10/17 16:37 AST 18 U/L (13-39) 11/10/17 16:37 ALT 11 U/L (7-52) 11/10/17 16:37 Alkaline Phosphatase 62 U/L (34-104) 11/10/17 16:37 Total Protein 6.7 gm/dL (6.0-8.3) 11/10/17 16:37 Albumin 4.2 gm/dL (4.2-5.5) 11/10/17 16:37 Globulin 2.5 gm/dL 11/10/17 16:37 Albumin/Globulin Ratio 1.7 (1.0-1.8) 11/10/17 16:37 Triglycerides 108 mg/dL (<150) 11/10/17 16:37 Cholesterol 157 mg/dL (<200) 11/10/17 16:37 LDL Cholesterol Direct 85 mg/dL (75-193) 11/10/17 16:37 HDL Cholesterol 58 mg/dL (23-92) 11/10/17 16:37 TSH 2.23 uIU/ml (0.34-5.60) 11/10/17 16:37 Urine Source CLEAN C 11/10/17 18:10 Urine Color YELLOW 11/10/17 18:10 Urine Clarity CLEAR (CLEAR) 11/10/17 18:10 Urine pH 7.5 (4.6 - 8.0) 11/10/17 18:10 Ur Specific [place] 1.015 (1.005-1.030) 11/10/17 18:10 Urine Protein NEGATIVE mg/dL (NEGATIVE) 11/10/17 18:10 Urine Glucose (UA) NEGATIVE mg/dL (NEGATIVE) 11/10/17 18:10 Urine Ketones NEGATIVE mg/dL (NEGATIVE) 11/10/17 18:10 Urine Blood NEGATIVE (NEGATIVE) 11/10/17 18:10 Urine Nitrate NEGATIVE (NEGATIVE) 11/10/17 18:10 Urine Bilirubin NEGATIVE (NEGATIVE) 11/10/17 18:10 Urine Urobilinogen 0.2 E.U./dL (0.2 - 1.0) 11/10/17 18:10 Ur Leukocyte Esterase NEGATIVE (NEGATIVE) 11/10/17 18:10 Urine RBC NONE SEEN /hpf (0-5) 11/10/17 18:10 Urine WBC NONE SEEN /hpf (0-5) 11/10/17 18:10 Ur Epithelial Cells NONE SEEN /lpf (FEW) 11/10/17 18:10 Urine Bacteria NONE SEEN /hpf (NONE SEEN) 11/10/17 18:10 Salicylates < 25.0 mg/L (30.0-100.0) L 11/10/17 16:37 Urine Opiates Screen NEGATIVE (NEGATIVE) 11/10/17 18:10 Urine Methadone Screen NEGATIVE (NEGATIVE) 11/10/17 18:10 Acetaminophen < 10.0 ug/mL (10.0-30.0) L 11/10/17 16:37 Ur Barbiturates Screen NEGATIVE (NEGATIVE) 11/10/17 18:10 Valproic Acid 71.0 ug/mL (50.0-100.0) 11/30/17 10:20 Ur Tricyclics Screen NEGATIVE (NEGATIVE) 11/10/17 18:10 Ur Phencyclidine Scrn NEGATIVE (NEGATIVE) 11/10/17 18:10 Amphetamines Screen NEGATIVE (NEGATIVE) 11/10/17 18:10 U Methamphetamines Scrn NEGATIVE (NEGATIVE) 11/10/17 18:10 U Benzodiazepines Scrn NEGATIVE (NEGATIVE) 11/10/17 18:10 U Cocaine Metab Screen NEGATIVE (NEGATIVE) 11/10/17 18:10 U Cannabinoids Screen NEGATIVE (NEGATIVE) 11/10/17 18:10 Ethyl Alcohol < 10 mg/dL (0-10) 11/10/17 16:37 RPR NONREACTIVE (NONREACTIVE) 11/10/17 16:37 - Physical Exam Vitals and I&O: Vital Signs Temp 97.8 F 12/10/17 14:59 Pulse 95 12/10/17 14:59 Resp 20 12/10/17 14:59 BP 127/63 12/10/17 14:59 Pulse Ox 97 12/10/17 14:59 Intake & Output 12/09/17 12/10/17 12/10/17 18:59 06:59 18:59 Intake Total 1200 240 250 Balance 1200 240 250 Intake: Oral 1200 240 250 Other: # Voids 1 2 # Bowel Movements 1 0 Stool Characteristics Formed Formed Brown Brown Active Medications: Current Medications Acetaminophen (Tylenol) 650 mg PO Q4HR PRN PRN Reason: Mild Pain / Temp above 100 Stop: 01/10/18 00:16 Al Hydrox/Mg Hydrox/Simethicone (Maalox) 30 ml PO Q4HR PRN PRN Reason: GI DISTRESS Stop: 01/10/18 00:16 Albuterol/Ipratropium (Duoneb Neb) 3 ml HHN Q8HRT PRN PRN Reason: Shortness of Breath Stop: 01/10/18 00:16 Bupropion HCl (Wellbutrin Xl) 300 mg PO DAILY JOEL PRN Reason: Protocol Stop: 01/27/18 11:34 Last Admin: 12/10/17 09:19 Dose: 300 mg Divalproex Sodium (Depakote Dr) 250 mg PO Q8HR JOEL PRN Reason: Protocol Stop: 01/10/18 04:59 Last Admin: 12/10/17 12:12 Dose: 250 mg Docusate Sodium (Colace) 100 mg PO BID JOEL Stop: 01/10/18 08:59 Last Admin: 12/10/17 16:06 Dose: 100 mg Insulin Aspart (Novolog Insulin Sliding Scale) 0 units SUBQ 0630 JOEL PRN Reason: Protocol Stop: 01/10/18 06:29 Last Admin: 12/10/17 05:56 Dose: Not Given Lorazepam (Ativan) 0.5 mg PO Q6H PRN PRN Reason: Agitation Stop: 01/27/18 14:57 Last Admin: 12/09/17 11:21 Dose: 0.5 mg Metoprolol Tartrate (Lopressor) 25 mg PO HS JOEL Stop: 01/10/18 20:59 Last Admin: 12/09/17 20:19 Dose: 25 mg Mirtazapine (Remeron) 15 mg PO HS JOEL PRN Reason: Protocol Stop: 02/02/18 12:52 Last Admin: 12/09/17 20:21 Dose: 15 mg Multivitamins/Vitamin C (Theragran) 1 tab PO DAILY JOEL Stop: 01/10/18 08:59 Last Admin: 12/10/17 09:19 Dose: 1 tab Olanzapine 20 mg/ Olanzapine 5 (mg) 25 mg PO HS JOEL Stop: 02/07/18 20:59 Last Admin: 12/09/17 20:19 Dose: 25 mg Ondansetron HCl (Zofran Odt) 4 mg PO Q4H PRN PRN Reason: Nausea / Vomiting Stop: 01/10/18 00:16 Pantoprazole Sodium (Protonix) 40 mg PO QDAC JOEL Stop: 01/10/18 07:29 Last Admin: 12/10/17 06:51 Dose: 40 mg Simvastatin (Zocor) 20 mg PO HS JOEL PRN Reason: Protocol Stop: 01/10/18 20:59 Last Admin: 12/09/17 20:20 Dose: 20 mg Zolpidem Tartrate (Ambien) 5 mg PO HS PRN PRN Reason: Insomnia Stop: 02/02/18 12:53 Last Admin: 12/09/17 20:20 Dose: 5 mg General: demented HEENT: NC/AT, PERRLA, EOMI, anicteric sclerae, throat clear Neck: Supple, No JVD, No thyromegaly, No LAD Lungs: CTAB Abdomen: non-tender, non-distended Extremities: clear Neurological: no change - Procedures Procedures: Procedures Procedure Code Date GROUP PSYCHOTHERAPY 33905 07/16/15 GROUP PSYCHOTHERAPY GZHZZZZ 07/16/15 INDIVID PSYCHOTHERAP NEC 94.39 09/06/13 OTHER GROUP THERAPY 94.44 05/03/14 RECREATIONAL THERAPY 93.81 08/25/12 Internal Medicine Assmt/Plan - Assessment Assessment: 1.DM. 2.HTN. 3 HYPERLIPIDEMIA. 4.DEMENTIA. - Plan Plan: CONTINUE ON CURRENT MEDICATION AND DIET. Nutritional Asmnt/Malnutr-PDOC - Dietary Evaluation Malnutrition Findings (Please click <Entered> for more info): Nutritional Asmnt/Malnutrition Start: 11/15/17 14: 32 Text: Status: Complete Freq: Document 11/15/17 14:32 [email or web address].[email or web address] (Rec: 11/15/17 14:35 [email or web address]) Nutritional Asmnt/Malnutrition Patient General Information Nutritional Screening Moderate Risk Diagnosis psychosis NOS Pertinent Medical Hx/Surgical Hx DM, HTN, HLD, psychosis Subjective Information Pt confused and depressed. Eating 75-100% of meals. Current Diet Order/ Nutrition Support mechanical soft, chopped, CCHO , MAURA Patient / S.O Not Indicated Pertinent Medications insulin, remeron, MVI, protonix Pertinent Labs POC: 84-107, hgba1c: 6.0 Nutritional Hx/Data Height 1.57 m Height (Calculated Centimeters) 157.5 Current Weight (lbs) 68.039 kg Weight (Calculated Kilograms) 68.0 Weight (Calculated Grams) 39512.9 [place] Body Weight 118 lbs % [place] Body Weight 127 Body Mass Index (BMI) 27.4 Weight Status Overweight GI Symptoms GI Symptoms None Last BM 11/13 Difficult in: None Skin Integrity/Comment: intact Current %PO Good (75-100%) Estimated Nutritional Goals BEE in Kcals: Adj wt of IBW Calories/Kcals/Kg 25-30 Kcals Calculated 6050-7902 kcals Protein: Adj wt of IBW Protein g/k-1.2 Protein Calculated 68-82 g Fluid: ml 4044-1864 mL (1 ml/kcal) Nutritional Problem 1. Problem Problem n/a Etiology none Signs/Symptoms: none Intervention/Recommendation Comments 1. Continue mechanical soft, chopped, CCHO, MAURA diet as ordered Expected Outcomes/Goals Expected Outcomes/Goals Goal: PO intake >50% montior wts, labs, skin, PO intake
--- NOTE | 2017-12-10 23:26 | Progress Notes ---
DATE: Dr. Hickey is covering for Dr. Peguero. SUBJECTIVE: Chart reviewed and the patient interviewed. Also discussed the patient's condition with the staff and reviewed records and labs. The patient is well known to me from previous treatment of schizophrenia. The patient is still reporting auditory hallucinations and he still seems to be depressed with hopeless and helpless feelings. The patient was supposed to be discharged yesterday, but for unknown reason, discharge did not happen and the staff did not know the reason for him not being discharged. At the same time, the patient seems to be calmer and he ____ follow directions. ASSESSMENT: The patient is less agitated and less psychotic. TREATMENT PLAN: Continue to monitor his behavior and his condition closely. Also, continue Depakote, Wellbutrin, Remeron, and Zyprexa same dose. JOB# [id number]
[2017-12-11] MEDS: INSULIN ASPART SLIDING SCALE 100 UNITS/ML UNIT SUBQ SCH (06:20)
[2017-12-11] MEDS: Pantoprazole 40 mg EC Tab PO SCH (06:51)
[2017-12-11] MEDS: buPROPion XL 150 mg T 24 H PO SCH (09:25)
[2017-12-11] MEDS: Multivitamin Tab PO SCH (09:25)
--- NOTE | 2017-12-11 18:02 | Progress Notes ---
DATE: 12/11/2017 Chart reviewed and the patient interviewed. Also discussed the patient's condition with the staff and reviewed records and labs. The patient is still paranoid and suspicious and stays by himself most of the time. Today, the patient seems to be slightly sedated and groggy, although no change in his medications. Also, still seems to be preoccupied and responding to stimuli. The patient also still has episodes of anger, but no major behavior problems. ASSESSMENT: The patient is less agitated and less psychotic. TREATMENT PLAN: Continue to monitor his behavior and his medications and continue to work on discharge plans. JOB# [id number]
--- NOTE | 2017-12-11 23:41 | Internal Medicine Prog Note ---
Internal Medicine Subjective - Subjective Service Date: 12/11/17 Patient seen and examined:: without staff Patient is:: awake, verbal, in bed, denies any new complaints Per staff patient has:: no adverse event (HE FEELS WELL) Internal Medicine Objective - Results Result Diagrams: 11/25/17 10:00 11/10/17 16:37 Recent Labs: Laboratory Last Values WBC 6.7 Th/cmm (4.8-10.8) 11/25/17 10:00 RBC 5.15 Mil/cmm (3.80-5.80) 11/25/17 10:00 Hgb 14.2 gm/dL (12-16) 11/25/17 10:00 Hct 43.3 % (41.0-60) 11/25/17 10:00 MCV 84.0 fl (80-99) 11/25/17 10:00 MCH 27.5 pg (27.0-31.0) 11/25/17 10:00 MCHC Differential 32.7 pg (28.0-36.0) 11/25/17 10:00 RDW 15.9 % (11.5-20.0) 11/25/17 10:00 Plt Count 256 Th/cmm (150-400) 11/25/17 10:00 MPV 8.5 fl 11/25/17 10:00 Neutrophils % 66.7 % (40.0-80.0) 11/25/17 10:00 Lymphocytes % 22.4 % (20.0-50.0) 11/25/17 10:00 Monocytes % 7.8 % (2.0-10.0) 11/25/17 10:00 Eosinophils % 2.9 % (0.0-5.0) 11/25/17 10:00 Basophils % 0.2 % (0.0-2.0) 11/25/17 10:00 Sodium 136 mEq/L (136-145) 11/10/17 16:37 Potassium 4.4 mEq/L (3.5-5.1) 11/10/17 16:37 Chloride 102 mEq/L (98-107) 11/10/17 16:37 Carbon Dioxide 27.6 mEq/L (21.0-31.0) 11/10/17 16:37 Anion Gap 10.8 (7.0-16.0) 11/10/17 16:37 BUN 18 mg/dL (7-25) 11/10/17 16:37 Creatinine 1.0 mg/dL (0.7-1.3) 11/10/17 16:37 Est GFR ( Amer) > 60.0 ml/min (>90) 11/10/17 16:37 Est GFR (Non-Af Amer) > 60.0 ml/min 11/10/17 16:37 BUN/Creatinine Ratio 18.0 11/10/17 16:37 Glucose 115 mg/dL (70-105) H 11/10/17 16:37 POC Glucose 87 MG/DL (70 - 105) 12/11/17 06:12 Hemoglobin A1c % 6.0 % (4.0-6.0) 11/10/17 16:37 Calcium 9.5 mg/dL (8.6-10.3) 11/10/17 16:37 Total Bilirubin 0.3 mg/dL (0.3-1.0) 11/10/17 16:37 AST 18 U/L (13-39) 11/10/17 16:37 ALT 11 U/L (7-52) 11/10/17 16:37 Alkaline Phosphatase 62 U/L (34-104) 11/10/17 16:37 Total Protein 6.7 gm/dL (6.0-8.3) 11/10/17 16:37 Albumin 4.2 gm/dL (4.2-5.5) 11/10/17 16:37 Globulin 2.5 gm/dL 11/10/17 16:37 Albumin/Globulin Ratio 1.7 (1.0-1.8) 11/10/17 16:37 Triglycerides 108 mg/dL (<150) 11/10/17 16:37 Cholesterol 157 mg/dL (<200) 11/10/17 16:37 LDL Cholesterol Direct 85 mg/dL (75-193) 11/10/17 16:37 HDL Cholesterol 58 mg/dL (23-92) 11/10/17 16:37 TSH 2.23 uIU/ml (0.34-5.60) 11/10/17 16:37 Urine Source CLEAN C 11/10/17 18:10 Urine Color YELLOW 11/10/17 18:10 Urine Clarity CLEAR (CLEAR) 11/10/17 18:10 Urine pH 7.5 (4.6 - 8.0) 11/10/17 18:10 Ur Specific [place] 1.015 (1.005-1.030) 11/10/17 18:10 Urine Protein NEGATIVE mg/dL (NEGATIVE) 11/10/17 18:10 Urine Glucose (UA) NEGATIVE mg/dL (NEGATIVE) 11/10/17 18:10 Urine Ketones NEGATIVE mg/dL (NEGATIVE) 11/10/17 18:10 Urine Blood NEGATIVE (NEGATIVE) 11/10/17 18:10 Urine Nitrate NEGATIVE (NEGATIVE) 11/10/17 18:10 Urine Bilirubin NEGATIVE (NEGATIVE) 11/10/17 18:10 Urine Urobilinogen 0.2 E.U./dL (0.2 - 1.0) 11/10/17 18:10 Ur Leukocyte Esterase NEGATIVE (NEGATIVE) 11/10/17 18:10 Urine RBC NONE SEEN /hpf (0-5) 11/10/17 18:10 Urine WBC NONE SEEN /hpf (0-5) 11/10/17 18:10 Ur Epithelial Cells NONE SEEN /lpf (FEW) 11/10/17 18:10 Urine Bacteria NONE SEEN /hpf (NONE SEEN) 11/10/17 18:10 Salicylates < 25.0 mg/L (30.0-100.0) L 11/10/17 16:37 Urine Opiates Screen NEGATIVE (NEGATIVE) 11/10/17 18:10 Urine Methadone Screen NEGATIVE (NEGATIVE) 11/10/17 18:10 Acetaminophen < 10.0 ug/mL (10.0-30.0) L 11/10/17 16:37 Ur Barbiturates Screen NEGATIVE (NEGATIVE) 11/10/17 18:10 Valproic Acid 71.0 ug/mL (50.0-100.0) 11/30/17 10:20 Ur Tricyclics Screen NEGATIVE (NEGATIVE) 11/10/17 18:10 Ur Phencyclidine Scrn NEGATIVE (NEGATIVE) 11/10/17 18:10 Amphetamines Screen NEGATIVE (NEGATIVE) 11/10/17 18:10 U Methamphetamines Scrn NEGATIVE (NEGATIVE) 11/10/17 18:10 U Benzodiazepines Scrn NEGATIVE (NEGATIVE) 11/10/17 18:10 U Cocaine Metab Screen NEGATIVE (NEGATIVE) 11/10/17 18:10 U Cannabinoids Screen NEGATIVE (NEGATIVE) 11/10/17 18:10 Ethyl Alcohol < 10 mg/dL (0-10) 11/10/17 16:37 RPR NONREACTIVE (NONREACTIVE) 11/10/17 16:37 - Physical Exam Vitals and I&O: Vital Signs Temp 98.3 F 12/11/17 20:45 Pulse 98 12/11/17 20:45 Resp 20 12/11/17 20:45 BP 105/73 12/11/17 20:45 Pulse Ox 96 12/11/17 20:45 Intake & Output 12/11/17 12/11/17 12/12/17 06:59 18:59 06:59 Intake Total 1500 Balance 1500 Intake: Oral 1500 Other: # Voids 3 Stool Characteristics Formed Brown Active Medications: Current Medications Acetaminophen (Tylenol) 650 mg PO Q4HR PRN PRN Reason: Mild Pain / Temp above 100 Stop: 01/10/18 00:16 Al Hydrox/Mg Hydrox/Simethicone (Maalox) 30 ml PO Q4HR PRN PRN Reason: GI DISTRESS Stop: 01/10/18 00:16 Albuterol/Ipratropium (Duoneb Neb) 3 ml HHN Q8HRT PRN PRN Reason: Shortness of Breath Stop: 01/10/18 00:16 Bupropion HCl (Wellbutrin Xl) 300 mg PO DAILY JOEL PRN Reason: Protocol Stop: 01/27/18 11:34 Last Admin: 12/11/17 09:25 Dose: 300 mg Divalproex Sodium (Depakote Dr) 250 mg PO Q8HR JOEL PRN Reason: Protocol Stop: 01/10/18 04:59 Last Admin: 12/11/17 20:43 Dose: 250 mg Docusate Sodium (Colace) 100 mg PO BID JOEL Stop: 01/10/18 08:59 Last Admin: 12/11/17 16:42 Dose: 100 mg Insulin Aspart (Novolog Insulin Sliding Scale) 0 units SUBQ 0630 JOEL PRN Reason: Protocol Stop: 01/10/18 06:29 Last Admin: 12/11/17 06:20 Dose: Not Given Lorazepam (Ativan) 0.5 mg PO Q6H PRN PRN Reason: Agitation Stop: 01/27/18 14:57 Last Admin: 12/10/17 21:34 Dose: 0.5 mg Metoprolol Tartrate (Lopressor) 25 mg PO HS JOEL Stop: 01/10/18 20:59 Last Admin: 12/11/17 20:42 Dose: 25 mg Mirtazapine (Remeron) 15 mg PO HS JOEL PRN Reason: Protocol Stop: 02/02/18 12:52 Last Admin: 12/11/17 20:42 Dose: 15 mg Multivitamins/Vitamin C (Theragran) 1 tab PO DAILY JOEL Stop: 01/10/18 08:59 Last Admin: 12/11/17 09:25 Dose: 1 tab Mupirocin (Bactroban Oint) 1 appl NS BID JOEL Stop: 12/16/17 09:01 Last Admin: 12/11/17 16:43 Dose: 1 appl Olanzapine 20 mg/ Olanzapine 5 (mg) 25 mg PO HS JOEL Stop: 02/07/18 20:59 Last Admin: 12/11/17 20:43 Dose: 25 mg Ondansetron HCl (Zofran Odt) 4 mg PO Q4H PRN PRN Reason: Nausea / Vomiting Stop: 01/10/18 00:16 Pantoprazole Sodium (Protonix) 40 mg PO QDAC JOEL Stop: 01/10/18 07:29 Last Admin: 12/11/17 06:51 Dose: 40 mg Simvastatin (Zocor) 20 mg PO HS JOEL PRN Reason: Protocol Stop: 01/10/18 20:59 Last Admin: 12/11/17 20:43 Dose: 20 mg Zolpidem Tartrate (Ambien) 5 mg PO HS PRN PRN Reason: Insomnia Stop: 02/02/18 12:53 Last Admin: 12/10/17 21:35 Dose: 5 mg General: demented HEENT: NC/AT, PERRLA, EOMI, anicteric sclerae, throat clear Neck: Supple, No JVD, No thyromegaly, No LAD Lungs: CTAB Abdomen: non-tender, non-distended Extremities: clear Neurological: no change - Procedures Procedures: Procedures Procedure Code Date GROUP PSYCHOTHERAPY 27386 07/16/15 GROUP PSYCHOTHERAPY GZHZZZZ 07/16/15 INDIVID PSYCHOTHERAP NEC 94.39 09/06/13 OTHER GROUP THERAPY 94.44 05/03/14 RECREATIONAL THERAPY 93.81 08/25/12 Internal Medicine Assmt/Plan - Assessment Assessment: 1.DM. 2.HTN. 3 HYPERLIPIDEMIA. 4.DEMENTIA. - Plan Plan: CONTINUE ON CURRENT MEDICATION AND DIET. Nutritional Asmnt/Malnutr-PDOC - Dietary Evaluation Malnutrition Findings (Please click <Entered> for more info): Nutritional Asmnt/Malnutrition Start: 11/15/17 14: 32 Text: Status: Complete Freq: Document 11/15/17 14:32 [email or web address] (Rec: 11/15/17 14:35 [email or web address] [id number]) Nutritional Asmnt/Malnutrition Patient General Information Nutritional Screening Moderate Risk Diagnosis psychosis NOS Pertinent Medical Hx/Surgical Hx DM, HTN, HLD, psychosis Subjective Information Pt confused and depressed. Eating 75-100% of meals. Current Diet Order/ Nutrition Support mechanical soft, chopped, CCHO , MAURA Patient / S.O Not Indicated Pertinent Medications insulin, remeron, MVI, protonix Pertinent Labs POC: 84-107, hgba1c: 6.0 Nutritional Hx/Data Height 1.57 m Height (Calculated Centimeters) 157.5 Current Weight (lbs) 68.039 kg Weight (Calculated Kilograms) 68.0 Weight (Calculated Grams) 16872.9 [place] Body Weight 118 lbs % [place] Body Weight 127 Body Mass Index (BMI) 27.4 Weight Status Overweight GI Symptoms GI Symptoms None Last BM 11/13 Difficult in: None Skin Integrity/Comment: intact Current %PO Good (75-100%) Estimated Nutritional Goals BEE in Kcals: Adj wt of IBW Calories/Kcals/Kg 25-30 Kcals Calculated 2127-7563 kcals Protein: Adj wt of IBW Protein g/k-1.2 Protein Calculated 68-82 g Fluid: ml 9605-1946 mL (1 ml/kcal) Nutritional Problem 1. Problem Problem n/a Etiology none Signs/Symptoms: none Intervention/Recommendation Comments 1. Continue mechanical soft, chopped, CCHO, MAURA diet as ordered Expected Outcomes/Goals Expected Outcomes/Goals Goal: PO intake >50% montior wts, labs, skin, PO intake
[2017-12-12] MEDS: Pantoprazole 40 mg EC Tab PO SCH (06:32)
[2017-12-12] MEDS: INSULIN ASPART SLIDING SCALE 100 UNITS/ML UNIT SUBQ SCH (06:51)
[2017-12-12] MEDS: buPROPion XL 150 mg T 24 H PO SCH (08:18)
[2017-12-12] MEDS: Multivitamin Tab PO SCH (08:18)
== END 2017-12-12 12:20 | disposition home or self-care (01) | DRG 885 ==
LOC: ER 16:12 → GERO 18:00
PROVIDERS: ADMIT Psychiatry & Neurology Psychiatry; ATTEND Psychiatry & Neurology Psychiatry
DX: F20.0 Paranoid schizophrenia (principal); F03.91 Unspecified dementia, unspecified severity, with behavioral disturbance; E11.9 Type 2 diabetes mellitus without complications; I10 Essential (primary) hypertension; E78.5 Hyperlipidemia, unspecified; F17.210 Nicotine dependence, cigarettes, uncomplicated; K21.9 Gastro-esophageal reflux disease without esophagitis; M19.90 Unspecified osteoarthritis, unspecified site; Z83.3 Family history of diabetes mellitus; Z82.49 Family history of ischemic heart disease and other diseases of the circulatory system; Z88.8 Allergy status to other drugs, medicaments and biological substances; Z86.73 Personal history of transient ischemic attack (TIA), and cerebral infarction without residual deficits
CPT/HCPCS: 36415-UA; 80053-TC; 80061-TC; 80164-TC; 80307; 80320-TC; 80329-TC; 81001-TC; 82948-90; 83036-90; 84443-TC; 85025-TC; 86592-TC; 90899; 93005; 94760; J1815; J7051; Z7610

== ENCOUNTER 2018-07-27 16:31 | Inpatient (IN) | payer MEDICARE, MEDICAID ==
--- NOTE | 2018-07-27 18:27 | ED Physician Chart ---
ED Chief Complaint/HPI - Patient Information Date Seen:: 07/27/18 Time Seen:: 18:15 Chief Complaint:: behavioral problem History of Present Illness:: Patient sent here increased aggressive behavior and increased delusions Allergies:: Allergies Allergy/AdvReac Type Severity Reaction Status Date / Time fluphenazine Allergy Verified 11/10/17 17:12 trifluoperazine Allergy Verified 11/10/17 18:11 [From Stelazine] Historian:: Patient Review:: Nurse's Note Reviewed, Transfer documents Reviewed ED Review of Systems - Review of Systems General/Constitutional: No fever, No chills, No weight loss, No weakness, No diaphoresis, No edema, No loss of appetite Skin: No skin lesions, No rash, No bruising Head: No headache, No light-headedness Eyes: No loss of vision, No pain, No diplopia ENT: No earache, No nasal drainage, No sore throat, No tinnitus Neck: No neck pain, No swelling, No thyromegaly, No stiffness, No mass noted Cardio Vascular: No chest pain, No palpitations, No PND, No orthopnea, No edema Pulmonary: No SOB, No cough, No sputum, No wheezing GI: No nausea, No vomiting, No diarrhea, No pain, No melena, No hematochezia, No constipation, No hematemesis G/U: No dysuria, No frequency, No hematuria Musculoskeletal: No bone or joint pain, No back pain, No muscle pain Endocrine: No polyuria, No polydipsia Psychiatric: No depression, No anxiety, No suicidal ideation Hematopoietic: No bruising, No lymphadenopathy Allergic/Immuno: No urticaria, No angioedema Neurological: No syncope, No focal symptoms, No weakness, No paresthesia, No headache, No seizure, No dizziness, No confusion, No vertigo ED Past Medical History - Past Medical History Past Medical History: HTN, DM, CHF, Asthma/COPD, Dyslipidemia, Seizures, Arthritis, Other (status post pneumonia; cardiac arrhythmia; chronic renal disease; scoliosis; dementia; major depression; paranoid schizophrenia; cerebrovascular disease; pole or disorder) Family History: Other (not available) Social History: Non Smoker, Care Facility Surgical History: None, other (not available) Psychiatricy History: Depression, Schizophrenia, Dementia Medication: Reviewed Family Medical History - Family Member Mother History Unknown: Yes Ethnicity: Unknown Living Status: Unknown Hx Family Coronary Artery Disease: (NONE) Hx Family Congestive Heart Failure: (NONE) ED Labs/Radiology/EKG Results - Lab Results Results: Laboratory Results - last 24 hr 07/27/18 18:40 WBC 5.7 RBC 4.44 Hgb 12.9 Hct 38.2 L MCV 86.0 MCH 29.0 MCHC Differential 33.7 RDW 15.0 Plt Count 244 MPV 8.2 Neutrophils % 57.5 Lymphocytes % 30.2 Monocytes % 10.6 H Eosinophils % 1.0 Basophils % 0.7 Laboratory Results - last 24 hr 07/27/18 07/27/18 18:40 18:40 WBC 5.7 RBC 4.44 Hgb 12.9 Hct 38.2 L MCV 86.0 MCH 29.0 MCHC Differential 33.7 RDW 15.0 Plt Count 244 MPV 8.2 Neutrophils % 57.5 Lymphocytes % 30.2 Monocytes % 10.6 H Eosinophils % 1.0 Basophils % 0.7 Valproic Acid 27.5 L Laboratory Results - last 24 hr 07/27/18 07/27/18 07/27/18 18:40 18:40 18:40 WBC 5.7 RBC 4.44 Hgb 12.9 Hct 38.2 L MCV 86.0 MCH 29.0 MCHC Differential 33.7 RDW 15.0 Plt Count 244 MPV 8.2 Neutrophils % 57.5 Lymphocytes % 30.2 Monocytes % 10.6 H Eosinophils % 1.0 Basophils % 0.7 Sodium 135 L Potassium 4.1 Chloride 100 Carbon Dioxide 26.3 Anion Gap 12.8 BUN 17 Creatinine 0.9 Est GFR ( Amer) > 60.0 Est GFR (Non-Af Amer) > 60.0 BUN/Creatinine Ratio 18.9 Glucose 99 Calcium 9.1 Total Bilirubin 0.5 AST 19 ALT 11 Alkaline Phosphatase 48 Total Protein 6.8 Albumin 4.2 Globulin 2.6 Albumin/Globulin Ratio 1.6 Triglycerides 87 Cholesterol 223 H LDL Cholesterol Direct 135 HDL Cholesterol 64 Valproic Acid 27.5 L - EKG Interpretations Rate & Rhythm: normal sinus rhythm with a rate of 55; tall peaked T wave in lead V2 ED Septic Shock - . Is Septic Shock (SBP<90, OR Lactate>4 mmol\L) present?: No ED Reassessment (Disposition) - Reassessment Reassessment Condition:: Unchanged - Diagnosis Diagnosis:: Aggressive behavior; schizophrenia; dementia; depression - Patient Disposition Admitted to:: [facility] Admitting Medical Physician:: Thierry Bedoya Admitting Psych Physician:: Jeni Condition at Disposition:: Stable, Unchanged
[2018-07-27 18:47] LABS: % BASOPHILS 0.7 % (0.0-2.0); % LYMPHOCYTES 30.2 % (20.0-50.0); % MONOCYTES 10.6 % (2.0-10.0); % NEUTROPHILS 57.5 % (40.0-80.0); EOSINOPHILE ABSOLUTE 0.1 Th/cmm (0.1-0.4); HEMATOCRIT 38.2 % (41.0-60); HEMOGLOBIN 12.9 gm/dL (12-16); LYMPHOCYTE ABSOLUTE 1.7 Th/cmm (1.5-3.0); MEAN CORPUSCULAR HGB CONC 33.7 pg (28.0-36.0); MEAN PLATELET VOLUME 8.2 fl; MONOCYTE ABSOLUTE 0.6 Th/cmm (0.3-1.0); NEUTROPHILE ABSOLUTE 3.3 Th/cmm (1.8-8.0); PLATELET COUNT 244 Th/cmm (150-400); RED BLOOD COUNT 4.44 Mil/cmm (3.80-5.80); WHITE BLOOD COUNT 5.7 Th/cmm (4.8-10.8)
[2018-07-27 19:15] LABS: ALB/GLOB RATIO 1.6 (1.0-1.8); ALBUMIN 4.2 gm/dL (4.2-5.5); ALKALINE PHOSPHATASE 48 U/L (34-104); ANION GAP 12.8 (7.0-16.0); BILIRUBIN,TOTAL 0.5 mg/dL (0.3-1.0); BUN - UREA NITROGEN 17 mg/dL (7-25); CALCIUM SERUM 9.1 mg/dL (8.6-10.3); CARBON DIOXIDE 26.3 mEq/L (21.0-31.0); CHLORIDE 100 mEq/L (98-107); CHOLESTEROL 223 mg/dL (<200); CREATININE - SERUM 0.9 mg/dL (0.7-1.3); GFR AFRICAN-AMERICAN > 60.0 ml/min (>90); GFR NON AFRICAN-AMERICAN > 60.0 ml/min; GLUCOSE 99 mg/dL (70-105); HDL -HIGH DENSITY LIPOPROTEIN 64 mg/dL (23-92); POTASSIUM SERUM 4.1 mEq/L (3.5-5.1); SGOT 19 U/L (13-39); SGPT/ALT 11 U/L (7-52); SODIUM SERUM 135 mEq/L (136-145); TOTAL PROTEIN,SERUM 6.8 gm/dL (6.0-8.3); TRIGLYCERIDES 87 mg/dL (<150)
[2018-07-27 20:46] LABS: URINE SOURCE CLEAN C
[2018-07-27 20:49] LABS: URINE BILIRUBIN NEGATIVE (NEGATIVE); URINE BLOOD NEGATIVE (NEGATIVE); URINE GLUCOSE (UA) NEGATIVE (NEGATIVE); URINE KETONE NEGATIVE (NEGATIVE); URINE LEUKOCYTE ESTERASE NEGATIVE (NEGATIVE); URINE NITRATE NEGATIVE (NEGATIVE); URINE PROTEIN NEGATIVE (NEGATIVE); URINE UROBILINOGEN 0.2 E.U./dL (0.2 - 1.0)
[2018-07-27 20:54] LABS: URINE CLARITY CLEAR (CLEAR); URINE COLOR YELLOW; URINE MICROSCOPIC INDICATED? YES
[2018-07-27 21:00] LABS: URINE EPITHELIAL CELLS NONE SEEN /lpf (FEW); URINE RBC NONE SEEN /hpf (0-5); URINE WBC 0-2 /hpf (0-5)
[2018-07-27 21:01] LABS: URINE BACTERIA MODERATE /hpf (NONE SEEN)
[2018-07-27 21:28] VITALS: BP 114/75
[2018-07-27 22:16] LABS: CHOLESTEROL 226 mg/dL (<200); HDL -HIGH DENSITY LIPOPROTEIN 66 mg/dL (23-92); TRIGLYCERIDES 90 mg/dL (<150)
[2018-07-27] MEDS: Magnesium Hydroxide (MOM) 30 mL UDC PO SCH (23:56)
[2018-07-28] MEDS ORDERED: Non-Formulary Item 1 EA (Docusate Sodium [Docusate Sodium] 100 MG) PO SCH (09:00)
[2018-07-28] MEDS ORDERED: FAMOTIDINE 40 MG PO SCH (09:00)
[2018-07-28] MEDS ORDERED: VALPROIC ACID PO SCH (09:00)
--- NOTE | 2018-07-28 12:31 | History & Physical ---
ADMIT DATE: 07/27/2018 IDENTIFYING INFORMATION: The patient is a 68-year-old male. CHIEF COMPLAINT: No answer. HISTORY OF PRESENT ILLNESS: The patient was referred from the board and care where he was living at because of agitation, psychosis, and aggressive behavior. He believes that demons were after him. The patient has a ____ of seeing them many times in the past with multiple admissions here. He was at [facility]. The patient was unable to participate in meaningful conversation. When I tried talk to him, he is standing against the wall. He would not open his eyes or answer any of my questions. The patient is with long history of mental illness with multiple prior admissions to this facility because of psychosis with a history of being on Clozaril in the past. PAST PSYCHIATRIC HISTORY: Multiple prior admissions to this facility for similar reasons. I have been seeing him for a few years. MEDICATIONS: The patient was on ____, trifluoperazine with a history of seizure, was worked up on the medical unit in the past, but not put on any seizure medication. FAMILY AND SOCIAL HISTORY: The patient is single, not , no children. No family involvement. No substance abuse. MENTAL STATUS EXAMINATION: The patient is appropriately dressed, not very well groomed. He looked disheveled. He was alert. He was oriented. He was unable to tell me the date, where he is, why he is here, unable to carry on a conversation or make safe plan for self-care. He was acting aggressive. He apparently was delusional, feeling that demons were after him, unpredictable, impulsive, appears to be responding to internal stimuli, unable to test his memory and intelligence, however, from my previous evaluation, he seems to have average intelligence. Unable to test his memory because of his behavior. His insight about his illness is poor. Judgment is poor with his behavior, acting psychotic. IMPRESSION: Chronic paranoid schizophrenia with acute exacerbation, rule out schizoaffective disorder. MEDICAL DIAGNOSIS: Seizure disorder. He is currently on Levitra. PLAN: The patient was started back on his medications, Seroquel, Depakote. We will do group therapy, milieu therapy, and individual therapy. ESTIMATED LENGTH OF STAY: 3-7 days. I will have him on seizure precaution, fall precaution. DISCHARGE CRITERIA: Decreasing psychosis, agitation. After discharge, outpatient treatment. [facility]# [id number]
--- NOTE | 2018-07-28 17:41 | History & Physical ---
ADMIT DATE: 07/27/2018 HISTORY OF PRESENT ILLNESS: The patient is a 68-year-old male with long history of hypertension, seizure disorder, hyperlipidemia, and dementia; admitted to [facility]– [place][Note 2] [address] Peguero's service for evaluation and treatment. The patient has been agitated, not taking medication, confused, combative. No fever, no chills, no nausea, no vomiting. PAST MEDICAL HISTORY: Significant for hypertension, seizure disorder, hyperlipidemia, and dementia. PAST SURGICAL HISTORY: No recent surgery. ALLERGIES: FLUPHENAZINE and TRIFLUOPERAZINE. SOCIAL HISTORY: No smoking, no alcohol, no drug. FAMILY HISTORY: Noncontributory. MEDICATIONS. Follow admission reconciliation. REVIEW OF SYSTEMS: RENAL SYSTEM: No history of chronic renal disorder. CARDIOVASCULAR SYSTEM: He has history of hypertension. ENDOCRINE SYSTEM: No diabetes or thyroid problem. GASTROINTESTINAL SYSTEM: No upper or lower gastrointestinal bleed. NEUROLOGICAL SYSTEM: History of seizure disorder. MUSCULOSKELETAL SYSTEM: No muscular dystrophy. HEMATOLOGICAL SYSTEM: No bleeding tendency. RESPIRATORY SYSTEM: No asthma. GENITOURINARY: No dysuria or hematuria. PHYSICAL EXAMINATION: GENERAL: He is awake, alert, not coherent. VITAL SIGNS: Temperature 98.4, heart rate 93, and blood pressure 111/70. HEENT: Normocephalic. Pupils reactive to light and accommodation. Sclerae clear. NECK: Supple. Negative for lymphadenopathy, JVD, or bruit. CHEST: Entry of air bilateral normal. No rhonchi or wheezing. HEART: S1, S2 normal. No murmur, gallop rhythm. ABDOMEN: Soft, bowel sounds positive. EXTREMITIES: No edema. BACK: Vertebra. SKIN: Intact. GENITALIA AND RECTAL: Done by primary physician, no complaint. NEUROLOGIC: He is awake, alert, mildly confused. No focal motor or sensory deficit. Cranial nerves II through XII are intact. LABORATORY DATA: White blood cell 5.7, hemoglobin 12.9, hematocrit 38.2, and platelet 244. Sodium 135, potassium 4.1, BUN 17, creatinine 0.9, and cholesterol 226. ASSESSMENT: 1. Hypertension. 2. Hyperlipidemia. 3. Seizure disorder. 4. Dementia. 5. Psychosis. PLAN: The patient admitted to the hospital under Dr. Peguero's service. Medical problem addressed during hospitalization is psychosis. Medical problems addressed at discharge are hypertension, hyperlipidemia, and seizure disorder. The patient is medically stable for activity. Thank you, Dr. Peguero, for asking me to see your patient. The patient is a full code. JOB# [id number]
[2018-07-28] MEDS: Magnesium Hydroxide (MOM) 30 mL UDC PO SCH (21:32)
--- NOTE | 2018-07-29 16:55 | General Progress Note ---
Subjective - Review of Systems Service Date: 07/29/18 Subjective: walking in hallway avoiding contact refuses to answer and exam Objective - Results Result Diagrams: 07/27/18 18:40 07/27/18 18:40 Recent Labs: Laboratory Last Values WBC 5.7 Th/cmm (4.8-10.8) 07/27/18 18:40 RBC 4.44 Mil/cmm (3.80-5.80) 07/27/18 18:40 Hgb 12.9 gm/dL (12-16) 07/27/18 18:40 Hct 38.2 % (41.0-60) L 07/27/18 18:40 MCV 86.0 fl (80-99) 07/27/18 18:40 MCH 29.0 pg (27.0-31.0) 07/27/18 18:40 MCHC Differential 33.7 pg (28.0-36.0) 07/27/18 18:40 RDW 15.0 % (11.5-20.0) 07/27/18 18:40 Plt Count 244 Th/cmm (150-400) 07/27/18 18:40 MPV 8.2 fl 07/27/18 18:40 Neutrophils % 57.5 % (40.0-80.0) 07/27/18 18:40 Lymphocytes % 30.2 % (20.0-50.0) 07/27/18 18:40 Monocytes % 10.6 % (2.0-10.0) H 07/27/18 18:40 Eosinophils % 1.0 % (0.0-5.0) 07/27/18 18:40 Basophils % 0.7 % (0.0-2.0) 07/27/18 18:40 Sodium 135 mEq/L (136-145) L 07/27/18 18:40 Potassium 4.1 mEq/L (3.5-5.1) 07/27/18 18:40 Chloride 100 mEq/L (98-107) 07/27/18 18:40 Carbon Dioxide 26.3 mEq/L (21.0-31.0) 07/27/18 18:40 Anion Gap 12.8 (7.0-16.0) 07/27/18 18:40 BUN 17 mg/dL (7-25) 07/27/18 18:40 Creatinine 0.9 mg/dL (0.7-1.3) 07/27/18 18:40 Est GFR ( Amer) > 60.0 ml/min (>90) 07/27/18 18:40 Est GFR (Non-Af Amer) > 60.0 ml/min 07/27/18 18:40 BUN/Creatinine Ratio 18.9 07/27/18 18:40 Glucose 99 mg/dL (70-105) 07/27/18 18:40 Calcium 9.1 mg/dL (8.6-10.3) 07/27/18 18:40 Total Bilirubin 0.5 mg/dL (0.3-1.0) 07/27/18 18:40 AST 19 U/L (13-39) 07/27/18 18:40 ALT 11 U/L (7-52) 07/27/18 18:40 Alkaline Phosphatase 48 U/L (34-104) 07/27/18 18:40 Total Protein 6.8 gm/dL (6.0-8.3) 07/27/18 18:40 Albumin 4.2 gm/dL (4.2-5.5) 07/27/18 18:40 Globulin 2.6 gm/dL 07/27/18 18:40 Albumin/Globulin Ratio 1.6 (1.0-1.8) 07/27/18 18:40 Triglycerides 90 mg/dL (<150) 07/27/18 18:40 Cholesterol 226 mg/dL (<200) H 07/27/18 18:40 LDL Cholesterol Direct 138 mg/dL (75-193) 07/27/18 18:40 HDL Cholesterol 66 mg/dL (23-92) 07/27/18 18:40 TSH 2.17 uIU/ml (0.34-5.60) 07/27/18 18:40 Urine Source CLEAN C 07/27/18 18:30 Urine Color YELLOW 07/27/18 18:30 Urine Clarity CLEAR (CLEAR) 07/27/18 18:30 Urine pH 6.0 (4.6 - 8.0) 07/27/18 18:30 Ur Specific [place] <= 1.005 (1.005-1.030) 07/27/18 18:30 Urine Protein NEGATIVE mg/dL (NEGATIVE) 07/27/18 18:30 Urine Glucose (UA) NEGATIVE mg/dL (NEGATIVE) 07/27/18 18:30 Urine Ketones NEGATIVE mg/dL (NEGATIVE) 07/27/18 18:30 Urine Blood NEGATIVE (NEGATIVE) 07/27/18 18:30 Urine Nitrate NEGATIVE (NEGATIVE) 07/27/18 18:30 Urine Bilirubin NEGATIVE (NEGATIVE) 07/27/18 18:30 Urine Urobilinogen 0.2 E.U./dL (0.2 - 1.0) 07/27/18 18:30 Ur Leukocyte Esterase NEGATIVE (NEGATIVE) 07/27/18 18:30 Urine RBC NONE SEEN /hpf (0-5) 07/27/18 18:30 Urine WBC 0-2 /hpf (0-5) 07/27/18 18:30 Ur Epithelial Cells NONE SEEN /lpf (FEW) 07/27/18 18:30 Urine Bacteria MODERATE /hpf (NONE SEEN) H 07/27/18 18:30 Valproic Acid 27.5 ug/mL (50.0-100.0) L 07/27/18 18:40 - Physical Exam Vitals and I&O: Vital Signs Temp 98 F 07/29/18 14:00 Pulse 99 07/29/18 14:00 Resp 20 07/29/18 14:00 BP 133/75 07/29/18 14:00 Pulse Ox 97 07/29/18 14:00 Active Medications: Current Medications Acetaminophen (Tylenol) 650 mg PO Q4HR PRN PRN Reason: Pain (Mild) Stop: 09/25/18 22:04 Docusate Sodium (Colace) 100 mg PO BID [facility] Stop: 09/26/18 08:59 Last Admin: 07/29/18 09:06 Dose: 100 mg Famotidine (Pepcid) 40 mg PO DAILY JOEL Stop: 09/26/18 08:59 Last Admin: 07/29/18 09:06 Dose: 40 mg Levetiracetam (Keppra) 500 mg PO BID JOEL Stop: 09/26/18 08:59 Last Admin: 07/29/18 09:07 Dose: 500 mg Lorazepam (Ativan) 0.5 mg PO Q4HR PRN; Protocol PRN Reason: Anxiety Stop: 08/26/18 21:50 Last Admin: 07/29/18 15:42 Dose: 0.5 mg Magnesium Hydroxide (Milk Of Magnesia) 30 ml PO PRN [facility] Stop: 09/25/18 22:14 Last Admin: 07/28/18 21:32 Dose: Not Given Metoprolol Tartrate (Lopressor) 50 mg PO BID [facility] Stop: 09/26/18 08:59 Last Admin: 07/29/18 09:07 Dose: Not Given Mupirocin (Bactroban Oint) 1 appl NS BID [facility] Stop: 08/03/18 09:01 Quetiapine Fumarate 50 mg/ (Quetiapine Fumarate 25 mg) 75 mg PO BID [facility] Stop: 09/27/18 16:59 Valproate Sodium (Depakene) 500 mg PO BID [facility]; Protocol Stop: 09/27/18 16:59 Zolpidem Tartrate (Ambien) 5 mg PO HS PRN PRN Reason: Insomnia Stop: 09/25/18 21:50 Last Admin: 07/28/18 21:14 Dose: 5 mg General: No acute distress - Procedures Procedures: Procedures Procedure Code Date GROUP PSYCHOTHERAPY 07585 07/16/15 GROUP PSYCHOTHERAPY GZHZZZZ 07/16/15 INDIVID PSYCHOTHERAP NEC 94.39 09/06/13 OTHER GROUP THERAPY 94.44 05/03/14 RECREATIONAL THERAPY 93.81 08/25/12 Assessment/Plan - Assessment Assessment: 1.HTN. 2.DM 3.SEIZURE DISORDERED. 4.DEMENTIA. - Plan Plan: continue current treatment
--- NOTE | 2018-07-30 00:12 | Progress Notes ---
DATE: 07/29/2018 Case was discussed with staff of the patient, reviewed records. The patient apparently was able to talk yesterday, said he went to a board and care. He wants to go to [place], but when I told him I was planning to let him go [place], gets very upset. He continues to be paranoid, delusional, psychotic, looking disheveled, disorganized, internally preoccupied, easily agitated. He is compliant with the medication with no side effects, no sedation, no nausea and no extrapyramidal symptoms. He is taking a high dose of Seroquel. We will increase the dose to 75 mg twice a day to help with his psychotic symptoms, agitation. His lab work showed CBC with low hematocrit, high monocyte. The rest within normal range. Chemistry panel with low sodium. The rest within normal range with high cholesterol. The rest of lipid panel within normal range. Urinalysis with moderate bacteria and Depakote level 27.5, which is below acceptable range. His current dose of Depakote is 250 mg twice a day. I will be increasing the dose to 500 mg twice a day. No side effects from the medication, no sedation, no nausea and no extrapyramidal symptoms. We will continue to work with the patient in group therapy, milieu therapy and adjust the medications as needed. JOB# [id number]
--- NOTE | 2018-07-30 15:48 | General Progress Note ---
Subjective - Review of Systems Service Date: 07/30/18 Subjective: MORE AGREEABLE TODAY SMILES AND APPEARS CONTENT Objective - Results Result Diagrams: 07/27/18 18:40 07/27/18 18:40 Recent Labs: Laboratory Last Values WBC 5.7 Th/cmm (4.8-10.8) 07/27/18 18:40 RBC 4.44 Mil/cmm (3.80-5.80) 07/27/18 18:40 Hgb 12.9 gm/dL (12-16) 07/27/18 18:40 Hct 38.2 % (41.0-60) L 07/27/18 18:40 MCV 86.0 fl (80-99) 07/27/18 18:40 MCH 29.0 pg (27.0-31.0) 07/27/18 18:40 MCHC Differential 33.7 pg (28.0-36.0) 07/27/18 18:40 RDW 15.0 % (11.5-20.0) 07/27/18 18:40 Plt Count 244 Th/cmm (150-400) 07/27/18 18:40 MPV 8.2 fl 07/27/18 18:40 Neutrophils % 57.5 % (40.0-80.0) 07/27/18 18:40 Lymphocytes % 30.2 % (20.0-50.0) 07/27/18 18:40 Monocytes % 10.6 % (2.0-10.0) H 07/27/18 18:40 Eosinophils % 1.0 % (0.0-5.0) 07/27/18 18:40 Basophils % 0.7 % (0.0-2.0) 07/27/18 18:40 Sodium 135 mEq/L (136-145) L 07/27/18 18:40 Potassium 4.1 mEq/L (3.5-5.1) 07/27/18 18:40 Chloride 100 mEq/L (98-107) 07/27/18 18:40 Carbon Dioxide 26.3 mEq/L (21.0-31.0) 07/27/18 18:40 Anion Gap 12.8 (7.0-16.0) 07/27/18 18:40 BUN 17 mg/dL (7-25) 07/27/18 18:40 Creatinine 0.9 mg/dL (0.7-1.3) 07/27/18 18:40 Est GFR ( Amer) > 60.0 ml/min (>90) 07/27/18 18:40 Est GFR (Non-Af Amer) > 60.0 ml/min 07/27/18 18:40 BUN/Creatinine Ratio 18.9 07/27/18 18:40 Glucose 99 mg/dL (70-105) 07/27/18 18:40 Calcium 9.1 mg/dL (8.6-10.3) 07/27/18 18:40 Total Bilirubin 0.5 mg/dL (0.3-1.0) 07/27/18 18:40 AST 19 U/L (13-39) 07/27/18 18:40 ALT 11 U/L (7-52) 07/27/18 18:40 Alkaline Phosphatase 48 U/L (34-104) 07/27/18 18:40 Total Protein 6.8 gm/dL (6.0-8.3) 07/27/18 18:40 Albumin 4.2 gm/dL (4.2-5.5) 07/27/18 18:40 Globulin 2.6 gm/dL 07/27/18 18:40 Albumin/Globulin Ratio 1.6 (1.0-1.8) 07/27/18 18:40 Triglycerides 90 mg/dL (<150) 07/27/18 18:40 Cholesterol 226 mg/dL (<200) H 07/27/18 18:40 LDL Cholesterol Direct 138 mg/dL (75-193) 07/27/18 18:40 HDL Cholesterol 66 mg/dL (23-92) 07/27/18 18:40 TSH 2.17 uIU/ml (0.34-5.60) 07/27/18 18:40 Urine Source CLEAN C 07/27/18 18:30 Urine Color YELLOW 07/27/18 18:30 Urine Clarity CLEAR (CLEAR) 07/27/18 18:30 Urine pH 6.0 (4.6 - 8.0) 07/27/18 18:30 Ur Specific [place] <= 1.005 (1.005-1.030) 07/27/18 18:30 Urine Protein NEGATIVE mg/dL (NEGATIVE) 07/27/18 18:30 Urine Glucose (UA) NEGATIVE mg/dL (NEGATIVE) 07/27/18 18:30 Urine Ketones NEGATIVE mg/dL (NEGATIVE) 07/27/18 18:30 Urine Blood NEGATIVE (NEGATIVE) 07/27/18 18:30 Urine Nitrate NEGATIVE (NEGATIVE) 07/27/18 18:30 Urine Bilirubin NEGATIVE (NEGATIVE) 07/27/18 18:30 Urine Urobilinogen 0.2 E.U./dL (0.2 - 1.0) 07/27/18 18:30 Ur Leukocyte Esterase NEGATIVE (NEGATIVE) 07/27/18 18:30 Urine RBC NONE SEEN /hpf (0-5) 07/27/18 18:30 Urine WBC 0-2 /hpf (0-5) 07/27/18 18:30 Ur Epithelial Cells NONE SEEN /lpf (FEW) 07/27/18 18:30 Urine Bacteria MODERATE /hpf (NONE SEEN) H 07/27/18 18:30 Valproic Acid 27.5 ug/mL (50.0-100.0) L 07/27/18 18:40 RPR NONREACTIVE (NONREACTIVE) 07/27/18 18:40 - Physical Exam Vitals and I&O: Vital Signs Temp 98.5 F 07/30/18 14:33 Pulse 95 07/30/18 14:33 Resp 20 07/30/18 14:33 BP 100/68 07/30/18 14:33 Pulse Ox 99 07/30/18 14:33 Intake & Output 07/29/18 07/30/18 07/30/18 18:59 06:59 18:59 Intake Total 1200 240 Balance 1200 240 Intake: Oral 1200 240 Other: # Voids 2 # Bowel Movements 1 Active Medications: Current Medications Acetaminophen (Tylenol) 650 mg PO Q4HR PRN PRN Reason: Pain (Mild) Stop: 09/25/18 22:04 Docusate Sodium (Colace) 100 mg PO BID [facility] Stop: 09/26/18 08:59 Last Admin: 07/30/18 09:40 Dose: Not Given Famotidine (Pepcid) 40 mg PO DAILY [facility] Stop: 09/26/18 08:59 Last Admin: 07/30/18 09:40 Dose: Not Given Levetiracetam (Keppra) 500 mg PO BID [facility] Stop: 09/26/18 08:59 Last Admin: 07/30/18 09:41 Dose: Not Given Lorazepam (Ativan) 0.5 mg PO Q4HR PRN; Protocol PRN Reason: Anxiety Stop: 08/26/18 21:50 Last Admin: 07/29/18 15:42 Dose: 0.5 mg Magnesium Hydroxide (Milk Of Magnesia) 30 ml PO PRN [facility] Stop: 09/25/18 22:14 Last Admin: 07/28/18 21:32 Dose: Not Given Metoprolol Tartrate (Lopressor) 50 mg PO BID [facility] Stop: 09/26/18 08:59 Last Admin: 07/30/18 08:48 Dose: Not Given Mupirocin (Bactroban Oint) 1 appl NS BID [facility] Stop: 08/03/18 09:01 Last Admin: 07/30/18 09:41 Dose: Not Given Quetiapine Fumarate 50 mg/ (Quetiapine Fumarate 25 mg) 75 mg PO BID [facility] Stop: 09/27/18 16:59 Last Admin: 07/30/18 09:41 Dose: Not Given Valproate Sodium (Depakene) 500 mg PO BID [facility]; Protocol Stop: 09/27/18 16:59 Last Admin: 07/30/18 09:41 Dose: Not Given Zolpidem Tartrate (Ambien) 5 mg PO HS PRN PRN Reason: Insomnia Stop: 09/25/18 21:50 Last Admin: 07/28/18 21:14 Dose: 5 mg General: No acute distress HEENT: Atraumatic, PERRLA Neck: Supple, JVD Cardiovascular: Regular rate, Normal S1, Normal S2 Lungs: Clear to auscultation, Normal air movement Abdomen: Bowel sounds, Soft - Procedures Procedures: Procedures Procedure Code Date GROUP PSYCHOTHERAPY 25456 07/16/15 GROUP PSYCHOTHERAPY GZHZZZZ 07/16/15 INDIVID PSYCHOTHERAP NEC 94.39 09/06/13 OTHER GROUP THERAPY 94.44 05/03/14 RECREATIONAL THERAPY 93.81 08/25/12 Assessment/Plan - Assessment Assessment: 1.HTN. 2.DM 3.SEIZURE DISORDERED. 4.DEMENTIA. - Plan Plan: continue current treatment
--- NOTE | 2018-07-30 16:47 | Progress Notes ---
DATE: 07/30/2018 Case was discussed with staff of the patient, reviewed records. The patient refused his medication today. Today, he is not speaking, internally preoccupied, unable to follow direction or make safe plan for self-care. He continues to look disheveled. Continues to be unable to take care of himself, easily agitated. I increased his Seroquel dose yesterday to 75 mg twice a day; however, he did not take it today, but he is used to taking a higher dose of Seroquel in the past, so will be able to go back on his medications. His lab work showed hematocrit low at 38.2 and high monocyte. The rest within normal range. Chemistry panel with low sodium. The rest within normal range. He has high cholesterol. The rest of the panel within normal range. Urinalysis with moderate bacteria. Depakote level is 27.5. RPR nonreactive. Probably, he is not taking medication. We will encourage the patient to take his medication and we will continue to work with the patient in group therapy, milieu therapy, and adjust the medication as needed. JOB# [id number]
[2018-07-30] MEDS: Magnesium Hydroxide (MOM) 30 mL UDC PO SCH (22:03)
--- NOTE | 2018-07-31 20:37 | Internal Medicine Prog Note ---
Internal Medicine Subjective - Subjective Service Date: 07/31/18 Patient seen and examined:: with staff Patient is:: awake, verbal, in bed, talking, confused Per staff patient has:: no adverse event Internal Medicine Objective - Results Result Diagrams: 07/27/18 18:40 07/27/18 18:40 Recent Labs: Laboratory Last Values WBC 5.7 Th/cmm (4.8-10.8) 07/27/18 18:40 RBC 4.44 Mil/cmm (3.80-5.80) 07/27/18 18:40 Hgb 12.9 gm/dL (12-16) 07/27/18 18:40 Hct 38.2 % (41.0-60) L 07/27/18 18:40 MCV 86.0 fl (80-99) 07/27/18 18:40 MCH 29.0 pg (27.0-31.0) 07/27/18 18:40 MCHC Differential 33.7 pg (28.0-36.0) 07/27/18 18:40 RDW 15.0 % (11.5-20.0) 07/27/18 18:40 Plt Count 244 Th/cmm (150-400) 07/27/18 18:40 MPV 8.2 fl 07/27/18 18:40 Neutrophils % 57.5 % (40.0-80.0) 07/27/18 18:40 Lymphocytes % 30.2 % (20.0-50.0) 07/27/18 18:40 Monocytes % 10.6 % (2.0-10.0) H 07/27/18 18:40 Eosinophils % 1.0 % (0.0-5.0) 07/27/18 18:40 Basophils % 0.7 % (0.0-2.0) 07/27/18 18:40 Sodium 135 mEq/L (136-145) L 07/27/18 18:40 Potassium 4.1 mEq/L (3.5-5.1) 07/27/18 18:40 Chloride 100 mEq/L (98-107) 07/27/18 18:40 Carbon Dioxide 26.3 mEq/L (21.0-31.0) 07/27/18 18:40 Anion Gap 12.8 (7.0-16.0) 07/27/18 18:40 BUN 17 mg/dL (7-25) 07/27/18 18:40 Creatinine 0.9 mg/dL (0.7-1.3) 07/27/18 18:40 Est GFR ( Amer) > 60.0 ml/min (>90) 07/27/18 18:40 Est GFR (Non-Af Amer) > 60.0 ml/min 07/27/18 18:40 BUN/Creatinine Ratio 18.9 07/27/18 18:40 Glucose 99 mg/dL (70-105) 07/27/18 18:40 Calcium 9.1 mg/dL (8.6-10.3) 07/27/18 18:40 Total Bilirubin 0.5 mg/dL (0.3-1.0) 07/27/18 18:40 AST 19 U/L (13-39) 07/27/18 18:40 ALT 11 U/L (7-52) 07/27/18 18:40 Alkaline Phosphatase 48 U/L (34-104) 07/27/18 18:40 Total Protein 6.8 gm/dL (6.0-8.3) 07/27/18 18:40 Albumin 4.2 gm/dL (4.2-5.5) 07/27/18 18:40 Globulin 2.6 gm/dL 07/27/18 18:40 Albumin/Globulin Ratio 1.6 (1.0-1.8) 07/27/18 18:40 Triglycerides 90 mg/dL (<150) 07/27/18 18:40 Cholesterol 226 mg/dL (<200) H 07/27/18 18:40 LDL Cholesterol Direct 138 mg/dL (75-193) 07/27/18 18:40 HDL Cholesterol 66 mg/dL (23-92) 07/27/18 18:40 TSH 2.17 uIU/ml (0.34-5.60) 07/27/18 18:40 Urine Source CLEAN C 07/27/18 18:30 Urine Color YELLOW 07/27/18 18:30 Urine Clarity CLEAR (CLEAR) 07/27/18 18:30 Urine pH 6.0 (4.6 - 8.0) 07/27/18 18:30 Ur Specific [place] <= 1.005 (1.005-1.030) 07/27/18 18:30 Urine Protein NEGATIVE mg/dL (NEGATIVE) 07/27/18 18:30 Urine Glucose (UA) NEGATIVE mg/dL (NEGATIVE) 07/27/18 18:30 Urine Ketones NEGATIVE mg/dL (NEGATIVE) 07/27/18 18:30 Urine Blood NEGATIVE (NEGATIVE) 07/27/18 18:30 Urine Nitrate NEGATIVE (NEGATIVE) 07/27/18 18:30 Urine Bilirubin NEGATIVE (NEGATIVE) 07/27/18 18:30 Urine Urobilinogen 0.2 E.U./dL (0.2 - 1.0) 07/27/18 18:30 Ur Leukocyte Esterase NEGATIVE (NEGATIVE) 07/27/18 18:30 Urine RBC NONE SEEN /hpf (0-5) 07/27/18 18:30 Urine WBC 0-2 /hpf (0-5) 07/27/18 18:30 Ur Epithelial Cells NONE SEEN /lpf (FEW) 07/27/18 18:30 Urine Bacteria MODERATE /hpf (NONE SEEN) H 07/27/18 18:30 Valproic Acid 27.5 ug/mL (50.0-100.0) L 07/27/18 18:40 RPR NONREACTIVE (NONREACTIVE) 07/27/18 18:40 - Physical Exam Vitals and I&O: Vital Signs Temp 98.4 F 07/31/18 18:41 Pulse 64 07/31/18 18:41 Resp 20 07/31/18 18:41 BP 92/60 07/31/18 18:41 Pulse Ox 100 07/31/18 18:41 Intake & Output 07/31/18 07/31/18 08/01/18 06:59 18:59 06:59 Intake Total 420 Balance 420 Intake: Oral 420 Other: # Voids 2 # Bowel Movements 0 Active Medications: Current Medications Acetaminophen (Tylenol) 650 mg PO Q4HR PRN PRN Reason: Pain (Mild) Stop: 09/25/18 22:04 Docusate Sodium (Colace) 100 mg PO BID [facility] Stop: 09/26/18 08:59 Last Admin: 07/31/18 16:50 Dose: 100 mg Famotidine (Pepcid) 40 mg PO DAILY [facility] Stop: 09/26/18 08:59 Last Admin: 07/31/18 09:22 Dose: 40 mg Levetiracetam (Keppra) 500 mg PO BID [facility] Stop: 09/26/18 08:59 Last Admin: 07/31/18 16:50 Dose: 500 mg Lorazepam (Ativan) 0.5 mg PO Q4HR PRN; Protocol PRN Reason: Anxiety Stop: 08/26/18 21:50 Last Admin: 07/30/18 20:25 Dose: 0.5 mg Magnesium Hydroxide (Milk Of Magnesia) 30 ml PO PRN [facility] Stop: 09/25/18 22:14 Last Admin: 07/30/18 22:03 Dose: 30 ml Metoprolol Tartrate (Lopressor) 50 mg PO BID [facility] Stop: 09/26/18 08:59 Last Admin: 07/31/18 16:51 Dose: Not Given Mupirocin (Bactroban Oint) 1 appl NS BID [facility] Stop: 08/03/18 09:01 Last Admin: 07/31/18 16:51 Dose: 1 appl Quetiapine Fumarate (Seroquel) 100 mg PO BID [facility] Stop: 09/29/18 16:59 Last Admin: 07/31/18 16:51 Dose: 100 mg Valproate Sodium (Depakene) 500 mg PO BID [facility]; Protocol Stop: 09/27/18 16:59 Last Admin: 07/31/18 16:51 Dose: 500 mg Zolpidem Tartrate (Ambien) 5 mg PO HS PRN PRN Reason: Insomnia Stop: 09/25/18 21:50 Last Admin: 07/30/18 20:25 Dose: 5 mg General: demented HEENT: NC/AT, PERRLA, EOMI, anicteric sclerae, throat clear Neck: Supple, No JVD, No thyromegaly, +2 carotid pulse wo bruit, No LAD Lungs: CTAB Cardiovascular: RRR, Normal S1, Normal S2, without murmur Abdomen: soft, non-tender, non-distended Neurological: no change - Procedures Procedures: Procedures Procedure Code Date GROUP PSYCHOTHERAPY 65975 07/16/15 GROUP PSYCHOTHERAPY GZHZZZZ 07/16/15 INDIVID PSYCHOTHERAP NEC 94.39 09/06/13 OTHER GROUP THERAPY 94.44 05/03/14 RECREATIONAL THERAPY 93.81 08/25/12 Internal Medicine Assmt/Plan - Assessment Assessment: 1.HTN. 2.HYPERLIPIDEMIA. 3.SEIZURE DISORDERED. 4.DEMENTIA. - Plan Plan: CONTINUE ON CURRENT MEDICATION AND DIET. Nutritional Asmnt/Malnutr-PDOC - Dietary Evaluation Malnutrition Findings (Please click <Entered> for more info): Nutritional Asmnt/Malnutrition Start: 07/31/18 13: 00 Text: Status: Complete Freq: Protocol: Document 07/31/18 13:00 DELISA (Rec: 07/31/18 13:08 DELISA [email or web address]) Nutritional Asmnt/Malnutrition Patient General Information Nutritional Screening Moderate Risk Diagnosis psychosis Pertinent Medical Hx/Surgical Hx HTN, DM, CHF, asthma/COPD, dyslipidemia, seizures, arthritis, s/p pneumonia, cardiac arrhythmia, chronic renal disease, scoliosis, dementia, major depression, paranoid schizophrenia, cerebrovascular disease Subjective Information Pt sitting in rec room at time of visit. Pt appeared anxious and walked away when approached. Nursing noted PO intake: 75-100%. Current Diet Order/ Nutrition Support [facility] soft ground, MAURA, CCHO, low fat Pertinent Medications seroquel, colace, pepcid, keppra, MOM Pertinent Labs 07/27: Na 135, Cholesterol 223 -226, glucose 99 Nutritional Hx/Data Height 1.57 m Height (Calculated Centimeters) 157.5 Current Weight (lbs) 58.967 kg Weight (Calculated Kilograms) 59.0 Weight (Calculated Grams) 52962.0 [place] Body Weight 118 lb Body Mass Index (BMI) 23.8 Weight Status Approriate GI Symptoms GI Symptoms None Last BM 07/30 Difficult in: None Food Allergies No Skin Integrity/Comment: intact, rosa 19 Current %PO Good (75-100%) Estimated Nutritional Goals BEE in Kcals: Using Current wt Calories/Kcals/Kg 25-30 Kcals Calculated 8950-4599 Protein: Using Current wt Protein g/k.0 Protein Calculated 59 g Fluid: ml 9529-0196 (1 ml/kcal) Nutritional Problem No current Nutrition Prob Problem no nutrition dx at this time Malnutrition Alert Is there a minimum of two criteria No selected? Query Text:Check all the applicable criteria. A minimum of two criteria are recommended for diagnosis of either severe or non-severe malnutrition. Malnutrition Related to Morbid Obesity Malnutrition related to morbid obesity No Intervention/Recommendation Comments 1. Consider checking HgA1C to assess need for CCHO diet 2. Continue with [facility] soft ground, MAURA, low fat diet as ordered 3. Monitor PO intake, wt, labs and skin integrity 4. F/U as low risk in 7 days, 08/07 Expected Outcomes/Goals Expected Outcomes/Goals 1. PO intake to continue meeting at least 75% of all meals 2. Wt stability, skin to remain intact, labs to approach WNL Reviewed by Gloria Becker RD
[2018-07-31] MEDS ORDERED: Magnesium Hydroxide (MOM) 30 mL UDC PO PRN (22:12)
--- NOTE | 2018-08-01 00:29 | Progress Notes ---
DATE: 07/31/2018 Case was discussed with staff of the patient, reviewed records. The patient continues to be selectively mute, easily agitated; however, he took his medication today and was able to eat, but he continues to be psychotic, paranoid, internally preoccupied. Continues to be unable to make safe plan for self-care, unpredictable, impulsive, needing redirection. We will continue to work with the patient in group therapy, milieu therapy, and adjust the medication as needed. JOB# [id number]
--- NOTE | 2018-08-01 15:30 | Progress Notes ---
DATE: 08/01/2018 Case was discussed with staff of the patient, reviewed records. The patient continues to be internally preoccupied, not answering questions, easily agitated, but he is compliant with the medication with no side effect, which is the progress. He continues to have poor insight, responding to internal stimuli. I did increase his Seroquel dose yesterday to 100 mg twice a day and also Depakote. He is on Depakote 500 mg twice a day that was increased. I will be checking level. His Depakote level to make sure he is compliant with the medication and adequate help improve his symptoms. His agitation, impulsivity and so far no side effects with the medication, no sedation, no nausea, no extrapyramidal symptoms. I will continue the patient in group therapy, milieu therapy, adjust the medication as needed. JOB# [id number]
--- NOTE | 2018-08-01 19:28 | Internal Medicine Prog Note ---
Internal Medicine Subjective - Subjective Service Date: 08/01/18 Patient seen and examined:: with staff Patient is:: awake, verbal, in bed, talking, confused Per staff patient has:: no adverse event Internal Medicine Objective - Results Result Diagrams: 07/27/18 18:40 07/27/18 18:40 Recent Labs: Laboratory Last Values WBC 5.7 Th/cmm (4.8-10.8) 07/27/18 18:40 RBC 4.44 Mil/cmm (3.80-5.80) 07/27/18 18:40 Hgb 12.9 gm/dL (12-16) 07/27/18 18:40 Hct 38.2 % (41.0-60) L 07/27/18 18:40 MCV 86.0 fl (80-99) 07/27/18 18:40 MCH 29.0 pg (27.0-31.0) 07/27/18 18:40 MCHC Differential 33.7 pg (28.0-36.0) 07/27/18 18:40 RDW 15.0 % (11.5-20.0) 07/27/18 18:40 Plt Count 244 Th/cmm (150-400) 07/27/18 18:40 MPV 8.2 fl 07/27/18 18:40 Neutrophils % 57.5 % (40.0-80.0) 07/27/18 18:40 Lymphocytes % 30.2 % (20.0-50.0) 07/27/18 18:40 Monocytes % 10.6 % (2.0-10.0) H 07/27/18 18:40 Eosinophils % 1.0 % (0.0-5.0) 07/27/18 18:40 Basophils % 0.7 % (0.0-2.0) 07/27/18 18:40 Sodium 135 mEq/L (136-145) L 07/27/18 18:40 Potassium 4.1 mEq/L (3.5-5.1) 07/27/18 18:40 Chloride 100 mEq/L (98-107) 07/27/18 18:40 Carbon Dioxide 26.3 mEq/L (21.0-31.0) 07/27/18 18:40 Anion Gap 12.8 (7.0-16.0) 07/27/18 18:40 BUN 17 mg/dL (7-25) 07/27/18 18:40 Creatinine 0.9 mg/dL (0.7-1.3) 07/27/18 18:40 Est GFR ( Amer) > 60.0 ml/min (>90) 07/27/18 18:40 Est GFR (Non-Af Amer) > 60.0 ml/min 07/27/18 18:40 BUN/Creatinine Ratio 18.9 07/27/18 18:40 Glucose 99 mg/dL (70-105) 07/27/18 18:40 Calcium 9.1 mg/dL (8.6-10.3) 07/27/18 18:40 Total Bilirubin 0.5 mg/dL (0.3-1.0) 07/27/18 18:40 AST 19 U/L (13-39) 07/27/18 18:40 ALT 11 U/L (7-52) 07/27/18 18:40 Alkaline Phosphatase 48 U/L (34-104) 07/27/18 18:40 Total Protein 6.8 gm/dL (6.0-8.3) 07/27/18 18:40 Albumin 4.2 gm/dL (4.2-5.5) 07/27/18 18:40 Globulin 2.6 gm/dL 07/27/18 18:40 Albumin/Globulin Ratio 1.6 (1.0-1.8) 07/27/18 18:40 Triglycerides 90 mg/dL (<150) 07/27/18 18:40 Cholesterol 226 mg/dL (<200) H 07/27/18 18:40 LDL Cholesterol Direct 138 mg/dL (75-193) 07/27/18 18:40 HDL Cholesterol 66 mg/dL (23-92) 07/27/18 18:40 TSH 2.17 uIU/ml (0.34-5.60) 07/27/18 18:40 Urine Source CLEAN C 07/27/18 18:30 Urine Color YELLOW 07/27/18 18:30 Urine Clarity CLEAR (CLEAR) 07/27/18 18:30 Urine pH 6.0 (4.6 - 8.0) 07/27/18 18:30 Ur Specific [place] <= 1.005 (1.005-1.030) 07/27/18 18:30 Urine Protein NEGATIVE mg/dL (NEGATIVE) 07/27/18 18:30 Urine Glucose (UA) NEGATIVE mg/dL (NEGATIVE) 07/27/18 18:30 Urine Ketones NEGATIVE mg/dL (NEGATIVE) 07/27/18 18:30 Urine Blood NEGATIVE (NEGATIVE) 07/27/18 18:30 Urine Nitrate NEGATIVE (NEGATIVE) 07/27/18 18:30 Urine Bilirubin NEGATIVE (NEGATIVE) 07/27/18 18:30 Urine Urobilinogen 0.2 E.U./dL (0.2 - 1.0) 07/27/18 18:30 Ur Leukocyte Esterase NEGATIVE (NEGATIVE) 07/27/18 18:30 Urine RBC NONE SEEN /hpf (0-5) 07/27/18 18:30 Urine WBC 0-2 /hpf (0-5) 07/27/18 18:30 Ur Epithelial Cells NONE SEEN /lpf (FEW) 07/27/18 18:30 Urine Bacteria MODERATE /hpf (NONE SEEN) H 07/27/18 18:30 Valproic Acid 83.2 ug/mL (50.0-100.0) 08/01/18 12:45 RPR NONREACTIVE (NONREACTIVE) 07/27/18 18:40 - Physical Exam Vitals and I&O: Vital Signs Temp 96.7 F 08/01/18 18:55 Pulse 91 08/01/18 18:55 Resp 18 08/01/18 18:55 BP 94/68 08/01/18 18:55 Pulse Ox 97 07/31/18 21:05 Intake & Output 08/01/18 08/01/18 08/02/18 06:59 18:59 06:59 Intake Total 240 Balance 240 Intake: Oral 240 Other: # Voids 2 Active Medications: Current Medications Acetaminophen (Tylenol) 650 mg PO Q4HR PRN PRN Reason: Pain (Mild) Stop: 09/25/18 22:04 Docusate Sodium (Colace) 100 mg PO BID [facility] Stop: 09/26/18 08:59 Last Admin: 08/01/18 17:22 Dose: 100 mg Famotidine (Pepcid) 40 mg PO DAILY [facility] Stop: 09/26/18 08:59 Last Admin: 08/01/18 09:34 Dose: 40 mg Levetiracetam (Keppra) 500 mg PO BID [facility] Stop: 09/26/18 08:59 Last Admin: 08/01/18 17:22 Dose: 500 mg Lorazepam (Ativan) 0.5 mg PO Q4HR PRN; Protocol PRN Reason: Anxiety Stop: 08/26/18 21:50 Last Admin: 07/30/18 20:25 Dose: 0.5 mg Magnesium Hydroxide (Milk Of Magnesia) 30 ml PO HS PRN PRN Reason: constipation Stop: 09/29/18 22:11 Metoprolol Tartrate (Lopressor) 50 mg PO BID [facility] Stop: 09/26/18 08:59 Last Admin: 08/01/18 17:22 Dose: Not Given Mupirocin (Bactroban Oint) 1 appl NS BID [facility] Stop: 08/03/18 09:01 Last Admin: 08/01/18 17:22 Dose: 1 appl Quetiapine Fumarate (Seroquel) 100 mg PO BID [facility] Stop: 09/29/18 16:59 Last Admin: 08/01/18 17:22 Dose: 100 mg Valproate Sodium (Depakene) 500 mg PO BID [facility]; Protocol Stop: 09/27/18 16:59 Last Admin: 08/01/18 17:22 Dose: 500 mg Zolpidem Tartrate (Ambien) 5 mg PO HS PRN PRN Reason: Insomnia Stop: 09/25/18 21:50 Last Admin: 07/30/18 20:25 Dose: 5 mg General: demented HEENT: NC/AT, PERRLA, EOMI, anicteric sclerae, throat clear Neck: Supple, No JVD, No thyromegaly, +2 carotid pulse wo bruit, No LAD Lungs: CTAB Cardiovascular: RRR, Normal S1, Normal S2, without murmur Abdomen: soft, non-tender, non-distended Neurological: no change - Procedures Procedures: Procedures Procedure Code Date GROUP PSYCHOTHERAPY 18584 07/16/15 GROUP PSYCHOTHERAPY GZHZZZZ 07/16/15 INDIVID PSYCHOTHERAP NEC 94.39 09/06/13 OTHER GROUP THERAPY 94.44 05/03/14 RECREATIONAL THERAPY 93.81 08/25/12 Internal Medicine Assmt/Plan - Assessment Assessment: 1.HTN. 2.HYPERLIPIDEMIA. 3.SEIZURE DISORDERED. 4.DEMENTIA. - Plan Plan: CONTINUE ON CURRENT MEDICATION AND DIET. Nutritional Asmnt/Malnutr-PDOC - Dietary Evaluation Malnutrition Findings (Please click <Entered> for more info): Nutritional Asmnt/Malnutrition Start: 07/31/18 13: 00 Text: Status: Complete Freq: Protocol: Document 07/31/18 13:00 DELISA (Rec: 07/31/18 13:08 DELISA [email or web address]) Nutritional Asmnt/Malnutrition Patient General Information Nutritional Screening Moderate Risk Diagnosis psychosis Pertinent Medical Hx/Surgical Hx HTN, DM, CHF, asthma/COPD, dyslipidemia, seizures, arthritis, s/p pneumonia, cardiac arrhythmia, chronic renal disease, scoliosis, dementia, major depression, paranoid schizophrenia, cerebrovascular disease Subjective Information Pt sitting in rec room at time of visit. Pt appeared anxious and walked away when approached. Nursing noted PO intake: 75-100%. Current Diet Order/ Nutrition Support [facility] soft ground, MAURA, CCHO, low fat Pertinent Medications seroquel, colace, pepcid, keppra, MOM Pertinent Labs 07/27: Na 135, Cholesterol 223 -226, glucose 99 Nutritional Hx/Data Height 1.57 m Height (Calculated Centimeters) 157.5 Current Weight (lbs) 58.967 kg Weight (Calculated Kilograms) 59.0 Weight (Calculated Grams) 39946.0 [place] Body Weight 118 lb Body Mass Index (BMI) 23.8 Weight Status Approriate GI Symptoms GI Symptoms None Last BM 07/30 Difficult in: None Food Allergies No Skin Integrity/Comment: oly rosa 19 Current %PO Good (75-100%) Estimated Nutritional Goals BEE in Kcals: Using Current wt Calories/Kcals/Kg 25-30 Kcals Calculated 4247-0992 Protein: Using Current wt Protein g/k.0 Protein Calculated 59 g Fluid: ml 1225-2775 (1 ml/kcal) Nutritional Problem No current Nutrition Prob Problem no nutrition dx at this time Malnutrition Alert Is there a minimum of two criteria No selected? Query Text:Check all the applicable criteria. A minimum of two criteria are recommended for diagnosis of either severe or non-severe malnutrition. Malnutrition Related to Morbid Obesity Malnutrition related to morbid obesity No Intervention/Recommendation Comments 1. Consider checking HgA1C to assess need for CCHO diet 2. Continue with [facility] soft ground, MAURA, low fat diet as ordered 3. Monitor PO intake, wt, labs and skin integrity 4. F/U as low risk in 7 days, 08/07 Expected Outcomes/Goals Expected Outcomes/Goals 1. PO intake to continue meeting at least 75% of all meals 2. Wt stability, skin to remain intact, labs to approach WNL Reviewed by Gloria Becker RD
--- NOTE | 2018-08-02 20:22 | Internal Medicine Prog Note ---
Internal Medicine Subjective - Subjective Service Date: 08/02/18 Patient seen and examined:: with staff Patient is:: awake, verbal, in bed, talking, confused Per staff patient has:: no adverse event Internal Medicine Objective - Results Result Diagrams: 07/27/18 18:40 07/27/18 18:40 Recent Labs: Laboratory Last Values WBC 5.7 Th/cmm (4.8-10.8) 07/27/18 18:40 RBC 4.44 Mil/cmm (3.80-5.80) 07/27/18 18:40 Hgb 12.9 gm/dL (12-16) 07/27/18 18:40 Hct 38.2 % (41.0-60) L 07/27/18 18:40 MCV 86.0 fl (80-99) 07/27/18 18:40 MCH 29.0 pg (27.0-31.0) 07/27/18 18:40 MCHC Differential 33.7 pg (28.0-36.0) 07/27/18 18:40 RDW 15.0 % (11.5-20.0) 07/27/18 18:40 Plt Count 244 Th/cmm (150-400) 07/27/18 18:40 MPV 8.2 fl 07/27/18 18:40 Neutrophils % 57.5 % (40.0-80.0) 07/27/18 18:40 Lymphocytes % 30.2 % (20.0-50.0) 07/27/18 18:40 Monocytes % 10.6 % (2.0-10.0) H 07/27/18 18:40 Eosinophils % 1.0 % (0.0-5.0) 07/27/18 18:40 Basophils % 0.7 % (0.0-2.0) 07/27/18 18:40 Sodium 135 mEq/L (136-145) L 07/27/18 18:40 Potassium 4.1 mEq/L (3.5-5.1) 07/27/18 18:40 Chloride 100 mEq/L (98-107) 07/27/18 18:40 Carbon Dioxide 26.3 mEq/L (21.0-31.0) 07/27/18 18:40 Anion Gap 12.8 (7.0-16.0) 07/27/18 18:40 BUN 17 mg/dL (7-25) 07/27/18 18:40 Creatinine 0.9 mg/dL (0.7-1.3) 07/27/18 18:40 Est GFR ( Amer) > 60.0 ml/min (>90) 07/27/18 18:40 Est GFR (Non-Af Amer) > 60.0 ml/min 07/27/18 18:40 BUN/Creatinine Ratio 18.9 07/27/18 18:40 Glucose 99 mg/dL (70-105) 07/27/18 18:40 Calcium 9.1 mg/dL (8.6-10.3) 07/27/18 18:40 Total Bilirubin 0.5 mg/dL (0.3-1.0) 07/27/18 18:40 AST 19 U/L (13-39) 07/27/18 18:40 ALT 11 U/L (7-52) 07/27/18 18:40 Alkaline Phosphatase 48 U/L (34-104) 07/27/18 18:40 Total Protein 6.8 gm/dL (6.0-8.3) 07/27/18 18:40 Albumin 4.2 gm/dL (4.2-5.5) 07/27/18 18:40 Globulin 2.6 gm/dL 07/27/18 18:40 Albumin/Globulin Ratio 1.6 (1.0-1.8) 07/27/18 18:40 Triglycerides 90 mg/dL (<150) 07/27/18 18:40 Cholesterol 226 mg/dL (<200) H 07/27/18 18:40 LDL Cholesterol Direct 138 mg/dL (75-193) 07/27/18 18:40 HDL Cholesterol 66 mg/dL (23-92) 07/27/18 18:40 TSH 2.17 uIU/ml (0.34-5.60) 07/27/18 18:40 Urine Source CLEAN C 07/27/18 18:30 Urine Color YELLOW 07/27/18 18:30 Urine Clarity CLEAR (CLEAR) 07/27/18 18:30 Urine pH 6.0 (4.6 - 8.0) 07/27/18 18:30 Ur Specific [place] <= 1.005 (1.005-1.030) 07/27/18 18:30 Urine Protein NEGATIVE mg/dL (NEGATIVE) 07/27/18 18:30 Urine Glucose (UA) NEGATIVE mg/dL (NEGATIVE) 07/27/18 18:30 Urine Ketones NEGATIVE mg/dL (NEGATIVE) 07/27/18 18:30 Urine Blood NEGATIVE (NEGATIVE) 07/27/18 18:30 Urine Nitrate NEGATIVE (NEGATIVE) 07/27/18 18:30 Urine Bilirubin NEGATIVE (NEGATIVE) 07/27/18 18:30 Urine Urobilinogen 0.2 E.U./dL (0.2 - 1.0) 07/27/18 18:30 Ur Leukocyte Esterase NEGATIVE (NEGATIVE) 07/27/18 18:30 Urine RBC NONE SEEN /hpf (0-5) 07/27/18 18:30 Urine WBC 0-2 /hpf (0-5) 07/27/18 18:30 Ur Epithelial Cells NONE SEEN /lpf (FEW) 07/27/18 18:30 Urine Bacteria MODERATE /hpf (NONE SEEN) H 07/27/18 18:30 Valproic Acid 83.2 ug/mL (50.0-100.0) 08/01/18 12:45 RPR NONREACTIVE (NONREACTIVE) 07/27/18 18:40 - Physical Exam Vitals and I&O: Vital Signs Temp 97.3 F 08/02/18 14:00 Pulse 93 08/02/18 16:31 Resp 20 08/02/18 14:00 BP 105/65 08/02/18 16:31 Pulse Ox 97 08/02/18 14:00 Intake & Output 08/02/18 08/02/18 08/03/18 06:59 18:59 06:59 Intake Total 300 900 Balance 300 900 Intake: Oral 300 900 Other: # Voids 2 4 # Bowel Movements 1 1 Active Medications: Current Medications Acetaminophen (Tylenol) 650 mg PO Q4HR PRN PRN Reason: Pain (Mild) Stop: 09/25/18 22:04 Docusate Sodium (Colace) 100 mg PO BID [facility] Stop: 09/26/18 08:59 Last Admin: 08/02/18 16:32 Dose: 100 mg Famotidine (Pepcid) 40 mg PO DAILY [facility] Stop: 09/26/18 08:59 Last Admin: 08/02/18 08:08 Dose: 40 mg Levetiracetam (Keppra) 500 mg PO BID [facility] Stop: 09/26/18 08:59 Last Admin: 08/02/18 16:32 Dose: 500 mg Lorazepam (Ativan) 0.5 mg PO Q4HR PRN; Protocol PRN Reason: Anxiety Stop: 08/26/18 21:50 Last Admin: 08/02/18 16:30 Dose: 0.5 mg Magnesium Hydroxide (Milk Of Magnesia) 30 ml PO HS PRN PRN Reason: constipation Stop: 09/29/18 22:11 Metoprolol Tartrate (Lopressor) 50 mg PO BID [facility] Stop: 09/26/18 08:59 Last Admin: 08/02/18 16:31 Dose: Not Given Mupirocin (Bactroban Oint) 1 appl NS BID [facility] Stop: 08/03/18 09:01 Last Admin: 08/02/18 16:33 Dose: 1 appl Quetiapine Fumarate 100 mg/ (Quetiapine Fumarate 25 mg) 125 mg PO BID [facility] Stop: 10/01/18 16:59 Last Admin: 08/02/18 16:30 Dose: 125 mg Valproate Sodium (Depakene) 500 mg PO BID [facility]; Protocol Stop: 09/27/18 16:59 Last Admin: 08/02/18 16:26 Dose: 500 mg Zolpidem Tartrate (Ambien) 5 mg PO HS PRN PRN Reason: Insomnia Stop: 09/25/18 21:50 Last Admin: 07/30/18 20:25 Dose: 5 mg General: demented HEENT: NC/AT, PERRLA, EOMI, anicteric sclerae, throat clear Neck: Supple, No JVD, No thyromegaly, +2 carotid pulse wo bruit, No LAD Lungs: CTAB Cardiovascular: RRR, Normal S1, Normal S2, without murmur Abdomen: soft, non-tender, non-distended Neurological: no change - Procedures Procedures: Procedures Procedure Code Date GROUP PSYCHOTHERAPY 81244 07/16/15 GROUP PSYCHOTHERAPY GZHZZZZ 07/16/15 INDIVID PSYCHOTHERAP NEC 94.39 09/06/13 OTHER GROUP THERAPY 94.44 05/03/14 RECREATIONAL THERAPY 93.81 08/25/12 Internal Medicine Assmt/Plan - Assessment Assessment: 1.HTN. 2.HYPERLIPIDEMIA. 3.SEIZURE DISORDERED. 4.DEMENTIA. - Plan Plan: CONTINUE ON CURRENT MEDICATION AND DIET. Nutritional Asmnt/Malnutr-PDOC - Dietary Evaluation Malnutrition Findings (Please click <Entered> for more info): Nutritional Asmnt/Malnutrition Start: 07/31/18 13: 00 Text: Status: Complete Freq: Protocol: Document 07/31/18 13:00 DELISA (Rec: 07/31/18 13:08 DELISA [email or web address]) Nutritional Asmnt/Malnutrition Patient General Information Nutritional Screening Moderate Risk Diagnosis psychosis Pertinent Medical Hx/Surgical Hx HTN, DM, CHF, asthma/COPD, dyslipidemia, seizures, arthritis, s/p pneumonia, cardiac arrhythmia, chronic renal disease, scoliosis, dementia, major depression, paranoid schizophrenia, cerebrovascular disease Subjective Information Pt sitting in rec room at time of visit. Pt appeared anxious and walked away when approached. Nursing noted PO intake: 75-100%. Current Diet Order/ Nutrition Support [facility] soft ground, MAURA, CCHO, low fat Pertinent Medications seroquel, colace, pepcid, keppra, MOM Pertinent Labs 07/27: Na 135, Cholesterol 223 -226, glucose 99 Nutritional Hx/Data Height 1.57 m Height (Calculated Centimeters) 157.5 Current Weight (lbs) 58.967 kg Weight (Calculated Kilograms) 59.0 Weight (Calculated Grams) 02717.0 [place] Body Weight 118 lb Body Mass Index (BMI) 23.8 Weight Status Approriate GI Symptoms GI Symptoms None Last BM 07/30 Difficult in: None Food Allergies No Skin Integrity/Comment: intact, rosa 19 Current %PO Good (75-100%) Estimated Nutritional Goals BEE in Kcals: Using Current wt Calories/Kcals/Kg 25-30 Kcals Calculated 6871-2454 Protein: Using Current wt Protein g/k.0 Protein Calculated 59 g Fluid: ml 6001-9951 (1 ml/kcal) Nutritional Problem No current Nutrition Prob Problem no nutrition dx at this time Malnutrition Alert Is there a minimum of two criteria No selected? Query Text:Check all the applicable criteria. A minimum of two criteria are recommended for diagnosis of either severe or non-severe malnutrition. Malnutrition Related to Morbid Obesity Malnutrition related to morbid obesity No Intervention/Recommendation Comments 1. Consider checking HgA1C to assess need for CCHO diet 2. Continue with [facility] soft ground, MAURA, low fat diet as ordered 3. Monitor PO intake, wt, labs and skin integrity 4. F/U as low risk in 7 days, 08/07 Expected Outcomes/Goals Expected Outcomes/Goals 1. PO intake to continue meeting at least 75% of all meals 2. Wt stability, skin to remain intact, labs to approach WNL Reviewed by Gloria Becker RD
--- NOTE | 2018-08-02 20:41 | Progress Notes ---
DATE: 08/02/2018 Case was discussed with staff of the patient, reviewed records. The patient has been selectively mute at times; however, he is taking his medication. I did change him to valproic acid 500 mg twice a day. He has been compliant with the medication with no side effects, no sedation, no nausea, no extrapyramidal symptoms. Continues to be responding to internal stimuli. I will be increasing his Seroquel dose to 125 mg twice a day to help improve his psychotic symptoms. He used to take a much higher dose and so far no side effects symptoms, no sedation, no nausea, no extrapyramidal symptoms. We will continue outpatient group therapy, milieu therapy, and adjust the medication as needed. [facility]# [id number]
--- NOTE | 2018-08-03 15:06 | Progress Notes ---
DATE: 08/03/2018 SUBJECTIVE: Case was discussed with staff of the patient, reviewed records. The patient continues to be selectively mute, continues to have poor insight, unpredictable, impulsive, needing redirection. Continues to unwilling to make a conversation, his affect is constricted, closing his eyes. No side effects with the medication, no sedation, no nausea, no extrapyramidal symptoms. I will be increasing his Seroquel dose to 150 mg twice a day to help improve his psychotic symptoms, paranoia and we will continue to work with the patient in group therapy, milieu therapy, adjust medication as needed. His lab work showed Hematology with low hematocrit, high ____. The rest of CBC within normal range. Chemistry panel low sodium. The rest within normal range. Has high cholesterol. The rest of the lipid panel within normal range. Urinalysis with moderate bacteria. Depakote level 27.5 and was repeated on 08/01/2018, it was 83.2, which is within acceptable therapeutic range. RPR is nonreactive and will continue the patient in group therapy, milieu therapy, adjust medication as needed. JOB# [id number]
--- NOTE | 2018-08-03 21:33 | Internal Medicine Prog Note ---
Internal Medicine Subjective - Subjective Service Date: 08/03/18 Patient seen and examined:: without staff Patient is:: awake, verbal, in bed, talking, confused Per staff patient has:: no adverse event Internal Medicine Objective - Results Result Diagrams: 07/27/18 18:40 07/27/18 18:40 Recent Labs: Laboratory Last Values WBC 5.7 Th/cmm (4.8-10.8) 07/27/18 18:40 RBC 4.44 Mil/cmm (3.80-5.80) 07/27/18 18:40 Hgb 12.9 gm/dL (12-16) 07/27/18 18:40 Hct 38.2 % (41.0-60) L 07/27/18 18:40 MCV 86.0 fl (80-99) 07/27/18 18:40 MCH 29.0 pg (27.0-31.0) 07/27/18 18:40 MCHC Differential 33.7 pg (28.0-36.0) 07/27/18 18:40 RDW 15.0 % (11.5-20.0) 07/27/18 18:40 Plt Count 244 Th/cmm (150-400) 07/27/18 18:40 MPV 8.2 fl 07/27/18 18:40 Neutrophils % 57.5 % (40.0-80.0) 07/27/18 18:40 Lymphocytes % 30.2 % (20.0-50.0) 07/27/18 18:40 Monocytes % 10.6 % (2.0-10.0) H 07/27/18 18:40 Eosinophils % 1.0 % (0.0-5.0) 07/27/18 18:40 Basophils % 0.7 % (0.0-2.0) 07/27/18 18:40 Sodium 135 mEq/L (136-145) L 07/27/18 18:40 Potassium 4.1 mEq/L (3.5-5.1) 07/27/18 18:40 Chloride 100 mEq/L (98-107) 07/27/18 18:40 Carbon Dioxide 26.3 mEq/L (21.0-31.0) 07/27/18 18:40 Anion Gap 12.8 (7.0-16.0) 07/27/18 18:40 BUN 17 mg/dL (7-25) 07/27/18 18:40 Creatinine 0.9 mg/dL (0.7-1.3) 07/27/18 18:40 Est GFR ( Amer) > 60.0 ml/min (>90) 07/27/18 18:40 Est GFR (Non-Af Amer) > 60.0 ml/min 07/27/18 18:40 BUN/Creatinine Ratio 18.9 07/27/18 18:40 Glucose 99 mg/dL (70-105) 07/27/18 18:40 Calcium 9.1 mg/dL (8.6-10.3) 07/27/18 18:40 Total Bilirubin 0.5 mg/dL (0.3-1.0) 07/27/18 18:40 AST 19 U/L (13-39) 07/27/18 18:40 ALT 11 U/L (7-52) 07/27/18 18:40 Alkaline Phosphatase 48 U/L (34-104) 07/27/18 18:40 Total Protein 6.8 gm/dL (6.0-8.3) 07/27/18 18:40 Albumin 4.2 gm/dL (4.2-5.5) 07/27/18 18:40 Globulin 2.6 gm/dL 07/27/18 18:40 Albumin/Globulin Ratio 1.6 (1.0-1.8) 07/27/18 18:40 Triglycerides 90 mg/dL (<150) 07/27/18 18:40 Cholesterol 226 mg/dL (<200) H 07/27/18 18:40 LDL Cholesterol Direct 138 mg/dL (75-193) 07/27/18 18:40 HDL Cholesterol 66 mg/dL (23-92) 07/27/18 18:40 TSH 2.17 uIU/ml (0.34-5.60) 07/27/18 18:40 Urine Source CLEAN C 07/27/18 18:30 Urine Color YELLOW 07/27/18 18:30 Urine Clarity CLEAR (CLEAR) 07/27/18 18:30 Urine pH 6.0 (4.6 - 8.0) 07/27/18 18:30 Ur Specific [place] <= 1.005 (1.005-1.030) 07/27/18 18:30 Urine Protein NEGATIVE mg/dL (NEGATIVE) 07/27/18 18:30 Urine Glucose (UA) NEGATIVE mg/dL (NEGATIVE) 07/27/18 18:30 Urine Ketones NEGATIVE mg/dL (NEGATIVE) 07/27/18 18:30 Urine Blood NEGATIVE (NEGATIVE) 07/27/18 18:30 Urine Nitrate NEGATIVE (NEGATIVE) 07/27/18 18:30 Urine Bilirubin NEGATIVE (NEGATIVE) 07/27/18 18:30 Urine Urobilinogen 0.2 E.U./dL (0.2 - 1.0) 07/27/18 18:30 Ur Leukocyte Esterase NEGATIVE (NEGATIVE) 07/27/18 18:30 Urine RBC NONE SEEN /hpf (0-5) 07/27/18 18:30 Urine WBC 0-2 /hpf (0-5) 07/27/18 18:30 Ur Epithelial Cells NONE SEEN /lpf (FEW) 07/27/18 18:30 Urine Bacteria MODERATE /hpf (NONE SEEN) H 07/27/18 18:30 Valproic Acid 83.2 ug/mL (50.0-100.0) 08/01/18 12:45 RPR NONREACTIVE (NONREACTIVE) 07/27/18 18:40 - Physical Exam Vitals and I&O: Vital Signs Temp 98.2 F 08/03/18 14:00 Pulse 96 08/03/18 16:27 Resp 20 08/03/18 14:00 BP 110/76 08/03/18 16:27 Pulse Ox 98 08/03/18 14:00 Intake & Output 08/03/18 08/03/18 08/04/18 06:59 18:59 06:59 Other: # Bowel Movements 1 Active Medications: Current Medications Acetaminophen (Tylenol) 650 mg PO Q4HR PRN PRN Reason: Pain (Mild) Stop: 09/25/18 22:04 Docusate Sodium (Colace) 100 mg PO BID [facility] Stop: 09/26/18 08:59 Last Admin: 08/03/18 16:27 Dose: 100 mg Famotidine (Pepcid) 40 mg PO DAILY [facility] Stop: 09/26/18 08:59 Last Admin: 08/03/18 08:29 Dose: 40 mg Levetiracetam (Keppra) 500 mg PO BID [facility] Stop: 09/26/18 08:59 Last Admin: 08/03/18 16:27 Dose: 500 mg Lorazepam (Ativan) 0.5 mg PO Q4HR PRN; Protocol PRN Reason: Anxiety Stop: 08/26/18 21:50 Last Admin: 08/02/18 16:30 Dose: 0.5 mg Magnesium Hydroxide (Milk Of Magnesia) 30 ml PO HS PRN PRN Reason: constipation Stop: 09/29/18 22:11 Metoprolol Tartrate (Lopressor) 50 mg PO BID [facility] Stop: 09/26/18 08:59 Last Admin: 08/03/18 16:27 Dose: 50 mg Quetiapine Fumarate (Seroquel) 150 mg PO BID [facility] Stop: 10/02/18 16:59 Last Admin: 08/03/18 16:26 Dose: 150 mg Valproate Sodium (Depakene) 500 mg PO BID [facility]; Protocol Stop: 09/27/18 16:59 Last Admin: 08/03/18 16:27 Dose: 500 mg Zolpidem Tartrate (Ambien) 5 mg PO HS PRN PRN Reason: Insomnia Stop: 09/25/18 21:50 Last Admin: 07/30/18 20:25 Dose: 5 mg General: demented HEENT: NC/AT, PERRLA, EOMI, anicteric sclerae, throat clear Neck: Supple, No JVD, No thyromegaly, +2 carotid pulse wo bruit, No LAD Lungs: CTAB Cardiovascular: RRR, Normal S1, Normal S2, without murmur Abdomen: soft, non-tender, non-distended Neurological: no change - Procedures Procedures: Procedures Procedure Code Date GROUP PSYCHOTHERAPY 84413 07/16/15 GROUP PSYCHOTHERAPY GZHZZZZ 07/16/15 INDIVID PSYCHOTHERAP NEC 94.39 09/06/13 OTHER GROUP THERAPY 94.44 05/03/14 RECREATIONAL THERAPY 93.81 08/25/12 Internal Medicine Assmt/Plan - Assessment Assessment: 1.HTN. 2.HYPERLIPIDEMIA. 3.SEIZURE DISORDERED. 4.DEMENTIA. - Plan Plan: CONTINUE ON CURRENT MEDICATION AND DIET. Nutritional Asmnt/Malnutr-PDOC - Dietary Evaluation Malnutrition Findings (Please click <Entered> for more info): Nutritional Asmnt/Malnutrition Start: 07/31/18 13: 00 Text: Status: Complete Freq: Protocol: Document 07/31/18 13:00 DELISA (Rec: 07/31/18 13:08 DELISA [email or web address]) Nutritional Asmnt/Malnutrition Patient General Information Nutritional Screening Moderate Risk Diagnosis psychosis Pertinent Medical Hx/Surgical Hx HTN, DM, CHF, asthma/COPD, dyslipidemia, seizures, arthritis, s/p pneumonia, cardiac arrhythmia, chronic renal disease, scoliosis, dementia, major depression, paranoid schizophrenia, cerebrovascular disease Subjective Information Pt sitting in rec room at time of visit. Pt appeared anxious and walked away when approached. Nursing noted PO intake: 75-100%. Current Diet Order/ Nutrition Support [facility] soft ground, MAURA, CCHO, low fat Pertinent Medications seroquel, colace, pepcid, keppra, MOM Pertinent Labs 07/27: Na 135, Cholesterol 223 -226, glucose 99 Nutritional Hx/Data Height 1.57 m Height (Calculated Centimeters) 157.5 Current Weight (lbs) 58.967 kg Weight (Calculated Kilograms) 59.0 Weight (Calculated Grams) 24791.0 [place] Body Weight 118 lb Body Mass Index (BMI) 23.8 Weight Status Approriate GI Symptoms GI Symptoms None Last BM 07/30 Difficult in: None Food Allergies No Skin Integrity/Comment: intact, rosa 19 Current %PO Good (75-100%) Estimated Nutritional Goals BEE in Kcals: Using Current wt Calories/Kcals/Kg 25-30 Kcals Calculated 7956-8413 Protein: Using Current wt Protein g/k.0 Protein Calculated 59 g Fluid: ml 6158-6425 (1 ml/kcal) Nutritional Problem No current Nutrition Prob Problem no nutrition dx at this time Malnutrition Alert Is there a minimum of two criteria No selected? Query Text:Check all the applicable criteria. A minimum of two criteria are recommended for diagnosis of either severe or non-severe malnutrition. Malnutrition Related to Morbid Obesity Malnutrition related to morbid obesity No Intervention/Recommendation Comments 1. Consider checking HgA1C to assess need for CCHO diet 2. Continue with [facility] soft ground, MAURA, low fat diet as ordered 3. Monitor PO intake, wt, labs and skin integrity 4. F/U as low risk in 7 days, 08/07 Expected Outcomes/Goals Expected Outcomes/Goals 1. PO intake to continue meeting at least 75% of all meals 2. Wt stability, skin to remain intact, labs to approach WNL Reviewed by Gloria Becker RD
--- NOTE | 2018-08-04 16:07 | Progress Notes ---
DATE: 08/04/2018 SUBJECTIVE: Case was discussed with staff of the patient, reviewed records. The patient continues to be psychotic, internally preoccupied, closing his eye, is responding to internal stimuli, unable to participate in meaningful conversation, unpredictable, impulsive, needing redirection. I did increase Seroquel dose yesterday to 150 mg twice a day. Also, is on Depakote 500 mg twice a day. No side effects with the medication, no sedation, no nausea, no extrapyramidal symptoms. His Depakote level is 83.2 which is within acceptable therapeutic range. We will continue to work with the patient in group therapy, milieu therapy, adjust medication as needed. JOB# [id number]
--- NOTE | 2018-08-04 21:34 | Internal Medicine Prog Note ---
Internal Medicine Subjective - Subjective Service Date: 08/04/18 Patient seen and examined:: with staff Patient is:: awake, verbal, in bed, talking, confused Per staff patient has:: no adverse event Internal Medicine Objective - Results Result Diagrams: 07/27/18 18:40 07/27/18 18:40 Recent Labs: Laboratory Last Values WBC 5.7 Th/cmm (4.8-10.8) 07/27/18 18:40 RBC 4.44 Mil/cmm (3.80-5.80) 07/27/18 18:40 Hgb 12.9 gm/dL (12-16) 07/27/18 18:40 Hct 38.2 % (41.0-60) L 07/27/18 18:40 MCV 86.0 fl (80-99) 07/27/18 18:40 MCH 29.0 pg (27.0-31.0) 07/27/18 18:40 MCHC Differential 33.7 pg (28.0-36.0) 07/27/18 18:40 RDW 15.0 % (11.5-20.0) 07/27/18 18:40 Plt Count 244 Th/cmm (150-400) 07/27/18 18:40 MPV 8.2 fl 07/27/18 18:40 Neutrophils % 57.5 % (40.0-80.0) 07/27/18 18:40 Lymphocytes % 30.2 % (20.0-50.0) 07/27/18 18:40 Monocytes % 10.6 % (2.0-10.0) H 07/27/18 18:40 Eosinophils % 1.0 % (0.0-5.0) 07/27/18 18:40 Basophils % 0.7 % (0.0-2.0) 07/27/18 18:40 Sodium 135 mEq/L (136-145) L 07/27/18 18:40 Potassium 4.1 mEq/L (3.5-5.1) 07/27/18 18:40 Chloride 100 mEq/L (98-107) 07/27/18 18:40 Carbon Dioxide 26.3 mEq/L (21.0-31.0) 07/27/18 18:40 Anion Gap 12.8 (7.0-16.0) 07/27/18 18:40 BUN 17 mg/dL (7-25) 07/27/18 18:40 Creatinine 0.9 mg/dL (0.7-1.3) 07/27/18 18:40 Est GFR ( Amer) > 60.0 ml/min (>90) 07/27/18 18:40 Est GFR (Non-Af Amer) > 60.0 ml/min 07/27/18 18:40 BUN/Creatinine Ratio 18.9 07/27/18 18:40 Glucose 99 mg/dL (70-105) 07/27/18 18:40 Calcium 9.1 mg/dL (8.6-10.3) 07/27/18 18:40 Total Bilirubin 0.5 mg/dL (0.3-1.0) 07/27/18 18:40 AST 19 U/L (13-39) 07/27/18 18:40 ALT 11 U/L (7-52) 07/27/18 18:40 Alkaline Phosphatase 48 U/L (34-104) 07/27/18 18:40 Total Protein 6.8 gm/dL (6.0-8.3) 07/27/18 18:40 Albumin 4.2 gm/dL (4.2-5.5) 07/27/18 18:40 Globulin 2.6 gm/dL 07/27/18 18:40 Albumin/Globulin Ratio 1.6 (1.0-1.8) 07/27/18 18:40 Triglycerides 90 mg/dL (<150) 07/27/18 18:40 Cholesterol 226 mg/dL (<200) H 07/27/18 18:40 LDL Cholesterol Direct 138 mg/dL (75-193) 07/27/18 18:40 HDL Cholesterol 66 mg/dL (23-92) 07/27/18 18:40 TSH 2.17 uIU/ml (0.34-5.60) 07/27/18 18:40 Urine Source CLEAN C 07/27/18 18:30 Urine Color YELLOW 07/27/18 18:30 Urine Clarity CLEAR (CLEAR) 07/27/18 18:30 Urine pH 6.0 (4.6 - 8.0) 07/27/18 18:30 Ur Specific [place] <= 1.005 (1.005-1.030) 07/27/18 18:30 Urine Protein NEGATIVE mg/dL (NEGATIVE) 07/27/18 18:30 Urine Glucose (UA) NEGATIVE mg/dL (NEGATIVE) 07/27/18 18:30 Urine Ketones NEGATIVE mg/dL (NEGATIVE) 07/27/18 18:30 Urine Blood NEGATIVE (NEGATIVE) 07/27/18 18:30 Urine Nitrate NEGATIVE (NEGATIVE) 07/27/18 18:30 Urine Bilirubin NEGATIVE (NEGATIVE) 07/27/18 18:30 Urine Urobilinogen 0.2 E.U./dL (0.2 - 1.0) 07/27/18 18:30 Ur Leukocyte Esterase NEGATIVE (NEGATIVE) 07/27/18 18:30 Urine RBC NONE SEEN /hpf (0-5) 07/27/18 18:30 Urine WBC 0-2 /hpf (0-5) 07/27/18 18:30 Ur Epithelial Cells NONE SEEN /lpf (FEW) 07/27/18 18:30 Urine Bacteria MODERATE /hpf (NONE SEEN) H 07/27/18 18:30 Valproic Acid 83.2 ug/mL (50.0-100.0) 08/01/18 12:45 RPR NONREACTIVE (NONREACTIVE) 07/27/18 18:40 - Physical Exam Vitals and I&O: Vital Signs Temp 97.8 F 08/04/18 21:20 Pulse 109 08/04/18 21:20 Resp 20 08/04/18 21:20 BP 108/71 08/04/18 21:20 Pulse Ox 91 08/04/18 21:20 Intake & Output 08/04/18 08/04/18 08/05/18 06:59 18:59 06:59 Intake Total 1800 240 Balance 1800 240 Intake: Oral 1800 240 Other: # Voids 2 # Bowel Movements 1 Active Medications: Current Medications Acetaminophen (Tylenol) 650 mg PO Q4HR PRN PRN Reason: Pain (Mild) Stop: 09/25/18 22:04 Docusate Sodium (Colace) 100 mg PO BID [facility] Stop: 09/26/18 08:59 Last Admin: 08/04/18 17:11 Dose: 100 mg Famotidine (Pepcid) 40 mg PO DAILY [facility] Stop: 09/26/18 08:59 Last Admin: 08/04/18 09:26 Dose: 40 mg Levetiracetam (Keppra) 500 mg PO BID [facility] Stop: 09/26/18 08:59 Last Admin: 08/04/18 17:11 Dose: 500 mg Lorazepam (Ativan) 0.5 mg PO Q4HR PRN; Protocol PRN Reason: Anxiety Stop: 08/26/18 21:50 Last Admin: 08/02/18 16:30 Dose: 0.5 mg Magnesium Hydroxide (Milk Of Magnesia) 30 ml PO HS PRN PRN Reason: constipation Stop: 09/29/18 22:11 Metoprolol Tartrate (Lopressor) 50 mg PO BID [facility] Stop: 09/26/18 08:59 Last Admin: 08/04/18 17:12 Dose: Not Given Quetiapine Fumarate (Seroquel) 150 mg PO BID [facility] Stop: 10/02/18 16:59 Last Admin: 08/04/18 17:11 Dose: 150 mg Valproate Sodium (Depakene) 500 mg PO BID [facility]; Protocol Stop: 09/27/18 16:59 Last Admin: 08/04/18 17:12 Dose: 500 mg Zolpidem Tartrate (Ambien) 5 mg PO HS PRN PRN Reason: Insomnia Stop: 09/25/18 21:50 Last Admin: 07/30/18 20:25 Dose: 5 mg General: demented HEENT: NC/AT, PERRLA, EOMI, anicteric sclerae, throat clear Neck: Supple, No JVD, No thyromegaly, +2 carotid pulse wo bruit, No LAD Lungs: CTAB Cardiovascular: RRR, Normal S1, Normal S2, without murmur Abdomen: soft, non-tender, non-distended Neurological: no change - Procedures Procedures: Procedures Procedure Code Date GROUP PSYCHOTHERAPY 48191 07/16/15 GROUP PSYCHOTHERAPY GZHZZZZ 07/16/15 INDIVID PSYCHOTHERAP NEC 94.39 09/06/13 OTHER GROUP THERAPY 94.44 05/03/14 RECREATIONAL THERAPY 93.81 08/25/12 Internal Medicine Assmt/Plan - Assessment Assessment: 1.HTN. 2.HYPERLIPIDEMIA. 3.SEIZURE DISORDERED. 4.DEMENTIA. - Plan Plan: CONTINUE ON CURRENT MEDICATION AND DIET. Nutritional Asmnt/Malnutr-PDOC - Dietary Evaluation Malnutrition Findings (Please click <Entered> for more info): Nutritional Asmnt/Malnutrition Start: 07/31/18 13: 00 Text: Status: Complete Freq: Protocol: Document 07/31/18 13:00 DELISA (Rec: 07/31/18 13:08 DELISA [email or web address]) Nutritional Asmnt/Malnutrition Patient General Information Nutritional Screening Moderate Risk Diagnosis psychosis Pertinent Medical Hx/Surgical Hx HTN, DM, CHF, asthma/COPD, dyslipidemia, seizures, arthritis, s/p pneumonia, cardiac arrhythmia, chronic renal disease, scoliosis, dementia, major depression, paranoid schizophrenia, cerebrovascular disease Subjective Information Pt sitting in rec room at time of visit. Pt appeared anxious and walked away when approached. Nursing noted PO intake: 75-100%. Current Diet Order/ Nutrition Support [facility] soft [facility], MAURA, CCHO, low fat Pertinent Medications seroquel, colace, pepcid, keppra, MOM Pertinent Labs 07/27: Na 135, Cholesterol 223 -226, glucose 99 Nutritional Hx/Data Height 1.57 m Height (Calculated Centimeters) 157.5 Current Weight (lbs) 58.967 kg Weight (Calculated Kilograms) 59.0 Weight (Calculated Grams) 50352.0 [place] Body Weight 118 lb Body Mass Index (BMI) 23.8 Weight Status Approriate GI Symptoms GI Symptoms None Last BM 07/30 Difficult in: None Food Allergies No Skin Integrity/Comment: rosa aldridge 19 Current %PO Good (75-100%) Estimated Nutritional Goals BEE in Kcals: Using Current wt Calories/Kcals/Kg 25-30 Kcals Calculated 9236-0928 Protein: Using Current wt Protein g/k.0 Protein Calculated 59 g Fluid: ml 9220-3566 (1 ml/kcal) Nutritional Problem No current Nutrition Prob Problem no nutrition dx at this time Malnutrition Alert Is there a minimum of two criteria No selected? Query Text:Check all the applicable criteria. A minimum of two criteria are recommended for diagnosis of either severe or non-severe malnutrition. Malnutrition Related to Morbid Obesity Malnutrition related to morbid obesity No Intervention/Recommendation Comments 1. Consider checking HgA1C to assess need for CCHO diet 2. Continue with [facility] soft [facility], MAURA, low fat diet as ordered 3. Monitor PO intake, wt, labs and skin integrity 4. F/U as low risk in 7 days, 08/07 Expected Outcomes/Goals Expected Outcomes/Goals 1. PO intake to continue meeting at least 75% of all meals 2. Wt stability, skin to remain intact, labs to approach WNL Reviewed by Gloria Becker RD
--- NOTE | 2018-08-05 15:31 | Internal Medicine Prog Note ---
Internal Medicine Subjective - Subjective Service Date: 08/05/18 Patient seen and examined:: without staff Patient is:: awake, verbal, in bed, talking, confused Per staff patient has:: no adverse event Internal Medicine Objective - Results Result Diagrams: 07/27/18 18:40 07/27/18 18:40 Recent Labs: Laboratory Last Values WBC 5.7 Th/cmm (4.8-10.8) 07/27/18 18:40 RBC 4.44 Mil/cmm (3.80-5.80) 07/27/18 18:40 Hgb 12.9 gm/dL (12-16) 07/27/18 18:40 Hct 38.2 % (41.0-60) L 07/27/18 18:40 MCV 86.0 fl (80-99) 07/27/18 18:40 MCH 29.0 pg (27.0-31.0) 07/27/18 18:40 MCHC Differential 33.7 pg (28.0-36.0) 07/27/18 18:40 RDW 15.0 % (11.5-20.0) 07/27/18 18:40 Plt Count 244 Th/cmm (150-400) 07/27/18 18:40 MPV 8.2 fl 07/27/18 18:40 Neutrophils % 57.5 % (40.0-80.0) 07/27/18 18:40 Lymphocytes % 30.2 % (20.0-50.0) 07/27/18 18:40 Monocytes % 10.6 % (2.0-10.0) H 07/27/18 18:40 Eosinophils % 1.0 % (0.0-5.0) 07/27/18 18:40 Basophils % 0.7 % (0.0-2.0) 07/27/18 18:40 Sodium 135 mEq/L (136-145) L 07/27/18 18:40 Potassium 4.1 mEq/L (3.5-5.1) 07/27/18 18:40 Chloride 100 mEq/L (98-107) 07/27/18 18:40 Carbon Dioxide 26.3 mEq/L (21.0-31.0) 07/27/18 18:40 Anion Gap 12.8 (7.0-16.0) 07/27/18 18:40 BUN 17 mg/dL (7-25) 07/27/18 18:40 Creatinine 0.9 mg/dL (0.7-1.3) 07/27/18 18:40 Est GFR ( Amer) > 60.0 ml/min (>90) 07/27/18 18:40 Est GFR (Non-Af Amer) > 60.0 ml/min 07/27/18 18:40 BUN/Creatinine Ratio 18.9 07/27/18 18:40 Glucose 99 mg/dL (70-105) 07/27/18 18:40 Calcium 9.1 mg/dL (8.6-10.3) 07/27/18 18:40 Total Bilirubin 0.5 mg/dL (0.3-1.0) 07/27/18 18:40 AST 19 U/L (13-39) 07/27/18 18:40 ALT 11 U/L (7-52) 07/27/18 18:40 Alkaline Phosphatase 48 U/L (34-104) 07/27/18 18:40 Total Protein 6.8 gm/dL (6.0-8.3) 07/27/18 18:40 Albumin 4.2 gm/dL (4.2-5.5) 07/27/18 18:40 Globulin 2.6 gm/dL 07/27/18 18:40 Albumin/Globulin Ratio 1.6 (1.0-1.8) 07/27/18 18:40 Triglycerides 90 mg/dL (<150) 07/27/18 18:40 Cholesterol 226 mg/dL (<200) H 07/27/18 18:40 LDL Cholesterol Direct 138 mg/dL (75-193) 07/27/18 18:40 HDL Cholesterol 66 mg/dL (23-92) 07/27/18 18:40 TSH 2.17 uIU/ml (0.34-5.60) 07/27/18 18:40 Urine Source CLEAN C 07/27/18 18:30 Urine Color YELLOW 07/27/18 18:30 Urine Clarity CLEAR (CLEAR) 07/27/18 18:30 Urine pH 6.0 (4.6 - 8.0) 07/27/18 18:30 Ur Specific [place] <= 1.005 (1.005-1.030) 07/27/18 18:30 Urine Protein NEGATIVE mg/dL (NEGATIVE) 07/27/18 18:30 Urine Glucose (UA) NEGATIVE mg/dL (NEGATIVE) 07/27/18 18:30 Urine Ketones NEGATIVE mg/dL (NEGATIVE) 07/27/18 18:30 Urine Blood NEGATIVE (NEGATIVE) 07/27/18 18:30 Urine Nitrate NEGATIVE (NEGATIVE) 07/27/18 18:30 Urine Bilirubin NEGATIVE (NEGATIVE) 07/27/18 18:30 Urine Urobilinogen 0.2 E.U./dL (0.2 - 1.0) 07/27/18 18:30 Ur Leukocyte Esterase NEGATIVE (NEGATIVE) 07/27/18 18:30 Urine RBC NONE SEEN /hpf (0-5) 07/27/18 18:30 Urine WBC 0-2 /hpf (0-5) 07/27/18 18:30 Ur Epithelial Cells NONE SEEN /lpf (FEW) 07/27/18 18:30 Urine Bacteria MODERATE /hpf (NONE SEEN) H 07/27/18 18:30 Valproic Acid 83.2 ug/mL (50.0-100.0) 08/01/18 12:45 RPR NONREACTIVE (NONREACTIVE) 07/27/18 18:40 - Physical Exam Vitals and I&O: Vital Signs Temp 97.8 F 08/04/18 21:20 Pulse 90 08/05/18 08:19 Resp 18 08/05/18 05:34 BP 110/72 08/05/18 08:19 Pulse Ox 92 08/05/18 05:34 Intake & Output 08/04/18 08/05/18 08/05/18 18:59 06:59 18:59 Intake Total 1800 240 Balance 1800 240 Intake: Oral 1800 240 Other: # Voids 2 # Bowel Movements 1 Active Medications: Current Medications Acetaminophen (Tylenol) 650 mg PO Q4HR PRN PRN Reason: Pain (Mild) Stop: 09/25/18 22:04 Docusate Sodium (Colace) 100 mg PO BID [facility] Stop: 09/26/18 08:59 Last Admin: 08/05/18 08:20 Dose: 100 mg Famotidine (Pepcid) 40 mg PO DAILY [facility] Stop: 09/26/18 08:59 Last Admin: 08/05/18 08:19 Dose: 40 mg Levetiracetam (Keppra) 500 mg PO BID [facility] Stop: 09/26/18 08:59 Last Admin: 08/05/18 08:19 Dose: 500 mg Lorazepam (Ativan) 0.5 mg PO Q4HR PRN; Protocol PRN Reason: Anxiety Stop: 08/26/18 21:50 Last Admin: 08/02/18 16:30 Dose: 0.5 mg Magnesium Hydroxide (Milk Of Magnesia) 30 ml PO HS PRN PRN Reason: constipation Stop: 09/29/18 22:11 Metoprolol Tartrate (Lopressor) 50 mg PO BID [facility] Stop: 09/26/18 08:59 Last Admin: 08/05/18 08:19 Dose: 50 mg Quetiapine Fumarate (Seroquel) 175 mg PO BID [facility] Stop: 10/04/18 08:59 Valproate Sodium (Depakene) 500 mg PO BID [facility]; Protocol Stop: 09/27/18 16:59 Last Admin: 08/05/18 08:19 Dose: 500 mg Zolpidem Tartrate (Ambien) 5 mg PO HS PRN PRN Reason: Insomnia Stop: 09/25/18 21:50 Last Admin: 07/30/18 20:25 Dose: 5 mg General: demented HEENT: NC/AT, PERRLA, EOMI, anicteric sclerae, throat clear Neck: Supple, No JVD, No thyromegaly, +2 carotid pulse wo bruit, No LAD Lungs: CTAB Cardiovascular: RRR, Normal S1, Normal S2, without murmur Abdomen: soft, non-tender, non-distended Neurological: no change - Procedures Procedures: Procedures Procedure Code Date GROUP PSYCHOTHERAPY 31468 07/16/15 GROUP PSYCHOTHERAPY GZHZZZZ 07/16/15 INDIVID PSYCHOTHERAP NEC 94.39 09/06/13 OTHER GROUP THERAPY 94.44 05/03/14 RECREATIONAL THERAPY 93.81 08/25/12 Internal Medicine Assmt/Plan - Assessment Assessment: 1.HTN. 2.HYPERLIPIDEMIA. 3.SEIZURE DISORDERED. 4.DEMENTIA. - Plan Plan: CONTINUE ON CURRENT MEDICATION AND DIET. Nutritional Asmnt/Malnutr-PDOC - Dietary Evaluation Malnutrition Findings (Please click <Entered> for more info): Nutritional Asmnt/Malnutrition Start: 07/31/18 13: 00 Text: Status: Complete Freq: Protocol: Document 10/29/18 13:00 DELISA (Rec: 07/31/18 13:08 DELISA [email or web address]) Nutritional Asmnt/Malnutrition Patient General Information Nutritional Screening Moderate Risk Diagnosis psychosis Pertinent Medical Hx/Surgical Hx HTN, DM, CHF, asthma/COPD, dyslipidemia, seizures, arthritis, s/p pneumonia, cardiac arrhythmia, chronic renal disease, scoliosis, dementia, major depression, paranoid schizophrenia, cerebrovascular disease Subjective Information Pt sitting in rec room at time of visit. Pt appeared anxious and walked away when approached. Nursing noted PO intake: 75-100%. Current Diet Order/ Nutrition Support [facility] soft ground, MAURA, CCHO, low fat Pertinent Medications seroquel, colace, pepcid, keppra, MOM Pertinent Labs 07/27: Na 135, Cholesterol 223 -226, glucose 99 Nutritional Hx/Data Height 1.57 m Height (Calculated Centimeters) 157.5 Current Weight (lbs) 58.967 kg Weight (Calculated Kilograms) 59.0 Weight (Calculated Grams) 93889.0 [place] Body Weight 118 lb Body Mass Index (BMI) 23.8 Weight Status Approriate GI Symptoms GI Symptoms None Last BM 07/30 Difficult in: None Food Allergies No Skin Integrity/Comment: oly, rosa 19 Current %PO Good (75-100%) Estimated Nutritional Goals BEE in Kcals: Using Current wt Calories/Kcals/Kg 25-30 Kcals Calculated 8879-1122 Protein: Using Current wt Protein g/k.0 Protein Calculated 59 g Fluid: ml 7227-6129 (1 ml/kcal) Nutritional Problem No current Nutrition Prob Problem no nutrition dx at this time Malnutrition Alert Is there a minimum of two criteria No selected? Query Text:Check all the applicable criteria. A minimum of two criteria are recommended for diagnosis of either severe or non-severe malnutrition. Malnutrition Related to Morbid Obesity Malnutrition related to morbid obesity No Intervention/Recommendation Comments 1. Consider checking HgA1C to assess need for CCHO diet 2. Continue with [facility] soft ground, MAURA, low fat diet as ordered 3. Monitor PO intake, wt, labs and skin integrity 4. F/U as low risk in 7 days, 08/07 Expected Outcomes/Goals Expected Outcomes/Goals 1. PO intake to continue meeting at least 75% of all meals 2. Wt stability, skin to remain intact, labs to approach WNL Reviewed by Gloria Becker RD
--- NOTE | 2018-08-06 00:56 | Progress Notes ---
DATE: 08/05/2018 SUBJECTIVE: The patient is currently in the hospital, aggressive behaviors, believing that demons are after him. On [id number], the patient appearing internally preoccupied, rocking back and forth, slept for about 5 hours, getting up several times, getting out of his room, talking to himself, mumbling to himself. The patient not at all interactive. He is awake, alert, sitting, but does not make any eye contact. ASSESSMENT: The patient remains psychotic. Ongoing safety concerns, appearing quite psychotic. PLAN: We will continue to monitor. I will be increasing his dosing of antipsychotic medications today to target ongoing psychotic symptoms. We will continue to monitor for any over sedation, EPS. JOB# [id number]
[2018-08-06] MEDS: QUEtiapine Fumarate 100 MG, QUEtiapine Fumarate 75 MG PO SCH ×2 (09:18→16:40)
--- NOTE | 2018-08-06 19:26 | Internal Medicine Prog Note ---
Internal Medicine Subjective - Subjective Service Date: 08/06/18 Patient seen and examined:: without staff Patient is:: awake, verbal, in bed, talking, confused Per staff patient has:: no adverse event Internal Medicine Objective - Results Result Diagrams: 07/27/18 18:40 07/27/18 18:40 Recent Labs: Laboratory Last Values WBC 5.7 Th/cmm (4.8-10.8) 07/27/18 18:40 RBC 4.44 Mil/cmm (3.80-5.80) 07/27/18 18:40 Hgb 12.9 gm/dL (12-16) 07/27/18 18:40 Hct 38.2 % (41.0-60) L 07/27/18 18:40 MCV 86.0 fl (80-99) 07/27/18 18:40 MCH 29.0 pg (27.0-31.0) 07/27/18 18:40 MCHC Differential 33.7 pg (28.0-36.0) 07/27/18 18:40 RDW 15.0 % (11.5-20.0) 07/27/18 18:40 Plt Count 244 Th/cmm (150-400) 07/27/18 18:40 MPV 8.2 fl 07/27/18 18:40 Neutrophils % 57.5 % (40.0-80.0) 07/27/18 18:40 Lymphocytes % 30.2 % (20.0-50.0) 07/27/18 18:40 Monocytes % 10.6 % (2.0-10.0) H 07/27/18 18:40 Eosinophils % 1.0 % (0.0-5.0) 07/27/18 18:40 Basophils % 0.7 % (0.0-2.0) 07/27/18 18:40 Sodium 135 mEq/L (136-145) L 07/27/18 18:40 Potassium 4.1 mEq/L (3.5-5.1) 07/27/18 18:40 Chloride 100 mEq/L (98-107) 07/27/18 18:40 Carbon Dioxide 26.3 mEq/L (21.0-31.0) 07/27/18 18:40 Anion Gap 12.8 (7.0-16.0) 07/27/18 18:40 BUN 17 mg/dL (7-25) 07/27/18 18:40 Creatinine 0.9 mg/dL (0.7-1.3) 07/27/18 18:40 Est GFR ( Amer) > 60.0 ml/min (>90) 07/27/18 18:40 Est GFR (Non-Af Amer) > 60.0 ml/min 07/27/18 18:40 BUN/Creatinine Ratio 18.9 07/27/18 18:40 Glucose 99 mg/dL (70-105) 07/27/18 18:40 Calcium 9.1 mg/dL (8.6-10.3) 07/27/18 18:40 Total Bilirubin 0.5 mg/dL (0.3-1.0) 07/27/18 18:40 AST 19 U/L (13-39) 07/27/18 18:40 ALT 11 U/L (7-52) 07/27/18 18:40 Alkaline Phosphatase 48 U/L (34-104) 07/27/18 18:40 Total Protein 6.8 gm/dL (6.0-8.3) 07/27/18 18:40 Albumin 4.2 gm/dL (4.2-5.5) 07/27/18 18:40 Globulin 2.6 gm/dL 07/27/18 18:40 Albumin/Globulin Ratio 1.6 (1.0-1.8) 07/27/18 18:40 Triglycerides 90 mg/dL (<150) 07/27/18 18:40 Cholesterol 226 mg/dL (<200) H 07/27/18 18:40 LDL Cholesterol Direct 138 mg/dL (75-193) 07/27/18 18:40 HDL Cholesterol 66 mg/dL (23-92) 07/27/18 18:40 TSH 2.17 uIU/ml (0.34-5.60) 07/27/18 18:40 Urine Source CLEAN C 07/27/18 18:30 Urine Color YELLOW 07/27/18 18:30 Urine Clarity CLEAR (CLEAR) 07/27/18 18:30 Urine pH 6.0 (4.6 - 8.0) 07/27/18 18:30 Ur Specific [place] <= 1.005 (1.005-1.030) 07/27/18 18:30 Urine Protein NEGATIVE mg/dL (NEGATIVE) 07/27/18 18:30 Urine Glucose (UA) NEGATIVE mg/dL (NEGATIVE) 07/27/18 18:30 Urine Ketones NEGATIVE mg/dL (NEGATIVE) 07/27/18 18:30 Urine Blood NEGATIVE (NEGATIVE) 07/27/18 18:30 Urine Nitrate NEGATIVE (NEGATIVE) 07/27/18 18:30 Urine Bilirubin NEGATIVE (NEGATIVE) 07/27/18 18:30 Urine Urobilinogen 0.2 E.U./dL (0.2 - 1.0) 07/27/18 18:30 Ur Leukocyte Esterase NEGATIVE (NEGATIVE) 07/27/18 18:30 Urine RBC NONE SEEN /hpf (0-5) 07/27/18 18:30 Urine WBC 0-2 /hpf (0-5) 07/27/18 18:30 Ur Epithelial Cells NONE SEEN /lpf (FEW) 07/27/18 18:30 Urine Bacteria MODERATE /hpf (NONE SEEN) H 07/27/18 18:30 Valproic Acid 83.2 ug/mL (50.0-100.0) 08/01/18 12:45 RPR NONREACTIVE (NONREACTIVE) 07/27/18 18:40 - Physical Exam Vitals and I&O: Vital Signs Temp 97.6 F 08/06/18 14:00 Pulse 92 08/06/18 16:41 Resp 20 08/06/18 14:00 BP 122/66 08/06/18 16:41 Pulse Ox 96 08/06/18 14:00 Intake & Output 08/06/18 08/06/18 08/07/18 06:59 18:59 06:59 Intake Total 900 Balance 900 Intake: Oral 900 Other: # Voids 3 # Bowel Movements 1 Active Medications: Current Medications Acetaminophen (Tylenol) 650 mg PO Q4HR PRN PRN Reason: Pain (Mild) Stop: 09/25/18 22:04 Docusate Sodium (Colace) 100 mg PO BID [facility] Stop: 09/26/18 08:59 Last Admin: 08/06/18 16:41 Dose: 100 mg Famotidine (Pepcid) 40 mg PO DAILY [facility] Stop: 09/26/18 08:59 Last Admin: 08/06/18 09:19 Dose: 40 mg Levetiracetam (Keppra) 500 mg PO BID [facility] Stop: 09/26/18 08:59 Last Admin: 08/06/18 16:40 Dose: 500 mg Lorazepam (Ativan) 0.5 mg PO Q4HR PRN; Protocol PRN Reason: Anxiety Stop: 08/26/18 21:50 Last Admin: 08/02/18 16:30 Dose: 0.5 mg Magnesium Hydroxide (Milk Of Magnesia) 30 ml PO HS PRN PRN Reason: constipation Stop: 09/29/18 22:11 Metoprolol Tartrate (Lopressor) 50 mg PO BID [facility] Stop: 09/26/18 08:59 Last Admin: 08/06/18 16:41 Dose: 50 mg Quetiapine Fumarate 100 mg/ (Quetiapine Fumarate 75 mg) 175 mg PO BID [facility] Stop: 10/05/18 08:59 Last Admin: 08/06/18 16:40 Dose: 175 mg Valproate Sodium (Depakene) 500 mg PO BID [facility]; Protocol Stop: 09/27/18 16:59 Last Admin: 08/06/18 16:39 Dose: 500 mg Zolpidem Tartrate (Ambien) 5 mg PO HS PRN PRN Reason: Insomnia Stop: 09/25/18 21:50 Last Admin: 08/05/18 21:14 Dose: 5 mg General: demented HEENT: NC/AT, PERRLA, EOMI, anicteric sclerae, throat clear Neck: Supple, No JVD, No thyromegaly, +2 carotid pulse wo bruit, No LAD Lungs: CTAB Cardiovascular: RRR, Normal S1, Normal S2, without murmur Abdomen: soft, non-tender, non-distended Neurological: no change - Procedures Procedures: Procedures Procedure Code Date GROUP PSYCHOTHERAPY 09435 07/16/15 GROUP PSYCHOTHERAPY [id number] 07/16/15 INDIVID PSYCHOTHERAP NEC 94.39 09/06/13 OTHER GROUP THERAPY 94.44 05/03/14 RECREATIONAL THERAPY 93.81 08/25/12 Internal Medicine Assmt/Plan - Assessment Assessment: 1.HTN. 2.HYPERLIPIDEMIA. 3.SEIZURE DISORDERED. 4.DEMENTIA. - Plan Plan: CONTINUE ON CURRENT MEDICATION AND DIET. Nutritional Asmnt/Malnutr-PDOC - Dietary Evaluation Malnutrition Findings (Please click <Entered> for more info): Nutritional Asmnt/Malnutrition Start: 07/31/18 13: 00 Text: Status: Complete Freq: Protocol: Document 07/31/18 13:00 DELISA (Rec: 07/31/18 13:08 DELISA [email or web address]) Nutritional Asmnt/Malnutrition Patient General Information Nutritional Screening Moderate Risk Diagnosis psychosis Pertinent Medical Hx/Surgical Hx HTN, DM, CHF, asthma/COPD, dyslipidemia, seizures, arthritis, s/p pneumonia, cardiac arrhythmia, chronic renal disease, scoliosis, dementia, major depression, paranoid schizophrenia, cerebrovascular disease Subjective Information Pt sitting in rec room at time of visit. Pt appeared anxious and walked away when approached. Nursing noted PO intake: 75-100%. Current Diet Order/ Nutrition Support [facility] soft ground, MAURA, CCHO, low fat Pertinent Medications seroquel, colace, pepcid, keppra, MOM Pertinent Labs 07/27: Na 135, Cholesterol 223 -226, glucose 99 Nutritional Hx/Data Height 1.57 m Height (Calculated Centimeters) 157.5 Current Weight (lbs) 58.967 kg Weight (Calculated Kilograms) 59.0 Weight (Calculated Grams) 68348.0 [place] Body Weight 118 lb Body Mass Index (BMI) 23.8 Weight Status Approriate GI Symptoms GI Symptoms None Last BM 07/30 Difficult in: None Food Allergies No Skin Integrity/Comment: rosa aldridge 19 Current %PO Good (75-100%) Estimated Nutritional Goals BEE in Kcals: Using Current wt Calories/Kcals/Kg 25-30 Kcals Calculated 1269-9773 Protein: Using Current wt Protein g/k.0 Protein Calculated 59 g Fluid: ml 2313-7373 (1 ml/kcal) Nutritional Problem No current Nutrition Prob Problem no nutrition dx at this time Malnutrition Alert Is there a minimum of two criteria No selected? Query Text:Check all the applicable criteria. A minimum of two criteria are recommended for diagnosis of either severe or non-severe malnutrition. Malnutrition Related to Morbid Obesity Malnutrition related to morbid obesity No Intervention/Recommendation Comments 1. Consider checking HgA1C to assess need for CCHO diet 2. Continue with [facility] soft ground, MAURA, low fat diet as ordered 3. Monitor PO intake, wt, labs and skin integrity 4. F/U as low risk in 7 days, 08/07 Expected Outcomes/Goals Expected Outcomes/Goals 1. PO intake to continue meeting at least 75% of all meals 2. Wt stability, skin to remain intact, labs to approach WNL Reviewed by Gloria Becker RD
--- NOTE | 2018-08-06 20:31 | Progress Notes ---
DATE: 08/06/2018 SUBJECTIVE: The patient in the hospital, aggressive behaviors, believing demons are after him. The patient refusing to speak with me today, sleeping, arousable, but then closes his eyes, does not talk to me. Per staff, he is AO to name only, disorganized, preoccupied with thoughts, mumbling to self, talking with self. Still appearing psychotic, slept fairly well last night, eating with some prompting. Currently on Seroquel dosing as well as Depakote. We will continue to monitor. ASSESSMENT: The patient remains symptomatic, ongoing concerns about behaviors, impulsivity. JOB# [id number]
[2018-08-07] MEDS: QUEtiapine Fumarate 100 MG, QUEtiapine Fumarate 75 MG PO SCH ×2 (08:23→17:36)
--- NOTE | 2018-08-07 21:15 | Internal Medicine Prog Note ---
Internal Medicine Subjective - Subjective Service Date: 08/07/18 Patient seen and examined:: without staff Patient is:: awake, verbal, in bed, talking, confused Per staff patient has:: no adverse event Internal Medicine Objective - Results Result Diagrams: 07/27/18 18:40 07/27/18 18:40 Recent Labs: Laboratory Last Values WBC 5.7 Th/cmm (4.8-10.8) 07/27/18 18:40 RBC 4.44 Mil/cmm (3.80-5.80) 07/27/18 18:40 Hgb 12.9 gm/dL (12-16) 07/27/18 18:40 Hct 38.2 % (41.0-60) L 07/27/18 18:40 MCV 86.0 fl (80-99) 07/27/18 18:40 MCH 29.0 pg (27.0-31.0) 07/27/18 18:40 MCHC Differential 33.7 pg (28.0-36.0) 07/27/18 18:40 RDW 15.0 % (11.5-20.0) 07/27/18 18:40 Plt Count 244 Th/cmm (150-400) 07/27/18 18:40 MPV 8.2 fl 07/27/18 18:40 Neutrophils % 57.5 % (40.0-80.0) 07/27/18 18:40 Lymphocytes % 30.2 % (20.0-50.0) 07/27/18 18:40 Monocytes % 10.6 % (2.0-10.0) H 07/27/18 18:40 Eosinophils % 1.0 % (0.0-5.0) 07/27/18 18:40 Basophils % 0.7 % (0.0-2.0) 07/27/18 18:40 Sodium 135 mEq/L (136-145) L 07/27/18 18:40 Potassium 4.1 mEq/L (3.5-5.1) 07/27/18 18:40 Chloride 100 mEq/L (98-107) 07/27/18 18:40 Carbon Dioxide 26.3 mEq/L (21.0-31.0) 07/27/18 18:40 Anion Gap 12.8 (7.0-16.0) 07/27/18 18:40 BUN 17 mg/dL (7-25) 07/27/18 18:40 Creatinine 0.9 mg/dL (0.7-1.3) 07/27/18 18:40 Est GFR ( Amer) > 60.0 ml/min (>90) 07/27/18 18:40 Est GFR (Non-Af Amer) > 60.0 ml/min 07/27/18 18:40 BUN/Creatinine Ratio 18.9 07/27/18 18:40 Glucose 99 mg/dL (70-105) 07/27/18 18:40 Calcium 9.1 mg/dL (8.6-10.3) 07/27/18 18:40 Total Bilirubin 0.5 mg/dL (0.3-1.0) 07/27/18 18:40 AST 19 U/L (13-39) 07/27/18 18:40 ALT 11 U/L (7-52) 07/27/18 18:40 Alkaline Phosphatase 48 U/L (34-104) 07/27/18 18:40 Total Protein 6.8 gm/dL (6.0-8.3) 07/27/18 18:40 Albumin 4.2 gm/dL (4.2-5.5) 07/27/18 18:40 Globulin 2.6 gm/dL 07/27/18 18:40 Albumin/Globulin Ratio 1.6 (1.0-1.8) 07/27/18 18:40 Triglycerides 90 mg/dL (<150) 07/27/18 18:40 Cholesterol 226 mg/dL (<200) H 07/27/18 18:40 LDL Cholesterol Direct 138 mg/dL (75-193) 07/27/18 18:40 HDL Cholesterol 66 mg/dL (23-92) 07/27/18 18:40 TSH 2.17 uIU/ml (0.34-5.60) 07/27/18 18:40 Urine Source CLEAN C 07/27/18 18:30 Urine Color YELLOW 07/27/18 18:30 Urine Clarity CLEAR (CLEAR) 07/27/18 18:30 Urine pH 6.0 (4.6 - 8.0) 07/27/18 18:30 Ur Specific [place] <= 1.005 (1.005-1.030) 07/27/18 18:30 Urine Protein NEGATIVE mg/dL (NEGATIVE) 07/27/18 18:30 Urine Glucose (UA) NEGATIVE mg/dL (NEGATIVE) 07/27/18 18:30 Urine Ketones NEGATIVE mg/dL (NEGATIVE) 07/27/18 18:30 Urine Blood NEGATIVE (NEGATIVE) 07/27/18 18:30 Urine Nitrate NEGATIVE (NEGATIVE) 07/27/18 18:30 Urine Bilirubin NEGATIVE (NEGATIVE) 07/27/18 18:30 Urine Urobilinogen 0.2 E.U./dL (0.2 - 1.0) 07/27/18 18:30 Ur Leukocyte Esterase NEGATIVE (NEGATIVE) 07/27/18 18:30 Urine RBC NONE SEEN /hpf (0-5) 07/27/18 18:30 Urine WBC 0-2 /hpf (0-5) 07/27/18 18:30 Ur Epithelial Cells NONE SEEN /lpf (FEW) 07/27/18 18:30 Urine Bacteria MODERATE /hpf (NONE SEEN) H 07/27/18 18:30 Valproic Acid 83.2 ug/mL (50.0-100.0) 08/01/18 12:45 RPR NONREACTIVE (NONREACTIVE) 07/27/18 18:40 - Physical Exam Vitals and I&O: Vital Signs Temp 98.1 F 08/07/18 20:39 Pulse 87 08/07/18 20:39 Resp 19 08/07/18 20:39 BP 97/62 08/07/18 20:39 Pulse Ox 96 08/07/18 20:39 Intake & Output 08/07/18 08/07/18 08/08/18 06:59 18:59 06:59 Intake Total 900 240 Balance 900 240 Intake: Oral 900 240 Other: # Voids 3 3 # Bowel Movements 1 0 Active Medications: Current Medications Acetaminophen (Tylenol) 650 mg PO Q4HR PRN PRN Reason: Pain (Mild) Stop: 09/25/18 22:04 Docusate Sodium (Colace) 100 mg PO BID [facility] Stop: 09/26/18 08:59 Last Admin: 08/07/18 17:36 Dose: 100 mg Famotidine (Pepcid) 40 mg PO DAILY JOEL Stop: 09/26/18 08:59 Last Admin: 08/07/18 08:24 Dose: 40 mg Levetiracetam (Keppra) 500 mg PO BID [facility] Stop: 09/26/18 08:59 Last Admin: 08/07/18 17:37 Dose: 500 mg Lorazepam (Ativan) 0.5 mg PO Q4HR PRN; Protocol PRN Reason: Anxiety Stop: 08/26/18 21:50 Last Admin: 08/02/18 16:30 Dose: 0.5 mg Magnesium Hydroxide (Milk Of Magnesia) 30 ml PO HS PRN PRN Reason: constipation Stop: 09/29/18 22:11 Metoprolol Tartrate (Lopressor) 50 mg PO BID [facility] Stop: 09/26/18 08:59 Last Admin: 08/07/18 17:37 Dose: 50 mg Quetiapine Fumarate 100 mg/ (Quetiapine Fumarate 75 mg) 175 mg PO BID [facility] Stop: 10/05/18 08:59 Last Admin: 08/07/18 17:36 Dose: 175 mg Valproate Sodium (Depakene) 500 mg PO BID [facility]; Protocol Stop: 09/27/18 16:59 Last Admin: 08/07/18 17:35 Dose: 500 mg Zolpidem Tartrate (Ambien) 5 mg PO HS PRN PRN Reason: Insomnia Stop: 09/25/18 21:50 Last Admin: 08/07/18 20:26 Dose: 5 mg General: demented HEENT: NC/AT, PERRLA, EOMI, anicteric sclerae, throat clear Neck: Supple, No JVD, No thyromegaly, +2 carotid pulse wo bruit, No LAD Lungs: CTAB Cardiovascular: RRR, Normal S1, Normal S2, without murmur Abdomen: soft, non-tender, non-distended Neurological: no change - Procedures Procedures: Procedures Procedure Code Date GROUP PSYCHOTHERAPY 54694 07/16/15 GROUP PSYCHOTHERAPY GZHZZZZ 07/16/15 INDIVID PSYCHOTHERAP NEC 94.39 09/06/13 OTHER GROUP THERAPY 94.44 05/03/14 RECREATIONAL THERAPY 93.81 08/25/12 Internal Medicine Assmt/Plan - Assessment Assessment: 1.HTN. 2.HYPERLIPIDEMIA. 3.SEIZURE DISORDERED. 4.DEMENTIA. - Plan Plan: CONTINUE ON CURRENT MEDICATION AND DIET. Nutritional Asmnt/Malnutr-PDOC - Dietary Evaluation Malnutrition Findings (Please click <Entered> for more info): Nutritional Asmnt/Malnutrition Start: 07/31/18 13: 00 Text: Status: Complete Freq: Protocol: Document 07/31/18 13:00 DELISA (Rec: 07/31/18 13:08 DELISA [email or web address]) Nutritional Asmnt/Malnutrition Patient General Information Nutritional Screening Moderate Risk Diagnosis psychosis Pertinent Medical Hx/Surgical Hx HTN, DM, CHF, asthma/COPD, dyslipidemia, seizures, arthritis, s/p pneumonia, cardiac arrhythmia, chronic renal disease, scoliosis, dementia, major depression, paranoid schizophrenia, cerebrovascular disease Subjective Information Pt sitting in rec room at time of visit. Pt appeared anxious and walked away when approached. Nursing noted PO intake: 75-100%. Current Diet Order/ Nutrition Support [facility]ch soft ground, MAURA, CCHO, low fat Pertinent Medications seroquel, colace, pepcid, keppra, MOM Pertinent Labs 07/27: Na 135, Cholesterol 223 -226, glucose 99 Nutritional Hx/Data Height 1.57 m Height (Calculated Centimeters) 157.5 Current Weight (lbs) 58.967 kg Weight (Calculated Kilograms) 59.0 Weight (Calculated Grams) 43210.0 [place] Body Weight 118 lb Body Mass Index (BMI) 23.8 Weight Status Approriate GI Symptoms GI Symptoms None Last BM 07/30 Difficult in: None Food Allergies No Skin Integrity/Comment: rosa aldridge 19 Current %PO Good (75-100%) Estimated Nutritional Goals BEE in Kcals: Using Current wt Calories/Kcals/Kg 25-30 Kcals Calculated 9670-7667 Protein: Using Current wt Protein g/k.0 Protein Calculated 59 g Fluid: ml 9592-9761 (1 ml/kcal) Nutritional Problem No current Nutrition Prob Problem no nutrition dx at this time Malnutrition Alert Is there a minimum of two criteria No selected? Query Text:Check all the applicable criteria. A minimum of two criteria are recommended for diagnosis of either severe or non-severe malnutrition. Malnutrition Related to Morbid Obesity Malnutrition related to morbid obesity No Intervention/Recommendation Comments 1. Consider checking HgA1C to assess need for CCHO diet 2. Continue with mech soft ground, MAURA, low fat diet as ordered 3. Monitor PO intake, wt, labs and skin integrity 4. F/U as low risk in 7 days, 08/07 Expected Outcomes/Goals Expected Outcomes/Goals 1. PO intake to continue meeting at least 75% of all meals 2. Wt stability, skin to remain intact, labs to approach WNL Reviewed by Gloria Becker RD
--- NOTE | 2018-08-07 23:39 | Progress Notes ---
DATE: 08/07/2018 SUBJECTIVE: Case was discussed with staff of the patient, reviewed records. The patient continues to be internally preoccupied, selectively mute, would not answer any of my questions. Looking disheveled, disorganized, internally preoccupied. His Seroquel dose was increased yesterday to 175 mg twice a day and he is on Depakote 500 mg twice a day with no side effects, no sedation, no nausea, no extrapyramidal symptoms. His lab work showed CBC with low hematocrit and high monocyte. The rest within normal range. Chemistry panel with low sodium. The rest within normal range with high cholesterol 226 and rest with normal range. Urinalysis within normal range. Depakote level came to 83.2 on 07/05/2018, which is within acceptable therapeutic range and RPR nonreactive and we will continue outpatient group therapy, milieu therapy, adjust medication as needed. JOB# [id number]
[2018-08-08] MEDS: QUEtiapine Fumarate 100 MG, QUEtiapine Fumarate 75 MG PO SCH (08:36)
--- NOTE | 2018-08-08 20:21 | Progress Notes ---
DATE: 08/08/2018 Case was discussed with staff of the patient, reviewed records. The patient continues to be psychotic, continues to have poor insight, internally preoccupied. Unable to make safe plan for self-care or participate in a meaningful conversation, talked to himself according to the staff. His Seroquel was increased on the 08/03/2018 to 175 mg twice a day and increasing it further to 200 mg twice a day and so far no side effects, no sedation, no nausea and no extrapyramidal symptoms. Seroquel ____ working for this patient. Hopefully, it will start working for him and so he is also on Depakote, hopefully, Depakote will improve his response to the antipsychotic and hopefully it happen faster. His Depakote level was 83.2 on 08/01/2018, which is within acceptable therapeutic range and we will continue to work with the patient in group therapy, milieu therapy, and adjust the medications as needed. JOB# [id number]
--- NOTE | 2018-08-08 20:38 | Internal Medicine Prog Note ---
Internal Medicine Subjective - Subjective Service Date: 08/08/18 Patient seen and examined:: without staff Patient is:: awake, verbal, in bed, talking, confused Per staff patient has:: no adverse event Internal Medicine Objective - Results Result Diagrams: 07/27/18 18:40 07/27/18 18:40 Recent Labs: Laboratory Last Values WBC 5.7 Th/cmm (4.8-10.8) 07/27/18 18:40 RBC 4.44 Mil/cmm (3.80-5.80) 07/27/18 18:40 Hgb 12.9 gm/dL (12-16) 07/27/18 18:40 Hct 38.2 % (41.0-60) L 07/27/18 18:40 MCV 86.0 fl (80-99) 07/27/18 18:40 MCH 29.0 pg (27.0-31.0) 07/27/18 18:40 MCHC Differential 33.7 pg (28.0-36.0) 07/27/18 18:40 RDW 15.0 % (11.5-20.0) 07/27/18 18:40 Plt Count 244 Th/cmm (150-400) 07/27/18 18:40 MPV 8.2 fl 07/27/18 18:40 Neutrophils % 57.5 % (40.0-80.0) 07/27/18 18:40 Lymphocytes % 30.2 % (20.0-50.0) 07/27/18 18:40 Monocytes % 10.6 % (2.0-10.0) H 07/27/18 18:40 Eosinophils % 1.0 % (0.0-5.0) 07/27/18 18:40 Basophils % 0.7 % (0.0-2.0) 07/27/18 18:40 Sodium 135 mEq/L (136-145) L 07/27/18 18:40 Potassium 4.1 mEq/L (3.5-5.1) 07/27/18 18:40 Chloride 100 mEq/L (98-107) 07/27/18 18:40 Carbon Dioxide 26.3 mEq/L (21.0-31.0) 07/27/18 18:40 Anion Gap 12.8 (7.0-16.0) 07/27/18 18:40 BUN 17 mg/dL (7-25) 07/27/18 18:40 Creatinine 0.9 mg/dL (0.7-1.3) 07/27/18 18:40 Est GFR ( Amer) > 60.0 ml/min (>90) 07/27/18 18:40 Est GFR (Non-Af Amer) > 60.0 ml/min 07/27/18 18:40 BUN/Creatinine Ratio 18.9 07/27/18 18:40 Glucose 99 mg/dL (70-105) 07/27/18 18:40 Calcium 9.1 mg/dL (8.6-10.3) 07/27/18 18:40 Total Bilirubin 0.5 mg/dL (0.3-1.0) 07/27/18 18:40 AST 19 U/L (13-39) 07/27/18 18:40 ALT 11 U/L (7-52) 07/27/18 18:40 Alkaline Phosphatase 48 U/L (34-104) 07/27/18 18:40 Total Protein 6.8 gm/dL (6.0-8.3) 07/27/18 18:40 Albumin 4.2 gm/dL (4.2-5.5) 07/27/18 18:40 Globulin 2.6 gm/dL 07/27/18 18:40 Albumin/Globulin Ratio 1.6 (1.0-1.8) 07/27/18 18:40 Triglycerides 90 mg/dL (<150) 07/27/18 18:40 Cholesterol 226 mg/dL (<200) H 07/27/18 18:40 LDL Cholesterol Direct 138 mg/dL (75-193) 07/27/18 18:40 HDL Cholesterol 66 mg/dL (23-92) 07/27/18 18:40 TSH 2.17 uIU/ml (0.34-5.60) 07/27/18 18:40 Urine Source CLEAN C 07/27/18 18:30 Urine Color YELLOW 07/27/18 18:30 Urine Clarity CLEAR (CLEAR) 07/27/18 18:30 Urine pH 6.0 (4.6 - 8.0) 07/27/18 18:30 Ur Specific [place] <= 1.005 (1.005-1.030) 07/27/18 18:30 Urine Protein NEGATIVE mg/dL (NEGATIVE) 07/27/18 18:30 Urine Glucose (UA) NEGATIVE mg/dL (NEGATIVE) 07/27/18 18:30 Urine Ketones NEGATIVE mg/dL (NEGATIVE) 07/27/18 18:30 Urine Blood NEGATIVE (NEGATIVE) 07/27/18 18:30 Urine Nitrate NEGATIVE (NEGATIVE) 07/27/18 18:30 Urine Bilirubin NEGATIVE (NEGATIVE) 07/27/18 18:30 Urine Urobilinogen 0.2 E.U./dL (0.2 - 1.0) 07/27/18 18:30 Ur Leukocyte Esterase NEGATIVE (NEGATIVE) 07/27/18 18:30 Urine RBC NONE SEEN /hpf (0-5) 07/27/18 18:30 Urine WBC 0-2 /hpf (0-5) 07/27/18 18:30 Ur Epithelial Cells NONE SEEN /lpf (FEW) 07/27/18 18:30 Urine Bacteria MODERATE /hpf (NONE SEEN) H 07/27/18 18:30 Valproic Acid 83.2 ug/mL (50.0-100.0) 08/01/18 12:45 RPR NONREACTIVE (NONREACTIVE) 07/27/18 18:40 - Physical Exam Vitals and I&O: Vital Signs Temp 97.6 F 08/08/18 20:10 Pulse 85 08/08/18 20:10 Resp 20 08/08/18 20:10 BP 98/63 08/08/18 20:10 Pulse Ox 94 08/08/18 20:10 Intake & Output 08/08/18 08/08/18 08/09/18 06:59 18:59 06:59 Intake Total 240 240 Balance 240 240 Intake: Oral 240 240 Other: # Voids 3 2 # Bowel Movements 0 Active Medications: Current Medications Acetaminophen (Tylenol) 650 mg PO Q4HR PRN PRN Reason: Pain (Mild) Stop: 09/25/18 22:04 Docusate Sodium (Colace) 100 mg PO BID [facility] Stop: 09/26/18 08:59 Last Admin: 08/08/18 16:30 Dose: 100 mg Famotidine (Pepcid) 40 mg PO DAILY JOEL Stop: 09/26/18 08:59 Last Admin: 08/08/18 08:37 Dose: 40 mg Levetiracetam (Keppra) 500 mg PO BID [facility] Stop: 09/26/18 08:59 Last Admin: 08/08/18 16:30 Dose: 500 mg Lorazepam (Ativan) 0.5 mg PO Q4HR PRN; Protocol PRN Reason: Anxiety Stop: 08/26/18 21:50 Last Admin: 08/02/18 16:30 Dose: 0.5 mg Magnesium Hydroxide (Milk Of Magnesia) 30 ml PO HS PRN PRN Reason: constipation Stop: 09/29/18 22:11 Metoprolol Tartrate (Lopressor) 50 mg PO BID [facility] Stop: 09/26/18 08:59 Last Admin: 08/08/18 16:30 Dose: 50 mg Quetiapine Fumarate (Seroquel) 200 mg PO BID [facility] Stop: 10/07/18 16:59 Last Admin: 08/08/18 16:30 Dose: 200 mg Valproate Sodium (Depakene) 500 mg PO BID [facility]; Protocol Stop: 09/27/18 16:59 Last Admin: 08/08/18 16:29 Dose: 500 mg Zolpidem Tartrate (Ambien) 5 mg PO HS PRN PRN Reason: Insomnia Stop: 09/25/18 21:50 Last Admin: 08/07/18 20:26 Dose: 5 mg General: demented HEENT: NC/AT, PERRLA, EOMI, anicteric sclerae, throat clear Neck: Supple, No JVD, No thyromegaly, +2 carotid pulse wo bruit, No LAD Lungs: CTAB Cardiovascular: RRR, Normal S1, Normal S2, without murmur Abdomen: soft, non-tender, non-distended Neurological: no change - Procedures Procedures: Procedures Procedure Code Date GROUP PSYCHOTHERAPY 04550 07/16/15 GROUP PSYCHOTHERAPY GZHZZZZ 07/16/15 INDIVID PSYCHOTHERAP NEC 94.39 09/06/13 OTHER GROUP THERAPY 94.44 05/03/14 RECREATIONAL THERAPY 93.81 08/25/12 Internal Medicine Assmt/Plan - Assessment Assessment: 1.HTN. 2.HYPERLIPIDEMIA. 3.SEIZURE DISORDERED. 4.DEMENTIA. - Plan Plan: CONTINUE ON CURRENT MEDICATION AND DIET. Nutritional Asmnt/Malnutr-PDOC - Dietary Evaluation Malnutrition Findings (Please click <Entered> for more info): Nutritional Asmnt/Malnutrition Start: 07/31/18 13: 00 Text: Status: Complete Freq: Protocol: Document 07/31/18 13:00 DELISA (Rec: 07/31/18 13:08 DELISA [email or web address]) Nutritional Asmnt/Malnutrition Patient General Information Nutritional Screening Moderate Risk Diagnosis psychosis Pertinent Medical Hx/Surgical Hx HTN, DM, CHF, asthma/COPD, dyslipidemia, seizures, arthritis, s/p pneumonia, cardiac arrhythmia, chronic renal disease, scoliosis, dementia, major depression, paranoid schizophrenia, cerebrovascular disease Subjective Information Pt sitting in rec room at time of visit. Pt appeared anxious and walked away when approached. Nursing noted PO intake: 75-100%. Current Diet Order/ Nutrition Support [facility] soft ground, MAURA, CCHO, low fat Pertinent Medications seroquel, colace, pepcid, keppra, MOM Pertinent Labs 07/27: Na 135, Cholesterol 223 -226, glucose 99 Nutritional Hx/Data Height 1.57 m Height (Calculated Centimeters) 157.5 Current Weight (lbs) 58.967 kg Weight (Calculated Kilograms) 59.0 Weight (Calculated Grams) 71561.0 [place] Body Weight 118 lb Body Mass Index (BMI) 23.8 Weight Status Approriate GI Symptoms GI Symptoms None Last BM 07/30 Difficult in: None Food Allergies No Skin Integrity/Comment: rosa aldridge 19 Current %PO Good (75-100%) Estimated Nutritional Goals BEE in Kcals: Using Current wt Calories/Kcals/Kg 25-30 Kcals Calculated 1269-8672 Protein: Using Current wt Protein g/k.0 Protein Calculated 59 g Fluid: ml 0429-2024 (1 ml/kcal) Nutritional Problem No current Nutrition Prob Problem no nutrition dx at this time Malnutrition Alert Is there a minimum of two criteria No selected? Query Text:Check all the applicable criteria. A minimum of two criteria are recommended for diagnosis of either severe or non-severe malnutrition. Malnutrition Related to Morbid Obesity Malnutrition related to morbid obesity No Intervention/Recommendation Comments 1. Consider checking HgA1C to assess need for CCHO diet 2. Continue with [facility] soft ground, MAURA, low fat diet as ordered 3. Monitor PO intake, wt, labs and skin integrity 4. F/U as low risk in 7 days, 08/07 Expected Outcomes/Goals Expected Outcomes/Goals 1. PO intake to continue meeting at least 75% of all meals 2. Wt stability, skin to remain intact, labs to approach WNL Reviewed by Gloria Becker RD
--- NOTE | 2018-08-09 09:29 | Progress Notes ---
DATE: 08/09/2018 Case was discussed with staff of the patient, reviewed records. The patient continues to be internally preoccupied. Continues to be selectively mute. Continues to be unable to make safe plan for self-care or participate in meaningful conversation. I did increase his Seroquel dose yesterday to 200 mg twice a day. I will be adding Risperdal to his medication because of his poor response to the Seroquel, though in the past he did do well on it. So far his Depakote level is 83, which is within acceptable therapeutic range. He has been taking his medication with no side effects. No sedation, no nausea, no extrapyramidal symptoms. We will continue outpatient therapy, milieu therapy, adjust medication as needed. JOB# [id number]
--- NOTE | 2018-08-09 20:07 | Internal Medicine Prog Note ---
Internal Medicine Subjective - Subjective Service Date: 08/09/18 Patient seen and examined:: with staff Patient is:: awake, verbal, in bed, talking, confused Per staff patient has:: no adverse event Internal Medicine Objective - Results Result Diagrams: 07/27/18 18:40 07/27/18 18:40 Recent Labs: Laboratory Last Values WBC 5.7 Th/cmm (4.8-10.8) 07/27/18 18:40 RBC 4.44 Mil/cmm (3.80-5.80) 07/27/18 18:40 Hgb 12.9 gm/dL (12-16) 07/27/18 18:40 Hct 38.2 % (41.0-60) L 07/27/18 18:40 MCV 86.0 fl (80-99) 07/27/18 18:40 MCH 29.0 pg (27.0-31.0) 07/27/18 18:40 MCHC Differential 33.7 pg (28.0-36.0) 07/27/18 18:40 RDW 15.0 % (11.5-20.0) 07/27/18 18:40 Plt Count 244 Th/cmm (150-400) 07/27/18 18:40 MPV 8.2 fl 07/27/18 18:40 Neutrophils % 57.5 % (40.0-80.0) 07/27/18 18:40 Lymphocytes % 30.2 % (20.0-50.0) 07/27/18 18:40 Monocytes % 10.6 % (2.0-10.0) H 07/27/18 18:40 Eosinophils % 1.0 % (0.0-5.0) 07/27/18 18:40 Basophils % 0.7 % (0.0-2.0) 07/27/18 18:40 Sodium 135 mEq/L (136-145) L 07/27/18 18:40 Potassium 4.1 mEq/L (3.5-5.1) 07/27/18 18:40 Chloride 100 mEq/L (98-107) 07/27/18 18:40 Carbon Dioxide 26.3 mEq/L (21.0-31.0) 07/27/18 18:40 Anion Gap 12.8 (7.0-16.0) 07/27/18 18:40 BUN 17 mg/dL (7-25) 07/27/18 18:40 Creatinine 0.9 mg/dL (0.7-1.3) 07/27/18 18:40 Est GFR ( Amer) > 60.0 ml/min (>90) 07/27/18 18:40 Est GFR (Non-Af Amer) > 60.0 ml/min 07/27/18 18:40 BUN/Creatinine Ratio 18.9 07/27/18 18:40 Glucose 99 mg/dL (70-105) 07/27/18 18:40 Calcium 9.1 mg/dL (8.6-10.3) 07/27/18 18:40 Total Bilirubin 0.5 mg/dL (0.3-1.0) 07/27/18 18:40 AST 19 U/L (13-39) 07/27/18 18:40 ALT 11 U/L (7-52) 07/27/18 18:40 Alkaline Phosphatase 48 U/L (34-104) 07/27/18 18:40 Total Protein 6.8 gm/dL (6.0-8.3) 07/27/18 18:40 Albumin 4.2 gm/dL (4.2-5.5) 07/27/18 18:40 Globulin 2.6 gm/dL 07/27/18 18:40 Albumin/Globulin Ratio 1.6 (1.0-1.8) 07/27/18 18:40 Triglycerides 90 mg/dL (<150) 07/27/18 18:40 Cholesterol 226 mg/dL (<200) H 07/27/18 18:40 LDL Cholesterol Direct 138 mg/dL (75-193) 07/27/18 18:40 HDL Cholesterol 66 mg/dL (23-92) 07/27/18 18:40 TSH 2.17 uIU/ml (0.34-5.60) 07/27/18 18:40 Urine Source CLEAN C 07/27/18 18:30 Urine Color YELLOW 07/27/18 18:30 Urine Clarity CLEAR (CLEAR) 07/27/18 18:30 Urine pH 6.0 (4.6 - 8.0) 07/27/18 18:30 Ur Specific [place] <= 1.005 (1.005-1.030) 07/27/18 18:30 Urine Protein NEGATIVE mg/dL (NEGATIVE) 07/27/18 18:30 Urine Glucose (UA) NEGATIVE mg/dL (NEGATIVE) 07/27/18 18:30 Urine Ketones NEGATIVE mg/dL (NEGATIVE) 07/27/18 18:30 Urine Blood NEGATIVE (NEGATIVE) 07/27/18 18:30 Urine Nitrate NEGATIVE (NEGATIVE) 07/27/18 18:30 Urine Bilirubin NEGATIVE (NEGATIVE) 07/27/18 18:30 Urine Urobilinogen 0.2 E.U./dL (0.2 - 1.0) 07/27/18 18:30 Ur Leukocyte Esterase NEGATIVE (NEGATIVE) 07/27/18 18:30 Urine RBC NONE SEEN /hpf (0-5) 07/27/18 18:30 Urine WBC 0-2 /hpf (0-5) 07/27/18 18:30 Ur Epithelial Cells NONE SEEN /lpf (FEW) 07/27/18 18:30 Urine Bacteria MODERATE /hpf (NONE SEEN) H 07/27/18 18:30 Valproic Acid 83.2 ug/mL (50.0-100.0) 08/01/18 12:45 RPR NONREACTIVE (NONREACTIVE) 07/27/18 18:40 - Physical Exam Vitals and I&O: Vital Signs Temp 97 F 08/09/18 15:06 Pulse 70 08/09/18 18:03 Resp 18 08/09/18 15:06 BP 90/65 08/09/18 18:03 Pulse Ox 95 08/09/18 15:06 Intake & Output 08/09/18 08/09/18 08/10/18 06:59 18:59 06:59 Intake Total 360 Balance 360 Intake: Oral 360 Other: # Voids 1 2 # Bowel Movements 0 1 Active Medications: Current Medications Acetaminophen (Tylenol) 650 mg PO Q4HR PRN PRN Reason: Pain (Mild) Stop: 09/25/18 22:04 Docusate Sodium (Colace) 100 mg PO BID [facility] Stop: 09/26/18 08:59 Last Admin: 08/09/18 18:03 Dose: 100 mg Famotidine (Pepcid) 40 mg PO DAILY JOEL Stop: 09/26/18 08:59 Last Admin: 08/09/18 08:32 Dose: 40 mg Levetiracetam (Keppra) 500 mg PO BID [facility] Stop: 09/26/18 08:59 Last Admin: 08/09/18 18:03 Dose: 500 mg Lorazepam (Ativan) 0.5 mg PO Q4HR PRN; Protocol PRN Reason: Anxiety Stop: 08/26/18 21:50 Last Admin: 08/02/18 16:30 Dose: 0.5 mg Magnesium Hydroxide (Milk Of Magnesia) 30 ml PO HS PRN PRN Reason: constipation Stop: 09/29/18 22:11 Metoprolol Tartrate (Lopressor) 50 mg PO BID JOEL Stop: 09/26/18 08:59 Last Admin: 08/09/18 18:03 Dose: 50 mg Quetiapine Fumarate (Seroquel) 200 mg PO BID [facility] Stop: 10/07/18 16:59 Last Admin: 08/09/18 18:03 Dose: 200 mg Risperidone (Risperdal) 0.5 mg PO BID [facility]; Protocol Stop: 10/08/18 08:59 Last Admin: 08/09/18 18:03 Dose: 0.5 mg Valproate Sodium (Depakene) 500 mg PO BID [facility]; Protocol Stop: 09/27/18 16:59 Last Admin: 08/09/18 18:01 Dose: 500 mg Zolpidem Tartrate (Ambien) 5 mg PO HS PRN PRN Reason: Insomnia Stop: 09/25/18 21:50 Last Admin: 08/07/18 20:26 Dose: 5 mg General: demented HEENT: NC/AT, PERRLA, EOMI, anicteric sclerae, throat clear Neck: Supple, No JVD, No thyromegaly, +2 carotid pulse wo bruit, No LAD Lungs: CTAB Cardiovascular: RRR, Normal S1, Normal S2, without murmur Abdomen: soft, non-tender, non-distended Neurological: no change - Procedures Procedures: Procedures Procedure Code Date GROUP PSYCHOTHERAPY 13490 07/16/15 GROUP PSYCHOTHERAPY GZHZZZZ 07/16/15 INDIVID PSYCHOTHERAP NEC 94.39 09/06/13 OTHER GROUP THERAPY 94.44 05/03/14 RECREATIONAL THERAPY 93.81 08/25/12 Internal Medicine Assmt/Plan - Assessment Assessment: 1.HTN. 2.HYPERLIPIDEMIA. 3.SEIZURE DISORDERED. 4.DEMENTIA. - Plan Plan: CONTINUE ON CURRENT MEDICATION AND DIET. Nutritional Asmnt/Malnutr-PDOC - Dietary Evaluation Malnutrition Findings (Please click <Entered> for more info): Nutritional Asmnt/Malnutrition Start: 07/31/18 13: 00 Text: Status: Complete Freq: Protocol: Document 07/31/18 13:00 DELISA (Rec: 07/31/18 13:08 DELISA [email or web address]) Nutritional Asmnt/Malnutrition Patient General Information Nutritional Screening Moderate Risk Diagnosis psychosis Pertinent Medical Hx/Surgical Hx HTN, DM, CHF, asthma/COPD, dyslipidemia, seizures, arthritis, s/p pneumonia, cardiac arrhythmia, chronic renal disease, scoliosis, dementia, major depression, paranoid schizophrenia, cerebrovascular disease Subjective Information Pt sitting in rec room at time of visit. Pt appeared anxious and walked away when approached. Nursing noted PO intake: 75-100%. Current Diet Order/ Nutrition Support [facility] soft ground, MAURA, CCHO, low fat Pertinent Medications seroquel, colace, pepcid, keppra, MOM Pertinent Labs 07/27: Na 135, Cholesterol 223 -226, glucose 99 Nutritional Hx/Data Height 1.57 m Height (Calculated Centimeters) 157.5 Current Weight (lbs) 58.967 kg Weight (Calculated Kilograms) 59.0 Weight (Calculated Grams) 19078.0 [place] Body Weight 118 lb Body Mass Index (BMI) 23.8 Weight Status Approriate GI Symptoms GI Symptoms None Last BM 07/30 Difficult in: None Food Allergies No Skin Integrity/Comment: intact, rosa 19 Current %PO Good (75-100%) Estimated Nutritional Goals BEE in Kcals: Using Current wt Calories/Kcals/Kg 25-30 Kcals Calculated 9168-7570 Protein: Using Current wt Protein g/k.0 Protein Calculated 59 g Fluid: ml 1768-6326 (1 ml/kcal) Nutritional Problem No current Nutrition Prob Problem no nutrition dx at this time Malnutrition Alert Is there a minimum of two criteria No selected? Query Text:Check all the applicable criteria. A minimum of two criteria are recommended for diagnosis of either severe or non-severe malnutrition. Malnutrition Related to Morbid Obesity Malnutrition related to morbid obesity No Intervention/Recommendation Comments 1. Consider checking HgA1C to assess need for CCHO diet 2. Continue with [facility] soft ground, MAURA, low fat diet as ordered 3. Monitor PO intake, wt, labs and skin integrity 4. F/U as low risk in 7 days, 08/07 Expected Outcomes/Goals Expected Outcomes/Goals 1. PO intake to continue meeting at least 75% of all meals 2. Wt stability, skin to remain intact, labs to approach WNL Reviewed by Gloria Becker RD
--- NOTE | 2018-08-10 22:10 | Progress Notes ---
DATE: 08/10/2018 SUBJECTIVE: Case was discussed with staff of the patient, reviewed records. The patient continues to be psychotic, internally preoccupied, and keeping to himself. When he saw me today, he turns his head to the other side, so some staff states that they were talking to him. The patient continues to be unpredictable, impulsive, and internally preoccupied. He is compliant with the medication with no side effects, no sedation, no nausea, and no extrapyramidal symptoms. I did add Risperdal to his medication yesterday to help improve his response to the medication 0.5 mg twice a day with no side effects, no sedation, no nausea, and no extrapyramidal symptoms. I will be increasing the dose to 1 mg twice a day as it may work better for him in combination with the Seroquel because of his severe psychosis with poor response to the medication so far; though, the Risperdal has a history of working for this patient. We will continue to work with the patient in group therapy, milieu therapy, and adjust the medications as needed. JOB# [id number]
--- NOTE | 2018-08-10 22:13 | Internal Medicine Prog Note ---
Internal Medicine Subjective - Subjective Service Date: 08/10/18 Patient seen and examined:: with staff Patient is:: awake, verbal, in bed, talking, confused Per staff patient has:: no adverse event Internal Medicine Objective - Results Result Diagrams: 07/27/18 18:40 07/27/18 18:40 Recent Labs: Laboratory Last Values WBC 5.7 Th/cmm (4.8-10.8) 07/27/18 18:40 RBC 4.44 Mil/cmm (3.80-5.80) 07/27/18 18:40 Hgb 12.9 gm/dL (12-16) 07/27/18 18:40 Hct 38.2 % (41.0-60) L 07/27/18 18:40 MCV 86.0 fl (80-99) 07/27/18 18:40 MCH 29.0 pg (27.0-31.0) 07/27/18 18:40 MCHC Differential 33.7 pg (28.0-36.0) 07/27/18 18:40 RDW 15.0 % (11.5-20.0) 07/27/18 18:40 Plt Count 244 Th/cmm (150-400) 07/27/18 18:40 MPV 8.2 fl 07/27/18 18:40 Neutrophils % 57.5 % (40.0-80.0) 07/27/18 18:40 Lymphocytes % 30.2 % (20.0-50.0) 07/27/18 18:40 Monocytes % 10.6 % (2.0-10.0) H 07/27/18 18:40 Eosinophils % 1.0 % (0.0-5.0) 07/27/18 18:40 Basophils % 0.7 % (0.0-2.0) 07/27/18 18:40 Sodium 135 mEq/L (136-145) L 07/27/18 18:40 Potassium 4.1 mEq/L (3.5-5.1) 07/27/18 18:40 Chloride 100 mEq/L (98-107) 07/27/18 18:40 Carbon Dioxide 26.3 mEq/L (21.0-31.0) 07/27/18 18:40 Anion Gap 12.8 (7.0-16.0) 07/27/18 18:40 BUN 17 mg/dL (7-25) 07/27/18 18:40 Creatinine 0.9 mg/dL (0.7-1.3) 07/27/18 18:40 Est GFR ( Amer) > 60.0 ml/min (>90) 07/27/18 18:40 Est GFR (Non-Af Amer) > 60.0 ml/min 07/27/18 18:40 BUN/Creatinine Ratio 18.9 07/27/18 18:40 Glucose 99 mg/dL (70-105) 07/27/18 18:40 Calcium 9.1 mg/dL (8.6-10.3) 07/27/18 18:40 Total Bilirubin 0.5 mg/dL (0.3-1.0) 07/27/18 18:40 AST 19 U/L (13-39) 07/27/18 18:40 ALT 11 U/L (7-52) 07/27/18 18:40 Alkaline Phosphatase 48 U/L (34-104) 07/27/18 18:40 Total Protein 6.8 gm/dL (6.0-8.3) 07/27/18 18:40 Albumin 4.2 gm/dL (4.2-5.5) 07/27/18 18:40 Globulin 2.6 gm/dL 07/27/18 18:40 Albumin/Globulin Ratio 1.6 (1.0-1.8) 07/27/18 18:40 Triglycerides 90 mg/dL (<150) 07/27/18 18:40 Cholesterol 226 mg/dL (<200) H 07/27/18 18:40 LDL Cholesterol Direct 138 mg/dL (75-193) 07/27/18 18:40 HDL Cholesterol 66 mg/dL (23-92) 07/27/18 18:40 TSH 2.17 uIU/ml (0.34-5.60) 07/27/18 18:40 Urine Source CLEAN C 07/27/18 18:30 Urine Color YELLOW 07/27/18 18:30 Urine Clarity CLEAR (CLEAR) 07/27/18 18:30 Urine pH 6.0 (4.6 - 8.0) 07/27/18 18:30 Ur Specific [place] <= 1.005 (1.005-1.030) 07/27/18 18:30 Urine Protein NEGATIVE mg/dL (NEGATIVE) 07/27/18 18:30 Urine Glucose (UA) NEGATIVE mg/dL (NEGATIVE) 07/27/18 18:30 Urine Ketones NEGATIVE mg/dL (NEGATIVE) 07/27/18 18:30 Urine Blood NEGATIVE (NEGATIVE) 07/27/18 18:30 Urine Nitrate NEGATIVE (NEGATIVE) 07/27/18 18:30 Urine Bilirubin NEGATIVE (NEGATIVE) 07/27/18 18:30 Urine Urobilinogen 0.2 E.U./dL (0.2 - 1.0) 07/27/18 18:30 Ur Leukocyte Esterase NEGATIVE (NEGATIVE) 07/27/18 18:30 Urine RBC NONE SEEN /hpf (0-5) 07/27/18 18:30 Urine WBC 0-2 /hpf (0-5) 07/27/18 18:30 Ur Epithelial Cells NONE SEEN /lpf (FEW) 07/27/18 18:30 Urine Bacteria MODERATE /hpf (NONE SEEN) H 07/27/18 18:30 Valproic Acid 83.2 ug/mL (50.0-100.0) 08/01/18 12:45 RPR NONREACTIVE (NONREACTIVE) 07/27/18 18:40 - Physical Exam Vitals and I&O: Vital Signs Temp 98.1 F 08/10/18 20:54 Pulse 82 08/10/18 20:54 Resp 19 08/10/18 20:54 BP 107/68 08/10/18 20:54 Pulse Ox 96 08/10/18 20:54 Intake & Output 08/10/18 08/10/18 08/11/18 06:59 18:59 06:59 Intake Total 0 Balance 1920 Intake: Oral 0 Other: # Voids 4 # Bowel Movements 1 Active Medications: Current Medications Acetaminophen (Tylenol) 650 mg PO Q4HR PRN PRN Reason: Pain (Mild) Stop: 09/25/18 22:04 Docusate Sodium (Colace) 100 mg PO BID [facility] Stop: 09/26/18 08:59 Last Admin: 08/10/18 17:03 Dose: 100 mg Famotidine (Pepcid) 40 mg PO DAILY JOEL Stop: 09/26/18 08:59 Last Admin: 08/10/18 08:32 Dose: 40 mg Levetiracetam (Keppra) 500 mg PO BID [facility] Stop: 09/26/18 08:59 Last Admin: 08/10/18 17:04 Dose: 500 mg Lorazepam (Ativan) 0.5 mg PO Q4HR PRN; Protocol PRN Reason: Anxiety Stop: 08/26/18 21:50 Last Admin: 08/02/18 16:30 Dose: 0.5 mg Magnesium Hydroxide (Milk Of Magnesia) 30 ml PO HS PRN PRN Reason: constipation Stop: 09/29/18 22:11 Metoprolol Tartrate (Lopressor) 50 mg PO BID JOEL Stop: 09/26/18 08:59 Last Admin: 08/10/18 17:04 Dose: 50 mg Quetiapine Fumarate (Seroquel) 200 mg PO BID [facility] Stop: 10/07/18 16:59 Last Admin: 08/10/18 17:03 Dose: 200 mg Risperidone (Risperdal) 1 mg PO BID [facility]; Protocol Stop: 10/09/18 16:59 Last Admin: 08/10/18 17:03 Dose: 1 mg Valproate Sodium (Depakene) 500 mg PO BID [facility]; Protocol Stop: 09/27/18 16:59 Last Admin: 08/10/18 17:03 Dose: 500 mg Zolpidem Tartrate (Ambien) 5 mg PO HS PRN PRN Reason: Insomnia Stop: 09/25/18 21:50 Last Admin: 08/07/18 20:26 Dose: 5 mg General: demented HEENT: NC/AT, PERRLA, EOMI, anicteric sclerae, throat clear Neck: Supple, No JVD, No thyromegaly, +2 carotid pulse wo bruit, No LAD Lungs: CTAB Cardiovascular: RRR, Normal S1, Normal S2, without murmur Abdomen: soft, non-tender, non-distended Neurological: no change - Procedures Procedures: Procedures Procedure Code Date GROUP PSYCHOTHERAPY 05542 07/16/15 GROUP PSYCHOTHERAPY GZHZZZZ 07/16/15 INDIVID PSYCHOTHERAP NEC 94.39 09/06/13 OTHER GROUP THERAPY 94.44 05/03/14 RECREATIONAL THERAPY 93.81 08/25/12 Internal Medicine Assmt/Plan - Assessment Assessment: 1.HTN. 2.HYPERLIPIDEMIA. 3.SEIZURE DISORDERED. 4.DEMENTIA. - Plan Plan: CONTINUE ON CURRENT MEDICATION AND DIET. Nutritional Asmnt/Malnutr-PDOC - Dietary Evaluation Malnutrition Findings (Please click <Entered> for more info): Nutritional Asmnt/Malnutrition Start: 07/31/18 13: 00 Text: Status: Complete Freq: Protocol: Document 07/31/18 13:00 DELISA (Rec: 07/31/18 13:08 DELISA [email or web address]) Nutritional Asmnt/Malnutrition Patient General Information Nutritional Screening Moderate Risk Diagnosis psychosis Pertinent Medical Hx/Surgical Hx HTN, DM, CHF, asthma/COPD, dyslipidemia, seizures, arthritis, s/p pneumonia, cardiac arrhythmia, chronic renal disease, scoliosis, dementia, major depression, paranoid schizophrenia, cerebrovascular disease Subjective Information Pt sitting in rec room at time of visit. Pt appeared anxious and walked away when approached. Nursing noted PO intake: 75-100%. Current Diet Order/ Nutrition Support [facility] soft ground, MAURA, CCHO, low fat Pertinent Medications seroquel, colace, pepcid, keppra, MOM Pertinent Labs 07/27: Na 135, Cholesterol 223 -226, glucose 99 Nutritional Hx/Data Height 1.57 m Height (Calculated Centimeters) 157.5 Current Weight (lbs) 58.967 kg Weight (Calculated Kilograms) 59.0 Weight (Calculated Grams) 28634.0 [place] Body Weight 118 lb Body Mass Index (BMI) 23.8 Weight Status Approriate GI Symptoms GI Symptoms None Last BM 07/30 Difficult in: None Food Allergies No Skin Integrity/Comment: intact, rosa 19 Current %PO Good (75-100%) Estimated Nutritional Goals BEE in Kcals: Using Current wt Calories/Kcals/Kg 25-30 Kcals Calculated 2071-6590 Protein: Using Current wt Protein g/k.0 Protein Calculated 59 g Fluid: ml 1439-4167 (1 ml/kcal) Nutritional Problem No current Nutrition Prob Problem no nutrition dx at this time Malnutrition Alert Is there a minimum of two criteria No selected? Query Text:Check all the applicable criteria. A minimum of two criteria are recommended for diagnosis of either severe or non-severe malnutrition. Malnutrition Related to Morbid Obesity Malnutrition related to morbid obesity No Intervention/Recommendation Comments 1. Consider checking HgA1C to assess need for CCHO diet 2. Continue with [facility] soft ground, MAURA, low fat diet as ordered 3. Monitor PO intake, wt, labs and skin integrity 4. F/U as low risk in 7 days, 08/07 Expected Outcomes/Goals Expected Outcomes/Goals 1. PO intake to continue meeting at least 75% of all meals 2. Wt stability, skin to remain intact, labs to approach WNL Reviewed by Gloria Becker RD
--- NOTE | 2018-08-11 13:35 | Progress Notes ---
DATE: 08/11/2018 Case was discussed with staff of the patient, reviewed records. The patient continues to be internally preoccupied. He continues to be isolating with poor response, not participating in conversation, talking to himself, , unpredictable, impulsive and needing redirection. He has been compliant with the medication with no side effects, tolerating increase in Risperdal. His lab work showed low hematocrit and high monocyte, the rest within normal range. Chemistry panel with low sodium at 135, the rest within normal range. High cholesterol, the rest of lipid panel within normal range. Urinalysis within moderate bacteria, the rest within normal range. His Depakote level was 83.2, which is within acceptable range, which also means the patient has been compliant with the medication, no side effects with the medication, no sedation, no nausea, no extrapyramidal symptoms. RPR is nonreactive and we will continue outpatient group therapy, milieu therapy, adjust medication as needed. [facility]# [id number]
--- NOTE | 2018-08-11 22:22 | Internal Medicine Prog Note ---
Internal Medicine Subjective - Subjective Service Date: 08/11/18 Patient seen and examined:: with staff Patient is:: awake, verbal, in bed, talking, confused Per staff patient has:: no adverse event Internal Medicine Objective - Results Result Diagrams: 07/27/18 18:40 07/27/18 18:40 Recent Labs: Laboratory Last Values WBC 5.7 Th/cmm (4.8-10.8) 07/27/18 18:40 RBC 4.44 Mil/cmm (3.80-5.80) 07/27/18 18:40 Hgb 12.9 gm/dL (12-16) 07/27/18 18:40 Hct 38.2 % (41.0-60) L 07/27/18 18:40 MCV 86.0 fl (80-99) 07/27/18 18:40 MCH 29.0 pg (27.0-31.0) 07/27/18 18:40 MCHC Differential 33.7 pg (28.0-36.0) 07/27/18 18:40 RDW 15.0 % (11.5-20.0) 07/27/18 18:40 Plt Count 244 Th/cmm (150-400) 07/27/18 18:40 MPV 8.2 fl 07/27/18 18:40 Neutrophils % 57.5 % (40.0-80.0) 07/27/18 18:40 Lymphocytes % 30.2 % (20.0-50.0) 07/27/18 18:40 Monocytes % 10.6 % (2.0-10.0) H 07/27/18 18:40 Eosinophils % 1.0 % (0.0-5.0) 07/27/18 18:40 Basophils % 0.7 % (0.0-2.0) 07/27/18 18:40 Sodium 135 mEq/L (136-145) L 07/27/18 18:40 Potassium 4.1 mEq/L (3.5-5.1) 07/27/18 18:40 Chloride 100 mEq/L (98-107) 07/27/18 18:40 Carbon Dioxide 26.3 mEq/L (21.0-31.0) 07/27/18 18:40 Anion Gap 12.8 (7.0-16.0) 07/27/18 18:40 BUN 17 mg/dL (7-25) 07/27/18 18:40 Creatinine 0.9 mg/dL (0.7-1.3) 07/27/18 18:40 Est GFR ( Amer) > 60.0 ml/min (>90) 07/27/18 18:40 Est GFR (Non-Af Amer) > 60.0 ml/min 07/27/18 18:40 BUN/Creatinine Ratio 18.9 07/27/18 18:40 Glucose 99 mg/dL (70-105) 07/27/18 18:40 Calcium 9.1 mg/dL (8.6-10.3) 07/27/18 18:40 Total Bilirubin 0.5 mg/dL (0.3-1.0) 07/27/18 18:40 AST 19 U/L (13-39) 07/27/18 18:40 ALT 11 U/L (7-52) 07/27/18 18:40 Alkaline Phosphatase 48 U/L (34-104) 07/27/18 18:40 Total Protein 6.8 gm/dL (6.0-8.3) 07/27/18 18:40 Albumin 4.2 gm/dL (4.2-5.5) 07/27/18 18:40 Globulin 2.6 gm/dL 07/27/18 18:40 Albumin/Globulin Ratio 1.6 (1.0-1.8) 07/27/18 18:40 Triglycerides 90 mg/dL (<150) 07/27/18 18:40 Cholesterol 226 mg/dL (<200) H 07/27/18 18:40 LDL Cholesterol Direct 138 mg/dL (75-193) 07/27/18 18:40 HDL Cholesterol 66 mg/dL (23-92) 07/27/18 18:40 TSH 2.17 uIU/ml (0.34-5.60) 07/27/18 18:40 Urine Source CLEAN C 07/27/18 18:30 Urine Color YELLOW 07/27/18 18:30 Urine Clarity CLEAR (CLEAR) 07/27/18 18:30 Urine pH 6.0 (4.6 - 8.0) 07/27/18 18:30 Ur Specific Jermyn <= 1.005 (1.005-1.030) 07/27/18 18:30 Urine Protein NEGATIVE mg/dL (NEGATIVE) 07/27/18 18:30 Urine Glucose (UA) NEGATIVE mg/dL (NEGATIVE) 07/27/18 18:30 Urine Ketones NEGATIVE mg/dL (NEGATIVE) 07/27/18 18:30 Urine Blood NEGATIVE (NEGATIVE) 07/27/18 18:30 Urine Nitrate NEGATIVE (NEGATIVE) 07/27/18 18:30 Urine Bilirubin NEGATIVE (NEGATIVE) 07/27/18 18:30 Urine Urobilinogen 0.2 E.U./dL (0.2 - 1.0) 07/27/18 18:30 Ur Leukocyte Esterase NEGATIVE (NEGATIVE) 07/27/18 18:30 Urine RBC NONE SEEN /hpf (0-5) 07/27/18 18:30 Urine WBC 0-2 /hpf (0-5) 07/27/18 18:30 Ur Epithelial Cells NONE SEEN /lpf (FEW) 07/27/18 18:30 Urine Bacteria MODERATE /hpf (NONE SEEN) H 07/27/18 18:30 Valproic Acid 83.2 ug/mL (50.0-100.0) 08/01/18 12:45 RPR NONREACTIVE (NONREACTIVE) 07/27/18 18:40 - Physical Exam Vitals and I&O: Vital Signs Temp 97.0 F 08/11/18 20:33 Pulse 80 08/11/18 20:33 Resp 18 08/11/18 20:33 BP 112/70 08/11/18 20:33 Pulse Ox 100 08/11/18 20:33 Intake & Output 08/11/18 08/11/18 08/12/18 06:59 18:59 06:59 Intake Total 120 1100 Balance 120 1100 Intake: Oral 120 1100 Other: # Voids 3 4 # Bowel Movements 1 Active Medications: Current Medications Acetaminophen (Tylenol) 650 mg PO Q4HR PRN PRN Reason: Pain (Mild) Stop: 09/25/18 22:04 Docusate Sodium (Colace) 100 mg PO BID [facility] Stop: 09/26/18 08:59 Last Admin: 08/11/18 16:19 Dose: 100 mg Famotidine (Pepcid) 40 mg PO DAILY [facility] Stop: 09/26/18 08:59 Last Admin: 08/11/18 08:11 Dose: 40 mg Levetiracetam (Keppra) 500 mg PO BID [facility] Stop: 09/26/18 08:59 Last Admin: 08/11/18 16:19 Dose: 500 mg Lorazepam (Ativan) 0.5 mg PO Q4HR PRN; Protocol PRN Reason: Anxiety Stop: 08/26/18 21:50 Last Admin: 08/02/18 16:30 Dose: 0.5 mg Magnesium Hydroxide (Milk Of Magnesia) 30 ml PO HS PRN PRN Reason: constipation Stop: 09/29/18 22:11 Metoprolol Tartrate (Lopressor) 50 mg PO BID [facility] Stop: 09/26/18 08:59 Last Admin: 08/11/18 16:17 Dose: 50 mg Quetiapine Fumarate (Seroquel) 200 mg PO BID [facility] Stop: 10/07/18 16:59 Last Admin: 08/11/18 16:18 Dose: 200 mg Risperidone (Risperdal) 1 mg PO BID [facility]; Protocol Stop: 10/09/18 16:59 Last Admin: 08/11/18 16:18 Dose: 1 mg Valproate Sodium (Depakene) 500 mg PO BID [facility]; Protocol Stop: 09/27/18 16:59 Last Admin: 08/11/18 16:16 Dose: 500 mg Zolpidem Tartrate (Ambien) 5 mg PO HS PRN PRN Reason: Insomnia Stop: 09/25/18 21:50 Last Admin: 08/07/18 20:26 Dose: 5 mg General: demented HEENT: NC/AT, PERRLA, EOMI, anicteric sclerae, throat clear Neck: Supple, No JVD, No thyromegaly, +2 carotid pulse wo bruit, No LAD Lungs: CTAB Cardiovascular: RRR, Normal S1, Normal S2, without murmur Abdomen: soft, non-tender, non-distended Neurological: no change - Procedures Procedures: Procedures Procedure Code Date GROUP PSYCHOTHERAPY 90639 07/16/15 GROUP PSYCHOTHERAPY GZHZZZZ 07/16/15 INDIVID PSYCHOTHERAP NEC 94.39 09/06/13 OTHER GROUP THERAPY 94.44 05/03/14 RECREATIONAL THERAPY 93.81 08/25/12 Internal Medicine Assmt/Plan - Assessment Assessment: 1.HTN. 2.HYPERLIPIDEMIA. 3.SEIZURE DISORDERED. 4.DEMENTIA. - Plan Plan: CONTINUE ON CURRENT MEDICATION AND DIET. Nutritional Asmnt/Malnutr-PDOC - Dietary Evaluation Malnutrition Findings (Please click <Entered> for more info): Nutritional Asmnt/Malnutrition Start: 07/31/18 13: 00 Text: Status: Complete Freq: Protocol: Document 07/31/18 13:00 DELISA (Rec: 07/31/18 13:08 DELISA [email or web address]) Nutritional Asmnt/Malnutrition Patient General Information Nutritional Screening Moderate Risk Diagnosis psychosis Pertinent Medical Hx/Surgical Hx HTN, DM, CHF, asthma/COPD, dyslipidemia, seizures, arthritis, s/p pneumonia, cardiac arrhythmia, chronic renal disease, scoliosis, dementia, major depression, paranoid schizophrenia, cerebrovascular disease Subjective Information Pt sitting in rec room at time of visit. Pt appeared anxious and walked away when approached. Nursing noted PO intake: 75-100%. Current Diet Order/ Nutrition Support [facility] soft ground, MAURA, CCHO, low fat Pertinent Medications seroquel, colace, pepcid, keppra, MOM Pertinent Labs 07/27: Na 135, Cholesterol 223 -226, glucose 99 Nutritional Hx/Data Height 1.57 m Height (Calculated Centimeters) 157.5 Current Weight (lbs) 58.967 kg Weight (Calculated Kilograms) 59.0 Weight (Calculated Grams) 12706.0 [place] Body Weight 118 lb Body Mass Index (BMI) 23.8 Weight Status Approriate GI Symptoms GI Symptoms None Last BM 07/30 Difficult in: None Food Allergies No Skin Integrity/Comment: intact, rosa 19 Current %PO Good (75-100%) Estimated Nutritional Goals BEE in Kcals: Using Current wt Calories/Kcals/Kg 25-30 Kcals Calculated 5764-4711 Protein: Using Current wt Protein g/k.0 Protein Calculated 59 g Fluid: ml 7780-1776 (1 ml/kcal) Nutritional Problem No current Nutrition Prob Problem no nutrition dx at this time Malnutrition Alert Is there a minimum of two criteria No selected? Query Text:Check all the applicable criteria. A minimum of two criteria are recommended for diagnosis of either severe or non-severe malnutrition. Malnutrition Related to Morbid Obesity Malnutrition related to morbid obesity No Intervention/Recommendation Comments 1. Consider checking HgA1C to assess need for CCHO diet 2. Continue with [facility] soft ground, MAURA, low fat diet as ordered 3. Monitor PO intake, wt, labs and skin integrity 4. F/U as low risk in 7 days, 08/07 Expected Outcomes/Goals Expected Outcomes/Goals 1. PO intake to continue meeting at least 75% of all meals 2. Wt stability, skin to remain intact, labs to approach WNL Reviewed by Gloria Becker RD
--- NOTE | 2018-08-12 14:47 | General Progress Note ---
Subjective - Review of Systems Service Date: 08/12/18 Subjective: resting comfortably in bed no distress Objective - Results Result Diagrams: 07/27/18 18:40 07/27/18 18:40 Recent Labs: Laboratory Last Values WBC 5.7 Th/cmm (4.8-10.8) 07/27/18 18:40 RBC 4.44 Mil/cmm (3.80-5.80) 07/27/18 18:40 Hgb 12.9 gm/dL (12-16) 07/27/18 18:40 Hct 38.2 % (41.0-60) L 07/27/18 18:40 MCV 86.0 fl (80-99) 07/27/18 18:40 MCH 29.0 pg (27.0-31.0) 07/27/18 18:40 MCHC Differential 33.7 pg (28.0-36.0) 07/27/18 18:40 RDW 15.0 % (11.5-20.0) 07/27/18 18:40 Plt Count 244 Th/cmm (150-400) 07/27/18 18:40 MPV 8.2 fl 07/27/18 18:40 Neutrophils % 57.5 % (40.0-80.0) 07/27/18 18:40 Lymphocytes % 30.2 % (20.0-50.0) 07/27/18 18:40 Monocytes % 10.6 % (2.0-10.0) H 07/27/18 18:40 Eosinophils % 1.0 % (0.0-5.0) 07/27/18 18:40 Basophils % 0.7 % (0.0-2.0) 07/27/18 18:40 Sodium 135 mEq/L (136-145) L 07/27/18 18:40 Potassium 4.1 mEq/L (3.5-5.1) 07/27/18 18:40 Chloride 100 mEq/L (98-107) 07/27/18 18:40 Carbon Dioxide 26.3 mEq/L (21.0-31.0) 07/27/18 18:40 Anion Gap 12.8 (7.0-16.0) 07/27/18 18:40 BUN 17 mg/dL (7-25) 07/27/18 18:40 Creatinine 0.9 mg/dL (0.7-1.3) 07/27/18 18:40 Est GFR ( Amer) > 60.0 ml/min (>90) 07/27/18 18:40 Est GFR (Non-Af Amer) > 60.0 ml/min 07/27/18 18:40 BUN/Creatinine Ratio 18.9 07/27/18 18:40 Glucose 99 mg/dL (70-105) 07/27/18 18:40 Calcium 9.1 mg/dL (8.6-10.3) 07/27/18 18:40 Total Bilirubin 0.5 mg/dL (0.3-1.0) 07/27/18 18:40 AST 19 U/L (13-39) 07/27/18 18:40 ALT 11 U/L (7-52) 07/27/18 18:40 Alkaline Phosphatase 48 U/L (34-104) 07/27/18 18:40 Total Protein 6.8 gm/dL (6.0-8.3) 07/27/18 18:40 Albumin 4.2 gm/dL (4.2-5.5) 07/27/18 18:40 Globulin 2.6 gm/dL 07/27/18 18:40 Albumin/Globulin Ratio 1.6 (1.0-1.8) 07/27/18 18:40 Triglycerides 90 mg/dL (<150) 07/27/18 18:40 Cholesterol 226 mg/dL (<200) H 07/27/18 18:40 LDL Cholesterol Direct 138 mg/dL (75-193) 07/27/18 18:40 HDL Cholesterol 66 mg/dL (23-92) 07/27/18 18:40 TSH 2.17 uIU/ml (0.34-5.60) 07/27/18 18:40 Urine Source CLEAN C 07/27/18 18:30 Urine Color YELLOW 07/27/18 18:30 Urine Clarity CLEAR (CLEAR) 07/27/18 18:30 Urine pH 6.0 (4.6 - 8.0) 07/27/18 18:30 Ur Specific Crosby <= 1.005 (1.005-1.030) 07/27/18 18:30 Urine Protein NEGATIVE mg/dL (NEGATIVE) 07/27/18 18:30 Urine Glucose (UA) NEGATIVE mg/dL (NEGATIVE) 07/27/18 18:30 Urine Ketones NEGATIVE mg/dL (NEGATIVE) 07/27/18 18:30 Urine Blood NEGATIVE (NEGATIVE) 07/27/18 18:30 Urine Nitrate NEGATIVE (NEGATIVE) 07/27/18 18:30 Urine Bilirubin NEGATIVE (NEGATIVE) 07/27/18 18:30 Urine Urobilinogen 0.2 E.U./dL (0.2 - 1.0) 07/27/18 18:30 Ur Leukocyte Esterase NEGATIVE (NEGATIVE) 07/27/18 18:30 Urine RBC NONE SEEN /hpf (0-5) 07/27/18 18:30 Urine WBC 0-2 /hpf (0-5) 07/27/18 18:30 Ur Epithelial Cells NONE SEEN /lpf (FEW) 07/27/18 18:30 Urine Bacteria MODERATE /hpf (NONE SEEN) H 07/27/18 18:30 Valproic Acid 83.2 ug/mL (50.0-100.0) 08/01/18 12:45 RPR NONREACTIVE (NONREACTIVE) 07/27/18 18:40 - Physical Exam Vitals and I&O: Vital Signs Temp 97.3 F 08/12/18 06:31 Pulse 110 08/12/18 08:34 Resp 20 08/12/18 06:31 BP 143/75 08/12/18 08:34 Pulse Ox 99 08/12/18 06:31 Intake & Output 08/11/18 08/12/18 08/12/18 18:59 06:59 18:59 Intake Total 1100 Balance 1100 Intake: Oral 1100 Other: # Voids 4 # Bowel Movements 1 Active Medications: Current Medications Acetaminophen (Tylenol) 650 mg PO Q4HR PRN PRN Reason: Pain (Mild) Stop: 09/25/18 22:04 Docusate Sodium (Colace) 100 mg PO BID [facility] Stop: 09/26/18 08:59 Last Admin: 08/12/18 08:35 Dose: 100 mg Famotidine (Pepcid) 40 mg PO DAILY [facility] Stop: 09/26/18 08:59 Last Admin: 08/12/18 08:35 Dose: 40 mg Levetiracetam (Keppra) 500 mg PO BID [facility] Stop: 09/26/18 08:59 Last Admin: 08/12/18 08:35 Dose: 500 mg Lorazepam (Ativan) 0.5 mg PO Q4HR PRN; Protocol PRN Reason: Anxiety Stop: 08/26/18 21:50 Last Admin: 08/02/18 16:30 Dose: 0.5 mg Magnesium Hydroxide (Milk Of Magnesia) 30 ml PO HS PRN PRN Reason: constipation Stop: 09/29/18 22:11 Metoprolol Tartrate (Lopressor) 50 mg PO BID [facility] Stop: 09/26/18 08:59 Last Admin: 08/12/18 08:34 Dose: 50 mg Quetiapine Fumarate (Seroquel) 200 mg PO BID [facility] Stop: 10/07/18 16:59 Last Admin: 08/12/18 08:34 Dose: 200 mg Risperidone (Risperdal) 1 mg PO BID [facility]; Protocol Stop: 10/09/18 16:59 Last Admin: 08/12/18 08:34 Dose: 1 mg Valproate Sodium (Depakene) 500 mg PO BID [facility]; Protocol Stop: 09/27/18 16:59 Last Admin: 08/12/18 08:34 Dose: 500 mg Zolpidem Tartrate (Ambien) 5 mg PO HS PRN PRN Reason: Insomnia Stop: 09/25/18 21:50 Last Admin: 08/07/18 20:26 Dose: 5 mg General: No acute distress HEENT: Atraumatic, PERRLA Neck: Supple, JVD Cardiovascular: Regular rate, Normal S1, Normal S2 Lungs: Clear to auscultation, Normal air movement Abdomen: Bowel sounds, Soft - Procedures Procedures: Procedures Procedure Code Date GROUP PSYCHOTHERAPY 56858 07/16/15 GROUP PSYCHOTHERAPY GZHZZZZ 07/16/15 INDIVID PSYCHOTHERAP NEC 94.39 09/06/13 OTHER GROUP THERAPY 94.44 05/03/14 RECREATIONAL THERAPY 93.81 08/25/12 Assessment/Plan - Assessment Assessment: 1.HTN. 2.DM 3.SEIZURE DISORDERED. 4.DEMENTIA. - Plan Plan: continue current treatment Nutritional Asmnt/Malnutr-PDOC - Dietary Evaluation Malnutrition Findings (Please click <Entered> for more info): Nutritional Asmnt/Malnutrition Start: 07/31/18 13: 00 Text: Status: Complete Freq: Protocol: Document 07/31/18 13:00 DELISA (Rec: 07/31/18 13:08 DELISA [email or web address]) Nutritional Asmnt/Malnutrition Patient General Information Nutritional Screening Moderate Risk Diagnosis psychosis Pertinent Medical Hx/Surgical Hx HTN, DM, CHF, asthma/COPD, dyslipidemia, seizures, arthritis, s/p pneumonia, cardiac arrhythmia, chronic renal disease, scoliosis, dementia, major depression, paranoid schizophrenia, cerebrovascular disease Subjective Information Pt sitting in rec room at time of visit. Pt appeared anxious and walked away when approached. Nursing noted PO intake: 75-100%. Current Diet Order/ Nutrition Support [facility] soft ground, MAURA, CCHO, low fat Pertinent Medications seroquel, colace, pepcid, keppra, MOM Pertinent Labs 07/27: Na 135, Cholesterol 223 -226, glucose 99 Nutritional Hx/Data Height 1.57 m Height (Calculated Centimeters) 157.5 Current Weight (lbs) 58.967 kg Weight (Calculated Kilograms) 59.0 Weight (Calculated Grams) 66130.0 [place] Body Weight 118 lb Body Mass Index (BMI) 23.8 Weight Status Approriate GI Symptoms GI Symptoms None Last BM 07/30 Difficult in: None Food Allergies No Skin Integrity/Comment: rosa aldridge 19 Current %PO Good (75-100%) Estimated Nutritional Goals BEE in Kcals: Using Current wt Calories/Kcals/Kg 25-30 Kcals Calculated 9515-3558 Protein: Using Current wt Protein g/k.0 Protein Calculated 59 g Fluid: ml 9745-7754 (1 ml/kcal) Nutritional Problem No current Nutrition Prob Problem no nutrition dx at this time Malnutrition Alert Is there a minimum of two criteria No selected? Query Text:Check all the applicable criteria. A minimum of two criteria are recommended for diagnosis of either severe or non-severe malnutrition. Malnutrition Related to Morbid Obesity Malnutrition related to morbid obesity No Intervention/Recommendation Comments 1. Consider checking HgA1C to assess need for CCHO diet 2. Continue with [facility] soft ground, MAURA, low fat diet as ordered 3. Monitor PO intake, wt, labs and skin integrity 4. F/U as low risk in 7 days, 08/07 Expected Outcomes/Goals Expected Outcomes/Goals 1. PO intake to continue meeting at least 75% of all meals 2. Wt stability, skin to remain intact, labs to approach WNL Reviewed by Gloria Becker RD
--- NOTE | 2018-08-13 13:45 | Progress Notes ---
DATE: 08/12/[address] Peguero. IDENTIFYING DATA: The patient is a 68-year-old male brought in here by Board and Care for severe agitation and psychotic and aggressive behaviors. CURRENT MEDICATIONS: Include Keppra, lorazepam, metoprolol, Seroquel 200 mg p.o. b.i.d. with Risperdal 1 mg b.i.d., Depakote 500 p.o. b.i.d. Today on [id number] evaluation, the patient denies any side effects of the medications, but then he finds himself mostly just cannot focus and internally preoccupied and responding and then disengages in the interview. Examination continues to find himself disengaged, paranoid, and internally preoccupied. ASSESSMENT AND PLAN: The patient with a history of psychosis. We will continue with the current medication regimen and at this point, although he is on 2 different antipsychotics he is not experiencing any side effects of medications and ____ medication will be cross titrated to achieve monotherapy. [facility]# [id number]
--- NOTE | 2018-08-13 16:35 | General Progress Note ---
Subjective - Review of Systems Service Date: 08/13/18 Subjective: resting comfortably in bed no distress Objective - Results Result Diagrams: 07/27/18 18:40 07/27/18 18:40 Recent Labs: Laboratory Last Values WBC 5.7 Th/cmm (4.8-10.8) 07/27/18 18:40 RBC 4.44 Mil/cmm (3.80-5.80) 07/27/18 18:40 Hgb 12.9 gm/dL (12-16) 07/27/18 18:40 Hct 38.2 % (41.0-60) L 07/27/18 18:40 MCV 86.0 fl (80-99) 07/27/18 18:40 MCH 29.0 pg (27.0-31.0) 07/27/18 18:40 MCHC Differential 33.7 pg (28.0-36.0) 07/27/18 18:40 RDW 15.0 % (11.5-20.0) 07/27/18 18:40 Plt Count 244 Th/cmm (150-400) 07/27/18 18:40 MPV 8.2 fl 07/27/18 18:40 Neutrophils % 57.5 % (40.0-80.0) 07/27/18 18:40 Lymphocytes % 30.2 % (20.0-50.0) 07/27/18 18:40 Monocytes % 10.6 % (2.0-10.0) H 07/27/18 18:40 Eosinophils % 1.0 % (0.0-5.0) 07/27/18 18:40 Basophils % 0.7 % (0.0-2.0) 07/27/18 18:40 Sodium 135 mEq/L (136-145) L 07/27/18 18:40 Potassium 4.1 mEq/L (3.5-5.1) 07/27/18 18:40 Chloride 100 mEq/L (98-107) 07/27/18 18:40 Carbon Dioxide 26.3 mEq/L (21.0-31.0) 07/27/18 18:40 Anion Gap 12.8 (7.0-16.0) 07/27/18 18:40 BUN 17 mg/dL (7-25) 07/27/18 18:40 Creatinine 0.9 mg/dL (0.7-1.3) 07/27/18 18:40 Est GFR ( Amer) > 60.0 ml/min (>90) 07/27/18 18:40 Est GFR (Non-Af Amer) > 60.0 ml/min 07/27/18 18:40 BUN/Creatinine Ratio 18.9 07/27/18 18:40 Glucose 99 mg/dL (70-105) 07/27/18 18:40 Calcium 9.1 mg/dL (8.6-10.3) 07/27/18 18:40 Total Bilirubin 0.5 mg/dL (0.3-1.0) 07/27/18 18:40 AST 19 U/L (13-39) 07/27/18 18:40 ALT 11 U/L (7-52) 07/27/18 18:40 Alkaline Phosphatase 48 U/L (34-104) 07/27/18 18:40 Total Protein 6.8 gm/dL (6.0-8.3) 07/27/18 18:40 Albumin 4.2 gm/dL (4.2-5.5) 07/27/18 18:40 Globulin 2.6 gm/dL 07/27/18 18:40 Albumin/Globulin Ratio 1.6 (1.0-1.8) 07/27/18 18:40 Triglycerides 90 mg/dL (<150) 07/27/18 18:40 Cholesterol 226 mg/dL (<200) H 07/27/18 18:40 LDL Cholesterol Direct 138 mg/dL (75-193) 07/27/18 18:40 HDL Cholesterol 66 mg/dL (23-92) 07/27/18 18:40 TSH 2.17 uIU/ml (0.34-5.60) 07/27/18 18:40 Urine Source CLEAN C 07/27/18 18:30 Urine Color YELLOW 07/27/18 18:30 Urine Clarity CLEAR (CLEAR) 07/27/18 18:30 Urine pH 6.0 (4.6 - 8.0) 07/27/18 18:30 Ur Specific [place] <= 1.005 (1.005-1.030) 07/27/18 18:30 Urine Protein NEGATIVE mg/dL (NEGATIVE) 07/27/18 18:30 Urine Glucose (UA) NEGATIVE mg/dL (NEGATIVE) 07/27/18 18:30 Urine Ketones NEGATIVE mg/dL (NEGATIVE) 07/27/18 18:30 Urine Blood NEGATIVE (NEGATIVE) 07/27/18 18:30 Urine Nitrate NEGATIVE (NEGATIVE) 07/27/18 18:30 Urine Bilirubin NEGATIVE (NEGATIVE) 07/27/18 18:30 Urine Urobilinogen 0.2 E.U./dL (0.2 - 1.0) 07/27/18 18:30 Ur Leukocyte Esterase NEGATIVE (NEGATIVE) 07/27/18 18:30 Urine RBC NONE SEEN /hpf (0-5) 07/27/18 18:30 Urine WBC 0-2 /hpf (0-5) 07/27/18 18:30 Ur Epithelial Cells NONE SEEN /lpf (FEW) 07/27/18 18:30 Urine Bacteria MODERATE /hpf (NONE SEEN) H 07/27/18 18:30 Valproic Acid 83.2 ug/mL (50.0-100.0) 08/01/18 12:45 RPR NONREACTIVE (NONREACTIVE) 07/27/18 18:40 - Physical Exam Vitals and I&O: Vital Signs Temp 97.9 F 08/13/18 14:00 Pulse 93 08/13/18 14:00 Resp 20 08/13/18 14:00 BP 96/66 08/13/18 14:00 Pulse Ox 100 08/13/18 14:00 Intake & Output 08/12/18 08/13/18 08/13/18 18:59 06:59 18:59 Intake Total 240 Balance 240 Intake: Oral 240 Other: # Voids 1 Active Medications: Current Medications Acetaminophen (Tylenol) 650 mg PO Q4HR PRN PRN Reason: Pain (Mild) Stop: 09/25/18 22:04 Docusate Sodium (Colace) 100 mg PO BID [facility] Stop: 09/26/18 08:59 Last Admin: 08/13/18 08:38 Dose: 100 mg Famotidine (Pepcid) 40 mg PO DAILY [facility] Stop: 09/26/18 08:59 Last Admin: 08/13/18 08:38 Dose: 40 mg Levetiracetam (Keppra) 500 mg PO BID [facility] Stop: 09/26/18 08:59 Last Admin: 08/13/18 08:38 Dose: 500 mg Lorazepam (Ativan) 0.5 mg PO Q4HR PRN; Protocol PRN Reason: Anxiety Stop: 08/26/18 21:50 Last Admin: 08/02/18 16:30 Dose: 0.5 mg Magnesium Hydroxide (Milk Of Magnesia) 30 ml PO HS PRN PRN Reason: constipation Stop: 09/29/18 22:11 Metoprolol Tartrate (Lopressor) 50 mg PO BID [facility] Stop: 09/26/18 08:59 Last Admin: 08/13/18 08:38 Dose: 50 mg Quetiapine Fumarate (Seroquel) 200 mg PO BID [facility] Stop: 10/07/18 16:59 Last Admin: 08/13/18 08:38 Dose: 200 mg Risperidone (Risperdal) 1 mg PO BID [facility]; Protocol Stop: 10/09/18 16:59 Last Admin: 08/13/18 08:38 Dose: 1 mg Valproate Sodium (Depakene) 500 mg PO BID [facility]; Protocol Stop: 09/27/18 16:59 Last Admin: 08/13/18 08:38 Dose: 500 mg Zolpidem Tartrate (Ambien) 5 mg PO HS PRN PRN Reason: Insomnia Stop: 09/25/18 21:50 Last Admin: 08/07/18 20:26 Dose: 5 mg General: No acute distress HEENT: Atraumatic, PERRLA Neck: Supple, JVD Cardiovascular: Regular rate, Normal S1, Normal S2 Lungs: Clear to auscultation, Normal air movement Abdomen: Bowel sounds, Soft - Procedures Procedures: Procedures Procedure Code Date GROUP PSYCHOTHERAPY 51627 07/16/15 GROUP PSYCHOTHERAPY GZHZZZZ 07/16/15 INDIVID PSYCHOTHERAP NEC 94.39 09/06/13 OTHER GROUP THERAPY 94.44 05/03/14 RECREATIONAL THERAPY 93.81 08/25/12 Assessment/Plan - Assessment Assessment: 1.HTN. 2.DM 3.SEIZURE DISORDERED. 4.DEMENTIA. - Plan Plan: continue current treatment Nutritional Asmnt/Malnutr-PDOC - Dietary Evaluation Malnutrition Findings (Please click <Entered> for more info): Nutritional Asmnt/Malnutrition Start: 07/31/18 13: 00 Text: Status: Complete Freq: Protocol: Document 07/31/18 13:00 DYANG (Rec: 07/31/18 13:08 DELISA [email or web address]) Nutritional Asmnt/Malnutrition Patient General Information Nutritional Screening Moderate Risk Diagnosis psychosis Pertinent Medical Hx/Surgical Hx HTN, DM, CHF, asthma/COPD, dyslipidemia, seizures, arthritis, s/p pneumonia, cardiac arrhythmia, chronic renal disease, scoliosis, dementia, major depression, paranoid schizophrenia, cerebrovascular disease Subjective Information Pt sitting in rec room at time of visit. Pt appeared anxious and walked away when approached. Nursing noted PO intake: 75-100%. Current Diet Order/ Nutrition Support [facility] soft ground, MAURA, CCHO, low fat Pertinent Medications seroquel, colace, pepcid, keppra, MOM Pertinent Labs 07/27: Na 135, Cholesterol 223 -226, glucose 99 Nutritional Hx/Data Height 1.57 m Height (Calculated Centimeters) 157.5 Current Weight (lbs) 58.967 kg Weight (Calculated Kilograms) 59.0 Weight (Calculated Grams) 21765.0 [place] Body Weight 118 lb Body Mass Index (BMI) 23.8 Weight Status Approriate GI Symptoms GI Symptoms None Last BM 07/30 Difficult in: None Food Allergies No Skin Integrity/Comment: intact, rosa 19 Current %PO Good (75-100%) Estimated Nutritional Goals BEE in Kcals: Using Current wt Calories/Kcals/Kg 25-30 Kcals Calculated 3999-1136 Protein: Using Current wt Protein g/k.0 Protein Calculated 59 g Fluid: ml 3714-8809 (1 ml/kcal) Nutritional Problem No current Nutrition Prob Problem no nutrition dx at this time Malnutrition Alert Is there a minimum of two criteria No selected? Query Text:Check all the applicable criteria. A minimum of two criteria are recommended for diagnosis of either severe or non-severe malnutrition. Malnutrition Related to Morbid Obesity Malnutrition related to morbid obesity No Intervention/Recommendation Comments 1. Consider checking HgA1C to assess need for CCHO diet 2. Continue with [facility] soft ground, MAURA, low fat diet as ordered 3. Monitor PO intake, wt, labs and skin integrity 4. F/U as low risk in 7 days, 08/07 Expected Outcomes/Goals Expected Outcomes/Goals 1. PO intake to continue meeting at least 75% of all meals 2. Wt stability, skin to remain intact, labs to approach WNL Reviewed by Gloria Becker RD
--- NOTE | 2018-08-14 05:58 | Progress Notes ---
DATE: SUBJECTIVE: The patient was seen and evaluated. The patient's chart reviewed. Today on [id number] evaluation, nursing staff is reporting that the patient continues to present easily disorganized, isolating himself and talking to himself. Today on [id number] evaluation, he continues to be withdrawn, disengaged in the interview and minimally interactive and refusing. MENTAL STATUS EXAMINATION: Disorganized with thought blocking. ASSESSMENT AND PLAN: The patient continues to be disorganized, withdrawn with internal thought blocking, unable to formulate a safe plan outside of a structured environment. JOB# [id number]
--- NOTE | 2018-08-14 20:27 | Internal Medicine Prog Note ---
Internal Medicine Subjective - Subjective Service Date: 08/14/18 Patient seen and examined:: without staff Patient is:: awake, verbal, in bed, talking, confused Per staff patient has:: no adverse event Internal Medicine Objective - Results Result Diagrams: 07/27/18 18:40 07/27/18 18:40 Recent Labs: Laboratory Last Values WBC 5.7 Th/cmm (4.8-10.8) 07/27/18 18:40 RBC 4.44 Mil/cmm (3.80-5.80) 07/27/18 18:40 Hgb 12.9 gm/dL (12-16) 07/27/18 18:40 Hct 38.2 % (41.0-60) L 07/27/18 18:40 MCV 86.0 fl (80-99) 07/27/18 18:40 MCH 29.0 pg (27.0-31.0) 07/27/18 18:40 MCHC Differential 33.7 pg (28.0-36.0) 07/27/18 18:40 RDW 15.0 % (11.5-20.0) 07/27/18 18:40 Plt Count 244 Th/cmm (150-400) 07/27/18 18:40 MPV 8.2 fl 07/27/18 18:40 Neutrophils % 57.5 % (40.0-80.0) 07/27/18 18:40 Lymphocytes % 30.2 % (20.0-50.0) 07/27/18 18:40 Monocytes % 10.6 % (2.0-10.0) H 07/27/18 18:40 Eosinophils % 1.0 % (0.0-5.0) 07/27/18 18:40 Basophils % 0.7 % (0.0-2.0) 07/27/18 18:40 Sodium 135 mEq/L (136-145) L 07/27/18 18:40 Potassium 4.1 mEq/L (3.5-5.1) 07/27/18 18:40 Chloride 100 mEq/L (98-107) 07/27/18 18:40 Carbon Dioxide 26.3 mEq/L (21.0-31.0) 07/27/18 18:40 Anion Gap 12.8 (7.0-16.0) 07/27/18 18:40 BUN 17 mg/dL (7-25) 07/27/18 18:40 Creatinine 0.9 mg/dL (0.7-1.3) 07/27/18 18:40 Est GFR ( Amer) > 60.0 ml/min (>90) 07/27/18 18:40 Est GFR (Non-Af Amer) > 60.0 ml/min 07/27/18 18:40 BUN/Creatinine Ratio 18.9 07/27/18 18:40 Glucose 99 mg/dL (70-105) 07/27/18 18:40 Calcium 9.1 mg/dL (8.6-10.3) 07/27/18 18:40 Total Bilirubin 0.5 mg/dL (0.3-1.0) 07/27/18 18:40 AST 19 U/L (13-39) 07/27/18 18:40 ALT 11 U/L (7-52) 07/27/18 18:40 Alkaline Phosphatase 48 U/L (34-104) 07/27/18 18:40 Total Protein 6.8 gm/dL (6.0-8.3) 07/27/18 18:40 Albumin 4.2 gm/dL (4.2-5.5) 07/27/18 18:40 Globulin 2.6 gm/dL 07/27/18 18:40 Albumin/Globulin Ratio 1.6 (1.0-1.8) 07/27/18 18:40 Triglycerides 90 mg/dL (<150) 07/27/18 18:40 Cholesterol 226 mg/dL (<200) H 07/27/18 18:40 LDL Cholesterol Direct 138 mg/dL (75-193) 07/27/18 18:40 HDL Cholesterol 66 mg/dL (23-92) 07/27/18 18:40 TSH 2.17 uIU/ml (0.34-5.60) 07/27/18 18:40 Urine Source CLEAN C 07/27/18 18:30 Urine Color YELLOW 07/27/18 18:30 Urine Clarity CLEAR (CLEAR) 07/27/18 18:30 Urine pH 6.0 (4.6 - 8.0) 07/27/18 18:30 Ur Specific [place] <= 1.005 (1.005-1.030) 07/27/18 18:30 Urine Protein NEGATIVE mg/dL (NEGATIVE) 07/27/18 18:30 Urine Glucose (UA) NEGATIVE mg/dL (NEGATIVE) 07/27/18 18:30 Urine Ketones NEGATIVE mg/dL (NEGATIVE) 07/27/18 18:30 Urine Blood NEGATIVE (NEGATIVE) 07/27/18 18:30 Urine Nitrate NEGATIVE (NEGATIVE) 07/27/18 18:30 Urine Bilirubin NEGATIVE (NEGATIVE) 07/27/18 18:30 Urine Urobilinogen 0.2 E.U./dL (0.2 - 1.0) 07/27/18 18:30 Ur Leukocyte Esterase NEGATIVE (NEGATIVE) 07/27/18 18:30 Urine RBC NONE SEEN /hpf (0-5) 07/27/18 18:30 Urine WBC 0-2 /hpf (0-5) 07/27/18 18:30 Ur Epithelial Cells NONE SEEN /lpf (FEW) 07/27/18 18:30 Urine Bacteria MODERATE /hpf (NONE SEEN) H 07/27/18 18:30 Valproic Acid 83.2 ug/mL (50.0-100.0) 08/01/18 12:45 RPR NONREACTIVE (NONREACTIVE) 07/27/18 18:40 - Physical Exam Vitals and I&O: Vital Signs Temp 97.4 F 08/14/18 16:48 Pulse 89 08/14/18 16:48 Resp 18 08/14/18 16:48 BP 125/79 08/14/18 16:48 Pulse Ox 96 08/14/18 16:48 Intake & Output 08/14/18 08/14/18 08/15/18 06:59 18:59 06:59 Intake Total 240 Balance 240 Intake: Oral 240 Other: # Voids 3 # Bowel Movements 0 1 Active Medications: Current Medications Acetaminophen (Tylenol) 650 mg PO Q4HR PRN PRN Reason: Pain (Mild) Stop: 09/25/18 22:04 Docusate Sodium (Colace) 100 mg PO BID [facility] Stop: 09/26/18 08:59 Last Admin: 08/14/18 16:16 Dose: 100 mg Famotidine (Pepcid) 40 mg PO DAILY [facility] Stop: 09/26/18 08:59 Last Admin: 08/14/18 08:19 Dose: 40 mg Levetiracetam (Keppra) 500 mg PO BID [facility] Stop: 09/26/18 08:59 Last Admin: 08/14/18 16:16 Dose: 500 mg Lorazepam (Ativan) 0.5 mg PO Q4HR PRN; Protocol PRN Reason: Anxiety Stop: 08/26/18 21:50 Last Admin: 08/02/18 16:30 Dose: 0.5 mg Magnesium Hydroxide (Milk Of Magnesia) 30 ml PO HS PRN PRN Reason: constipation Stop: 09/29/18 22:11 Metoprolol Tartrate (Lopressor) 50 mg PO BID [facility] Stop: 09/26/18 08:59 Last Admin: 08/14/18 16:14 Dose: 50 mg Quetiapine Fumarate (Seroquel) 200 mg PO BID [facility] Stop: 10/07/18 16:59 Last Admin: 08/14/18 16:16 Dose: 200 mg Risperidone (Risperdal) 2 mg PO BID [facility]; Protocol Stop: 10/13/18 16:59 Last Admin: 08/14/18 16:14 Dose: 2 mg Valproate Sodium (Depakene) 500 mg PO BID [facility]; Protocol Stop: 09/27/18 16:59 Last Admin: 08/14/18 16:16 Dose: 500 mg Zolpidem Tartrate (Ambien) 5 mg PO HS PRN PRN Reason: Insomnia Stop: 09/25/18 21:50 Last Admin: 08/07/18 20:26 Dose: 5 mg General: demented HEENT: NC/AT, PERRLA, EOMI, anicteric sclerae, throat clear Neck: Supple, No JVD, No thyromegaly, +2 carotid pulse wo bruit, No LAD Lungs: CTAB Cardiovascular: RRR, Normal S1, Normal S2, without murmur Abdomen: soft, non-tender, non-distended Neurological: no change - Procedures Procedures: Procedures Procedure Code Date GROUP PSYCHOTHERAPY 55748 07/16/15 GROUP PSYCHOTHERAPY GZHZZZZ 07/16/15 INDIVID PSYCHOTHERAP NEC 94.39 09/06/13 OTHER GROUP THERAPY 94.44 05/03/14 RECREATIONAL THERAPY 93.81 08/25/12 Internal Medicine Assmt/Plan - Assessment Assessment: 1.HTN. 2.HYPERLIPIDEMIA. 3.SEIZURE DISORDERED. 4.DEMENTIA. - Plan Plan: CONTINUE ON CURRENT MEDICATION AND DIET. Nutritional Asmnt/Malnutr-PDOC - Dietary Evaluation Malnutrition Findings (Please click <Entered> for more info): Nutritional Asmnt/Malnutrition Start: 07/31/18 13: 00 Text: Status: Complete Freq: Protocol: Document 07/31/18 13:00 DELISA (Rec: 07/31/18 13:08 DELISA [email or web address]) Nutritional Asmnt/Malnutrition Patient General Information Nutritional Screening Moderate Risk Diagnosis psychosis Pertinent Medical Hx/Surgical Hx HTN, DM, CHF, asthma/COPD, dyslipidemia, seizures, arthritis, s/p pneumonia, cardiac arrhythmia, chronic renal disease, scoliosis, dementia, major depression, paranoid schizophrenia, cerebrovascular disease Subjective Information Pt sitting in rec room at time of visit. Pt appeared anxious and walked away when approached. Nursing noted PO intake: 75-100%. Current Diet Order/ Nutrition Support [facility] soft ground, MAURA, CCHO, low fat Pertinent Medications seroquel, colace, pepcid, keppra, MOM Pertinent Labs 07/27: Na 135, Cholesterol 223 -226, glucose 99 Nutritional Hx/Data Height 1.57 m Height (Calculated Centimeters) 157.5 Current Weight (lbs) 58.967 kg Weight (Calculated Kilograms) 59.0 Weight (Calculated Grams) 78139.0 [place] Body Weight 118 lb Body Mass Index (BMI) 23.8 Weight Status Approriate GI Symptoms GI Symptoms None Last BM 07/30 Difficult in: None Food Allergies No Skin Integrity/Comment: intact, rosa 19 Current %PO Good (75-100%) Estimated Nutritional Goals BEE in Kcals: Using Current wt Calories/Kcals/Kg 25-30 Kcals Calculated 1479-7475 Protein: Using Current wt Protein g/k.0 Protein Calculated 59 g Fluid: ml 3490-2447 (1 ml/kcal) Nutritional Problem No current Nutrition Prob Problem no nutrition dx at this time Malnutrition Alert Is there a minimum of two criteria No selected? Query Text:Check all the applicable criteria. A minimum of two criteria are recommended for diagnosis of either severe or non-severe malnutrition. Malnutrition Related to Morbid Obesity Malnutrition related to morbid obesity No Intervention/Recommendation Comments 1. Consider checking HgA1C to assess need for CCHO diet 2. Continue with [facility] soft ground, MAURA, low fat diet as ordered 3. Monitor PO intake, wt, labs and skin integrity 4. F/U as low risk in 7 days, 08/07 Expected Outcomes/Goals Expected Outcomes/Goals 1. PO intake to continue meeting at least 75% of all meals 2. Wt stability, skin to remain intact, labs to approach WNL Reviewed by Gloria Becker RD
--- NOTE | 2018-08-14 23:29 | Progress Notes ---
DATE: 08/14/2018 SUBJECTIVE: Case was discussed with staff of the patient, reviewed records. The patient continues to be psychotic. He continues to be internally preoccupied. He continues to be unpredictable and impulsive. He continues to have poor insight, paranoid, needing redirection. The staff reports he sleeps well, eats well. He still would not look me in the eye or talk to me when I approach him, he closed his eyes and started mumbling to himself, very psychotic, not ready to go to a lesser level of care. I will be increasing Risperdal to 2 mg twice a day. We will continue to work with the patient in group therapy, milieu therapy, and adjust the medication as needed. JOB# [id number]
--- NOTE | 2018-08-15 15:55 | Progress Notes ---
DATE: 08/15/2018 Case was discussed with staff of the patient, reviewed records. The patient continues to be psychotic and internally preoccupied, appears to be responding to internal stimuli, unable to make safe plan for self-care. I did increase Risperdal dose yesterday and ____ increasing his Seroquel dose more today, as he has a history of doing well on Seroquel. He has been compliant with the medication with no side effects, no sedation, no nausea, and no extrapyramidal symptoms. He is still not ready to go because of his psychosis and we will continue the patient in group therapy, milieu therapy, adjust medication as needed. JOB# [id number]
--- NOTE | 2018-08-15 20:17 | Internal Medicine Prog Note ---
Internal Medicine Subjective - Subjective Service Date: 08/15/18 Patient seen and examined:: without staff Patient is:: awake, verbal, in bed, talking, confused Per staff patient has:: no adverse event Internal Medicine Objective - Results Result Diagrams: 07/27/18 18:40 07/27/18 18:40 Recent Labs: Laboratory Last Values WBC 5.7 Th/cmm (4.8-10.8) 07/27/18 18:40 RBC 4.44 Mil/cmm (3.80-5.80) 07/27/18 18:40 Hgb 12.9 gm/dL (12-16) 07/27/18 18:40 Hct 38.2 % (41.0-60) L 07/27/18 18:40 MCV 86.0 fl (80-99) 07/27/18 18:40 MCH 29.0 pg (27.0-31.0) 07/27/18 18:40 MCHC Differential 33.7 pg (28.0-36.0) 07/27/18 18:40 RDW 15.0 % (11.5-20.0) 07/27/18 18:40 Plt Count 244 Th/cmm (150-400) 07/27/18 18:40 MPV 8.2 fl 07/27/18 18:40 Neutrophils % 57.5 % (40.0-80.0) 07/27/18 18:40 Lymphocytes % 30.2 % (20.0-50.0) 07/27/18 18:40 Monocytes % 10.6 % (2.0-10.0) H 07/27/18 18:40 Eosinophils % 1.0 % (0.0-5.0) 07/27/18 18:40 Basophils % 0.7 % (0.0-2.0) 07/27/18 18:40 Sodium 135 mEq/L (136-145) L 07/27/18 18:40 Potassium 4.1 mEq/L (3.5-5.1) 07/27/18 18:40 Chloride 100 mEq/L (98-107) 07/27/18 18:40 Carbon Dioxide 26.3 mEq/L (21.0-31.0) 07/27/18 18:40 Anion Gap 12.8 (7.0-16.0) 07/27/18 18:40 BUN 17 mg/dL (7-25) 07/27/18 18:40 Creatinine 0.9 mg/dL (0.7-1.3) 07/27/18 18:40 Est GFR ( Amer) > 60.0 ml/min (>90) 07/27/18 18:40 Est GFR (Non-Af Amer) > 60.0 ml/min 07/27/18 18:40 BUN/Creatinine Ratio 18.9 07/27/18 18:40 Glucose 99 mg/dL (70-105) 07/27/18 18:40 Calcium 9.1 mg/dL (8.6-10.3) 07/27/18 18:40 Total Bilirubin 0.5 mg/dL (0.3-1.0) 07/27/18 18:40 AST 19 U/L (13-39) 07/27/18 18:40 ALT 11 U/L (7-52) 07/27/18 18:40 Alkaline Phosphatase 48 U/L (34-104) 07/27/18 18:40 Total Protein 6.8 gm/dL (6.0-8.3) 07/27/18 18:40 Albumin 4.2 gm/dL (4.2-5.5) 07/27/18 18:40 Globulin 2.6 gm/dL 07/27/18 18:40 Albumin/Globulin Ratio 1.6 (1.0-1.8) 07/27/18 18:40 Triglycerides 90 mg/dL (<150) 07/27/18 18:40 Cholesterol 226 mg/dL (<200) H 07/27/18 18:40 LDL Cholesterol Direct 138 mg/dL (75-193) 07/27/18 18:40 HDL Cholesterol 66 mg/dL (23-92) 07/27/18 18:40 TSH 2.17 uIU/ml (0.34-5.60) 07/27/18 18:40 Urine Source CLEAN C 07/27/18 18:30 Urine Color YELLOW 07/27/18 18:30 Urine Clarity CLEAR (CLEAR) 07/27/18 18:30 Urine pH 6.0 (4.6 - 8.0) 07/27/18 18:30 Ur Specific [place] <= 1.005 (1.005-1.030) 07/27/18 18:30 Urine Protein NEGATIVE mg/dL (NEGATIVE) 07/27/18 18:30 Urine Glucose (UA) NEGATIVE mg/dL (NEGATIVE) 07/27/18 18:30 Urine Ketones NEGATIVE mg/dL (NEGATIVE) 07/27/18 18:30 Urine Blood NEGATIVE (NEGATIVE) 07/27/18 18:30 Urine Nitrate NEGATIVE (NEGATIVE) 07/27/18 18:30 Urine Bilirubin NEGATIVE (NEGATIVE) 07/27/18 18:30 Urine Urobilinogen 0.2 E.U./dL (0.2 - 1.0) 07/27/18 18:30 Ur Leukocyte Esterase NEGATIVE (NEGATIVE) 07/27/18 18:30 Urine RBC NONE SEEN /hpf (0-5) 07/27/18 18:30 Urine WBC 0-2 /hpf (0-5) 07/27/18 18:30 Ur Epithelial Cells NONE SEEN /lpf (FEW) 07/27/18 18:30 Urine Bacteria MODERATE /hpf (NONE SEEN) H 07/27/18 18:30 Valproic Acid 83.2 ug/mL (50.0-100.0) 08/01/18 12:45 RPR NONREACTIVE (NONREACTIVE) 07/27/18 18:40 - Physical Exam Vitals and I&O: Vital Signs Temp 97.6 F 08/15/18 15:10 Pulse 104 08/15/18 16:42 Resp 18 08/15/18 15:10 BP 105/76 08/15/18 16:42 Pulse Ox 90 08/15/18 15:10 Intake & Output 08/15/18 08/15/18 08/16/18 06:59 18:59 06:59 Intake Total 180 Balance 180 Intake: Oral 180 Other: # Voids 2 3 # Bowel Movements 0 0 Active Medications: Current Medications Acetaminophen (Tylenol) 650 mg PO Q4HR PRN PRN Reason: Pain (Mild) Stop: 09/25/18 22:04 Docusate Sodium (Colace) 100 mg PO BID [facility] Stop: 09/26/18 08:59 Last Admin: 08/15/18 16:41 Dose: 100 mg Famotidine (Pepcid) 40 mg PO DAILY JOEL Stop: 09/26/18 08:59 Last Admin: 08/15/18 09:26 Dose: 40 mg Levetiracetam (Keppra) 500 mg PO BID JOEL Stop: 09/26/18 08:59 Last Admin: 08/15/18 16:41 Dose: 500 mg Lorazepam (Ativan) 0.5 mg PO Q4HR PRN; Protocol PRN Reason: Anxiety Stop: 08/26/18 21:50 Last Admin: 08/02/18 16:30 Dose: 0.5 mg Magnesium Hydroxide (Milk Of Magnesia) 30 ml PO HS PRN PRN Reason: constipation Stop: 09/29/18 22:11 Metoprolol Tartrate (Lopressor) 50 mg PO BID JOEL Stop: 09/26/18 08:59 Last Admin: 08/15/18 16:42 Dose: 50 mg Quetiapine Fumarate 200 mg/ (Quetiapine Fumarate 25 mg) 225 mg PO BID JOEL Stop: 10/14/18 16:59 Last Admin: 08/15/18 16:41 Dose: 225 mg Risperidone (Risperdal) 2 mg PO BID [facility]; Protocol Stop: 10/13/18 16:59 Last Admin: 08/15/18 16:41 Dose: 2 mg Valproate Sodium (Depakene) 500 mg PO BID [facility]; Protocol Stop: 09/27/18 16:59 Last Admin: 08/15/18 16:42 Dose: 500 mg Zolpidem Tartrate (Ambien) 5 mg PO HS PRN PRN Reason: Insomnia Stop: 09/25/18 21:50 Last Admin: 08/07/18 20:26 Dose: 5 mg General: demented HEENT: NC/AT, PERRLA, EOMI, anicteric sclerae, throat clear Neck: Supple, No JVD, No thyromegaly, +2 carotid pulse wo bruit, No LAD Lungs: CTAB Cardiovascular: RRR, Normal S1, Normal S2, without murmur Abdomen: soft, non-tender, non-distended Neurological: no change - Procedures Procedures: Procedures Procedure Code Date GROUP PSYCHOTHERAPY 89216 07/16/15 GROUP PSYCHOTHERAPY GZHZZZZ 07/16/15 INDIVID PSYCHOTHERAP NEC 94.39 09/06/13 OTHER GROUP THERAPY 94.44 05/03/14 RECREATIONAL THERAPY 93.81 08/25/12 Internal Medicine Assmt/Plan - Assessment Assessment: 1.HTN. 2.HYPERLIPIDEMIA. 3.SEIZURE DISORDERED. 4.DEMENTIA. - Plan Plan: CONTINUE ON CURRENT MEDICATION AND DIET. Nutritional Asmnt/Malnutr-PDOC - Dietary Evaluation Malnutrition Findings (Please click <Entered> for more info): Nutritional Asmnt/Malnutrition Start: 07/31/18 13: 00 Text: Status: Complete Freq: Protocol: Document 07/31/18 13:00 DELISA (Rec: 07/31/18 13:08 DELISA [email or web address]) Nutritional Asmnt/Malnutrition Patient General Information Nutritional Screening Moderate Risk Diagnosis psychosis Pertinent Medical Hx/Surgical Hx HTN, DM, CHF, asthma/COPD, dyslipidemia, seizures, arthritis, s/p pneumonia, cardiac arrhythmia, chronic renal disease, scoliosis, dementia, major depression, paranoid schizophrenia, cerebrovascular disease Subjective Information Pt sitting in rec room at time of visit. Pt appeared anxious and walked away when approached. Nursing noted PO intake: 75-100%. Current Diet Order/ Nutrition Support [facility] soft ground, MAURA, CCHO, low fat Pertinent Medications seroquel, colace, pepcid, keppra, MOM Pertinent Labs 07/27: Na 135, Cholesterol 223 -226, glucose 99 Nutritional Hx/Data Height 1.57 m Height (Calculated Centimeters) 157.5 Current Weight (lbs) 58.967 kg Weight (Calculated Kilograms) 59.0 Weight (Calculated Grams) 37266.0 [place] Body Weight 118 lb Body Mass Index (BMI) 23.8 Weight Status Approriate GI Symptoms GI Symptoms None Last BM 07/30 Difficult in: None Food Allergies No Skin Integrity/Comment: intact, rosa 19 Current %PO Good (75-100%) Estimated Nutritional Goals BEE in Kcals: Using Current wt Calories/Kcals/Kg 25-30 Kcals Calculated 5142-9010 Protein: Using Current wt Protein g/k.0 Protein Calculated 59 g Fluid: ml 0863-2231 (1 ml/kcal) Nutritional Problem No current Nutrition Prob Problem no nutrition dx at this time Malnutrition Alert Is there a minimum of two criteria No selected? Query Text:Check all the applicable criteria. A minimum of two criteria are recommended for diagnosis of either severe or non-severe malnutrition. Malnutrition Related to Morbid Obesity Malnutrition related to morbid obesity No Intervention/Recommendation Comments 1. Consider checking HgA1C to assess need for CCHO diet 2. Continue with [facility] soft ground, MAURA, low fat diet as ordered 3. Monitor PO intake, wt, labs and skin integrity 4. F/U as low risk in 7 days, 08/07 Expected Outcomes/Goals Expected Outcomes/Goals 1. PO intake to continue meeting at least 75% of all meals 2. Wt stability, skin to remain intact, labs to approach WNL Reviewed by Gloria Becker RD
--- NOTE | 2018-08-16 15:06 | Progress Notes ---
DATE: 08/16/2018 SUBJECTIVE: Case was discussed with staff of the patient, reviewed records. The patient so far is compliant with the medication. The staff reports he eats, he sleeps, however, he has been staying to himself. He would answer my question. He squeezes eyes when I tried to talk to him, avoids me. I have been increasing his medication on a daily basis and he seems to be taking his medication as his Depakote level was within acceptable therapeutic range at 83.2, he is sleeping well. He is eating well, this is an unusual presentation for him because of seeing him for many years and he never presented that way, but he is not acting anyway dangerous. He is not trying to harm himself or anybody and I am not sure if maybe he continues to do the same I will be sending him back to [place], may be continued to monitor him there. We will continue to work with the patient in group therapy, milieu therapy and adjust the medications as needed. JOB# [id number]
--- NOTE | 2018-08-16 20:11 | Internal Medicine Prog Note ---
Internal Medicine Subjective - Subjective Service Date: 08/16/18 Patient seen and examined:: with staff Patient is:: awake, verbal, in bed, talking, confused Per staff patient has:: no adverse event Internal Medicine Objective - Results Result Diagrams: 07/27/18 18:40 07/27/18 18:40 Recent Labs: Laboratory Last Values WBC 5.7 Th/cmm (4.8-10.8) 07/27/18 18:40 RBC 4.44 Mil/cmm (3.80-5.80) 07/27/18 18:40 Hgb 12.9 gm/dL (12-16) 07/27/18 18:40 Hct 38.2 % (41.0-60) L 07/27/18 18:40 MCV 86.0 fl (80-99) 07/27/18 18:40 MCH 29.0 pg (27.0-31.0) 07/27/18 18:40 MCHC Differential 33.7 pg (28.0-36.0) 07/27/18 18:40 RDW 15.0 % (11.5-20.0) 07/27/18 18:40 Plt Count 244 Th/cmm (150-400) 07/27/18 18:40 MPV 8.2 fl 07/27/18 18:40 Neutrophils % 57.5 % (40.0-80.0) 07/27/18 18:40 Lymphocytes % 30.2 % (20.0-50.0) 07/27/18 18:40 Monocytes % 10.6 % (2.0-10.0) H 07/27/18 18:40 Eosinophils % 1.0 % (0.0-5.0) 07/27/18 18:40 Basophils % 0.7 % (0.0-2.0) 07/27/18 18:40 Sodium 135 mEq/L (136-145) L 07/27/18 18:40 Potassium 4.1 mEq/L (3.5-5.1) 07/27/18 18:40 Chloride 100 mEq/L (98-107) 07/27/18 18:40 Carbon Dioxide 26.3 mEq/L (21.0-31.0) 07/27/18 18:40 Anion Gap 12.8 (7.0-16.0) 07/27/18 18:40 BUN 17 mg/dL (7-25) 07/27/18 18:40 Creatinine 0.9 mg/dL (0.7-1.3) 07/27/18 18:40 Est GFR ( Amer) > 60.0 ml/min (>90) 07/27/18 18:40 Est GFR (Non-Af Amer) > 60.0 ml/min 07/27/18 18:40 BUN/Creatinine Ratio 18.9 07/27/18 18:40 Glucose 99 mg/dL (70-105) 07/27/18 18:40 Calcium 9.1 mg/dL (8.6-10.3) 07/27/18 18:40 Total Bilirubin 0.5 mg/dL (0.3-1.0) 07/27/18 18:40 AST 19 U/L (13-39) 07/27/18 18:40 ALT 11 U/L (7-52) 07/27/18 18:40 Alkaline Phosphatase 48 U/L (34-104) 07/27/18 18:40 Total Protein 6.8 gm/dL (6.0-8.3) 07/27/18 18:40 Albumin 4.2 gm/dL (4.2-5.5) 07/27/18 18:40 Globulin 2.6 gm/dL 07/27/18 18:40 Albumin/Globulin Ratio 1.6 (1.0-1.8) 07/27/18 18:40 Triglycerides 90 mg/dL (<150) 07/27/18 18:40 Cholesterol 226 mg/dL (<200) H 07/27/18 18:40 LDL Cholesterol Direct 138 mg/dL (75-193) 07/27/18 18:40 HDL Cholesterol 66 mg/dL (23-92) 07/27/18 18:40 TSH 2.17 uIU/ml (0.34-5.60) 07/27/18 18:40 Urine Source CLEAN C 07/27/18 18:30 Urine Color YELLOW 07/27/18 18:30 Urine Clarity CLEAR (CLEAR) 07/27/18 18:30 Urine pH 6.0 (4.6 - 8.0) 07/27/18 18:30 Ur Specific [place] <= 1.005 (1.005-1.030) 07/27/18 18:30 Urine Protein NEGATIVE mg/dL (NEGATIVE) 07/27/18 18:30 Urine Glucose (UA) NEGATIVE mg/dL (NEGATIVE) 07/27/18 18:30 Urine Ketones NEGATIVE mg/dL (NEGATIVE) 07/27/18 18:30 Urine Blood NEGATIVE (NEGATIVE) 07/27/18 18:30 Urine Nitrate NEGATIVE (NEGATIVE) 07/27/18 18:30 Urine Bilirubin NEGATIVE (NEGATIVE) 07/27/18 18:30 Urine Urobilinogen 0.2 E.U./dL (0.2 - 1.0) 07/27/18 18:30 Ur Leukocyte Esterase NEGATIVE (NEGATIVE) 07/27/18 18:30 Urine RBC NONE SEEN /hpf (0-5) 07/27/18 18:30 Urine WBC 0-2 /hpf (0-5) 07/27/18 18:30 Ur Epithelial Cells NONE SEEN /lpf (FEW) 07/27/18 18:30 Urine Bacteria MODERATE /hpf (NONE SEEN) H 07/27/18 18:30 Valproic Acid 83.2 ug/mL (50.0-100.0) 08/01/18 12:45 RPR NONREACTIVE (NONREACTIVE) 07/27/18 18:40 - Physical Exam Vitals and I&O: Vital Signs Temp 97.2 F 08/16/18 20:00 Pulse 101 08/16/18 20:00 Resp 20 08/16/18 20:00 BP 113/65 08/16/18 20:00 Pulse Ox 98 08/16/18 20:00 Intake & Output 08/16/18 08/16/18 08/17/18 06:59 18:59 06:59 Intake Total 480 1200 Balance 480 1200 Intake: Oral 480 1200 Other: # Voids 2 # Bowel Movements 1 Active Medications: Current Medications Acetaminophen (Tylenol) 650 mg PO Q4HR PRN PRN Reason: Pain (Mild) Stop: 09/25/18 22:04 Docusate Sodium (Colace) 100 mg PO BID [facility] Stop: 09/26/18 08:59 Last Admin: 08/16/18 17:03 Dose: 100 mg Famotidine (Pepcid) 40 mg PO DAILY JOEL Stop: 09/26/18 08:59 Last Admin: 08/16/18 09:02 Dose: 40 mg Levetiracetam (Keppra) 500 mg PO BID [facility]EL Stop: 09/26/18 08:59 Last Admin: 08/16/18 17:03 Dose: 500 mg Lorazepam (Ativan) 0.5 mg PO Q4HR PRN; Protocol PRN Reason: Anxiety Stop: 08/26/18 21:50 Last Admin: 08/02/18 16:30 Dose: 0.5 mg Magnesium Hydroxide (Milk Of Magnesia) 30 ml PO HS PRN PRN Reason: constipation Stop: 09/29/18 22:11 Metoprolol Tartrate (Lopressor) 50 mg PO BID JOEL Stop: 09/26/18 08:59 Last Admin: 08/16/18 17:03 Dose: 50 mg Quetiapine Fumarate 200 mg/ (Quetiapine Fumarate 25 mg) 225 mg PO BID JOEL Stop: 10/14/18 16:59 Last Admin: 08/16/18 17:01 Dose: 225 mg Risperidone (Risperdal) 2 mg PO BID [facility]; Protocol Stop: 10/13/18 16:59 Last Admin: 08/16/18 17:00 Dose: 2 mg Valproate Sodium (Depakene) 500 mg PO BID [facility]; Protocol Stop: 09/27/18 16:59 Last Admin: 08/16/18 17:04 Dose: 500 mg Zolpidem Tartrate (Ambien) 5 mg PO HS PRN PRN Reason: Insomnia Stop: 09/25/18 21:50 Last Admin: 08/07/18 20:26 Dose: 5 mg General: demented HEENT: NC/AT, PERRLA, EOMI, anicteric sclerae, throat clear Neck: Supple, No JVD, No thyromegaly, +2 carotid pulse wo bruit, No LAD Lungs: CTAB Cardiovascular: RRR, Normal S1, Normal S2, without murmur Abdomen: soft, non-tender, non-distended Neurological: no change - Procedures Procedures: Procedures Procedure Code Date GROUP PSYCHOTHERAPY 53527 07/16/15 GROUP PSYCHOTHERAPY GZHZZZZ 07/16/15 INDIVID PSYCHOTHERAP NEC 94.39 09/06/13 OTHER GROUP THERAPY 94.44 05/03/14 RECREATIONAL THERAPY 93.81 08/25/12 Internal Medicine Assmt/Plan - Assessment Assessment: 1.HTN. 2.HYPERLIPIDEMIA. 3.SEIZURE DISORDERED. 4.DEMENTIA. - Plan Plan: CONTINUE ON CURRENT MEDICATION AND DIET. Nutritional Asmnt/Malnutr-PDOC - Dietary Evaluation Malnutrition Findings (Please click <Entered> for more info): Nutritional Asmnt/Malnutrition Start: 07/31/18 13: 00 Text: Status: Complete Freq: Protocol: Document 07/31/18 13:00 DELISA (Rec: 07/31/18 13:08 DELISA [email or web address]) Nutritional Asmnt/Malnutrition Patient General Information Nutritional Screening Moderate Risk Diagnosis psychosis Pertinent Medical Hx/Surgical Hx HTN, DM, CHF, asthma/COPD, dyslipidemia, seizures, arthritis, s/p pneumonia, cardiac arrhythmia, chronic renal disease, scoliosis, dementia, major depression, paranoid schizophrenia, cerebrovascular disease Subjective Information Pt sitting in rec room at time of visit. Pt appeared anxious and walked away when approached. Nursing noted PO intake: 75-100%. Current Diet Order/ Nutrition Support [facility] soft ground, MAURA, CCHO, low fat Pertinent Medications seroquel, colace, pepcid, keppra, MOM Pertinent Labs 07/27: Na 135, Cholesterol 223 -226, glucose 99 Nutritional Hx/Data Height 1.57 m Height (Calculated Centimeters) 157.5 Current Weight (lbs) 58.967 kg Weight (Calculated Kilograms) 59.0 Weight (Calculated Grams) 88881.0 [place] Body Weight 118 lb Body Mass Index (BMI) 23.8 Weight Status Approriate GI Symptoms GI Symptoms None Last BM 07/30 Difficult in: None Food Allergies No Skin Integrity/Comment: intact, rosa 19 Current %PO Good (75-100%) Estimated Nutritional Goals BEE in Kcals: Using Current wt Calories/Kcals/Kg 25-30 Kcals Calculated 6069-4478 Protein: Using Current wt Protein g/k.0 Protein Calculated 59 g Fluid: ml 4034-1591 (1 ml/kcal) Nutritional Problem No current Nutrition Prob Problem no nutrition dx at this time Malnutrition Alert Is there a minimum of two criteria No selected? Query Text:Check all the applicable criteria. A minimum of two criteria are recommended for diagnosis of either severe or non-severe malnutrition. Malnutrition Related to Morbid Obesity Malnutrition related to morbid obesity No Intervention/Recommendation Comments 1. Consider checking HgA1C to assess need for CCHO diet 2. Continue with [facility] soft ground, MAURA, low fat diet as ordered 3. Monitor PO intake, wt, labs and skin integrity 4. F/U as low risk in 7 days, 08/07 Expected Outcomes/Goals Expected Outcomes/Goals 1. PO intake to continue meeting at least 75% of all meals 2. Wt stability, skin to remain intact, labs to approach WNL Reviewed by Gloria Becker RD
--- NOTE | 2018-08-17 16:13 | Discharge Summary ---
DATE OF DISCHARGE: 08/17/2018 IDENTIFYING INFORMATION: The patient is a 68-year-old male. CHIEF COMPLAINT: No answer. HISTORY OF PRESENT ILLNESS: The patient referred for a board and care where he was living because of agitation and psychosis, aggressive behavior. He believe demons were after him. The patient is a known case have not been seeing him for the past 2 years; however, recently went to a board and care so, I have seen him lately. The patient was a poor historian, was unwilling to participate in meaningful conversation. DIAGNOSES: Chronic paranoid schizophrenia, acute exacerbation. COURSE IN THE HOSPITAL: The patient was started on Seroquel as it helped him before the dose was increased over the course today to 225 mg twice a day. Also, because of poor response added Risperdal increased to 2 mg twice a day and Depakote 500 mg twice a day. He was also elevated because of seizure disorder. He was on Depakote and Pepcid. The patient has per metoprolol for his high blood pressure, depression progressively got better. He was sleeping well, eating well. He was no longer acting in anyway dangerous. He has been acting anyway dangerous since he was here. He, however, continued to be somewhat religiously preoccupied, but we felt since he will be going to a nursing facility with that his medication, which could ____. FINAL DIAGNOSIS: Chronic paranoid schizophrenia with acute exacerbation. MEDICAL DIAGNOSES: Hypertension, seizure disorder. The patient will be going to [place], will follow up with the psychiatrist and primary care physician. EXPECTED OUTCOME: Stable if the patient complies. [facility]# [id number]
--- NOTE | 2018-08-17 21:03 | Internal Medicine Prog Note ---
Internal Medicine Subjective - Subjective Patient seen and examined:: without staff Patient is:: awake, verbal, in bed, talking, confused Per staff patient has:: no adverse event Internal Medicine Objective - Results Result Diagrams: 07/27/18 18:40 07/27/18 18:40 Recent Labs: Laboratory Last Values WBC 5.7 Th/cmm (4.8-10.8) 07/27/18 18:40 RBC 4.44 Mil/cmm (3.80-5.80) 07/27/18 18:40 Hgb 12.9 gm/dL (12-16) 07/27/18 18:40 Hct 38.2 % (41.0-60) L 07/27/18 18:40 MCV 86.0 fl (80-99) 07/27/18 18:40 MCH 29.0 pg (27.0-31.0) 07/27/18 18:40 MCHC Differential 33.7 pg (28.0-36.0) 07/27/18 18:40 RDW 15.0 % (11.5-20.0) 07/27/18 18:40 Plt Count 244 Th/cmm (150-400) 07/27/18 18:40 MPV 8.2 fl 07/27/18 18:40 Neutrophils % 57.5 % (40.0-80.0) 07/27/18 18:40 Lymphocytes % 30.2 % (20.0-50.0) 07/27/18 18:40 Monocytes % 10.6 % (2.0-10.0) H 07/27/18 18:40 Eosinophils % 1.0 % (0.0-5.0) 07/27/18 18:40 Basophils % 0.7 % (0.0-2.0) 07/27/18 18:40 Sodium 135 mEq/L (136-145) L 07/27/18 18:40 Potassium 4.1 mEq/L (3.5-5.1) 07/27/18 18:40 Chloride 100 mEq/L (98-107) 07/27/18 18:40 Carbon Dioxide 26.3 mEq/L (21.0-31.0) 07/27/18 18:40 Anion Gap 12.8 (7.0-16.0) 07/27/18 18:40 BUN 17 mg/dL (7-25) 07/27/18 18:40 Creatinine 0.9 mg/dL (0.7-1.3) 07/27/18 18:40 Est GFR ( Amer) > 60.0 ml/min (>90) 07/27/18 18:40 Est GFR (Non-Af Amer) > 60.0 ml/min 07/27/18 18:40 BUN/Creatinine Ratio 18.9 07/27/18 18:40 Glucose 99 mg/dL (70-105) 07/27/18 18:40 Calcium 9.1 mg/dL (8.6-10.3) 07/27/18 18:40 Total Bilirubin 0.5 mg/dL (0.3-1.0) 07/27/18 18:40 AST 19 U/L (13-39) 07/27/18 18:40 ALT 11 U/L (7-52) 07/27/18 18:40 Alkaline Phosphatase 48 U/L (34-104) 07/27/18 18:40 Total Protein 6.8 gm/dL (6.0-8.3) 07/27/18 18:40 Albumin 4.2 gm/dL (4.2-5.5) 07/27/18 18:40 Globulin 2.6 gm/dL 07/27/18 18:40 Albumin/Globulin Ratio 1.6 (1.0-1.8) 07/27/18 18:40 Triglycerides 90 mg/dL (<150) 07/27/18 18:40 Cholesterol 226 mg/dL (<200) H 07/27/18 18:40 LDL Cholesterol Direct 138 mg/dL (75-193) 07/27/18 18:40 HDL Cholesterol 66 mg/dL (23-92) 07/27/18 18:40 TSH 2.17 uIU/ml (0.34-5.60) 07/27/18 18:40 Urine Source CLEAN C 07/27/18 18:30 Urine Color YELLOW 07/27/18 18:30 Urine Clarity CLEAR (CLEAR) 07/27/18 18:30 Urine pH 6.0 (4.6 - 8.0) 07/27/18 18:30 Ur Specific [place] <= 1.005 (1.005-1.030) 07/27/18 18:30 Urine Protein NEGATIVE mg/dL (NEGATIVE) 07/27/18 18:30 Urine Glucose (UA) NEGATIVE mg/dL (NEGATIVE) 07/27/18 18:30 Urine Ketones NEGATIVE mg/dL (NEGATIVE) 07/27/18 18:30 Urine Blood NEGATIVE (NEGATIVE) 07/27/18 18:30 Urine Nitrate NEGATIVE (NEGATIVE) 07/27/18 18:30 Urine Bilirubin NEGATIVE (NEGATIVE) 07/27/18 18:30 Urine Urobilinogen 0.2 E.U./dL (0.2 - 1.0) 07/27/18 18:30 Ur Leukocyte Esterase NEGATIVE (NEGATIVE) 07/27/18 18:30 Urine RBC NONE SEEN /hpf (0-5) 07/27/18 18:30 Urine WBC 0-2 /hpf (0-5) 07/27/18 18:30 Ur Epithelial Cells NONE SEEN /lpf (FEW) 07/27/18 18:30 Urine Bacteria MODERATE /hpf (NONE SEEN) H 07/27/18 18:30 Valproic Acid 83.2 ug/mL (50.0-100.0) 08/01/18 12:45 RPR NONREACTIVE (NONREACTIVE) 07/27/18 18:40 - Physical Exam Vitals and I&O: Vital Signs Temp 97.3 F 08/17/18 19:51 Pulse 89 08/17/18 19:51 Resp 20 08/17/18 19:51 BP 141/67 08/17/18 19:51 Pulse Ox 99 08/17/18 19:51 Intake & Output 08/17/18 08/17/18 08/18/18 06:59 18:59 06:59 Intake Total 120 1200 240 Balance 120 1200 240 Intake: Oral 120 1200 240 Other: # Voids 2 2 # Bowel Movements 1 Active Medications: Current Medications Acetaminophen (Tylenol) 650 mg PO Q4HR PRN PRN Reason: Pain (Mild) Stop: 09/25/18 22:04 Docusate Sodium (Colace) 100 mg PO BID [facility] Stop: 09/26/18 08:59 Last Admin: 08/17/18 16:11 Dose: 100 mg Famotidine (Pepcid) 40 mg PO DAILY [facility]EL Stop: 09/26/18 08:59 Last Admin: 08/17/18 08:18 Dose: 40 mg Levetiracetam (Keppra) 500 mg PO BID [facility] Stop: 09/26/18 08:59 Last Admin: 08/17/18 16:12 Dose: 500 mg Lorazepam (Ativan) 0.5 mg PO Q4HR PRN; Protocol PRN Reason: Anxiety Stop: 08/26/18 21:50 Last Admin: 08/02/18 16:30 Dose: 0.5 mg Magnesium Hydroxide (Milk Of Magnesia) 30 ml PO HS PRN PRN Reason: constipation Stop: 09/29/18 22:11 Metoprolol Tartrate (Lopressor) 50 mg PO BID [facility] Stop: 09/26/18 08:59 Last Admin: 08/17/18 16:12 Dose: 50 mg Quetiapine Fumarate 200 mg/ (Quetiapine Fumarate 25 mg) 225 mg PO BID [facility] Stop: 10/14/18 16:59 Last Admin: 08/17/18 16:11 Dose: 225 mg Risperidone (Risperdal) 2 mg PO BID [facility]; Protocol Stop: 10/13/18 16:59 Last Admin: 08/17/18 16:11 Dose: 2 mg Valproate Sodium (Depakene) 500 mg PO BID [facility]; Protocol Stop: 09/27/18 16:59 Last Admin: 08/17/18 16:11 Dose: 500 mg Zolpidem Tartrate (Ambien) 5 mg PO HS PRN PRN Reason: Insomnia Stop: 09/25/18 21:50 Last Admin: 08/07/18 20:26 Dose: 5 mg General: demented HEENT: NC/AT, PERRLA, EOMI, anicteric sclerae, throat clear Neck: Supple, No JVD, No thyromegaly, +2 carotid pulse wo bruit, No LAD Lungs: CTAB Cardiovascular: RRR, Normal S1, Normal S2, without murmur Abdomen: soft, non-tender, non-distended Neurological: no change - Procedures Procedures: Procedures Procedure Code Date GROUP PSYCHOTHERAPY 51093 07/16/15 GROUP PSYCHOTHERAPY GZHZZZZ 07/16/15 INDIVID PSYCHOTHERAP NEC 94.39 09/06/13 OTHER GROUP THERAPY 94.44 05/03/14 RECREATIONAL THERAPY 93.81 08/25/12 Internal Medicine Assmt/Plan - Assessment Assessment: 1.HTN. 2.HYPERLIPIDEMIA. 3.SEIZURE DISORDERED. 4.DEMENTIA. - Plan Plan: CONTINUE ON CURRENT MEDICATION AND DIET. Nutritional Asmnt/Malnutr-PDOC - Dietary Evaluation Malnutrition Findings (Please click <Entered> for more info): Nutritional Asmnt/Malnutrition Start: 07/31/18 13: 00 Text: Status: Complete Freq: Protocol: Document 07/31/18 13:00 DELISA (Rec: 07/31/18 13:08 DELISA [email or web address]) Nutritional Asmnt/Malnutrition Patient General Information Nutritional Screening Moderate Risk Diagnosis psychosis Pertinent Medical Hx/Surgical Hx HTN, DM, CHF, asthma/COPD, dyslipidemia, seizures, arthritis, s/p pneumonia, cardiac arrhythmia, chronic renal disease, scoliosis, dementia, major depression, paranoid schizophrenia, cerebrovascular disease Subjective Information Pt sitting in rec room at time of visit. Pt appeared anxious and walked away when approached. Nursing noted PO intake: 75-100%. Current Diet Order/ Nutrition Support [facility] soft ground, MAURA, CCHO, low fat Pertinent Medications seroquel, colace, pepcid, keppra, MOM Pertinent Labs 07/27: Na 135, Cholesterol 223 -226, glucose 99 Nutritional Hx/Data Height 1.57 m Height (Calculated Centimeters) 157.5 Current Weight (lbs) 58.967 kg Weight (Calculated Kilograms) 59.0 Weight (Calculated Grams) 52704.0 [place] Body Weight 118 lb Body Mass Index (BMI) 23.8 Weight Status Approriate GI Symptoms GI Symptoms None Last BM 07/30 Difficult in: None Food Allergies No Skin Integrity/Comment: intact, rosa 19 Current %PO Good (75-100%) Estimated Nutritional Goals BEE in Kcals: Using Current wt Calories/Kcals/Kg 25-30 Kcals Calculated 6172-4360 Protein: Using Current wt Protein g/k.0 Protein Calculated 59 g Fluid: ml 3346-7736 (1 ml/kcal) Nutritional Problem No current Nutrition Prob Problem no nutrition dx at this time Malnutrition Alert Is there a minimum of two criteria No selected? Query Text:Check all the applicable criteria. A minimum of two criteria are recommended for diagnosis of either severe or non-severe malnutrition. Malnutrition Related to Morbid Obesity Malnutrition related to morbid obesity No Intervention/Recommendation Comments 1. Consider checking HgA1C to assess need for CCHO diet 2. Continue with [facility] soft ground, MAURA, low fat diet as ordered 3. Monitor PO intake, wt, labs and skin integrity 4. F/U as low risk in 7 days, 08/07 Expected Outcomes/Goals Expected Outcomes/Goals 1. PO intake to continue meeting at least 75% of all meals 2. Wt stability, skin to remain intact, labs to approach WNL Reviewed by Gloria Becker RD
--- NOTE | 2018-08-18 15:42 | Internal Medicine Prog Note ---
Internal Medicine Subjective - Subjective Service Date: 08/18/18 Patient seen and examined:: without staff Patient is:: awake, verbal, in bed, talking, confused Per staff patient has:: no adverse event Internal Medicine Objective - Results Result Diagrams: 07/27/18 18:40 07/27/18 18:40 Recent Labs: Laboratory Last Values WBC 5.7 Th/cmm (4.8-10.8) 07/27/18 18:40 RBC 4.44 Mil/cmm (3.80-5.80) 07/27/18 18:40 Hgb 12.9 gm/dL (12-16) 07/27/18 18:40 Hct 38.2 % (41.0-60) L 07/27/18 18:40 MCV 86.0 fl (80-99) 07/27/18 18:40 MCH 29.0 pg (27.0-31.0) 07/27/18 18:40 MCHC Differential 33.7 pg (28.0-36.0) 07/27/18 18:40 RDW 15.0 % (11.5-20.0) 07/27/18 18:40 Plt Count 244 Th/cmm (150-400) 07/27/18 18:40 MPV 8.2 fl 07/27/18 18:40 Neutrophils % 57.5 % (40.0-80.0) 07/27/18 18:40 Lymphocytes % 30.2 % (20.0-50.0) 07/27/18 18:40 Monocytes % 10.6 % (2.0-10.0) H 07/27/18 18:40 Eosinophils % 1.0 % (0.0-5.0) 07/27/18 18:40 Basophils % 0.7 % (0.0-2.0) 07/27/18 18:40 Sodium 135 mEq/L (136-145) L 07/27/18 18:40 Potassium 4.1 mEq/L (3.5-5.1) 07/27/18 18:40 Chloride 100 mEq/L (98-107) 07/27/18 18:40 Carbon Dioxide 26.3 mEq/L (21.0-31.0) 07/27/18 18:40 Anion Gap 12.8 (7.0-16.0) 07/27/18 18:40 BUN 17 mg/dL (7-25) 07/27/18 18:40 Creatinine 0.9 mg/dL (0.7-1.3) 07/27/18 18:40 Est GFR ( Amer) > 60.0 ml/min (>90) 07/27/18 18:40 Est GFR (Non-Af Amer) > 60.0 ml/min 07/27/18 18:40 BUN/Creatinine Ratio 18.9 07/27/18 18:40 Glucose 99 mg/dL (70-105) 07/27/18 18:40 Calcium 9.1 mg/dL (8.6-10.3) 07/27/18 18:40 Total Bilirubin 0.5 mg/dL (0.3-1.0) 07/27/18 18:40 AST 19 U/L (13-39) 07/27/18 18:40 ALT 11 U/L (7-52) 07/27/18 18:40 Alkaline Phosphatase 48 U/L (34-104) 07/27/18 18:40 Total Protein 6.8 gm/dL (6.0-8.3) 07/27/18 18:40 Albumin 4.2 gm/dL (4.2-5.5) 07/27/18 18:40 Globulin 2.6 gm/dL 07/27/18 18:40 Albumin/Globulin Ratio 1.6 (1.0-1.8) 07/27/18 18:40 Triglycerides 90 mg/dL (<150) 07/27/18 18:40 Cholesterol 226 mg/dL (<200) H 07/27/18 18:40 LDL Cholesterol Direct 138 mg/dL (75-193) 07/27/18 18:40 HDL Cholesterol 66 mg/dL (23-92) 07/27/18 18:40 TSH 2.17 uIU/ml (0.34-5.60) 07/27/18 18:40 Urine Source CLEAN C 07/27/18 18:30 Urine Color YELLOW 07/27/18 18:30 Urine Clarity CLEAR (CLEAR) 07/27/18 18:30 Urine pH 6.0 (4.6 - 8.0) 07/27/18 18:30 Ur Specific [place] <= 1.005 (1.005-1.030) 07/27/18 18:30 Urine Protein NEGATIVE mg/dL (NEGATIVE) 07/27/18 18:30 Urine Glucose (UA) NEGATIVE mg/dL (NEGATIVE) 07/27/18 18:30 Urine Ketones NEGATIVE mg/dL (NEGATIVE) 07/27/18 18:30 Urine Blood NEGATIVE (NEGATIVE) 07/27/18 18:30 Urine Nitrate NEGATIVE (NEGATIVE) 07/27/18 18:30 Urine Bilirubin NEGATIVE (NEGATIVE) 07/27/18 18:30 Urine Urobilinogen 0.2 E.U./dL (0.2 - 1.0) 07/27/18 18:30 Ur Leukocyte Esterase NEGATIVE (NEGATIVE) 07/27/18 18:30 Urine RBC NONE SEEN /hpf (0-5) 07/27/18 18:30 Urine WBC 0-2 /hpf (0-5) 07/27/18 18:30 Ur Epithelial Cells NONE SEEN /lpf (FEW) 07/27/18 18:30 Urine Bacteria MODERATE /hpf (NONE SEEN) H 07/27/18 18:30 Valproic Acid 83.2 ug/mL (50.0-100.0) 08/01/18 12:45 RPR NONREACTIVE (NONREACTIVE) 07/27/18 18:40 - Physical Exam Vitals and I&O: Vital Signs Temp 97.5 F 08/18/18 14:00 Pulse 96 08/18/18 14:00 Resp 20 08/18/18 14:00 BP 100/67 08/18/18 14:00 Pulse Ox 98 08/18/18 14:00 Intake & Output 08/17/18 08/18/18 08/18/18 18:59 06:59 18:59 Intake Total 1200 240 Balance 1200 240 Intake: Oral 1200 240 Other: # Voids 2 # Bowel Movements 1 Active Medications: Current Medications Acetaminophen (Tylenol) 650 mg PO Q4HR PRN PRN Reason: Pain (Mild) Stop: 09/25/18 22:04 Docusate Sodium (Colace) 100 mg PO BID [facility] Stop: 09/26/18 08:59 Last Admin: 08/18/18 09:08 Dose: 100 mg Famotidine (Pepcid) 40 mg PO DAILY [facility]EL Stop: 09/26/18 08:59 Last Admin: 08/18/18 09:07 Dose: 40 mg Levetiracetam (Keppra) 500 mg PO BID [facility] Stop: 09/26/18 08:59 Last Admin: 08/18/18 09:08 Dose: 500 mg Lorazepam (Ativan) 0.5 mg PO Q4HR PRN; Protocol PRN Reason: Anxiety Stop: 08/26/18 21:50 Last Admin: 08/02/18 16:30 Dose: 0.5 mg Magnesium Hydroxide (Milk Of Magnesia) 30 ml PO HS PRN PRN Reason: constipation Stop: 09/29/18 22:11 Metoprolol Tartrate (Lopressor) 50 mg PO BID [facility] Stop: 09/26/18 08:59 Last Admin: 08/18/18 09:09 Dose: Not Given Quetiapine Fumarate 200 mg/ (Quetiapine Fumarate 25 mg) 225 mg PO BID [facility] Stop: 10/14/18 16:59 Last Admin: 08/18/18 09:08 Dose: 225 mg Risperidone (Risperdal) 2 mg PO BID [facility]; Protocol Stop: 10/13/18 16:59 Last Admin: 08/18/18 09:07 Dose: 2 mg Valproate Sodium (Depakene) 500 mg PO BID [facility]; Protocol Stop: 09/27/18 16:59 Last Admin: 08/18/18 09:07 Dose: 500 mg Zolpidem Tartrate (Ambien) 5 mg PO HS PRN PRN Reason: Insomnia Stop: 09/25/18 21:50 Last Admin: 08/07/18 20:26 Dose: 5 mg General: demented HEENT: NC/AT, PERRLA, EOMI, anicteric sclerae, throat clear Neck: Supple, No JVD, No thyromegaly, +2 carotid pulse wo bruit, No LAD Lungs: CTAB Cardiovascular: RRR, Normal S1, Normal S2, without murmur Abdomen: soft, non-tender, non-distended Neurological: no change - Procedures Procedures: Procedures Procedure Code Date GROUP PSYCHOTHERAPY 46886 07/16/15 GROUP PSYCHOTHERAPY GZHZZZZ 07/16/15 INDIVID PSYCHOTHERAP NEC 94.39 09/06/13 OTHER GROUP THERAPY 94.44 05/03/14 RECREATIONAL THERAPY 93.81 08/25/12 Internal Medicine Assmt/Plan - Assessment Assessment: 1.HTN. 2.HYPERLIPIDEMIA. 3.SEIZURE DISORDERED. 4.DEMENTIA. - Plan Plan: CONTINUE ON CURRENT MEDICATION AND DIET. Nutritional Asmnt/Malnutr-PDOC - Dietary Evaluation Malnutrition Findings (Please click <Entered> for more info): Nutritional Asmnt/Malnutrition Start: 07/31/18 13: 00 Text: Status: Complete Freq: Protocol: Document 07/31/18 13:00 DELISA (Rec: 07/31/18 13:08 DELISA [email or web address]) Nutritional Asmnt/Malnutrition Patient General Information Nutritional Screening Moderate Risk Diagnosis psychosis Pertinent Medical Hx/Surgical Hx HTN, DM, CHF, asthma/COPD, dyslipidemia, seizures, arthritis, s/p pneumonia, cardiac arrhythmia, chronic renal disease, scoliosis, dementia, major depression, paranoid schizophrenia, cerebrovascular disease Subjective Information Pt sitting in rec room at time of visit. Pt appeared anxious and walked away when approached. Nursing noted PO intake: 75-100%. Current Diet Order/ Nutrition Support [facility] soft ground, MAURA, CCHO, low fat Pertinent Medications seroquel, colace, pepcid, keppra, MOM Pertinent Labs 07/27: Na 135, Cholesterol 223 -226, glucose 99 Nutritional Hx/Data Height 1.57 m Height (Calculated Centimeters) 157.5 Current Weight (lbs) 58.967 kg Weight (Calculated Kilograms) 59.0 Weight (Calculated Grams) 63372.0 [place] Body Weight 118 lb Body Mass Index (BMI) 23.8 Weight Status Approriate GI Symptoms GI Symptoms None Last BM 07/30 Difficult in: None Food Allergies No Skin Integrity/Comment: intact, rosa 19 Current %PO Good (75-100%) Estimated Nutritional Goals BEE in Kcals: Using Current wt Calories/Kcals/Kg 25-30 Kcals Calculated 5957-3901 Protein: Using Current wt Protein g/k.0 Protein Calculated 59 g Fluid: ml 5633-9376 (1 ml/kcal) Nutritional Problem No current Nutrition Prob Problem no nutrition dx at this time Malnutrition Alert Is there a minimum of two criteria No selected? Query Text:Check all the applicable criteria. A minimum of two criteria are recommended for diagnosis of either severe or non-severe malnutrition. Malnutrition Related to Morbid Obesity Malnutrition related to morbid obesity No Intervention/Recommendation Comments 1. Consider checking HgA1C to assess need for CCHO diet 2. Continue with [facility] soft ground, MAURA, low fat diet as ordered 3. Monitor PO intake, wt, labs and skin integrity 4. F/U as low risk in 7 days, 08/07 Expected Outcomes/Goals Expected Outcomes/Goals 1. PO intake to continue meeting at least 75% of all meals 2. Wt stability, skin to remain intact, labs to approach WNL Reviewed by Gloria eBcker RD
== END 2018-08-18 16:00 | DRG 885 ==
LOC: ER 16:31 → GERO2 20:05 → GERO 07-28 17:58
PROVIDERS: ADMIT Psychiatry & Neurology Psychiatry; ATTEND Psychiatry & Neurology Psychiatry
DX: F20.0 Paranoid schizophrenia (principal); N18.9 Chronic kidney disease, unspecified; I13.0 Hypertensive heart and chronic kidney disease with heart failure and stage 1 through stage 4 chronic kidney disease, or unspecified chronic kidney disease; G40.909 Epilepsy, unspecified, not intractable, without status epilepticus; I50.9 Heart failure, unspecified; J44.9 Chronic obstructive pulmonary disease, unspecified; E78.5 Hyperlipidemia, unspecified; M19.90 Unspecified osteoarthritis, unspecified site; E11.22 Type 2 diabetes mellitus with diabetic chronic kidney disease; F03.90 Unspecified dementia, unspecified severity, without behavioral disturbance, psychotic disturbance, mood disturbance, and anxiety; F32.9 Major depressive disorder, single episode, unspecified; F29 Unspecified psychosis not due to a substance or known physiological condition; Z86.73 Personal history of transient ischemic attack (TIA), and cerebral infarction without residual deficits; Z88.8 Allergy status to other drugs, medicaments and biological substances
CPT/HCPCS: 36415-UA; 80053-TC; 80061-TC; 80164-TC; 81001-TC; 83036-90; 84443-TC; 85025-TC; 86592-TC; 87086-90; 90899; 93005; G0410; Z7610

== ENCOUNTER 2019-01-04 20:02 | Inpatient (IN) | payer MEDICAID, MEDICARE ==
--- NOTE | 2019-01-04 20:53 | ED Physician Chart ---
ED Chief Complaint/HPI - Patient Information Date Seen:: 01/04/19 Time Seen:: 20:40 Chief Complaint:: increased hallucinations History of Present Illness:: Patient has reportedly had increased hallucinations and increased agitation at his board and care facility. Patient is confused so unable to provide a reliable history. Allergies:: Allergies Allergy/AdvReac Type Severity Reaction Status Date / Time fluphenazine Allergy Verified 11/10/17 17:12 trifluoperazine Allergy Verified 11/10/17 18:11 [From Stelazine] Vitals:: Vital Signs - 8 hr 01/04/19 20:10 Temp 98.1 F HR 84 RR 17 BP 122/79 O2 Sat % 96 Historian:: Patient Review:: Transfer documents Reviewed ED Review of Systems - Review of Systems General/Constitutional: No fever, No chills, No weight loss, No weakness, No diaphoresis, No edema, No loss of appetite Skin: No skin lesions, No rash, No bruising Head: No headache, No light-headedness Eyes: No loss of vision, No pain, No diplopia ENT: No earache, No nasal drainage, No sore throat, No tinnitus Neck: No neck pain, No swelling, No thyromegaly, No stiffness, No mass noted Cardio Vascular: No chest pain, No palpitations, No PND, No orthopnea, No edema Pulmonary: No SOB, No cough, No sputum, No wheezing GI: No nausea, No vomiting, No diarrhea, No pain, No melena, No hematochezia, No constipation, No hematemesis G/U: No dysuria, No frequency, No hematuria Musculoskeletal: No bone or joint pain, No back pain, No muscle pain Endocrine: No polyuria, No polydipsia Psychiatric: Prior psych history Hematopoietic: No bruising, No lymphadenopathy Allergic/Immuno: No urticaria, No angioedema Neurological: No syncope, No focal symptoms, No weakness, No paresthesia, No headache, No seizure, No dizziness, No confusion, No vertigo ED Past Medical History - Past Medical History Past Medical History: HTN, DM, CVA/TIA, Dyslipidemia, PUD/GERD, Seizures, Arthritis, Dementia, Other (paranoid schizophrenia; depression) Family History: Other (unavailable) Social History: Care Facility Surgical History: other (unavailable) Psychiatricy History: Depression, Other (schizophrenia) Family Medical History - Family Member Mother History Unknown: Yes Ethnicity: Unknown Living Status: Unknown Hx Family Coronary Artery Disease: (NONE) Hx Family Congestive Heart Failure: (NONE) ED Physical Exam - Physical Examination General/Constitutional: Awake, Well-developed, well-nourished, Alert Other Gen/Cons comments:: Patient is confused. He states the year is 1917 Head: Atraumatic Eyes: Lids, conjuctiva normal, PERRL Skin: Nl inspection, No rash ENMT: External ears, nose nl Other ENMT comments:: Edentulous Neck: No nuchal rigidity Respiratory: Nl effort/Exclusion, Clear to Auscultation Cardio Vascular: RRR GI: No tenderness/rebounding/guarding, Normal BS's : No CVA tenderness Extremities: Normal digits & nails Neuro/Psych: No focal deficits ED Labs/Radiology/EKG Results - Lab Results Results: Laboratory Results WBC 5.9 Th/cmm (4.8-10.8) 01/04/19 21:00 RBC 4.36 Mil/cmm (3.80-5.80) 01/04/19 21:00 Hgb 12.7 gm/dL (12-16) 01/04/19 21:00 Hct 38.1 % (41.0-60) L 01/04/19 21:00 MCV 87.3 fl (80-99) 01/04/19 21:00 MCH 29.1 pg (27.0-31.0) 01/04/19 21:00 MCHC Differential 33.3 pg (28.0-36.0) 01/04/19 21:00 RDW 14.6 % (11.5-20.0) 01/04/19 21:00 Plt Count 277 Th/cmm (150-400) 01/04/19 21:00 MPV 8.0 fl 01/04/19 21:00 Neutrophils % 46.1 % (40.0-80.0) 01/04/19 21:00 Lymphocytes % 35.8 % (20.0-50.0) 01/04/19 21:00 Monocytes % 13.6 % (2.0-10.0) H 01/04/19 21:00 Eosinophils % 4.0 % (0.0-5.0) 01/04/19 21:00 Basophils % 0.5 % (0.0-2.0) 01/04/19 21:00 Sodium 136 mEq/L (136-145) 01/04/19 21:00 Potassium 4.1 mEq/L (3.5-5.1) 01/04/19 21:00 Chloride 102 mEq/L (98-107) 01/04/19 21:00 Carbon Dioxide 24.8 mEq/L (21.0-31.0) 01/04/19 21:00 Anion Gap 13.3 (7.0-16.0) 01/04/19 21:00 BUN 16 mg/dL (7-25) 01/04/19 21:00 Creatinine 0.8 mg/dL (0.7-1.3) 01/04/19 21:00 Est GFR ( Amer) > 60.0 ml/min (>90) 01/04/19 21:00 Est GFR (Non-Af Amer) > 60.0 ml/min 01/04/19 21:00 BUN/Creatinine Ratio 20.0 01/04/19 21:00 Glucose 125 mg/dL (70-105) H 01/04/19 21:00 Calcium 9.5 mg/dL (8.6-10.3) 01/04/19 21:00 Total Bilirubin 0.3 mg/dL (0.3-1.0) 01/04/19 21:00 AST 13 U/L (13-39) 01/04/19 21:00 ALT 6 U/L (7-52) L 01/04/19 21:00 Alkaline Phosphatase 63 U/L (34-104) 01/04/19 21:00 Total Protein 6.9 gm/dL (6.0-8.3) 01/04/19 21:00 Albumin 4.1 gm/dL (4.2-5.5) L 01/04/19 21:00 Globulin 2.8 gm/dL 01/04/19 21:00 Albumin/Globulin Ratio 1.5 (1.0-1.8) 01/04/19 21:00 Triglycerides 168 mg/dL (<150) H 01/04/19 21:00 Cholesterol 223 mg/dL (<200) H 01/04/19 21:00 LDL Cholesterol Direct 151 mg/dL (75-193) 01/04/19 21:00 HDL Cholesterol 51 mg/dL (23-92) 01/04/19 21:00 Urine Source RANDOM 01/04/19 20:44 Urine Color YELLOW 01/04/19 20:44 Urine Clarity CLEAR (CLEAR) 01/04/19 20:44 Urine pH 7.0 (4.6 - 8.0) 01/04/19 20:44 Ur Specific [place] 1.010 (1.005-1.030) 01/04/19 20:44 Urine Protein NEGATIVE mg/dL (NEGATIVE) 01/04/19 20:44 Urine Glucose (UA) NEGATIVE mg/dL (NEGATIVE) 01/04/19 20:44 Urine Ketones NEGATIVE mg/dL (NEGATIVE) 01/04/19 20:44 Urine Blood NEGATIVE (NEGATIVE) 01/04/19 20:44 Urine Nitrate NEGATIVE (NEGATIVE) 01/04/19 20:44 Urine Bilirubin NEGATIVE (NEGATIVE) 01/04/19 20:44 Urine Urobilinogen 0.2 E.U./dL (0.2 - 1.0) 01/04/19 20:44 Ur Leukocyte Esterase NEGATIVE (NEGATIVE) 01/04/19 20:44 Salicylates < 25.0 mg/L (30.0-100.0) L 01/04/19 21:00 Urine Opiates Screen NEGATIVE (NEGATIVE) 01/04/19 20:44 Urine Methadone Screen NEGATIVE (NEGATIVE) 01/04/19 20:44 Acetaminophen < 10.0 ug/mL (10.0-30.0) L 01/04/19 21:00 Ur Barbiturates Screen NEGATIVE (NEGATIVE) 01/04/19 20:44 Ur Tricyclics Screen POSITIVE (NEGATIVE) H 01/04/19 20:44 Ur Phencyclidine Scrn NEGATIVE (NEGATIVE) 01/04/19 20:44 Amphetamines Screen NEGATIVE (NEGATIVE) 01/04/19 20:44 U Methamphetamines Scrn NEGATIVE (NEGATIVE) 01/04/19 20:44 U Benzodiazepines Scrn NEGATIVE (NEGATIVE) 01/04/19 20:44 U Cocaine Metab Screen NEGATIVE (NEGATIVE) 01/04/19 20:44 U Cannabinoids Screen NEGATIVE (NEGATIVE) 01/04/19 20:44 Ethyl Alcohol < 10 mg/dL (0-10) 01/04/19 21:00 - EKG Interpretations Rate & Rhythm: normal sinus rhythm with a rate of 87 [place]: normal ED Septic Shock - . Is Septic Shock (SBP<90, OR Lactate>4 mmol\L) present?: No - <6hrs of presentation: Vital Signs: Vital Signs - 8 hr 01/04/19 20:10 Temp 98.1 F HR 84 RR 17 BP 122/79 O2 Sat % 96 ED Reassessment (Disposition) - Reassessment Reassessment Condition:: Unchanged - Diagnosis Diagnosis:: Agitation; paranoid schizophrenia; depression - Patient Disposition Admitted to:: [facility] Admitting Medical Physician:: Thierry Bedoya Admitting Psych Physician:: Diandra Peguero Condition at Disposition:: Stable, Unchanged
[2019-01-04 21:27] LABS: ACETAMINOPHEN < 10.0 ug/mL (10.0-30.0); ALB/GLOB RATIO 1.5 (1.0-1.8); ALBUMIN 4.1 gm/dL (4.2-5.5); ALKALINE PHOSPHATASE 63 U/L (34-104); ANION GAP 13.3 (7.0-16.0); BILIRUBIN,TOTAL 0.3 mg/dL (0.3-1.0); BUN - UREA NITROGEN 16 mg/dL (7-25); CALCIUM SERUM 9.5 mg/dL (8.6-10.3); CARBON DIOXIDE 24.8 mEq/L (21.0-31.0); CHLORIDE 102 mEq/L (98-107); CHOLESTEROL 223 mg/dL (<200); CREATININE - SERUM 0.8 mg/dL (0.7-1.3); GFR AFRICAN-AMERICAN > 60.0 ml/min (>90); GFR NON AFRICAN-AMERICAN > 60.0 ml/min; GLUCOSE 125 mg/dL (70-105); HDL -HIGH DENSITY LIPOPROTEIN 51 mg/dL (23-92); POTASSIUM SERUM 4.1 mEq/L (3.5-5.1); SALICYLATES (ASPIRIN) < 25.0 mg/L (30.0-100.0); SGOT 13 U/L (13-39); SGPT/ALT 6 U/L (7-52); SODIUM SERUM 136 mEq/L (136-145); TOTAL PROTEIN,SERUM 6.9 gm/dL (6.0-8.3); TRIGLYCERIDES 168 mg/dL (<150)
[2019-01-04 21:37] LABS: URINE SOURCE RANDOM
[2019-01-04 21:42] LABS: % BASOPHILS 0.5 % (0.0-2.0); % LYMPHOCYTES 35.8 % (20.0-50.0); % MONOCYTES 13.6 % (2.0-10.0); % NEUTROPHILS 46.1 % (40.0-80.0); EOSINOPHILE ABSOLUTE 0.2 Th/cmm (0.1-0.4); HEMATOCRIT 38.1 % (41.0-60); HEMOGLOBIN 12.7 gm/dL (12-16); LYMPHOCYTE ABSOLUTE 2.1 Th/cmm (1.5-3.0); MEAN CELL VOLUME 87.3 fl (80-99); MEAN CORPUSCULAR HEMOGLOBIN 29.1 pg (27.0-31.0); MEAN CORPUSCULAR HGB CONC 33.3 pg (28.0-36.0); MONOCYTE ABSOLUTE 0.8 Th/cmm (0.3-1.0); NEUTROPHILE ABSOLUTE 2.8 Th/cmm (1.8-8.0); PLATELET COUNT 277 Th/cmm (150-400); RED BLOOD COUNT 4.36 Mil/cmm (3.80-5.80); RED CELL DISTRIBUTION WIDTH 14.6 % (11.5-20.0); WHITE BLOOD COUNT 5.9 Th/cmm (4.8-10.8)
[2019-01-04 21:44] LABS: URINE BILIRUBIN NEGATIVE (NEGATIVE); URINE BLOOD NEGATIVE (NEGATIVE); URINE GLUCOSE (UA) NEGATIVE (NEGATIVE); URINE KETONE NEGATIVE (NEGATIVE); URINE LEUKOCYTE ESTERASE NEGATIVE (NEGATIVE); URINE NITRATE NEGATIVE (NEGATIVE); URINE PROTEIN NEGATIVE (NEGATIVE); URINE UROBILINOGEN 0.2 E.U./dL (0.2 - 1.0)
[2019-01-04 21:50] LABS: URINE CLARITY CLEAR (CLEAR); URINE COLOR YELLOW; URINE MICROSCOPIC INDICATED? NO
[2019-01-04 21:57] LABS: AMPHETAMINE URINE NEGATIVE (NEGATIVE); BARBITURATES URINE NEGATIVE (NEGATIVE); BENZODIAZEPINES QUAL URINE NEGATIVE (NEGATIVE); CANNABINOID THC NEGATIVE (NEGATIVE); COCAINE METABOLITE QUAL URINE NEGATIVE (NEGATIVE); METHADONE URINE NEGATIVE (NEGATIVE); METHAMPHETAMINES QUAL URINE NEGATIVE (NEGATIVE); OPIATES (MORPHINE) QUAL. URINE NEGATIVE (NEGATIVE); PHENCYCLIDINE (PCP) URINE NEGATIVE (NEGATIVE); TRICYCLICS (TCA) QUAL. URINE POSITIVE (NEGATIVE)
[2019-01-04 23:31] VITALS: BP 149/89
[2019-01-04] MEDS ORDERED: Maalox 30 mL Cup PO PRN (23:50)
[2019-01-04] MEDS ORDERED: Magnesium Hydroxide (MOM) 30 mL UDC PO PRN (23:54)
[2019-01-05] MEDS: Multivitamin w/ Minerals Tab PO SCH (08:34)
--- NOTE | 2019-01-05 13:08 | History & Physical ---
ADMIT DATE: 01/04/2019 IDENTIFYING INFORMATION: The patient is a 68-year-old male. CHIEF COMPLAINT: "I am hearing voices." HISTORY OF PRESENT ILLNESS: The patient was referred because of hearing voices, hallucination, and has been agitated. The patient is confused, unable to provide reliable history. When I talked to him, he agrees, he has been hearing voices. He reports he has difficulty with sleep and appetite. He denies any substance abuse. He said the voices are not command in nature. The patient is a well-known patient with multiple prior admissions to this facility and he has been at [place]. The patient reports he was taking his medication and he has been on Seroquel, Depakote, and Risperdal. He is also on Risperdal 2 mg twice a day. PAST PSYCHIATRIC HISTORY: Multiple prior admissions to this facility for similar reasons. MEDICAL HISTORY: The patient currently has no medical conditions. ALLERGIES: HE IS ALLERGIC TO FLUPHENAZINE AND TRIFLUOPERAZINE. FAMILY AND SOCIAL HISTORY: The patient is single and never , no children. 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 Denies substance abuse problem. Denies family psychotic disorder. No family support. MENTAL STATUS EXAMINATION: The patient is appropriately dressed, not well groomed. He is alert. He is unable to tell me the date. He knew he was in the hospital. He reports hearing voices with poor energy and motivation, poor sleep and appetite, has been depressed. He denies any current intent to harm himself or anybody. He has been hearing voices telling him different things and not command hallucination. He seems to have average intelligence just prior to give information. Fund of knowledge and knowledge of the [employer]. Concentration is fair. Long and short term memory varies. 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 Recent memory is good for events that are coming here. His insight about his illness is fair judgment is poor because of his psychosis. IMPRESSION: Schizoaffective disorder. MEDICAL DIAGNOSES: Seizure disorder. INITIAL TREATMENT PLAN: We will continue with the [place]. We will continue with his medication. We will do group therapy and milieu therapy. ESTIMATED LENGTH OF STAY: 3-7 days. DISCHARGE CRITERIA: Decreasing psychosis, agitation. After discharge, outpatient treatment. [facility]# [id number]
--- NOTE | 2019-01-05 23:03 | History & Physical ---
ADMIT DATE: HISTORY OF PRESENT ILLNESS: The patient is a 68-year-old male with long history of hypertension, seizure disorder, degenerative joint disease, psychosis, admitted to [facility] under Dr. Peguero's service for evaluation and treatment. The patient has been very confused and agitated. No fever, no chills, no nausea, no vomiting. PAST MEDICAL HISTORY: Significant for hypertension, degenerative joint disease, seizure disorder, psychosis. PAST SURGICAL HISTORY: No recent surgery. ALLERGIES: FLUPHENAZINE. SOCIAL HISTORY: No alcohol, no drug, no smoking. FAMILY HISTORY: Noncontributory. MEDICATIONS: Follow admission reconciliation. REVIEW OF SYSTEMS: IMMUNO SYSTEM: No history of chronic immune disorder. CARDIOVASCULAR SYSTEM: There is history of hypertension. No coronary artery disease. ENDOCRINE SYSTEM: No diabetes or thyroid problem. GASTROINTESTINAL SYSTEM: No upper or lower gastrointestinal bleed. NEUROLOGICAL: He has history of seizure disorder. SKELETOMUSCULAR SYSTEM: No muscular dystrophy. HEMATOLOGIC SYSTEM: No bleeding tendencies. RESPIRATORY SYSTEM: No asthma. GENITOURINARY: No dysuria or hematuria. PHYSICAL EXAMINATION: GENERAL: He is awake, alert, not confused. VITAL SIGNS: Temperature 98.2, heart rate 89, blood pressure 190/71. HEENT: Normocephalic. Pupils reactive to light and accommodation. Sclerae clear. NECK: Supple. Negative for lymphadenopathy, JVD, or bruit. CHEST: Entry of air bilaterally normal. No rales, rhonchi, or wheezing. HEART: S1, S2 normal. No gallop rhythm. ABDOMEN: Soft, bowel sounds positive. EXTREMITIES: No edema. NEUROLOGIC: Awake, alert, not fully oriented. No focal muscle deficits. Cranial nerves 2-12 are intact. ASSESSMENT: 1. Hypertension. 2. Seizure disorder. 3. Degenerative joint disease. 4. Psychosis. PLAN: The patient admitted to the hospital under Dr. Peguero's service. Medical problem addressed during hospitalization is psychosis. Problems addressed at discharge are hypertension and seizure disorder. The patient is medically stable for activity. Thank you, Dr. Peguero, for asking me to see your patient. The patient will follow up with primary physician upon discharge. JOB# [id number]
[2019-01-06] MEDS: Multivitamin w/ Minerals Tab PO SCH (09:58)
--- NOTE | 2019-01-06 17:02 | Internal Medicine Prog Note ---
Internal Medicine Subjective - Subjective Service Date: 01/06/19 Patient seen and examined:: without staff (HE IS DOING WELL) Patient is:: awake, in bed, talking Per staff patient has:: no adverse event Internal Medicine Objective - Results Result Diagrams: 01/04/19 21:00 01/04/19 21:00 Recent Labs: Laboratory Last Values WBC 5.9 Th/cmm (4.8-10.8) 01/04/19 21:00 RBC 4.36 Mil/cmm (3.80-5.80) 01/04/19 21:00 Hgb 12.7 gm/dL (12-16) 01/04/19 21:00 Hct 38.1 % (41.0-60) L 01/04/19 21:00 MCV 87.3 fl (80-99) 01/04/19 21:00 MCH 29.1 pg (27.0-31.0) 01/04/19 21:00 MCHC Differential 33.3 pg (28.0-36.0) 01/04/19 21:00 RDW 14.6 % (11.5-20.0) 01/04/19 21:00 Plt Count 277 Th/cmm (150-400) 01/04/19 21:00 MPV 8.0 fl 01/04/19 21:00 Neutrophils % 46.1 % (40.0-80.0) 01/04/19 21:00 Lymphocytes % 35.8 % (20.0-50.0) 01/04/19 21:00 Monocytes % 13.6 % (2.0-10.0) H 01/04/19 21:00 Eosinophils % 4.0 % (0.0-5.0) 01/04/19 21:00 Basophils % 0.5 % (0.0-2.0) 01/04/19 21:00 Sodium 136 mEq/L (136-145) 01/04/19 21:00 Potassium 4.1 mEq/L (3.5-5.1) 01/04/19 21:00 Chloride 102 mEq/L (98-107) 01/04/19 21:00 Carbon Dioxide 24.8 mEq/L (21.0-31.0) 01/04/19 21:00 Anion Gap 13.3 (7.0-16.0) 04/04/19 21:00 BUN 16 mg/dL (7-25) 01/04/19 21:00 Creatinine 0.8 mg/dL (0.7-1.3) 01/04/19 21:00 Est GFR ( Amer) > 60.0 ml/min (>90) 01/04/19 21:00 Est GFR (Non-Af Amer) > 60.0 ml/min 01/04/19 21:00 BUN/Creatinine Ratio 20.0 01/04/19 21:00 Glucose 125 mg/dL (70-105) H 01/04/19 21:00 Calcium 9.5 mg/dL (8.6-10.3) 01/04/19 21:00 Total Bilirubin 0.3 mg/dL (0.3-1.0) 01/04/19 21:00 AST 13 U/L (13-39) 01/04/19 21:00 ALT 6 U/L (7-52) L 01/04/19 21:00 Alkaline Phosphatase 63 U/L (34-104) 01/04/19 21:00 Total Protein 6.9 gm/dL (6.0-8.3) 01/04/19 21:00 Albumin 4.1 gm/dL (4.2-5.5) L 01/04/19 21:00 Globulin 2.8 gm/dL 01/04/19 21:00 Albumin/Globulin Ratio 1.5 (1.0-1.8) 01/04/19 21:00 Triglycerides 168 mg/dL (<150) H 01/04/19 21:00 Cholesterol 223 mg/dL (<200) H 01/04/19 21:00 LDL Cholesterol Direct 151 mg/dL (75-193) 01/04/19 21:00 HDL Cholesterol 51 mg/dL (23-92) 01/04/19 21:00 TSH 3.63 uIU/ml (0.34-5.60) 01/04/19 21:00 Urine Source RANDOM 01/04/19 20:44 Urine Color YELLOW 01/04/19 20:44 Urine Clarity CLEAR (CLEAR) 01/04/19 20:44 Urine pH 7.0 (4.6 - 8.0) 01/04/19 20:44 Ur Specific [place] 1.010 (1.005-1.030) 01/04/19 20:44 Urine Protein NEGATIVE mg/dL (NEGATIVE) 01/04/19 20:44 Urine Glucose (UA) NEGATIVE mg/dL (NEGATIVE) 01/04/19 20:44 Urine Ketones NEGATIVE mg/dL (NEGATIVE) 01/04/19 20:44 Urine Blood NEGATIVE (NEGATIVE) 01/04/19 20:44 Urine Nitrate NEGATIVE (NEGATIVE) 01/04/19 20:44 Urine Bilirubin NEGATIVE (NEGATIVE) 01/04/19 20:44 Urine Urobilinogen 0.2 E.U./dL (0.2 - 1.0) 01/04/19 20:44 Ur Leukocyte Esterase NEGATIVE (NEGATIVE) 01/04/19 20:44 Salicylates < 25.0 mg/L (30.0-100.0) L 01/04/19 21:00 Urine Opiates Screen NEGATIVE (NEGATIVE) 01/04/19 20:44 Urine Methadone Screen NEGATIVE (NEGATIVE) 01/04/19 20:44 Acetaminophen < 10.0 ug/mL (10.0-30.0) L 01/04/19 21:00 Ur Barbiturates Screen NEGATIVE (NEGATIVE) 01/04/19 20:44 Ur Tricyclics Screen POSITIVE (NEGATIVE) H 01/04/19 20:44 Ur Phencyclidine Scrn NEGATIVE (NEGATIVE) 01/04/19 20:44 Amphetamines Screen NEGATIVE (NEGATIVE) 01/04/19 20:44 U Methamphetamines Scrn NEGATIVE (NEGATIVE) 01/04/19 20:44 U Benzodiazepines Scrn NEGATIVE (NEGATIVE) 01/04/19 20:44 U Cocaine Metab Screen NEGATIVE (NEGATIVE) 01/04/19 20:44 U Cannabinoids Screen NEGATIVE (NEGATIVE) 01/04/19 20:44 Ethyl Alcohol < 10 mg/dL (0-10) 01/04/19 21:00 RPR NONREACTIVE (NONREACTIVE) 01/04/19 21:00 - Physical Exam Vitals and I&O: Vital Signs Temp 97.9 F 01/06/19 14:00 Pulse 89 01/06/19 16:58 Resp 18 01/06/19 14:00 BP 141/78 01/06/19 16:58 Pulse Ox 96 01/06/19 14:00 Intake & Output 01/05/19 01/06/19 01/06/19 18:59 06:59 18:59 Intake Total 1080 240 Balance 1080 240 Intake: Oral 1080 240 Other: # Voids 1 2 Active Medications: Current Medications Al Hydrox/Mg Hydrox/Simethicone (Maalox) 30 ml PO PRN PRN PRN Reason: GI DISTRESS Stop: 03/05/19 23:49 Divalproex Sodium (Depakote Dr) 250 mg PO AC [facility] Stop: 03/06/19 16:29 Last Admin: 01/06/19 16:30 Dose: 250 mg Docusate Sodium (Colace) 250 mg PO DAILY [facility] Stop: 03/06/19 08:59 Last Admin: 01/06/19 09:57 Dose: 250 mg Famotidine (Pepcid) 40 mg PO DAILY [facility] Stop: 03/06/19 08:59 Last Admin: 01/06/19 09:58 Dose: 40 mg Levetiracetam (Keppra) 500 mg PO BID [facility] Stop: 03/06/19 08:59 Last Admin: 01/06/19 16:58 Dose: 500 mg Magnesium Hydroxide (Milk Of Magnesia) 30 ml PO HS PRN PRN Reason: Constipation Stop: 03/05/19 23:53 Metoprolol Tartrate (Lopressor) 50 mg PO BID [facility] Stop: 03/06/19 08:59 Last Admin: 01/06/19 16:58 Dose: 50 mg Quetiapine Fumarate (Seroquel) 200 mg PO HS [facility]; Protocol Stop: 03/06/19 20:59 Risperidone (Risperdal) 2 mg PO BID [facility] Stop: 03/06/19 16:59 Last Admin: 01/06/19 09:57 Dose: 2 mg General: demented HEENT: NC/AT, PERRLA, EOMI, anicteric sclerae, throat clear Neck: Supple, No JVD, No thyromegaly, +2 carotid pulse wo bruit, No LAD Cardiovascular: RRR, Normal S1, Normal S2, without murmur Abdomen: soft, non-tender, non-distended Neurological: no change - Procedures Procedures: Procedures Procedure Code Date GROUP PSYCHOTHERAPY 44200 07/16/15 GROUP PSYCHOTHERAPY GZHZZZZ 07/16/15 INDIVID PSYCHOTHERAP NEC 94.39 09/06/13 OTHER GROUP THERAPY 94.44 05/03/14 RECREATIONAL THERAPY 93.81 08/25/12 Internal Medicine Assmt/Plan - Assessment Assessment: 1.HTN. 2.SEIZURE DISORDER. 3.DJD. 4.PSYCHOSIS. - Plan Plan: CONTINUE ON CURRENT MEDICATION AND DIET.
--- NOTE | 2019-01-07 05:07 | Progress Notes ---
DATE: 01/06/2019 SUBJECTIVE: Case was discussed with staff of the patient, reviewed records. The patient continues to be psychotic, internally preoccupied, responding to internal stimuli. Continues to be unpredictable, impulsive, needing redirection, psychotic, confused and easily agitated. His lab work showed CBC with low hematocrit and high monocyte. The rest within normal range. Chemistry panel with high blood sugar, low ALT, low albumin, high triglyceride and cholesterol. The rest within normal range. TSH within normal range. Urinalysis within normal range. Toxicology screen is positive for tricyclics. We will continue to work with the patient in group therapy, milieu therapy and adjust the medications as needed. JOB# [id number]
[2019-01-07] MEDS: Multivitamin w/ Minerals Tab PO SCH (09:32)
--- NOTE | 2019-01-07 18:58 | Internal Medicine Prog Note ---
Internal Medicine Subjective - Subjective Service Date: 01/07/19 Patient seen and examined:: with staff Patient is:: awake, in bed, talking Per staff patient has:: no adverse event Internal Medicine Objective - Results Result Diagrams: 01/04/19 21:00 01/04/19 21:00 Recent Labs: Laboratory Last Values WBC 5.9 Th/cmm (4.8-10.8) 01/04/19 21:00 RBC 4.36 Mil/cmm (3.80-5.80) 01/04/19 21:00 Hgb 12.7 gm/dL (12-16) 01/04/19 21:00 Hct 38.1 % (41.0-60) L 01/04/19 21:00 MCV 87.3 fl (80-99) 01/04/19 21:00 MCH 29.1 pg (27.0-31.0) 01/04/19 21:00 MCHC Differential 33.3 pg (28.0-36.0) 01/04/19 21:00 RDW 14.6 % (11.5-20.0) 01/04/19 21:00 Plt Count 277 Th/cmm (150-400) 01/04/19 21:00 MPV 8.0 fl 01/04/19 21:00 Neutrophils % 46.1 % (40.0-80.0) 01/04/19 21:00 Lymphocytes % 35.8 % (20.0-50.0) 01/04/19 21:00 Monocytes % 13.6 % (2.0-10.0) H 01/04/19 21:00 Eosinophils % 4.0 % (0.0-5.0) 01/04/19 21:00 Basophils % 0.5 % (0.0-2.0) 01/04/19 21:00 Sodium 136 mEq/L (136-145) 01/04/19 21:00 Potassium 4.1 mEq/L (3.5-5.1) 01/04/19 21:00 Chloride 102 mEq/L (98-107) 01/04/19 21:00 Carbon Dioxide 24.8 mEq/L (21.0-31.0) 01/04/19 21:00 Anion Gap 13.3 (7.0-16.0) 01/04/19 21:00 BUN 16 mg/dL (7-25) 01/04/19 21:00 Creatinine 0.8 mg/dL (0.7-1.3) 01/04/19 21:00 Est GFR ( Amer) > 60.0 ml/min (>90) 01/04/19 21:00 Est GFR (Non-Af Amer) > 60.0 ml/min 01/04/19 21:00 BUN/Creatinine Ratio 20.0 01/04/19 21:00 Glucose 125 mg/dL (70-105) H 01/04/19 21:00 Calcium 9.5 mg/dL (8.6-10.3) 01/04/19 21:00 Total Bilirubin 0.3 mg/dL (0.3-1.0) 01/04/19 21:00 AST 13 U/L (13-39) 01/04/19 21:00 ALT 6 U/L (7-52) L 01/04/19 21:00 Alkaline Phosphatase 63 U/L (34-104) 01/04/19 21:00 Total Protein 6.9 gm/dL (6.0-8.3) 01/04/19 21:00 Albumin 4.1 gm/dL (4.2-5.5) L 01/04/19 21:00 Globulin 2.8 gm/dL 01/04/19 21:00 Albumin/Globulin Ratio 1.5 (1.0-1.8) 01/04/19 21:00 Triglycerides 168 mg/dL (<150) H 01/04/19 21:00 Cholesterol 223 mg/dL (<200) H 01/04/19 21:00 LDL Cholesterol Direct 151 mg/dL (75-193) 01/04/19 21:00 HDL Cholesterol 51 mg/dL (23-92) 01/04/19 21:00 TSH 3.63 uIU/ml (0.34-5.60) 01/04/19 21:00 Urine Source RANDOM 01/04/19 20:44 Urine Color YELLOW 01/04/19 20:44 Urine Clarity CLEAR (CLEAR) 01/04/19 20:44 Urine pH 7.0 (4.6 - 8.0) 01/04/19 20:44 Ur Specific [place] 1.010 (1.005-1.030) 01/04/19 20:44 Urine Protein NEGATIVE mg/dL (NEGATIVE) 01/04/19 20:44 Urine Glucose (UA) NEGATIVE mg/dL (NEGATIVE) 01/04/19 20:44 Urine Ketones NEGATIVE mg/dL (NEGATIVE) 01/04/19 20:44 Urine Blood NEGATIVE (NEGATIVE) 01/04/19 20:44 Urine Nitrate NEGATIVE (NEGATIVE) 01/04/19 20:44 Urine Bilirubin NEGATIVE (NEGATIVE) 01/04/19 20:44 Urine Urobilinogen 0.2 E.U./dL (0.2 - 1.0) 01/04/19 20:44 Ur Leukocyte Esterase NEGATIVE (NEGATIVE) 01/04/19 20:44 Salicylates < 25.0 mg/L (30.0-100.0) L 01/04/19 21:00 Urine Opiates Screen NEGATIVE (NEGATIVE) 01/04/19 20:44 Urine Methadone Screen NEGATIVE (NEGATIVE) 01/04/19 20:44 Acetaminophen < 10.0 ug/mL (10.0-30.0) L 01/04/19 21:00 Ur Barbiturates Screen NEGATIVE (NEGATIVE) 01/04/19 20:44 Valproic Acid 63.4 ug/mL (50.0-100.0) 01/07/19 12:07 Ur Tricyclics Screen POSITIVE (NEGATIVE) H 01/04/19 20:44 Ur Phencyclidine Scrn NEGATIVE (NEGATIVE) 01/04/19 20:44 Amphetamines Screen NEGATIVE (NEGATIVE) 01/04/19 20:44 U Methamphetamines Scrn NEGATIVE (NEGATIVE) 01/04/19 20:44 U Benzodiazepines Scrn NEGATIVE (NEGATIVE) 01/04/19 20:44 U Cocaine Metab Screen NEGATIVE (NEGATIVE) 01/04/19 20:44 U Cannabinoids Screen NEGATIVE (NEGATIVE) 01/04/19 20:44 Ethyl Alcohol < 10 mg/dL (0-10) 01/04/19 21:00 RPR NONREACTIVE (NONREACTIVE) 01/04/19 21:00 - Physical Exam Vitals and I&O: Vital Signs Temp 98.2 F 01/07/19 16:44 Pulse 89 01/07/19 17:05 Resp 18 01/07/19 16:44 BP 122/81 01/07/19 17:05 Pulse Ox 98 01/07/19 16:44 Intake & Output 01/06/19 01/07/19 01/07/19 18:59 06:59 18:59 Intake Total 900 120 Balance 900 120 Intake: Oral 900 120 Other: # Voids 3 3 # Bowel Movements 1 Active Medications: Current Medications Al Hydrox/Mg Hydrox/Simethicone (Maalox) 30 ml PO PRN PRN PRN Reason: GI DISTRESS Stop: 03/05/19 23:49 Divalproex Sodium (Depakote Dr) 250 mg PO AC [facility] Stop: 03/06/19 16:29 Last Admin: 01/07/19 15:58 Dose: 250 mg Docusate Sodium (Colace) 250 mg PO DAILY [facility] Stop: 03/06/19 08:59 Last Admin: 01/07/19 09:31 Dose: 250 mg Famotidine (Pepcid) 40 mg PO DAILY [facility] Stop: 03/06/19 08:59 Last Admin: 01/07/19 09:32 Dose: 40 mg Levetiracetam (Keppra) 500 mg PO BID [facility] Stop: 03/06/19 08:59 Last Admin: 01/07/19 17:05 Dose: 500 mg Magnesium Hydroxide (Milk Of Magnesia) 30 ml PO HS PRN PRN Reason: Constipation Stop: 03/05/19 23:53 Metoprolol Tartrate (Lopressor) 50 mg PO BID [facility] Stop: 03/06/19 08:59 Last Admin: 01/07/19 17:05 Dose: 50 mg Quetiapine Fumarate (Seroquel) 200 mg PO HS [facility]; Protocol Stop: 03/06/19 20:59 Last Admin: 01/06/19 21:12 Dose: 200 mg Risperidone (Risperdal) 2 mg PO BID [facility] Stop: 03/06/19 16:59 Last Admin: 01/07/19 17:04 Dose: 2 mg General: demented HEENT: NC/AT, PERRLA, EOMI, anicteric sclerae, throat clear Neck: Supple, No JVD, No thyromegaly, +2 carotid pulse wo bruit, No LAD Cardiovascular: RRR, Normal S1, Normal S2, without murmur Abdomen: soft, non-tender, non-distended Neurological: no change - Procedures Procedures: Procedures Procedure Code Date GROUP PSYCHOTHERAPY 77630 07/16/15 GROUP PSYCHOTHERAPY GZHZZZZ 07/16/15 INDIVID PSYCHOTHERAP NEC 94.39 09/06/13 OTHER GROUP THERAPY 94.44 05/03/14 RECREATIONAL THERAPY 93.81 08/25/12 Internal Medicine Assmt/Plan - Assessment Assessment: 1.HTN. 2.SEIZURE DISORDER. 3.DJD. 4.PSYCHOSIS. - Plan Plan: CONTINUE ON CURRENT MEDICATION AND DIET.
--- NOTE | 2019-01-08 02:56 | Progress Notes ---
DATE: 01/07/2019 SUBJECTIVE: Case was discussed with staff of the patient, reviewed records. The patient continues to be responding to internal stimuli. Continues to be unpredictable, impulsive, needing redirection. Apparently, he admits that he has not been taking his medication prior to him coming here. Continues to have poor insight in general. He is still looking disheveled, disorganized, internally preoccupied. His RPR is nonreactive. Urine drug screen positive for tricyclics. Urinalysis within normal range. Has high triglyceride, high cholesterol, high blood sugar, the rest within normal range. CBC with high monocyte and I will be checking his Depakote level to make sure he is on the right dose and we will continue outpatient group therapy, milieu therapy, adjust medication as needed. JOB# [id number]
[2019-01-08] MEDS: Multivitamin w/ Minerals Tab PO SCH (08:52)
--- NOTE | 2019-01-08 23:46 | Internal Medicine Prog Note ---
Internal Medicine Subjective - Subjective Service Date: 01/08/19 Patient seen and examined:: without staff Patient is:: awake, in bed, talking Per staff patient has:: no adverse event Internal Medicine Objective - Results Result Diagrams: 01/04/19 21:00 01/04/19 21:00 Recent Labs: Laboratory Last Values WBC 5.9 Th/cmm (4.8-10.8) 01/04/19 21:00 RBC 4.36 Mil/cmm (3.80-5.80) 01/04/19 21:00 Hgb 12.7 gm/dL (12-16) 01/04/19 21:00 Hct 38.1 % (41.0-60) L 01/04/19 21:00 MCV 87.3 fl (80-99) 01/04/19 21:00 MCH 29.1 pg (27.0-31.0) 01/04/19 21:00 MCHC Differential 33.3 pg (28.0-36.0) 01/04/19 21:00 RDW 14.6 % (11.5-20.0) 01/04/19 21:00 Plt Count 277 Th/cmm (150-400) 01/04/19 21:00 MPV 8.0 fl 01/04/19 21:00 Neutrophils % 46.1 % (40.0-80.0) 01/04/19 21:00 Lymphocytes % 35.8 % (20.0-50.0) 01/04/19 21:00 Monocytes % 13.6 % (2.0-10.0) H 01/04/19 21:00 Eosinophils % 4.0 % (0.0-5.0) 01/04/19 21:00 Basophils % 0.5 % (0.0-2.0) 01/04/19 21:00 Sodium 136 mEq/L (136-145) 01/04/19 21:00 Potassium 4.1 mEq/L (3.5-5.1) 01/04/19 21:00 Chloride 102 mEq/L (98-107) 01/04/19 21:00 Carbon Dioxide 24.8 mEq/L (21.0-31.0) 01/04/19 21:00 Anion Gap 13.3 (7.0-16.0) 01/04/19 21:00 BUN 16 mg/dL (7-25) 01/04/19 21:00 Creatinine 0.8 mg/dL (0.7-1.3) 01/04/19 21:00 Est GFR ( Amer) > 60.0 ml/min (>90) 01/04/19 21:00 Est GFR (Non-Af Amer) > 60.0 ml/min 01/04/19 21:00 BUN/Creatinine Ratio 20.0 01/04/19 21:00 Glucose 125 mg/dL (70-105) H 01/04/19 21:00 Calcium 9.5 mg/dL (8.6-10.3) 01/04/19 21:00 Total Bilirubin 0.3 mg/dL (0.3-1.0) 01/04/19 21:00 AST 13 U/L (13-39) 01/04/19 21:00 ALT 6 U/L (7-52) L 01/04/19 21:00 Alkaline Phosphatase 63 U/L (34-104) 01/04/19 21:00 Total Protein 6.9 gm/dL (6.0-8.3) 01/04/19 21:00 Albumin 4.1 gm/dL (4.2-5.5) L 01/04/19 21:00 Globulin 2.8 gm/dL 01/04/19 21:00 Albumin/Globulin Ratio 1.5 (1.0-1.8) 01/04/19 21:00 Triglycerides 168 mg/dL (<150) H 01/04/19 21:00 Cholesterol 223 mg/dL (<200) H 01/04/19 21:00 LDL Cholesterol Direct 151 mg/dL (75-193) 01/04/19 21:00 HDL Cholesterol 51 mg/dL (23-92) 01/04/19 21:00 TSH 3.63 uIU/ml (0.34-5.60) 01/04/19 21:00 Urine Source RANDOM 01/04/19 20:44 Urine Color YELLOW 01/04/19 20:44 Urine Clarity CLEAR (CLEAR) 01/04/19 20:44 Urine pH 7.0 (4.6 - 8.0) 01/04/19 20:44 Ur Specific [place] 1.010 (1.005-1.030) 01/04/19 20:44 Urine Protein NEGATIVE mg/dL (NEGATIVE) 01/04/19 20:44 Urine Glucose (UA) NEGATIVE mg/dL (NEGATIVE) 01/04/19 20:44 Urine Ketones NEGATIVE mg/dL (NEGATIVE) 01/04/19 20:44 Urine Blood NEGATIVE (NEGATIVE) 01/04/19 20:44 Urine Nitrate NEGATIVE (NEGATIVE) 01/04/19 20:44 Urine Bilirubin NEGATIVE (NEGATIVE) 01/04/19 20:44 Urine Urobilinogen 0.2 E.U./dL (0.2 - 1.0) 01/04/19 20:44 Ur Leukocyte Esterase NEGATIVE (NEGATIVE) 01/04/19 20:44 Salicylates < 25.0 mg/L (30.0-100.0) L 01/04/19 21:00 Urine Opiates Screen NEGATIVE (NEGATIVE) 01/04/19 20:44 Urine Methadone Screen NEGATIVE (NEGATIVE) 01/04/19 20:44 Acetaminophen < 10.0 ug/mL (10.0-30.0) L 01/04/19 21:00 Ur Barbiturates Screen NEGATIVE (NEGATIVE) 01/04/19 20:44 Valproic Acid 63.4 ug/mL (50.0-100.0) 01/07/19 12:07 Ur Tricyclics Screen POSITIVE (NEGATIVE) H 01/04/19 20:44 Ur Phencyclidine Scrn NEGATIVE (NEGATIVE) 01/04/19 20:44 Amphetamines Screen NEGATIVE (NEGATIVE) 01/04/19 20:44 U Methamphetamines Scrn NEGATIVE (NEGATIVE) 01/04/19 20:44 U Benzodiazepines Scrn NEGATIVE (NEGATIVE) 01/04/19 20:44 U Cocaine Metab Screen NEGATIVE (NEGATIVE) 01/04/19 20:44 U Cannabinoids Screen NEGATIVE (NEGATIVE) 01/04/19 20:44 Ethyl Alcohol < 10 mg/dL (0-10) 01/04/19 21:00 RPR NONREACTIVE (NONREACTIVE) 01/04/19 21:00 - Physical Exam Vitals and I&O: Vital Signs Temp 98.1 F 01/08/19 20:12 Pulse 88 01/08/19 20:12 Resp 20 01/08/19 20:12 BP 126/78 01/08/19 20:12 Pulse Ox 97 01/08/19 20:12 Intake & Output 01/08/19 01/08/19 01/09/19 06:59 18:59 06:59 Intake Total 240 120 Balance 240 120 Intake: Oral 240 120 Other: # Voids 1 Active Medications: Current Medications Al Hydrox/Mg Hydrox/Simethicone (Maalox) 30 ml PO PRN PRN PRN Reason: GI DISTRESS Stop: 03/05/19 23:49 Divalproex Sodium (Depakote Dr) 250 mg PO AC [facility] Stop: 03/06/19 16:29 Last Admin: 01/08/19 16:47 Dose: 250 mg Docusate Sodium (Colace) 250 mg PO DAILY [facility] Stop: 03/06/19 08:59 Last Admin: 01/08/19 08:53 Dose: 250 mg Famotidine (Pepcid) 40 mg PO DAILY [facility] Stop: 03/06/19 08:59 Last Admin: 01/08/19 08:52 Dose: 40 mg Levetiracetam (Keppra) 500 mg PO BID [facility] Stop: 03/06/19 08:59 Last Admin: 01/08/19 16:47 Dose: 500 mg Magnesium Hydroxide (Milk Of Magnesia) 30 ml PO HS PRN PRN Reason: Constipation Stop: 03/05/19 23:53 Metoprolol Tartrate (Lopressor) 50 mg PO BID [facility] Stop: 03/06/19 08:59 Last Admin: 01/08/19 16:47 Dose: 50 mg Quetiapine Fumarate (Seroquel) 200 mg PO HS [facility]; Protocol Stop: 03/06/19 20:59 Last Admin: 01/08/19 21:35 Dose: 200 mg Risperidone (Risperdal) 2 mg PO BID [facility] Stop: 03/06/19 16:59 Last Admin: 01/08/19 16:47 Dose: 2 mg General: demented HEENT: NC/AT, PERRLA, EOMI, anicteric sclerae, throat clear Neck: Supple, No JVD, No thyromegaly, +2 carotid pulse wo bruit, No LAD Cardiovascular: RRR, Normal S1, Normal S2, without murmur Abdomen: soft, non-tender, non-distended Neurological: no change - Procedures Procedures: Procedures Procedure Code Date GROUP PSYCHOTHERAPY 17096 07/16/15 GROUP PSYCHOTHERAPY GZHZZZZ 07/16/15 INDIVID PSYCHOTHERAP NEC 94.39 09/06/13 OTHER GROUP THERAPY 94.44 05/03/14 RECREATIONAL THERAPY 93.81 08/25/12 Internal Medicine Assmt/Plan - Assessment Assessment: 1.HTN. 2.SEIZURE DISORDER. 3.DJD. 4.PSYCHOSIS. - Plan Plan: CONTINUE ON CURRENT MEDICATION AND DIET. Nutritional Asmnt/Malnutr-PDOC - Dietary Evaluation Malnutrition Findings (Please click <Entered> for more info): Nutritional Asmnt/Malnutrition Start: 01/05/19 10: 04 Text: Status: Complete Freq: Protocol: Document 01/08/19 19:22 LCHENG (Rec: 01/08/19 19:26 LCHENG [id number]) Nutritional Asmnt/Malnutrition Patient General Information Nutritional Screening Moderate Risk Diagnosis paranoid schizophrenia, depression Pertinent Medical Hx/Surgical Hx HTN, DM, CVA/TIA, dyslipidemia , PUD/GERD, seizures, arthritis, dementia, paranoid schizophrenia, depression Subjective Information Pt seen resting in room at time of visit. Per EMR, PO intake 100%. Current Diet Order/ Nutrition Support NCS, chopped Pertinent Medications colace, pepcid, seroquel Pertinent Labs 4/4 Glucose 125, Alb 4.1 Nutritional Hx/Data Height 1.57 m Height (Calculated Centimeters) 157.5 Current Weight (lbs) 58.967 kg Weight (Calculated Kilograms) 59.0 Weight (Calculated Grams) 03617.0 [place] Body Weight 110 Body Mass Index (BMI) 23.8 Weight Status Approriate GI Symptoms GI Symptoms None Last BM 4/6 Difficult in: None Skin Integrity/Comment: intact Current %PO Good (75-100%) Estimated Nutritional Goals BEE in Kcals: Using Current wt Calories/Kcals/Kg 25-30 Kcals Calculated 2225-8066 Protein: Using Current wt Protein g/k Protein Calculated 59 Fluid: ml 1475-1770ml (1ml/kcal) Nutritional Problem No current Nutrition Prob Problem n/A Malnutrition Alert Is there a minimum of two criteria No selected? Query Text:Check all the applicable criteria. A minimum of two criteria are recommended for diagnosis of either severe or non-severe malnutrition. Malnutrition Related to Morbid Obesity Malnutrition related to morbid obesity No Intervention/Recommendation Comments 1. Continue with NCS chopped diet as ordered. 2. Monitor PO intake, wt, labs and skin integrity 3. F/U as low risk in 7 days Expected Outcomes/Goals Expected Outcomes/Goals 1. PO intake to meet at least 75% of nutritional needs. 2. Wt stability, skin to remain intact, labs to approach WNL.
--- NOTE | 2019-01-09 00:15 | Progress Notes ---
DATE: 01/08/2019 SUBJECTIVE: Case was discussed with staff of the patient, reviewed records. The patient continues to be internally preoccupied. Unable to make safe plan for self-care, easily agitated, unpredictable, impulsive, needing redirection, responding to internal stimuli, looking disheveled, disorganized. He is compliant with the medication with no side effects, no sedation, no nausea, and no extrapyramidal symptoms. His depakote level level is pending. We will continue to work with the patient in group therapy, milieu therapy, and adjust the medication as needed. JOB# [id number] FABIOLA
[2019-01-09] MEDS: Multivitamin w/ Minerals Tab PO SCH (08:51)
--- NOTE | 2019-01-09 20:57 | Internal Medicine Prog Note ---
Internal Medicine Subjective - Subjective Service Date: 01/09/19 Patient seen and examined:: with staff Patient is:: awake, in bed, talking Per staff patient has:: no adverse event Internal Medicine Objective - Results Result Diagrams: 01/04/19 21:00 01/04/19 21:00 Recent Labs: Laboratory Last Values WBC 5.9 Th/cmm (4.8-10.8) 01/04/19 21:00 RBC 4.36 Mil/cmm (3.80-5.80) 01/04/19 21:00 Hgb 12.7 gm/dL (12-16) 01/04/19 21:00 Hct 38.1 % (41.0-60) L 01/04/19 21:00 MCV 87.3 fl (80-99) 01/04/19 21:00 MCH 29.1 pg (27.0-31.0) 01/04/19 21:00 MCHC Differential 33.3 pg (28.0-36.0) 01/04/19 21:00 RDW 14.6 % (11.5-20.0) 01/04/19 21:00 Plt Count 277 Th/cmm (150-400) 01/04/19 21:00 MPV 8.0 fl 01/04/19 21:00 Neutrophils % 46.1 % (40.0-80.0) 01/04/19 21:00 Lymphocytes % 35.8 % (20.0-50.0) 01/04/19 21:00 Monocytes % 13.6 % (2.0-10.0) H 01/04/19 21:00 Eosinophils % 4.0 % (0.0-5.0) 01/04/19 21:00 Basophils % 0.5 % (0.0-2.0) 01/04/19 21:00 Sodium 136 mEq/L (136-145) 01/04/19 21:00 Potassium 4.1 mEq/L (3.5-5.1) 01/04/19 21:00 Chloride 102 mEq/L (98-107) 01/04/19 21:00 Carbon Dioxide 24.8 mEq/L (21.0-31.0) 01/04/19 21:00 Anion Gap 13.3 (7.0-16.0) 01/04/19 21:00 BUN 16 mg/dL (7-25) 01/04/19 21:00 Creatinine 0.8 mg/dL (0.7-1.3) 01/04/19 21:00 Est GFR ( Amer) > 60.0 ml/min (>90) 01/04/19 21:00 Est GFR (Non-Af Amer) > 60.0 ml/min 01/04/19 21:00 BUN/Creatinine Ratio 20.0 01/04/19 21:00 Glucose 125 mg/dL (70-105) H 01/04/19 21:00 Calcium 9.5 mg/dL (8.6-10.3) 01/04/19 21:00 Total Bilirubin 0.3 mg/dL (0.3-1.0) 01/04/19 21:00 AST 13 U/L (13-39) 01/04/19 21:00 ALT 6 U/L (7-52) L 01/04/19 21:00 Alkaline Phosphatase 63 U/L (34-104) 01/04/19 21:00 Total Protein 6.9 gm/dL (6.0-8.3) 01/04/19 21:00 Albumin 4.1 gm/dL (4.2-5.5) L 01/04/19 21:00 Globulin 2.8 gm/dL 01/04/19 21:00 Albumin/Globulin Ratio 1.5 (1.0-1.8) 01/04/19 21:00 Triglycerides 168 mg/dL (<150) H 01/04/19 21:00 Cholesterol 223 mg/dL (<200) H 01/04/19 21:00 LDL Cholesterol Direct 151 mg/dL (75-193) 01/04/19 21:00 HDL Cholesterol 51 mg/dL (23-92) 01/04/19 21:00 TSH 3.63 uIU/ml (0.34-5.60) 01/04/19 21:00 Urine Source RANDOM 01/04/19 20:44 Urine Color YELLOW 01/04/19 20:44 Urine Clarity CLEAR (CLEAR) 01/04/19 20:44 Urine pH 7.0 (4.6 - 8.0) 01/04/19 20:44 Ur Specific [place] 1.010 (1.005-1.030) 01/04/19 20:44 Urine Protein NEGATIVE mg/dL (NEGATIVE) 01/04/19 20:44 Urine Glucose (UA) NEGATIVE mg/dL (NEGATIVE) 01/04/19 20:44 Urine Ketones NEGATIVE mg/dL (NEGATIVE) 01/04/19 20:44 Urine Blood NEGATIVE (NEGATIVE) 01/04/19 20:44 Urine Nitrate NEGATIVE (NEGATIVE) 01/04/19 20:44 Urine Bilirubin NEGATIVE (NEGATIVE) 01/04/19 20:44 Urine Urobilinogen 0.2 E.U./dL (0.2 - 1.0) 01/04/19 20:44 Ur Leukocyte Esterase NEGATIVE (NEGATIVE) 01/04/19 20:44 Salicylates < 25.0 mg/L (30.0-100.0) L 01/04/19 21:00 Urine Opiates Screen NEGATIVE (NEGATIVE) 01/04/19 20:44 Urine Methadone Screen NEGATIVE (NEGATIVE) 01/04/19 20:44 Acetaminophen < 10.0 ug/mL (10.0-30.0) L 01/04/19 21:00 Ur Barbiturates Screen NEGATIVE (NEGATIVE) 01/04/19 20:44 Valproic Acid 63.4 ug/mL (50.0-100.0) 01/07/19 12:07 Ur Tricyclics Screen POSITIVE (NEGATIVE) H 01/04/19 20:44 Ur Phencyclidine Scrn NEGATIVE (NEGATIVE) 01/04/19 20:44 Amphetamines Screen NEGATIVE (NEGATIVE) 01/04/19 20:44 U Methamphetamines Scrn NEGATIVE (NEGATIVE) 01/04/19 20:44 U Benzodiazepines Scrn NEGATIVE (NEGATIVE) 01/04/19 20:44 U Cocaine Metab Screen NEGATIVE (NEGATIVE) 01/04/19 20:44 U Cannabinoids Screen NEGATIVE (NEGATIVE) 01/04/19 20:44 Ethyl Alcohol < 10 mg/dL (0-10) 01/04/19 21:00 RPR NONREACTIVE (NONREACTIVE) 01/04/19 21:00 - Physical Exam Vitals and I&O: Vital Signs Temp 97.9 F 01/09/19 20:16 Pulse 92 01/09/19 20:16 Resp 20 01/09/19 20:16 BP 107/78 01/09/19 20:16 Pulse Ox 98 01/09/19 20:16 Intake & Output 01/09/19 01/09/19 01/10/19 06:59 18:59 06:59 Intake Total 120 900 120 Balance 120 900 120 Intake: Oral 120 900 120 Other: # Voids 2 3 # Bowel Movements 0 1 Active Medications: Current Medications Al Hydrox/Mg Hydrox/Simethicone (Maalox) 30 ml PO PRN PRN PRN Reason: GI DISTRESS Stop: 03/05/19 23:49 Divalproex Sodium (Depakote Dr) 250 mg PO AC [facility] Stop: 03/06/19 16:29 Last Admin: 01/09/19 17:30 Dose: 250 mg Docusate Sodium (Colace) 250 mg PO DAILY [facility] Stop: 03/06/19 08:59 Last Admin: 01/09/19 08:50 Dose: Not Given Famotidine (Pepcid) 40 mg PO DAILY [facility] Stop: 03/06/19 08:59 Last Admin: 01/09/19 08:48 Dose: 40 mg Levetiracetam (Keppra) 500 mg PO BID [facility] Stop: 03/06/19 08:59 Last Admin: 01/09/19 17:30 Dose: 500 mg Magnesium Hydroxide (Milk Of Magnesia) 30 ml PO HS PRN PRN Reason: Constipation Stop: 03/05/19 23:53 Metoprolol Tartrate (Lopressor) 50 mg PO BID [facility] Stop: 03/06/19 08:59 Last Admin: 01/09/19 17:31 Dose: 50 mg Quetiapine Fumarate (Seroquel) 200 mg PO HS [facility]; Protocol Stop: 03/06/19 20:59 Last Admin: 01/08/19 21:35 Dose: 200 mg Risperidone (Risperdal) 3 mg PO BID [facility] Stop: 03/10/19 16:59 Last Admin: 01/09/19 17:30 Dose: 3 mg General: demented HEENT: NC/AT, PERRLA, EOMI, anicteric sclerae, throat clear Neck: Supple, No JVD, No thyromegaly, +2 carotid pulse wo bruit, No LAD Cardiovascular: RRR, Normal S1, Normal S2, without murmur Abdomen: soft, non-tender, non-distended Neurological: no change - Procedures Procedures: Procedures Procedure Code Date GROUP PSYCHOTHERAPY 76320 07/16/15 GROUP PSYCHOTHERAPY GZHZZZZ 07/16/15 INDIVID PSYCHOTHERAP NEC 94.39 09/06/13 OTHER GROUP THERAPY 94.44 05/03/14 RECREATIONAL THERAPY 93.81 08/25/12 Internal Medicine Assmt/Plan - Assessment Assessment: 1.HTN. 2.SEIZURE DISORDER. 3.DJD. 4.PSYCHOSIS. - Plan Plan: CONTINUE ON CURRENT MEDICATION AND DIET. Nutritional Asmnt/Malnutr-PDOC - Dietary Evaluation Malnutrition Findings (Please click <Entered> for more info): Nutritional Asmnt/Malnutrition Start: 01/05/19 10: 04 Text: Status: Complete Freq: Protocol: Document 01/08/19 19:22 LCHENG (Rec: 01/08/19 19:26 LCHENG [id number]) Nutritional Asmnt/Malnutrition Patient General Information Nutritional Screening Moderate Risk Diagnosis paranoid schizophrenia, depression Pertinent Medical Hx/Surgical Hx HTN, DM, CVA/TIA, dyslipidemia , PUD/GERD, seizures, arthritis, dementia, paranoid schizophrenia, depression Subjective Information Pt seen resting in room at time of visit. Per EMR, PO intake 100%. Current Diet Order/ Nutrition Support NCS, chopped Pertinent Medications colace, pepcid, seroquel Pertinent Labs 4/4 Glucose 125, Alb 4.1 Nutritional Hx/Data Height 1.57 m Height (Calculated Centimeters) 157.5 Current Weight (lbs) 58.967 kg Weight (Calculated Kilograms) 59.0 Weight (Calculated Grams) 23579.0 [place] Body Weight 110 Body Mass Index (BMI) 23.8 Weight Status Approriate GI Symptoms GI Symptoms None Last BM 4/6 Difficult in: None Skin Integrity/Comment: intact Current %PO Good (75-100%) Estimated Nutritional Goals BEE in Kcals: Using Current wt Calories/Kcals/Kg 25-30 Kcals Calculated 8644-0792 Protein: Using Current wt Protein g/k Protein Calculated 59 Fluid: ml 1475-1770ml (1ml/kcal) Nutritional Problem No current Nutrition Prob Problem n/A Malnutrition Alert Is there a minimum of two criteria No selected? Query Text:Check all the applicable criteria. A minimum of two criteria are recommended for diagnosis of either severe or non-severe malnutrition. Malnutrition Related to Morbid Obesity Malnutrition related to morbid obesity No Intervention/Recommendation Comments 1. Continue with NCS chopped diet as ordered. 2. Monitor PO intake, wt, labs and skin integrity 3. F/U as low risk in 7 days Expected Outcomes/Goals Expected Outcomes/Goals 1. PO intake to meet at least 75% of nutritional needs. 2. Wt stability, skin to remain intact, labs to approach WNL.
--- NOTE | 2019-01-10 00:22 | Progress Notes ---
DATE: 01/09/2019 Case was discussed with staff of the patient and reviewed records. The patient continues to be unpredictable, impulsive, needing redirection, responding to internal stimuli, unable to make safe plan for his self-care, gets paranoid at times. He is sleeping better and eating better. No side effects to the medication, no sedation, no nausea, and no extrapyramidal symptoms. We will continue to work with the patient in group therapy, milieu therapy, and adjust the medication as needed. I would like to add Depakote, level is 63.4, which is within acceptable therapeutic range. He also indicates that he has been compliant with medications. JOB# [id number]
[2019-01-10] MEDS: Multivitamin w/ Minerals Tab PO SCH (08:52)
--- NOTE | 2019-01-10 20:27 | Internal Medicine Prog Note ---
Internal Medicine Subjective - Subjective Service Date: 01/10/19 Patient seen and examined:: with staff Patient is:: awake, in bed, talking Per staff patient has:: no adverse event Internal Medicine Objective - Results Result Diagrams: 01/04/19 21:00 01/04/19 21:00 Recent Labs: Laboratory Last Values WBC 5.9 Th/cmm (4.8-10.8) 01/04/19 21:00 RBC 4.36 Mil/cmm (3.80-5.80) 01/04/19 21:00 Hgb 12.7 gm/dL (12-16) 01/04/19 21:00 Hct 38.1 % (41.0-60) L 01/04/19 21:00 MCV 87.3 fl (80-99) 01/04/19 21:00 MCH 29.1 pg (27.0-31.0) 01/04/19 21:00 MCHC Differential 33.3 pg (28.0-36.0) 01/04/19 21:00 RDW 14.6 % (11.5-20.0) 01/04/19 21:00 Plt Count 277 Th/cmm (150-400) 01/04/19 21:00 MPV 8.0 fl 01/04/19 21:00 Neutrophils % 46.1 % (40.0-80.0) 01/04/19 21:00 Lymphocytes % 35.8 % (20.0-50.0) 01/04/19 21:00 Monocytes % 13.6 % (2.0-10.0) H 01/04/19 21:00 Eosinophils % 4.0 % (0.0-5.0) 01/04/19 21:00 Basophils % 0.5 % (0.0-2.0) 01/04/19 21:00 Sodium 136 mEq/L (136-145) 01/04/19 21:00 Potassium 4.1 mEq/L (3.5-5.1) 01/04/19 21:00 Chloride 102 mEq/L (98-107) 01/04/19 21:00 Carbon Dioxide 24.8 mEq/L (21.0-31.0) 01/04/19 21:00 Anion Gap 13.3 (7.0-16.0) 01/04/19 21:00 BUN 16 mg/dL (7-25) 01/04/19 21:00 Creatinine 0.8 mg/dL (0.7-1.3) 01/04/19 21:00 Est GFR ( Amer) > 60.0 ml/min (>90) 01/04/19 21:00 Est GFR (Non-Af Amer) > 60.0 ml/min 01/04/19 21:00 BUN/Creatinine Ratio 20.0 01/04/19 21:00 Glucose 125 mg/dL (70-105) H 01/04/19 21:00 Calcium 9.5 mg/dL (8.6-10.3) 01/04/19 21:00 Total Bilirubin 0.3 mg/dL (0.3-1.0) 01/04/19 21:00 AST 13 U/L (13-39) 01/04/19 21:00 ALT 6 U/L (7-52) L 01/04/19 21:00 Alkaline Phosphatase 63 U/L (34-104) 01/04/19 21:00 Total Protein 6.9 gm/dL (6.0-8.3) 01/04/19 21:00 Albumin 4.1 gm/dL (4.2-5.5) L 01/04/19 21:00 Globulin 2.8 gm/dL 01/04/19 21:00 Albumin/Globulin Ratio 1.5 (1.0-1.8) 01/04/19 21:00 Triglycerides 168 mg/dL (<150) H 01/04/19 21:00 Cholesterol 223 mg/dL (<200) H 01/04/19 21:00 LDL Cholesterol Direct 151 mg/dL (75-193) 01/04/19 21:00 HDL Cholesterol 51 mg/dL (23-92) 01/04/19 21:00 TSH 3.63 uIU/ml (0.34-5.60) 01/04/19 21:00 Urine Source RANDOM 01/04/19 20:44 Urine Color YELLOW 01/04/19 20:44 Urine Clarity CLEAR (CLEAR) 01/04/19 20:44 Urine pH 7.0 (4.6 - 8.0) 01/04/19 20:44 Ur Specific [place] 1.010 (1.005-1.030) 01/04/19 20:44 Urine Protein NEGATIVE mg/dL (NEGATIVE) 01/04/19 20:44 Urine Glucose (UA) NEGATIVE mg/dL (NEGATIVE) 01/04/19 20:44 Urine Ketones NEGATIVE mg/dL (NEGATIVE) 01/04/19 20:44 Urine Blood NEGATIVE (NEGATIVE) 01/04/19 20:44 Urine Nitrate NEGATIVE (NEGATIVE) 01/04/19 20:44 Urine Bilirubin NEGATIVE (NEGATIVE) 01/04/19 20:44 Urine Urobilinogen 0.2 E.U./dL (0.2 - 1.0) 01/04/19 20:44 Ur Leukocyte Esterase NEGATIVE (NEGATIVE) 01/04/19 20:44 Salicylates < 25.0 mg/L (30.0-100.0) L 01/04/19 21:00 Urine Opiates Screen NEGATIVE (NEGATIVE) 01/04/19 20:44 Urine Methadone Screen NEGATIVE (NEGATIVE) 01/04/19 20:44 Acetaminophen < 10.0 ug/mL (10.0-30.0) L 01/04/19 21:00 Ur Barbiturates Screen NEGATIVE (NEGATIVE) 01/04/19 20:44 Valproic Acid 63.4 ug/mL (50.0-100.0) 01/07/19 12:07 Ur Tricyclics Screen POSITIVE (NEGATIVE) H 01/04/19 20:44 Ur Phencyclidine Scrn NEGATIVE (NEGATIVE) 01/04/19 20:44 Amphetamines Screen NEGATIVE (NEGATIVE) 01/04/19 20:44 U Methamphetamines Scrn NEGATIVE (NEGATIVE) 01/04/19 20:44 U Benzodiazepines Scrn NEGATIVE (NEGATIVE) 01/04/19 20:44 U Cocaine Metab Screen NEGATIVE (NEGATIVE) 01/04/19 20:44 U Cannabinoids Screen NEGATIVE (NEGATIVE) 01/04/19 20:44 Ethyl Alcohol < 10 mg/dL (0-10) 01/04/19 21:00 RPR NONREACTIVE (NONREACTIVE) 01/04/19 21:00 - Physical Exam Vitals and I&O: Vital Signs Temp 97.6 F 01/10/19 14:00 Pulse 130 01/10/19 16:56 Resp 18 01/10/19 14:00 BP 145/85 01/10/19 16:56 Pulse Ox 98 01/10/19 14:00 Intake & Output 01/10/19 01/10/19 01/11/19 06:59 18:59 06:59 Intake Total 120 1200 Balance 120 1200 Intake: Oral 120 1200 Other: # Voids 2 # Bowel Movements 0 1 Active Medications: Current Medications Al Hydrox/Mg Hydrox/Simethicone (Maalox) 30 ml PO PRN PRN PRN Reason: GI DISTRESS Stop: 03/05/19 23:49 Divalproex Sodium (Depakote Dr) 250 mg PO AC [facility] Stop: 03/06/19 16:29 Last Admin: 01/10/19 15:30 Dose: 250 mg Docusate Sodium (Colace) 250 mg PO DAILY [facility] Stop: 03/06/19 08:59 Last Admin: 01/10/19 08:51 Dose: 250 mg Famotidine (Pepcid) 40 mg PO DAILY [facility] Stop: 03/06/19 08:59 Last Admin: 01/10/19 08:51 Dose: 40 mg Levetiracetam (Keppra) 500 mg PO BID [facility] Stop: 03/06/19 08:59 Last Admin: 01/10/19 16:49 Dose: 500 mg Magnesium Hydroxide (Milk Of Magnesia) 30 ml PO HS PRN PRN Reason: Constipation Stop: 03/05/19 23:53 Metoprolol Tartrate (Lopressor) 50 mg PO BID [facility] Stop: 03/06/19 08:59 Last Admin: 01/10/19 16:56 Dose: 50 mg Quetiapine Fumarate (Seroquel) 200 mg PO HS [facility]; Protocol Stop: 03/06/19 20:59 Last Admin: 01/09/19 21:23 Dose: 200 mg Risperidone (Risperdal) 3 mg PO BID [facility] Stop: 03/10/19 16:59 Last Admin: 01/10/19 16:49 Dose: 3 mg General: demented HEENT: NC/AT, PERRLA, EOMI, anicteric sclerae, throat clear Neck: Supple, No JVD, No thyromegaly, +2 carotid pulse wo bruit, No LAD Cardiovascular: RRR, Normal S1, Normal S2, without murmur Abdomen: soft, non-tender, non-distended Neurological: no change - Procedures Procedures: Procedures Procedure Code Date GROUP PSYCHOTHERAPY 79912 07/16/15 GROUP PSYCHOTHERAPY GZHZZZZ 07/16/15 INDIVID PSYCHOTHERAP NEC 94.39 09/06/13 OTHER GROUP THERAPY 94.44 05/03/14 RECREATIONAL THERAPY 93.81 08/25/12 Internal Medicine Assmt/Plan - Assessment Assessment: 1.HTN. 2.SEIZURE DISORDER. 3.DJD. 4.PSYCHOSIS. - Plan Plan: CONTINUE ON CURRENT MEDICATION AND DIET. Nutritional Asmnt/Malnutr-PDOC - Dietary Evaluation Malnutrition Findings (Please click <Entered> for more info): Nutritional Asmnt/Malnutrition Start: 01/05/19 10: 04 Text: Status: Complete Freq: Protocol: Document 01/08/19 19:22 LCHENG (Rec: 01/08/19 19:26 LCHENG [id number]) Nutritional Asmnt/Malnutrition Patient General Information Nutritional Screening Moderate Risk Diagnosis paranoid schizophrenia, depression Pertinent Medical Hx/Surgical Hx HTN, DM, CVA/TIA, dyslipidemia , PUD/GERD, seizures, arthritis, dementia, paranoid schizophrenia, depression Subjective Information Pt seen resting in room at time of visit. Per EMR, PO intake 100%. Current Diet Order/ Nutrition Support NCS, chopped Pertinent Medications colace, pepcid, seroquel Pertinent Labs 4/4 Glucose 125, Alb 4.1 Nutritional Hx/Data Height 1.57 m Height (Calculated Centimeters) 157.5 Current Weight (lbs) 58.967 kg Weight (Calculated Kilograms) 59.0 Weight (Calculated Grams) 16084.0 [place] Body Weight 110 Body Mass Index (BMI) 23.8 Weight Status Approriate GI Symptoms GI Symptoms None Last BM 4/6 Difficult in: None Skin Integrity/Comment: intact Current %PO Good (75-100%) Estimated Nutritional Goals BEE in Kcals: Using Current wt Calories/Kcals/Kg 25-30 Kcals Calculated 5484-1433 Protein: Using Current wt Protein g/k Protein Calculated 59 Fluid: ml 1475-1770ml (1ml/kcal) Nutritional Problem No current Nutrition Prob Problem n/A Malnutrition Alert Is there a minimum of two criteria No selected? Query Text:Check all the applicable criteria. A minimum of two criteria are recommended for diagnosis of either severe or non-severe malnutrition. Malnutrition Related to Morbid Obesity Malnutrition related to morbid obesity No Intervention/Recommendation Comments 1. Continue with NCS chopped diet as ordered. 2. Monitor PO intake, wt, labs and skin integrity 3. F/U as low risk in 7 days Expected Outcomes/Goals Expected Outcomes/Goals 1. PO intake to meet at least 75% of nutritional needs. 2. Wt stability, skin to remain intact, labs to approach WNL.
--- NOTE | 2019-01-11 00:21 | Progress Notes ---
DATE: 01/10/2019 Case was discussed with staff of the patient, reviewed records. he is hearing voices, unpredictable, impulsive, needing redirection. I did increase his Risperdal dose yesterday to 3 mg twice a day. Continues to be unable to make safe plan for self-care and internally preoccupied, looking disheveled. His Depakote level is within acceptable therapeutic range. We will continue to work with the patient in group therapy, milieu therapy, and adjust medication as needed. JOB# [id number] MTDD
[2019-01-11] MEDS: Multivitamin w/ Minerals Tab PO SCH (08:57)
--- NOTE | 2019-01-11 13:16 | Progress Notes ---
DATE: 01/11/2019 Case was discussed with staff of the patient, reviewed records. The patient continues to be internally preoccupied, stays to himself, unpredictable and impulsive, needing redirection. Sleeping better, eating better. No side effects with the medication, no sedation, no nausea and no extrapyramidal symptoms. Working on his medication, no side effects with the medication, no sedation or nausea, no extrapyramidal symptoms. He tolerated the increasing Risperdal 50 mg twice a day. Also, her Seroquel. The patient was ____ therapy, and adjust medications as needed. JOB# [id number]
--- NOTE | 2019-01-11 18:50 | Internal Medicine Prog Note ---
Internal Medicine Subjective - Subjective Patient is:: awake, in bed, talking Per staff patient has:: no adverse event Internal Medicine Objective - Results Result Diagrams: 01/04/19 21:00 01/04/19 21:00 Recent Labs: Laboratory Last Values WBC 5.9 Th/cmm (4.8-10.8) 01/04/19 21:00 RBC 4.36 Mil/cmm (3.80-5.80) 01/04/19 21:00 Hgb 12.7 gm/dL (12-16) 01/04/19 21:00 Hct 38.1 % (41.0-60) L 01/04/19 21:00 MCV 87.3 fl (80-99) 01/04/19 21:00 MCH 29.1 pg (27.0-31.0) 01/04/19 21:00 MCHC Differential 33.3 pg (28.0-36.0) 01/04/19 21:00 RDW 14.6 % (11.5-20.0) 01/04/19 21:00 Plt Count 277 Th/cmm (150-400) 01/04/19 21:00 MPV 8.0 fl 01/04/19 21:00 Neutrophils % 46.1 % (40.0-80.0) 01/04/19 21:00 Lymphocytes % 35.8 % (20.0-50.0) 01/04/19 21:00 Monocytes % 13.6 % (2.0-10.0) H 01/04/19 21:00 Eosinophils % 4.0 % (0.0-5.0) 01/04/19 21:00 Basophils % 0.5 % (0.0-2.0) 01/04/19 21:00 Sodium 136 mEq/L (136-145) 01/04/19 21:00 Potassium 4.1 mEq/L (3.5-5.1) 01/04/19 21:00 Chloride 102 mEq/L (98-107) 01/04/19 21:00 Carbon Dioxide 24.8 mEq/L (21.0-31.0) 01/04/19 21:00 Anion Gap 13.3 (7.0-16.0) 01/04/19 21:00 BUN 16 mg/dL (7-25) 01/04/19 21:00 Creatinine 0.8 mg/dL (0.7-1.3) 01/04/19 21:00 Est GFR ( Amer) > 60.0 ml/min (>90) 01/04/19 21:00 Est GFR (Non-Af Amer) > 60.0 ml/min 01/04/19 21:00 BUN/Creatinine Ratio 20.0 01/04/19 21:00 Glucose 125 mg/dL (70-105) H 01/04/19 21:00 Calcium 9.5 mg/dL (8.6-10.3) 01/04/19 21:00 Total Bilirubin 0.3 mg/dL (0.3-1.0) 01/04/19 21:00 AST 13 U/L (13-39) 01/04/19 21:00 ALT 6 U/L (7-52) L 01/04/19 21:00 Alkaline Phosphatase 63 U/L (34-104) 01/04/19 21:00 Total Protein 6.9 gm/dL (6.0-8.3) 01/04/19 21:00 Albumin 4.1 gm/dL (4.2-5.5) L 01/04/19 21:00 Globulin 2.8 gm/dL 01/04/19 21:00 Albumin/Globulin Ratio 1.5 (1.0-1.8) 01/04/19 21:00 Triglycerides 168 mg/dL (<150) H 01/04/19 21:00 Cholesterol 223 mg/dL (<200) H 01/04/19 21:00 LDL Cholesterol Direct 151 mg/dL (75-193) 01/04/19 21:00 HDL Cholesterol 51 mg/dL (23-92) 01/04/19 21:00 TSH 3.63 uIU/ml (0.34-5.60) 01/04/19 21:00 Urine Source RANDOM 01/04/19 20:44 Urine Color YELLOW 01/04/19 20:44 Urine Clarity CLEAR (CLEAR) 01/04/19 20:44 Urine pH 7.0 (4.6 - 8.0) 01/04/19 20:44 Ur Specific [place] 1.010 (1.005-1.030) 01/04/19 20:44 Urine Protein NEGATIVE mg/dL (NEGATIVE) 01/04/19 20:44 Urine Glucose (UA) NEGATIVE mg/dL (NEGATIVE) 01/04/19 20:44 Urine Ketones NEGATIVE mg/dL (NEGATIVE) 01/04/19 20:44 Urine Blood NEGATIVE (NEGATIVE) 01/04/19 20:44 Urine Nitrate NEGATIVE (NEGATIVE) 01/04/19 20:44 Urine Bilirubin NEGATIVE (NEGATIVE) 01/04/19 20:44 Urine Urobilinogen 0.2 E.U./dL (0.2 - 1.0) 01/04/19 20:44 Ur Leukocyte Esterase NEGATIVE (NEGATIVE) 01/04/19 20:44 Salicylates < 25.0 mg/L (30.0-100.0) L 01/04/19 21:00 Urine Opiates Screen NEGATIVE (NEGATIVE) 01/04/19 20:44 Urine Methadone Screen NEGATIVE (NEGATIVE) 01/04/19 20:44 Acetaminophen < 10.0 ug/mL (10.0-30.0) L 01/04/19 21:00 Ur Barbiturates Screen NEGATIVE (NEGATIVE) 01/04/19 20:44 Valproic Acid 63.4 ug/mL (50.0-100.0) 01/07/19 12:07 Ur Tricyclics Screen POSITIVE (NEGATIVE) H 01/04/19 20:44 Ur Phencyclidine Scrn NEGATIVE (NEGATIVE) 01/04/19 20:44 Amphetamines Screen NEGATIVE (NEGATIVE) 01/04/19 20:44 U Methamphetamines Scrn NEGATIVE (NEGATIVE) 01/04/19 20:44 U Benzodiazepines Scrn NEGATIVE (NEGATIVE) 01/04/19 20:44 U Cocaine Metab Screen NEGATIVE (NEGATIVE) 01/04/19 20:44 U Cannabinoids Screen NEGATIVE (NEGATIVE) 01/04/19 20:44 Ethyl Alcohol < 10 mg/dL (0-10) 01/04/19 21:00 RPR NONREACTIVE (NONREACTIVE) 01/04/19 21:00 - Physical Exam Vitals and I&O: Vital Signs Temp 98 F 01/11/19 14:00 Pulse 100 01/11/19 16:32 Resp 17 01/11/19 14:00 BP 134/87 01/11/19 16:32 Pulse Ox 95 01/11/19 14:00 Intake & Output 01/10/19 01/11/19 01/11/19 18:59 06:59 18:59 Intake Total 2721 438 0701 Balance 6888 522 7407 Intake: Oral 4310 642 5815 Other: # Voids 3 4 # Bowel Movements 1 1 Active Medications: Current Medications Al Hydrox/Mg Hydrox/Simethicone (Maalox) 30 ml PO PRN PRN PRN Reason: GI DISTRESS Stop: 03/05/19 23:49 Divalproex Sodium (Depakote Dr) 250 mg PO AC [facility] Stop: 03/06/19 16:29 Last Admin: 01/11/19 15:30 Dose: 250 mg Docusate Sodium (Colace) 250 mg PO DAILY [facility] Stop: 03/06/19 08:59 Last Admin: 01/11/19 08:56 Dose: 250 mg Famotidine (Pepcid) 40 mg PO DAILY [facility] Stop: 03/06/19 08:59 Last Admin: 01/11/19 08:56 Dose: 40 mg Levetiracetam (Keppra) 500 mg PO BID [facility] Stop: 03/06/19 08:59 Last Admin: 01/11/19 16:30 Dose: 500 mg Magnesium Hydroxide (Milk Of Magnesia) 30 ml PO HS PRN PRN Reason: Constipation Stop: 03/05/19 23:53 Metoprolol Tartrate (Lopressor) 50 mg PO BID [facility] Stop: 03/06/19 08:59 Last Admin: 01/11/19 16:32 Dose: 50 mg Quetiapine Fumarate (Seroquel) 200 mg PO HS [facility]; Protocol Stop: 03/06/19 20:59 Last Admin: 01/10/19 21:39 Dose: 200 mg Risperidone (Risperdal) 3 mg PO BID [facility] Stop: 03/10/19 16:59 Last Admin: 01/11/19 16:30 Dose: 3 mg General: demented HEENT: NC/AT, PERRLA, EOMI, anicteric sclerae, throat clear Neck: Supple, No JVD, No thyromegaly, +2 carotid pulse wo bruit, No LAD Cardiovascular: RRR, Normal S1, Normal S2, without murmur Abdomen: soft, non-tender, non-distended Neurological: no change - Procedures Procedures: Procedures Procedure Code Date GROUP PSYCHOTHERAPY 70319 07/16/15 GROUP PSYCHOTHERAPY GZHZZZZ 07/16/15 [facility] PSYCHOTHERAP NEC 94.39 09/06/13 OTHER GROUP THERAPY 94.44 05/03/14 RECREATIONAL THERAPY 93.81 08/25/12 Internal Medicine Assmt/Plan - Assessment Assessment: 1.HTN. 2.SEIZURE DISORDER. 3.DJD. 4.PSYCHOSIS. - Plan Plan: CONTINUE ON CURRENT MEDICATION AND DIET. Nutritional Asmnt/Malnutr-PDOC - Dietary Evaluation Malnutrition Findings (Please click <Entered> for more info): Nutritional Asmnt/Malnutrition Start: 01/05/19 10: 04 Text: Status: Complete Freq: Protocol: Document 01/08/19 19:22 LCHENG (Rec: 01/08/19 19:26 LCHENG [id number]) Nutritional Asmnt/Malnutrition Patient General Information Nutritional Screening Moderate Risk Diagnosis paranoid schizophrenia, depression Pertinent Medical Hx/Surgical Hx HTN, DM, CVA/TIA, dyslipidemia , PUD/GERD, seizures, arthritis, dementia, paranoid schizophrenia, depression Subjective Information Pt seen resting in room at time of visit. Per EMR, PO intake 100%. Current Diet Order/ Nutrition Support NCS, chopped Pertinent Medications colace, pepcid, seroquel Pertinent Labs 4/4 Glucose 125, Alb 4.1 Nutritional Hx/Data Height 1.57 m Height (Calculated Centimeters) 157.5 Current Weight (lbs) 58.967 kg Weight (Calculated Kilograms) 59.0 Weight (Calculated Grams) 94141.0 [place] Body Weight 110 Body Mass Index (BMI) 23.8 Weight Status Approriate GI Symptoms GI Symptoms None Last BM 4/6 Difficult in: None Skin Integrity/Comment: intact Current %PO Good (75-100%) Estimated Nutritional Goals BEE in Kcals: Using Current wt Calories/Kcals/Kg 25-30 Kcals Calculated 3946-1010 Protein: Using Current wt Protein g/k Protein Calculated 59 Fluid: ml 1475-1770ml (1ml/kcal) Nutritional Problem No current Nutrition Prob Problem n/A Malnutrition Alert Is there a minimum of two criteria No selected? Query Text:Check all the applicable criteria. A minimum of two criteria are recommended for diagnosis of either severe or non-severe malnutrition. Malnutrition Related to Morbid Obesity Malnutrition related to morbid obesity No Intervention/Recommendation Comments 1. Continue with NCS chopped diet as ordered. 2. Monitor PO intake, wt, labs and skin integrity 3. F/U as low risk in 7 days Expected Outcomes/Goals Expected Outcomes/Goals 1. PO intake to meet at least 75% of nutritional needs. 2. Wt stability, skin to remain intact, labs to approach WNL.
[2019-01-12] MEDS: Multivitamin w/ Minerals Tab PO SCH (08:25)
--- NOTE | 2019-01-12 20:46 | Internal Medicine Prog Note ---
Internal Medicine Subjective - Subjective Service Date: 01/12/19 Patient seen and examined:: with staff Patient is:: awake, in bed, talking Per staff patient has:: no adverse event Internal Medicine Objective - Results Result Diagrams: 01/04/19 21:00 01/04/19 21:00 Recent Labs: Laboratory Last Values WBC 5.9 Th/cmm (4.8-10.8) 01/04/19 21:00 RBC 4.36 Mil/cmm (3.80-5.80) 01/04/19 21:00 Hgb 12.7 gm/dL (12-16) 01/04/19 21:00 Hct 38.1 % (41.0-60) L 01/04/19 21:00 MCV 87.3 fl (80-99) 01/04/19 21:00 MCH 29.1 pg (27.0-31.0) 01/04/19 21:00 MCHC Differential 33.3 pg (28.0-36.0) 01/04/19 21:00 RDW 14.6 % (11.5-20.0) 01/04/19 21:00 Plt Count 277 Th/cmm (150-400) 01/04/19 21:00 MPV 8.0 fl 01/04/19 21:00 Neutrophils % 46.1 % (40.0-80.0) 01/04/19 21:00 Lymphocytes % 35.8 % (20.0-50.0) 01/04/19 21:00 Monocytes % 13.6 % (2.0-10.0) H 01/04/19 21:00 Eosinophils % 4.0 % (0.0-5.0) 01/04/19 21:00 Basophils % 0.5 % (0.0-2.0) 01/04/19 21:00 Sodium 136 mEq/L (136-145) 01/04/19 21:00 Potassium 4.1 mEq/L (3.5-5.1) 01/04/19 21:00 Chloride 102 mEq/L (98-107) 01/04/19 21:00 Carbon Dioxide 24.8 mEq/L (21.0-31.0) 01/04/19 21:00 Anion Gap 13.3 (7.0-16.0) 01/04/19 21:00 BUN 16 mg/dL (7-25) 01/04/19 21:00 Creatinine 0.8 mg/dL (0.7-1.3) 01/04/19 21:00 Est GFR ( Amer) > 60.0 ml/min (>90) 01/04/19 21:00 Est GFR (Non-Af Amer) > 60.0 ml/min 01/04/19 21:00 BUN/Creatinine Ratio 20.0 01/04/19 21:00 Glucose 125 mg/dL (70-105) H 01/04/19 21:00 Calcium 9.5 mg/dL (8.6-10.3) 01/04/19 21:00 Total Bilirubin 0.3 mg/dL (0.3-1.0) 01/04/19 21:00 AST 13 U/L (13-39) 01/04/19 21:00 ALT 6 U/L (7-52) L 01/04/19 21:00 Alkaline Phosphatase 63 U/L (34-104) 01/04/19 21:00 Total Protein 6.9 gm/dL (6.0-8.3) 01/04/19 21:00 Albumin 4.1 gm/dL (4.2-5.5) L 01/04/19 21:00 Globulin 2.8 gm/dL 01/04/19 21:00 Albumin/Globulin Ratio 1.5 (1.0-1.8) 01/04/19 21:00 Triglycerides 168 mg/dL (<150) H 01/04/19 21:00 Cholesterol 223 mg/dL (<200) H 01/04/19 21:00 LDL Cholesterol Direct 151 mg/dL (75-193) 01/04/19 21:00 HDL Cholesterol 51 mg/dL (23-92) 01/04/19 21:00 TSH 3.63 uIU/ml (0.34-5.60) 01/04/19 21:00 Urine Source RANDOM 01/04/19 20:44 Urine Color YELLOW 01/04/19 20:44 Urine Clarity CLEAR (CLEAR) 01/04/19 20:44 Urine pH 7.0 (4.6 - 8.0) 01/04/19 20:44 Ur Specific [place] 1.010 (1.005-1.030) 01/04/19 20:44 Urine Protein NEGATIVE mg/dL (NEGATIVE) 01/04/19 20:44 Urine Glucose (UA) NEGATIVE mg/dL (NEGATIVE) 01/04/19 20:44 Urine Ketones NEGATIVE mg/dL (NEGATIVE) 01/04/19 20:44 Urine Blood NEGATIVE (NEGATIVE) 01/04/19 20:44 Urine Nitrate NEGATIVE (NEGATIVE) 01/04/19 20:44 Urine Bilirubin NEGATIVE (NEGATIVE) 01/04/19 20:44 Urine Urobilinogen 0.2 E.U./dL (0.2 - 1.0) 01/04/19 20:44 Ur Leukocyte Esterase NEGATIVE (NEGATIVE) 01/04/19 20:44 Salicylates < 25.0 mg/L (30.0-100.0) L 01/04/19 21:00 Urine Opiates Screen NEGATIVE (NEGATIVE) 01/04/19 20:44 Urine Methadone Screen NEGATIVE (NEGATIVE) 01/04/19 20:44 Acetaminophen < 10.0 ug/mL (10.0-30.0) L 01/04/19 21:00 Ur Barbiturates Screen NEGATIVE (NEGATIVE) 01/04/19 20:44 Valproic Acid 63.4 ug/mL (50.0-100.0) 01/07/19 12:07 Ur Tricyclics Screen POSITIVE (NEGATIVE) H 01/04/19 20:44 Ur Phencyclidine Scrn NEGATIVE (NEGATIVE) 01/04/19 20:44 Amphetamines Screen NEGATIVE (NEGATIVE) 01/04/19 20:44 U Methamphetamines Scrn NEGATIVE (NEGATIVE) 01/04/19 20:44 U Benzodiazepines Scrn NEGATIVE (NEGATIVE) 01/04/19 20:44 U Cocaine Metab Screen NEGATIVE (NEGATIVE) 01/04/19 20:44 U Cannabinoids Screen NEGATIVE (NEGATIVE) 01/04/19 20:44 Ethyl Alcohol < 10 mg/dL (0-10) 01/04/19 21:00 RPR NONREACTIVE (NONREACTIVE) 01/04/19 21:00 - Physical Exam Vitals and I&O: Vital Signs Temp 98.4 F 01/12/19 20:29 Pulse 113 01/12/19 20:29 Resp 16 01/12/19 20:29 BP 105/62 01/12/19 14:00 Pulse Ox 93 01/12/19 20:29 Intake & Output 01/12/19 01/12/19 01/13/19 06:59 18:59 06:59 Intake Total 120 800 240 Balance 120 800 240 Intake: Oral 120 800 240 Other: # Voids 3 3 2 # Bowel Movements 1 Active Medications: Current Medications Al Hydrox/Mg Hydrox/Simethicone (Maalox) 30 ml PO PRN PRN PRN Reason: GI DISTRESS Stop: 03/05/19 23:49 Divalproex Sodium (Depakote Dr) 250 mg PO AC [facility] Stop: 03/06/19 16:29 Last Admin: 01/12/19 17:30 Dose: 250 mg Docusate Sodium (Colace) 250 mg PO DAILY [facility] Stop: 03/06/19 08:59 Last Admin: 01/12/19 08:24 Dose: 250 mg Famotidine (Pepcid) 40 mg PO DAILY [facility] Stop: 03/06/19 08:59 Last Admin: 01/12/19 08:23 Dose: 40 mg Levetiracetam (Keppra) 500 mg PO BID [facility] Stop: 03/06/19 08:59 Last Admin: 01/12/19 17:39 Dose: 500 mg Magnesium Hydroxide (Milk Of Magnesia) 30 ml PO HS PRN PRN Reason: Constipation Stop: 03/05/19 23:53 Metoprolol Tartrate (Lopressor) 50 mg PO BID [facility] Stop: 03/06/19 08:59 Last Admin: 01/12/19 16:40 Dose: Not Given Quetiapine Fumarate (Seroquel) 200 mg PO HS [facility]; Protocol Stop: 03/06/19 20:59 Last Admin: 01/11/19 20:56 Dose: 200 mg Risperidone (Risperdal) 3 mg PO BID [facility] Stop: 03/10/19 16:59 Last Admin: 01/12/19 17:39 Dose: 3 mg General: demented HEENT: NC/AT, PERRLA, EOMI, anicteric sclerae, throat clear Neck: Supple, No JVD, No thyromegaly, +2 carotid pulse wo bruit, No LAD Cardiovascular: RRR, Normal S1, Normal S2, without murmur Abdomen: soft, non-tender, non-distended Neurological: no change - Procedures Procedures: Procedures Procedure Code Date GROUP PSYCHOTHERAPY 95897 07/16/15 GROUP PSYCHOTHERAPY GZHZZZZ 07/16/15 INDIVID PSYCHOTHERAP NEC 94.39 09/06/13 OTHER GROUP THERAPY 94.44 05/03/14 RECREATIONAL THERAPY 93.81 08/25/12 Internal Medicine Assmt/Plan - Assessment Assessment: 1.HTN. 2.SEIZURE DISORDER. 3.DJD. 4.PSYCHOSIS. - Plan Plan: CONTINUE ON CURRENT MEDICATION AND DIET. Nutritional Asmnt/Malnutr-PDOC - Dietary Evaluation Malnutrition Findings (Please click <Entered> for more info): Nutritional Asmnt/Malnutrition Start: 01/05/19 10: 04 Text: Status: Complete Freq: Protocol: Document 01/08/19 19:22 LCHENG (Rec: 01/08/19 19:26 LCHENG [id number]) Nutritional Asmnt/Malnutrition Patient General Information Nutritional Screening Moderate Risk Diagnosis paranoid schizophrenia, depression Pertinent Medical Hx/Surgical Hx HTN, DM, CVA/TIA, dyslipidemia , PUD/GERD, seizures, arthritis, dementia, paranoid schizophrenia, depression Subjective Information Pt seen resting in room at time of visit. Per EMR, PO intake 100%. Current Diet Order/ Nutrition Support NCS, chopped Pertinent Medications colace, pepcid, seroquel Pertinent Labs 4/4 Glucose 125, Alb 4.1 Nutritional Hx/Data Height 1.57 m Height (Calculated Centimeters) 157.5 Current Weight (lbs) 58.967 kg Weight (Calculated Kilograms) 59.0 Weight (Calculated Grams) 21246.0 [place] Body Weight 110 Body Mass Index (BMI) 23.8 Weight Status Approriate GI Symptoms GI Symptoms None Last BM 4/6 Difficult in: None Skin Integrity/Comment: intact Current %PO Good (75-100%) Estimated Nutritional Goals BEE in Kcals: Using Current wt Calories/Kcals/Kg 25-30 Kcals Calculated 9426-9877 Protein: Using Current wt Protein g/k Protein Calculated 59 Fluid: ml 1475-1770ml (1ml/kcal) Nutritional Problem No current Nutrition Prob Problem n/A Malnutrition Alert Is there a minimum of two criteria No selected? Query Text:Check all the applicable criteria. A minimum of two criteria are recommended for diagnosis of either severe or non-severe malnutrition. Malnutrition Related to Morbid Obesity Malnutrition related to morbid obesity No Intervention/Recommendation Comments 1. Continue with NCS chopped diet as ordered. 2. Monitor PO intake, wt, labs and skin integrity 3. F/U as low risk in 7 days Expected Outcomes/Goals Expected Outcomes/Goals 1. PO intake to meet at least 75% of nutritional needs. 2. Wt stability, skin to remain intact, labs to approach WNL.
[2019-01-13] MEDS: Multivitamin w/ Minerals Tab PO SCH (08:56)
--- NOTE | 2019-01-13 13:21 | Progress Notes ---
DATE: 01/12/2019 Case was discussed with staff of the patient and reviewed records. The patient continues to be internally preoccupied, looking disheveled, talking to himself at times. He is sleeping better, eating better. He has been compliant with the medication with no side effects, no sedation, no nausea, and no extrapyramidal symptoms. His Depakote level is 63.4 which is within acceptable therapeutic range. We will continue to work with the patient in group therapy, milieu therapy, and adjust medication as needed. JOB# [id number]
--- NOTE | 2019-01-13 19:07 | General Progress Note ---
Subjective - Review of Systems Service Date: 01/13/19 Subjective: resting comfortably no distress Objective - Results Result Diagrams: 01/04/19 21:00 01/04/19 21:00 Recent Labs: Laboratory Last Values WBC 5.9 Th/cmm (4.8-10.8) 01/04/19 21:00 RBC 4.36 Mil/cmm (3.80-5.80) 01/04/19 21:00 Hgb 12.7 gm/dL (12-16) 01/04/19 21:00 Hct 38.1 % (41.0-60) L 01/04/19 21:00 MCV 87.3 fl (80-99) 01/04/19 21:00 MCH 29.1 pg (27.0-31.0) 01/04/19 21:00 MCHC Differential 33.3 pg (28.0-36.0) 01/04/19 21:00 RDW 14.6 % (11.5-20.0) 01/04/19 21:00 Plt Count 277 Th/cmm (150-400) 01/04/19 21:00 MPV 8.0 fl 01/04/19 21:00 Neutrophils % 46.1 % (40.0-80.0) 01/04/19 21:00 Lymphocytes % 35.8 % (20.0-50.0) 01/04/19 21:00 Monocytes % 13.6 % (2.0-10.0) H 01/04/19 21:00 Eosinophils % 4.0 % (0.0-5.0) 01/04/19 21:00 Basophils % 0.5 % (0.0-2.0) 01/04/19 21:00 Sodium 136 mEq/L (136-145) 01/04/19 21:00 Potassium 4.1 mEq/L (3.5-5.1) 01/04/19 21:00 Chloride 102 mEq/L (98-107) 01/04/19 21:00 Carbon Dioxide 24.8 mEq/L (21.0-31.0) 01/04/19 21:00 Anion Gap 13.3 (7.0-16.0) 01/04/19 21:00 BUN 16 mg/dL (7-25) 01/04/19 21:00 Creatinine 0.8 mg/dL (0.7-1.3) 01/04/19 21:00 Est GFR ( Amer) > 60.0 ml/min (>90) 01/04/19 21:00 Est GFR (Non-Af Amer) > 60.0 ml/min 01/04/19 21:00 BUN/Creatinine Ratio 20.0 01/04/19 21:00 Glucose 125 mg/dL (70-105) H 01/04/19 21:00 Calcium 9.5 mg/dL (8.6-10.3) 01/04/19 21:00 Total Bilirubin 0.3 mg/dL (0.3-1.0) 01/04/19 21:00 AST 13 U/L (13-39) 01/04/19 21:00 ALT 6 U/L (7-52) L 01/04/19 21:00 Alkaline Phosphatase 63 U/L (34-104) 01/04/19 21:00 Total Protein 6.9 gm/dL (6.0-8.3) 01/04/19 21:00 Albumin 4.1 gm/dL (4.2-5.5) L 01/04/19 21:00 Globulin 2.8 gm/dL 01/04/19 21:00 Albumin/Globulin Ratio 1.5 (1.0-1.8) 01/04/19 21:00 Triglycerides 168 mg/dL (<150) H 01/04/19 21:00 Cholesterol 223 mg/dL (<200) H 01/04/19 21:00 LDL Cholesterol Direct 151 mg/dL (75-193) 01/04/19 21:00 HDL Cholesterol 51 mg/dL (23-92) 01/04/19 21:00 TSH 3.63 uIU/ml (0.34-5.60) 01/04/19 21:00 Urine Source RANDOM 01/04/19 20:44 Urine Color YELLOW 01/04/19 20:44 Urine Clarity CLEAR (CLEAR) 01/04/19 20:44 Urine pH 7.0 (4.6 - 8.0) 01/04/19 20:44 Ur Specific [place] 1.010 (1.005-1.030) 01/04/19 20:44 Urine Protein NEGATIVE mg/dL (NEGATIVE) 01/04/19 20:44 Urine Glucose (UA) NEGATIVE mg/dL (NEGATIVE) 01/04/19 20:44 Urine Ketones NEGATIVE mg/dL (NEGATIVE) 01/04/19 20:44 Urine Blood NEGATIVE (NEGATIVE) 01/04/19 20:44 Urine Nitrate NEGATIVE (NEGATIVE) 01/04/19 20:44 Urine Bilirubin NEGATIVE (NEGATIVE) 01/04/19 20:44 Urine Urobilinogen 0.2 E.U./dL (0.2 - 1.0) 01/04/19 20:44 Ur Leukocyte Esterase NEGATIVE (NEGATIVE) 01/04/19 20:44 Salicylates < 25.0 mg/L (30.0-100.0) L 01/04/19 21:00 Urine Opiates Screen NEGATIVE (NEGATIVE) 01/04/19 20:44 Urine Methadone Screen NEGATIVE (NEGATIVE) 01/04/19 20:44 Acetaminophen < 10.0 ug/mL (10.0-30.0) L 01/04/19 21:00 Ur Barbiturates Screen NEGATIVE (NEGATIVE) 01/04/19 20:44 Valproic Acid 63.4 ug/mL (50.0-100.0) 01/07/19 12:07 Ur Tricyclics Screen POSITIVE (NEGATIVE) H 01/04/19 20:44 Ur Phencyclidine Scrn NEGATIVE (NEGATIVE) 01/04/19 20:44 Amphetamines Screen NEGATIVE (NEGATIVE) 01/04/19 20:44 U Methamphetamines Scrn NEGATIVE (NEGATIVE) 01/04/19 20:44 U Benzodiazepines Scrn NEGATIVE (NEGATIVE) 01/04/19 20:44 U Cocaine Metab Screen NEGATIVE (NEGATIVE) 01/04/19 20:44 U Cannabinoids Screen NEGATIVE (NEGATIVE) 01/04/19 20:44 Ethyl Alcohol < 10 mg/dL (0-10) 01/04/19 21:00 RPR NONREACTIVE (NONREACTIVE) 01/04/19 21:00 - Physical Exam Vitals and I&O: Vital Signs Temp 98.1 F 01/13/19 14:37 Pulse 96 01/13/19 14:37 Resp 18 01/13/19 14:37 BP 123/67 01/13/19 14:37 Pulse Ox 95 01/13/19 14:37 Intake & Output 01/13/19 01/13/19 01/14/19 06:59 18:59 06:59 Intake Total 480 1200 Balance 480 1200 Intake: Oral 480 1200 Other: # Voids 2 4 # Bowel Movements 1 Active Medications: Current Medications Al Hydrox/Mg Hydrox/Simethicone (Maalox) 30 ml PO PRN PRN PRN Reason: GI DISTRESS Stop: 03/05/19 23:49 Divalproex Sodium (Depakote Dr) 250 mg PO AC [facility] Stop: 03/06/19 16:29 Last Admin: 01/13/19 16:24 Dose: 250 mg Docusate Sodium (Colace) 250 mg PO DAILY [facility] Stop: 03/06/19 08:59 Last Admin: 01/13/19 08:56 Dose: 250 mg Famotidine (Pepcid) 40 mg PO DAILY [facility] Stop: 03/06/19 08:59 Last Admin: 01/13/19 08:55 Dose: 40 mg Levetiracetam (Keppra) 500 mg PO BID [facility] Stop: 03/06/19 08:59 Last Admin: 01/13/19 16:24 Dose: 500 mg Magnesium Hydroxide (Milk Of Magnesia) 30 ml PO HS PRN PRN Reason: Constipation Stop: 03/05/19 23:53 Metoprolol Tartrate (Lopressor) 50 mg PO BID [facility] Stop: 03/06/19 08:59 Last Admin: 01/13/19 16:24 Dose: Not Given Quetiapine Fumarate (Seroquel) 200 mg PO HS [facility]; Protocol Stop: 03/06/19 20:59 Last Admin: 01/12/19 21:13 Dose: 200 mg Risperidone (Risperdal) 3 mg PO BID [facility] Stop: 03/10/19 16:59 Last Admin: 01/13/19 16:24 Dose: 3 mg General: No acute distress HEENT: PERRLA Neck: Supple, JVD Cardiovascular: Regular rate, Normal S1, Normal S2 Lungs: Clear to auscultation Abdomen: Bowel sounds, Soft - Procedures Procedures: Procedures Procedure Code Date GROUP PSYCHOTHERAPY 29254 07/16/15 GROUP PSYCHOTHERAPY GZHZZZZ 07/16/15 INDIVID PSYCHOTHERAP NEC 94.39 09/06/13 OTHER GROUP THERAPY 94.44 05/03/14 RECREATIONAL THERAPY 93.81 08/25/12 Assessment/Plan - Assessment Assessment: 1.HTN. 2.SEIZURE DISORDER. 3.DJD. 4.PSYCHOSIS. - Plan Plan: continue current treatment Nutritional Asmnt/Malnutr-PDOC - Dietary Evaluation Malnutrition Findings (Please click <Entered> for more info): Nutritional Asmnt/Malnutrition Start: 01/05/19 10: 04 Text: Status: Complete Freq: Protocol: Document 01/08/19 19:22 LCHENG (Rec: 01/08/19 19:26 LCHENG [id number]) Nutritional Asmnt/Malnutrition Patient General Information Nutritional Screening Moderate Risk Diagnosis paranoid schizophrenia, depression Pertinent Medical Hx/Surgical Hx HTN, DM, CVA/TIA, dyslipidemia , PUD/GERD, seizures, arthritis, dementia, paranoid schizophrenia, depression Subjective Information Pt seen resting in room at time of visit. Per EMR, PO intake 100%. Current Diet Order/ Nutrition Support NCS, chopped Pertinent Medications colace, pepcid, seroquel Pertinent Labs 4/4 Glucose 125, Alb 4.1 Nutritional Hx/Data Height 1.57 m Height (Calculated Centimeters) 157.5 Current Weight (lbs) 58.967 kg Weight (Calculated Kilograms) 59.0 Weight (Calculated Grams) 37398.0 [place] Body Weight 110 Body Mass Index (BMI) 23.8 Weight Status Approriate GI Symptoms GI Symptoms None Last BM 4/6 Difficult in: None Skin Integrity/Comment: intact Current %PO Good (75-100%) Estimated Nutritional Goals BEE in Kcals: Using Current wt Calories/Kcals/Kg 25-30 Kcals Calculated 5479-8679 Protein: Using Current wt Protein g/k Protein Calculated 59 Fluid: ml 1475-1770ml (1ml/kcal) Nutritional Problem No current Nutrition Prob Problem n/A Malnutrition Alert Is there a minimum of two criteria No selected? Query Text:Check all the applicable criteria. A minimum of two criteria are recommended for diagnosis of either severe or non-severe malnutrition. Malnutrition Related to Morbid Obesity Malnutrition related to morbid obesity No Intervention/Recommendation Comments 1. Continue with NCS chopped diet as ordered. 2. Monitor PO intake, wt, labs and skin integrity 3. F/U as low risk in 7 days Expected Outcomes/Goals Expected Outcomes/Goals 1. PO intake to meet at least 75% of nutritional needs. 2. Wt stability, skin to remain intact, labs to approach WNL.
[2019-01-14] MEDS: Multivitamin w/ Minerals Tab PO SCH (08:35)
--- NOTE | 2019-01-14 12:42 | Progress Notes ---
DATE: 01/13/2019 SUBJECTIVE: The patient was evaluated. The patient's chart reviewed. Covering for Dr. Peguero. IDENTIFYING DATA: This is a 68-year-old male reported he was hearing voices, initially came in agitated and hallucinating. Reconciliation reviewed. Currently on Depakote, Colace, Pepcid, Keppra, Seroquel 200 mg p.o. at bedtime and risperidone ____ mg p.o. b.i.d. Overnight, the nursing staff reported he is guarded and preoccupied. Today on [id number] evaluation, the patient is a limited historian. He is preoccupied and suspicious. Reports that he needs to stay here longer because of the worsening. PHYSICAL EXAMINATION: Disheveled, talking to himself and preoccupied. 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 We will continue with the current medication regimen. His Depakote level is currently therapeutic at 63. JOB# [id number]
--- NOTE | 2019-01-14 13:17 | General Progress Note ---
Subjective - Review of Systems Service Date: 01/14/19 Subjective: resting comfortably no distress Objective - Results Result Diagrams: 01/04/19 21:00 01/04/19 21:00 Recent Labs: Laboratory Last Values WBC 5.9 Th/cmm (4.8-10.8) 01/04/19 21:00 RBC 4.36 Mil/cmm (3.80-5.80) 01/04/19 21:00 Hgb 12.7 gm/dL (12-16) 01/04/19 21:00 Hct 38.1 % (41.0-60) L 01/04/19 21:00 MCV 87.3 fl (80-99) 01/04/19 21:00 MCH 29.1 pg (27.0-31.0) 01/04/19 21:00 MCHC Differential 33.3 pg (28.0-36.0) 01/04/19 21:00 RDW 14.6 % (11.5-20.0) 01/04/19 21:00 Plt Count 277 Th/cmm (150-400) 01/04/19 21:00 MPV 8.0 fl 01/04/19 21:00 Neutrophils % 46.1 % (40.0-80.0) 01/04/19 21:00 Lymphocytes % 35.8 % (20.0-50.0) 01/04/19 21:00 Monocytes % 13.6 % (2.0-10.0) H 01/04/19 21:00 Eosinophils % 4.0 % (0.0-5.0) 01/04/19 21:00 Basophils % 0.5 % (0.0-2.0) 01/04/19 21:00 Sodium 136 mEq/L (136-145) 01/04/19 21:00 Potassium 4.1 mEq/L (3.5-5.1) 01/04/19 21:00 Chloride 102 mEq/L (98-107) 01/04/19 21:00 Carbon Dioxide 24.8 mEq/L (21.0-31.0) 01/04/19 21:00 Anion Gap 13.3 (7.0-16.0) 01/04/19 21:00 BUN 16 mg/dL (7-25) 01/04/19 21:00 Creatinine 0.8 mg/dL (0.7-1.3) 01/04/19 21:00 Est GFR ( Amer) > 60.0 ml/min (>90) 01/04/19 21:00 Est GFR (Non-Af Amer) > 60.0 ml/min 01/04/19 21:00 BUN/Creatinine Ratio 20.0 01/04/19 21:00 Glucose 125 mg/dL (70-105) H 01/04/19 21:00 Calcium 9.5 mg/dL (8.6-10.3) 01/04/19 21:00 Total Bilirubin 0.3 mg/dL (0.3-1.0) 01/04/19 21:00 AST 13 U/L (13-39) 01/04/19 21:00 ALT 6 U/L (7-52) L 01/04/19 21:00 Alkaline Phosphatase 63 U/L (34-104) 01/04/19 21:00 Total Protein 6.9 gm/dL (6.0-8.3) 01/04/19 21:00 Albumin 4.1 gm/dL (4.2-5.5) L 01/04/19 21:00 Globulin 2.8 gm/dL 01/04/19 21:00 Albumin/Globulin Ratio 1.5 (1.0-1.8) 01/04/19 21:00 Triglycerides 168 mg/dL (<150) H 01/04/19 21:00 Cholesterol 223 mg/dL (<200) H 01/04/19 21:00 LDL Cholesterol Direct 151 mg/dL (75-193) 01/04/19 21:00 HDL Cholesterol 51 mg/dL (23-92) 01/04/19 21:00 TSH 3.63 uIU/ml (0.34-5.60) 01/04/19 21:00 Urine Source RANDOM 01/04/19 20:44 Urine Color YELLOW 01/04/19 20:44 Urine Clarity CLEAR (CLEAR) 01/04/19 20:44 Urine pH 7.0 (4.6 - 8.0) 01/04/19 20:44 Ur Specific [place] 1.010 (1.005-1.030) 01/04/19 20:44 Urine Protein NEGATIVE mg/dL (NEGATIVE) 01/04/19 20:44 Urine Glucose (UA) NEGATIVE mg/dL (NEGATIVE) 01/04/19 20:44 Urine Ketones NEGATIVE mg/dL (NEGATIVE) 01/04/19 20:44 Urine Blood NEGATIVE (NEGATIVE) 01/04/19 20:44 Urine Nitrate NEGATIVE (NEGATIVE) 01/04/19 20:44 Urine Bilirubin NEGATIVE (NEGATIVE) 01/04/19 20:44 Urine Urobilinogen 0.2 E.U./dL (0.2 - 1.0) 01/04/19 20:44 Ur Leukocyte Esterase NEGATIVE (NEGATIVE) 01/04/19 20:44 Salicylates < 25.0 mg/L (30.0-100.0) L 01/04/19 21:00 Urine Opiates Screen NEGATIVE (NEGATIVE) 01/04/19 20:44 Urine Methadone Screen NEGATIVE (NEGATIVE) 01/04/19 20:44 Acetaminophen < 10.0 ug/mL (10.0-30.0) L 01/04/19 21:00 Ur Barbiturates Screen NEGATIVE (NEGATIVE) 01/04/19 20:44 Valproic Acid 63.4 ug/mL (50.0-100.0) 01/07/19 12:07 Ur Tricyclics Screen POSITIVE (NEGATIVE) H 01/04/19 20:44 Ur Phencyclidine Scrn NEGATIVE (NEGATIVE) 01/04/19 20:44 Amphetamines Screen NEGATIVE (NEGATIVE) 01/04/19 20:44 U Methamphetamines Scrn NEGATIVE (NEGATIVE) 01/04/19 20:44 U Benzodiazepines Scrn NEGATIVE (NEGATIVE) 01/04/19 20:44 U Cocaine Metab Screen NEGATIVE (NEGATIVE) 01/04/19 20:44 U Cannabinoids Screen NEGATIVE (NEGATIVE) 01/04/19 20:44 Ethyl Alcohol < 10 mg/dL (0-10) 01/04/19 21:00 RPR NONREACTIVE (NONREACTIVE) 01/04/19 21:00 - Physical Exam Vitals and I&O: Vital Signs Temp 98.2 F 01/14/19 05:51 Pulse 101 01/14/19 05:51 Resp 18 01/14/19 05:51 BP 96/59 01/14/19 05:51 Pulse Ox 97 01/14/19 05:51 Intake & Output 01/13/19 01/14/19 01/14/19 18:59 06:59 18:59 Intake Total 1200 360 Balance 1200 360 Intake: Oral 1200 360 Other: # Voids 4 2 # Bowel Movements 1 Active Medications: Current Medications Al Hydrox/Mg Hydrox/Simethicone (Maalox) 30 ml PO PRN PRN PRN Reason: GI DISTRESS Stop: 03/05/19 23:49 Divalproex Sodium (Depakote Dr) 250 mg PO AC [facility] Stop: 03/06/19 16:29 Last Admin: 01/14/19 11:36 Dose: 250 mg Docusate Sodium (Colace) 250 mg PO DAILY [facility] Stop: 03/06/19 08:59 Last Admin: 01/14/19 08:35 Dose: 250 mg Famotidine (Pepcid) 40 mg PO DAILY [facility] Stop: 03/06/19 08:59 Last Admin: 01/14/19 08:35 Dose: 40 mg Levetiracetam (Keppra) 500 mg PO BID [facility] Stop: 03/06/19 08:59 Last Admin: 01/14/19 08:35 Dose: 500 mg Magnesium Hydroxide (Milk Of Magnesia) 30 ml PO HS PRN PRN Reason: Constipation Stop: 03/05/19 23:53 Metoprolol Tartrate (Lopressor) 50 mg PO BID [facility] Stop: 03/06/19 08:59 Last Admin: 01/14/19 08:36 Dose: Not Given Quetiapine Fumarate (Seroquel) 200 mg PO HS [facility]; Protocol Stop: 03/06/19 20:59 Last Admin: 01/13/19 20:16 Dose: 200 mg Risperidone (Risperdal) 3 mg PO BID [facility] Stop: 03/10/19 16:59 Last Admin: 01/14/19 08:35 Dose: 3 mg General: No acute distress HEENT: PERRLA Neck: Supple, JVD Cardiovascular: Regular rate, Normal S1, Normal S2 Lungs: Clear to auscultation Abdomen: Bowel sounds, Soft - Procedures Procedures: Procedures Procedure Code Date GROUP PSYCHOTHERAPY 73077 07/16/15 GROUP PSYCHOTHERAPY GZHZZZZ 07/16/15 INDIVID PSYCHOTHERAP NEC 94.39 09/06/13 OTHER GROUP THERAPY 94.44 05/03/14 RECREATIONAL THERAPY 93.81 08/25/12 Assessment/Plan - Assessment Assessment: 1.HTN. 2.SEIZURE DISORDER. 3.DJD. 4.PSYCHOSIS. - Plan Plan: continue current treatment Nutritional Asmnt/Malnutr-PDOC - Dietary Evaluation Malnutrition Findings (Please click <Entered> for more info): Nutritional Asmnt/Malnutrition Start: 01/05/19 10: 04 Text: Status: Complete Freq: Protocol: Document 01/08/19 19:22 LCHENG (Rec: 01/08/19 19:26 LCHENG [id number]) Nutritional Asmnt/Malnutrition Patient General Information Nutritional Screening Moderate Risk Diagnosis paranoid schizophrenia, depression Pertinent Medical Hx/Surgical Hx HTN, DM, CVA/TIA, dyslipidemia , PUD/GERD, seizures, arthritis, dementia, paranoid schizophrenia, depression Subjective Information Pt seen resting in room at time of visit. Per EMR, PO intake 100%. Current Diet Order/ Nutrition Support NCS, chopped Pertinent Medications colace, pepcid, seroquel Pertinent Labs 4/4 Glucose 125, Alb 4.1 Nutritional Hx/Data Height 1.57 m Height (Calculated Centimeters) 157.5 Current Weight (lbs) 58.967 kg Weight (Calculated Kilograms) 59.0 Weight (Calculated Grams) 97644.0 [place] Body Weight 110 Body Mass Index (BMI) 23.8 Weight Status Approriate GI Symptoms GI Symptoms None Last BM 4/6 Difficult in: None Skin Integrity/Comment: intact Current %PO Good (75-100%) Estimated Nutritional Goals BEE in Kcals: Using Current wt Calories/Kcals/Kg 25-30 Kcals Calculated 1244-4881 Protein: Using Current wt Protein g/k Protein Calculated 59 Fluid: ml 1475-1770ml (1ml/kcal) Nutritional Problem No current Nutrition Prob Problem n/A Malnutrition Alert Is there a minimum of two criteria No selected? Query Text:Check all the applicable criteria. A minimum of two criteria are recommended for diagnosis of either severe or non-severe malnutrition. Malnutrition Related to Morbid Obesity Malnutrition related to morbid obesity No Intervention/Recommendation Comments 1. Continue with NCS chopped diet as ordered. 2. Monitor PO intake, wt, labs and skin integrity 3. F/U as low risk in 7 days Expected Outcomes/Goals Expected Outcomes/Goals 1. PO intake to meet at least 75% of nutritional needs. 2. Wt stability, skin to remain intact, labs to approach WNL.
[2019-01-15] MEDS: Multivitamin w/ Minerals Tab PO SCH (09:28)
--- NOTE | 2019-01-15 17:24 | Internal Medicine Prog Note ---
Internal Medicine Subjective - Subjective Service Date: 01/15/19 Patient seen and examined:: with staff Patient is:: awake, in bed, talking Per staff patient has:: no adverse event Internal Medicine Objective - Results Result Diagrams: 01/04/19 21:00 01/04/19 21:00 Recent Labs: Laboratory Last Values WBC 5.9 Th/cmm (4.8-10.8) 01/04/19 21:00 RBC 4.36 Mil/cmm (3.80-5.80) 01/04/19 21:00 Hgb 12.7 gm/dL (12-16) 01/04/19 21:00 Hct 38.1 % (41.0-60) L 01/04/19 21:00 MCV 87.3 fl (80-99) 01/04/19 21:00 MCH 29.1 pg (27.0-31.0) 01/04/19 21:00 MCHC Differential 33.3 pg (28.0-36.0) 01/04/19 21:00 RDW 14.6 % (11.5-20.0) 01/04/19 21:00 Plt Count 277 Th/cmm (150-400) 01/04/19 21:00 MPV 8.0 fl 01/04/19 21:00 Neutrophils % 46.1 % (40.0-80.0) 01/04/19 21:00 Lymphocytes % 35.8 % (20.0-50.0) 01/04/19 21:00 Monocytes % 13.6 % (2.0-10.0) H 01/04/19 21:00 Eosinophils % 4.0 % (0.0-5.0) 01/04/19 21:00 Basophils % 0.5 % (0.0-2.0) 01/04/19 21:00 Sodium 136 mEq/L (136-145) 01/04/19 21:00 Potassium 4.1 mEq/L (3.5-5.1) 01/04/19 21:00 Chloride 102 mEq/L (98-107) 01/04/19 21:00 Carbon Dioxide 24.8 mEq/L (21.0-31.0) 01/04/19 21:00 Anion Gap 13.3 (7.0-16.0) 01/04/19 21:00 BUN 16 mg/dL (7-25) 01/04/19 21:00 Creatinine 0.8 mg/dL (0.7-1.3) 01/04/19 21:00 Est GFR ( Amer) > 60.0 ml/min (>90) 01/04/19 21:00 Est GFR (Non-Af Amer) > 60.0 ml/min 01/04/19 21:00 BUN/Creatinine Ratio 20.0 01/04/19 21:00 Glucose 125 mg/dL (70-105) H 01/04/19 21:00 Calcium 9.5 mg/dL (8.6-10.3) 01/04/19 21:00 Total Bilirubin 0.3 mg/dL (0.3-1.0) 01/04/19 21:00 AST 13 U/L (13-39) 01/04/19 21:00 ALT 6 U/L (7-52) L 01/04/19 21:00 Alkaline Phosphatase 63 U/L (34-104) 01/04/19 21:00 Total Protein 6.9 gm/dL (6.0-8.3) 01/04/19 21:00 Albumin 4.1 gm/dL (4.2-5.5) L 01/04/19 21:00 Globulin 2.8 gm/dL 01/04/19 21:00 Albumin/Globulin Ratio 1.5 (1.0-1.8) 01/04/19 21:00 Triglycerides 168 mg/dL (<150) H 01/04/19 21:00 Cholesterol 223 mg/dL (<200) H 01/04/19 21:00 LDL Cholesterol Direct 151 mg/dL (75-193) 01/04/19 21:00 HDL Cholesterol 51 mg/dL (23-92) 01/04/19 21:00 TSH 3.63 uIU/ml (0.34-5.60) 01/04/19 21:00 Urine Source RANDOM 01/04/19 20:44 Urine Color YELLOW 01/04/19 20:44 Urine Clarity CLEAR (CLEAR) 01/04/19 20:44 Urine pH 7.0 (4.6 - 8.0) 01/04/19 20:44 Ur Specific [place] 1.010 (1.005-1.030) 01/04/19 20:44 Urine Protein NEGATIVE mg/dL (NEGATIVE) 01/04/19 20:44 Urine Glucose (UA) NEGATIVE mg/dL (NEGATIVE) 01/04/19 20:44 Urine Ketones NEGATIVE mg/dL (NEGATIVE) 01/04/19 20:44 Urine Blood NEGATIVE (NEGATIVE) 01/04/19 20:44 Urine Nitrate NEGATIVE (NEGATIVE) 01/04/19 20:44 Urine Bilirubin NEGATIVE (NEGATIVE) 01/04/19 20:44 Urine Urobilinogen 0.2 E.U./dL (0.2 - 1.0) 01/04/19 20:44 Ur Leukocyte Esterase NEGATIVE (NEGATIVE) 01/04/19 20:44 Salicylates < 25.0 mg/L (30.0-100.0) L 01/04/19 21:00 Urine Opiates Screen NEGATIVE (NEGATIVE) 01/04/19 20:44 Urine Methadone Screen NEGATIVE (NEGATIVE) 01/04/19 20:44 Acetaminophen < 10.0 ug/mL (10.0-30.0) L 01/04/19 21:00 Ur Barbiturates Screen NEGATIVE (NEGATIVE) 01/04/19 20:44 Valproic Acid 63.4 ug/mL (50.0-100.0) 01/07/19 12:07 Ur Tricyclics Screen POSITIVE (NEGATIVE) H 01/04/19 20:44 Ur Phencyclidine Scrn NEGATIVE (NEGATIVE) 01/04/19 20:44 Amphetamines Screen NEGATIVE (NEGATIVE) 01/04/19 20:44 U Methamphetamines Scrn NEGATIVE (NEGATIVE) 01/04/19 20:44 U Benzodiazepines Scrn NEGATIVE (NEGATIVE) 01/04/19 20:44 U Cocaine Metab Screen NEGATIVE (NEGATIVE) 01/04/19 20:44 U Cannabinoids Screen NEGATIVE (NEGATIVE) 01/04/19 20:44 Ethyl Alcohol < 10 mg/dL (0-10) 01/04/19 21:00 RPR NONREACTIVE (NONREACTIVE) 01/04/19 21:00 - Physical Exam Vitals and I&O: Vital Signs Temp 97.3 F 01/15/19 13:56 Pulse 127 01/15/19 13:56 Resp 18 01/15/19 13:56 BP 116/64 01/15/19 13:56 Pulse Ox 98 01/15/19 13:56 Intake & Output 01/14/19 01/15/19 01/15/19 18:59 06:59 18:59 Intake Total 1200 300 Balance 1200 300 Intake: Oral 1200 300 Other: # Voids 4 1 # Bowel Movements 1 0 Active Medications: Current Medications Al Hydrox/Mg Hydrox/Simethicone (Maalox) 30 ml PO PRN PRN PRN Reason: GI DISTRESS Stop: 03/05/19 23:49 Divalproex Sodium (Depakote Dr) 250 mg PO AC [facility] Stop: 03/06/19 16:29 Last Admin: 01/15/19 16:27 Dose: 250 mg Docusate Sodium (Colace) 250 mg PO DAILY [facility] Stop: 03/06/19 08:59 Last Admin: 01/15/19 09:28 Dose: 250 mg Famotidine (Pepcid) 40 mg PO DAILY [facility] Stop: 03/06/19 08:59 Last Admin: 01/15/19 09:28 Dose: 40 mg Levetiracetam (Keppra) 500 mg PO BID [facility] Stop: 03/06/19 08:59 Last Admin: 01/15/19 16:27 Dose: 500 mg Magnesium Hydroxide (Milk Of Magnesia) 30 ml PO HS PRN PRN Reason: Constipation Stop: 03/05/19 23:53 Metoprolol Tartrate (Lopressor) 50 mg PO BID [facility] Stop: 03/06/19 08:59 Last Admin: 01/15/19 16:27 Dose: Not Given Quetiapine Fumarate (Seroquel) 300 mg PO HS [facility]; Protocol Stop: 03/16/19 20:59 Risperidone (Risperdal) 3 mg PO BID [facility] Stop: 03/10/19 16:59 Last Admin: 01/15/19 16:27 Dose: 3 mg General: demented HEENT: NC/AT, PERRLA, EOMI, anicteric sclerae, throat clear Neck: Supple, No JVD, No thyromegaly, +2 carotid pulse wo bruit, No LAD Cardiovascular: RRR, Normal S1, Normal S2, without murmur Abdomen: soft, non-tender, non-distended Neurological: no change - Procedures Procedures: Procedures Procedure Code Date GROUP PSYCHOTHERAPY 47054 07/16/15 GROUP PSYCHOTHERAPY GZHZZZZ 07/16/15 [facility] PSYCHOTHERAP NEC 94.39 09/06/13 OTHER GROUP THERAPY 94.44 05/03/14 RECREATIONAL THERAPY 93.81 08/25/12 Internal Medicine Assmt/Plan - Assessment Assessment: 1.HTN. 2.SEIZURE DISORDER. 3.DJD. 4.PSYCHOSIS. - Plan Plan: CONTINUE ON CURRENT MEDICATION AND DIET. Nutritional Asmnt/Malnutr-PDOC - Dietary Evaluation Malnutrition Findings (Please click <Entered> for more info): Nutritional Asmnt/Malnutrition Start: 01/05/19 10: 04 Text: Status: Complete Freq: Protocol: Document 01/08/19 19:22 LCHENG (Rec: 01/08/19 19:26 LCHENG [id number]) Nutritional Asmnt/Malnutrition Patient General Information Nutritional Screening Moderate Risk Diagnosis paranoid schizophrenia, depression Pertinent Medical Hx/Surgical Hx HTN, DM, CVA/TIA, dyslipidemia , PUD/GERD, seizures, arthritis, dementia, paranoid schizophrenia, depression Subjective Information Pt seen resting in room at time of visit. Per EMR, PO intake 100%. Current Diet Order/ Nutrition Support NCS, chopped Pertinent Medications colace, pepcid, seroquel Pertinent Labs 4/4 Glucose 125, Alb 4.1 Nutritional Hx/Data Height 1.57 m Height (Calculated Centimeters) 157.5 Current Weight (lbs) 58.967 kg Weight (Calculated Kilograms) 59.0 Weight (Calculated Grams) 42158.0 [place] Body Weight 110 Body Mass Index (BMI) 23.8 Weight Status Approriate GI Symptoms GI Symptoms None Last BM 4/6 Difficult in: None Skin Integrity/Comment: intact Current %PO Good (75-100%) Estimated Nutritional Goals BEE in Kcals: Using Current wt Calories/Kcals/Kg 25-30 Kcals Calculated 7557-5632 Protein: Using Current wt Protein g/k Protein Calculated 59 Fluid: ml 1475-1770ml (1ml/kcal) Nutritional Problem No current Nutrition Prob Problem n/A Malnutrition Alert Is there a minimum of two criteria No selected? Query Text:Check all the applicable criteria. A minimum of two criteria are recommended for diagnosis of either severe or non-severe malnutrition. Malnutrition Related to Morbid Obesity Malnutrition related to morbid obesity No Intervention/Recommendation Comments 1. Continue with NCS chopped diet as ordered. 2. Monitor PO intake, wt, labs and skin integrity 3. F/U as low risk in 7 days Expected Outcomes/Goals Expected Outcomes/Goals 1. PO intake to meet at least 75% of nutritional needs. 2. Wt stability, skin to remain intact, labs to approach WNL.
--- NOTE | 2019-01-15 20:33 | Progress Notes ---
DATE: 01/15/2019 SUBJECTIVE: Case was discussed with staff of the patient, reviewed records. The patient reports that he does not feel ready to go. He is hearing voices. He feels uncomfortable. He is compliant with the medication with no side effects. He wants to go back to [place] he said. I will be increasing his Seroquel to 300 mg at bedtime to help improve his symptoms and hopefully he will be ready to go tomorrow and no side effects with the medication, no sedation, no nausea, and no extrapyramidal symptoms. We will continue to work with the patient in group therapy, milieu therapy, and adjust the medications as needed. JOB# [id number]
[2019-01-16] MEDS: Multivitamin w/ Minerals Tab PO SCH (09:14)
--- NOTE | 2019-01-16 20:06 | Discharge Summary ---
DATE OF DISCHARGE: 01/16/2019 IDENTIFYING INFORMATION: The patient is a 68-year-old male. CHIEF COMPLAINT: Hearing voices. HISTORY OF PRESENT ILLNESS: The patient was referred because of hearing voices, hallucinations, has been agitated, confused, unable to provide reliable history. The patient agrees he has been hearing voices. He reported that he has difficulty with sleep and appetite. Denies any substance abuse. He said voices are not command in nature. He is well-known to me with multiple prior admissions, has been treated at the nursing facility at [place]. He was taking his medication and has been on Seroquel, Depakote, and Risperdal 2 mg twice a day. The patient with multiple prior admissions. COURSE IN THE HOSPITAL: The patient was started back on his medication, which was Risperdal and the dose was increased to 3 mg twice a day. Also, the Seroquel was increased to 300 mg at bedtime. Continued on multivitamin, metoprolol, and Keppra for seizure disorder, Pepcid for GERD and Depakote 250 mg twice a day. The patient progressively got better. He was no longer hearing voices. He was sleeping well, eating well. He wanted to go [place] as he improved. He was no longer psychotic and felt he could be discharged to a lesser level of care. His Depakote level was ____, which is within acceptable range. Urine drug screen was positive for tricyclics. His urinalysis is negative. Chemistry panel with high blood sugar and high triglycerides and cholesterol. The rest within normal range. CBC with low hematocrit, high monocyte. FINAL DIAGNOSIS: Schizoaffective disorder. MEDICAL DIAGNOSES: Seizure disorder, hypertension. FOLLOWUP: The patient will follow up with the psychiatrist and primary care physician. DISPOSITION: He wants to go to [facility]. EXPECTED OUTCOME: Stable if the patient complies with the above. [facility]# [id number]
--- NOTE | 2019-01-16 20:41 | Internal Medicine Prog Note ---
Internal Medicine Subjective - Subjective Service Date: 01/16/19 Patient seen and examined:: with staff (he feels well) Patient is:: awake, in bed, talking Per staff patient has:: no adverse event Internal Medicine Objective - Results Result Diagrams: 01/04/19 21:00 01/04/19 21:00 Recent Labs: Laboratory Last Values WBC 5.9 Th/cmm (4.8-10.8) 01/04/19 21:00 RBC 4.36 Mil/cmm (3.80-5.80) 01/04/19 21:00 Hgb 12.7 gm/dL (12-16) 01/04/19 21:00 Hct 38.1 % (41.0-60) L 01/04/19 21:00 MCV 87.3 fl (80-99) 01/04/19 21:00 MCH 29.1 pg (27.0-31.0) 01/04/19 21:00 MCHC Differential 33.3 pg (28.0-36.0) 01/04/19 21:00 RDW 14.6 % (11.5-20.0) 01/04/19 21:00 Plt Count 277 Th/cmm (150-400) 01/04/19 21:00 MPV 8.0 fl 01/04/19 21:00 Neutrophils % 46.1 % (40.0-80.0) 01/04/19 21:00 Lymphocytes % 35.8 % (20.0-50.0) 01/04/19 21:00 Monocytes % 13.6 % (2.0-10.0) H 01/04/19 21:00 Eosinophils % 4.0 % (0.0-5.0) 01/04/19 21:00 Basophils % 0.5 % (0.0-2.0) 01/04/19 21:00 Sodium 136 mEq/L (136-145) 01/04/19 21:00 Potassium 4.1 mEq/L (3.5-5.1) 01/04/19 21:00 Chloride 102 mEq/L (98-107) 01/04/19 21:00 Carbon Dioxide 24.8 mEq/L (21.0-31.0) 01/04/19 21:00 Anion Gap 13.3 (7.0-16.0) 04/04/19 21:00 BUN 16 mg/dL (7-25) 01/04/19 21:00 Creatinine 0.8 mg/dL (0.7-1.3) 01/04/19 21:00 Est GFR ( Amer) > 60.0 ml/min (>90) 01/04/19 21:00 Est GFR (Non-Af Amer) > 60.0 ml/min 01/04/19 21:00 BUN/Creatinine Ratio 20.0 01/04/19 21:00 Glucose 125 mg/dL (70-105) H 01/04/19 21:00 Calcium 9.5 mg/dL (8.6-10.3) 01/04/19 21:00 Total Bilirubin 0.3 mg/dL (0.3-1.0) 01/04/19 21:00 AST 13 U/L (13-39) 01/04/19 21:00 ALT 6 U/L (7-52) L 01/04/19 21:00 Alkaline Phosphatase 63 U/L (34-104) 01/04/19 21:00 Total Protein 6.9 gm/dL (6.0-8.3) 01/04/19 21:00 Albumin 4.1 gm/dL (4.2-5.5) L 01/04/19 21:00 Globulin 2.8 gm/dL 01/04/19 21:00 Albumin/Globulin Ratio 1.5 (1.0-1.8) 01/04/19 21:00 Triglycerides 168 mg/dL (<150) H 01/04/19 21:00 Cholesterol 223 mg/dL (<200) H 01/04/19 21:00 LDL Cholesterol Direct 151 mg/dL (75-193) 01/04/19 21:00 HDL Cholesterol 51 mg/dL (23-92) 01/04/19 21:00 TSH 3.63 uIU/ml (0.34-5.60) 01/04/19 21:00 Urine Source RANDOM 01/04/19 20:44 Urine Color YELLOW 01/04/19 20:44 Urine Clarity CLEAR (CLEAR) 01/04/19 20:44 Urine pH 7.0 (4.6 - 8.0) 01/04/19 20:44 Ur Specific [place] 1.010 (1.005-1.030) 01/04/19 20:44 Urine Protein NEGATIVE mg/dL (NEGATIVE) 01/04/19 20:44 Urine Glucose (UA) NEGATIVE mg/dL (NEGATIVE) 01/04/19 20:44 Urine Ketones NEGATIVE mg/dL (NEGATIVE) 01/04/19 20:44 Urine Blood NEGATIVE (NEGATIVE) 01/04/19 20:44 Urine Nitrate NEGATIVE (NEGATIVE) 01/04/19 20:44 Urine Bilirubin NEGATIVE (NEGATIVE) 01/04/19 20:44 Urine Urobilinogen 0.2 E.U./dL (0.2 - 1.0) 01/04/19 20:44 Ur Leukocyte Esterase NEGATIVE (NEGATIVE) 01/04/19 20:44 Salicylates < 25.0 mg/L (30.0-100.0) L 01/04/19 21:00 Urine Opiates Screen NEGATIVE (NEGATIVE) 01/04/19 20:44 Urine Methadone Screen NEGATIVE (NEGATIVE) 01/04/19 20:44 Acetaminophen < 10.0 ug/mL (10.0-30.0) L 01/04/19 21:00 Ur Barbiturates Screen NEGATIVE (NEGATIVE) 01/04/19 20:44 Valproic Acid 63.4 ug/mL (50.0-100.0) 01/07/19 12:07 Ur Tricyclics Screen POSITIVE (NEGATIVE) H 01/04/19 20:44 Ur Phencyclidine Scrn NEGATIVE (NEGATIVE) 01/04/19 20:44 Amphetamines Screen NEGATIVE (NEGATIVE) 01/04/19 20:44 U Methamphetamines Scrn NEGATIVE (NEGATIVE) 01/04/19 20:44 U Benzodiazepines Scrn NEGATIVE (NEGATIVE) 01/04/19 20:44 U Cocaine Metab Screen NEGATIVE (NEGATIVE) 01/04/19 20:44 U Cannabinoids Screen NEGATIVE (NEGATIVE) 01/04/19 20:44 Ethyl Alcohol < 10 mg/dL (0-10) 01/04/19 21:00 RPR NONREACTIVE (NONREACTIVE) 01/04/19 21:00 - Physical Exam Vitals and I&O: Vital Signs Temp 97.7 F 01/16/19 20:22 Pulse 103 01/16/19 20:22 Resp 19 01/16/19 20:22 BP 125/79 01/16/19 20:22 Pulse Ox 98 01/16/19 20:22 Intake & Output 01/16/19 01/16/19 01/17/19 06:59 18:59 06:59 Intake Total 300 180 Balance 300 180 Intake: Oral 300 180 Other: # Voids 2 2 1 # Bowel Movements 0 1 0 Active Medications: Current Medications Al Hydrox/Mg Hydrox/Simethicone (Maalox) 30 ml PO PRN PRN PRN Reason: GI DISTRESS Stop: 03/05/19 23:49 Divalproex Sodium (Depakote Dr) 250 mg PO AC [facility] Stop: 03/06/19 16:29 Last Admin: 01/16/19 17:49 Dose: 250 mg Docusate Sodium (Colace) 250 mg PO DAILY [facility] Stop: 03/06/19 08:59 Last Admin: 01/16/19 09:36 Dose: Not Given Famotidine (Pepcid) 40 mg PO DAILY [facility] Stop: 03/06/19 08:59 Last Admin: 01/16/19 09:14 Dose: 40 mg Levetiracetam (Keppra) 500 mg PO BID [facility] Stop: 03/06/19 08:59 Last Admin: 01/16/19 17:49 Dose: 500 mg Magnesium Hydroxide (Milk Of Magnesia) 30 ml PO HS PRN PRN Reason: Constipation Stop: 03/05/19 23:53 Metoprolol Tartrate (Lopressor) 50 mg PO BID [facility] Stop: 03/06/19 08:59 Last Admin: 01/16/19 17:50 Dose: 50 mg Quetiapine Fumarate (Seroquel) 300 mg PO HS [facility]; Protocol Stop: 03/16/19 20:59 Last Admin: 01/15/19 20:50 Dose: 300 mg Risperidone (Risperdal) 3 mg PO BID [facility] Stop: 03/10/19 16:59 Last Admin: 01/16/19 17:49 Dose: 3 mg General: demented HEENT: NC/AT, PERRLA, EOMI, anicteric sclerae, throat clear Neck: Supple, No JVD, No thyromegaly, +2 carotid pulse wo bruit, No LAD Cardiovascular: RRR, Normal S1, Normal S2, without murmur Abdomen: soft, non-tender, non-distended Neurological: no change - Procedures Procedures: Procedures Procedure Code Date GROUP PSYCHOTHERAPY 88103 07/16/15 GROUP PSYCHOTHERAPY GZHZZZZ 07/16/15 INDIVID PSYCHOTHERAP NEC 94.39 09/06/13 OTHER GROUP THERAPY 94.44 05/03/14 RECREATIONAL THERAPY 93.81 08/25/12 Internal Medicine Assmt/Plan - Assessment Assessment: 1.HTN. 2.SEIZURE DISORDER. 3.DJD. 4.PSYCHOSIS. - Plan Plan: CONTINUE ON CURRENT MEDICATION AND DIET. Nutritional Asmnt/Malnutr-PDOC - Dietary Evaluation Malnutrition Findings (Please click <Entered> for more info): Nutritional Asmnt/Malnutrition Start: 01/05/19 10: 04 Text: Status: Complete Freq: Protocol: Document 01/08/19 19:22 LCHENG (Rec: 01/08/19 19:26 LCHENG [id number]) Nutritional Asmnt/Malnutrition Patient General Information Nutritional Screening Moderate Risk Diagnosis paranoid schizophrenia, depression Pertinent Medical Hx/Surgical Hx HTN, DM, CVA/TIA, dyslipidemia , PUD/GERD, seizures, arthritis, dementia, paranoid schizophrenia, depression Subjective Information Pt seen resting in room at time of visit. Per EMR, PO intake 100%. Current Diet Order/ Nutrition Support NCS, chopped Pertinent Medications colace, pepcid, seroquel Pertinent Labs 4/4 Glucose 125, Alb 4.1 Nutritional Hx/Data Height 1.57 m Height (Calculated Centimeters) 157.5 Current Weight (lbs) 58.967 kg Weight (Calculated Kilograms) 59.0 Weight (Calculated Grams) 51131.0 [place] Body Weight 110 Body Mass Index (BMI) 23.8 Weight Status Approriate GI Symptoms GI Symptoms None Last BM 4/6 Difficult in: None Skin Integrity/Comment: intact Current %PO Good (75-100%) Estimated Nutritional Goals BEE in Kcals: Using Current wt Calories/Kcals/Kg 25-30 Kcals Calculated 8241-3915 Protein: Using Current wt Protein g/k Protein Calculated 59 Fluid: ml 1475-1770ml (1ml/kcal) Nutritional Problem No current Nutrition Prob Problem n/A Malnutrition Alert Is there a minimum of two criteria No selected? Query Text:Check all the applicable criteria. A minimum of two criteria are recommended for diagnosis of either severe or non-severe malnutrition. Malnutrition Related to Morbid Obesity Malnutrition related to morbid obesity No Intervention/Recommendation Comments 1. Continue with NCS chopped diet as ordered. 2. Monitor PO intake, wt, labs and skin integrity 3. F/U as low risk in 7 days Expected Outcomes/Goals Expected Outcomes/Goals 1. PO intake to meet at least 75% of nutritional needs. 2. Wt stability, skin to remain intact, labs to approach WNL.
[2019-01-17] MEDS: Multivitamin w/ Minerals Tab PO SCH (09:18)
--- NOTE | 2019-01-22 12:16 | Discharge Summary ---
DATE OF DISCHARGE: ADDENDUM Apparently the patient was not discharged yesterday, the patient was not ready for that, but today he is ready. He is sleeping well. He is eating well. He denies any intent to harm himself or anybody. He denies any auditory or visual hallucination or paranoia. He denies any current side effects with the medication, no sedation, no nausea, no extrapyramidal symptoms. The patient will be going to [employer] [place] and that is where he said he used to be. The patient will follow up with psychiatrist. DISCHARGE DIAGNOSES AND PLAN: Same like I dictated yesterday and the patient will be discharged hopefully today. [facility]# [id number]
== END 2019-01-17 15:00 | DRG 885 ==
LOC: ER 20:02 → GERO 22:05
PROVIDERS: ADMIT Psychiatry & Neurology Psychiatry; ATTEND Psychiatry & Neurology Psychiatry
DX: F25.9 Schizoaffective disorder, unspecified (principal); I10 Essential (primary) hypertension; G40.909 Epilepsy, unspecified, not intractable, without status epilepticus; M19.90 Unspecified osteoarthritis, unspecified site; E11.9 Type 2 diabetes mellitus without complications; E78.5 Hyperlipidemia, unspecified; K21.9 Gastro-esophageal reflux disease without esophagitis; F03.90 Unspecified dementia, unspecified severity, without behavioral disturbance, psychotic disturbance, mood disturbance, and anxiety; F32.9 Major depressive disorder, single episode, unspecified; Z88.8 Allergy status to other drugs, medicaments and biological substances; Z86.73 Personal history of transient ischemic attack (TIA), and cerebral infarction without residual deficits
CPT/HCPCS: 36415-UA; 80053-TC; 80061-TC; 80164-TC; 80307; 80320-TC; 80329-TC; 81003-TC; 83036-90; 84443-TC; 85025-TC; 86592-TC; 93005; G0410; Z7610

== ENCOUNTER 2019-06-15 20:34 | Inpatient (IN) | payer MEDICARE, MEDICAID ==
[2019-06-15 20:47] VITALS: BP 121/75
--- NOTE | 2019-06-15 21:11 | ED Physician Chart ---
ED Chief Complaint/HPI - Patient Information Date Seen:: 06/15/19 Time Seen:: 21:05 Chief Complaint:: agigtation History of Present Illness:: this is a 69 yo male who was sent to this er for evaluation and treatment for his behavior of agigtation and hallucinations. the patient is confused at times and does not give a reliable history. Allergies:: Allergies Allergy/AdvReac Type Severity Reaction Status Date / Time fluphenazine Allergy Verified 11/10/17 17:12 trifluoperazine Allergy Verified 11/10/17 18:11 [From Stelazine] Vitals:: Vital Signs - 8 hr 06/15/19 20:47 BP 121/75 Historian:: Medical Records Review:: Nurse's Note Reviewed, Old Chart Reviewed ED Review of Systems - Review of Systems General/Constitutional: No fever, No chills, No weight loss, No weakness, No diaphoresis, No edema, No loss of appetite, Other (the patient is not able to give a review of systems) Skin: No skin lesions, No rash, No bruising Head: No headache, No light-headedness Eyes: No loss of vision, No pain, No diplopia ENT: No earache, No nasal drainage, No sore throat, No tinnitus Neck: No neck pain, No swelling, No thyromegaly, No stiffness, No mass noted Cardio Vascular: No chest pain, No palpitations, No PND, No orthopnea, No edema Pulmonary: No SOB, No cough, No sputum, No wheezing GI: No nausea, No vomiting, No diarrhea, No pain, No melena, No hematochezia, No constipation, No hematemesis G/U: No dysuria, No frequency, No hematuria Musculoskeletal: No bone or joint pain, No back pain, No muscle pain Endocrine: No polyuria, No polydipsia Psychiatric: No prior psych history, No depression, No anxiety, No suicidal ideation Hematopoietic: No bruising, No lymphadenopathy Allergic/Immuno: No urticaria, No angioedema Neurological: No syncope, No focal symptoms, No weakness, No paresthesia, No headache, No seizure, No dizziness, No confusion, No vertigo ED Past Medical History - Past Medical History Obtainable: Yes Past Medical History: HTN, DM, CVA/TIA, Dyslipidemia, PUD/GERD, Seizures, Arthritis, Dementia, Other (schizophrenia) Family History: None Social History: Non Smoker, No Alcohol, No Drug Use, Care Facility Surgical History: None Psychiatricy History: Depression, Schizophrenia, Dementia Medication: Reviewed Family Medical History - Family Member Mother History Unknown: Yes Ethnicity: Unknown Living Status: Unknown Hx Family Coronary Artery Disease: (NONE) Hx Family Congestive Heart Failure: (NONE) ED Physical Exam - Physical Examination General/Constitutional: Awake, Well-developed, well-nourished, Alert, No distress, GCS 15, Non-toxic appearing, Ambulatory Head: Atraumatic Eyes: Lids, conjuctiva normal, PERRL, EOMI Skin: Nl inspection, No rash, No skin lesions, No ecchymosis, Well hydrated, No lymphadenopathy ENMT: External ears, nose nl, Nasal exam nl, Lips, teeth, gums nl Neck: Nontender, Full ROM w/o pain, No JVD, No nuchal rigidity, No bruit, No mass, No stridor Respiratory: Nl effort/Exclusion, Clear to Auscultation, No Wheeze/Rhonchi/Rales Cardio Vascular: RRR, No murmur, gallop, rubs, NL S1 S2 GI: No tenderness/rebounding/guarding, No organomegaly, No hernia, Normal BS's, Nondistended, No mass/bruits, No McBurney tenderness : No CVA tenderness Extremities: No tenderness or effusion, Full ROM, normal strength in all extremities, No edema, Normal digits & nails Neuro/Psych: Alert/oriented, DTR's symmetric, Normal sensory exam, Normal motor strength, Judgement/insight normal (poor insight and judgement, confused), Mood normal, Normal gait, No focal deficits Misc: Normal back, No paraspinal tenderness ED Labs/Radiology/EKG Results - Lab Results Results: Abnormal Lab Results 06/15/19 06/15/19 06/15/19 21:18 21:18 21:18 WBC 5.9 RBC 4.59 Hgb 13.4 Hct 40.1 L MCV 87.4 MCH 29.1 MCHC Differential 33.3 RDW 15.6 Plt Count 237 MPV 8.0 Neutrophils % 55.1 Lymphocytes % 32.5 Monocytes % 9.6 Eosinophils % 2.4 Basophils % 0.4 Sodium Potassium Chloride Carbon Dioxide Anion Gap BUN Creatinine Est GFR ( Amer) Est GFR (Non-Af Amer) BUN/Creatinine Ratio Glucose Calcium Total Bilirubin AST ALT Alkaline Phosphatase Troponin I < 0.01 L Total Protein Albumin Globulin Albumin/Globulin Ratio TSH 2.90 06/15/19 21:18 WBC RBC Hgb Hct MCV MCH MCHC Differential RDW Plt Count MPV Neutrophils % Lymphocytes % Monocytes % Eosinophils % Basophils % Sodium 139 Potassium 4.4 Chloride 102 Carbon Dioxide 28.2 Anion Gap 13.2 BUN 15 Creatinine 1.0 Est GFR ( Amer) > 60.0 Est GFR (Non-Af Amer) > 60.0 BUN/Creatinine Ratio 15.0 Glucose 118 H Calcium 9.3 Total Bilirubin 0.3 AST 15 ALT 8 Alkaline Phosphatase 52 Troponin I Total Protein 7.3 Albumin 4.2 Globulin 3.1 Albumin/Globulin Ratio 1.4 TSH - Radiology Results Results: chest x-ray = nad - EKG Interpretations EKG Time:: 20:51 Rate & Rhythm: rate =82, sinus, and no ectopy [place]: right axis ED Assessment - Assessment General Assessment: psychosis ED Septic Shock - . Is Septic Shock (SBP<90, OR Lactate>4 mmol\L) present?: No - <6hrs of presentation: Vital Signs: Vital Signs - 8 hr 06/15/19 20:47 BP 121/75 ED Reassessment (Disposition) - Reassessment Reassessment Condition:: Unchanged - Diagnosis Diagnosis:: agigtation - Patient Disposition Discharge/Transfer:: Acute Care w/in this hosp Admitting Medical Physician:: Thierry Bedoya Admitting Psych Physician:: Libertad Hickey Condition at Disposition:: Unchanged
[2019-06-15 21:32] LABS: % BASOPHILS 0.4 % (0.0-2.0); % EOSINOPHILS 2.4 % (0.0-5.0); % LYMPHOCYTES 32.5 % (20.0-50.0); % MONOCYTES 9.6 % (2.0-10.0); % NEUTROPHILS 55.1 % (40.0-80.0); EOSINOPHILE ABSOLUTE 0.1 Th/cmm (0.1-0.4); HEMATOCRIT 40.1 % (41.0-60); HEMOGLOBIN 13.4 gm/dL (12-16); LYMPHOCYTE ABSOLUTE 1.9 Th/cmm (1.5-3.0); MEAN CELL VOLUME 87.4 fl (80-99); MEAN CORPUSCULAR HEMOGLOBIN 29.1 pg (27.0-31.0); MEAN CORPUSCULAR HGB CONC 33.3 pg (28.0-36.0); MONOCYTE ABSOLUTE 0.6 Th/cmm (0.3-1.0); NEUTROPHILE ABSOLUTE 3.3 Th/cmm (1.8-8.0); PLATELET COUNT 237 Th/cmm (150-400); RED BLOOD COUNT 4.59 Mil/cmm (3.80-5.80); RED CELL DISTRIBUTION WIDTH 15.6 % (11.5-20.0); WHITE BLOOD COUNT 5.9 Th/cmm (4.8-10.8)
[2019-06-15 21:44] LABS: ALB/GLOB RATIO 1.4 (1.0-1.8); ALBUMIN 4.2 gm/dL (4.2-5.5); ALKALINE PHOSPHATASE 52 U/L (34-104); ANION GAP 13.2 (7.0-16.0); BILIRUBIN,TOTAL 0.3 mg/dL (0.3-1.0); BUN - UREA NITROGEN 15 mg/dL (7-25); CALCIUM SERUM 9.3 mg/dL (8.6-10.3); CARBON DIOXIDE 28.2 mEq/L (21.0-31.0); CHLORIDE 102 mEq/L (98-107); GFR AFRICAN-AMERICAN > 60.0 ml/min (>90); GFR NON AFRICAN-AMERICAN > 60.0 ml/min; GLUCOSE 118 mg/dL (70-105); POTASSIUM SERUM 4.4 mEq/L (3.5-5.1); SGOT 15 U/L (13-39); SGPT/ALT 8 U/L (7-52); SODIUM SERUM 139 mEq/L (136-145); TOTAL PROTEIN,SERUM 7.3 gm/dL (6.0-8.3)
[2019-06-15] MEDS ORDERED: Maalox 30 mL Cup PO PRN (23:50)
[2019-06-15] MEDS ORDERED: Magnesium Hydroxide (MOM) 30 mL UDC PO PRN (23:50)
[2019-06-16 05:30] LABS: CHOLESTEROL 207 mg/dL (<200); HDL -HIGH DENSITY LIPOPROTEIN 60 mg/dL (23-92); TRIGLYCERIDES 165 mg/dL (<150)
[2019-06-16] MEDS: Multivitamin Tab PO SCH (08:49)
--- NOTE | 2019-06-16 09:39 | Diagnostic Imaging Report ---
Portable chest x-ray Time: 21 hours Prior exam 05/28/2017 History: Chest pain Allowing for portable technique the heart size is normal. No focal pulmonary parenchymal processes. No hilar or mediastinal abnormalities. Impression: No acute abnormalities.
--- NOTE | 2019-06-16 21:27 | Transfer Summary ---
DATE OF TRANSFER: 06/15/2019 CHIEF COMPLAINT: Confusion and agitation. HISTORY OF PRESENT ILLNESS: A 69-year-old male with past medical history significant for hypertension, seizure disorder, degenerative joint disease, psychosis, came in for evaluation and treatment. The patient is a poor historian. Denies any medical complaints. PAST MEDICAL HISTORY: The patient has history of hypertension, degenerative joint disease, seizure disorder, psychosis. PAST SURGICAL HISTORY: The patient has no recent surgery. ALLERGIES: THE PATIENT HAS ALLERGY TO FLUPHENAZINE. SOCIAL HISTORY: No tobacco, alcohol or illicit drug use. FAMILY HISTORY: Noncontributory. REVIEW OF SYSTEMS: IMMUNOLOGIC: No recurrent infection. CARDIOVASCULAR: The patient does have hypertension. No known heart disease. GASTROINTESTINAL: No nausea, vomiting, diarrhea. ENDOCRINE: No diabetes or thyroid disorder. NEUROLOGIC: No seizure or stroke. HEMATOLOGIC: No bleeding or clotting disorder. PHYSICAL EXAMINATION: GENERAL: The patient is awake and alert, in no acute distress. VITAL SIGNS: Temperature 97.5, pulse 80, respirations 20, blood pressure 115/87. HEENT: Pupils equally round, anicteric sclerae. NECK: Supple, no JVD, mass or bruit. LUNGS: Clear to auscultation. HEART: S1, S2. Regular rate and rhythm. ABDOMEN: Soft, nontender, positive bowel sounds. EXTREMITIES: No clubbing, cyanosis or edema. NEUROLOGIC: Moves all extremities equally. The patient is ambulatory. LABORATORY DATA: CBC and chemistry are unremarkable. IMPRESSION: 1. Psychosis. 2. Hypertension. 3. Seizure disorder. 4. Degenerative joint disease. PLAN: Continue patient's present medications and admitted under psychiatric services for psychologic treatment. The patient has no active medical problems, medically cleared to participate in activities. Continue patient's seizure medication. JOB# [id number]
--- NOTE | 2019-06-16 22:20 | Psychiatric Evaluation ---
DATE OF SERVICE: 06/16/2019 HISTORY OF PRESENT ILLNESS: A 69-year-old male, currently in the hospital, agitation, hallucinations, confusion. The patient states he is in the hospital for "voices." They say straight crazy stuff to me, "I'm boxed in, closed in." The patient is in distress, very depressed about the voices, periods of social withdrawal, very suspicious, believing that demons are after him and constantly praying, kneeling, ongoing paranoia. PAST PSYCHIATRIC HISTORY: Admissions in the past for schizophrenia. SOCIAL HISTORY: Born in [place], not , no kids. He states that he lives in "a group home house." MEDICATIONS: Noted. MENTAL STATUS EXAMINATION: Stated age. Fair eye contact. Speech within normal limits. Mood "scared." Affect constricted. Thought processes were tangential. No overt SI or HI, but voices delusions. Fair insight. He wants help. PROVISIONAL DIAGNOSIS: Schizophrenia. MEDICAL: Please see full H and P. RECOMMENDATIONS AND PLAN: We will continue Risperdal and Seroquel; we will consider dose titration. TREATMENT PLAN: Includes group as well as milieu therapy. CONDITIONS FOR DISCHARGE: Improved mood, improved affect, better control of any psychotic symptoms. ESTIMATED LENGTH OF STAY: 7-10 days. JOB# [id number]
[2019-06-17 08:13] LABS: EOSINOPHILE ABSOLUTE 0.2 Th/cmm (0.1-0.4)
[2019-06-17 08:15] LABS: % BASOPHILS 0.1 % (0.0-2.0); % EOSINOPHILS 2.2 % (0.0-5.0); % NEUTROPHILS 59.7 % (40.0-80.0); HEMATOCRIT 42.1 % (41.0-60); HEMOGLOBIN 14.1 gm/dL (12-16); MEAN CELL VOLUME 86.2 fl (80-99); MEAN CORPUSCULAR HEMOGLOBIN 28.9 pg (27.0-31.0); MEAN CORPUSCULAR HGB CONC 33.5 pg (28.0-36.0); MONOCYTE ABSOLUTE 0.8 Th/cmm (0.3-1.0); NEUTROPHILE ABSOLUTE 4.3 Th/cmm (1.8-8.0); PLATELET COUNT 239 Th/cmm (150-400); RED BLOOD COUNT 4.89 Mil/cmm (3.80-5.80); RED CELL DISTRIBUTION WIDTH 15.8 % (11.5-20.0); WHITE BLOOD COUNT 7.3 Th/cmm (4.8-10.8)
[2019-06-17 08:16] LABS: A1C 5.6 % (4.8-5.6)
[2019-06-17 08:41] LABS: ALB/GLOB RATIO 1.3 (1.0-1.8); ALBUMIN 3.9 gm/dL (4.2-5.5); ALKALINE PHOSPHATASE 61 U/L (34-104); ANION GAP 11.3 (7.0-16.0); BILIRUBIN,TOTAL 0.5 mg/dL (0.3-1.0); BUN - UREA NITROGEN 10 mg/dL (7-25); CALCIUM SERUM 9.2 mg/dL (8.6-10.3); CARBON DIOXIDE 27.7 mEq/L (21.0-31.0); CHLORIDE 101 mEq/L (98-107); CREATININE - SERUM 0.8 mg/dL (0.7-1.3); GFR AFRICAN-AMERICAN > 60.0 ml/min (>90); GFR NON AFRICAN-AMERICAN > 60.0 ml/min; GLUCOSE 120 mg/dL (70-105); SGOT 15 U/L (13-39); SGPT/ALT 7 U/L (7-52); SODIUM SERUM 136 mEq/L (136-145); TOTAL PROTEIN,SERUM 6.9 gm/dL (6.0-8.3)
[2019-06-17] MEDS: Multivitamin Tab PO SCH (09:23)
--- NOTE | 2019-06-17 09:53 | Progress Notes ---
DATE: 06/17/2019 SUBJECTIVE: The patient in the hospital, noted to be agitated, confused, disoriented, voices. The patient is still attesting to voices, endorsing psychological distress, turmoil, stating he wants the voices to stop, irritated this morning. Says a few brief words to me and then goes back to sleep, does not want to be bothered right now. Per staff, the patient is still talking about delusions, still very odd, mostly keeps to self, mumbling to self. MEDICATIONS: Her medications are noted. PLAN: We will continue dosing of Risperdal and Seroquel. Consider tapering. JOB# [id number]
--- NOTE | 2019-06-17 16:19 | General Progress Note ---
Subjective - Review of Systems Service Date: 06/17/19 Subjective: resting comfortably no distress Objective - Results Result Diagrams: 06/17/19 08:00 06/17/19 08:00 Recent Labs: Laboratory Last Values WBC 7.3 Th/cmm (4.8-10.8) 06/17/19 08:00 RBC 4.89 Mil/cmm (3.80-5.80) 06/17/19 08:00 Hgb 14.1 gm/dL (12-16) 06/17/19 08:00 Hct 42.1 % (41.0-60) 06/17/19 08:00 MCV 86.2 fl (80-99) 06/17/19 08:00 MCH 28.9 pg (27.0-31.0) 06/17/19 08:00 MCHC Differential 33.5 pg (28.0-36.0) 06/17/19 08:00 RDW 15.8 % (11.5-20.0) 06/17/19 08:00 Plt Count 239 Th/cmm (150-400) 06/17/19 08:00 MPV 8.0 fl 06/17/19 08:00 Neutrophils % 59.7 % (40.0-80.0) 06/17/19 08:00 Lymphocytes % 27.0 % (20.0-50.0) 06/17/19 08:00 Monocytes % 11.0 % (2.0-10.0) H 06/17/19 08:00 Eosinophils % 2.2 % (0.0-5.0) 06/17/19 08:00 Basophils % 0.1 % (0.0-2.0) 06/17/19 08:00 Sodium 136 mEq/L (136-145) 06/17/19 08:00 Potassium 4.0 mEq/L (3.5-5.1) 06/17/19 08:00 Chloride 101 mEq/L (98-107) 06/17/19 08:00 Carbon Dioxide 27.7 mEq/L (21.0-31.0) 06/17/19 08:00 Anion Gap 11.3 (7.0-16.0) 06/17/19 08:00 BUN 10 mg/dL (7-25) 06/17/19 08:00 Creatinine 0.8 mg/dL (0.7-1.3) 06/17/19 08:00 Est GFR ( Amer) > 60.0 ml/min (>90) 06/17/19 08:00 Est GFR (Non-Af Amer) > 60.0 ml/min 06/17/19 08:00 BUN/Creatinine Ratio 12.5 06/17/19 08:00 Glucose 120 mg/dL (70-105) H 06/17/19 08:00 Calcium 9.2 mg/dL (8.6-10.3) 06/17/19 08:00 Total Bilirubin 0.5 mg/dL (0.3-1.0) 06/17/19 08:00 AST 15 U/L (13-39) 06/17/19 08:00 ALT 7 U/L (7-52) 06/17/19 08:00 Alkaline Phosphatase 61 U/L (34-104) 06/17/19 08:00 Troponin I < 0.01 ng/mL (0.01-0.05) L 06/15/19 21:18 Total Protein 6.9 gm/dL (6.0-8.3) 06/17/19 08:00 Albumin 3.9 gm/dL (4.2-5.5) L 06/17/19 08:00 Globulin 3.0 gm/dL 06/17/19 08:00 Albumin/Globulin Ratio 1.3 (1.0-1.8) 06/17/19 08:00 Triglycerides 165 mg/dL (<150) H 06/15/19 05:15 Cholesterol 207 mg/dL (<200) H 06/15/19 05:15 LDL Cholesterol Direct 141 mg/dL (75-193) 06/15/19 05:15 HDL Cholesterol 60 mg/dL (23-92) 06/15/19 05:15 TSH 2.26 uIU/ml (0.34-5.60) 06/17/19 08:00 - Physical Exam Vitals and I&O: Vital Signs Temp 97.7 F 06/17/19 14:52 Pulse 80 06/17/19 14:52 Resp 20 06/17/19 14:52 BP 115/73 06/17/19 14:52 Pulse Ox 95 06/17/19 14:52 Intake & Output 06/16/19 06/17/19 06/17/19 18:59 06:59 18:59 Intake Total 1300 240 Balance 1300 240 Intake: Oral 1300 240 Other: # Voids 3 1 # Bowel Movements 0 Active Medications: Current Medications Acetaminophen (Tylenol) 650 mg PO Q4HR PRN PRN Reason: Mild Pain / Temp above 100 Stop: 08/14/19 23:49 Al Hydrox/Mg Hydrox/Simethicone (Maalox) 30 ml PO Q4HR PRN PRN Reason: GI DISTRESS Stop: 08/14/19 23:49 Divalproex Sodium (Depakote Dr) 250 mg PO AC [facility]; Protocol Stop: 08/15/19 07:29 Last Admin: 06/17/19 12:11 Dose: 250 mg Docusate Sodium (Colace) 250 mg PO DAILY [facility] Stop: 08/15/19 08:59 Last Admin: 06/17/19 09:22 Dose: 250 mg Famotidine (Pepcid) 40 mg PO DAILY [facility] Stop: 08/15/19 08:59 Last Admin: 06/17/19 09:22 Dose: 40 mg Levetiracetam (Keppra) 500 mg PO BID [facility] Stop: 08/15/19 08:59 Last Admin: 06/17/19 09:22 Dose: 500 mg Lorazepam (Ativan) 0.5 mg PO Q4HR PRN; Protocol PRN Reason: Anxiety Stop: 07/15/19 23:49 Last Admin: 06/17/19 10:34 Dose: 0.5 mg Magnesium Hydroxide (Milk Of Magnesia) 30 ml PO HS PRN PRN Reason: Constipation Metoprolol Tartrate (Lopressor) 50 mg PO BID [facility] Stop: 08/15/19 08:59 Last Admin: 06/17/19 09:27 Dose: 50 mg Multivitamins/Vitamin C (Theragran) 1 tab PO DAILY [facility] Stop: 08/15/19 08:59 Last Admin: 06/17/19 09:23 Dose: 1 tab Quetiapine Fumarate (Seroquel) 300 mg PO HS [facility]; Protocol Stop: 08/15/19 20:59 Last Admin: 06/16/19 20:50 Dose: 300 mg Risperidone (Risperdal) 3 mg PO BID [facility]; Protocol Stop: 08/15/19 08:59 Last Admin: 06/17/19 09:23 Dose: 3 mg Zolpidem Tartrate (Ambien) 5 mg PO HS PRN PRN Reason: Insomnia Stop: 08/14/19 23:49 Last Admin: 06/16/19 20:50 Dose: 5 mg General: No acute distress HEENT: PERRLA Neck: Supple, JVD Cardiovascular: Regular rate, Normal S1, Normal S2 Lungs: Clear to auscultation Abdomen: Bowel sounds, Soft - Procedures Procedures: Procedures Procedure Code Date GROUP PSYCHOTHERAPY 11086 07/16/15 GROUP PSYCHOTHERAPY GZHZZZZ 07/16/15 [facility] PSYCHOTHERAP NEC 94.39 09/06/13 OTHER GROUP THERAPY 94.44 05/03/14 RECREATIONAL THERAPY 93.81 08/25/12 Assessment/Plan - Problem List Patient Problems: All Active Problems Agitation (Acute) R45.1 - Assessment Assessment: HTN Seizure d/o psychosis DJD - Plan Plan: continue current treatment
[2019-06-18] MEDS: Multivitamin Tab PO SCH (08:33)
--- NOTE | 2019-06-18 20:57 | Internal Medicine Prog Note ---
Internal Medicine Subjective - Subjective Service Date: 06/18/19 Patient seen and examined:: with staff (HE IS VERY CONFUSED) Patient is:: awake, verbal, in bed, confused Per staff patient has:: no adverse event Internal Medicine Objective - Results Result Diagrams: 06/17/19 08:00 06/17/19 08:00 Recent Labs: Laboratory Last Values WBC 7.3 Th/cmm (4.8-10.8) 06/17/19 08:00 RBC 4.89 Mil/cmm (3.80-5.80) 06/17/19 08:00 Hgb 14.1 gm/dL (12-16) 06/17/19 08:00 Hct 42.1 % (41.0-60) 06/17/19 08:00 MCV 86.2 fl (80-99) 06/17/19 08:00 MCH 28.9 pg (27.0-31.0) 06/17/19 08:00 MCHC Differential 33.5 pg (28.0-36.0) 06/17/19 08:00 RDW 15.8 % (11.5-20.0) 06/17/19 08:00 Plt Count 239 Th/cmm (150-400) 06/17/19 08:00 MPV 8.0 fl 06/17/19 08:00 Neutrophils % 59.7 % (40.0-80.0) 06/17/19 08:00 Lymphocytes % 27.0 % (20.0-50.0) 06/17/19 08:00 Monocytes % 11.0 % (2.0-10.0) H 06/17/19 08:00 Eosinophils % 2.2 % (0.0-5.0) 06/17/19 08:00 Basophils % 0.1 % (0.0-2.0) 06/17/19 08:00 Sodium 136 mEq/L (136-145) 06/17/19 08:00 Potassium 4.0 mEq/L (3.5-5.1) 06/17/19 08:00 Chloride 101 mEq/L (98-107) 06/17/19 08:00 Carbon Dioxide 27.7 mEq/L (21.0-31.0) 06/17/19 08:00 Anion Gap 11.3 (7.0-16.0) 06/17/19 08:00 BUN 10 mg/dL (7-25) 06/17/19 08:00 Creatinine 0.8 mg/dL (0.7-1.3) 06/17/19 08:00 Est GFR ( Amer) > 60.0 ml/min (>90) 06/17/19 08:00 Est GFR (Non-Af Amer) > 60.0 ml/min 06/17/19 08:00 BUN/Creatinine Ratio 12.5 06/17/19 08:00 Glucose 120 mg/dL (70-105) H 06/17/19 08:00 Calcium 9.2 mg/dL (8.6-10.3) 06/17/19 08:00 Total Bilirubin 0.5 mg/dL (0.3-1.0) 06/17/19 08:00 AST 15 U/L (13-39) 06/17/19 08:00 ALT 7 U/L (7-52) 06/17/19 08:00 Alkaline Phosphatase 61 U/L (34-104) 06/17/19 08:00 Troponin I < 0.01 ng/mL (0.01-0.05) L 06/15/19 21:18 Total Protein 6.9 gm/dL (6.0-8.3) 06/17/19 08:00 Albumin 3.9 gm/dL (4.2-5.5) L 06/17/19 08:00 Globulin 3.0 gm/dL 06/17/19 08:00 Albumin/Globulin Ratio 1.3 (1.0-1.8) 06/17/19 08:00 Triglycerides 165 mg/dL (<150) H 06/15/19 05:15 Cholesterol 207 mg/dL (<200) H 06/15/19 05:15 LDL Cholesterol Direct 141 mg/dL (75-193) 06/15/19 05:15 HDL Cholesterol 60 mg/dL (23-92) 06/15/19 05:15 TSH 2.26 uIU/ml (0.34-5.60) 06/17/19 08:00 - Physical Exam Vitals and I&O: Vital Signs Temp 98.0 F 06/18/19 20:16 Pulse 78 06/18/19 20:16 Resp 19 06/18/19 20:16 BP 108/68 09/16/19 20:16 Pulse Ox 97 06/18/19 20:16 Intake & Output 06/18/19 06/18/19 06/19/19 06:59 18:59 06:59 Intake Total 180 1000 240 Balance 180 1000 240 Intake: Oral 180 1000 240 Other: # Voids 1 4 2 # Bowel Movements 0 1 Active Medications: Current Medications Acetaminophen (Tylenol) 650 mg PO Q4HR PRN PRN Reason: Mild Pain / Temp above 100 Stop: 08/14/19 23:49 Al Hydrox/Mg Hydrox/Simethicone (Maalox) 30 ml PO Q4HR PRN PRN Reason: GI DISTRESS Stop: 08/14/19 23:49 Divalproex Sodium (Depakote Dr) 250 mg PO AC [facility]; Protocol Stop: 08/15/19 07:29 Last Admin: 06/18/19 17:34 Dose: 250 mg Docusate Sodium (Colace) 250 mg PO DAILY [facility] Stop: 08/15/19 08:59 Last Admin: 06/18/19 08:33 Dose: 250 mg Famotidine (Pepcid) 40 mg PO DAILY [facility] Stop: 08/15/19 08:59 Last Admin: 06/18/19 08:34 Dose: 40 mg Levetiracetam (Keppra) 500 mg PO BID [facility] Stop: 08/15/19 08:59 Last Admin: 06/18/19 17:34 Dose: 500 mg Lorazepam (Ativan) 0.5 mg PO Q4HR PRN; Protocol PRN Reason: Anxiety Stop: 07/15/19 23:49 Last Admin: 06/18/19 20:37 Dose: 0.5 mg Magnesium Hydroxide (Milk Of Magnesia) 30 ml PO HS PRN PRN Reason: Constipation Metoprolol Tartrate (Lopressor) 50 mg PO BID [facility] Stop: 08/15/19 08:59 Last Admin: 06/18/19 17:34 Dose: Not Given Multivitamins/Vitamin C (Theragran) 1 tab PO DAILY [facility] Stop: 08/15/19 08:59 Last Admin: 06/18/19 08:33 Dose: 1 tab Quetiapine Fumarate (Seroquel) 300 mg PO HS [facility]; Protocol Stop: 08/15/19 20:59 Last Admin: 06/18/19 20:37 Dose: 300 mg Risperidone (Risperdal) 3 mg PO BID [facility]; Protocol Stop: 08/15/19 08:59 Last Admin: 06/18/19 17:34 Dose: 3 mg Zolpidem Tartrate (Ambien) 5 mg PO HS PRN PRN Reason: Insomnia Stop: 08/14/19 23:49 Last Admin: 06/17/19 21:38 Dose: 5 mg General: demented HEENT: NC/AT, PERRLA, EOMI, anicteric sclerae, throat clear Neck: Supple, No JVD, No thyromegaly, +2 carotid pulse wo bruit, No LAD Lungs: CTAB Cardiovascular: RRR, Normal S1, Normal S2, without murmur Abdomen: soft, non-tender, non-distended Extremities: clear Neurological: no change - Procedures Procedures: Procedures Procedure Code Date GROUP PSYCHOTHERAPY 05852 07/16/15 GROUP PSYCHOTHERAPY GZHZZZZ 07/16/15 INDIVID PSYCHOTHERAP NEC 94.39 09/06/13 OTHER GROUP THERAPY 94.44 05/03/14 RECREATIONAL THERAPY 93.81 08/25/12 Internal Medicine Assmt/Plan - Assessment Assessment: 1.HTN. 2.SEIZURE DISORDER. 3.DJD. 4.PSYCHOSIS - Plan Plan: CONTINUE ON CURRENT MEDICATION AND DIET.
[2019-06-19] MEDS: Multivitamin Tab PO SCH (08:25)
--- NOTE | 2019-06-19 21:02 | Internal Medicine Prog Note ---
Internal Medicine Subjective - Subjective Service Date: 06/19/19 Patient seen and examined:: without staff (he is doing well) Patient is:: awake, verbal, in bed, confused Per staff patient has:: no adverse event Internal Medicine Objective - Results Result Diagrams: 06/17/19 08:00 06/17/19 08:00 Recent Labs: Laboratory Last Values WBC 7.3 Th/cmm (4.8-10.8) 06/17/19 08:00 RBC 4.89 Mil/cmm (3.80-5.80) 06/17/19 08:00 Hgb 14.1 gm/dL (12-16) 06/17/19 08:00 Hct 42.1 % (41.0-60) 06/17/19 08:00 MCV 86.2 fl (80-99) 06/17/19 08:00 MCH 28.9 pg (27.0-31.0) 06/17/19 08:00 MCHC Differential 33.5 pg (28.0-36.0) 06/17/19 08:00 RDW 15.8 % (11.5-20.0) 06/17/19 08:00 Plt Count 239 Th/cmm (150-400) 06/17/19 08:00 MPV 8.0 fl 06/17/19 08:00 Neutrophils % 59.7 % (40.0-80.0) 06/17/19 08:00 Lymphocytes % 27.0 % (20.0-50.0) 06/17/19 08:00 Monocytes % 11.0 % (2.0-10.0) H 06/17/19 08:00 Eosinophils % 2.2 % (0.0-5.0) 06/17/19 08:00 Basophils % 0.1 % (0.0-2.0) 06/17/19 08:00 Sodium 136 mEq/L (136-145) 06/17/19 08:00 Potassium 4.0 mEq/L (3.5-5.1) 06/17/19 08:00 Chloride 101 mEq/L (98-107) 06/17/19 08:00 Carbon Dioxide 27.7 mEq/L (21.0-31.0) 06/17/19 08:00 Anion Gap 11.3 (7.0-16.0) 06/17/19 08:00 BUN 10 mg/dL (7-25) 06/17/19 08:00 Creatinine 0.8 mg/dL (0.7-1.3) 06/17/19 08:00 Est GFR ( Amer) > 60.0 ml/min (>90) 06/17/19 08:00 Est GFR (Non-Af Amer) > 60.0 ml/min 06/17/19 08:00 BUN/Creatinine Ratio 12.5 06/17/19 08:00 Glucose 120 mg/dL (70-105) H 06/17/19 08:00 Calcium 9.2 mg/dL (8.6-10.3) 06/17/19 08:00 Total Bilirubin 0.5 mg/dL (0.3-1.0) 06/17/19 08:00 AST 15 U/L (13-39) 06/17/19 08:00 ALT 7 U/L (7-52) 06/17/19 08:00 Alkaline Phosphatase 61 U/L (34-104) 06/17/19 08:00 Troponin I < 0.01 ng/mL (0.01-0.05) L 06/15/19 21:18 Total Protein 6.9 gm/dL (6.0-8.3) 06/17/19 08:00 Albumin 3.9 gm/dL (4.2-5.5) L 06/17/19 08:00 Globulin 3.0 gm/dL 06/17/19 08:00 Albumin/Globulin Ratio 1.3 (1.0-1.8) 06/17/19 08:00 Triglycerides 165 mg/dL (<150) H 06/15/19 05:15 Cholesterol 207 mg/dL (<200) H 06/15/19 05:15 LDL Cholesterol Direct 141 mg/dL (75-193) 06/15/19 05:15 HDL Cholesterol 60 mg/dL (23-92) 06/15/19 05:15 TSH 2.26 uIU/ml (0.34-5.60) 06/17/19 08:00 - Physical Exam Vitals and I&O: Vital Signs Temp 97.7 F 06/19/19 20:07 Pulse 88 06/19/19 20:07 Resp 19 06/19/19 20:07 BP 114/85 09/17/19 20:07 Pulse Ox 97 06/19/19 20:07 Intake & Output 06/19/19 06/19/19 06/20/19 06:59 18:59 06:59 Intake Total 480 1450 240 Balance 480 1450 240 Intake: Oral 480 1450 240 Other: # Voids 2 2 # Bowel Movements 1 Active Medications: Current Medications Acetaminophen (Tylenol) 650 mg PO Q4HR PRN PRN Reason: Mild Pain / Temp above 100 Stop: 08/14/19 23:49 Al Hydrox/Mg Hydrox/Simethicone (Maalox) 30 ml PO Q4HR PRN PRN Reason: GI DISTRESS Stop: 08/14/19 23:49 Divalproex Sodium (Depakote Dr) 250 mg PO BID [facility]; Protocol Stop: 08/18/19 08:59 Last Admin: 06/19/19 17:00 Dose: 250 mg Docusate Sodium (Colace) 250 mg PO DAILY [facility] Stop: 08/15/19 08:59 Last Admin: 06/19/19 08:25 Dose: 250 mg Famotidine (Pepcid) 40 mg PO DAILY [facility] Stop: 08/15/19 08:59 Last Admin: 06/19/19 08:25 Dose: 40 mg Guaifenesin/Dextromethorphan (Robitussin Dm) 10 ml PO Q6HR PRN PRN Reason: Cough Stop: 08/18/19 16:45 Levetiracetam (Keppra) 500 mg PO BID [facility] Stop: 08/15/19 08:59 Last Admin: 06/19/19 17:00 Dose: 500 mg Lorazepam (Ativan) 0.5 mg PO Q4HR PRN; Protocol PRN Reason: Anxiety Stop: 07/15/19 23:49 Last Admin: 06/18/19 20:37 Dose: 0.5 mg Magnesium Hydroxide (Milk Of Magnesia) 30 ml PO HS PRN PRN Reason: Constipation Metoprolol Tartrate (Lopressor) 50 mg PO BID [facility] Stop: 08/15/19 08:59 Last Admin: 06/19/19 17:00 Dose: Not Given Multivitamins/Vitamin C (Theragran) 1 tab PO DAILY [facility] Stop: 08/15/19 08:59 Last Admin: 06/19/19 08:25 Dose: 1 tab Quetiapine Fumarate (Seroquel) 300 mg PO HS [facility]; Protocol Stop: 08/15/19 20:59 Last Admin: 06/19/19 20:34 Dose: 300 mg Risperidone (Risperdal) 3 mg PO BID [facility]; Protocol Stop: 08/15/19 08:59 Last Admin: 06/19/19 17:00 Dose: 3 mg Zolpidem Tartrate (Ambien) 5 mg PO HS PRN PRN Reason: Insomnia Stop: 08/14/19 23:49 Last Admin: 06/19/19 20:34 Dose: 5 mg General: demented HEENT: NC/AT, PERRLA, EOMI, anicteric sclerae, throat clear Neck: Supple, No JVD, No thyromegaly, +2 carotid pulse wo bruit, No LAD Lungs: CTAB Cardiovascular: RRR, Normal S1, Normal S2, without murmur Abdomen: soft, non-tender, non-distended Extremities: clear Neurological: no change - Procedures Procedures: Procedures Procedure Code Date GROUP PSYCHOTHERAPY 19576 07/16/15 GROUP PSYCHOTHERAPY GZHZZZZ 07/16/15 INDIVID PSYCHOTHERAP NEC 94.39 09/06/13 OTHER GROUP THERAPY 94.44 05/03/14 RECREATIONAL THERAPY 93.81 08/25/12 Internal Medicine Assmt/Plan - Assessment Assessment: 1.HTN. 2.SEIZURE DISORDER. 3.DJD. 4.PSYCHOSIS - Plan Plan: CONTINUE ON CURRENT MEDICATION AND DIET. Nutritional Asmnt/Malnutr-PDOC - Dietary Evaluation Malnutrition Findings (Please click <Entered> for more info): Nutritional Asmnt/Malnutrition Start: 06/19/19 11: 43 Text: Status: Active Freq: Protocol: Document 06/19/19 11:43 ASH (Rec: 06/19/19 11:45 ASH [email or web address]) Nutritional Asmnt/Malnutrition Patient General Information Nutritional Screening Moderate Risk Diagnosis Psychosis NOS Pertinent Medical Hx/Surgical Hx HTN, DM, CVA/TIA, Dyslipidemia , Seizures, Arthritis, Dementia, Schizophrenia Subjective Information Pt is a 69-year-old male admitted on 06/15 d/t agitation and hallucinations. Pt is eating 75-100% of meals Per Meal/Nutrition Activity Record . Dietary is currently providing an estimated 1850 kcals and 82 gm Pro, per Pt PO intake this is providing an estimated 1620 kcals and 72gm Pro to meet 100+% kcal and 100 +% Pro needs. HT: 5 FT WT: 144 LB (65.45 kg) ABW: 116 LB (52.73 kg) BMI: 28.15 (Overweight) GI: WNL, flat, soft, non- tender BM: 06/19 x1 I/O: 1480/Not Noted Skin: WNL, intact Mansoor: 20 Diet Order: Na 2gm, NCS Estimated Energy Needs: ( Geriatric, ABW) 2568-2423 kcals (25-30 kcals/ kg) 53-63g Pro (1.0-1.2 g/kg) 9202-7119 ml (25-30 ml/kg) Current Diet Order/ Nutrition Support Na 2gm, NCS Pertinent Medications Maalox (PRN), Colace, Pepcid, Keppra, MOM (PRN), Theragran Pertinent Labs 06/17: Glucose 120, Alb 3.9 Nutritional Hx/Data Height 1.52 m Height (Calculated Centimeters) 152.4 Current Weight (lbs) 65.317 kg Weight (Calculated Kilograms) 65.3 Weight (Calculated Grams) 57848.3 [place] Body Weight 106 LB (48.18 kg) % [place] Body Weight 136 Body Mass Index (BMI) 28.1 Weight Status Overweight GI Symptoms GI Symptoms None Skin Integrity/Comment: Skin: WNL, intact Mansoor: 20 Current %PO Good (75-100%) Estimated Nutritional Goals BEE in Kcals: Adj wt of IBW Calories/Kcals/Kg 25-30 Kcals Calculated 2101-7889 Protein: Adj wt of IBW Protein g/k.0-1.2 Protein Calculated 53-63 Fluid: ml 9604-1701 ml (25-30 ml/kg) Nutritional Problem 1. Problem Problem Altered nutrient utilization Etiology related to endocrine dysfunction Signs/Symptoms: aeb Hx DM, Glucose 120. Malnutrition Related to Morbid Obesity Malnutrition related to morbid obesity No Intervention/Recommendation Comments Continue with Na 2gm, NCS diet as ordered. Expected Outcomes/Goals Expected Outcomes/Goals 1. PO intake to continue to meet >75% of nutritional needs . 2. Monitor PO intake, wt, nutrition related labs, and skin integrity. 3. F/U as low risk in 7 days, 06/26
--- NOTE | 2019-06-19 23:22 | Progress Notes ---
DATE: 06/19/2019 SUBJECTIVE: Chart reviewed and the patient interviewed. Also discussed the patient's condition with the staff and reviewed records and labs. The patient seems to be slightly calmer and less irritable and less agitated. The patient also is more compliant with taking his medications with no side effect of medications. He also still needs redirections, but in general, he seems to be calmer than before, but still has mood swings. ASSESSMENT: The patient is still easily agitated and needs close monitoring. TREATMENT PLAN: We will increase Depakote to 500 mg twice a day. Also, continue Risperdal and Seroquel same dose. Also, continue adjusting psychotropic medications and working on behavioral modifications and follow up closely. [facility]# [id number]
--- NOTE | 2019-06-20 07:57 | Progress Notes ---
DATE: 06/20/2019 SUBJECTIVE: Chart reviewed and the patient interviewed. Also discussed the patient's condition with the staff and reviewed records and labs. The patient is still withdrawn and is still guarded. The patient also still seems to be preoccupied and responding to stimuli. The patient also still having mood swings according to staff and still has episodes of irritability, but easier to redirect him. Otherwise, the patient continued to comply with taking his medications with no side effects of medications. ASSESSMENT: The patient is still anxious and is still having mood swings and needs redirections. TREATMENT PLAN: We will monitor the patient's condition closely. Also, we will get a Depakote blood level. Also, continue adjusting psychotropic medications and follow up closely. The patient's gait is steady and vital signs are stable and labs were within normal. JOB# [id number]
[2019-06-20] MEDS: Guaifenesin DM 10 ML UDC PO PRN ×2 (08:23→20:53)
[2019-06-20] MEDS: Multivitamin Tab PO SCH (08:23)
--- NOTE | 2019-06-20 20:46 | Internal Medicine Prog Note ---
Internal Medicine Subjective - Subjective Service Date: 06/20/19 Patient seen and examined:: without staff (HE IS DOING WELL) Patient is:: awake, verbal, in bed, confused Per staff patient has:: no adverse event Internal Medicine Objective - Results Result Diagrams: 06/17/19 08:00 06/17/19 08:00 Recent Labs: Laboratory Last Values WBC 7.3 Th/cmm (4.8-10.8) 06/17/19 08:00 RBC 4.89 Mil/cmm (3.80-5.80) 06/17/19 08:00 Hgb 14.1 gm/dL (12-16) 06/17/19 08:00 Hct 42.1 % (41.0-60) 06/17/19 08:00 MCV 86.2 fl (80-99) 06/17/19 08:00 MCH 28.9 pg (27.0-31.0) 06/17/19 08:00 MCHC Differential 33.5 pg (28.0-36.0) 06/17/19 08:00 RDW 15.8 % (11.5-20.0) 06/17/19 08:00 Plt Count 239 Th/cmm (150-400) 06/17/19 08:00 MPV 8.0 fl 06/17/19 08:00 Neutrophils % 59.7 % (40.0-80.0) 06/17/19 08:00 Lymphocytes % 27.0 % (20.0-50.0) 06/17/19 08:00 Monocytes % 11.0 % (2.0-10.0) H 06/17/19 08:00 Eosinophils % 2.2 % (0.0-5.0) 06/17/19 08:00 Basophils % 0.1 % (0.0-2.0) 06/17/19 08:00 Sodium 136 mEq/L (136-145) 06/17/19 08:00 Potassium 4.0 mEq/L (3.5-5.1) 06/17/19 08:00 Chloride 101 mEq/L (98-107) 06/17/19 08:00 Carbon Dioxide 27.7 mEq/L (21.0-31.0) 06/17/19 08:00 Anion Gap 11.3 (7.0-16.0) 06/17/19 08:00 BUN 10 mg/dL (7-25) 06/17/19 08:00 Creatinine 0.8 mg/dL (0.7-1.3) 06/17/19 08:00 Est GFR ( Amer) > 60.0 ml/min (>90) 06/17/19 08:00 Est GFR (Non-Af Amer) > 60.0 ml/min 06/17/19 08:00 BUN/Creatinine Ratio 12.5 06/17/19 08:00 Glucose 120 mg/dL (70-105) H 06/17/19 08:00 Calcium 9.2 mg/dL (8.6-10.3) 06/17/19 08:00 Total Bilirubin 0.5 mg/dL (0.3-1.0) 06/17/19 08:00 AST 15 U/L (13-39) 06/17/19 08:00 ALT 7 U/L (7-52) 06/17/19 08:00 Alkaline Phosphatase 61 U/L (34-104) 06/17/19 08:00 Troponin I < 0.01 ng/mL (0.01-0.05) L 06/15/19 21:18 Total Protein 6.9 gm/dL (6.0-8.3) 06/17/19 08:00 Albumin 3.9 gm/dL (4.2-5.5) L 06/17/19 08:00 Globulin 3.0 gm/dL 06/17/19 08:00 Albumin/Globulin Ratio 1.3 (1.0-1.8) 06/17/19 08:00 Triglycerides 165 mg/dL (<150) H 06/15/19 05:15 Cholesterol 207 mg/dL (<200) H 06/15/19 05:15 LDL Cholesterol Direct 141 mg/dL (75-193) 06/15/19 05:15 HDL Cholesterol 60 mg/dL (23-92) 06/15/19 05:15 TSH 2.26 uIU/ml (0.34-5.60) 06/17/19 08:00 - Physical Exam Vitals and I&O: Vital Signs Temp 98.0 F 06/20/19 14:00 Pulse 98 06/20/19 16:18 Resp 20 06/20/19 14:00 BP 101/67 09/18/19 16:18 Pulse Ox 97 06/20/19 14:00 Intake & Output 06/20/19 06/20/19 06/21/19 06:59 18:59 06:59 Intake Total 480 900 Balance 480 900 Intake: Oral 480 900 Other: # Voids 2 3 # Bowel Movements 1 Active Medications: Current Medications Acetaminophen (Tylenol) 650 mg PO Q4HR PRN PRN Reason: Mild Pain / Temp above 100 Stop: 08/14/19 23:49 Al Hydrox/Mg Hydrox/Simethicone (Maalox) 30 ml PO Q4HR PRN PRN Reason: GI DISTRESS Stop: 08/14/19 23:49 Divalproex Sodium (Depakote Dr) 250 mg PO BID [facility]; Protocol Stop: 08/18/19 08:59 Last Admin: 06/20/19 16:23 Dose: 250 mg Docusate Sodium (Colace) 250 mg PO DAILY [facility] Stop: 08/15/19 08:59 Last Admin: 06/20/19 08:23 Dose: 250 mg Famotidine (Pepcid) 40 mg PO DAILY [facility] Stop: 08/15/19 08:59 Last Admin: 06/20/19 08:23 Dose: 40 mg Guaifenesin/Dextromethorphan (Robitussin Dm) 10 ml PO Q6HR PRN PRN Reason: Cough Stop: 08/18/19 16:45 Last Admin: 06/20/19 08:23 Dose: 10 ml Levetiracetam (Keppra) 500 mg PO BID [facility] Stop: 08/15/19 08:59 Last Admin: 06/20/19 16:22 Dose: 500 mg Lorazepam (Ativan) 0.5 mg PO Q4HR PRN; Protocol PRN Reason: Anxiety Stop: 07/15/19 23:49 Last Admin: 06/18/19 20:37 Dose: 0.5 mg Magnesium Hydroxide (Milk Of Magnesia) 30 ml PO HS PRN PRN Reason: Constipation Metoprolol Tartrate (Lopressor) 50 mg PO BID [facility] Stop: 08/15/19 08:59 Last Admin: 06/20/19 16:18 Dose: 50 mg Multivitamins/Vitamin C (Theragran) 1 tab PO DAILY [facility] Stop: 08/15/19 08:59 Last Admin: 06/20/19 08:23 Dose: 1 tab Quetiapine Fumarate (Seroquel) 300 mg PO HS [facility]; Protocol Stop: 08/15/19 20:59 Last Admin: 06/20/19 20:29 Dose: 300 mg Risperidone (Risperdal) 3 mg PO BID [facility]; Protocol Stop: 08/15/19 08:59 Last Admin: 06/20/19 16:22 Dose: 3 mg Zolpidem Tartrate (Ambien) 5 mg PO HS PRN PRN Reason: Insomnia Stop: 08/14/19 23:49 Last Admin: 06/19/19 20:34 Dose: 5 mg General: demented HEENT: NC/AT, PERRLA, EOMI, anicteric sclerae, throat clear Neck: Supple, No JVD, No thyromegaly, +2 carotid pulse wo bruit, No LAD Lungs: CTAB Cardiovascular: RRR, Normal S1, Normal S2, without murmur Abdomen: soft, non-tender, non-distended Extremities: clear Neurological: no change - Procedures Procedures: Procedures Procedure Code Date GROUP PSYCHOTHERAPY 84133 07/16/15 GROUP PSYCHOTHERAPY GZHZZZZ 07/16/15 INDIVID PSYCHOTHERAP NEC 94.39 09/06/13 OTHER GROUP THERAPY 94.44 05/03/14 RECREATIONAL THERAPY 93.81 08/25/12 Internal Medicine Assmt/Plan - Assessment Assessment: 1.HTN. 2.SEIZURE DISORDER. 3.DJD. 4.PSYCHOSIS - Plan Plan: CONTINUE ON CURRENT MEDICATION AND DIET. Nutritional Asmnt/Malnutr-PDOC - Dietary Evaluation Malnutrition Findings (Please click <Entered> for more info): Nutritional Asmnt/Malnutrition Start: 06/19/19 11: 43 Text: Status: Active Freq: Protocol: Document 06/19/19 11:43 ASH (Rec: 06/19/19 11:45 ASH [email or web address]) Nutritional Asmnt/Malnutrition Patient General Information Nutritional Screening Moderate Risk Diagnosis Psychosis NOS Pertinent Medical Hx/Surgical Hx HTN, DM, CVA/TIA, Dyslipidemia , Seizures, Arthritis, Dementia, Schizophrenia Subjective Information Pt is a 69-year-old male admitted on 06/15 d/t agitation and hallucinations. Pt is eating 75-100% of meals Per Meal/Nutrition Activity Record . Dietary is currently providing an estimated 1850 kcals and 82 gm Pro, per Pt PO intake this is providing an estimated 1620 kcals and 72gm Pro to meet 100+% kcal and 100 +% Pro needs. HT: 5 FT WT: 144 LB (65.45 kg) ABW: 116 LB (52.73 kg) BMI: 28.15 (Overweight) GI: WNL, flat, soft, non- tender BM: 06/19 x1 I/O: 1480/Not Noted Skin: WNL, intact Mansoor: 20 Diet Order: Na 2gm, NCS Estimated Energy Needs: ( Geriatric, ABW) 0705-8031 kcals (25-30 kcals/ kg) 53-63g Pro (1.0-1.2 g/kg) 4773-5202 ml (25-30 ml/kg) Current Diet Order/ Nutrition Support Na 2gm, NCS Pertinent Medications Maalox (PRN), Colace, Pepcid, Keppra, MOM (PRN), Theragran Pertinent Labs 06/17: Glucose 120, Alb 3.9 Nutritional Hx/Data Height 1.52 m Height (Calculated Centimeters) 152.4 Current Weight (lbs) 65.317 kg Weight (Calculated Kilograms) 65.3 Weight (Calculated Grams) 28936.3 [place] Body Weight 106 LB (48.18 kg) % [place] Body Weight 136 Body Mass Index (BMI) 28.1 Weight Status Overweight GI Symptoms GI Symptoms None Skin Integrity/Comment: Skin: WNL, intact [place]: 20 Current %PO Good (75-100%) Estimated Nutritional Goals BEE in Kcals: Adj wt of IBW Calories/Kcals/Kg 25-30 Kcals Calculated 8003-8179 Protein: Adj wt of IBW Protein g/k.0-1.2 Protein Calculated 53-63 Fluid: ml 7141-4131 ml (25-30 ml/kg) Nutritional Problem 1. Problem Problem Altered nutrient utilization Etiology related to endocrine dysfunction Signs/Symptoms: aeb Hx DM, Glucose 120. Malnutrition Related to Morbid Obesity Malnutrition related to morbid obesity No Intervention/Recommendation Comments Continue with Na 2gm, NCS diet as ordered. Expected Outcomes/Goals Expected Outcomes/Goals 1. PO intake to continue to meet >75% of nutritional needs . 2. Monitor PO intake, wt, nutrition related labs, and skin integrity. 3. F/U as low risk in 7 days, 06/26
[2019-06-21] MEDS: Multivitamin Tab PO SCH (09:10)
[2019-06-21] MEDS: Guaifenesin DM 10 ML UDC PO PRN (09:41)
--- NOTE | 2019-06-21 10:16 | Progress Notes ---
DATE: SUBJECTIVE: Chart reviewed and the patient interviewed. Also discussed the patient's condition with the staff and reviewed records and labs. The patient is still anxious and still needs redirections. The patient also is still restless and still needs to be monitored closely, but easier to redirect him. At times, the patient wants to be left alone. The patient also is denying any intention to harm himself or others. ASSESSMENT: The patient is still anxious and needs close monitoring. TREATMENT PLAN: Continue to monitor his behavior and his condition closely. Also, continue to work on his psychotropic medications and adjust his medications and work on behavior modification and followup. JOB# [id number]
--- NOTE | 2019-06-21 20:07 | Internal Medicine Prog Note ---
Internal Medicine Subjective - Subjective Service Date: 06/21/19 Patient seen and examined:: without staff (he is doing good) Patient is:: awake, verbal, in bed, confused Per staff patient has:: no adverse event Internal Medicine Objective - Results Result Diagrams: 06/17/19 08:00 06/17/19 08:00 Recent Labs: Laboratory Last Values WBC 7.3 Th/cmm (4.8-10.8) 06/17/19 08:00 RBC 4.89 Mil/cmm (3.80-5.80) 06/17/19 08:00 Hgb 14.1 gm/dL (12-16) 06/17/19 08:00 Hct 42.1 % (41.0-60) 06/17/19 08:00 MCV 86.2 fl (80-99) 06/17/19 08:00 MCH 28.9 pg (27.0-31.0) 06/17/19 08:00 MCHC Differential 33.5 pg (28.0-36.0) 06/17/19 08:00 RDW 15.8 % (11.5-20.0) 06/17/19 08:00 Plt Count 239 Th/cmm (150-400) 06/17/19 08:00 MPV 8.0 fl 06/17/19 08:00 Neutrophils % 59.7 % (40.0-80.0) 06/17/19 08:00 Lymphocytes % 27.0 % (20.0-50.0) 06/17/19 08:00 Monocytes % 11.0 % (2.0-10.0) H 06/17/19 08:00 Eosinophils % 2.2 % (0.0-5.0) 06/17/19 08:00 Basophils % 0.1 % (0.0-2.0) 06/17/19 08:00 Sodium 136 mEq/L (136-145) 06/17/19 08:00 Potassium 4.0 mEq/L (3.5-5.1) 06/17/19 08:00 Chloride 101 mEq/L (98-107) 06/17/19 08:00 Carbon Dioxide 27.7 mEq/L (21.0-31.0) 06/17/19 08:00 Anion Gap 11.3 (7.0-16.0) 06/17/19 08:00 BUN 10 mg/dL (7-25) 06/17/19 08:00 Creatinine 0.8 mg/dL (0.7-1.3) 06/17/19 08:00 Est GFR ( Amer) > 60.0 ml/min (>90) 06/17/19 08:00 Est GFR (Non-Af Amer) > 60.0 ml/min 06/17/19 08:00 BUN/Creatinine Ratio 12.5 06/17/19 08:00 Glucose 120 mg/dL (70-105) H 06/17/19 08:00 Calcium 9.2 mg/dL (8.6-10.3) 06/17/19 08:00 Total Bilirubin 0.5 mg/dL (0.3-1.0) 06/17/19 08:00 AST 15 U/L (13-39) 06/17/19 08:00 ALT 7 U/L (7-52) 06/17/19 08:00 Alkaline Phosphatase 61 U/L (34-104) 06/17/19 08:00 Troponin I < 0.01 ng/mL (0.01-0.05) L 06/15/19 21:18 Total Protein 6.9 gm/dL (6.0-8.3) 06/17/19 08:00 Albumin 3.9 gm/dL (4.2-5.5) L 06/17/19 08:00 Globulin 3.0 gm/dL 06/17/19 08:00 Albumin/Globulin Ratio 1.3 (1.0-1.8) 06/17/19 08:00 Triglycerides 165 mg/dL (<150) H 06/15/19 05:15 Cholesterol 207 mg/dL (<200) H 06/15/19 05:15 LDL Cholesterol Direct 141 mg/dL (75-193) 06/15/19 05:15 HDL Cholesterol 60 mg/dL (23-92) 06/15/19 05:15 TSH 2.26 uIU/ml (0.34-5.60) 06/17/19 08:00 - Physical Exam Vitals and I&O: Vital Signs Temp 97.1 F 06/21/19 17:12 Pulse 100 06/21/19 17:12 Resp 20 06/21/19 17:12 BP 121/82 09/19/19 17:12 Pulse Ox 100 06/21/19 17:12 Intake & Output 06/21/19 06/21/19 06/22/19 06:59 18:59 06:59 Intake Total 120 Balance 120 Intake: Oral 120 Other: # Voids 2 Active Medications: Current Medications Acetaminophen (Tylenol) 650 mg PO Q4HR PRN PRN Reason: Mild Pain / Temp above 100 Stop: 08/14/19 23:49 Al Hydrox/Mg Hydrox/Simethicone (Maalox) 30 ml PO Q4HR PRN PRN Reason: GI DISTRESS Stop: 08/14/19 23:49 Divalproex Sodium (Depakote Dr) 250 mg PO BID [facility]; Protocol Stop: 08/18/19 08:59 Last Admin: 06/21/19 16:12 Dose: 250 mg Docusate Sodium (Colace) 250 mg PO DAILY [facility] Stop: 08/15/19 08:59 Last Admin: 06/21/19 09:10 Dose: 250 mg Famotidine (Pepcid) 40 mg PO DAILY [facility] Stop: 08/15/19 08:59 Last Admin: 06/21/19 09:10 Dose: 40 mg Guaifenesin/Dextromethorphan (Robitussin Dm) 10 ml PO Q6HR PRN PRN Reason: Cough Stop: 08/18/19 16:45 Last Admin: 06/21/19 09:41 Dose: 10 ml Levetiracetam (Keppra) 500 mg PO BID [facility] Stop: 08/15/19 08:59 Last Admin: 06/21/19 16:12 Dose: 500 mg Lorazepam (Ativan) 0.5 mg PO Q4HR PRN; Protocol PRN Reason: Anxiety Stop: 07/15/19 23:49 Last Admin: 06/21/19 09:41 Dose: 0.5 mg Magnesium Hydroxide (Milk Of Magnesia) 30 ml PO HS PRN PRN Reason: Constipation Metoprolol Tartrate (Lopressor) 50 mg PO BID [facility] Stop: 08/15/19 08:59 Last Admin: 06/21/19 16:11 Dose: 50 mg Multivitamins/Vitamin C (Theragran) 1 tab PO DAILY [facility] Stop: 08/15/19 08:59 Last Admin: 06/21/19 09:10 Dose: 1 tab Quetiapine Fumarate (Seroquel) 300 mg PO HS [facility]; Protocol Stop: 08/15/19 20:59 Last Admin: 06/20/19 20:29 Dose: 300 mg Risperidone (Risperdal) 3 mg PO BID [facility]; Protocol Stop: 08/15/19 08:59 Last Admin: 06/21/19 16:12 Dose: 3 mg Trazodone HCl (Desyrel) 50 mg PO HS [facility]; Protocol Stop: 08/20/19 20:59 Zolpidem Tartrate (Ambien) 5 mg PO HS PRN PRN Reason: Insomnia Stop: 08/14/19 23:49 Last Admin: 06/19/19 20:34 Dose: 5 mg General: demented HEENT: NC/AT, PERRLA, EOMI, anicteric sclerae, throat clear Neck: Supple, No JVD, No thyromegaly, +2 carotid pulse wo bruit, No LAD Lungs: CTAB Cardiovascular: RRR, Normal S1, Normal S2, without murmur Abdomen: soft, non-tender, non-distended Extremities: clear Neurological: no change - Procedures Procedures: Procedures Procedure Code Date GROUP PSYCHOTHERAPY 84190 07/16/15 GROUP PSYCHOTHERAPY GZHZZZZ 07/16/15 INDIVID PSYCHOTHERAP NEC 94.39 09/06/13 OTHER GROUP THERAPY 94.44 05/03/14 RECREATIONAL THERAPY 93.81 08/25/12 Internal Medicine Assmt/Plan - Assessment Assessment: 1.HTN. 2.SEIZURE DISORDER. 3.DJD. 4.PSYCHOSIS - Plan Plan: CONTINUE ON CURRENT MEDICATION AND DIET. Nutritional Asmnt/Malnutr-PDOC - Dietary Evaluation Malnutrition Findings (Please click <Entered> for more info): Nutritional Asmnt/Malnutrition Start: 06/19/19 11: 43 Text: Status: Active Freq: Protocol: Document 06/19/19 11:43 ASH (Rec: 06/19/19 11:45 ASH [email or web address]) Nutritional Asmnt/Malnutrition Patient General Information Nutritional Screening Moderate Risk Diagnosis Psychosis NOS Pertinent Medical Hx/Surgical Hx HTN, DM, CVA/TIA, Dyslipidemia , Seizures, Arthritis, Dementia, Schizophrenia Subjective Information Pt is a 69-year-old male admitted on 06/15 d/t agitation and hallucinations. Pt is eating 75-100% of meals Per Meal/Nutrition Activity Record . Dietary is currently providing an estimated 1850 kcals and 82 gm Pro, per Pt PO intake this is providing an estimated 1620 kcals and 72gm Pro to meet 100+% kcal and 100 +% Pro needs. HT: 5 FT WT: 144 LB (65.45 kg) ABW: 116 LB (52.73 kg) BMI: 28.15 (Overweight) GI: WNL, flat, soft, non- tender BM: 06/19 x1 I/O: 1480/Not Noted Skin: WNL, intact Mansoor: 20 Diet Order: Na 2gm, NCS Estimated Energy Needs: ( Geriatric, ABW) 4828-3354 kcals (25-30 kcals/ kg) 53-63g Pro (1.0-1.2 g/kg) 3848-2699 ml (25-30 ml/kg) Current Diet Order/ Nutrition Support Na 2gm, NCS Pertinent Medications Maalox (PRN), Colace, Pepcid, Keppra, MOM (PRN), Theragran Pertinent Labs 06/17: Glucose 120, Alb 3.9 Nutritional Hx/Data Height 1.52 m Height (Calculated Centimeters) 152.4 Current Weight (lbs) 65.317 kg Weight (Calculated Kilograms) 65.3 Weight (Calculated Grams) 46595.3 [place] Body Weight 106 LB (48.18 kg) % [place] Body Weight 136 Body Mass Index (BMI) 28.1 Weight Status Overweight GI Symptoms GI Symptoms None Skin Integrity/Comment: Skin: WNL, intact Mansoor: 20 Current %PO Good (75-100%) Estimated Nutritional Goals BEE in Kcals: Adj wt of IBW Calories/Kcals/Kg 25-30 Kcals Calculated 8347-5661 Protein: Adj wt of IBW Protein g/k.0-1.2 Protein Calculated 53-63 Fluid: ml 6484-2692 ml (25-30 ml/kg) Nutritional Problem 1. Problem Problem Altered nutrient utilization Etiology related to endocrine dysfunction Signs/Symptoms: aeb Hx DM, Glucose 120. Malnutrition Related to Morbid Obesity Malnutrition related to morbid obesity No Intervention/Recommendation Comments Continue with Na 2gm, NCS diet as ordered. Expected Outcomes/Goals Expected Outcomes/Goals 1. PO intake to continue to meet >75% of nutritional needs . 2. Monitor PO intake, wt, nutrition related labs, and skin integrity. 3. F/U as low risk in 7 days, 06/26
--- NOTE | 2019-06-22 09:17 | Internal Medicine Prog Note ---
Internal Medicine Subjective - Subjective Service Date: 06/22/19 Patient seen and examined:: without staff (HE IS DOING WELL) Patient is:: awake, verbal, in bed, confused Per staff patient has:: no adverse event Internal Medicine Objective - Results Result Diagrams: 06/17/19 08:00 06/17/19 08:00 Recent Labs: Laboratory Last Values WBC 7.3 Th/cmm (4.8-10.8) 06/17/19 08:00 RBC 4.89 Mil/cmm (3.80-5.80) 06/17/19 08:00 Hgb 14.1 gm/dL (12-16) 06/17/19 08:00 Hct 42.1 % (41.0-60) 06/17/19 08:00 MCV 86.2 fl (80-99) 06/17/19 08:00 MCH 28.9 pg (27.0-31.0) 06/17/19 08:00 MCHC Differential 33.5 pg (28.0-36.0) 06/17/19 08:00 RDW 15.8 % (11.5-20.0) 06/17/19 08:00 Plt Count 239 Th/cmm (150-400) 06/17/19 08:00 MPV 8.0 fl 06/17/19 08:00 Neutrophils % 59.7 % (40.0-80.0) 06/17/19 08:00 Lymphocytes % 27.0 % (20.0-50.0) 06/17/19 08:00 Monocytes % 11.0 % (2.0-10.0) H 06/17/19 08:00 Eosinophils % 2.2 % (0.0-5.0) 06/17/19 08:00 Basophils % 0.1 % (0.0-2.0) 06/17/19 08:00 Sodium 136 mEq/L (136-145) 06/17/19 08:00 Potassium 4.0 mEq/L (3.5-5.1) 06/17/19 08:00 Chloride 101 mEq/L (98-107) 06/17/19 08:00 Carbon Dioxide 27.7 mEq/L (21.0-31.0) 06/17/19 08:00 Anion Gap 11.3 (7.0-16.0) 06/17/19 08:00 BUN 10 mg/dL (7-25) 06/17/19 08:00 Creatinine 0.8 mg/dL (0.7-1.3) 06/17/19 08:00 Est GFR ( Amer) > 60.0 ml/min (>90) 06/17/19 08:00 Est GFR (Non-Af Amer) > 60.0 ml/min 06/17/19 08:00 BUN/Creatinine Ratio 12.5 06/17/19 08:00 Glucose 120 mg/dL (70-105) H 06/17/19 08:00 Calcium 9.2 mg/dL (8.6-10.3) 06/17/19 08:00 Total Bilirubin 0.5 mg/dL (0.3-1.0) 06/17/19 08:00 AST 15 U/L (13-39) 06/17/19 08:00 ALT 7 U/L (7-52) 06/17/19 08:00 Alkaline Phosphatase 61 U/L (34-104) 06/17/19 08:00 Troponin I < 0.01 ng/mL (0.01-0.05) L 06/15/19 21:18 Total Protein 6.9 gm/dL (6.0-8.3) 06/17/19 08:00 Albumin 3.9 gm/dL (4.2-5.5) L 06/17/19 08:00 Globulin 3.0 gm/dL 06/17/19 08:00 Albumin/Globulin Ratio 1.3 (1.0-1.8) 06/17/19 08:00 Triglycerides 165 mg/dL (<150) H 06/15/19 05:15 Cholesterol 207 mg/dL (<200) H 06/15/19 05:15 LDL Cholesterol Direct 141 mg/dL (75-193) 06/15/19 05:15 HDL Cholesterol 60 mg/dL (23-92) 06/15/19 05:15 TSH 2.26 uIU/ml (0.34-5.60) 06/17/19 08:00 - Physical Exam Vitals and I&O: Vital Signs Temp 97.9 F 06/22/19 07:03 Pulse 103 06/22/19 07:03 Resp 19 06/22/19 07:03 BP 103/70 09/20/19 07:03 Pulse Ox 97 06/22/19 07:03 Intake & Output 06/21/19 06/22/19 06/22/19 18:59 06:59 18:59 Intake Total 240 Balance 240 Intake: Oral 240 Other: # Voids 2 Active Medications: Current Medications Acetaminophen (Tylenol) 650 mg PO Q4HR PRN PRN Reason: Mild Pain / Temp above 100 Stop: 08/14/19 23:49 Al Hydrox/Mg Hydrox/Simethicone (Maalox) 30 ml PO Q4HR PRN PRN Reason: GI DISTRESS Stop: 08/14/19 23:49 Divalproex Sodium (Depakote Dr) 250 mg PO BID [facility]; Protocol Stop: 08/18/19 08:59 Last Admin: 06/21/19 16:12 Dose: 250 mg Docusate Sodium (Colace) 250 mg PO DAILY [facility] Stop: 08/15/19 08:59 Last Admin: 06/21/19 09:10 Dose: 250 mg Famotidine (Pepcid) 40 mg PO DAILY [facility] Stop: 08/15/19 08:59 Last Admin: 06/21/19 09:10 Dose: 40 mg Guaifenesin/Dextromethorphan (Robitussin Dm) 10 ml PO Q6HR PRN PRN Reason: Cough Stop: 08/18/19 16:45 Last Admin: 06/21/19 09:41 Dose: 10 ml Levetiracetam (Keppra) 500 mg PO BID [facility] Stop: 08/15/19 08:59 Last Admin: 06/21/19 16:12 Dose: 500 mg Lorazepam (Ativan) 0.5 mg PO Q4HR PRN; Protocol PRN Reason: Anxiety Stop: 07/15/19 23:49 Last Admin: 06/21/19 22:42 Dose: 0.5 mg Magnesium Hydroxide (Milk Of Magnesia) 30 ml PO HS PRN PRN Reason: Constipation Metoprolol Tartrate (Lopressor) 50 mg PO BID [facility] Stop: 08/15/19 08:59 Last Admin: 06/21/19 16:11 Dose: 50 mg Multivitamins/Vitamin C (Theragran) 1 tab PO DAILY [facility] Stop: 08/15/19 08:59 Last Admin: 06/21/19 09:10 Dose: 1 tab Quetiapine Fumarate (Seroquel) 300 mg PO HS [facility]; Protocol Stop: 08/15/19 20:59 Last Admin: 06/21/19 21:14 Dose: 300 mg Risperidone (Risperdal) 4 mg PO BID [facility]; Protocol Stop: 08/21/19 08:59 Trazodone HCl (Desyrel) 50 mg PO HS [facility]; Protocol Stop: 08/20/19 20:59 Last Admin: 06/21/19 21:14 Dose: 50 mg Zolpidem Tartrate (Ambien) 5 mg PO HS PRN PRN Reason: Insomnia Stop: 08/14/19 23:49 Last Admin: 06/21/19 21:14 Dose: 5 mg General: demented HEENT: NC/AT, PERRLA, EOMI, anicteric sclerae, throat clear Neck: Supple, No JVD, No thyromegaly, +2 carotid pulse wo bruit, No LAD Lungs: CTAB Cardiovascular: RRR, Normal S1, Normal S2, without murmur Abdomen: soft, non-tender, non-distended Extremities: clear Neurological: no change - Procedures Procedures: Procedures Procedure Code Date GROUP PSYCHOTHERAPY 74866 07/16/15 GROUP PSYCHOTHERAPY GZHZZZZ 07/16/15 INDIVID PSYCHOTHERAP NEC 94.39 09/06/13 OTHER GROUP THERAPY 94.44 05/03/14 RECREATIONAL THERAPY 93.81 08/25/12 Internal Medicine Assmt/Plan - Assessment Assessment: 1.HTN. 2.SEIZURE DISORDER. 3.DJD. 4.PSYCHOSIS - Plan Plan: CONTINUE ON CURRENT MEDICATION AND DIET. Nutritional Asmnt/Malnutr-PDOC - Dietary Evaluation Malnutrition Findings (Please click <Entered> for more info): Nutritional Asmnt/Malnutrition Start: 06/19/19 11: 43 Text: Status: Active Freq: Protocol: Document 06/19/19 11:43 ASH (Rec: 06/19/19 11:45 ASH [id number]) Nutritional Asmnt/Malnutrition Patient General Information Nutritional Screening Moderate Risk Diagnosis Psychosis NOS Pertinent Medical Hx/Surgical Hx HTN, DM, CVA/TIA, Dyslipidemia , Seizures, Arthritis, Dementia, Schizophrenia Subjective Information Pt is a 69-year-old male admitted on 06/15 d/t agitation and hallucinations. Pt is eating 75-100% of meals Per Meal/Nutrition Activity Record . Dietary is currently providing an estimated 1850 kcals and 82 gm Pro, per Pt PO intake this is providing an estimated 1620 kcals and 72gm Pro to meet 100+% kcal and 100 +% Pro needs. HT: 5 FT WT: 144 LB (65.45 kg) ABW: 116 LB (52.73 kg) BMI: 28.15 (Overweight) GI: WNL, flat, soft, non- tender BM: 06/19 x1 I/O: 1480/Not Noted Skin: WNL, intact Mansoor: 20 Diet Order: Na 2gm, NCS Estimated Energy Needs: ( Geriatric, ABW) 1659-9062 kcals (25-30 kcals/ kg) 53-63g Pro (1.0-1.2 g/kg) 7196-2669 ml (25-30 ml/kg) Current Diet Order/ Nutrition Support Na 2gm, NCS Pertinent Medications Maalox (PRN), Colace, Pepcid, Keppra, MOM (PRN), Theragran Pertinent Labs 06/17: Glucose 120, Alb 3.9 Nutritional Hx/Data Height 1.52 m Height (Calculated Centimeters) 152.4 Current Weight (lbs) 65.317 kg Weight (Calculated Kilograms) 65.3 Weight (Calculated Grams) 69825.3 [place] Body Weight 106 LB (48.18 kg) % [place] Body Weight 136 Body Mass Index (BMI) 28.1 Weight Status Overweight GI Symptoms GI Symptoms None Skin Integrity/Comment: Skin: WNL, intact Mansoor: 20 Current %PO Good (75-100%) Estimated Nutritional Goals BEE in Kcals: Adj wt of IBW Calories/Kcals/Kg 25-30 Kcals Calculated 8070-4026 Protein: Adj wt of IBW Protein g/k.0-1.2 Protein Calculated 53-63 Fluid: ml 4800-8795 ml (25-30 ml/kg) Nutritional Problem 1. Problem Problem Altered nutrient utilization Etiology related to endocrine dysfunction Signs/Symptoms: aeb Hx DM, Glucose 120. Malnutrition Related to Morbid Obesity Malnutrition related to morbid obesity No Intervention/Recommendation Comments Continue with Na 2gm, NCS diet as ordered. Expected Outcomes/Goals Expected Outcomes/Goals 1. PO intake to continue to meet >75% of nutritional needs . 2. Monitor PO intake, wt, nutrition related labs, and skin integrity. 3. F/U as low risk in 7 days, 06/26
[2019-06-22] MEDS: Multivitamin Tab PO SCH (10:06)
[2019-06-22] MEDS: risperiDONE 4 mg Tab PO SCH ×2 (10:09→17:39)
[2019-06-22] MEDS: Guaifenesin DM 10 ML UDC PO PRN ×2 (12:26→19:09)
--- NOTE | 2019-06-22 21:19 | Progress Notes ---
DATE: SUBJECTIVE: Chart reviewed and the patient interviewed. Also discussed the patient's condition with the staff and reviewed records and labs. The patient continued to be depressed and is withdrawn. The patient also is still reporting "I'm hearing voices." The patient also is complaining of insomnia and he has not been able to sleep at night. I did start the patient on trazodone yesterday in a dose of 50 mg every day. The patient said that the voices have been bothering him and that he has been disturbed by the voices and also added that the voice kept him awake all night and he cannot stop hearing them. Otherwise, the patient is exhibiting no major behavioral problems. ASSESSMENT: The patient is still psychotic and needs close monitoring. TREATMENT PLAN: We will increase Risperdal to 4 mg twice a day. Also, we will continue Depakote in a dose of 250 mg twice a day. Also, the patient is taking Seroquel 300 mg at bedtime. No side effects of medications. We will continue work on his psychosis and his ineffective coping and continue to follow up. Depakote blood level was ordered so far twice and I do not see the results back yet. We will reorder another Depakote blood level. Hopefully, it will be done. Also, we will continue to work on his mood and we will continue to follow up. JOB# [id number]
[2019-06-23] MEDS: Multivitamin Tab PO SCH (08:40)
[2019-06-23] MEDS: risperiDONE 4 mg Tab PO SCH ×2 (08:40→16:42)
--- NOTE | 2019-06-23 14:22 | General Progress Note ---
Subjective - Review of Systems Service Date: 06/23/19 Subjective: resting comfortably no distress Objective - Results Result Diagrams: 06/17/19 08:00 06/17/19 08:00 Recent Labs: Laboratory Last Values WBC 7.3 Th/cmm (4.8-10.8) 06/17/19 08:00 RBC 4.89 Mil/cmm (3.80-5.80) 06/17/19 08:00 Hgb 14.1 gm/dL (12-16) 06/17/19 08:00 Hct 42.1 % (41.0-60) 06/17/19 08:00 MCV 86.2 fl (80-99) 06/17/19 08:00 MCH 28.9 pg (27.0-31.0) 06/17/19 08:00 MCHC Differential 33.5 pg (28.0-36.0) 06/17/19 08:00 RDW 15.8 % (11.5-20.0) 06/17/19 08:00 Plt Count 239 Th/cmm (150-400) 06/17/19 08:00 MPV 8.0 fl 06/17/19 08:00 Neutrophils % 59.7 % (40.0-80.0) 06/17/19 08:00 Lymphocytes % 27.0 % (20.0-50.0) 06/17/19 08:00 Monocytes % 11.0 % (2.0-10.0) H 06/17/19 08:00 Eosinophils % 2.2 % (0.0-5.0) 06/17/19 08:00 Basophils % 0.1 % (0.0-2.0) 06/17/19 08:00 Sodium 136 mEq/L (136-145) 06/17/19 08:00 Potassium 4.0 mEq/L (3.5-5.1) 06/17/19 08:00 Chloride 101 mEq/L (98-107) 06/17/19 08:00 Carbon Dioxide 27.7 mEq/L (21.0-31.0) 06/17/19 08:00 Anion Gap 11.3 (7.0-16.0) 06/17/19 08:00 BUN 10 mg/dL (7-25) 06/17/19 08:00 Creatinine 0.8 mg/dL (0.7-1.3) 06/17/19 08:00 Est GFR ( Amer) > 60.0 ml/min (>90) 06/17/19 08:00 Est GFR (Non-Af Amer) > 60.0 ml/min 06/17/19 08:00 BUN/Creatinine Ratio 12.5 06/17/19 08:00 Glucose 120 mg/dL (70-105) H 06/17/19 08:00 Calcium 9.2 mg/dL (8.6-10.3) 06/17/19 08:00 Total Bilirubin 0.5 mg/dL (0.3-1.0) 06/17/19 08:00 AST 15 U/L (13-39) 06/17/19 08:00 ALT 7 U/L (7-52) 06/17/19 08:00 Alkaline Phosphatase 61 U/L (34-104) 06/17/19 08:00 Troponin I < 0.01 ng/mL (0.01-0.05) L 06/15/19 21:18 Total Protein 6.9 gm/dL (6.0-8.3) 06/17/19 08:00 Albumin 3.9 gm/dL (4.2-5.5) L 06/17/19 08:00 Globulin 3.0 gm/dL 06/17/19 08:00 Albumin/Globulin Ratio 1.3 (1.0-1.8) 06/17/19 08:00 Triglycerides 165 mg/dL (<150) H 06/15/19 05:15 Cholesterol 207 mg/dL (<200) H 06/15/19 05:15 LDL Cholesterol Direct 141 mg/dL (75-193) 06/15/19 05:15 HDL Cholesterol 60 mg/dL (23-92) 06/15/19 05:15 TSH 2.26 uIU/ml (0.34-5.60) 06/17/19 08:00 - Physical Exam Vitals and I&O: Vital Signs Temp 97.2 F 06/23/19 06:53 Pulse 111 06/23/19 06:53 Resp 19 06/23/19 07:46 BP 98/69 06/23/19 08:40 Pulse Ox 97 06/23/19 06:53 Intake & Output 06/22/19 06/23/19 06/23/19 18:59 06:59 18:59 Intake Total 1740 1400 Balance 1740 1400 Intake: Oral 1740 1400 Other: # Voids 3 2 # Bowel Movements 0 Active Medications: Current Medications Acetaminophen (Tylenol) 650 mg PO Q4HR PRN PRN Reason: Mild Pain / Temp above 100 Stop: 08/14/19 23:49 Al Hydrox/Mg Hydrox/Simethicone (Maalox) 30 ml PO Q4HR PRN PRN Reason: GI DISTRESS Stop: 08/14/19 23:49 Divalproex Sodium (Depakote Dr) 250 mg PO BID [facility]; Protocol Stop: 08/18/19 08:59 Last Admin: 06/23/19 08:40 Dose: 250 mg Docusate Sodium (Colace) 250 mg PO DAILY [facility] Stop: 08/15/19 08:59 Last Admin: 06/23/19 08:39 Dose: 250 mg Famotidine (Pepcid) 40 mg PO DAILY [facility] Stop: 08/15/19 08:59 Last Admin: 06/23/19 08:39 Dose: 40 mg Guaifenesin/Dextromethorphan (Robitussin Dm) 10 ml PO Q6HR PRN PRN Reason: Cough Stop: 08/18/19 16:45 Last Admin: 06/22/19 19:09 Dose: 10 ml Levetiracetam (Keppra) 500 mg PO BID [facility] Stop: 08/15/19 08:59 Last Admin: 06/23/19 08:40 Dose: 500 mg Lorazepam (Ativan) 0.5 mg PO Q4HR PRN; Protocol PRN Reason: Anxiety Stop: 07/15/19 23:49 Last Admin: 06/22/19 17:40 Dose: 0.5 mg Magnesium Hydroxide (Milk Of Magnesia) 30 ml PO HS PRN PRN Reason: Constipation Metoprolol Tartrate (Lopressor) 50 mg PO BID [facility] Stop: 08/15/19 08:59 Last Admin: 06/23/19 08:40 Dose: Not Given Multivitamins/Vitamin C (Theragran) 1 tab PO DAILY [facility] Stop: 08/15/19 08:59 Last Admin: 06/23/19 08:40 Dose: 1 tab Quetiapine Fumarate (Seroquel) 300 mg PO HS [facility]; Protocol Stop: 08/15/19 20:59 Last Admin: 06/22/19 20:45 Dose: 300 mg Risperidone (Risperdal) 4 mg PO BID [facility]; Protocol Stop: 08/21/19 08:59 Last Admin: 06/23/19 08:40 Dose: Not Given Trazodone HCl (Desyrel) 50 mg PO HS [facility]; Protocol Stop: 08/20/19 20:59 Last Admin: 06/22/19 20:45 Dose: 50 mg Zolpidem Tartrate (Ambien) 5 mg PO HS PRN PRN Reason: Insomnia Stop: 08/14/19 23:49 Last Admin: 06/21/19 21:14 Dose: 5 mg General: No acute distress HEENT: PERRLA Neck: Supple, JVD Cardiovascular: Regular rate, Normal S1, Normal S2 Lungs: Clear to auscultation Abdomen: Bowel sounds, Soft - Procedures Procedures: Procedures Procedure Code Date GROUP PSYCHOTHERAPY 31715 07/16/15 GROUP PSYCHOTHERAPY GZHZZZZ 07/16/15 INDIVID PSYCHOTHERAP NEC 94.39 09/06/13 OTHER GROUP THERAPY 94.44 05/03/14 RECREATIONAL THERAPY 93.81 08/25/12 Assessment/Plan - Problem List Patient Problems: All Active Problems Agitation (Acute) R45.1 - Assessment Assessment: HTN Seizure d/o psychosis DJD - Plan Plan: continue current treatment Nutritional Asmnt/Malnutr-PDOC - Dietary Evaluation Malnutrition Findings (Please click <Entered> for more info): Nutritional Asmnt/Malnutrition Start: 06/19/19 11: 43 Text: Status: Active Freq: Protocol: Document 06/19/19 11:43 ASH (Rec: 06/19/19 11:45 ASH [id number]) Nutritional Asmnt/Malnutrition Patient General Information Nutritional Screening Moderate Risk Diagnosis Psychosis NOS Pertinent Medical Hx/Surgical Hx HTN, DM, CVA/TIA, Dyslipidemia , Seizures, Arthritis, Dementia, Schizophrenia Subjective Information Pt is a 69-year-old male admitted on 06/15 d/t agitation and hallucinations. Pt is eating 75-100% of meals Per Meal/Nutrition Activity Record . Dietary is currently providing an estimated 1850 kcals and 82 gm Pro, per Pt PO intake this is providing an estimated 1620 kcals and 72gm Pro to meet 100+% kcal and 100 +% Pro needs. HT: 5 FT WT: 144 LB (65.45 kg) ABW: 116 LB (52.73 kg) BMI: 28.15 (Overweight) GI: WNL, flat, soft, non- tender BM: 06/19 x1 I/O: 1480/Not Noted Skin: WNL, intact Mansoor: 20 Diet Order: Na 2gm, NCS Estimated Energy Needs: ( Geriatric, ABW) 6970-4235 kcals (25-30 kcals/ kg) 53-63g Pro (1.0-1.2 g/kg) 0493-2594 ml (25-30 ml/kg) Current Diet Order/ Nutrition Support Na 2gm, NCS Pertinent Medications Maalox (PRN), Colace, Pepcid, Keppra, MOM (PRN), Theragran Pertinent Labs 06/17: Glucose 120, Alb 3.9 Nutritional Hx/Data Height 1.52 m Height (Calculated Centimeters) 152.4 Current Weight (lbs) 65.317 kg Weight (Calculated Kilograms) 65.3 Weight (Calculated Grams) 06788.3 Grandy Body Weight 106 LB (48.18 kg) % Grandy Body Weight 136 Body Mass Index (BMI) 28.1 Weight Status Overweight GI Symptoms GI Symptoms None Skin Integrity/Comment: Skin: WNL, intact Mansoor: 20 Current %PO Good (75-100%) Estimated Nutritional Goals BEE in Kcals: Adj wt of IBW Calories/Kcals/Kg 25-30 Kcals Calculated 0022-5882 Protein: Adj wt of IBW Protein g/k.0-1.2 Protein Calculated 53-63 Fluid: ml 2806-7696 ml (25-30 ml/kg) Nutritional Problem 1. Problem Problem Altered nutrient utilization Etiology related to endocrine dysfunction Signs/Symptoms: aeb Hx DM, Glucose 120. Malnutrition Related to Morbid Obesity Malnutrition related to morbid obesity No Intervention/Recommendation Comments Continue with Na 2gm, NCS diet as ordered. Expected Outcomes/Goals Expected Outcomes/Goals 1. PO intake to continue to meet >75% of nutritional needs . 2. Monitor PO intake, wt, nutrition related labs, and skin integrity. 3. F/U as low risk in 7 days, 06/26
[2019-06-23] MEDS: Guaifenesin DM 10 ML UDC PO PRN (15:37)
--- NOTE | 2019-06-24 | Progress Notes ---
DATE: 06/23/2019 PSYCHIATRIC PROGRESS NOTE SUBJECTIVE: Chart reviewed and the patient interviewed. Also discussed the patient's condition with the staff and reviewed records and labs. The patient is still complaining of auditory hallucinations. The patient also said that the voice is telling him "you will ." The patient also is still complaining of insomnia, although staff reports that he has been sleeping well. He also is still anxious and still wants to be left alone and tends to isolate himself. Otherwise, the patient continues to take Risperdal, Depakote, Seroquel and trazodone with no side effects. ASSESSMENT: The patient is still psychotic and still needs close monitoring. TREATMENT PLAN: We will continue to monitor behavior and condition closely. Also, Depakote blood level is still pending. JOB# [id number]
--- NOTE | 2019-06-24 08:43 | General Progress Note ---
Subjective - Review of Systems Service Date: 06/24/19 Subjective: resting comfortably no distress Objective - Results Result Diagrams: 06/17/19 08:00 06/17/19 08:00 Recent Labs: Laboratory Last Values WBC 7.3 Th/cmm (4.8-10.8) 06/17/19 08:00 RBC 4.89 Mil/cmm (3.80-5.80) 06/17/19 08:00 Hgb 14.1 gm/dL (12-16) 06/17/19 08:00 Hct 42.1 % (41.0-60) 06/17/19 08:00 MCV 86.2 fl (80-99) 06/17/19 08:00 MCH 28.9 pg (27.0-31.0) 06/17/19 08:00 MCHC Differential 33.5 pg (28.0-36.0) 06/17/19 08:00 RDW 15.8 % (11.5-20.0) 06/17/19 08:00 Plt Count 239 Th/cmm (150-400) 06/17/19 08:00 MPV 8.0 fl 06/17/19 08:00 Neutrophils % 59.7 % (40.0-80.0) 06/17/19 08:00 Lymphocytes % 27.0 % (20.0-50.0) 06/17/19 08:00 Monocytes % 11.0 % (2.0-10.0) H 06/17/19 08:00 Eosinophils % 2.2 % (0.0-5.0) 06/17/19 08:00 Basophils % 0.1 % (0.0-2.0) 06/17/19 08:00 Sodium 136 mEq/L (136-145) 06/17/19 08:00 Potassium 4.0 mEq/L (3.5-5.1) 06/17/19 08:00 Chloride 101 mEq/L (98-107) 06/17/19 08:00 Carbon Dioxide 27.7 mEq/L (21.0-31.0) 06/17/19 08:00 Anion Gap 11.3 (7.0-16.0) 06/17/19 08:00 BUN 10 mg/dL (7-25) 06/17/19 08:00 Creatinine 0.8 mg/dL (0.7-1.3) 06/17/19 08:00 Est GFR ( Amer) > 60.0 ml/min (>90) 06/17/19 08:00 Est GFR (Non-Af Amer) > 60.0 ml/min 06/17/19 08:00 BUN/Creatinine Ratio 12.5 06/17/19 08:00 Glucose 120 mg/dL (70-105) H 06/17/19 08:00 Calcium 9.2 mg/dL (8.6-10.3) 06/17/19 08:00 Total Bilirubin 0.5 mg/dL (0.3-1.0) 06/17/19 08:00 AST 15 U/L (13-39) 06/17/19 08:00 ALT 7 U/L (7-52) 06/17/19 08:00 Alkaline Phosphatase 61 U/L (34-104) 06/17/19 08:00 Troponin I < 0.01 ng/mL (0.01-0.05) L 06/15/19 21:18 Total Protein 6.9 gm/dL (6.0-8.3) 06/17/19 08:00 Albumin 3.9 gm/dL (4.2-5.5) L 06/17/19 08:00 Globulin 3.0 gm/dL 06/17/19 08:00 Albumin/Globulin Ratio 1.3 (1.0-1.8) 06/17/19 08:00 Triglycerides 165 mg/dL (<150) H 06/15/19 05:15 Cholesterol 207 mg/dL (<200) H 06/15/19 05:15 LDL Cholesterol Direct 141 mg/dL (75-193) 06/15/19 05:15 HDL Cholesterol 60 mg/dL (23-92) 06/15/19 05:15 TSH 2.26 uIU/ml (0.34-5.60) 06/17/19 08:00 - Physical Exam Vitals and I&O: Vital Signs Temp 97.6 F 06/24/19 07:00 Pulse 98 06/24/19 07:00 Resp 20 06/24/19 07:00 BP 115/88 06/24/19 07:00 Pulse Ox 98 06/24/19 07:00 Intake & Output 06/23/19 06/24/19 06/24/19 18:59 06:59 18:59 Intake Total 1500 120 Balance 1500 120 Intake: Oral 1500 120 Other: # Voids 3 2 # Bowel Movements 0 0 Active Medications: Current Medications Acetaminophen (Tylenol) 650 mg PO Q4HR PRN PRN Reason: Mild Pain / Temp above 100 Stop: 08/14/19 23:49 Al Hydrox/Mg Hydrox/Simethicone (Maalox) 30 ml PO Q4HR PRN PRN Reason: GI DISTRESS Stop: 08/14/19 23:49 Last Admin: 06/23/19 19:49 Dose: 30 ml Divalproex Sodium (Depakote Dr) 250 mg PO BID [facility]; Protocol Stop: 08/18/19 08:59 Last Admin: 06/23/19 16:42 Dose: 250 mg Docusate Sodium (Colace) 250 mg PO DAILY [facility] Stop: 08/15/19 08:59 Last Admin: 06/23/19 08:39 Dose: 250 mg Famotidine (Pepcid) 40 mg PO DAILY [facility] Stop: 08/15/19 08:59 Last Admin: 06/23/19 08:39 Dose: 40 mg Guaifenesin/Dextromethorphan (Robitussin Dm) 10 ml PO Q6HR PRN PRN Reason: Cough Stop: 08/18/19 16:45 Last Admin: 06/23/19 15:37 Dose: 10 ml Levetiracetam (Keppra) 500 mg PO BID [facility] Stop: 08/15/19 08:59 Last Admin: 06/23/19 16:43 Dose: 500 mg Lorazepam (Ativan) 0.5 mg PO Q4HR PRN; Protocol PRN Reason: Anxiety Stop: 07/15/19 23:49 Last Admin: 06/23/19 15:36 Dose: 0.5 mg Magnesium Hydroxide (Milk Of Magnesia) 30 ml PO HS PRN PRN Reason: Constipation Metoprolol Tartrate (Lopressor) 50 mg PO BID [facility] Stop: 08/15/19 08:59 Last Admin: 06/23/19 16:44 Dose: Not Given Multivitamins/Vitamin C (Theragran) 1 tab PO DAILY [facility] Stop: 08/15/19 08:59 Last Admin: 06/23/19 08:40 Dose: 1 tab Quetiapine Fumarate (Seroquel) 300 mg PO HS [facility]; Protocol Stop: 08/15/19 20:59 Last Admin: 06/23/19 20:04 Dose: 300 mg Risperidone (Risperdal) 4 mg PO BID [facility]; Protocol Stop: 08/21/19 08:59 Last Admin: 06/23/19 16:42 Dose: 4 mg Trazodone HCl (Desyrel) 50 mg PO HS [facility]; Protocol Stop: 08/20/19 20:59 Last Admin: 06/23/19 20:04 Dose: 50 mg Zolpidem Tartrate (Ambien) 5 mg PO HS PRN PRN Reason: Insomnia Stop: 08/14/19 23:49 Last Admin: 06/21/19 21:14 Dose: 5 mg General: No acute distress HEENT: PERRLA Neck: Supple, JVD Cardiovascular: Regular rate, Normal S1, Normal S2 Lungs: Clear to auscultation Abdomen: Bowel sounds, Soft - Procedures Procedures: Procedures Procedure Code Date GROUP PSYCHOTHERAPY 01460 07/16/15 GROUP PSYCHOTHERAPY GZHZZZZ 07/16/15 INDIVID PSYCHOTHERAP NEC 94.39 09/06/13 OTHER GROUP THERAPY 94.44 05/03/14 RECREATIONAL THERAPY 93.81 08/25/12 Assessment/Plan - Problem List Patient Problems: All Active Problems Agitation (Acute) R45.1 - Assessment Assessment: HTN Seizure d/o psychosis DJD - Plan Plan: continue current treatment Nutritional Asmnt/Malnutr-PDOC - Dietary Evaluation Malnutrition Findings (Please click <Entered> for more info): Nutritional Asmnt/Malnutrition Start: 06/19/19 11: 43 Text: Status: Active Freq: Protocol: Document 06/19/19 11:43 ASH (Rec: 06/19/19 11:45 ASH [email or web address]) Nutritional Asmnt/Malnutrition Patient General Information Nutritional Screening Moderate Risk Diagnosis Psychosis NOS Pertinent Medical Hx/Surgical Hx HTN, DM, CVA/TIA, Dyslipidemia , Seizures, Arthritis, Dementia, Schizophrenia Subjective Information Pt is a 69-year-old male admitted on 06/15 d/t agitation and hallucinations. Pt is eating 75-100% of meals Per Meal/Nutrition Activity Record . Dietary is currently providing an estimated 1850 kcals and 82 gm Pro, per Pt PO intake this is providing an estimated 1620 kcals and 72gm Pro to meet 100+% kcal and 100 +% Pro needs. HT: 5 FT WT: 144 LB (65.45 kg) ABW: 116 LB (52.73 kg) BMI: 28.15 (Overweight) GI: WNL, flat, soft, non- tender BM: 06/19 x1 I/O: 1480/Not Noted Skin: WNL, intact Mansoor: 20 Diet Order: Na 2gm, NCS Estimated Energy Needs: ( Geriatric, ABW) 2034-3491 kcals (25-30 kcals/ kg) 53-63g Pro (1.0-1.2 g/kg) 9073-3947 ml (25-30 ml/kg) Current Diet Order/ Nutrition Support Na 2gm, NCS Pertinent Medications Maalox (PRN), Colace, Pepcid, Keppra, MOM (PRN), Theragran Pertinent Labs 06/17: Glucose 120, Alb 3.9 Nutritional Hx/Data Height 1.52 m Height (Calculated Centimeters) 152.4 Current Weight (lbs) 65.317 kg Weight (Calculated Kilograms) 65.3 Weight (Calculated Grams) 14708.3 [place] Body Weight 106 LB (48.18 kg) % [place] Body Weight 136 Body Mass Index (BMI) 28.1 Weight Status Overweight GI Symptoms GI Symptoms None Skin Integrity/Comment: Skin: WNL, intact Mansoor: 20 Current %PO Good (75-100%) Estimated Nutritional Goals BEE in Kcals: Adj wt of IBW Calories/Kcals/Kg 25-30 Kcals Calculated 6425-4172 Protein: Adj wt of IBW Protein g/k.0-1.2 Protein Calculated 53-63 Fluid: ml 4994-3055 ml (25-30 ml/kg) Nutritional Problem 1. Problem Problem Altered nutrient utilization Etiology related to endocrine dysfunction Signs/Symptoms: aeb Hx DM, Glucose 120. Malnutrition Related to Morbid Obesity Malnutrition related to morbid obesity No Intervention/Recommendation Comments Continue with Na 2gm, NCS diet as ordered. Expected Outcomes/Goals Expected Outcomes/Goals 1. PO intake to continue to meet >75% of nutritional needs . 2. Monitor PO intake, wt, nutrition related labs, and skin integrity. 3. F/U as low risk in 7 days, 06/26
[2019-06-24] MEDS: risperiDONE 4 mg Tab PO SCH ×2 (09:24→17:19)
[2019-06-24] MEDS: Multivitamin Tab PO SCH (09:24)
[2019-06-24] MEDS: Guaifenesin DM 10 ML UDC PO PRN (09:31)
--- NOTE | 2019-06-25 03:02 | Progress Notes ---
DATE: 06/24/2019 SUBJECTIVE: Chart reviewed and the patient interviewed. Also discussed the patient's condition with the staff and reviewed records and labs. The patient is still reporting auditory hallucinations and saying that the voices are loud and do not let him sleep at night. Also, is still anxious and isolative and tends to stay by himself in his room most of the time. He denies any intention to harm himself or others, but he still needs close monitoring and redirections. The patient is compliant with taking his medications. ASSESSMENT: The patient is still psychotic and reports auditory hallucinations. TREATMENT PLAN: Continue to monitor his behavior and his condition closely. Also, continue current medications and work on his psychosis. Also, Depakote blood level is pending. JOB# [id number]
[2019-06-25] MEDS: risperiDONE 4 mg Tab PO SCH ×2 (08:47→17:18)
[2019-06-25] MEDS: Multivitamin Tab PO SCH (08:47)
[2019-06-25] MEDS: Guaifenesin DM 10 ML UDC PO PRN ×2 (11:39→20:18)
--- NOTE | 2019-06-25 18:11 | General Progress Note ---
Subjective - Review of Systems Service Date: 06/25/19 Subjective: resting comfortably no distress Objective - Results Result Diagrams: 06/17/19 08:00 06/17/19 08:00 Recent Labs: Laboratory Last Values WBC 7.3 Th/cmm (4.8-10.8) 06/17/19 08:00 RBC 4.89 Mil/cmm (3.80-5.80) 06/17/19 08:00 Hgb 14.1 gm/dL (12-16) 06/17/19 08:00 Hct 42.1 % (41.0-60) 06/17/19 08:00 MCV 86.2 fl (80-99) 06/17/19 08:00 MCH 28.9 pg (27.0-31.0) 06/17/19 08:00 MCHC Differential 33.5 pg (28.0-36.0) 06/17/19 08:00 RDW 15.8 % (11.5-20.0) 06/17/19 08:00 Plt Count 239 Th/cmm (150-400) 06/17/19 08:00 MPV 8.0 fl 06/17/19 08:00 Neutrophils % 59.7 % (40.0-80.0) 06/17/19 08:00 Lymphocytes % 27.0 % (20.0-50.0) 06/17/19 08:00 Monocytes % 11.0 % (2.0-10.0) H 06/17/19 08:00 Eosinophils % 2.2 % (0.0-5.0) 06/17/19 08:00 Basophils % 0.1 % (0.0-2.0) 06/17/19 08:00 Sodium 136 mEq/L (136-145) 06/17/19 08:00 Potassium 4.0 mEq/L (3.5-5.1) 06/17/19 08:00 Chloride 101 mEq/L (98-107) 06/17/19 08:00 Carbon Dioxide 27.7 mEq/L (21.0-31.0) 06/17/19 08:00 Anion Gap 11.3 (7.0-16.0) 06/17/19 08:00 BUN 10 mg/dL (7-25) 06/17/19 08:00 Creatinine 0.8 mg/dL (0.7-1.3) 06/17/19 08:00 Est GFR ( Amer) > 60.0 ml/min (>90) 06/17/19 08:00 Est GFR (Non-Af Amer) > 60.0 ml/min 06/17/19 08:00 BUN/Creatinine Ratio 12.5 06/17/19 08:00 Glucose 120 mg/dL (70-105) H 06/17/19 08:00 Calcium 9.2 mg/dL (8.6-10.3) 06/17/19 08:00 Total Bilirubin 0.5 mg/dL (0.3-1.0) 06/17/19 08:00 AST 15 U/L (13-39) 06/17/19 08:00 ALT 7 U/L (7-52) 06/17/19 08:00 Alkaline Phosphatase 61 U/L (34-104) 06/17/19 08:00 Troponin I < 0.01 ng/mL (0.01-0.05) L 06/15/19 21:18 Total Protein 6.9 gm/dL (6.0-8.3) 06/17/19 08:00 Albumin 3.9 gm/dL (4.2-5.5) L 06/17/19 08:00 Globulin 3.0 gm/dL 06/17/19 08:00 Albumin/Globulin Ratio 1.3 (1.0-1.8) 06/17/19 08:00 Triglycerides 165 mg/dL (<150) H 06/15/19 05:15 Cholesterol 207 mg/dL (<200) H 06/15/19 05:15 LDL Cholesterol Direct 141 mg/dL (75-193) 06/15/19 05:15 HDL Cholesterol 60 mg/dL (23-92) 06/15/19 05:15 TSH 2.26 uIU/ml (0.34-5.60) 06/17/19 08:00 - Physical Exam Vitals and I&O: Vital Signs Temp 97.6 F 06/25/19 06:37 Pulse 110 06/25/19 17:19 Resp 18 06/25/19 08:00 BP 110/58 06/25/19 17:19 Pulse Ox 97 06/25/19 06:37 Intake & Output 06/24/19 06/25/19 06/25/19 18:59 06:59 18:59 Intake Total 1520 120 900 Balance 1520 120 900 Intake: Oral 1520 120 900 Other: # Voids 4 2 4 # Bowel Movements 1 1 Active Medications: Current Medications Acetaminophen (Tylenol) 650 mg PO Q4HR PRN PRN Reason: Mild Pain / Temp above 100 Stop: 08/14/19 23:49 Al Hydrox/Mg Hydrox/Simethicone (Maalox) 30 ml PO Q4HR PRN PRN Reason: GI DISTRESS Stop: 08/14/19 23:49 Last Admin: 06/23/19 19:49 Dose: 30 ml Divalproex Sodium (Depakote Dr) 250 mg PO BID [facility]; Protocol Stop: 08/18/19 08:59 Last Admin: 06/25/19 17:18 Dose: 250 mg Docusate Sodium (Colace) 250 mg PO DAILY [facility] Stop: 08/15/19 08:59 Last Admin: 06/25/19 08:48 Dose: 250 mg Famotidine (Pepcid) 40 mg PO DAILY [facility] Stop: 08/15/19 08:59 Last Admin: 06/25/19 08:50 Dose: 40 mg Guaifenesin/Dextromethorphan (Robitussin Dm) 10 ml PO Q6HR PRN PRN Reason: Cough Stop: 08/18/19 16:45 Last Admin: 06/25/19 11:39 Dose: 10 ml Levetiracetam (Keppra) 500 mg PO BID [facility] Stop: 08/15/19 08:59 Last Admin: 06/25/19 17:18 Dose: 500 mg Lorazepam (Ativan) 0.5 mg PO Q4HR PRN; Protocol PRN Reason: Anxiety Stop: 07/15/19 23:49 Last Admin: 06/25/19 17:18 Dose: 0.5 mg Magnesium Hydroxide (Milk Of Magnesia) 30 ml PO HS PRN PRN Reason: Constipation Metoprolol Tartrate (Lopressor) 50 mg PO BID [facility] Stop: 08/15/19 08:59 Last Admin: 06/25/19 17:19 Dose: Not Given Multivitamins/Vitamin C (Theragran) 1 tab PO DAILY [facility] Stop: 08/15/19 08:59 Last Admin: 06/25/19 08:47 Dose: 1 tab Quetiapine Fumarate (Seroquel) 300 mg PO HS [facility]; Protocol Stop: 08/15/19 20:59 Last Admin: 06/24/19 20:49 Dose: 300 mg Risperidone (Risperdal) 4 mg PO BID [facility]; Protocol Stop: 08/21/19 08:59 Last Admin: 06/25/19 17:18 Dose: 4 mg Trazodone HCl (Desyrel) 50 mg PO HS [facility]; Protocol Stop: 08/20/19 20:59 Last Admin: 06/24/19 20:49 Dose: 50 mg Zolpidem Tartrate (Ambien) 5 mg PO HS PRN PRN Reason: Insomnia Stop: 08/14/19 23:49 Last Admin: 06/21/19 21:14 Dose: 5 mg General: No acute distress HEENT: PERRLA Neck: Supple, JVD Cardiovascular: Regular rate, Normal S1, Normal S2 Lungs: Clear to auscultation Abdomen: Bowel sounds, Soft - Procedures Procedures: Procedures Procedure Code Date GROUP PSYCHOTHERAPY 71919 07/16/15 GROUP PSYCHOTHERAPY GZHZZZZ 07/16/15 INDIVID PSYCHOTHERAP NEC 94.39 09/06/13 OTHER GROUP THERAPY 94.44 05/03/14 RECREATIONAL THERAPY 93.81 08/25/12 Assessment/Plan - Problem List Patient Problems: All Active Problems Agitation (Acute) R45.1 - Assessment Assessment: HTN Seizure d/o psychosis DJD - Plan Plan: continue current treatment Nutritional Asmnt/Malnutr-PDOC - Dietary Evaluation Malnutrition Findings (Please click <Entered> for more info): Nutritional Asmnt/Malnutrition Start: 06/19/19 11: 43 Text: Status: Active Freq: Protocol: Document 06/19/19 11:43 ASH (Rec: 06/19/19 11:45 ASH [email or web address]) Nutritional Asmnt/Malnutrition Patient General Information Nutritional Screening Moderate Risk Diagnosis Psychosis NOS Pertinent Medical Hx/Surgical Hx HTN, DM, CVA/TIA, Dyslipidemia , Seizures, Arthritis, Dementia, Schizophrenia Subjective Information Pt is a 69-year-old male admitted on 06/15 d/t agitation and hallucinations. Pt is eating 75-100% of meals Per Meal/Nutrition Activity Record . Dietary is currently providing an estimated 1850 kcals and 82 gm Pro, per Pt PO intake this is providing an estimated 1620 kcals and 72gm Pro to meet 100+% kcal and 100 +% Pro needs. HT: 5 FT WT: 144 LB (65.45 kg) ABW: 116 LB (52.73 kg) BMI: 28.15 (Overweight) GI: WNL, flat, soft, non- tender BM: 06/19 x1 I/O: 1480/Not Noted Skin: WNL, intact Mansoor: 20 Diet Order: Na 2gm, NCS Estimated Energy Needs: ( Geriatric, ABW) 8940-9843 kcals (25-30 kcals/ kg) 53-63g Pro (1.0-1.2 g/kg) 7292-3278 ml (25-30 ml/kg) Current Diet Order/ Nutrition Support Na 2gm, NCS Pertinent Medications Maalox (PRN), Colace, Pepcid, Keppra, MOM (PRN), Theragran Pertinent Labs 06/17: Glucose 120, Alb 3.9 Nutritional Hx/Data Height 1.52 m Height (Calculated Centimeters) 152.4 Current Weight (lbs) 65.317 kg Weight (Calculated Kilograms) 65.3 Weight (Calculated Grams) 49091.3 [place] Body Weight 106 LB (48.18 kg) % [place] Body Weight 136 Body Mass Index (BMI) 28.1 Weight Status Overweight GI Symptoms GI Symptoms None Skin Integrity/Comment: Skin: WNL, intact Mansoor: 20 Current %PO Good (75-100%) Estimated Nutritional Goals BEE in Kcals: Adj wt of IBW Calories/Kcals/Kg 25-30 Kcals Calculated 2182-8648 Protein: Adj wt of IBW Protein g/k.0-1.2 Protein Calculated 53-63 Fluid: ml 7685-3660 ml (25-30 ml/kg) Nutritional Problem 1. Problem Problem Altered nutrient utilization Etiology related to endocrine dysfunction Signs/Symptoms: aeb Hx DM, Glucose 120. Malnutrition Related to Morbid Obesity Malnutrition related to morbid obesity No Intervention/Recommendation Comments Continue with Na 2gm, NCS diet as ordered. Expected Outcomes/Goals Expected Outcomes/Goals 1. PO intake to continue to meet >75% of nutritional needs . 2. Monitor PO intake, wt, nutrition related labs, and skin integrity. 3. F/U as low risk in 7 days, 06/26
--- NOTE | 2019-06-25 23:46 | Progress Notes ---
DATE: SUBJECTIVE: Chart reviewed and the patient interviewed. Also discussed the patient's condition with the staff and reviewed records and labs. The patient is still complaining of auditory hallucinations "a little less." The patient also is still suspicious and paranoid and also complaining of insomnia. He also still needs redirections and needs encouragement. Otherwise, the patient is denying any intention to harm himself or others. He is also compliant with taking his medications. ASSESSMENT: The patient is still psychotic and needs close monitoring. TREATMENT PLAN: Continue Risperdal, Depakote, Seroquel and trazodone. Depakote blood level is pending. Also, continue to work on his agitation and continue to follow up. JOB# [id number]
--- NOTE | 2019-06-26 07:15 | Discharge Summary ---
DATE OF DISCHARGE: 06/26/2019 DATE OF DISCHARGE: 06/26/2019 PATIENT'S AGE: 69. SEX: Male. PHYSICIAN: Libertad Hickye M.D., M.P.H. FINAL DIAGNOSES: PRIMARY DIAGNOSIS: Schizophrenia. SECONDARY DIAGNOSIS: Dementia, [id number] stage. REASON FOR HOSPITALIZATION: The patient was admitted to the hospital because of increased hallucinations and because of confusion. The patient was hearing voices, making him agitated and in angry and irritable mood. HOSPITAL COURSE: The patient continued to report auditory hallucinations. The patient also was restless and he was in irritable mood. He also wanted to be left alone. The patient also was having difficulty following directions. He was not suicidal or homicidal, but he was continuously complaining of auditory hallucinations. The patient continued to take Depakote 250 mg twice a day, but the patient was given Risperdal and the dose increased to 4 mg twice a day. Also was given Seroquel in a dose of 300 mg at bedtime. Gradually, the patient's affect was brighter. The patient was less irritable and less agitated. The patient also was cooperative with treatment and with no major behavior problems, and the patient was discharged from the hospital. PHYSICAL EXAMINATION: The patient basically showed no major medical problems. AFTER DISCHARGE PLANS: The patient discharged from the hospital and then to [place] with plans to follow him there. EXPECTED OUTCOME AFTER DISCHARGE: Fair if the patient continued to take his medications and follow up with discharge plans. [facility]# [id number]
[2019-06-26] MEDS: risperiDONE 4 mg Tab PO SCH (09:53)
[2019-06-26] MEDS: Multivitamin Tab PO SCH (09:55)
[2019-06-26] MEDS: Guaifenesin DM 10 ML UDC PO PRN (10:27)
== END 2019-06-26 16:00 | DRG 885 ==
LOC: ER 20:34 → GERO 22:31
PROVIDERS: ADMIT Psychiatry & Neurology Psychiatry; ATTEND Psychiatry & Neurology Psychiatry
DX: F29 Unspecified psychosis not due to a substance or known physiological condition (principal); F20.9 Schizophrenia, unspecified; I10 Essential (primary) hypertension; G40.909 Epilepsy, unspecified, not intractable, without status epilepticus; M19.90 Unspecified osteoarthritis, unspecified site; F03.90 Unspecified dementia, unspecified severity, without behavioral disturbance, psychotic disturbance, mood disturbance, and anxiety; K21.9 Gastro-esophageal reflux disease without esophagitis; E11.9 Type 2 diabetes mellitus without complications; E78.5 Hyperlipidemia, unspecified; Z86.73 Personal history of transient ischemic attack (TIA), and cerebral infarction without residual deficits; Z87.11 Personal history of peptic ulcer disease; Z79.899 Other long term (current) drug therapy
CPT/HCPCS: 36415-UA; 71045-TC; 80053-TC; 80061-TC; 83036-90; 84443-TC; 84484-TC; 85025-TC; 90899; G0410; Z7610

== ENCOUNTER 2019-11-08 12:32 | Inpatient (IN) | payer MEDICARE, MEDICAID ==
[2019-11-08] MEDS ORDERED: Magnesium Hydroxide (MOM) 30 mL UDC PO PRN (19:59)
[2019-11-08 20:40] VITALS: BP 132/79
[2019-11-09] MEDS: Multivitamin Tab PO SCH (08:19)
--- NOTE | 2019-11-09 12:12 | History & Physical ---
ADMIT DATE: 11/08/2019 IDENTIFYING INFORMATION: The patient is a 69-year-old male. CHIEF COMPLAINT: No answer. HISTORY OF PRESENT ILLNESS: The patient was brought from [place] because of psychosis. The patient was having visual hallucinations, seeing 6, hearing voices telling him so many things, but could not elaborate. I have seen him last week, he was at that time psychotic, hearing voices. The patient was medically cleared at [facility] with a history of paranoid schizophrenia, depression and bipolar disorder. The patient was a poor historian, would not cooperate in any formal mental status examination. He was sleepy. PAST PSYCHIATRIC HISTORY: Multiple admissions to this facility and other facility for similar reasons with long history of psychosis. MEDICAL HISTORY: Hypertension, osteoarthritis, seizure disorder, hyperlipidemia, COPD. The patient is ambulatory. He is continent for bowel and bladder. ALLERGIES: THE PATIENT IS ALLERGIC TO FLUPHENAZINE, TRIFLUOPERAZINE. FAMILY AND SOCIAL HISTORY: The patient is single, not , no children. Denies substance abuse, unable to give much information. MENTAL STATUS EXAMINATION: The patient is appropriately dressed and groomed who looks disheveled, internally preoccupied. He was unable to participate in a meaningful conversation. Unable to tell me the date, where he is, why he is here. He was internally preoccupied, responding to internal stimuli. When asked about suicide, homicide he kept quiet. ____ he seems to have average intelligence. He is unable to participate in memory testing or formal mental status examination because of psychosis. His insight about his illness is poor, does not realize his problem. Judgment is poor because of his psychosis. IMPRESSION: Schizoaffective disorder, bipolar type. MEDICAL DIAGNOSES: As per medical doctor. PLAN: The patient will be started back on medications Depakote and Seroquel, discussed side effects. We will do group therapy, milieu therapy, and individual therapy. ESTIMATED LENGTH OF STAY: 3-7 days. DISCHARGE CRITERIA: Decrease in psychosis, agitation. After discharge, outpatient treatment. JOB# [id number]
--- NOTE | 2019-11-09 18:17 | History & Physical ---
ADMIT DATE: HISTORY OF PRESENT ILLNESS: The patient is a 69-year-old male with long history of hypertension, gastroesophageal reflux, seizure disorder, dementia, and psychosis, admitted to [facility] under Dr. Peguero's service for evaluation and treatment. No fever, no chills. The patient has some cough. PAST MEDICAL HISTORY: Significant for hypertension, gastroesophageal reflux, seizure disorder, dementia, psychosis. PAST SURGICAL HISTORY: No recent surgery. ALLERGIES: FLUPHENAZINE and TRIFLUOPERAZINE. SOCIAL HISTORY: He is a nonsmoker, no alcohol, no drug. FAMILY HISTORY: Noncontributory. MEDICATIONS: Follow admission reconciliation. REVIEW OF SYSTEMS: RENAL SYSTEM: No history of chronic renal disorder. CARDIOVASCULAR SYSTEM: He has history of hypertension. ENDOCRINE SYSTEM: No diabetes or thyroid problem. GASTROINTESTINAL SYSTEM: No upper or lower gastrointestinal bleed. NEUROLOGICAL SYSTEM: He has history of seizure disorder. MUSCULOSKELETAL SYSTEM: No muscular dystrophy. HEMATOLOGIC SYSTEM: No bleeding tendencies. RESPIRATORY SYSTEM: He has cough. No asthma. GENITOURINARY SYSTEM: No dysuria or hematuria. PHYSICAL EXAMINATION: GENERAL: He is awake, alert, not coherent. VITAL SIGNS: Temperature 98.7, heart rate 90, blood pressure 118/66. HEENT: Normocephalic. Pupils reacting equal to light and accommodation. Sclerae clear. NECK: Supple. Negative for lymphadenopathy, JVD or bruit. CHEST: Air bilaterally normal. No rhonchi or wheezing. HEART: S1, S2 normal. No gallop rhythm. ABDOMEN: Soft, bowel sounds positive. EXTREMITIES: No edema. NEUROLOGIC: He is awake, alert, not fully oriented. No focal muscle deficits. Cranial nerves 2-12 are intact. ASSESSMENT: 1. Hypertension. 2. Gastroesophageal reflux. 3. Seizure disorder. 4. Psychosis. PLAN: The patient in the hospital under Dr. Peguero's service. Medical problem during hospitalization is psychosis. Medical problems addressed at discharge are hypertension, gastroesophageal reflux, seizure disorder. The patient is medically stable for activity. Thank you, Dr. Peguero, for asking me to see your patient. The patient will continue with current medications and diet. The patient is a full code. JOB# [id number]
[2019-11-09] MEDS: Guaifenesin DM 10 ML UDC PO SCH (20:28)
[2019-11-10] MEDS: Guaifenesin DM 10 ML UDC PO SCH ×3 (05:13→20:18)
[2019-11-10] MEDS: Multivitamin Tab PO SCH (09:09)
--- NOTE | 2019-11-10 21:18 | Internal Medicine Prog Note ---
Internal Medicine Subjective - Subjective Service Date: 11/10/19 Patient seen and examined:: without staff (HE IS DOING WELL,CONFUSED) Patient is:: awake, verbal, ambulating, confused Per staff patient has:: no adverse event Internal Medicine Objective - Physical Exam Vitals and I&O: Vital Signs Temp 99.0 F 11/10/19 20:50 Pulse 100 11/10/19 20:50 Resp 20 11/10/19 20:50 BP 95/53 11/10/19 20:50 Pulse Ox 94 11/10/19 20:50 Intake & Output 11/10/19 11/10/19 11/11/19 06:59 18:59 06:59 Intake Total 480 1200 240 Balance 480 1200 240 Intake: Oral 480 960 240 Other 240 Other: # Voids 1 3 2 # Bowel Movements 0 Active Medications: Current Medications Acetaminophen (Tylenol) 650 mg PO Q4HR PRN PRN Reason: Pain (Mild 1-3) Stop: 01/07/20 20:40 Al Hydrox/Mg Hydrox/Simethicone (Maalox) 30 ml PO Q4HR PRN PRN Reason: GI DISTRESS Stop: 01/07/20 19:58 Divalproex Sodium (Depakote Dr) 250 mg PO BID [facility]; Protocol Stop: 01/08/20 16:59 Last Admin: 11/10/19 16:55 Dose: 250 mg Docusate Sodium (Colace) 250 mg PO DAILY [facility] Stop: 01/08/20 08:59 Last Admin: 11/10/19 09:09 Dose: 250 mg Famotidine (Pepcid) 40 mg PO DAILY [facility] Stop: 01/08/20 08:59 Last Admin: 11/10/19 09:10 Dose: 40 mg Guaifenesin/Dextromethorphan (Robitussin Dm) 10 ml PO Q8HR [facility] Stop: 11/14/19 20:59 Last Admin: 11/10/19 20:18 Dose: 10 ml Levetiracetam (Keppra) 500 mg PO DAILY [facility] Stop: 01/08/20 08:59 Last Admin: 11/10/19 09:09 Dose: 500 mg Lorazepam (Ativan) 0.5 mg PO Q4HR PRN; Protocol PRN Reason: Anxiety Stop: 12/08/19 19:58 Last Admin: 11/10/19 17:09 Dose: 0.5 mg Magnesium Hydroxide (Milk Of Magnesia) 30 ml PO HS PRN PRN Reason: Constipation Metoprolol Tartrate (Lopressor) 50 mg PO DAILY [facility] Stop: 01/08/20 08:59 Last Admin: 11/10/19 09:10 Dose: 50 mg Multivitamins/Vitamin C (Theragran) 1 tab PO DAILY [facility] Stop: 01/08/20 08:59 Last Admin: 11/10/19 09:09 Dose: 1 tab Quetiapine Fumarate (Seroquel) 300 mg PO BID [facility]; Protocol Stop: 01/08/20 16:59 Last Admin: 11/10/19 16:55 Dose: 300 mg Zolpidem Tartrate (Ambien) 5 mg PO HS PRN PRN Reason: Insomnia Stop: 01/07/20 19:58 Last Admin: 11/10/19 20:18 Dose: 5 mg General: demented HEENT: NC/AT, PERRLA, EOMI, anicteric sclerae, throat clear Neck: Supple, No JVD, No thyromegaly, +2 carotid pulse wo bruit, No LAD Lungs: CTAB Cardiovascular: RRR, Normal S1, Normal S2, without murmur Abdomen: soft, non-tender, non-distended Extremities: clear Neurological: no change - Procedures Procedures: Procedures Procedure Code Date GROUP PSYCHOTHERAPY 32163 07/16/15 GROUP PSYCHOTHERAPY GZHZZZZ 07/16/15 INDIVID PSYCHOTHERAP NEC 94.39 09/06/13 OTHER GROUP THERAPY 94.44 05/03/14 RECREATIONAL THERAPY 93.81 08/25/12 Internal Medicine Assmt/Plan - Assessment Assessment: 1.HTN. 2.SEIZURE DISORDER 3.HONORIO. 4.PSYCHSIS - Plan Plan: CONTINUE ON CURRENT MEDICATION AND DIET
--- NOTE | 2019-11-11 02:30 | Progress Notes ---
DATE: 11/10/2019 IDENTIFYING DATA: A 69-year-old male brought in here from [place] because of psychosis, visual hallucinations, hearing voices telling him so many things that he could not elaborate. Today on [id number] evaluation, the patient hyperfocused on Ativan, reporting that he needs Ativan, hearing voices, would not elaborate on the specifics. MENTAL STATUS EXAMINATION: Command type auditory hallucinations, delusions. ASSESSMENT AND PLAN: The patient is a 69-year-old male with a history of schizophrenia. We will continue with the current adjustment medications, reconciliation of medication reviewed, Seroquel 300 mg p.o. b.i.d., Depakote 250 b.i.d. Pending Depakote levels. JOB# [id number]
[2019-11-11] MEDS: Guaifenesin DM 10 ML UDC PO SCH ×3 (05:22→20:59)
[2019-11-11] MEDS: Multivitamin Tab PO SCH (09:03)
--- NOTE | 2019-11-11 16:42 | Internal Medicine Prog Note ---
Internal Medicine Subjective - Subjective Service Date: 11/11/19 Patient seen and examined:: without staff (HE FEELS WELL) Patient is:: awake, verbal, ambulating, confused Per staff patient has:: no adverse event Internal Medicine Objective - Physical Exam Vitals and I&O: Vital Signs Temp 98.7 F 11/11/19 14:03 Pulse 92 11/11/19 14:03 Resp 20 11/11/19 14:03 BP 99/66 11/11/19 14:03 Pulse Ox 96 11/11/19 14:03 Intake & Output 11/10/19 11/11/19 11/11/19 18:59 06:59 18:59 Intake Total 1200 240 Balance 1200 240 Intake: Oral 960 240 Other 240 Other: # Voids 3 1 # Bowel Movements 0 Active Medications: Current Medications Acetaminophen (Tylenol) 650 mg PO Q4HR PRN PRN Reason: Pain (Mild 1-3) Stop: 01/07/20 20:40 Al Hydrox/Mg Hydrox/Simethicone (Maalox) 30 ml PO Q4HR PRN PRN Reason: GI DISTRESS Stop: 01/07/20 19:58 Divalproex Sodium (Depakote Dr) 250 mg PO BID [facility]; Protocol Stop: 01/08/20 16:59 Last Admin: 11/11/19 16:13 Dose: 250 mg Docusate Sodium (Colace) 250 mg PO DAILY [facility] Stop: 01/08/20 08:59 Last Admin: 11/11/19 09:03 Dose: 250 mg Famotidine (Pepcid) 40 mg PO DAILY [facility] Stop: 01/08/20 08:59 Last Admin: 11/11/19 09:03 Dose: 40 mg Guaifenesin/Dextromethorphan (Robitussin Dm) 10 ml PO Q8HR [facility] Stop: 11/14/19 20:59 Last Admin: 11/11/19 13:04 Dose: 10 ml Levetiracetam (Keppra) 500 mg PO DAILY [facility] Stop: 01/08/20 08:59 Last Admin: 11/11/19 09:03 Dose: 500 mg Lorazepam (Ativan) 0.5 mg PO Q4HR PRN; Protocol PRN Reason: Anxiety Stop: 12/08/19 19:58 Last Admin: 11/11/19 16:13 Dose: 0.5 mg Magnesium Hydroxide (Milk Of Magnesia) 30 ml PO HS PRN PRN Reason: Constipation Metoprolol Tartrate (Lopressor) 50 mg PO DAILY [facility] Stop: 01/08/20 08:59 Last Admin: 11/11/19 09:03 Dose: 50 mg Multivitamins/Vitamin C (Theragran) 1 tab PO DAILY [facility] Stop: 01/08/20 08:59 Last Admin: 11/11/19 09:03 Dose: 1 tab Quetiapine Fumarate (Seroquel) 300 mg PO BID [facility]; Protocol Stop: 01/08/20 16:59 Last Admin: 11/11/19 16:13 Dose: 300 mg Zolpidem Tartrate (Ambien) 5 mg PO HS PRN PRN Reason: Insomnia Stop: 01/07/20 19:58 Last Admin: 11/10/19 20:18 Dose: 5 mg General: demented HEENT: NC/AT, PERRLA, EOMI, anicteric sclerae, throat clear Neck: Supple, No JVD, No thyromegaly, +2 carotid pulse wo bruit, No LAD Lungs: CTAB Cardiovascular: RRR, Normal S1, Normal S2, without murmur Abdomen: soft, non-tender, non-distended Extremities: clear Neurological: no change - Procedures Procedures: Procedures Procedure Code Date GROUP PSYCHOTHERAPY 25570 07/16/15 GROUP PSYCHOTHERAPY GZHZZZZ 07/16/15 INDIVID PSYCHOTHERAP NEC 94.39 09/06/13 OTHER GROUP THERAPY 94.44 05/03/14 RECREATIONAL THERAPY 93.81 08/25/12 Internal Medicine Assmt/Plan - Assessment Assessment: 1.HTN. 2.SEIZURE DISORDER 3.HONORIO. 4.PSYCHSIS - Plan Plan: CONTINUE ON CURRENT MEDICATION AND DIET
--- NOTE | 2019-11-12 02:05 | Progress Notes ---
DATE: 11/11/2019 SUBJECTIVE: The patient was seen and evaluated. The patient's chart reviewed. Today, on [id number] evaluation, the patient perseverates about getting Ativan. I discussed with him all other alternatives of medications. No oversedation. MENTAL STATUS EXAMINATION: Anxious, restless, delusional. ASSESSMENT AND PLAN: A 69-year-old male with history of schizophrenia. We will continue with the current medication regimen of both Depakote and Seroquel to continue targeting the patient's symptoms. JOB# [id number]
[2019-11-12] MEDS: Guaifenesin DM 10 ML UDC PO SCH ×3 (05:55→20:39)
[2019-11-12] MEDS: Multivitamin Tab PO SCH (08:53)
--- NOTE | 2019-11-12 17:39 | Internal Medicine Prog Note ---
Internal Medicine Subjective - Subjective Service Date: 11/12/19 Patient seen and examined:: without staff (he is doig better) Patient is:: awake, verbal, ambulating, confused Per staff patient has:: no adverse event Internal Medicine Objective - Physical Exam Vitals and I&O: Vital Signs Temp 98.9 F 11/12/19 14:00 Pulse 91 11/12/19 14:00 Resp 20 11/12/19 14:00 BP 98/63 11/12/19 14:00 Pulse Ox 98 11/12/19 14:00 Intake & Output 11/11/19 11/12/19 11/12/19 18:59 06:59 18:59 Intake Total 240 Balance 240 Intake: Oral 240 Other: # Voids 3 3 # Bowel Movements 1 0 Active Medications: Current Medications Acetaminophen (Tylenol) 650 mg PO Q4HR PRN PRN Reason: Pain (Mild 1-3) Stop: 01/07/20 20:40 Al Hydrox/Mg Hydrox/Simethicone (Maalox) 30 ml PO Q4HR PRN PRN Reason: GI DISTRESS Stop: 01/07/20 19:58 Divalproex Sodium (Depakote Dr) 250 mg PO BID [facility]; Protocol Stop: 01/08/20 16:59 Last Admin: 11/12/19 16:41 Dose: 250 mg Docusate Sodium (Colace) 250 mg PO DAILY [facility] Stop: 01/08/20 08:59 Last Admin: 11/12/19 08:53 Dose: 250 mg Famotidine (Pepcid) 40 mg PO DAILY [facility] Stop: 01/08/20 08:59 Last Admin: 11/12/19 08:53 Dose: 40 mg Guaifenesin/Dextromethorphan (Robitussin Dm) 10 ml PO Q8HR [facility] Stop: 11/14/19 20:59 Last Admin: 11/12/19 12:30 Dose: 10 ml Levetiracetam (Keppra) 500 mg PO DAILY [facility] Stop: 01/08/20 08:59 Last Admin: 11/12/19 08:53 Dose: 500 mg Lorazepam (Ativan) 0.5 mg PO Q4HR PRN; Protocol PRN Reason: Anxiety Stop: 12/08/19 19:58 Last Admin: 11/11/19 16:13 Dose: 0.5 mg Magnesium Hydroxide (Milk Of Magnesia) 30 ml PO HS PRN PRN Reason: Constipation Metoprolol Tartrate (Lopressor) 50 mg PO DAILY [facility] Stop: 01/08/20 08:59 Last Admin: 11/12/19 08:53 Dose: 50 mg Multivitamins/Vitamin C (Theragran) 1 tab PO DAILY [facility] Stop: 01/08/20 08:59 Last Admin: 11/12/19 08:53 Dose: 1 tab Quetiapine Fumarate 300 mg/ (Quetiapine Fumarate 50 mg) 350 mg PO BID [facility] Stop: 01/11/20 16:59 Last Admin: 11/12/19 16:40 Dose: 350 mg Zolpidem Tartrate (Ambien) 5 mg PO HS PRN PRN Reason: Insomnia Stop: 01/07/20 19:58 Last Admin: 11/11/19 20:59 Dose: 5 mg General: demented HEENT: NC/AT, PERRLA, EOMI, anicteric sclerae, throat clear Neck: Supple, No JVD, No thyromegaly, +2 carotid pulse wo bruit, No LAD Lungs: CTAB Cardiovascular: RRR, Normal S1, Normal S2, without murmur Abdomen: soft, non-tender, non-distended Extremities: clear Neurological: no change - Procedures Procedures: Procedures Procedure Code Date GROUP PSYCHOTHERAPY 98487 07/16/15 GROUP PSYCHOTHERAPY GZHZZZZ 07/16/15 INDIVID PSYCHOTHERAP NEC 94.39 09/06/13 OTHER GROUP THERAPY 94.44 05/03/14 RECREATIONAL THERAPY 93.81 08/25/12 Internal Medicine Assmt/Plan - Assessment Assessment: 1.HTN. 2.SEIZURE DISORDER 3.HONORIO. 4.PSYCHSIS - Plan Plan: CONTINUE ON CURRENT MEDICATION AND DIET
--- NOTE | 2019-11-12 17:45 | Progress Notes ---
DATE: 11/12/2019 SUBJECTIVE: Case was discussed with staff of the patient, reviewed records. The patient continues to have mood swings, irritability, talking to himself, responding to internal stimuli. Continues to be looking disheveled, disorganized, and easily agitated. He is sleeping well and eating well. I will be increasing his Seroquel to 350 mg twice a day. No side effects with the medication, no sedation, no nausea, no extrapyramidal symptoms. Vital signs stable. Gait is normal. We will continue outpatient group therapy, milieu therapy, and adjust medications as needed. JOB# [id number]
[2019-11-13] MEDS: Guaifenesin DM 10 ML UDC PO SCH ×3 (05:20→21:04)
[2019-11-13] MEDS: Multivitamin Tab PO SCH (08:30)
--- NOTE | 2019-11-13 21:23 | Internal Medicine Prog Note ---
Internal Medicine Subjective - Subjective Service Date: 11/13/19 Patient seen and examined:: without staff (HE IS DOING BETTER,STILL CONFUSED) Patient is:: awake, verbal, ambulating, confused Per staff patient has:: no adverse event Internal Medicine Objective - Physical Exam Vitals and I&O: Vital Signs Temp 97.6 F 11/13/19 14:00 Pulse 90 11/13/19 14:00 Resp 18 11/13/19 14:00 BP 102/58 11/13/19 14:00 Pulse Ox 95 11/13/19 14:00 Intake & Output 11/13/19 11/13/19 11/14/19 06:59 18:59 06:59 Intake Total 120 600 Balance 120 600 Intake: Oral 120 600 Other: # Voids 3 # Bowel Movements 0 Active Medications: Current Medications Acetaminophen (Tylenol) 650 mg PO Q4HR PRN PRN Reason: Pain (Mild 1-3) Stop: 01/07/20 20:40 Al Hydrox/Mg Hydrox/Simethicone (Maalox) 30 ml PO Q4HR PRN PRN Reason: GI DISTRESS Stop: 01/07/20 19:58 Divalproex Sodium (Depakote Dr) 250 mg PO BID [facility]; Protocol Stop: 01/08/20 16:59 Last Admin: 11/13/19 17:02 Dose: 250 mg Docusate Sodium (Colace) 250 mg PO DAILY [facility] Stop: 01/08/20 08:59 Last Admin: 11/13/19 08:29 Dose: 250 mg Famotidine (Pepcid) 40 mg PO DAILY [facility] Stop: 01/08/20 08:59 Last Admin: 11/13/19 08:30 Dose: 40 mg Guaifenesin/Dextromethorphan (Robitussin Dm) 10 ml PO Q8HR [facility] Stop: 11/14/19 20:59 Last Admin: 11/13/19 21:04 Dose: 10 ml Levetiracetam (Keppra) 500 mg PO DAILY [facility] Stop: 01/08/20 08:59 Last Admin: 11/13/19 08:30 Dose: 500 mg Lorazepam (Ativan) 0.5 mg PO Q4HR PRN; Protocol PRN Reason: Anxiety Stop: 12/08/19 19:58 Last Admin: 11/11/19 16:13 Dose: 0.5 mg Magnesium Hydroxide (Milk Of Magnesia) 30 ml PO HS PRN PRN Reason: Constipation Metoprolol Tartrate (Lopressor) 50 mg PO DAILY [facility] Stop: 01/08/20 08:59 Last Admin: 11/13/19 08:30 Dose: 50 mg Multivitamins/Vitamin C (Theragran) 1 tab PO DAILY [facility] Stop: 01/08/20 08:59 Last Admin: 11/13/19 08:30 Dose: 1 tab Quetiapine Fumarate 300 mg/ (Quetiapine Fumarate 50 mg) 350 mg PO BID [facility] Stop: 01/11/20 16:59 Last Admin: 11/13/19 17:02 Dose: 350 mg Zolpidem Tartrate (Ambien) 5 mg PO HS PRN PRN Reason: Insomnia Stop: 01/07/20 19:58 Last Admin: 11/13/19 21:05 Dose: 5 mg General: demented HEENT: NC/AT, PERRLA, EOMI, anicteric sclerae, throat clear Neck: Supple, No JVD, No thyromegaly, +2 carotid pulse wo bruit, No LAD Lungs: CTAB Cardiovascular: RRR, Normal S1, Normal S2, without murmur Abdomen: soft, non-tender, non-distended Extremities: clear Neurological: no change - Procedures Procedures: Procedures Procedure Code Date GROUP PSYCHOTHERAPY 65464 07/16/15 GROUP PSYCHOTHERAPY GZHZZZZ 07/16/15 INDIVID PSYCHOTHERAP NEC 94.39 09/06/13 OTHER GROUP THERAPY 94.44 05/03/14 RECREATIONAL THERAPY 93.81 08/25/12 Internal Medicine Assmt/Plan - Assessment Assessment: 1.HTN. 2.SEIZURE DISORDER 3.HONORIO. 4.PSYCHSIS - Plan Plan: CONTINUE ON CURRENT MEDICATION AND DIET
--- NOTE | 2019-11-14 00:30 | Progress Notes ---
DATE: 11/13/2019 Case was discussed with staff of the patient, reviewed records. The patient continues to be rambling, hearing voices. He reported they mumble. He is not sure exactly what they tell him, but he talks to himself. Continues to look disheveled, disorganized, internally preoccupied. He wants to go to [place] upon discharge. He is compliant with the medication with no side effects, no sedation, no nausea, no extrapyramidal symptoms. Tolerating increase in his Seroquel yesterday We will continue outpatient group therapy, milieu therapy, and adjust medication as needed. JOB# [id number] FABIOLA
[2019-11-14] MEDS: Guaifenesin DM 10 ML UDC PO SCH ×2 (05:41→16:30)
[2019-11-14] MEDS: Multivitamin Tab PO SCH (08:51)
[2019-11-14] MEDS: QUEtiapine Fumarate 300 MG, QUEtiapine Fumarate 50 MG, QUEtiapine Fumarate 25 MG PO SCH (16:30)
--- NOTE | 2019-11-14 19:06 | Progress Notes ---
DATE: 11/14/2019 SUBJECTIVE: Case was discussed with staff of the patient, reviewed records. The patient reports he needs his medication adjusted. He said he is still hearing voices. He is distraught, overwhelmed. He is sleeping better, eating better. He denies any side effects with the medication, no sedation, no nausea, no extrapyramidal symptoms. I will be increasing his Seroquel 375 mg twice a day to help improve his psychotic symptoms. No side effects with the medication, no sedation, no nausea and no extrapyramidal symptoms. He will continue outpatient group therapy, milieu therapy, and adjust medication as needed. JOB# [id number]
--- NOTE | 2019-11-14 20:40 | Internal Medicine Prog Note ---
Internal Medicine Subjective - Subjective Service Date: 11/14/19 Patient seen and examined:: without staff (HE IS DOING WELL) Patient is:: awake, verbal, ambulating, confused Per staff patient has:: no adverse event Internal Medicine Objective - Physical Exam Vitals and I&O: Vital Signs Temp 97.6 F 11/14/19 20:00 Pulse 90 11/14/19 20:00 Resp 20 11/14/19 20:00 BP 117/81 11/14/19 20:00 Pulse Ox 98 11/14/19 20:00 Intake & Output 11/14/19 11/14/19 11/15/19 06:59 18:59 06:59 Intake Total 570 Balance 570 Intake: Oral 570 Other: # Voids 3 3 # Bowel Movements 0 0 Active Medications: Current Medications Acetaminophen (Tylenol) 650 mg PO Q4HR PRN PRN Reason: Pain (Mild 1-3) Stop: 01/07/20 20:40 Al Hydrox/Mg Hydrox/Simethicone (Maalox) 30 ml PO Q4HR PRN PRN Reason: GI DISTRESS Stop: 01/07/20 19:58 Divalproex Sodium (Depakote Dr) 250 mg PO BID [facility]; Protocol Stop: 01/08/20 16:59 Last Admin: 11/14/19 16:30 Dose: 250 mg Docusate Sodium (Colace) 250 mg PO DAILY [facility] Stop: 01/08/20 08:59 Last Admin: 11/14/19 08:51 Dose: 250 mg Famotidine (Pepcid) 40 mg PO DAILY [facility] Stop: 01/08/20 08:59 Last Admin: 11/14/19 08:50 Dose: 40 mg Guaifenesin/Dextromethorphan (Robitussin Dm) 10 ml PO Q8HR [facility] Stop: 11/14/19 20:59 Last Admin: 11/14/19 16:30 Dose: Not Given Levetiracetam (Keppra) 500 mg PO DAILY [facility] Stop: 01/08/20 08:59 Last Admin: 11/14/19 08:50 Dose: 500 mg Lorazepam (Ativan) 0.5 mg PO Q4HR PRN; Protocol PRN Reason: Anxiety Stop: 12/08/19 19:58 Last Admin: 11/11/19 16:13 Dose: 0.5 mg Magnesium Hydroxide (Milk Of Magnesia) 30 ml PO HS PRN PRN Reason: Constipation Metoprolol Tartrate (Lopressor) 50 mg PO DAILY [facility] Stop: 01/08/20 08:59 Last Admin: 11/14/19 09:00 Dose: 50 mg Multivitamins/Vitamin C (Theragran) 1 tab PO DAILY [facility] Stop: 01/08/20 08:59 Last Admin: 11/14/19 08:51 Dose: 1 tab Quetiapine Fumarate 300 mg/Quetiapine Fumarate 50 mg/Quetiapine Fumarate 25 mg 375 mg PO BID [facility] Stop: 01/13/20 16:59 Last Admin: 11/14/19 16:30 Dose: 375 mg Zolpidem Tartrate (Ambien) 5 mg PO HS PRN PRN Reason: Insomnia Stop: 01/07/20 19:58 Last Admin: 11/13/19 21:05 Dose: 5 mg General: demented HEENT: NC/AT, PERRLA, EOMI, anicteric sclerae, throat clear Neck: Supple, No JVD, No thyromegaly, +2 carotid pulse wo bruit, No LAD Lungs: CTAB Cardiovascular: RRR, Normal S1, Normal S2, without murmur Abdomen: soft, non-tender, non-distended Extremities: clear Neurological: no change - Procedures Procedures: Procedures Procedure Code Date GROUP PSYCHOTHERAPY 93043 07/16/15 GROUP PSYCHOTHERAPY GZHZZZZ 07/16/15 INDIVID PSYCHOTHERAP NEC 94.39 09/06/13 OTHER GROUP THERAPY 94.44 05/03/14 RECREATIONAL THERAPY 93.81 08/25/12 Internal Medicine Assmt/Plan - Assessment Assessment: 1.HTN. 2.SEIZURE DISORDER 3.HONORIO. 4.PSYCHSIS - Plan Plan: CONTINUE ON CURRENT MEDICATION AND DIET Nutritional Asmnt/Malnutr-PDOC - Dietary Evaluation Malnutrition Findings (Please click <Entered> for more info): Nutritional Asmnt/Malnutrition Start: 11/14/19 12: 39 Text: Status: Complete Freq: Protocol: Document 11/14/19 12:46 ASH (Rec: 11/14/19 12:50 ASH [id number]) Nutritional Asmnt/Malnutrition Patient General Information Nutritional Screening Low Risk Diagnosis Psychosis Pertinent Medical Hx/Surgical Hx HTN, GERD, Seizure disorder, Dementia, Psychosis Subjective Information Pt is a 69-year-old male admitted on 11/14 d/t psychosis , hallucinations and voices. Pt is eating an estimated 90% of meals Per Meal/Nutrition Activity Record. Dietary is currently providing an estimated 2500 kcals and 108 gm Pro, per Pt PO intake this is providing an estimated 2250 kcals and 97gm Pro to meet 100+% kcal and 100+% Pro needs . Anthropometrics HT: 5 FT WT: 138 LB (62.73 kg) BMI: 26.98 (Overweight) GI/ Skin Integrity GI: WNL, Soft, Flat, Non- tender BM: 11/12 x1 I/O: 1170/Not Noted Skin: Dryness, multiple small scabs to lower extremities, self-inflicted [place]: 21 Diet Order: Mechanical Soft, MAURA Estimated Energy Needs: ( Geriatric, CBW) 9778-9963 kcals (25-30 kcals/ kg) 60-75g Pro (1.0-1.2 g/kg) 5850-4152 ml (25-30 ml/kg) Current Diet Order/ Nutrition Support Mechanical Soft, MAURA Pertinent Medications Maalox (PRN), Colace, Pepcid, MOM (PRN), Theragran Pertinent Labs 11/09: Chol 217, LDL 123, A1c 6. 0% Nutritional Hx/Data Height 1.52 m Height (Calculated Centimeters) 152.4 Current Weight (lbs) 62.596 kg Weight (Calculated Kilograms) 62.6 Weight (Calculated Grams) 74070.7 [place] Body Weight 106 LB (48.18 kg) % [place] Body Weight 130 Body Mass Index (BMI) 26.9 Weight Status Overweight GI Symptoms Last / x1 Skin Integrity/Comment: Skin: Dryness, multiple small scabs to lower extremities, self-inflicted [place]: 21 Current %PO Good (75-100%) Estimated Nutritional Goals BEE in Kcals: Using Current wt Calories/Kcals/Kg 25-30 Kcals Calculated 5326-2955 Protein: Using Current wt Protein g/k.0-1.2 Protein Calculated 60-75 Fluid: ml 6146-4103 ml (25-30 ml/kg) Nutritional Problem 1. Problem Problem No nutrition diagnosis at this time. Etiology N/A Signs/Symptoms: N/A Malnutrition Related to Morbid Obesity Malnutrition related to morbid obesity No Intervention/Recommendation Comments Continue Mechanical Soft, MAURA diet as tolerated. Expected Outcomes/Goals Expected Outcomes/Goals 1. PO intake to continue to meet >75% of estimated nutritional needs. 2. Monitor PO intake, wt, nutrition related labs, and skin integrity to trend WNL. 3. F/U as low risk in 7-10 days, 11/21-11/24
[2019-11-15] MEDS: QUEtiapine Fumarate 300 MG, QUEtiapine Fumarate 50 MG, QUEtiapine Fumarate 25 MG PO SCH ×2 (08:39→16:46)
[2019-11-15] MEDS: Multivitamin Tab PO SCH (08:40)
--- NOTE | 2019-11-15 19:32 | Progress Notes ---
DATE: 11/15/2019 SUBJECTIVE: The patient coming in from [place] with psychosis, hallucinating. The patient hearing voices and noises of "the wall cracking," bizarre, internally preoccupied, ongoing safety concerns, concerns he may act out upon his psychotic symptoms. Currently on dosing of Seroquel. PLAN: We will continue to monitor ongoing psychotic symptoms. Fair sleep and appetite. [facility]# [id number]
[2019-11-15] MEDS: Maalox 30 mL Cup PO PRN (22:00)
--- NOTE | 2019-11-15 22:10 | Internal Medicine Prog Note ---
Internal Medicine Subjective - Subjective Service Date: 11/15/19 Patient seen and examined:: without staff (HE FEELS WELL) Patient is:: awake, verbal, ambulating, confused Per staff patient has:: no adverse event Internal Medicine Objective - Physical Exam Vitals and I&O: Vital Signs Temp 98.2 F 11/15/19 20:41 Pulse 110 11/15/19 20:41 Resp 20 11/15/19 20:41 BP 116/78 11/15/19 20:41 Pulse Ox 98 11/15/19 20:41 Intake & Output 11/15/19 11/15/19 11/16/19 06:59 18:59 06:59 Intake Total 120 120 Balance 120 120 Intake: Oral 120 120 Other: # Voids 2 2 # Bowel Movements 0 Active Medications: Current Medications Acetaminophen (Tylenol) 650 mg PO Q4HR PRN PRN Reason: Pain (Mild 1-3) Stop: 01/07/20 20:40 Al Hydrox/Mg Hydrox/Simethicone (Maalox) 30 ml PO Q4HR PRN PRN Reason: GI DISTRESS Stop: 01/07/20 19:58 Last Admin: 11/15/19 22:00 Dose: 30 ml Divalproex Sodium (Depakote Dr) 250 mg PO BID [facility]; Protocol Stop: 01/08/20 16:59 Last Admin: 11/15/19 16:46 Dose: 250 mg Docusate Sodium (Colace) 250 mg PO DAILY [facility] Stop: 01/08/20 08:59 Last Admin: 11/15/19 08:40 Dose: 250 mg Famotidine (Pepcid) 40 mg PO DAILY [facility] Stop: 01/08/20 08:59 Last Admin: 11/15/19 08:39 Dose: 40 mg Levetiracetam (Keppra) 500 mg PO DAILY [facility] Stop: 01/08/20 08:59 Last Admin: 11/15/19 08:39 Dose: 500 mg Lorazepam (Ativan) 0.5 mg PO Q4HR PRN; Protocol PRN Reason: Anxiety Stop: 12/08/19 19:58 Last Admin: 11/11/19 16:13 Dose: 0.5 mg Metoprolol Tartrate (Lopressor) 50 mg PO DAILY [facility] Stop: 01/08/20 08:59 Last Admin: 11/15/19 08:40 Dose: 50 mg Multivitamins/Vitamin C (Theragran) 1 tab PO DAILY [facility] Stop: 01/08/20 08:59 Last Admin: 11/15/19 08:40 Dose: 1 tab Quetiapine Fumarate 300 mg/Quetiapine Fumarate 50 mg/Quetiapine Fumarate 25 mg 375 mg PO BID [facility] Stop: 01/13/20 16:59 Last Admin: 11/15/19 16:46 Dose: 375 mg Zolpidem Tartrate (Ambien) 5 mg PO HS PRN PRN Reason: Insomnia Stop: 01/07/20 19:58 Last Admin: 11/15/19 22:00 Dose: 5 mg General: demented HEENT: NC/AT, PERRLA, EOMI, anicteric sclerae, throat clear Neck: Supple, No JVD, No thyromegaly, +2 carotid pulse wo bruit, No LAD Lungs: CTAB Cardiovascular: RRR, Normal S1, Normal S2, without murmur Abdomen: soft, non-tender, non-distended Extremities: clear Neurological: no change - Procedures Procedures: Procedures Procedure Code Date GROUP PSYCHOTHERAPY 60983 07/16/15 GROUP PSYCHOTHERAPY GZHZZZZ 07/16/15 INDIVID PSYCHOTHERAP NEC 94.39 09/06/13 OTHER GROUP THERAPY 94.44 05/03/14 RECREATIONAL THERAPY 93.81 08/25/12 Internal Medicine Assmt/Plan - Assessment Assessment: 1.HTN. 2.SEIZURE DISORDER 3.HONORIO. 4.PSYCHSIS - Plan Plan: CONTINUE ON CURRENT MEDICATION AND DIET Nutritional Asmnt/Malnutr-PDOC - Dietary Evaluation Malnutrition Findings (Please click <Entered> for more info): Nutritional Asmnt/Malnutrition Start: 11/14/19 12: 39 Text: Status: Complete Freq: Protocol: Document 11/14/19 12:46 ASH (Rec: 11/14/19 12:50 ASH [email or web address]) Nutritional Asmnt/Malnutrition Patient General Information Nutritional Screening Low Risk Diagnosis Psychosis Pertinent Medical Hx/Surgical Hx HTN, GERD, Seizure disorder, Dementia, Psychosis Subjective Information Pt is a 69-year-old male admitted on 11/14 d/t psychosis , hallucinations and voices. Pt is eating an estimated 90% of meals Per Meal/Nutrition Activity Record. Dietary is currently providing an estimated 2500 kcals and 108 gm Pro, per Pt PO intake this is providing an estimated 2250 kcals and 97gm Pro to meet 100+% kcal and 100+% Pro needs . Anthropometrics HT: 5 FT WT: 138 LB (62.73 kg) BMI: 26.98 (Overweight) GI/ Skin Integrity GI: WNL, Soft, Flat, Non- tender BM: 11/12 x1 I/O: 1170/Not Noted Skin: Dryness, multiple small scabs to lower extremities, self-inflicted Mansoor: 21 Diet Order: Mechanical Soft, MAURA Estimated Energy Needs: ( Geriatric, CBW) 1968-1958 kcals (25-30 kcals/ kg) 60-75g Pro (1.0-1.2 g/kg) 7167-8335 ml (25-30 ml/kg) Current Diet Order/ Nutrition Support Mechanical Soft, MAURA Pertinent Medications Maalox (PRN), Colace, Pepcid, MOM (PRN), Theragran Pertinent Labs 11/09: Chol 217, LDL 123, A1c 6. 0% Nutritional Hx/Data Height 1.52 m Height (Calculated Centimeters) 152.4 Current Weight (lbs) 62.596 kg Weight (Calculated Kilograms) 62.6 Weight (Calculated Grams) 72368.7 [place] Body Weight 106 LB (48.18 kg) % [place] Body Weight 130 Body Mass Index (BMI) 26.9 Weight Status Overweight GI Symptoms Last BM /10 x1 Skin Integrity/Comment: Skin: Dryness, multiple small scabs to lower extremities, self-inflicted Mansoor: 21 Current %PO Good (75-100%) Estimated Nutritional Goals BEE in Kcals: Using Current wt Calories/Kcals/Kg 25-30 Kcals Calculated 5817-6730 Protein: Using Current wt Protein g/k.0-1.2 Protein Calculated 60-75 Fluid: ml 4803-6070 ml (25-30 ml/kg) Nutritional Problem 1. Problem Problem No nutrition diagnosis at this time. Etiology N/A Signs/Symptoms: N/A Malnutrition Related to Morbid Obesity Malnutrition related to morbid obesity No Intervention/Recommendation Comments Continue Mechanical Soft, MAURA diet as tolerated. Expected Outcomes/Goals Expected Outcomes/Goals 1. PO intake to continue to meet >75% of estimated nutritional needs. 2. Monitor PO intake, wt, nutrition related labs, and skin integrity to trend WNL. 3. F/U as low risk in 7-10 days, 11/21-11/24
[2019-11-16] MEDS: QUEtiapine Fumarate 300 MG, QUEtiapine Fumarate 50 MG, QUEtiapine Fumarate 25 MG PO SCH ×2 (08:30→16:12)
[2019-11-16] MEDS: Multivitamin Tab PO SCH (08:31)
--- NOTE | 2019-11-16 16:34 | Progress Notes ---
DATE: 11/16/2019 The patient in the hospital with ongoing symptoms, psychotic symptoms, still alluding to hallucinations and voices. Medications were noted. Vitals were reviewed. Ongoing psychosis. Feeling targeted by staff. Fair sleep. Fair appetite. We will continue inpatient monitoring. JOB# [id number]
--- NOTE | 2019-11-16 20:14 | Internal Medicine Prog Note ---
Internal Medicine Subjective - Subjective Service Date: 11/16/19 Patient seen and examined:: without staff (HE IS DOING GOOD) Patient is:: awake, verbal, ambulating, confused Per staff patient has:: no adverse event Internal Medicine Objective - Physical Exam Vitals and I&O: Vital Signs Temp 98.4 F 11/16/19 14:06 Pulse 91 11/16/19 14:06 Resp 20 11/16/19 14:06 BP 137/70 11/16/19 14:06 Pulse Ox 99 11/16/19 14:06 Intake & Output 11/16/19 11/16/19 11/17/19 06:59 18:59 06:59 Intake Total 120 120 Balance 120 120 Intake: Oral 120 120 Other: # Voids 2 2 # Bowel Movements 0 0 Active Medications: Current Medications Acetaminophen (Tylenol) 650 mg PO Q4HR PRN PRN Reason: Pain (Mild 1-3) Stop: 01/07/20 20:40 Al Hydrox/Mg Hydrox/Simethicone (Maalox) 30 ml PO Q4HR PRN PRN Reason: GI DISTRESS Stop: 01/07/20 19:58 Last Admin: 11/15/19 22:00 Dose: 30 ml Divalproex Sodium (Depakote Dr) 250 mg PO BID [facility]; Protocol Stop: 01/08/20 16:59 Last Admin: 11/16/19 16:12 Dose: 250 mg Docusate Sodium (Colace) 250 mg PO DAILY [facility] Stop: 01/08/20 08:59 Last Admin: 11/16/19 08:31 Dose: 250 mg Famotidine (Pepcid) 40 mg PO DAILY [facility] Stop: 01/08/20 08:59 Last Admin: 11/16/19 08:31 Dose: 40 mg Levetiracetam (Keppra) 500 mg PO DAILY [facility] Stop: 01/08/20 08:59 Last Admin: 11/16/19 08:31 Dose: 500 mg Lorazepam (Ativan) 0.5 mg PO Q4HR PRN; Protocol PRN Reason: Anxiety Stop: 12/08/19 19:58 Last Admin: 11/16/19 19:40 Dose: 0.5 mg Metoprolol Tartrate (Lopressor) 50 mg PO DAILY [facility] Stop: 01/08/20 08:59 Last Admin: 11/16/19 08:31 Dose: 50 mg Multivitamins/Vitamin C (Theragran) 1 tab PO DAILY [facility] Stop: 01/08/20 08:59 Last Admin: 11/16/19 08:31 Dose: 1 tab Quetiapine Fumarate 300 mg/Quetiapine Fumarate 50 mg/Quetiapine Fumarate 25 mg 375 mg PO BID [facility] Stop: 01/13/20 16:59 Last Admin: 11/16/19 16:12 Dose: 375 mg Zolpidem Tartrate (Ambien) 5 mg PO HS PRN PRN Reason: Insomnia Stop: 01/07/20 19:58 Last Admin: 11/15/19 22:00 Dose: 5 mg General: demented HEENT: NC/AT, PERRLA, EOMI, anicteric sclerae, throat clear Neck: Supple, No JVD, No thyromegaly, +2 carotid pulse wo bruit, No LAD Lungs: CTAB Cardiovascular: RRR, Normal S1, Normal S2, without murmur Abdomen: soft, non-tender, non-distended Extremities: clear Neurological: no change - Procedures Procedures: Procedures Procedure Code Date GROUP PSYCHOTHERAPY 64408 07/16/15 GROUP PSYCHOTHERAPY GZHZZZZ 07/16/15 INDIVID PSYCHOTHERAP NEC 94.39 09/06/13 OTHER GROUP THERAPY 94.44 05/03/14 RECREATIONAL THERAPY 93.81 08/25/12 Internal Medicine Assmt/Plan - Assessment Assessment: 1.HTN. 2.SEIZURE DISORDER 3.HONORIO. 4.PSYCHSIS - Plan Plan: CONTINUE ON CURRENT MEDICATION AND DIET Nutritional Asmnt/Malnutr-PDOC - Dietary Evaluation Malnutrition Findings (Please click <Entered> for more info): Nutritional Asmnt/Malnutrition Start: 11/14/19 12: 39 Text: Status: Complete Freq: Protocol: Document 11/14/19 12:46 ASH (Rec: 11/14/19 12:50 ASH [id number]) Nutritional Asmnt/Malnutrition Patient General Information Nutritional Screening Low Risk Diagnosis Psychosis Pertinent Medical Hx/Surgical Hx HTN, GERD, Seizure disorder, Dementia, Psychosis Subjective Information Pt is a 69-year-old male admitted on 11/14 d/t psychosis , hallucinations and voices. Pt is eating an estimated 90% of meals Per Meal/Nutrition Activity Record. Dietary is currently providing an estimated 2500 kcals and 108 gm Pro, per Pt PO intake this is providing an estimated 2250 kcals and 97gm Pro to meet 100+% kcal and 100+% Pro needs . Anthropometrics HT: 5 FT WT: 138 LB (62.73 kg) BMI: 26.98 (Overweight) GI/ Skin Integrity GI: WNL, Soft, Flat, Non- tender BM: 11/12 x1 I/O: 1170/Not Noted Skin: Dryness, multiple small scabs to lower extremities, self-inflicted Mansoor: 21 Diet Order: Mechanical Soft, MAURA Estimated Energy Needs: ( Geriatric, CBW) 2330-3086 kcals (25-30 kcals/ kg) 60-75g Pro (1.0-1.2 g/kg) 1540-3019 ml (25-30 ml/kg) Current Diet Order/ Nutrition Support Mechanical Soft, MAURA Pertinent Medications Maalox (PRN), Colace, Pepcid, MOM (PRN), Theragran Pertinent Labs 11/09: Chol 217, LDL 123, A1c 6. 0% Nutritional Hx/Data Height 1.52 m Height (Calculated Centimeters) 152.4 Current Weight (lbs) 62.596 kg Weight (Calculated Kilograms) 62.6 Weight (Calculated Grams) 98386.7 [place] Body Weight 106 LB (48.18 kg) % [place] Body Weight 130 Body Mass Index (BMI) 26.9 Weight Status Overweight GI Symptoms Last /10 x1 Skin Integrity/Comment: Skin: Dryness, multiple small scabs to lower extremities, self-inflicted Mansoor: 21 Current %PO Good (75-100%) Estimated Nutritional Goals BEE in Kcals: Using Current wt Calories/Kcals/Kg 25-30 Kcals Calculated 6863-2783 Protein: Using Current wt Protein g/k.0-1.2 Protein Calculated 60-75 Fluid: ml 4907-7473 ml (25-30 ml/kg) Nutritional Problem 1. Problem Problem No nutrition diagnosis at this time. Etiology N/A Signs/Symptoms: N/A Malnutrition Related to Morbid Obesity Malnutrition related to morbid obesity No Intervention/Recommendation Comments Continue Mechanical Soft, MAURA diet as tolerated. Expected Outcomes/Goals Expected Outcomes/Goals 1. PO intake to continue to meet >75% of estimated nutritional needs. 2. Monitor PO intake, wt, nutrition related labs, and skin integrity to trend WNL. 3. F/U as low risk in 7-10 days, 11/21-11/24
--- NOTE | 2019-11-17 07:48 | Progress Notes ---
DATE: 11/17/2019 SUBJECTIVE: The patient slept about 7-8 hours, not really answering questions appropriately. AO to name, place. Otherwise, preoccupied, confused, mostly withdrawn, keeps to self, still depressed, somewhat withdrawn, does not say much to me this morning. Mostly isolative, currently on high doses of Seroquel, still mumbling to self. JOB# [id number]
[2019-11-17] MEDS: Multivitamin Tab PO SCH (08:42)
[2019-11-17] MEDS: QUEtiapine Fumarate 300 MG, QUEtiapine Fumarate 50 MG, QUEtiapine Fumarate 25 MG PO SCH ×2 (08:42→16:34)
--- NOTE | 2019-11-17 16:48 | General Progress Note ---
Subjective - Review of Systems Service Date: 11/17/19 Subjective: resting comfortably no distress Objective - Physical Exam Vitals and I&O: Vital Signs Temp 98.4 F 11/17/19 15:34 Pulse 107 11/17/19 15:34 Resp 20 11/17/19 15:34 BP 98/66 11/17/19 15:34 Pulse Ox 95 11/17/19 15:34 Intake & Output 11/16/19 11/17/19 11/17/19 18:59 06:59 18:59 Intake Total 120 240 Balance 120 240 Intake: Oral 120 240 Other: # Voids 2 1 # Bowel Movements 0 Active Medications: Current Medications Acetaminophen (Tylenol) 650 mg PO Q4HR PRN PRN Reason: Pain (Mild 1-3) Stop: 01/07/20 20:40 Al Hydrox/Mg Hydrox/Simethicone (Maalox) 30 ml PO Q4HR PRN PRN Reason: GI DISTRESS Stop: 01/07/20 19:58 Last Admin: 11/15/19 22:00 Dose: 30 ml Divalproex Sodium (Depakote Dr) 250 mg PO BID [facility]; Protocol Stop: 01/08/20 16:59 Last Admin: 11/17/19 16:35 Dose: 250 mg Docusate Sodium (Colace) 250 mg PO DAILY [facility] Stop: 01/08/20 08:59 Last Admin: 11/17/19 08:42 Dose: 250 mg Famotidine (Pepcid) 40 mg PO DAILY [facility] Stop: 01/08/20 08:59 Last Admin: 11/17/19 08:41 Dose: 40 mg Levetiracetam (Keppra) 500 mg PO DAILY [facility] Stop: 01/08/20 08:59 Last Admin: 11/17/19 08:42 Dose: 500 mg Lorazepam (Ativan) 0.5 mg PO Q4HR PRN; Protocol PRN Reason: Anxiety Stop: 12/08/19 19:58 Last Admin: 11/16/19 19:40 Dose: 0.5 mg Metoprolol Tartrate (Lopressor) 50 mg PO DAILY [facility] Stop: 01/08/20 08:59 Last Admin: 11/17/19 08:43 Dose: Not Given Multivitamins/Vitamin C (Theragran) 1 tab PO DAILY [facility] Stop: 01/08/20 08:59 Last Admin: 11/17/19 08:42 Dose: 1 tab Quetiapine Fumarate 300 mg/Quetiapine Fumarate 50 mg/Quetiapine Fumarate 25 mg 375 mg PO BID [facility] Stop: 01/13/20 16:59 Last Admin: 11/17/19 16:34 Dose: 375 mg Zolpidem Tartrate (Ambien) 5 mg PO HS PRN PRN Reason: Insomnia Stop: 01/07/20 19:58 Last Admin: 11/15/19 22:00 Dose: 5 mg General: Alert, No acute distress HEENT: Atraumatic, PERRLA Neck: Supple, JVD, Thyromegaly Cardiovascular: Regular rate, Normal S1, Normal S2 Lungs: Clear to auscultation Abdomen: Bowel sounds, Soft - Procedures Procedures: Procedures Procedure Code Date GROUP PSYCHOTHERAPY 47127 07/16/15 GROUP PSYCHOTHERAPY GZHZZZZ 07/16/15 INDIVID PSYCHOTHERAP NEC 94.39 09/06/13 OTHER GROUP THERAPY 94.44 05/03/14 RECREATIONAL THERAPY 93.81 08/25/12 Assessment/Plan - Assessment Assessment: 1.HTN. 2.SEIZURE DISORDER 3.HONORIO. 4.PSYCHSIS - Plan Plan: continue current treatment Nutritional Asmnt/Malnutr-PDOC - Dietary Evaluation Malnutrition Findings (Please click <Entered> for more info): Nutritional Asmnt/Malnutrition Start: 11/14/19 12: 39 Text: Status: Complete Freq: Protocol: Document 11/14/19 12:46 ASH (Rec: 11/14/19 12:50 ASH [id number]) Nutritional Asmnt/Malnutrition Patient General Information Nutritional Screening Low Risk Diagnosis Psychosis Pertinent Medical Hx/Surgical Hx HTN, GERD, Seizure disorder, Dementia, Psychosis Subjective Information Pt is a 69-year-old male admitted on 11/14 d/t psychosis , hallucinations and voices. Pt is eating an estimated 90% of meals Per Meal/Nutrition Activity Record. Dietary is currently providing an estimated 2500 kcals and 108 gm Pro, per Pt PO intake this is providing an estimated 2250 kcals and 97gm Pro to meet 100+% kcal and 100+% Pro needs . Anthropometrics HT: 5 FT WT: 138 LB (62.73 kg) BMI: 26.98 (Overweight) GI/ Skin Integrity GI: WNL, Soft, Flat, Non- tender BM: 2/10 x1 I/O: 1170/Not Noted Skin: Dryness, multiple small scabs to lower extremities, self-inflicted Mansoor: 21 Diet Order: Mechanical Soft, MAURA Estimated Energy Needs: ( Geriatric, CBW) 0294-6080 kcals (25-30 kcals/ kg) 60-75g Pro (1.0-1.2 g/kg) 1566-9395 ml (25-30 ml/kg) Current Diet Order/ Nutrition Support Mechanical Soft, MAURA Pertinent Medications Maalox (PRN), Colace, Pepcid, MOM (PRN), Theragran Pertinent Labs 11/09: Chol 217, LDL 123, A1c 6. 0% Nutritional Hx/Data Height 1.52 m Height (Calculated Centimeters) 152.4 Current Weight (lbs) 62.596 kg Weight (Calculated Kilograms) 62.6 Weight (Calculated Grams) 81438.7 [place] Body Weight 106 LB (48.18 kg) % [place] Body Weight 130 Body Mass Index (BMI) 26.9 Weight Status Overweight GI Symptoms Last /10 x1 Skin Integrity/Comment: Skin: Dryness, multiple small scabs to lower extremities, self-inflicted Mansoor: 21 Current %PO Good (75-100%) Estimated Nutritional Goals BEE in Kcals: Using Current wt Calories/Kcals/Kg 25-30 Kcals Calculated 0058-1408 Protein: Using Current wt Protein g/k.0-1.2 Protein Calculated 60-75 Fluid: ml 5627-7274 ml (25-30 ml/kg) Nutritional Problem 1. Problem Problem No nutrition diagnosis at this time. Etiology N/A Signs/Symptoms: N/A Malnutrition Related to Morbid Obesity Malnutrition related to morbid obesity No Intervention/Recommendation Comments Continue Mechanical Soft, MAURA diet as tolerated. Expected Outcomes/Goals Expected Outcomes/Goals 1. PO intake to continue to meet >75% of estimated nutritional needs. 2. Monitor PO intake, wt, nutrition related labs, and skin integrity to trend WNL. 3. F/U as low risk in 7-10 days, 11/21-11/24
[2019-11-17] MEDS: Maalox 30 mL Cup PO PRN (21:25)
--- NOTE | 2019-11-18 07:24 | Progress Notes ---
DATE: 11/18/2019 SUBJECTIVE: The patient in the hospital, sleeping, but arousable, slept about 8 hours. Poorly oriented to name and place only. Noted to be pacing at times, anxious, eating fairly well, sometimes preoccupied with own thoughts, remains impulsive, unpredictable, ongoing voices, attesting to voices. PLAN: We will continue to monitor. The patient may be approaching his baseline. Continue dosing of Depakote, Seroquel. JOB# [id number]
[2019-11-18] MEDS: Multivitamin Tab PO SCH (09:05)
[2019-11-18] MEDS: QUEtiapine Fumarate 300 MG, QUEtiapine Fumarate 50 MG, QUEtiapine Fumarate 25 MG PO SCH ×2 (09:06→16:45)
--- NOTE | 2019-11-18 10:10 | General Progress Note ---
Subjective - Review of Systems Service Date: 11/18/19 Subjective: resting comfortably no distress Objective - Physical Exam Vitals and I&O: Vital Signs Temp 98.2 F 11/18/19 06:12 Pulse 82 11/18/19 09:41 Resp 19 11/18/19 06:12 BP 92/58 11/18/19 09:41 Pulse Ox 95 11/18/19 06:12 Intake & Output 11/17/19 11/18/19 11/18/19 18:59 06:59 18:59 Intake Total 300 Balance 300 Intake: Oral 300 Other: # Voids 1 # Bowel Movements 0 Active Medications: Current Medications Acetaminophen (Tylenol) 650 mg PO Q4HR PRN PRN Reason: Pain (Mild 1-3) Stop: 01/07/20 20:40 Al Hydrox/Mg Hydrox/Simethicone (Maalox) 30 ml PO Q4HR PRN PRN Reason: GI DISTRESS Stop: 01/07/20 19:58 Last Admin: 11/17/19 21:25 Dose: 30 ml Divalproex Sodium (Depakote Dr) 250 mg PO BID [facility]; Protocol Stop: 01/08/20 16:59 Last Admin: 11/18/19 09:07 Dose: 250 mg Docusate Sodium (Colace) 250 mg PO DAILY [facility] Stop: 01/08/20 08:59 Last Admin: 11/18/19 09:07 Dose: 250 mg Famotidine (Pepcid) 40 mg PO DAILY [facility] Stop: 01/08/20 08:59 Last Admin: 11/18/19 09:08 Dose: 40 mg Levetiracetam (Keppra) 500 mg PO DAILY [facility] Stop: 01/08/20 08:59 Last Admin: 11/18/19 09:06 Dose: 500 mg Lorazepam (Ativan) 0.5 mg PO Q4HR PRN; Protocol PRN Reason: Anxiety Stop: 12/08/19 19:58 Last Admin: 11/17/19 19:45 Dose: 0.5 mg Metoprolol Tartrate (Lopressor) 50 mg PO DAILY [facility] Stop: 01/08/20 08:59 Last Admin: 11/18/19 09:41 Dose: Not Given Multivitamins/Vitamin C (Theragran) 1 tab PO DAILY [facility] Stop: 01/08/20 08:59 Last Admin: 11/18/19 09:05 Dose: 1 tab Quetiapine Fumarate 300 mg/Quetiapine Fumarate 50 mg/Quetiapine Fumarate 25 mg 375 mg PO BID [facility] Stop: 01/13/20 16:59 Last Admin: 11/18/19 09:06 Dose: 375 mg Zolpidem Tartrate (Ambien) 5 mg PO HS PRN PRN Reason: Insomnia Stop: 01/07/20 19:58 Last Admin: 11/17/19 21:25 Dose: 5 mg General: Alert, No acute distress HEENT: Atraumatic, PERRLA Neck: Supple, JVD, Thyromegaly Cardiovascular: Regular rate, Normal S1, Normal S2 Lungs: Clear to auscultation Abdomen: Bowel sounds, Soft - Procedures Procedures: Procedures Procedure Code Date GROUP PSYCHOTHERAPY 75746 07/16/15 GROUP PSYCHOTHERAPY GZHZZZZ 07/16/15 INDIVID PSYCHOTHERAP NEC 94.39 09/06/13 OTHER GROUP THERAPY 94.44 05/03/14 RECREATIONAL THERAPY 93.81 08/25/12 Assessment/Plan - Assessment Assessment: 1.HTN. 2.SEIZURE DISORDER 3.HONORIO. 4.PSYCHSIS - Plan Plan: continue current treatment Nutritional Asmnt/Malnutr-PDOC - Dietary Evaluation Malnutrition Findings (Please click <Entered> for more info): Nutritional Asmnt/Malnutrition Start: 11/14/19 12: 39 Text: Status: Complete Freq: Protocol: Document 11/14/19 12:46 ASH (Rec: 11/14/19 12:50 ASH [id number]) Nutritional Asmnt/Malnutrition Patient General Information Nutritional Screening Low Risk Diagnosis Psychosis Pertinent Medical Hx/Surgical Hx HTN, GERD, Seizure disorder, Dementia, Psychosis Subjective Information Pt is a 69-year-old male admitted on 11/14 d/t psychosis , hallucinations and voices. Pt is eating an estimated 90% of meals Per Meal/Nutrition Activity Record. Dietary is currently providing an estimated 2500 kcals and 108 gm Pro, per Pt PO intake this is providing an estimated 2250 kcals and 97gm Pro to meet 100+% kcal and 100+% Pro needs . Anthropometrics HT: 5 FT WT: 138 LB (62.73 kg) BMI: 26.98 (Overweight) GI/ Skin Integrity GI: WNL, Soft, Flat, Non- tender BM: 2/10 x1 I/O: 1170/Not Noted Skin: Dryness, multiple small scabs to lower extremities, self-inflicted Mansoor: 21 Diet Order: Mechanical Soft, MAURA Estimated Energy Needs: ( Geriatric, CBW) 3951-3579 kcals (25-30 kcals/ kg) 60-75g Pro (1.0-1.2 g/kg) 9764-3401 ml (25-30 ml/kg) Current Diet Order/ Nutrition Support Mechanical Soft, MAURA Pertinent Medications Maalox (PRN), Colace, Pepcid, MOM (PRN), Theragran Pertinent Labs 11/09: Chol 217, LDL 123, A1c 6. 0% Nutritional Hx/Data Height 1.52 m Height (Calculated Centimeters) 152.4 Current Weight (lbs) 62.596 kg Weight (Calculated Kilograms) 62.6 Weight (Calculated Grams) 58531.7 [place] Body Weight 106 LB (48.18 kg) % [place] Body Weight 130 Body Mass Index (BMI) 26.9 Weight Status Overweight GI Symptoms Last x1 Skin Integrity/Comment: Skin: Dryness, multiple small scabs to lower extremities, self-inflicted Mansoor: 21 Current %PO Good (75-100%) Estimated Nutritional Goals BEE in Kcals: Using Current wt Calories/Kcals/Kg 25-30 Kcals Calculated 9585-5107 Protein: Using Current wt Protein g/k.0-1.2 Protein Calculated 60-75 Fluid: ml 1683-3168 ml (25-30 ml/kg) Nutritional Problem 1. Problem Problem No nutrition diagnosis at this time. Etiology N/A Signs/Symptoms: N/A Malnutrition Related to Morbid Obesity Malnutrition related to morbid obesity No Intervention/Recommendation Comments Continue Mechanical Soft, MAURA diet as tolerated. Expected Outcomes/Goals Expected Outcomes/Goals 1. PO intake to continue to meet >75% of estimated nutritional needs. 2. Monitor PO intake, wt, nutrition related labs, and skin integrity to trend WNL. 3. F/U as low risk in 7-10 days, 11/21-11/24
[2019-11-18] MEDS: Maalox 30 mL Cup PO PRN (21:37)
[2019-11-19] MEDS: Multivitamin Tab PO SCH (09:05)
[2019-11-19] MEDS: QUEtiapine Fumarate 300 MG, QUEtiapine Fumarate 50 MG, QUEtiapine Fumarate 25 MG PO SCH (09:05)
--- NOTE | 2019-11-19 14:05 | Progress Notes ---
DATE: 11/19/2019 Case was discussed with staff of the patient, reviewed records. The patient still reports hearing voices, continues to be restless at times, sleeping better, eating better, and internally preoccupied, impulsive, unpredictable. He is compliant with the medication with no side effects except for some restlessness, no sedation, and no nausea. He is on Depakote 250 mg twice a day and Seroquel dose was increased to 75 mg twice a day. I will be increasing the dose to 400 mg twice a day to help improve his psychotic symptoms. We will continue outpatient group therapy, milieu therapy, adjust medication as needed. Also, I will be checking his Depakote level. JOB# [id number]
--- NOTE | 2019-11-19 14:26 | Internal Medicine Prog Note ---
Internal Medicine Subjective - Subjective Service Date: 11/19/19 Patient seen and examined:: without staff (HE IS DOING WELL) Patient is:: awake, verbal, ambulating, confused Per staff patient has:: no adverse event Internal Medicine Objective - Physical Exam Vitals and I&O: Vital Signs Temp 97.9 F 11/19/19 13:40 Pulse 103 11/19/19 13:40 Resp 20 11/19/19 13:40 BP 100/70 11/19/19 13:40 Pulse Ox 95 11/19/19 13:40 Intake & Output 11/18/19 11/19/19 11/19/19 18:59 06:59 18:59 Intake Total 1000 240 Balance 1000 240 Intake: Oral 1000 240 Other: # Voids 4 2 # Bowel Movements 1 Active Medications: Current Medications Acetaminophen (Tylenol) 650 mg PO Q4HR PRN PRN Reason: Pain (Mild 1-3) Stop: 01/07/20 20:40 Al Hydrox/Mg Hydrox/Simethicone (Maalox) 30 ml PO Q4HR PRN PRN Reason: GI DISTRESS Stop: 01/07/20 19:58 Last Admin: 11/18/19 21:37 Dose: 30 ml Divalproex Sodium (Depakote Dr) 250 mg PO BID [facility]; Protocol Stop: 01/08/20 16:59 Last Admin: 11/19/19 09:04 Dose: 250 mg Docusate Sodium (Colace) 250 mg PO DAILY [facility] Stop: 01/08/20 08:59 Last Admin: 11/19/19 09:04 Dose: 250 mg Famotidine (Pepcid) 40 mg PO DAILY [facility] Stop: 01/08/20 08:59 Last Admin: 11/19/19 09:04 Dose: 40 mg Levetiracetam (Keppra) 500 mg PO DAILY [facility] Stop: 01/08/20 08:59 Last Admin: 11/19/19 09:04 Dose: 500 mg Lorazepam (Ativan) 0.5 mg PO Q4HR PRN; Protocol PRN Reason: Anxiety Stop: 12/08/19 19:58 Last Admin: 11/18/19 21:00 Dose: 0.5 mg Metoprolol Tartrate (Lopressor) 50 mg PO DAILY [facility] Stop: 01/08/20 08:59 Last Admin: 11/19/19 09:04 Dose: 50 mg Multivitamins/Vitamin C (Theragran) 1 tab PO DAILY [facility] Stop: 01/08/20 08:59 Last Admin: 11/19/19 09:05 Dose: 1 tab Quetiapine Fumarate (Seroquel) 400 mg PO BID [facility] Stop: 01/18/20 16:59 Zolpidem Tartrate (Ambien) 5 mg PO HS PRN PRN Reason: Insomnia Stop: 01/07/20 19:58 Last Admin: 11/18/19 20:26 Dose: 5 mg General: demented HEENT: NC/AT, PERRLA, EOMI, anicteric sclerae, throat clear Neck: Supple, No JVD, No thyromegaly, +2 carotid pulse wo bruit, No LAD Lungs: CTAB Cardiovascular: RRR, Normal S1, Normal S2, without murmur Abdomen: soft, non-tender, non-distended Extremities: clear Neurological: no change - Procedures Procedures: Procedures Procedure Code Date GROUP PSYCHOTHERAPY 65779 07/16/15 GROUP PSYCHOTHERAPY GZHZZZZ 07/16/15 INDIVID PSYCHOTHERAP NEC 94.39 09/06/13 OTHER GROUP THERAPY 94.44 05/03/14 RECREATIONAL THERAPY 93.81 08/25/12 Internal Medicine Assmt/Plan - Assessment Assessment: 1.HTN. 2.SEIZURE DISORDER 3.HONORIO. 4.PSYCHSIS - Plan Plan: CONTINUE ON CURRENT MEDICATION AND DIET Nutritional Asmnt/Malnutr-PDOC - Dietary Evaluation Malnutrition Findings (Please click <Entered> for more info): Nutritional Asmnt/Malnutrition Start: 11/14/19 12: 39 Text: Status: Complete Freq: Protocol: Document 11/14/19 12:46 ASH (Rec: 11/14/19 12:50 ASH [email or web address]) Nutritional Asmnt/Malnutrition Patient General Information Nutritional Screening Low Risk Diagnosis Psychosis Pertinent Medical Hx/Surgical Hx HTN, GERD, Seizure disorder, Dementia, Psychosis Subjective Information Pt is a 69-year-old male admitted on 11/14 d/t psychosis , hallucinations and voices. Pt is eating an estimated 90% of meals Per Meal/Nutrition Activity Record. Dietary is currently providing an estimated 2500 kcals and 108 gm Pro, per Pt PO intake this is providing an estimated 2250 kcals and 97gm Pro to meet 100+% kcal and 100+% Pro needs . Anthropometrics HT: 5 FT WT: 138 LB (62.73 kg) BMI: 26.98 (Overweight) GI/ Skin Integrity GI: WNL, Soft, Flat, Non- tender BM: 11/12 x1 I/O: 1170/Not Noted Skin: Dryness, multiple small scabs to lower extremities, self-inflicted Mansoor: 21 Diet Order: Mechanical Soft, MAURA Estimated Energy Needs: ( Geriatric, CBW) 9921-7293 kcals (25-30 kcals/ kg) 60-75g Pro (1.0-1.2 g/kg) 0924-2316 ml (25-30 ml/kg) Current Diet Order/ Nutrition Support Mechanical Soft, MAURA Pertinent Medications Maalox (PRN), Colace, Pepcid, MOM (PRN), Theragran Pertinent Labs 11/09: Chol 217, LDL 123, A1c 6. 0% Nutritional Hx/Data Height 1.52 m Height (Calculated Centimeters) 152.4 Current Weight (lbs) 62.596 kg Weight (Calculated Kilograms) 62.6 Weight (Calculated Grams) 56284.7 [place] Body Weight 106 LB (48.18 kg) % [place] Body Weight 130 Body Mass Index (BMI) 26.9 Weight Status Overweight GI Symptoms Last / x1 Skin Integrity/Comment: Skin: Dryness, multiple small scabs to lower extremities, self-inflicted Mansoor: 21 Current %PO Good (75-100%) Estimated Nutritional Goals BEE in Kcals: Using Current wt Calories/Kcals/Kg 25-30 Kcals Calculated 0530-2666 Protein: Using Current wt Protein g/k.0-1.2 Protein Calculated 60-75 Fluid: ml 5207-0154 ml (25-30 ml/kg) Nutritional Problem 1. Problem Problem No nutrition diagnosis at this time. Etiology N/A Signs/Symptoms: N/A Malnutrition Related to Morbid Obesity Malnutrition related to morbid obesity No Intervention/Recommendation Comments Continue Mechanical Soft, MAURA diet as tolerated. Expected Outcomes/Goals Expected Outcomes/Goals 1. PO intake to continue to meet >75% of estimated nutritional needs. 2. Monitor PO intake, wt, nutrition related labs, and skin integrity to trend WNL. 3. F/U as low risk in 7-10 days, 11/21-11/24
[2019-11-20] MEDS: Multivitamin Tab PO SCH (08:10)
--- NOTE | 2019-11-20 19:25 | Internal Medicine Prog Note ---
Internal Medicine Subjective - Subjective Service Date: 11/20/19 Patient seen and examined:: without staff (HE IS DOING WELL) Patient is:: awake, verbal, ambulating, confused Per staff patient has:: no adverse event Internal Medicine Objective - Physical Exam Vitals and I&O: Vital Signs Temp 97.6 F 11/20/19 14:00 Pulse 117 11/20/19 14:00 Resp 20 11/20/19 14:00 BP 102/64 11/20/19 14:00 Pulse Ox 98 11/20/19 14:00 Intake & Output 11/20/19 11/20/19 11/21/19 06:59 18:59 06:59 Intake Total 240 800 Balance 240 800 Intake: Oral 240 800 Other: # Voids 2 4 # Bowel Movements 0 Active Medications: Current Medications Acetaminophen (Tylenol) 650 mg PO Q4HR PRN PRN Reason: Pain (Mild 1-3) Stop: 01/07/20 20:40 Al Hydrox/Mg Hydrox/Simethicone (Maalox) 30 ml PO Q4HR PRN PRN Reason: GI DISTRESS Stop: 01/07/20 19:58 Last Admin: 11/18/19 21:37 Dose: 30 ml Divalproex Sodium (Depakote Dr) 250 mg PO Q8HR [facility]; Protocol Stop: 01/19/20 12:59 Last Admin: 11/20/19 13:22 Dose: 250 mg Docusate Sodium (Colace) 250 mg PO DAILY [facility] Stop: 01/08/20 08:59 Last Admin: 11/20/19 08:10 Dose: 250 mg Famotidine (Pepcid) 40 mg PO DAILY [facility] Stop: 01/08/20 08:59 Last Admin: 11/20/19 08:12 Dose: 40 mg Levetiracetam (Keppra) 500 mg PO DAILY [facility] Stop: 01/08/20 08:59 Last Admin: 11/20/19 08:10 Dose: 500 mg Lorazepam (Ativan) 0.5 mg PO Q4HR PRN; Protocol PRN Reason: Anxiety Stop: 12/08/19 19:58 Last Admin: 11/20/19 17:02 Dose: 0.5 mg Metoprolol Tartrate (Lopressor) 50 mg PO DAILY [facility] Stop: 01/08/20 08:59 Last Admin: 11/20/19 08:11 Dose: Not Given Multivitamins/Vitamin C (Theragran) 1 tab PO DAILY [facility] Stop: 01/08/20 08:59 Last Admin: 11/20/19 08:10 Dose: 1 tab Quetiapine Fumarate (Seroquel) 400 mg PO BID [facility] Stop: 01/18/20 16:59 Last Admin: 11/20/19 17:02 Dose: 400 mg Zolpidem Tartrate (Ambien) 5 mg PO HS PRN PRN Reason: Insomnia Stop: 01/07/20 19:58 Last Admin: 11/19/19 20:26 Dose: 5 mg General: demented HEENT: NC/AT, PERRLA, EOMI, anicteric sclerae, throat clear Neck: Supple, No JVD, No thyromegaly, +2 carotid pulse wo bruit, No LAD Lungs: CTAB Cardiovascular: RRR, Normal S1, Normal S2, without murmur Abdomen: soft, non-tender, non-distended Extremities: clear Neurological: no change - Procedures Procedures: Procedures Procedure Code Date GROUP PSYCHOTHERAPY 13842 07/16/15 GROUP PSYCHOTHERAPY GZHZZZZ 07/16/15 INDIVID PSYCHOTHERAP NEC 94.39 09/06/13 OTHER GROUP THERAPY 94.44 05/03/14 RECREATIONAL THERAPY 93.81 08/25/12 Internal Medicine Assmt/Plan - Assessment Assessment: 1.HTN. 2.SEIZURE DISORDER 3.HONORIO. 4.PSYCHSIS - Plan Plan: CONTINUE ON CURRENT MEDICATION AND DIET Nutritional Asmnt/Malnutr-PDOC - Dietary Evaluation Malnutrition Findings (Please click <Entered> for more info): Nutritional Asmnt/Malnutrition Start: 11/14/19 12: 39 Text: Status: Complete Freq: Protocol: Document 11/14/19 12:46 ASH (Rec: 11/14/19 12:50 ASH [email or web address]) Nutritional Asmnt/Malnutrition Patient General Information Nutritional Screening Low Risk Diagnosis Psychosis Pertinent Medical Hx/Surgical Hx HTN, GERD, Seizure disorder, Dementia, Psychosis Subjective Information Pt is a 69-year-old male admitted on 11/14 d/t psychosis , hallucinations and voices. Pt is eating an estimated 90% of meals Per Meal/Nutrition Activity Record. Dietary is currently providing an estimated 2500 kcals and 108 gm Pro, per Pt PO intake this is providing an estimated 2250 kcals and 97gm Pro to meet 100+% kcal and 100+% Pro needs . Anthropometrics HT: 5 FT WT: 138 LB (62.73 kg) BMI: 26.98 (Overweight) GI/ Skin Integrity GI: WNL, Soft, Flat, Non- tender BM: 11/12 x1 I/O: 1170/Not Noted Skin: Dryness, multiple small scabs to lower extremities, self-inflicted Mansoor: 21 Diet Order: Mechanical Soft, MAURA Estimated Energy Needs: ( Geriatric, CBW) 6671-0296 kcals (25-30 kcals/ kg) 60-75g Pro (1.0-1.2 g/kg) 4915-9835 ml (25-30 ml/kg) Current Diet Order/ Nutrition Support Mechanical Soft, MAURA Pertinent Medications Maalox (PRN), Colace, Pepcid, MOM (PRN), Theragran Pertinent Labs 11/09: Chol 217, LDL 123, A1c 6. 0% Nutritional Hx/Data Height 1.52 m Height (Calculated Centimeters) 152.4 Current Weight (lbs) 62.596 kg Weight (Calculated Kilograms) 62.6 Weight (Calculated Grams) 11441.7 [place] Body Weight 106 LB (48.18 kg) % [place] Body Weight 130 Body Mass Index (BMI) 26.9 Weight Status Overweight GI Symptoms Last /10 x1 Skin Integrity/Comment: Skin: Dryness, multiple small scabs to lower extremities, self-inflicted Mansoor: 21 Current %PO Good (75-100%) Estimated Nutritional Goals BEE in Kcals: Using Current wt Calories/Kcals/Kg 25-30 Kcals Calculated 6074-1010 Protein: Using Current wt Protein g/k.0-1.2 Protein Calculated 60-75 Fluid: ml 7521-6924 ml (25-30 ml/kg) Nutritional Problem 1. Problem Problem No nutrition diagnosis at this time. Etiology N/A Signs/Symptoms: N/A Malnutrition Related to Morbid Obesity Malnutrition related to morbid obesity No Intervention/Recommendation Comments Continue Mechanical Soft, MAURA diet as tolerated. Expected Outcomes/Goals Expected Outcomes/Goals 1. PO intake to continue to meet >75% of estimated nutritional needs. 2. Monitor PO intake, wt, nutrition related labs, and skin integrity to trend WNL. 3. F/U as low risk in 7-10 days, 11/21-11/24
[2019-11-20] MEDS: Maalox 30 mL Cup PO PRN (20:18)
--- NOTE | 2019-11-20 22:32 | Progress Notes ---
DATE: Case was discussed with staff of the patient, reviewed records. The patient continues to have poor insight. He believes that somebody is pushing him. He continues to be unpredictable, impulsive, and psychotic. No side effects of the medication, no sedation, no nausea, no extrapyramidal symptoms. I increased his Risperdal dose yesterday to 400 mg twice a day. He is on Depakote 250 mg twice a day. I will be increasing the dose to 250 mg 3 times a day to improve his impulsivity, irritability and no side effects with the medication, no sedation, no nausea, no extrapyramidal symptoms. We will continue outpatient group therapy, milieu therapy and adjust the medication as needed. JOB# [id number]
[2019-11-21] MEDS: Multivitamin Tab PO SCH (08:20)
--- NOTE | 2019-11-21 21:21 | Internal Medicine Prog Note ---
Internal Medicine Subjective - Subjective Service Date: 11/21/19 Patient seen and examined:: without staff (HE IS DOING BETTER,STILL CONFUSED) Patient is:: awake, verbal, ambulating, confused Per staff patient has:: no adverse event Internal Medicine Objective - Physical Exam Vitals and I&O: Vital Signs Temp 98.0 F 11/21/19 20:25 Pulse 122 11/21/19 20:25 Resp 20 11/21/19 20:25 BP 113/77 11/21/19 20:25 Pulse Ox 98 11/21/19 20:25 Intake & Output 11/21/19 11/21/19 11/22/19 06:59 18:59 06:59 Intake Total 120 Balance 120 Intake: Oral 120 Other: # Voids 3 2 # Bowel Movements 0 0 Active Medications: Current Medications Acetaminophen (Tylenol) 650 mg PO Q4HR PRN PRN Reason: Pain (Mild 1-3) Stop: 01/07/20 20:40 Al Hydrox/Mg Hydrox/Simethicone (Maalox) 30 ml PO Q4HR PRN PRN Reason: GI DISTRESS Stop: 01/07/20 19:58 Last Admin: 11/20/19 20:18 Dose: 30 ml Divalproex Sodium (Depakote Dr) 250 mg PO Q8HR [facility]; Protocol Stop: 01/19/20 12:59 Last Admin: 11/21/19 20:47 Dose: 250 mg Docusate Sodium (Colace) 250 mg PO DAILY [facility] Stop: 01/08/20 08:59 Last Admin: 11/21/19 08:18 Dose: 250 mg Famotidine (Pepcid) 40 mg PO DAILY [facility] Stop: 01/08/20 08:59 Last Admin: 11/21/19 08:18 Dose: 40 mg Levetiracetam (Keppra) 500 mg PO DAILY [facility] Stop: 01/08/20 08:59 Last Admin: 11/21/19 08:19 Dose: 500 mg Lorazepam (Ativan) 0.5 mg PO Q4HR PRN; Protocol PRN Reason: Anxiety Stop: 12/08/19 19:58 Last Admin: 11/20/19 17:02 Dose: 0.5 mg Metoprolol Tartrate (Lopressor) 50 mg PO DAILY [facility] Stop: 01/08/20 08:59 Last Admin: 11/21/19 08:19 Dose: 50 mg Multivitamins/Vitamin C (Theragran) 1 tab PO DAILY [facility] Stop: 01/08/20 08:59 Last Admin: 11/21/19 08:20 Dose: 1 tab Quetiapine Fumarate (Seroquel) 400 mg PO BID [facility] Stop: 01/18/20 16:59 Last Admin: 11/21/19 17:13 Dose: 400 mg Zolpidem Tartrate (Ambien) 5 mg PO HS PRN PRN Reason: Insomnia Stop: 01/07/20 19:58 Last Admin: 11/21/19 20:47 Dose: 5 mg General: demented HEENT: NC/AT, PERRLA, EOMI, anicteric sclerae, throat clear Neck: Supple, No JVD, No thyromegaly, +2 carotid pulse wo bruit, No LAD Lungs: CTAB Cardiovascular: RRR, Normal S1, Normal S2, without murmur Abdomen: soft, non-tender, non-distended Extremities: clear Neurological: no change - Procedures Procedures: Procedures Procedure Code Date GROUP PSYCHOTHERAPY 34345 07/16/15 GROUP PSYCHOTHERAPY GZHZZZZ 07/16/15 INDIVID PSYCHOTHERAP NEC 94.39 09/06/13 OTHER GROUP THERAPY 94.44 05/03/14 RECREATIONAL THERAPY 93.81 08/25/12 Internal Medicine Assmt/Plan - Assessment Assessment: 1.HTN. 2.SEIZURE DISORDER 3.HONORIO. 4.PSYCHSIS - Plan Plan: CONTINUE ON CURRENT MEDICATION AND DIET Nutritional Asmnt/Malnutr-PDOC - Dietary Evaluation Malnutrition Findings (Please click <Entered> for more info): Nutritional Asmnt/Malnutrition Start: 11/14/19 12: 39 Text: Status: Complete Freq: Protocol: Document 11/14/19 12:46 ASH (Rec: 11/14/19 12:50 ASH [id number]) Nutritional Asmnt/Malnutrition Patient General Information Nutritional Screening Low Risk Diagnosis Psychosis Pertinent Medical Hx/Surgical Hx HTN, GERD, Seizure disorder, Dementia, Psychosis Subjective Information Pt is a 69-year-old male admitted on 11/14 d/t psychosis , hallucinations and voices. Pt is eating an estimated 90% of meals Per Meal/Nutrition Activity Record. Dietary is currently providing an estimated 2500 kcals and 108 gm Pro, per Pt PO intake this is providing an estimated 2250 kcals and 97gm Pro to meet 100+% kcal and 100+% Pro needs . Anthropometrics HT: 5 FT WT: 138 LB (62.73 kg) BMI: 26.98 (Overweight) GI/ Skin Integrity GI: WNL, Soft, Flat, Non- tender BM: 11/12 x1 I/O: 1170/Not Noted Skin: Dryness, multiple small scabs to lower extremities, self-inflicted Mansoor: 21 Diet Order: Mechanical Soft, MAURA Estimated Energy Needs: ( Geriatric, CBW) 0248-7734 kcals (25-30 kcals/ kg) 60-75g Pro (1.0-1.2 g/kg) 1367-0015 ml (25-30 ml/kg) Current Diet Order/ Nutrition Support Mechanical Soft, MAURA Pertinent Medications Maalox (PRN), Colace, Pepcid, MOM (PRN), Theragran Pertinent Labs 11/09: Chol 217, LDL 123, A1c 6. 0% Nutritional Hx/Data Height 1.52 m Height (Calculated Centimeters) 152.4 Current Weight (lbs) 62.596 kg Weight (Calculated Kilograms) 62.6 Weight (Calculated Grams) 15690.7 [place] Body Weight 106 LB (48.18 kg) % [place] Body Weight 130 Body Mass Index (BMI) 26.9 Weight Status Overweight GI Symptoms Last / x1 Skin Integrity/Comment: Skin: Dryness, multiple small scabs to lower extremities, self-inflicted Mansoor: 21 Current %PO Good (75-100%) Estimated Nutritional Goals BEE in Kcals: Using Current wt Calories/Kcals/Kg 25-30 Kcals Calculated 4531-4104 Protein: Using Current wt Protein g/k.0-1.2 Protein Calculated 60-75 Fluid: ml 9234-5549 ml (25-30 ml/kg) Nutritional Problem 1. Problem Problem No nutrition diagnosis at this time. Etiology N/A Signs/Symptoms: N/A Malnutrition Related to Morbid Obesity Malnutrition related to morbid obesity No Intervention/Recommendation Comments Continue Mechanical Soft, MAURA diet as tolerated. Expected Outcomes/Goals Expected Outcomes/Goals 1. PO intake to continue to meet >75% of estimated nutritional needs. 2. Monitor PO intake, wt, nutrition related labs, and skin integrity to trend WNL. 3. F/U as low risk in 7-10 days, 11/21-11/24
[2019-11-21] MEDS: Maalox 30 mL Cup PO PRN (22:02)
--- NOTE | 2019-11-21 22:24 | Progress Notes ---
DATE: 11/21/2019 Case was discussed with staff of the patient, reviewed records. The patient continues to hear sounds ,seeing objects. Continues to be psychotic, hyperverbal, unpredictable, impulsive, needing redirection. I did increase his Depakote yesterday as well as Seroquel was increased to 400 mg twice a day. No side effects with the medication, no sedation, no nausea, no extrapyramidal symptoms. Continues to look disheveled, disorganized, internally preoccupied. We will continue outpatient group therapy, milieu therapy, adjust medication as needed. JOB# [id number] MTDD
[2019-11-22] MEDS: Multivitamin Tab PO SCH (08:40)
--- NOTE | 2019-11-22 13:24 | Progress Notes ---
DATE: 11/22/2019 Case was discussed with staff of the patient, reviewed records. The patient continues to be hyperverbal. Continues to have poor insight, continues to be unpredictable, impulsive. I increased his Depakote dose 2 days ago. No side effects with the medication, no sedation, no nausea, no extrapyramidal symptoms. I am not sure if this is his basic level of functioning. We are working on also discharge plan. He is not acting anyway dangerous and maybe in his basic level of functioning. We will continue outpatient group therapy, milieu therapy, adjust medication as needed. JOB# [id number]
--- NOTE | 2019-11-22 20:01 | Internal Medicine Prog Note ---
Internal Medicine Subjective - Subjective Service Date: 11/22/19 Patient seen and examined:: without staff (he is doing well) Patient is:: awake, verbal, ambulating, confused Per staff patient has:: no adverse event Internal Medicine Objective - Physical Exam Vitals and I&O: Vital Signs Temp 98.2 F 11/22/19 14:53 Pulse 100 11/22/19 14:53 Resp 18 11/22/19 14:53 BP 109/81 11/22/19 14:53 Pulse Ox 98 11/22/19 14:53 Intake & Output 11/22/19 11/22/19 11/23/19 06:59 18:59 06:59 Intake Total 240 Balance 240 Intake: Oral 240 Other: # Voids 2 # Bowel Movements 0 Active Medications: Current Medications Acetaminophen (Tylenol) 650 mg PO Q4HR PRN PRN Reason: Pain (Mild 1-3) Stop: 01/07/20 20:40 Al Hydrox/Mg Hydrox/Simethicone (Maalox) 30 ml PO Q4HR PRN PRN Reason: GI DISTRESS Stop: 01/07/20 19:58 Last Admin: 11/21/19 22:02 Dose: 30 ml Divalproex Sodium (Depakote Dr) 250 mg PO Q8HR [facility]; Protocol Stop: 01/19/20 12:59 Last Admin: 11/22/19 13:58 Dose: 250 mg Docusate Sodium (Colace) 250 mg PO DAILY [facility] Stop: 01/08/20 08:59 Last Admin: 11/22/19 08:40 Dose: 250 mg Famotidine (Pepcid) 40 mg PO DAILY [facility] Stop: 01/08/20 08:59 Last Admin: 11/22/19 08:39 Dose: 40 mg Levetiracetam (Keppra) 500 mg PO DAILY [facility] Stop: 01/08/20 08:59 Last Admin: 11/22/19 08:40 Dose: 500 mg Lorazepam (Ativan) 0.5 mg PO Q4HR PRN; Protocol PRN Reason: Anxiety Stop: 12/08/19 19:58 Last Admin: 11/20/19 17:02 Dose: 0.5 mg Metoprolol Tartrate (Lopressor) 50 mg PO DAILY [facility] Stop: 01/08/20 08:59 Last Admin: 11/22/19 08:40 Dose: 50 mg Multivitamins/Vitamin C (Theragran) 1 tab PO DAILY [facility] Stop: 01/08/20 08:59 Last Admin: 11/22/19 08:40 Dose: 1 tab Quetiapine Fumarate (Seroquel) 400 mg PO BID [facility] Stop: 01/18/20 16:59 Last Admin: 11/22/19 18:04 Dose: 400 mg Zolpidem Tartrate (Ambien) 5 mg PO HS PRN PRN Reason: Insomnia Stop: 01/07/20 19:58 Last Admin: 11/21/19 20:47 Dose: 5 mg General: demented HEENT: NC/AT, PERRLA, EOMI, anicteric sclerae, throat clear Neck: Supple, No JVD, No thyromegaly, +2 carotid pulse wo bruit, No LAD Lungs: CTAB Cardiovascular: RRR, Normal S1, Normal S2, without murmur Abdomen: soft, non-tender, non-distended Extremities: clear Neurological: no change - Procedures Procedures: Procedures Procedure Code Date GROUP PSYCHOTHERAPY 96407 07/16/15 GROUP PSYCHOTHERAPY GZHZZZZ 07/16/15 INDIVID PSYCHOTHERAP NEC 94.39 09/06/13 OTHER GROUP THERAPY 94.44 05/03/14 RECREATIONAL THERAPY 93.81 08/25/12 Internal Medicine Assmt/Plan - Assessment Assessment: 1.HTN. 2.SEIZURE DISORDER 3.HONORIO. 4.PSYCHSIS - Plan Plan: CONTINUE ON CURRENT MEDICATION AND DIET Nutritional Asmnt/Malnutr-PDOC - Dietary Evaluation Malnutrition Findings (Please click <Entered> for more info): Nutritional Asmnt/Malnutrition Start: 11/14/19 12: 39 Text: Status: Complete Freq: Protocol: Document 11/14/19 12:46 ASH (Rec: 11/14/19 12:50 ASH [id number]) Nutritional Asmnt/Malnutrition Patient General Information Nutritional Screening Low Risk Diagnosis Psychosis Pertinent Medical Hx/Surgical Hx HTN, GERD, Seizure disorder, Dementia, Psychosis Subjective Information Pt is a 69-year-old male admitted on 11/14 d/t psychosis , hallucinations and voices. Pt is eating an estimated 90% of meals Per Meal/Nutrition Activity Record. Dietary is currently providing an estimated 2500 kcals and 108 gm Pro, per Pt PO intake this is providing an estimated 2250 kcals and 97gm Pro to meet 100+% kcal and 100+% Pro needs . Anthropometrics HT: 5 FT WT: 138 LB (62.73 kg) BMI: 26.98 (Overweight) GI/ Skin Integrity GI: WNL, Soft, Flat, Non- tender BM: 11/12 x1 I/O: 1170/Not Noted Skin: Dryness, multiple small scabs to lower extremities, self-inflicted Mansoor: 21 Diet Order: Mechanical Soft, MAURA Estimated Energy Needs: ( Geriatric, CBW) 6912-7842 kcals (25-30 kcals/ kg) 60-75g Pro (1.0-1.2 g/kg) 7960-7361 ml (25-30 ml/kg) Current Diet Order/ Nutrition Support Mechanical Soft, MAURA Pertinent Medications Maalox (PRN), Colace, Pepcid, MOM (PRN), Theragran Pertinent Labs 11/09: Chol 217, LDL 123, A1c 6. 0% Nutritional Hx/Data Height 1.52 m Height (Calculated Centimeters) 152.4 Current Weight (lbs) 62.596 kg Weight (Calculated Kilograms) 62.6 Weight (Calculated Grams) 52965.7 [place] Body Weight 106 LB (48.18 kg) % [place] Body Weight 130 Body Mass Index (BMI) 26.9 Weight Status Overweight GI Symptoms Last / x1 Skin Integrity/Comment: Skin: Dryness, multiple small scabs to lower extremities, self-inflicted Mansoor: 21 Current %PO Good (75-100%) Estimated Nutritional Goals BEE in Kcals: Using Current wt Calories/Kcals/Kg 25-30 Kcals Calculated 6875-3428 Protein: Using Current wt Protein g/k.0-1.2 Protein Calculated 60-75 Fluid: ml 5525-9492 ml (25-30 ml/kg) Nutritional Problem 1. Problem Problem No nutrition diagnosis at this time. Etiology N/A Signs/Symptoms: N/A Malnutrition Related to Morbid Obesity Malnutrition related to morbid obesity No Intervention/Recommendation Comments Continue Mechanical Soft, MAURA diet as tolerated. Expected Outcomes/Goals Expected Outcomes/Goals 1. PO intake to continue to meet >75% of estimated nutritional needs. 2. Monitor PO intake, wt, nutrition related labs, and skin integrity to trend WNL. 3. F/U as low risk in 7-10 days, 11/21-11/24
[2019-11-22] MEDS: Maalox 30 mL Cup PO PRN (21:27)
[2019-11-23] MEDS: Multivitamin Tab PO SCH (08:29)
--- NOTE | 2019-11-23 14:48 | Discharge Summary ---
DATE OF DISCHARGE: 11/23/2019 IDENTIFYING INFORMATION: The patient is a 69-year-old male. CHIEF COMPLAINT/ HISTORY OF PRESENT ILLNESS: The patient brought from [facility] because of psychosis. The patient had no answer. The patient was having visual hallucinations, seeing things, hearing voices and had many things, but could not elaborate. I have seen him a week before. He was psychotic and voices, medically cleared at [facility] with a history of paranoid schizophrenia, depression, bipolar. The patient was a poor historian, would not cooperate in any formal mental status examination, and was sleepy. He has multiple prior admissions because for similar reason. He also has a history of hypertension, osteoarthritis, seizure disorder, hyperlipidemia, COPD He is continent of bowel and bladder. COURSE IN THE HOSPITAL: The patient was started back on medication of Seroquel, the dose was increased to 400 mg twice a day with Depakote was added and increased the dose to 50 mg 3 times a day, was continued with iron, Keppra for seizure disorder, metoprolol for hypertension. The patient progressively got better. He was no longer delusional or psychotic, though he has some delusions , but it was not very prominent. He was not acting anyway dangerous, so we felt he could be discharged to a lesser level of care. FINAL DIAGNOSIS: Schizoaffective disorder. MEDICAL DIAGNOSES: Seizure disorder, hypertension, gastroesophageal reflux disease. FOLLOWUP: The patient will be going to [facility]. We will follow up with the psychiatrist and primary care physician. EXPECTED OUTCOME: Stable if the patient complies with the above. JOB# [id number] [facility]
[2019-11-23] MEDS: Maalox 30 mL Cup PO PRN (17:03)
== END 2019-11-23 18:00 | DRG 885 ==
LOC: GERO 19:20
PROVIDERS: ADMIT Psychiatry & Neurology Psychiatry; ATTEND Psychiatry & Neurology Psychiatry
DX: F25.0 Schizoaffective disorder, bipolar type (principal); I10 Essential (primary) hypertension; G40.909 Epilepsy, unspecified, not intractable, without status epilepticus; F29 Unspecified psychosis not due to a substance or known physiological condition; K21.9 Gastro-esophageal reflux disease without esophagitis; J44.9 Chronic obstructive pulmonary disease, unspecified; F32.9 Major depressive disorder, single episode, unspecified; Z88.8 Allergy status to other drugs, medicaments and biological substances; Z79.899 Other long term (current) drug therapy
CPT/HCPCS: 83036-90; G0410; Z7610